=== PATIENT | male | born 1955 | race African-American/Black ===

== ENCOUNTER 2019-04-12 23:01 | Emergency (ER) | payer MEDICARE, SELFPAY ==
--- NOTE | 2019-04-12 23:05 | ECG_ITS ---
Measurements Intervals [place] Rate: 123 P: 64 [place]: 132 QRS: -44 QRSD: 88 T: 94 QT: 287 QTc: 412 SINUS TACHYCARDIA MARKED LEFT AXIS DEVIATION [QRS AXIS < -30] LEFT VENTRICULAR HYPERTROPHY AND ST-T CHANGE [VOLTAGE CRITERIA PLUS ST/T ABNORMALITY] Compared to ECG 10/03/2018 05:11:42 Sinus rhythm no longer present Myocardial infarct finding no longer present ST (T wave) deviation still present Electronically Signed On 04-13-2019 14:39:07 MEDICAL DEVICE by Wander Alvarado M.D. [id number]
--- NOTE | 2019-04-12 23:05 | XR_ITS ---
WS: [id number] CHEST XRAY TECHNIQUE: Portable chest. CLINICAL INFORMATION: cp COMPARISON: September 27, 2018 FINDINGS: Heart: Normal cardiac silhouette. Tortuous thoracic aorta. Lungs: Chronic emphysematous changes. Subsegmental atelectasis right midlung. No acute pulmonary infi ltrates. Bones: Normal visualized bony structures. XR/XR chest 1V portable [id number] IMPRESSION: No acute chest findings
[2019-04-12 23:12] VITALS: BP 105/86; PULSE 100; RESP 20; TEMP 36.7; O2SAT 100; BMI 25.8
[2019-04-13 00:06] LABS: Basophils % 0.5 %; Eosinophils # 0.2 10^3/uL (0.0-0.8); Hematocrit 41.3 % (42.0-52.0); Hemoglobin 13.1 g/dL (11.7-16.6); Lymphocytes # 1.8 10^3/uL (0.8-4.8); Lymphocytes % 22.2 %; Mean Corpuscular HGB Conc 31.7 g/dL (30.0-36.0); Mean Corpuscular Hemoglobin 30.9 pg (28.0-34.0); Mean Corpuscular Volume 97.4 fL (80-94); Mean Platelet Volume 10.1 fL (7.4-10.4); Monocytes # 0.6 10^3/uL (0.2-0.9); Monocytes % 7.2 %; Neutrophils # 5.3 10^3/uL (1.8-7.7); Neutrophils % 67.8 %; Nucleated Red Blood Cells % 0 %; Platelet Count 271 10^3/cmm (130-400); Red Blood Count 4.24 10^6/uL (4.1-5.3); White Blood Count 7.9 10^3/uL (4.0-10.0)
[2019-04-13 00:20] LABS: Alanine Aminotransferase 16 U/L (0-41); Albumin Level 3.8 g/dL (3.5-5.2); Alkaline Phosphatase 106 IU/L (40-130); Anion Gap 17.3 (5-19); Aspartate Amino Transferase 25 U/L (0-40); Blood Urea Nitrogen 17 mg/dL (8-23); Calcium 9.4 mg/Dl (8.8-10.2); Carbon Dioxide 21 mmol/L (22-29); Chloride 104 mmol/L (98-107); Globulin 4.2 g/dL (1.3-4.6); Glomerular Filtration Rate 43.5 mL/min (90-130); Glucose 125 mg/dL (74-106); Potassium 4.3 mmol/L (3.5-5.1); Sodium 138 mmol/L (136-145); Total Bilirubin 0.2 mg/dL (0.15-1.2)
[2019-04-13 00:23] LABS: Troponin(5th) Baseline 26 ng/mL (0-15)
[2019-04-13 00:49] VITALS: BP 172/131; PULSE 120; RESP 24; O2SAT 98
--- NOTE | 2019-04-13 00:52 | ED_ITS ---
Entered by Verónica Tavares, acting as scribe for Emily Francisco MD Apr 12, 2019 23:01 HPI - Chest Pain General: Chief Complaint: Chest Pain Stated Complaint: CP Time Seen by Provider: 04/13/19 00:49 Source: patient Limitations: no limitations History of Present Illness: HPI narrative: 63 y/o male presents to the ED with complaint of chest discomfort and SOB. Pt states he has CHF and is followed by Dr. Berrios. Pt has also had a gout flare-up. Pt states he has had intermittent episodes for the past month. MD complaint: chest pain Onset (ago): hour(s) Timing of current episode: episodic Prior episodes: Yes Associated symptoms: Reports dyspnea; Deny abdominal pain, fever(s), nausea or vomiting Review of Systems Const: Denies: fever Eyes: Denies: change in vision ENMT: Denies: throat pain Card: Reports: chest pain Resp: Reports: shortness of breath GI: Denies: abdominal pain, nausea or vomiting Musc: Denies: back pain or joint pain Skin/Breast: Denies: rash Neuro: Denies: headache or behavioral changes Psych: Denies: depression Endo: Denies: excessive urination Kameron/Lymph: Denies: easy bruising All/Imm: Denies: hives PFSH ED PFSH: Statuses (acute, chronic, etc) shown below reflect problem list status as previously entered and may not be historically accurate Social History Smoking and tobacco status: current some day smoker Physical Exam Const: COMMON NORMALS: no apparent distress, oriented x3 and healthy appearing HENMT: COMMON NORMALS: normocephalic and external nose normal HEAD & SCALP: normocephalic NOSE: external nose normal Eye: COMMON NORMALS: PERRL PUPIL: Yes PERRL Neck/C-Spine: COMMON NORMALS: full ROM and no lymphadenopathy Chest: COMMONS NORMALS: inspection of chest normal Resp: COMMON NORMALS: normal respiratory effort, no use of accessory muscles and clear to auscultation bilaterally AUSCULTATION: clear to auscultation bilaterally Cardio: COMMON NORMALS: regular rate and regular rhythm RATE: regular rate RHYTHM: regular rhythm GI: COMMON NORMALS: normal to inspection, nondistended, normoactive bowel sounds, soft to palpation, non-tender and no masses PALPATION: Yes soft Back/Pelvis: THORACIC SPINE/UPPER BACK: Yes normal to inspection Extremity: COMMON NORMALS: normal to inspection, full ROM and normal capillary refill GENERAL: Yes weight-bearing difficulty LEFT LOWER EXTREMITY: Yes lower leg Neuro: COMMON NORMALS: oriented x3 Psych: COMMON NORMALS: mental status grossly normal and cooperative Skin: COMMON NORMALS: no rashes or lesions noted GENERAL SKIN EXAM: no rashes or lesions noted Course Vital Signs: Vital signs: Vital Signs Temperature 98.0 F 04/12/19 23:12 Pulse Rate 84 04/13/19 02:51 Respiratory Rate 23 H 04/13/19 02:51 Blood Pressure 172/110 04/13/19 02:51 Pulse Oximetry 99 04/13/19 02:51 MDM - Chest Pain MDM Narrative: Medical decision making narrative: Patient presents here with chest pain that is atypical in nature. He states is been going on for months. Patient's repeat troponin shows no delta change. EKGs here show no change from previous. He has no signs of acute coronary event. Patient CT scan here is normal. Patient is stable for discharge and is to follow-up with primary care doctor in 3 to 5 days and return if worsening. Lab Data: Labs: Lab Results 04/12/19 04/12/19 04/12/19 Range/Units 23:45 23:45 23:45 WBC 7.9 (4.0-10.0) 10^3/ uL RBC 4.24 (4.1-5.3) 10^6/u L Hgb 13.1 (11.7-16.6) g/dL Hct 41.3 L (42.0-52.0) % MCV 97.4 H (80-94) fL MCH 30.9 (28.0-34.0) pg MCHC 31.7 (30.0-36.0) g/dL RDW 14.0 (12.1-15.1) % Plt Count 271 (130-400) 10^3/c mm MPV 10.1 (7.4-10.4) fL Neut % (Auto) 67.8 % Lymph % (Auto) 22.2 % Crawford % (Auto) 7.2 % Eos % (Auto) 2.0 % Baso % (Auto) 0.5 % Neut # (Auto) 5.3 (1.8-7.7) 10^3/u L Lymph # (Auto) 1.8 (0.8-4.8) 10^3/u L Crawford # (Auto) 0.6 (0.2-0.9) 10^3/u L Eos # (Auto) 0.2 (0.0-0.8) 10^3/u L Baso # (Auto) 0.0 (0.0-0.1) 10^3/u L Nucleated RBC % (a uto) 0 % Nucleated RBCs # 0.0 /100WBC Sodium 138 (136-145) mmol/L Potassium 4.3 (3.5-5.1) mmol/L Chloride 104 (98-107) mmol/L Carbon Dioxide 21 L (22-29) mmol/L Anion Gap 17.3 (5-19) BUN 17 (8-23) mg/dL Creatinine 1.9 H (0.7-1.2) mg/dL GFR Calculation 43.5 L (90-130) mL/min Glucose 125 H (74-106) mg/dL Calcium 9.4 (8.8-10.2) mg/Dl Total Bilirubin 0.2 (0.15-1.2) mg/dL AST 25 (0-40) U/L ALT 16 (0-41) U/L Alkaline Phosphata se 106 (40-130) IU/L Troponin T Baselin e 26 H (0-15) ng/mL Troponin T 120 Min [place] (0-15) ng/mL Delta Troponin T (0-10) ABS# NT-Pro-B Natriuret Pep (0-125) pg/mL Total Protein 8.0 (6.6-8.7) g/dL Albumin 3.8 (3.5-5.2) g/dL Globulin 4.2 (1.3-4.6) g/dL 04/12/19 04/13/19 Range/Units 23:45 00:58 WBC (4.0-10.0) 10^3/ uL RBC (4.1-5.3) 10^6/u L Hgb (11.7-16.6) g/dL Hct (42.0-52.0) % MCV (80-94) fL MCH (28.0-34.0) pg MCHC (30.0-36.0) g/dL RDW (12.1-15.1) % Plt Count (130-400) 10^3/c mm MPV (7.4-10.4) fL Neut % (Auto) % Lymph % (Auto) % Crawford % (Auto) % Eos % (Auto) % Baso % (Auto) % Neut # (Auto) (1.8-7.7) 10^3/u L Lymph # (Auto) (0.8-4.8) 10^3/u L Crawford # (Auto) (0.2-0.9) 10^3/u L Eos # (Auto) (0.0-0.8) 10^3/u L Baso # (Auto) (0.0-0.1) 10^3/u L Nucleated RBC % (a uto) % Nucleated RBCs # /100WBC Sodium (136-145) mmol/L Potassium (3.5-5.1) mmol/L Chloride (98-107) mmol/L Carbon Dioxide (22-29) mmol/L Anion Gap (5-19) BUN (8-23) mg/dL Creatinine (0.7-1.2) mg/dL GFR Calculation (90-130) mL/min Glucose (74-106) mg/dL Calcium (8.8-10.2) mg/Dl Total Bilirubin (0.15-1.2) mg/dL AST (0-40) U/L ALT (0-41) U/L Alkaline Phosphata se (40-130) IU/L Troponin T Baselin e (0-15) ng/mL Troponin T 120 [address] [place] 24.17 H (0-15) ng/mL Delta Troponin T -1.83 L (0-10) ABS# NT-Pro-B Natriuret Pep 2438 H (0-125) pg/mL Total Protein (6.6-8.7) g/dL Albumin (3.5-5.2) g/dL Globulin (1.3-4.6) g/dL Imaging Data^: CT Chest: Radiologist's impression: Ordering Physician: Emily Francisco MD Date of Service: 04/13/19 Procedure(s): CT angio chest PE protcl [id number] Accession Number(s): [id number] cc: Emily Francisco MD PROCEDURE INFORMATION: Exam: CT Angiography Chest With Contrast Exam date and time: 04/13/2019 1:34 AM Age: 63 years old Clinical indication: Chest pain; Type not specified; Prior surgery; Surgery date: 6+ months; Surgery type: Stents; Additional info: Cp TECHNIQUE: Imaging protocol: Computed tomographic angiography of the chest with intravenous contrast. 3D rendering: MIP and/or 3D reconstructed images were created by the technologist. Total DLP: 1113.3 mGy-cm Radiation optimization: All CT scans at this facility use at least one of these dose optimization techniques: automated exposure control; mA and/or kV adjustment per patient size (includes targeted exams where dose is matched to clinical indication); or iterative reconstruction. Contrast material: VISI; Contrast volume: 95 ml; Contrast route: 20G; COMPARISON: CTA Chest-Pulmonary Emb [id number] 09/27/2018 8:19 AM FINDINGS: Pulmonary arteries: Normal. No pulmonary emboli. Aorta: Unremarkable. No aortic aneurysm. No aortic dissection. Inferior vena cava: There is some reflux of contrast material into the inferior vena cava and hepatic veins, findings that can be associated with heart failure. Lungs: There is a background of centrilobular emphysema. Pleural space: Unremarkable. No pneumothorax. No pleural effusion. Heart: Unremarkable. No cardiomegaly. No pericardial effusion. Kidneys and ureters: There are bilateral hypoattenuation cystic masses seen within both kidneys, largest is seen on the right measuring 2.2 cm. Lymph nodes: Unremarkable. No enlarged lymph nodes. Bones/joints: Unremarkable. No acute fracture. Soft tissues: Unremarkable. CT/CT angio chest PE protcl [id number] IMPRESSION: 1. There is no evidence for pulmonary emboli. 2. Reflux of contrast material in the inferior vena cava and hepatic veins could represent heart failure. 3. Multiple bilateral renal cysts, largest on the right measuring 2.2 cm. No further workup needed. EKG Data^: EKG 1: Attestation: I personally reviewed and interpreted this EKG as follows: EKG interpretation date: 04/13/19 EKG interpretation time: 23:07 Prior EKG tracings: available for review (no change ) Interpretation: Sinus tachycardia heart rate [address] or T wave abnormalities EKG 2: EKG interpretation date: 04/13/19 EKG interpretation time: 02:13 Prior EKG tracings: available for review Interpretation: Normal sinus rhythm heart rate 82 ST depression in V5 and V6 seen on previous EKGs no ST elevation QRS 91 QTC 411 Discharge Plan Discharge Patient Disposition: Home, Self-Care Clinical Impression: Chest pain Qualifiers: Chest pain type: unspecified Qualified Code(s): R07.9 - Chest pain, unspecified Hypertension Qualifiers: Hypertension type: essential hypertension Qualified Code(s): I10 - Essential (primary) hypertension Condition: Stable Prescriptions: New albuterol sulfate 90 mcg/actuation HFA aerosol inhaler 2 puff INHALATION Q6H PRN (Reason: shortness of breath or wheezing) Qty: 6.7 RF: 1 Discharge Orders: Discharge Order (Routine); Ordered 04/13/19 Ordered By: Emily Francisco Referrals: Desire Powers FNP [Primary Care Provider] - 4-7 days Discharge Diet: Advance as tolerated Discharge Activity: Resume usual activity Patient Instructions: Chest Pain (ED), Hypertension (ED) Discharge Date/Time: 04/13/19 02:52 Coding Level of Care Code ED Low Altitude Air Defense Gunner for Chg Fwd Exam Problem Focused The documentation recorded by the Chaitanya gregory Ashley, accurately reflects the service I personally performed and the decisions made by Nolan robert Korby, MD Apr 12, 2019 23:01
--- NOTE | 2019-04-13 00:56 | CTR_ITS ---
PROCEDURE INFORMATION: Exam: CT Angiography Chest With Contrast Exam date and time: 04/13/2019 1:34 AM Age: 63 years old Clinical indication: Chest pain; Type not specified; Prior surgery; Surgery date: 6+ months; Surgery type: Stents; Additional info: Cp TECHNIQUE: Imaging protocol: Computed tomographic angiography of the chest with intravenous contrast. 3D rendering: MIP and/or 3D reconstructed images were created by the technologist. Total DLP: 1113.3 mGy-cm Radiation optimization: All CT scans at this facility use at least one of these dose optimization techniques: automated exposure control; mA and/or kV adjustment per patient size (includes targeted exams where dose is matched to clinical indication); or iterative reconstruction. Contrast material: VISI; Contrast volume: 95 ml; Contrast route: 20G; COMPARISON: CTA Chest-Pulmonary Emb [id number] 09/27/2018 8:19 AM FINDINGS: Pulmonary arteries: Normal. No pulmonary emboli. Aorta: Unremarkable. No aortic aneurysm. No aortic dissection. Inferior vena cava: There is some reflux of contrast material into the inferior vena cava and hepatic veins, findings that can be associated with heart failure. Lungs: There is a background of centrilobular emphysema. Pleural space: Unremarkable. No pneumothorax. No pleural effusion. Heart: Unremarkable. No cardiomegaly. No pericardial effusion. Kidneys and ureters: There are bilateral hypoattenuation cystic masses seen within both kidneys, largest is seen on the right measuring 2.2 cm. Lymph nodes: Unremarkable. No enlarged lymph nodes. Bones/joints: Unremarkable. No acute fracture. Soft tissues: Unremarkable. CT/CT angio chest PE protcl [id number] IMPRESSION: 1. There is no evidence for pulmonary emboli. 2. Reflux of contrast material in the inferior vena cava and hepatic veins could represent heart failure. 3. Multiple bilateral renal cysts, largest on the right measuring 2.2 cm. No further workup needed. Radiation Dose CTDIVOL = (mGy): DLP = 1113.3 (mGy-cm)
--- NOTE | 2019-04-13 01:05 | ECG_ITS ---
Measurements Intervals [place] Rate: 82 P: 66 SD: 150 QRS: -47 QRSD: 91 T: 143 QT: 372 QTc: 436 SINUS RHYTHM LEFT AXIS DEVIATION [QRS AXIS < -30] LEFT VENTRICULAR HYPERTROPHY AND ST-T CHANGE [VOLTAGE CRITERIA PLUS ST/T ABNORMALITY] POSSIBLE ANTERIOR MYOCARDIAL INFARCTION , OF INDETERMINATE AGE [30 ms Q WAVE IN V3/V4, OR R < 0.2 mV IN V4] Compared to ECG 10/03/2018 05:11:42 No significant changes Electronically Signed On 04-13-2019 14:44:23 MARKETING AND DEVELOPMENT COORDINATOR by Wander Alvarado M.D. [id number]
[2019-04-13 01:08] VITALS: RESP 23
[2019-04-13] MEDS: morphine 4 mg/mL SDV 1 mL IVP (01:08)
[2019-04-13] MEDS: aspirin 325 mg Tablet PO (01:08)
[2019-04-13 01:21] LABS: NT Pro B Type Natriuretic Pept 2438 pg/mL (0-125)
[2019-04-13 01:29] VITALS: BP 166/120; PULSE 91; RESP 21; O2SAT 99
[2019-04-13 01:56] LABS: Troponin 5 2HR 24.17 ng/mL (0-15)
[2019-04-13] MEDS: iodixanol 320 mg/mL 100mL Btl IV (01:57)
[2019-04-13 01:59] LABS: Troponin 5 2HR Delta -1.83 ABS# (0-10)
[2019-04-13] MEDS: FUROsemide 10 mg/mL SDV 10mL 60 MG IVP (01:59)
[2019-04-13 02:51] VITALS: BP 172/110; PULSE 84; RESP 23; O2SAT 99
== END 2019-04-13 02:52 | disposition home or self-care (01) ==
PROVIDERS: Emergency Provider Emergency Medicine; Family Provider Nurse Practitioner; PCP Nurse Practitioner
DX: R07.9 Chest pain, unspecified (principal); I10 Essential (primary) hypertension; F17.210 Nicotine dependence, cigarettes, uncomplicated
CPT/HCPCS: 71045; 71275; 80053; 83880; 84484; 85025; 93005; 96374; 96375; 99282; J1940; J2270; Q9967

== ENCOUNTER 2019-07-20 04:10 | Emergency (ER) | payer MEDICARE, SELFPAY ==
--- NOTE | 2019-07-20 04:14 | ECG_ITS ---
Measurements Intervals [place] Rate: 96 P: 84 [place]: 144 QRS: 108 QRSD: 88 T: 125 QT: 338 QTc: 428 SINUS RHYTHM INDETERMINATE AXIS LEFT VENTRICULAR HYPERTROPHY AND ST-T CHANGE [VOLTAGE CRITERIA PLUS ST/T ABN ABNORMALITY] LATERAL MYOCARDIAL INFARCTION , OF INDETERMINATE AGE [40+ ms Q WAVE AND/OR ST/T AB ABNORMALITY IN I/aVL/V5/V6] Compared to ECG 04/13/2019 02:13:18 Indeterminate axis now present Left-axis deviation no longer present ST (T wave) deviation still present Myocardial infarct finding still present Electronically Signed On 07-20-2019 18:24:54 CDT by Sourav Berrios M.D. [id number]
--- NOTE | 2019-07-20 04:14 | XR_ITS ---
WS: [id number] PORTABLE CHEST HISTORY: Chest pain COMPARISON: 04/13/2019 Hyperinflated lungs. Linear areas of scar atelectasis in the central RIGHT lung. Normal vasculature. No pleural effusion or pneumothorax. Cardiac size: Mildly enlarged cardiac silhouette. Mediastinum/Aorta: Mildly ectatic aorta. Pulmonary arteries are dilated with rapid tapering. No osseous abnormality seen. XR/XR chest 1V portable [id number] IMPRESSION: 1. Mild emphysema and focal scarring or atelectasis in the RIGHT lung. 2. Ectatic thoracic aorta. 3. Pulmonary hypertension.
--- NOTE | 2019-07-20 04:17 | ED_ITS ---
HPI - Chest Pain General: Chief Complaint: Chest Pain Stated Complaint: chest pain Time Seen by Provider: 07/20/19 04:14 Source: patient and EMS Mode of arrival: EMS Limitations: no limitations History of Present Illness: HPI narrative: 64-year-old male has a history of coronary artery disease along with hypertension states he has been having pain in his ankles from his gout that started to radiate to his chest. He states his been having chest pain for the last 1 to 2 days. Patient given aspirin in route. He states his pain is improved slightly and currently has pain at 3 out of 10. He states the pain is been constant. He denies any shortness of breath or diaphoresis. MD complaint: chest pain Pertinent past history: coronary artery disease Onset (ago): day(s) Onset: during rest Pain location: substernal Pain radiation: none Severity: mild Quality: tightness Relieving factors: nothing Exacerbating factors: nothing Associated symptoms: Deny abdominal pain, dyspnea, fever(s), nausea or vomiting Review of Systems Const: Denies: fever, chills, body aches or change in appetite Eyes: Denies: blurry vision or eye discomfort ENMT: Denies: throat pain or dental pain Card: Reports: chest pain Resp: Denies: shortness of breath GI: Denies: abdominal pain, nausea, vomiting or diarrhea : Denies: painful urination Musc: Reports: joint pain; Denies: neck pain or back pain Skin/Breast: Denies: rash Neuro: Denies: headache Psych: Denies: depression Kameron/Lymph: Denies: easy bruising All/Imm: Denies: hives PFS ED PFSH: Social History Smoking and tobacco status: current every day smoker Physical Exam Const: COMMON NORMALS: no apparent distress, oriented x3 and healthy appearing HENMT: COMMON NORMALS: normocephalic and head/scalp atraumatic HEAD & SCALP: normocephalic and atraumatic Eye: COMMON NORMALS: PERRL and EOMs intact bilaterally PUPIL: Yes PERRL Neck/C-Spine: COMMON NORMALS: full ROM and supple Chest: COMMONS NORMALS: inspection of chest normal and palpation of chest normal Resp: COMMON NORMALS: normal respiratory effort, no retractions, no use of accessory muscles and clear to auscultation bilaterally AUSCULTATION: clear to auscultation bilaterally Cardio: COMMON NORMALS: regular rate, regular rhythm and no murmurs RATE: regular rate RHYTHM: regular rhythm GI: COMMON NORMALS: normal to inspection, nondistended, normoactive bowel sounds, soft to palpation, non-tender and no masses PALPATION: Yes soft Extremity: COMMON NORMALS: normal to inspection and full ROM Neuro: COMMON NORMALS: oriented x3, moves all extremities and no focal motor deficits Psych: COMMON NORMALS: mental status grossly normal, thought process normal and cooperative THOUGHT PROCESS: normal thought process Skin: COMMON NORMALS: no rashes or lesions noted and no wounds GENERAL SKIN EXAM: no rashes or lesions noted Course Vital Signs: Vital signs: Vital Signs Temperature 98.4 F 07/20/19 04:21 Pulse Rate 98 07/20/19 04:21 Respiratory Rate 16 07/20/19 04:33 Blood Pressure 161/111 07/20/19 04:21 Pulse Oximetry 98 07/20/19 04:33 MDM - Chest Pain MDM Narrative: Medical decision making narrative: Patient presents for chest pain that is atypical in nature. Patient also ankle pain from his gout. Patient's initial troponin is 46. Will check 2-hour troponin patient likely will be stable for discharge if no change. He has no signs of pulmonary embolism. Patient's care turned over to Dr. Michelle to follow-up on 2-hour troponin. Lab Data: Labs: Lab Results 07/20/19 07/20/19 07/20/19 Range/Units 04:02 04:02 04:02 WBC 6.9 (4.0-10.0) 10^3/ uL RBC 4.20 (4.1-5.3) 10^6/u L Hgb 12.8 (11.7-16.6) g/dL Hct 40.4 L (42.0-52.0) % MCV 96.2 H (80-94) fL MCH 30.5 (28.0-34.0) pg MCHC 31.7 (30.0-36.0) g/dL RDW 14.4 (12.1-15.1) % Plt Count 241 (130-400) 10^3/c mm MPV 11.5 H (7.4-10.4) fL Neut % (Auto) 65.1 % Lymph % (Auto) 22.7 % Terrell % (Auto) 10.2 % Eos % (Auto) 1.2 % Baso % (Auto) 0.7 % Neut # (Auto) 4.5 (1.8-7.7) 10^3/u L Lymph # (Auto) 1.6 (0.8-4.8) 10^3/u L [place]rell # (Auto) 0.7 (0.2-0.9) 10^3/u L Eos # (Auto) 0.1 (0.0-0.8) 10^3/u L Baso # (Auto) 0.1 (0.0-0.1) 10^3/u L Nucleated RBC % (a uto) 0 % Nucleated RBCs # 0.0 /100WBC Sodium 138 (136-145) mmol/L Potassium 4.6 (3.5-5.1) mmol/L Chloride 103 (98-107) mmol/L Carbon Dioxide 22 (22-29) mmol/L Anion Gap 17.6 (5-19) BUN 27 H (8-23) mg/dL Creatinine 2.4 H (0.7-1.2) mg/dL GFR Calculation 33.1 L (90-130) mL/min Glucose 110 (65-115) mg/dL Calculated Osmolal ity 284 L (285-295) mOsm/k g Calcium 8.6 (8.5-10.5) mg/dL Total Bilirubin 0.4 (0.15-1.2) mg/dL AST 34 (0-40) U/L ALT 16 (0-41) U/L Alkaline Phosphata se 97 (40-130) IU/L Troponin T Baselin e 46 H (0-15) ng/mL Total Protein 6.3 L (6.6-8.7) g/dL Albumin 2.9 L (3.5-5.2) g/dL Globulin 3.4 (1.3-4.6) g/dL Imaging Data^: CXR: Attestation: I personally reviewed and interpreted this imaging study as follows: My impression: no acute abnormality Discharge Plan Discharge Clinical Impression: Chest pain Condition: Stable Prescriptions: No Action albuterol sulfate 90 mcg/actuation HFA aerosol inhaler 2 puff INHALATION Q6H PRN (Reason: shortness of breath or wheezing) Qty: 6.7 RF: 1 Referrals: Desire Powers FNP [Primary Care Provider] - Coding Level of Care Code ED Clinical Data Management Director for Chg Fwd Exam Comprehensive
[2019-07-20 04:21] VITALS: BP 161/111; PULSE 98; RESP 20; TEMP 36.9; O2SAT 98; BMI 25.8
[2019-07-20 04:33] VITALS: RESP 16; O2SAT 98
[2019-07-20] MEDS: morphine 4 mg/mL SDV 1 mL IVP (04:33)
[2019-07-20 04:34] LABS: Basophils # 0.1 10^3/uL (0.0-0.1); Basophils % 0.7 %; Eosinophils # 0.1 10^3/uL (0.0-0.8); Eosinophils % 1.2 %; Hematocrit 40.4 % (42.0-52.0); Hemoglobin 12.8 g/dL (11.7-16.6); Lymphocytes # 1.6 10^3/uL (0.8-4.8); Lymphocytes % 22.7 %; Mean Corpuscular HGB Conc 31.7 g/dL (30.0-36.0); Mean Corpuscular Hemoglobin 30.5 pg (28.0-34.0); Mean Corpuscular Volume 96.2 fL (80-94); Mean Platelet Volume 11.5 fL (7.4-10.4); Monocytes # 0.7 10^3/uL (0.2-0.9); Monocytes % 10.2 %; Neutrophils # 4.5 10^3/uL (1.8-7.7); Neutrophils % 65.1 %; Nucleated Red Blood Cells % 0 %; Platelet Count 241 10^3/cmm (130-400); Red Cell Distribution Width 14.4 % (12.1-15.1); White Blood Count 6.9 10^3/uL (4.0-10.0)
[2019-07-20] MEDS: ondansetron 2 mg/ML SDV 2 mL 4 MG IVP (04:34)
[2019-07-20 04:59] LABS: Alanine Aminotransferase 16 U/L (0-41); Albumin Level 2.9 g/dL (3.5-5.2); Alkaline Phosphatase 97 IU/L (40-130); Anion Gap 17.6 (5-19); Aspartate Amino Transferase 34 U/L (0-40); Blood Urea Nitrogen 27 mg/dL (8-23); Calcium 8.6 mg/dL (8.5-10.5); Carbon Dioxide 22 mmol/L (22-29); Chloride 103 mmol/L (98-107); Globulin 3.4 g/dL (1.3-4.6); Glomerular Filtration Rate 33.1 mL/min (90-130); Glucose 110 mg/dL (65-115); Osmolality Calculated 284 mOsm/kg (285-295); Potassium 4.6 mmol/L (3.5-5.1); Sodium 138 mmol/L (136-145); Total Bilirubin 0.4 mg/dL (0.15-1.2); Total Protein 6.3 g/dL (6.6-8.7)
[2019-07-20 05:01] LABS: Troponin(5th) Baseline 46 ng/mL (0-15)
--- NOTE | 2019-07-20 05:10 | PC.NURSE ---
during pt rounds, pt requesting water to drink. Per Dr Nichols, renato for pt to drink water
--- NOTE | 2019-07-20 06:08 | PC.NURSE ---
during pt rounding, pt states he is having increased work of breathing. Pt states he has not taken his Rx advair last noc, only rescue inhaler
--- NOTE | 2019-07-20 06:14 | ECG_ITS ---
Measurements Intervals [place] Rate: 86 P: 51 [place]: 145 QRS: -40 QRSD: 89 T: 223 QT: 365 QTc: 437 SINUS RHYTHM LEFT AXIS DEVIATION [QRS AXIS < -30] LEFT VENTRICULAR HYPERTROPHY AND ST-T CHANGE [VOLTAGE CRITERIA PLUS ST/T AB ABNORMALITY] Compared to ECG 04/13/2019 02:13:18 Myocardial infarct finding no longer present ST (T wave) deviation still present Electronically Signed On 07-20-2019 18:26:49 CDT by Sourav Berrios M.D. [id number]
[2019-07-20] MEDS: ipratropium-albuterol 3 mL Neb INHALATION (06:17)
[2019-07-20] MEDS: hyDRALAzine 20 mg/mL INJ 1 mL 10 MG IVP (06:23)
[2019-07-20 06:27] VITALS: PULSE 88; RESP 15; O2SAT 99
[2019-07-20 06:29] VITALS: PULSE 91; RESP 15; O2SAT 100
[2019-07-20 06:37] LABS: Troponin 5 2HR 41.11 ng/mL (0-15)
[2019-07-20 07:16] VITALS: BP 156/121; PULSE 119; RESP 22; O2SAT 97
== END 2019-07-20 07:16 | disposition home or self-care (01) ==
PROVIDERS: Emergency Medicine; Emergency Provider Family Medicine; Family Provider Nurse Practitioner; PCP Nurse Practitioner
DX: R07.9 Chest pain, unspecified (principal); I25.10 Atherosclerotic heart disease of native coronary artery without angina pectoris; I10 Essential (primary) hypertension; F17.210 Nicotine dependence, cigarettes, uncomplicated
CPT/HCPCS: 12345; 36415; 71045; 80053; 84484; 85025; 93005; 94640; 96374; 96375; 99283; 99284; J0360; J2270; J2405; J7611

== ENCOUNTER → 2019-08-13 11:29 | Outpatient (BNVA) | payer MEDICARE, SELFPAY | PROVIDERS: Family Provider Nurse Practitioner; PCP Family Medicine; Referring Provider Family Medicine; Visit Provider Family Medicine | DX: I12.9 Hypertensive chronic kidney disease with stage 1 through stage 4 chronic kidney disease, or unspecified chronic kidney disease (principal); N18.3 Chronic kidney disease, stage 3 (moderate); N40.0 Benign prostatic hyperplasia without lower urinary tract symptoms; I25.5 Ischemic cardiomyopathy | CPT/HCPCS: 80053; G0103 ==

== ENCOUNTER 2019-08-16 10:24 | Inpatient (IN) | payer MEDICARE, SELFPAY ==
[2019-08-16 10:35] VITALS: BP 144/91; PULSE 82; RESP 20; O2SAT 98; BMI 26.6
--- NOTE | 2019-08-16 10:42 | ECG_ITS ---
Measurements Intervals [place] Rate: 78 P: 46 [place]: 142 QRS: -40 QRSD: 89 T: 209 QT: 407 QTc: 466 SINUS RHYTHM LEFT AXIS DEVIATION [QRS AXIS < -30] LEFT VENTRICULAR HYPERTROPHY AND ST-T CHANGE [VOLTAGE CRITERIA PLUS ST/T ABN ABNORMALITY] POSSIBLE SEPTAL MYOCARDIAL INFARCTION , OF INDETERMINATE AGE [30 ms Q WAVE IN V1 V1/V2] Compared to ECG 08/16/2019 11:00:41 Myocardial infarct finding now present Sinus arrhythmia no longer present ST (T wave) deviation still present Electronically Signed On 08-17-2019 13:00:19 CDT by Wander Alvarado M.D. [id number]
--- NOTE | 2019-08-16 10:42 | XR_ITS ---
WS: [id number] PORTABLE CHEST HISTORY: SOB COMPARISON: None available. Mild hyperexpansion of the lungs. Focal scar or atelectasis in the central RIGHT lung. No pneumonia. No pleural effusion or pneumothorax. Cardiac size: Normal. Mediastinum/Aorta: Mild atherosclerosis aorta. No osseous abnormality seen. XR/XR chest 1V portable [id number] IMPRESSION: Stable chest. Chronic emphysema.
--- NOTE | 2019-08-16 10:45 | ED_ITS ---
Documented by User: RICHIE Castellanos 08/16/19 15:13 HPI - SOB/Dyspnea General: Chief Complaint: Shortness of Breath/Dyspnea Stated Complaint: DIRECT ADMIT Time Seen by Provider: 08/16/19 10:40 History of Present Illness: HPI Narrative: Patient is a 64-year-old male who comes to the ED with shortness of breath. Patient has a past medical history of pulmonary hypertension, hypertension, hyperlipidemia, CKD, systolic and diastolic heart failure and ischemic cardiomyopathy. Patient was sent to the ED for direct admit by Dr. Berrios. Patient has been having increased shortness of breath upon ambulation and also when laying flat. Patient says that increasing shortness of breath has been occurring over the past several weeks. Denies having any chest pain. He states he does have some mild tingling in his upper left extremity. Dr. Berrios would like patient to be admitted so he can perform an echo. Associated symptoms: Reports orthopnea; Deny abdominal pain, chest pain, fever(s), nausea, palpitations or vomiting Review of Systems Const: Denies: fever(s), chills or fatigue Eyes: Denies: change in vision or eye discomfort ENMT: Denies: throat pain, odynophagia, nasal discharge or nasal congestion Card: Reports: dyspnea on exertion and orthopnea; Denies: chest pain, palpitations, edema or swelling of feet/ankles Resp: Reports: dyspnea; Denies: productive cough or non-productive cough GI: Denies: abdominal pain, nausea, vomiting, diarrhea, constipation or hematochezia : Denies: flank pain, difficulty urinating, dysuria or hematuria Musc: Denies: neck pain, back pain or extremity swelling Skin/Breast: Denies: rash or new lesions Neuro: Denies: headache(s), numbness in extremities or weakness in extremities PFSH ED PFSH: Medical History Chronic kidney disease Combined systolic and diastolic cardiac dysfunction 12/06/2018: LVEF 56%, mild aortic stenosis, mild aortic regurgitation, severe pulmonary hypertension 70 mmHg History of pulmonary embolism Hyperlipidemia Hypertension Ischemic cardiomyopathy Mild aortic regurgitation Mild aortic stenosis 12/07/2018: Mean gradient 4.6 mmHg, aortic valve area 2.2 cm? Moderate to severe pulmonary hypertension 12/07/2018: 70 mmHg Presence of stent in LAD coronary artery Smoking Family History Family/Other Cancer Mother Dementia Diabetes Sister Diabetes Denies family history of CAD (coronary artery disease) Clotting disorder Hyperlipidemia Psychiatric illness Chronic kidney disease (CKD) Suicide Anesthesia complication Bleeding disorder Family history of premature coronary artery disease Lung disease Hypertension Stroke Social History Smoking and tobacco status: current every day smoker cigarettes Years cigaret kristen smoked: 20 Physical Exam Const: COMMON NORMALS: patient oriented x3 HENMT: COMMON NORMALS: normocephalic HEAD & SCALP: normocephalic MOUTH: Normal oral and palatal mucosa present THROAT: posterior oropharynx normal and uvula midline Neck/C-Spine: COMMON NORMALS: supple GENERAL: Yes normal visual inspection Resp: COMMON NORMALS: normal respiratory effort, No retractions, No use of accessory muscles and clear to auscultation bilaterally EFFORT & INSPECTION: Yes tachypneic and Yes labored (patient appeared to labor and his breathing. He was not able to speak in complete sentences and took breaks to breathe.) AUSCULTATION: clear to auscultation bilaterally Cardio: COMMON NORMALS: regular rate, regular rhythm, S1 normal heart sound present, S2 normal heart sound present, No gallops present (Cardio), No clicks present (Cardio), No murmurs present (Cardio) and Peripheral pulses 2+ throughout RATE: regular rate RHYTHM: regular rhythm HEART SOUNDS: S1 normal heart sound present and S2 normal heart sound present PERIPHERAL PULSES: Peripheral pulses 2+ throughout GI: COMMON NORMALS: Normal to inspection, nondistended, normoactive bowel sounds present, Soft to palpation, non-tender and no masses PALPATION: Yes Soft to palpation : COMMON NORMALS: Yes no CVA tenderness BLADDER/KIDNEY EXAM: Yes no CVA tenderness Back/Pelvis: COMMON NORMALS: no CVA tenderness Extremity: COMMON NORMALS: normal to inspection and no pedal edema Neuro: COMMON NORMALS: patient oriented x3 and moves all extremities Skin: COMMON NORMALS: no rashes or lesions noted GENERAL SKIN EXAM: no rashes or lesions noted and dry skin Course ED course: I spoke with Dr. Fraser about patient and told her that he was sent in by Dr. German to be a direct admit. I have done all initial cardiac work-up on patient. Dr. Fraser will be handling admitting orders for patient. Consultations: Consultation #1: Vital Signs: Vital signs: Vital Signs Pulse Rate 73 08/16/19 17:05 Respiratory Rate 20 H 08/16/19 17:05 Blood Pressure 136/89 08/16/19 17:05 Pulse Oximetry 100 08/16/19 17:05 MDM - SOB/Dyspnea MDM Narrative: Medical decision making narrative: I spoke with Dr. Fraser about patient and told her that he was sent in by Dr. German to be a direct admit. I have done all initial cardiac work-up on patient. Dr. Fraser will be handling admitting orders for patient. Lab Data: Attestation: I reviewed the patient's lab results. Labs: Lab Results 08/16/19 08/16/19 08/16/19 Range/Units 10:43 10:44 11:14 WBC 6.6 (4.0-10.0) 10^3/ uL RBC 4.01 L (4.1-5.3) 10^6/u L Hgb 12.3 (11.7-16.6) g/dL Hct 39.0 L (42.0-52.0) % MCV 97.3 H (80-94) fL MCH 30.7 (28.0-34.0) pg MCHC 31.5 (30.0-36.0) g/dL RDW 16.2 H (12.1-15.1) % Plt Count 216 (130-400) 10^3/c mm MPV 11.4 H (7.4-10.4) fL Neut % (Auto) 66.1 % Lymph % (Auto) 21.1 % [place] % (Auto) 9.3 % Eos % (Auto) 3.0 % Baso % (Auto) 0.3 % Neut # (Auto) 4.4 (1.8-7.7) 10^3/u L Lymph # (Auto) 1.4 (0.8-4.8) 10^3/u L [place] # (Auto) 0.6 (0.2-0.9) 10^3/u L Eos # (Auto) 0.2 (0.0-0.8) 10^3/u L Baso # (Auto) 0.0 (0.0-0.1) 10^3/u L Nucleated RBC % (a uto) 0 % Nucleated RBCs # 0.0 /100WBC Sodium 138 (136-145) mmol/L Potassium 5.0 (3.5-5.1) mmol/L Chloride 105 (98-107) mmol/L Carbon Dioxide 20 L (22-29) mmol/L Anion Gap 18.0 (5-19) BUN 27 H (8-23) mg/dL Creatinine 2.5 H (0.7-1.2) mg/dL GFR Calculation 31.6 L (90-130) mL/min Glucose 103 (65-115) mg/dL Calculated Osmolal ity 283 L (285-295) mOsm/k g Calcium 8.9 (8.5-10.5) mg/dL Magnesium 1.9 (1.7-2.3) mg/dL Total Bilirubin 0.2 (0.15-1.2) mg/dL AST 26 (0-40) U/L ALT 15 (0-41) U/L Alkaline Phosphata se 105 (40-130) IU/L Troponin T Baselin e (0-15) ng/mL Troponin T 120 Min anisha (0-15) ng/mL Delta Troponin T (0-10) ABS# NT-Pro-B Natriuret Pep [id number] H (0-125) pg/mL Total Protein 6.6 (6.6-8.7) g/dL Albumin 3.1 L (3.5-5.2) g/dL Globulin 3.5 (1.3-4.6) g/dL Urine Color Yellow (Yellow) Urine Appearance Clear (CLEAR) Urine pH 6.5 (5-7) Ur Specific Gravit y 1.005 (1.005-1.030) Urine Protein 1+ H (Negative) Urine Glucose (UA) Norm (Normal) Urine Ketones Negative (Negative) Urine Blood Neg (Negative) Urine Nitrate Negative (Negative) Urine Bilirubin Neg (NEGATIVE) Urine Urobilinogen Norm (Negative) mg/dL Ur Leukocyte Missy ase Negative (Negative) Urine RBC None (0-2) /hpf Urine WBC None (0-5) /hpf Ur Squamous Epith Cells Rare (0-5) Urine Bacteria Trace (NONE) 08/16/19 08/16/19 Range/Units 11:14 13:25 WBC (4.0-10.0) 10^3/ uL RBC (4.1-5.3) 10^6/u L Hgb (11.7-16.6) g/dL Hct (42.0-52.0) % MCV (80-94) fL MCH (28.0-34.0) pg MCHC (30.0-36.0) g/dL RDW (12.1-15.1) % Plt Count (130-400) 10^3/c mm MPV (7.4-10.4) fL Neut % (Auto) % Lymph % (Auto) % [place] % (Auto) % Eos % (Auto) % Baso % (Auto) % Neut # (Auto) (1.8-7.7) 10^3/u L Lymph # (Auto) (0.8-4.8) 10^3/u L [place] # (Auto) (0.2-0.9) 10^3/u L Eos # (Auto) (0.0-0.8) 10^3/u L Baso # (Auto) (0.0-0.1) 10^3/u L Nucleated RBC % (a uto) % Nucleated RBCs # /100WBC Sodium (136-145) mmol/L Potassium (3.5-5.1) mmol/L Chloride (98-107) mmol/L Carbon Dioxide (22-29) mmol/L Anion Gap (5-19) BUN (8-23) mg/dL Creatinine (0.7-1.2) mg/dL GFR Calculation (90-130) mL/min Glucose (65-115) mg/dL Calculated Osmolal ity (285-295) mOsm/k g Calcium (8.5-10.5) mg/dL Magnesium (1.7-2.3) mg/dL Total Bilirubin (0.15-1.2) mg/dL AST (0-40) U/L ALT (0-41) U/L Alkaline Phosphata se (40-130) IU/L Troponin T Baselin e 34 H (0-15) ng/mL Troponin T 120 Min anisha 30.34 H (0-15) ng/mL Delta Troponin T -3.66 L (0-10) ABS# NT-Pro-B Natriuret Pep (0-125) pg/mL Total Protein (6.6-8.7) g/dL Albumin (3.5-5.2) g/dL Globulin (1.3-4.6) g/dL Urine Color (Yellow) Urine Appearance (CLEAR) Urine pH (5-7) Ur Specific Gravit y (1.005-1.030) Urine Protein (Negative) Urine Glucose (UA) (Normal) Urine Ketones (Negative) Urine Blood (Negative) Urine Nitrate (Negative) Urine Bilirubin (NEGATIVE) Urine Urobilinogen (Negative) mg/dL Ur Leukocyte Missy ase (Negative) Urine RBC (0-2) /hpf Urine WBC (0-5) /hpf Ur Squamous Epith Cells (0-5) Urine Bacteria (NONE) Imaging Data^: CXR: Attestation: I personally reviewed and interpreted this imaging study as follows: Radiologist's impression: [address] [address] XRay Report Signed Patient: Fredy Hammonds Unit #: [id number] : 1955 Age/Sex: 64 / M ADM Date: 08/16/19 Loc: ER Room/Bed: Attending Dr: Ordering Provider/Ordering MD: Daniel Maurer Date of Service: 08/16/19 Procedure(s): XR chest 1V portable [id number] Accession Number(s): [id number] Report Number: [id number] WS: [id number] PORTABLE CHEST HISTORY: SOB COMPARISON: None available. Mild hyperexpansion of the lungs. Focal scar or atelectasis in the central RIGHT lung. No pneumonia. No pleural effusion or pneumothorax. Cardiac size: Normal. Mediastinum/Aorta: Mild atherosclerosis aorta. No osseous abnormality seen. XR/XR chest 1V portable [id number] IMPRESSION: Stable chest. Chronic emphysema. Dictated By: Reyna Victoria DO Signed By: Reyna Victoria DO Signed Date/Time: 08/16/19 1103 DD/ 1102 EKG Data^: EKG 1: Attestation: I personally reviewed and interpreted this EKG as follows: EKG Interpretation Date: 08/16/19 Interpretation: Sinus rhythm, 85 bpm, P waves present, ST segment depression seen in leads V5 V6 in 2, flipped T waves in lead II. Discharge Plan Discharge Prescriptions: No Action Brilinta 90 mg tablet 90 mg PO BID RF: 0 hydralazine 25 mg tablet 25 mg PO TID RF: 0 isosorbide mononitrate 30 mg tablet extended release 24 hr 30 mg PO DAILY Qty: 90 RF: 2 albuterol sulfate 90 mcg/actuation HFA aerosol inhaler 2 inh INHALATION Q4H PRN (Reason: shortness of breath or wheezing) RF: 0 aspirin [Adult Aspirin Regimen] 81 mg tablet,delayed release (DR/EC) 81 mg PO DAILY RF: 0 carvedilol 12.5 mg tablet 12.5 mg PO BID RF: 0 diclofenac sodium 75 mg tablet,delayed release (DR/EC) 75 mg PO Q12H PRN (Reason: pain) Qty: 20 RF: 0 Wixela Inhub 250-50 mcg/dose Blister With Device 2 inh INHALATION BID PRN (Reason: UNKNOWN) RF: 0 Nitrostat 0.4 mg Tablet, Sublingual 0.4 mg SUBLINGUAL Q5M PRN (Reason: Chest Pain) RF: 0 furosemide 40 mg tablet 60 - 80 mg PO BID RF: 0 potassium chloride 20 mEq tablet extended release 20 - 40 meq PO DAILY RF: 0 Referrals: Jane Vega MD [Primary Care Provider] - Coding Level of Care Code ED Post [facility] Digger for Chg Fwd Exam Comprehensive Documented by User: Meena Fraser MD 08/16/19 17:38 HPI - SOB/Dyspnea General: Chief Complaint: Shortness of Breath/Dyspnea Stated Complaint: DIRECT ADMIT Time Seen by Provider: 08/16/19 10:40 PFSH ED PFSH: Medical History Chronic kidney disease Combined systolic and diastolic cardiac dysfunction 12/06/2018: LVEF 56%, mild aortic stenosis, mild aortic regurgitation, severe pulmonary hypertension 70 mmHg History of pulmonary embolism Hyperlipidemia Hypertension Ischemic cardiomyopathy Mild aortic regurgitation Mild aortic stenosis 12/07/2018: Mean gradient 4.6 mmHg, aortic valve area 2.2 cm? Moderate to severe pulmonary hypertension 12/07/2018: 70 mmHg Presence of stent in LAD coronary artery Smoking Family History Family/Other Cancer Mother Dementia Diabetes Sister Diabetes Denies family history of CAD (coronary artery disease) Clotting disorder Hyperlipidemia Psychiatric illness Chronic kidney disease (CKD) Suicide Anesthesia complication Bleeding disorder Family history of premature coronary artery disease Lung disease Hypertension Stroke Social History Smoking and tobacco status: current every day smoker cigarettes Years cigarettes smoked: 20 Course ED course: I assumed care of this patient from Daniel - I spoke with the patient and did an exam. I also spoke with Dr. Berrios regarding the plan of care and results. He will admit the patient to the hospital for management of his acute CHF decompensation. Patient still with some SOB, but sats are good and he was complaining of being hungry. Vital Signs: Vital signs: Vital Signs Pulse Rate 73 08/16/19 17:05 Respiratory Rate 20 H 08/16/19 17:05 Blood Pressure 136/89 08/16/19 17:05 Pulse Oximetry 100 08/16/19 17:05 MDM - SOB/Dyspnea Lab Data: Labs: Lab Results 08/16/19 08/16/19 08/16/19 Range/Units 10:43 10:44 11:14 WBC 6.6 (4.0-10.0) 10^3/ uL RBC 4.01 L (4.1-5.3) 10^6/u L Hgb 12.3 (11.7-16.6) g/dL Hct 39.0 L (42.0-52.0) % MCV 97.3 H (80-94) fL MCH 30.7 (28.0-34.0) pg MCHC 31.5 (30.0-36.0) g/dL RDW 16.2 H (12.1-15.1) % Plt Count 216 (130-400) 10^3/c mm MPV 11.4 H (7.4-10.4) fL Neut % (Auto) 66.1 % Lymph % (Auto) 21.1 % [place] % (Auto) 9.3 % Eos % (Auto) 3.0 % Baso % (Auto) 0.3 % Neut # (Auto) 4.4 (1.8-7.7) 10^3/u L Lymph # (Auto) 1.4 (0.8-4.8) 10^3/u L [place] # (Auto) 0.6 (0.2-0.9) 10^3/u L Eos # (Auto) 0.2 (0.0-0.8) 10^3/u L Baso # (Auto) 0.0 (0.0-0.1) 10^3/u L Nucleated RBC % (a uto) 0 % Nucleated RBCs # 0.0 /100WBC Sodium 138 (136-145) mmol/L Potassium 5.0 (3.5-5.1) mmol/L Chloride 105 (98-107) mmol/L Carbon Dioxide 20 L (22-29) mmol/L Anion Gap 18.0 (5-19) BUN 27 H (8-23) mg/dL Creatinine 2.5 H (0.7-1.2) mg/dL GFR Calculation 31.6 L (90-130) mL/min Glucose 103 (65-115) mg/dL Calculated Osmolal ity 283 L (285-295) mOsm/k g Calcium 8.9 (8.5-10.5) mg/dL Magnesium 1.9 (1.7-2.3) mg/dL Total Bilirubin 0.2 (0.15-1.2) mg/dL AST 26 (0-40) U/L ALT 15 (0-41) U/L Alkaline Phosphata se 105 (40-130) IU/L Troponin T Baselin e (0-15) ng/mL Troponin T 120 Min anisha (0-15) ng/mL Delta Troponin T (0-10) ABS# NT-Pro-B Natriuret Pep [id number] H (0-125) pg/mL Total Protein 6.6 (6.6-8.7) g/dL Albumin 3.1 L (3.5-5.2) g/dL Globulin 3.5 (1.3-4.6) g/dL Urine Color Yellow (Yellow) Urine Appearance Clear (CLEAR) Urine pH 6.5 (5-7) Ur Specific Gravit y 1.005 (1.005-1.030) Urine Protein 1+ H (Negative) Urine Glucose (UA) Norm (Normal) Urine Ketones Negative (Negative) Urine Blood Neg (Negative) Urine Nitrate Negative (Negative) Urine Bilirubin Neg (NEGATIVE) Urine Urobilinogen Norm (Negative) mg/dL Ur Leukocyte Missy ase Negative (Negative) Urine RBC None (0-2) /hpf Urine WBC None (0-5) /hpf Ur Squamous Epith Cells Rare (0-5) Urine Bacteria Trace (NONE) 08/16/19 08/16/19 Range/Units 11:14 13:25 WBC (4.0-10.0) 10^3/ uL RBC (4.1-5.3) 10^6/u L Hgb (11.7-16.6) g/dL Hct (42.0-52.0) % MCV (80-94) fL MCH (28.0-34.0) pg MCHC (30.0-36.0) g/dL RDW (12.1-15.1) % Plt Count (130-400) 10^3/c mm MPV (7.4-10.4) fL Neut % (Auto) % Lymph % (Auto) % [place] % (Auto) % Eos % (Auto) % Baso % (Auto) % Neut # (Auto) (1.8-7.7) 10^3/u L Lymph # (Auto) (0.8-4.8) 10^3/u L [place] # (Auto) (0.2-0.9) 10^3/u L Eos # (Auto) (0.0-0.8) 10^3/u L Baso # (Auto) (0.0-0.1) 10^3/u L Nucleated RBC % (a uto) % Nucleated RBCs # /100WBC Sodium (136-145) mmol/L Potassium (3.5-5.1) mmol/L Chloride (98-107) mmol/L Carbon Dioxide (22-29) mmol/L Anion Gap (5-19) BUN (8-23) mg/dL Creatinine (0.7-1.2) mg/dL GFR Calculation (90-130) mL/min Glucose (65-115) mg/dL Calculated Osmolal ity (285-295) mOsm/k g Calcium (8.5-10.5) mg/dL Magnesium (1.7-2.3) mg/dL Total Bilirubin (0.15-1.2) mg/dL AST (0-40) U/L ALT (0-41) U/L Alkaline Phosphata se (40-130) IU/L Troponin T Baselin e 34 H (0-15) ng/mL Troponin T 120 Min anisha 30.34 H (0-15) ng/mL Delta Troponin T -3.66 L (0-10) ABS# NT-Pro-B Natriuret Pep (0-125) pg/mL Total Protein (6.6-8.7) g/dL Albumin (3.5-5.2) g/dL Globulin (1.3-4.6) g/dL Urine Color (Yellow) Urine Appearance (CLEAR) Urine pH (5-7) Ur Specific Gravit y (1.005-1.030) Urine Protein (Negative) Urine Glucose (UA) (Normal) Urine Ketones (Negative) Urine Blood (Negative) Urine Nitrate (Negative) Urine Bilirubin (NEGATIVE) Urine Urobilinogen (Negative) mg/dL Ur Leukocyte Missy ase (Negative) Urine RBC (0-2) /hpf Urine WBC (0-5) /hpf Ur Squamous Epith Cells (0-5) Urine Bacteria (NONE) EKG Data^: EKG 2: EKG Interpretation Date: 08/16/19 EKG interpretation time: 17:14 Prior EKG tracings: available for review Interpretation: sinus rate of 74, LAD, LVH with ST changes. unchanged from priors Discharge Plan Discharge Prescriptions: No Action Brilinta 90 mg tablet 90 mg PO BID RF: 0 hydralazine 25 mg tablet 25 mg PO TID RF: 0 isosorbide mononitrate 30 mg tablet extended release 24 hr 30 mg PO DAILY Qty: 90 RF: 2 albuterol sulfate 90 mcg/actuation HFA aerosol inhaler 2 inh INHALATION Q4H PRN (Reason: shortness of breath or wheezing) RF: 0 aspirin [Adult Aspirin Regimen] 81 mg tablet,delayed release (DR/EC) 81 mg PO DAILY RF: 0 carvedilol 12.5 mg tablet 12.5 mg PO BID RF: 0 diclofenac sodium 75 mg tablet,delayed release (DR/EC) 75 mg PO Q12H PRN (Reason: pain) Qty: 20 RF: 0 Wixela Inhub 250-50 mcg/dose Blister With Device 2 inh INHALATION BID PRN (Reason: UNKNOWN) RF: 0 Nitrostat 0.4 mg Tablet, Sublingual 0.4 mg SUBLINGUAL Q5M PRN (Reason: Chest Pain) RF: 0 furosemide 40 mg tablet 60 - 80 mg PO BID RF: 0 potassium chloride 20 mEq tablet extended release 20 - 40 meq PO DAILY RF: 0 Referrals: Jane Vega MD [Primary Care Provider] - Coding Level of Care Code ED Post [facility] Digger for Chg Fwd Exam Comprehensive
[2019-08-16 10:52] LABS: Basophils % 0.3 %; Eosinophils # 0.2 10^3/uL (0.0-0.8); Hemoglobin 12.3 g/dL (11.7-16.6); Lymphocytes # 1.4 10^3/uL (0.8-4.8); Lymphocytes % 21.1 %; Mean Corpuscular HGB Conc 31.5 g/dL (30.0-36.0); Mean Corpuscular Hemoglobin 30.7 pg (28.0-34.0); Mean Corpuscular Volume 97.3 fL (80-94); Mean Platelet Volume 11.4 fL (7.4-10.4); Monocytes # 0.6 10^3/uL (0.2-0.9); Monocytes % 9.3 %; Neutrophils # 4.4 10^3/uL (1.8-7.7); Neutrophils % 66.1 %; Nucleated Red Blood Cells % 0 %; Platelet Count 216 10^3/cmm (130-400); Red Blood Count 4.01 10^6/uL (4.1-5.3); Red Cell Distribution Width 16.2 % (12.1-15.1); White Blood Count 6.6 10^3/uL (4.0-10.0)
[2019-08-16 11:37] LABS: Add Urine Culture? No; Bacteria Urine TRACE; Bilirubin Urine Neg (NEGATIVE); Blood Urine Neg (Negative); Glucose Urine UA Norm (Normal); Ketones Urine Negative (Negative); Leukocyte Esterase Urine Negative (Negative); Nitrate Urine Negative (Negative); Protein Urine 1+ (Negative); Specific Gravity, Urine 1.005 (1.005-1.030); Squamous Epithelial Cell Urine RARE (0-5); Urine Appearance Clear (CLEAR); Urine Color Yellow (Yellow); Urobilinogen Urine Norm (Negative); pH Urine 6.5 (5-7)
[2019-08-16 11:44] LABS: Troponin(5th) Baseline 34 ng/mL (0-15)
[2019-08-16 11:51] LABS: Alanine Aminotransferase 15 U/L (0-41); Albumin Level 3.1 g/dL (3.5-5.2); Alkaline Phosphatase 105 IU/L (40-130); Aspartate Amino Transferase 26 U/L (0-40); Blood Urea Nitrogen 27 mg/dL (8-23); Calcium 8.9 mg/dL (8.5-10.5); Carbon Dioxide 20 mmol/L (22-29); Chloride 105 mmol/L (98-107); Globulin 3.5 g/dL (1.3-4.6); Glomerular Filtration Rate 31.6 mL/min (90-130); Glucose 103 mg/dL (65-115); Magnesium 1.9 mg/dL (1.7-2.3); NT Pro B Type Natriuretic Pept 11350 pg/mL (0-125); Osmolality Calculated 283 mOsm/kg (285-295); Sodium 138 mmol/L (136-145); Total Bilirubin 0.2 mg/dL (0.15-1.2); Total Protein 6.6 g/dL (6.6-8.7)
--- NOTE | 2019-08-16 12:42 | ECG_ITS ---
Measurements Intervals [place] Rate: 74 P: 45 [place]: 158 QRS: -42 QRSD: 93 T: 219 QT: 422 QTc: 470 SINUS RHYTHM POSSIBLE LEFT ATRIAL ENLARGEMENT [-0.1mV P WAVE IN V1/V2] LEFT AXIS DEVIATION [QRS AXIS < -30] LEFT VENTRICULAR HYPERTROPHY AND ST-T CHANGE [VOLTAGE CRITERIA PLUS ST/T ABNORMALITY] POSSIBLE SEPTAL MYOCARDIAL INFARCTION , OF INDETERMINATE AGE [30 ms Q WAVE IN V1/V2] Compared to ECG 08/16/2019 11:00:41 Myocardial infarct finding now present Sinus arrhythmia no longer present ST (T wave) deviation still present Electronically Signed On 08-17-2019 13:06:36 CDT by Wander Alvarado M.D. [email or web address]
[2019-08-16 14:04] LABS: Troponin 5 2HR 30.34 ng/mL (0-15)
[2019-08-16 14:27] LABS: Troponin 5 2HR Delta -3.66 ABS# (0-10)
[2019-08-16] MEDS: acetaminophen 500 mg Tablet 1000 MG PO (15:16)
--- NOTE | 2019-08-16 16:42 | ECG_ITS ---
Measurements Intervals [place] Rate: 85 P: 45 IN: 149 QRS: -42 QRSD: 92 T: 195 QT: 400 QTc: 476 SINUS RHYTHM WITH SINUS ARRHYTHMIA POSSIBLE LEFT ATRIAL ENLARGEMENT [-0.1mV P WAVE IN V1/V2] LEFT AXIS DEVIATION [QRS AXIS < -30] LEFT VENTRICULAR HYPERTROPHY AND ST-T CHANGE [VOLTAGE CRITERIA PLUS ST/T ABNORMALITY] Compared to ECG 07/20/2019 06:21:12 No significant changes Electronically Signed On 08-16-2019 11:49:51 CDT by Wander Alvarado M.D. [email or web address]
[2019-08-16 17:05] VITALS: BP 136/89; PULSE 73; RESP 20; O2SAT 100
--- NOTE | 2019-08-16 17:10 | PC.NURSE ---
EKG done at 1710 and shown to ER doctor
[2019-08-16 17:40] LABS: Troponin 5 6HR 32.29 ng/mL (0-15)
[2019-08-16 17:52] LABS: Troponin 5 6HR Delta -1.71 ng/L (0-12)
--- NOTE | 2019-08-16 17:57 | PM.HP ---
Providers/Chief Complaint Admitting Physician: Sourav Berrios MD Primary Care Provider: Jane Vega MD Chief Complaint: DIRECT ADMIT History of Present Illness Fredy Hammonds is a 64 year old male past medical history significant for noncompliance, combined ischemic and nonischemic cardiomyopathy, LV dysfunction which was improved from severely reduced to normal as per the last echo, CKD with baseline creatinine in between 2 and 3 for worsening of shortness of breath has been struggling with shortness of breath for the past few weeks. Despite of optimization of medicine and increasing dose of Lasix patient remains very short of breath. It is the reason he was asked to get admitted. Yesterday he saw me in my clinic he was not able to talk in sentences. He can barely walk 50-100 feet before he has to sit down. He does not have lower extremity edema he has mild abdominal girth. Today he has been admitted through emergency room. His BNP is around 11,000. Troponin is mildly elevated but most likely due to reduced clearance. Review of Systems Const: Denies: fever(s), chills or fatigue Eyes: Denies: change in vision or eye discomfort ENMT: Denies: throat pain, odynophagia, nasal discharge or nasal congestion Card: Reports: dyspnea on exertion and orthopnea; Denies: chest pain, palpitations, edema or swelling of feet/ankles Resp: Reports: dyspnea; Denies: productive cough or non-productive cough GI: Denies: abdominal pain, nausea, vomiting, diarrhea, constipation or hematochezia : Denies: flank pain, difficulty urinating, dysuria or hematuria Musc: Denies: neck pain, back pain or extremity swelling Skin/Breast: Denies: rash or new lesions Neuro: Denies: headache(s), numbness in extremities or weakness in extremities Medications/Allergies Home Medications Medication Instructions Recorded Confirmed Last Taken Type diclofenac sodium 75 mg PO Q12H PRN #20 tab 07/20/19 08/16/19 Unknown Rx hydralazine 25 mg tablet 25 mg PO TID 07/25/19 08/16/19 08/16/19 06:00 History isosorbide mononitrate 30 mg 30 mg PO DAILY #90 tab 07/25/19 08/16/19 08/16/19 Rx tablet,extended release 24 hr ticagrelor 90 mg tablet 90 mg PO BID 07/25/19 08/16/19 08/16/19 History albuterol sulfate 90 mcg/actuation 2 inh INHALATION Q4H PRN gm 08/13/19 08/16/19 Unknown History aerosol inhaler aspirin 81 mg tablet,delayed 81 mg PO DAILY 08/13/19 08/16/19 08/16/19 History release carvedilol 12.5 mg tablet 12.5 mg PO BID tab 08/13/19 08/16/19 08/16/19 History 2 TABS fluticasone propion-salmeterol 2 inh INHALATION BID PRN 08/16/19 08/16/19 Unknown History [Wixela Inhub] furosemide 60 - 80 mg PO BID 08/16/19 08/16/19 08/16/19 History 80 MG nitroglycerin [Nitrostat] 0.4 mg SUBLINGUAL Q5M PRN 08/16/19 08/16/19 Unknown History potassium chloride 20 - 40 meq PO DAILY 08/16/19 08/16/19 08/16/19 History 40 MEQ Allergies Allergy/AdvReac Type Severity Reaction Status Date / Time No Known Allergies Allergy Verified 08/13/19 10:14 PFSH Acute PFSH: Medical History Chronic kidney disease Combined systolic and diastolic cardiac dysfunction 12/06/2018: LVEF 56%, mild aortic stenosis, mild aortic regurgitation, severe pulmonary hypertension 70 mmHg History of pulmonary embolism Hyperlipidemia Hypertension Ischemic cardiomyopathy Mild aortic regurgitation Mild aortic stenosis 12/07/2018: Mean gradient 4.6 mmHg, aortic valve area 2.2 cm? Moderate to severe pulmonary hypertension 12/07/2018: 70 mmHg Presence of stent in LAD coronary artery Smoking Family History Family/Other Cancer Mother Dementia Diabetes Sister Diabetes Denies family history of CAD (coronary artery disease) Clotting disorder Hyperlipidemia Psychiatric illness Chronic kidney disease (CKD) Suicide Anesthesia complication Bleeding disorder Family history of premature coronary artery disease Lung disease Hypertension Stroke Social History Smoking and tobacco status: current every day smoker cigarettes Years cigarettes smoked: 20 Vitals/I&O/Wt Last Vital Signs Pulse 73 08/16/19 17:05 Resp 20 H 08/16/19 17:05 BP 136/89 08/16/19 17:05 Pulse Ox 100 08/16/19 17:05 Weight last 48 hrs Weight 180 lb Physical Exam Narrative: EXAM NARRATIVE: GENERAL: Patient is alert, awake and oriented x3 not in distress but use deep breaths from time to time and cannot talk in sentences NECK: No jugular vein distension. HEENT: No cyanosis. No icterus. No pallor. HEART: Regular S1 and S2. No murmur, rub or gallop. LUNGS: Clear to auscultate bilaterally. ABDOMEN: Soft, nontender and nondistended. Positive bowel sounds. No guarding, rebound or tenderness. CENTRAL NERVOUS SYSTEM: Grossly nonfocal. EXTREMITIES: Lower extremities without edema bilaterally. Data : 08/16/19 10:44 08/16/19 11:14 A&P Assessment and plan (1) Respiratory failure: Could be multifactorial including COPD CHF pulmonary hypertension and pulmonary embolism. By physical examination patient lung sounds dry, abdominal girth has slightly increased which could be due to ascites. I believe he has worsening of pulmonary hypertension. Pulmonary embolism also need to be considered. Unfortunately due to worsening of renal function we cannot ask for CTA. I will get venous study for DVT. I will anticoagulate him anyways. Further plan will be advised as per progress of the patient Status: Acute Qualifiers: Respiratory failure complication: hypoxia Qualified Code(s): J96.01 - Acute respiratory failure with hypoxia (2) Moderate to severe pulmonary hypertension: We will start patient on oxygen. Will rule out pulmonary embolism. We will anticoagulate him. Echocardiogram will be obtained to assess LV and RV along with pulmonary pressures. Further plan will be advised Status: Chronic (3) Combined systolic and diastolic cardiac dysfunction: Patient does not appear to be wet I will hold Lasix for now Status: Chronic (4) Chronic kidney disease: Patient chronic kidney disease with baseline creatinine in between 2 and 2.7. Continue to monitor. Status: Acute Qualifiers: Chronic kidney disease stage: stage 3 (moderate) Qualified Code(s): N18.3 - Chronic kidney disease, stage 3 (moderate) (5) Ischemic cardiomyopathy: Appears to be stable from a coronary disease perspective. Continue medicine Status: Acute (6) Hypertension: Well-controlled continue medicine Status: Acute Qualifiers: Hypertension type: essential hypertension Qualified Code(s): I10 - Essential (primary) hypertension Attestations Medical Necessity Statement*: Patient require continuation hospitalization for above defined care. Coding Level of Care Code New Pt Acute Prosthetic Technician for Chg Fwd Patient Type New History Comprehensive Exam Comprehensive Medical Decision Making High Complexity Diagnoses Respiratory failure J96.01 Respiratory failure complication: hypoxia Moderate to severe pulmonary hypertension I27.20 Combined systolic and diastolic cardiac dysfunction I51.89 Chronic kidney disease N18.3 Chronic kidney disease stage: stage 3 (moderate) Ischemic cardiomyopathy I25.5 Hypertension I10 Hypertension type: essential hypertension
[2019-08-16 20:40] VITALS: BP 139/107; PULSE 73; RESP 22; TEMP 36.6; O2SAT 98
[2019-08-16] MEDS: enoxaparin 100 mg/mL Syringe 90 MG SUBCUT (20:42)
[2019-08-16] MEDS: hyDRALAzine 25 mg Tablet PO (20:43)
[2019-08-16 21:00] VITALS: RESP 22
[2019-08-16] MEDS: temazepam 15 mg Capsule PO (21:13)
[2019-08-17] VITALS (15 sets, daily range): BP systolic 118–160; BP diastolic 81–107; PULSE 69–94; RESP 11–30; TEMP 36.4–36.8; O2SAT 96–100
[2019-08-17] MEDS: albuterol 8 gm MDI 1 PUFF INHALATION (08:36)
[2019-08-17] MEDS: aspirin 81 mg EC Tablet PO (09:08)
[2019-08-17] MEDS: carvedilol 12.5 mg Tablet PO ×2 (09:08→18:17)
[2019-08-17] MEDS: isosorbide mononitrate ER 30 mg Tablet PO (09:08)
[2019-08-17] MEDS: hyDRALAzine 25 mg Tablet PO ×3 (09:08→20:21)
--- NOTE | 2019-08-17 10:44 | PC.CHAP ---
Pastoral Care Encounter/Spiritual Assessment Type of Contact [] Declined senior biostatistician/group leader visit [] Patient/Family/Request visit [] Outpatient visit [] Follow-up visit [] Physician referral [] Code/Alert [x] Routine visit [] Staff referral [] Actively dying [] Patient sleeping [] Family support [] [] Out of room [] Palliative care [] [] Receiving care in room [] Pre-surgical visit [] Trauma [] Long length of stay [] ICU visit [] Other: Relational/Emotional Strength [x] Patient feels connected with others/family/visitors/staff [] Distress [] Loneliness/isolation [] Abandonment Spirituality of Patient [x] Person of Shamika [x] Attends Restoration of their Shamika [x] Believes in Prayer [] Reads Bible or Yarsani materials [] There are Spiritual issues to be addressed Supervisor Wrapping Room Interventions [x] Prayer [x] Active listening [x] Non-anxious presence [] Spiritual/emotional support [] Crisis/trauma care [] Spiritual counseling [] Bereavement support [] Provided bereavement packet [] Provided Bible/devotional materials [] Provided toy/stuffed animal, coloring book to patient or family member [] Provided Communion [] Anointing/Antelope [] Salvation [x] Completed spiritual assessment [] Other: Impact on Illness or Injury [] Angry [] Fearful [] Anxious [] Often cries [] Exhaustion [] Unable to work [] Unable to attend buddhism [] Unable to walk/stand [] Unable to read [] Unable to drive [] Unable to eat/drink [] Unable to sleep [] Unable to be with family [] Patient intubated [] Other: Summary 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 Pt ready to go home. Supervisor Wrapping Room Urmila Hartley Time spent with patient 7 minutes
--- NOTE | 2019-08-17 14:35 | PM.CONSULT ---
Providers/Reason For Consult Consulting Physican/Specialty*: Mike Calvillo MD, hospitalist Reason for Consult*: Abnormal renal ultrasound, shortness of breath Attending Physician: Sourav Berrios MD Primary Care Provider: Jane Vega MD History of Present Illness History of Present Illness Fredy Hammonds is a 64 year old male admitted by cardiology for congestive heart failure, increasing shortness of breath. Patient reports significant gradual decline with weakness and increasing shortness of breath. He reports he gets short of breath when he lays down, when he does anything exertionally. He reports even gets short of breath talking. He has had no significant fever or cough. He reports his legs have felt slightly more swollen lately, and his abdomen swollen as well. He has been improving somewhat with the treatment here. He has had some anxiety. Review of Systems General: Reports: 10 or more systems reviewed and unremarkable except in HPI and below Const: Reports: fatigue and malaise; Denies: fever(s) or chills Eyes: Denies: change in vision ENMT: Denies: throat pain Card: Reports: orthopnea; Denies: chest pain Resp: Reports: dyspnea; Denies: non-productive cough GI: Reports: other (Bloating); Denies: abdominal pain : Denies: flank pain Musc: Denies: neck pain Skin/Breast: Denies: rash Neuro: Denies: headache(s) Psych: Reports: anxiety; Denies: depression Endo: Denies: polyuria Kameron/Lymph: Denies: easy bruising All/Imm: Denies: urticaria Meds/Allergies Home Medications and Allergies Home Medications Medication Instructions Recorded Confirmed Last Taken Type diclofenac sodium 75 mg PO Q12H PRN #20 tab 07/20/19 08/16/19 Unknown Rx hydralazine 25 mg tablet 25 mg PO TID 07/25/19 08/16/19 08/16/19 06:00 History isosorbide mononitrate 30 mg 30 mg PO DAILY #90 tab 07/25/19 08/16/19 08/16/19 Rx tablet,extended release 24 hr ticagrelor 90 mg tablet 90 mg PO BID 07/25/19 08/16/19 08/16/19 History albuterol sulfate 90 mcg/actuation 2 inh INHALATION Q4H PRN gm 08/13/19 08/16/19 Unknown History aerosol inhaler aspirin 81 mg tablet,delayed 81 mg PO DAILY 08/13/19 08/16/19 08/16/19 History release carvedilol 12.5 mg tablet 12.5 mg PO BID tab 08/13/19 08/16/19 08/16/19 History 2 TABS fluticasone propion-salmeterol 2 inh INHALATION BID PRN 08/16/19 08/16/19 Unknown History [Wixela Inhub] furosemide 60 - 80 mg PO BID 08/16/19 08/16/19 08/16/19 History 80 MG nitroglycerin [Nitrostat] 0.4 mg SUBLINGUAL Q5M PRN 08/16/19 08/16/19 Unknown History potassium chloride 20 - 40 meq PO DAILY 08/16/19 08/16/19 08/16/19 History 40 MEQ Allergies Allergy/AdvReac Type Severity Reaction Status Date / Time No Known Allergies Allergy Verified 08/13/19 10:14 Current Medications Current Medications Generic Name Dose Route Start Last Admin Trade Name Freq PRN Reason Stop Dose Admin Albuterol Sulfate 1 puff 08/16/19 18:11 08/17/19 08:36 Ventolin INHALATION 1 puff Q4H PRN Administration shortness of breath or wheezing Aspirin 81 mg 08/17/19 09:00 08/17/19 09:08 Aspirin Ec PO 81 mg DAILY VENUS Administration Carvedilol 12.5 mg 08/17/19 09:00 08/17/19 09:08 Coreg PO 12.5 mg BID VENUS Administration Enoxaparin Sodium 90 mg 08/16/19 18:45 08/16/19 20:42 Lovenox SUBCUT 90 mg Q24H VENUS Administration Hydralazine HCl 25 mg 08/16/19 21:00 08/17/19 09:08 Apresoline PO 25 mg TID VENUS Administration Isosorbide Mononitrate 30 mg 08/17/19 09:00 08/17/19 09:08 Imdur PO 30 mg DAILY VENUS Administration Fluticasone/Salmeterol 1 puff 08/16/19 18:11 08/17/19 08:36 Advair Diskus 250-50 INHALATION 1 puff BID.RESPIRATORY PRN Administration UNKNOWN Temazepam 15 mg 08/16/19 20:48 05/14/20 21:13 Restoril PO 15 mg BEDTIME PRN Administration INSOMNIA PFSH Acute PFSH: Medical History Chronic kidney disease Combined systolic and diastolic cardiac dysfunction 12/06/2018: LVEF 56%, mild aortic stenosis, mild aortic regurgitation, severe pulmonary hypertension 70 mmHg History of pulmonary embolism Hyperlipidemia Hypertension Ischemic cardiomyopathy Mild aortic regurgitation Mild aortic stenosis 12/07/2018: Mean gradient 4.6 mmHg, aortic valve area 2.2 cm? Moderate to severe pulmonary hypertension 12/07/2018: 70 mmHg Presence of stent in LAD coronary artery Smoking Family History Family/Other Cancer Mother Dementia Diabetes Sister Diabetes Denies family history of CAD (coronary artery disease) Clotting disorder Hyperlipidemia Psychiatric illness Chronic kidney disease (CKD) Suicide Anesthesia complication Bleeding disorder Family history of premature coronary artery disease Lung disease Hypertension Stroke Social History (Updated 08/17/19 @ 14:45 by Mike Calvillo MD) Smoking and tobacco status: current every day smoker cigarettes Years cigarettes smoked: 20 Alcohol intake: current Alcohol intake frequency: few times a month Substance/Drug Use: never Vitals/I&O/Wt Last Vital Signs Temp 97.6 F 08/17/19 12:00 Pulse 71 08/17/19 12:00 Resp 16 08/17/19 12:00 BP 134/84 08/17/19 12:00 Pulse Ox 97 08/17/19 12:00 08/16/19 08/17/19 08/17/19 22:59 06:59 14:59 Intake Total 480 / 480 100 / 580 360 / 360 Output Total 250 / 250 300 / 300 Balance 480 / 480 -150 / 330 60 / 60 Weight last 48 hrs Weight 81.919 kg Weight 81.647 kg Physical Exam Narrative: EXAM NARRATIVE: General exam demonstrates an -Turkmen male, speaking full sentences to me, in no apparent distress HEENT: Pupils equally round. Oropharynx clear. Neck is supple no lymphadenopathy or thyromegaly Cardiovascular regular rate and rhythm, heart sounds distant Lungs clear no wheezing or crackles Abdomen is soft, positive bowel sounds. No obvious organomegaly was deferred Extremities no cyanosis clubbing or edema Data Labs: Other Labs: Reviewed previous echocardiogram from December. This falls out of normal from his previous and may not be accurate. I understand he has had an echocardiogram now that has an EF around 35 to 40% and has moderate pulmonary hypertension. Venous duplex was negative Chest x-ray suggestive of mild emphysema Renal ultrasound with abnormal left kidney, differential broad LFTs normal BNP elevated markedly Troponin slightly elevated. A&P Assessment and plan (1) Dyspnea: Etiology is multifactorial. Certainly he will have some complaints of dyspnea with his combined heart failure. Repeat echocardiogram this visit is pending but from my understanding his EF is around 35 to 40% with moderate pulmonary hypertension. I do not think he has any element of COPD exacerbation currently, and he does not endorse a history of COPD although he has suggestion of emphysema on chest x-ray. Anxiety may also be playing a role and I discussed with him to visit with his primary care provider on follow-up regarding this. Secondary to the concomitant complaint of fatigue a TSH will be checked. Status: Acute (2) Moderate pulmonary arterial systolic hypertension: Repeat echocardiogram official reading pending. If he has severe pulmonary hypertension pulmonary referral could be considered. His bedside exam does not suggest severe COPD. Status: Acute (3) Combined systolic and diastolic cardiac dysfunction: Defer to cardiology. Repeat echocardiogram pending Status: Chronic (4) Anxiety: Consider outpatient follow-up with primary care provider Status: Acute (5) Abnormal ultrasound of kidney: Abnormal kidney imaging has appeared before in this patient on previous CT scans. Secondary to a concern of change on this ultrasound, I would refer him to urology upon follow-up. I do not think this needs to be done acutely. Status: Acute Additional A&P Information Chronic kidney disease stage III Hypertension Multiple other medical problems as outlined in his past medical history Lovenox for DVT prophylaxis Consult Attestations Medical Necessity Statement: As per primary Coding Level of Care Code Acute Fruit Thinner Machine Operator for Ramana Pillai Diagnoses Dyspnea R06.00 Moderate pulmonary arterial systolic hypertension I27.21 Combined systolic and diastolic cardiac dysfunction I51.89 Anxiety F41.9 Abnormal ultrasound of kidney R93.429
[2019-08-17 15:43] LABS: Thyroid Stimulating Hormone 1.07 uIU/mL (0.27-4.20)
--- NOTE | 2019-08-17 18:15 | US_ITS ---
WS: [id number] Complete ABDOMINAL ULTRASOUND HISTORY: Ascites COMPARISON: 10/02/2018 Liver: 18.0 cm in length. Slightly enlarged liver. No mass or hepatic dilatation. Gallbladder: Gallbladder is contracted with diffuse wall thickening. No pericholecystic fluid. No sto jazmine identified. Gallbladder wall thickness: 0.2 cm. Pancreas: Normal size and echogenicity. CBD: 0.3 cm. Right kidney: 10.9 cm x 5.5 cm x 4.5 cm. Increased echogenicity throughout the kidney. Cortical cyst lower pole with a maximum diameter of 2.3 cm. No hydronephrosis or solid mass. Left kidney: 11.0 cm x 5.9 cm x 4.5 cm. LEFT kidney is very poorly visualized. Significant loss of t he cortical medullary differentiation. Kidney was similar to the prior study from 10/02/2018. Small cor tical cysts are also evident. Spleen: Normal size and echogenicity. Abdominal aorta and IVC are within normal limits. No ascites. US/US abdomen complete* [id number] IMPRESSION: 1. Markedly abnormal LEFT kidney. Probably on the basis of chronic medical matt al disease. Infiltrating neoplasm not excluded as there is significant loss of the cortical medullary differentiation. If renal function will permit three-pha se renal CT protocol is recommended. If not MRI would provide additional inform ation. 2. Contracted gallbladder may be due to a nonfasting state. 3. Small bilateral renal cysts.
[2019-08-17] MEDS: enoxaparin 100 mg/mL Syringe 90 MG SUBCUT (18:17)
--- NOTE | 2019-08-17 18:30 | P.PN_ITS ---
Subjective Subjective: Interval history: Feeling slightly better Medications: Reviewed: Yes Vitals/I&O/Wt Last Vital Signs Temp 97.5 F L 08/17/19 16:00 Pulse 72 08/17/19 16:00 Resp 17 08/17/19 16:00 BP 137/81 08/17/19 16:00 Pulse Ox 98 08/17/19 16:00 08/17/19 08/17/19 08/17/19 06:59 14:59 22:59 Intake Total 100 / 580 360 / 360 Output Total 250 / 250 300 / 300 Balance -150 / 330 60 / 60 Weight last 48 hrs Weight 180 lb 9.6 oz Weight 180 lb Physical Exam Narrative: EXAM NARRATIVE: GENERAL: Patient is alert, awake and oriented x3 not in distress but occasionally uses deep breaths from time to time and still cannot talk in sentences NECK: No jugular vein distension. HEENT: No cyanosis. No icterus. No pallor. HEART: Regular S1 and S2. No murmur, rub or gallop. LUNGS: Clear to auscultate bilaterally. ABDOMEN: Soft, nontender and nondistended. Positive bowel sounds. No guarding, rebound or tenderness. CENTRAL NERVOUS SYSTEM: Grossly nonfocal. EXTREMITIES: Lower extremities without edema bilaterally. Data : 08/16/19 10:44 08/16/19 11:14 A&P Assessment and plan (1) Respiratory failure: Patient does not appear to be in decompensated heart failure. Pulmonary hypertension is moderate without dilatation of RV. DVT was negative by ultrasound abdominal ultrasound did not show ascites but left renal mass/neoplasm for which medicine was consulted he will be following up with Dr. Avlia as an outpatient. I have discontinue Brilinta it is possible that patient may be short of breath because A. fib we will see him next 24 hours Status: Acute Qualifiers: Respiratory failure complication: hypoxia Qualified Code(s): J96.01 - Acute respiratory failure with hypoxia (2) Moderate to severe pulmonary hypertension: Patient appears to have moderate pulmonary hypertension which is stable by echocardiogram. If patient continues to have unexplained shortness of breath we may will proceed with right heart catheterization Status: Chronic (3) Combined systolic and diastolic cardiac dysfunction: Continue to hold Lasix appeared to be dry Status: Chronic (4) Chronic kidney disease: Continue to monitor renal function patient has chronic kidney disease Status: Acute Qualifiers: Chronic kidney disease stage: stage 3 (moderate) Qualified Code(s): N18.3 - Chronic kidney disease, stage 3 (moderate) (5) Ischemic cardiomyopathy: Appears to be stable from a coronary disease perspective. Continue medicine Status: Acute (6) Hypertension: Well-controlled continue medicine Status: Acute Qualifiers: Hypertension type: essential hypertension Qualified Code(s): I10 - Essential (primary) hypertension Attestations Medical Necessity Statement*: Patient require continuation hospitalization for above defined care Coding Level of Care Code Established Pt Acute [place] Aide for Chg Fwd Patient Type Established History Expanded Problem Focused Exam Expanded Problem Focused Medical Decision Making Moderate Complexity Diagnoses Respiratory failure J96.01 Respiratory failure complication: hypoxia Moderate to severe pulmonary hypertension I27.20 Combined systolic and diastolic cardiac dysfunction I51.89 Chronic kidney disease N18.3 Chronic kidney disease stage: stage 3 (moderate) Ischemic cardiomyopathy I25.5 Hypertension I10 Hypertension type: essential hypertension
--- NOTE | 2019-08-17 18:38 | USCV_ITS ---
Fredy Hammonds Age: 64 Gender: M : 1955 Exam Date: 08/17/2019 07:00 Ordering Phys: Sourav Berrios MD ([email or web address]) Technologist: Cleopatra Colon [place] [facility] [place]: CHF BP: / HR: Rhythm: Sinus Technical Quality: Good MEASUREMENTS (Male / Female) Normal Values 2D ECHO LV Diastolic Diameter PLAX 5.0 cm 4.2 - 5.9 / 3.9 - 5.3 cm LV Systolic Diameter PLAX 4.1 cm LV Chamber Size 4.6 cm IVS Diastolic Thickness 1.6 cm 0.6 - 1.0 / 0.6 - 0.9 cm IVS Systolic Thickness 1.2 cm LVPW Diastolic Thickness 2.3 cm 0.6 - 1.0 / 0.6 - 0.9 cm LVPW Systolic Thickness 2.5 cm RV Chamber Size 3.2 cm LVOT Diameter 2.1 cm LV Ejection Fraction 2D Teich 36.1 % LV Ejection Fraction MOD 2C 37.9 % LV Ejection Fraction 2C AL 38.4 % LA Diameter 4.9 cm LA Width 3.6 cm LA Height 4.7 cm RA Width 3.5 cm RA Height 3.9 cm Aorta at Sinotubular Diameter 2.7 cm M-MODE LV Diastolic Diameter MM 6.7 cm 4.2 - 5.9 / 3.9 - 5.3 cm LV Systolic Diameter MM 5.4 cm LV Ejection Fraction MM Teich 38.6 % IVS Diastolic Thickness MM 1.0 cm 0.6 - 1.0 / 0.6 - 0.9 cm IVS Systolic Thickness MM 1.2 cm LVPW Diastolic Thickness MM 1.1 cm 0.6 - 1.0 / 0.6 - 0.9 cm LVPW Systolic Thickness MM 1.1 cm Aortic Annulus Diameter 3.2 cm LA Ao Ratio MM 1.5 MV E Point Septal Separation 2.1 cm DOPPLER AV Peak Velocity 119.0 cm/s LVOT Peak Velocity 116.0 cm/s AV Area Cont Eq vti 4.0 cm squared AV Area Cont Eq pk 3.2 cm squared MV Area PHT 4.3 cm squared Mitral E to A Ratio 2.0 MV E' Velocity 7.0 cm/s Mitral E to MV E' Ratio 11.6 Mitral E to LV E' Lateral Ratio 10.4 Mitral E to LV E' Septal Ratio 13.4 TR Peak Velocity 321.0 cm/s TR Peak Gradient 41.3 mmHg TV Peak E Velocity 44.0 cm/s Right Atrial Pressure 3.0 mmHg Pulmonary Artery Systolic Pressu 44.2 mmHg PV Peak Velocity 55.0 cm/s RV Acceleration Time 0.1 s RV Ejection Time 0.3 s RV AcT/ET 0.5 FINDINGS Left Ventricle Moderately increased left ventricular cavity size. Severely decreased left ventricular systolic function. Global left ventricular hypokinesis. Left ventricular ejection fraction is estimated at 38 %. Moderately decreased left ventricular systolic function. Grade II/IV diastolic dysfunction, moderately elevated filling pressures. Right Ventricle The right ventricle is normal in size and function. RVSP could not be calculated due to incomplete tricuspid regurgitation velocity profile. Right Atrium The right atrium is normal in size. Left Atrium The left atrium is normal in size. Mitral Valve Moderately thickened mitral valve. Mitral annular calcification. No mitral valve stenosis. Trace mitral valve regurgitation. Aortic Valve Moderate aortic valve calcification. No aortic valve stenosis. Mild aortic valve regurgitation. Tricuspid Valve Structurally normal tricuspid valve without significant stenosis or regurgitation. Pulmonary artery systolic pressure is normal. Pulmonic Valve Structurally normal pulmonic valve without significant stenosis. There is no pulmonic regurgitation. Pericardium Normal pericardium without effusion. Aorta Normal ascending aorta dimension. CONCLUSIONS 1-Moderately increased left ventricular cavity size. Severely decreased left ventricular systolic function. Global left ventricular hypokinesis. Left ventricular ejection fraction is estimated at 38 %. Moderately decreased left ventricular systolic function. Grade II/IV diastolic dysfunction, moderately elevated filling pressures. 2-The right ventricle is normal in size and function. RVSP could not be calculated due to incomplete tricuspid regurgitation velocity profile. 3-Moderately thickened mitral valve. Mitral annular calcification. No mitral valve stenosis. Trace mitral valve regurgitation. 4-Moderate aortic valve calcification. No aortic valve stenosis. Mild aortic valve regurgitation. 5-There is no pericardial effusion. 6-When compared to the prior echocardiogram dated 12/06/2018 there appeared to be moderate reduction in the LV function of 38% from mildly reduced 50% now Sourav Berrios MD (Electronically Signed) Final Date: 17 Aug 2019 19:45 S
--- NOTE | 2019-08-17 18:43 | USCV_ITS ---
Fredy Hammonds Age: 64 Gender: M : 1955 Exam Date: 08/17/2019 07:14 Ordering Phys: Sourav Berrios MD ([email or web address]) Technologist: Cleopatra Colon Exam Location: [facility] [place] Indication: DVT HISTORY: DVT. PROCEDURES: Venous duplex imaging was performed in only the left lower extremity. The following venous structures were evaluated: common femoral vein, profunda vein, proximal portion of the greater saphenous vein, superficial femoral vein, and the popliteal vein. In addition, the posterior tibial and peroneal trunk were evaluated. Serial compression, augmentation maneuvers, and spectral Doppler flow evaluation were performed. FINDINGS: Normal 2-D Doppler and augmentation and compressibility throughout the lower extremity venous structures. Additional imaging through the proximal calf veins also reveals no thrombus. Limited evaluation of the greater saphenous vein is patent with no thrombus. CONCLUSIONS No DVT left lower extremity. Dr. Reyna Victoria DO (Electronically Signed) Final Date: 17 Aug 2019 10:47 S
[2019-08-17] MEDS: temazepam 15 mg Capsule PO (20:21)
[2019-08-18 04:00] VITALS: BP 129/79; PULSE 76; RESP 18; TEMP 36.7; O2SAT 100
[2019-08-18 08:00] VITALS: BP 146/95; PULSE 77; RESP 21; TEMP 36.8; O2SAT 99
[2019-08-18] MEDS: hyDRALAzine 25 mg Tablet PO (08:15)
[2019-08-18] MEDS: carvedilol 12.5 mg Tablet PO (08:15)
[2019-08-18] MEDS: aspirin 81 mg EC Tablet PO (08:15)
[2019-08-18] MEDS: isosorbide mononitrate ER 30 mg Tablet PO (08:15)
[2019-08-18 08:31] VITALS: PULSE 76; RESP 16; O2SAT 98
[2019-08-18] MEDS: albuterol 8 gm MDI 1 PUFF INHALATION (08:31)
[2019-08-18 11:13] VITALS: BP 146/95; PULSE 76; RESP 16; TEMP 36.8; O2SAT 98
[2019-08-18] MEDS: clopidogrel 300 mg Tablet 600 MG PO (11:20)
--- NOTE | 2019-08-18 12:03 | P.PN_ITS ---
Subjective Subjective: Interval history: Fredy reported his breathing was better. He was able to lie flat. He is able to talk. Medications: Reviewed: Yes Vitals/I&O/Wt Last Vital Signs Temp 98.2 F 08/18/19 11:13 Pulse 76 08/18/19 11:13 Resp 16 08/18/19 11:13 BP 146/95 08/18/19 11:13 Pulse Ox 98 08/18/19 11:13 08/17/19 08/18/19 08/18/19 22:59 06:59 14:59 Intake Total 360 / 360 Balance 360 / 360 Weight last 48 hrs Weight 80.513 kg Weight 81.919 kg Physical Exam Narrative: EXAM NARRATIVE: General exam no apparent distress Cardiovascular regular rate and rhythm without murmur Lungs clear Abdomen is soft with positive bowel sounds Extremities no cyanosis clubbing. No significant edema. Data : 08/16/19 10:44 08/16/19 11:14 A&P Assessment and plan (1) Dyspnea: Etiology is multifactorial. Certainly he will have some complaints of dyspnea with his combined heart failure. Repeat echocardiogram this visit is pending but from my understanding his EF is around 35 to 40% with moderate pulmonary hypertension. I do not think he has any element of COPD exacerbation currently, and he does not endorse a history of COPD although he has suggestion of emphysema on chest x-ray. Anxiety may also be playing a role and I discussed with him to visit with his primary care provider on follow-up regarding this. Secondary to the concomitant complaint of fatigue TSH was checked and normal. He was encouraged to follow-up with his primary care provider regarding anxiety. Status: Acute (2) Moderate pulmonary arterial systolic hypertension: Repeat echocardiogram suggested only moderate pulmonary hypertension. His bedside exam does not suggest severe COPD. Status: Acute (3) Combined systolic and diastolic cardiac dysfunction: Defer to cardiology. Repeat echocardiogram pending Status: Chronic (4) Anxiety: Consider outpatient follow-up with primary care provider Status: Acute (5) Abnormal ultrasound of kidney: Abnormal kidney imaging has appeared before in this patient on previous CT scans. Secondary to a concern of change on this ultrasound, I would refer him to urology upon follow-up. I do not think this needs to be done acutely. I have entered this in his discharge orders. Status: Acute Additional A&P Information Chronic kidney disease stage III Hypertension Multiple other medical problems as outlined in his past medical history Britanyx for DVT prophylaxis Attestations Medical Necessity Statement*: Per primary Coding Level of Care Code Acute Pediatric Clinical Nurse Specialist for Ramana Fwd Diagnoses Dyspnea R06.00 Moderate pulmonary arterial systolic hypertension I27.21 Combined systolic and diastolic cardiac dysfunction I51.89 Anxiety F41.9 Abnormal ultrasound of kidney R93.429
[2019-08-18 12:23] LABS: Alanine Aminotransferase 20 U/L (0-41); Albumin Level 3.1 g/dL (3.5-5.2); Alkaline Phosphatase 106 IU/L (40-130); Anion Gap 14.7 (5-19); Aspartate Amino Transferase 45 U/L (0-40); Blood Urea Nitrogen 39 mg/dL (8-23); Carbon Dioxide 24 mmol/L (22-29); Chloride 105 mmol/L (98-107); Glomerular Filtration Rate 38.7 mL/min (90-130); Glucose 89 mg/dL (65-115); NT Pro B Type Natriuretic Pept 3136 pg/mL (0-125); Osmolality Calculated 285 mOsm/kg (285-295); Potassium 4.7 mmol/L (3.5-5.1); Sodium 139 mmol/L (136-145); Total Bilirubin 0.2 mg/dL (0.15-1.2); Total Protein 7.1 g/dL (6.6-8.7)
--- NOTE | 2019-08-18 14:45 | PC.RESP ---
Smoking Cessation and Pulmonary Rehab information sent to patient with a schedule of classes.
--- NOTE | 2019-08-18 17:04 | PM.DCS ---
Discharge Providers Date of Admission: 08/16/19 15:10 Date of Discharge: August 18, 2019 Attending Provider at Admission: Sourav Berrios MD Attending Provider at Discharge: Sourav Berrios MD Primary Care Provider: Jane Vega MD Diagnoses at Discharge Discharge Diagnosis (1) Dyspnea: Status: Acute (2) Moderate pulmonary arterial systolic hypertension: Status: Acute (3) Combined systolic and diastolic cardiac dysfunction: Status: Chronic Problem details: 12/06/2018: LVEF 56%, mild aortic stenosis, mild aortic regurgitation, severe pulmonary hypertension 70 mmHg (4) Anxiety: Status: Acute (5) Abnormal ultrasound of kidney: Status: Acute Reason for Visit Reason for Visit: Reason For Visit: DIRECT ADMIT Hospital Course Discharge Summary: 64-year-old male past medical history significant for both ischemic and nonischemic cardiomyopathy, noncompliant, history of coronary disease status post stent, systolic heart failure for worsening of shortness of breath despite optimization of medicine was directly admitted. He was ruled out for pulmonary embolism by physical examination he was in compensated state of heart failure. DVT was also ruled out. During investigation he was noted to have a renal mass for which he is referred to Dr. Avila as an outpatient. Upon admission Brilinta was stopped as it is known to cause shortness of breath. Over next 2 days patient improved a lot and almost back to his normal. It is therefore thought that Brilinta was causing his shortness of breath. Patient has been switched to Plavix. He is being discharged home. He has been advised regarding compliance. He has been advised to follow-up in cardiology clinic with Grazyna Florian in 7 to 10 days. Physical Exam Narrative: EXAM NARRATIVE: GENERAL: Patient is alert, awake and oriented x3. NECK: No jugular vein distension. HEENT: No cyanosis. No icterus. No pallor. HEART: Regular S1 and S2. No murmur, rub or gallop. LUNGS: Clear to auscultate bilaterally. ABDOMEN: Soft, nontender and nondistended. Positive bowel sounds. No guarding, rebound or tenderness. CENTRAL NERVOUS SYSTEM: Grossly nonfocal. EXTREMITIES: Lower extremities without edema bilaterally. Discharge Data Data Completed and Pending: Completed Studies During Hospitalization Category Date Time Status XR chest 1V sandra ble [id number] Stat Exams 08/16/19 10:42 Completed CV echo complete* [id number] Routine Ultrasound 08/17/19 18:38 [place] [id number] Routin e Ultrasound 08/17/19 18:43 Completed US abdomen comple te* [id number] Routine Ultrasound 08/17/19 18:15 Completed Labs from last 24 hours 08/18/19 11:40 Sodium 139 Potassium 4.7 Chloride 105 Carbon Dioxide 24 Anion Gap 14.7 BUN 39 H Creatinine 2.1 H GFR Calculation 38.7 L Glucose 89 Calculated Osmolal ity 285 Calcium 9.0 Total Bilirubin 0.2 AST 45 H ALT 20 Alkaline Phosphata se 106 NT-Pro-B Natriuret Pep 3136 H Total Protein 7.1 Albumin 3.1 L Globulin 4.0 Vitals: Last Vital Signs Temp 98.2 F 08/18/19 11:13 Pulse 76 08/18/19 11:13 Resp 16 08/18/19 11:13 BP 146/95 08/18/19 11:13 Pulse Ox 98 08/18/19 11:13 Discharge Plan Discharge Patient Disposition: Home, Self-Care Condition: Stable Prescriptions: New clopidogrel 75 mg tablet 75 mg PO DAILY Qty: 90 RF: 4 atorvastatin 40 mg tablet 40 mg PO DAILY Qty: 30 RF: 4 Continued hydralazine 25 mg tablet 25 mg PO TID RF: 0 isosorbide mononitrate 30 mg tablet extended release 24 hr 30 mg PO DAILY Qty: 90 RF: 2 albuterol sulfate 90 mcg/actuation HFA aerosol inhaler 2 inh INHALATION Q4H PRN (Reason: shortness of breath or wheezing) RF: 0 aspirin [Adult Aspirin Regimen] 81 mg tablet,delayed release (DR/EC) 81 mg PO DAILY RF: 0 carvedilol 12.5 mg tablet 12.5 mg PO BID RF: 0 Wixela Inhub 250-50 mcg/dose Blister With Device 2 inh INHALATION BID PRN (Reason: UNKNOWN) RF: 0 Nitrostat 0.4 mg Tablet, Sublingual 0.4 mg SUBLINGUAL Q5M PRN (Reason: Chest Pain) RF: 0 furosemide 40 mg tablet 60 - 80 mg PO BID RF: 0 potassium chloride 20 mEq tablet extended release 20 - 40 meq PO DAILY RF: 0 Discontinued Brilinta 90 mg tablet 90 mg PO BID RF: 0 diclofenac sodium 75 mg tablet,delayed release (DR/EC) 75 mg PO Q12H PRN (Reason: pain) Qty: 20 RF: 0 Discharge Orders: Discharge Order (Routine); Ordered 08/18/19 Ordered By: Sourav Berrios Referrals: Jane Vega MD [Primary Care Provider] - 4-7 days (On Tuesday, Please call Dr. Lara's office to schedule a hospital followup to be seen in the next 4 to 7 days. Thank you) Mariano Avila MD [Physician] - 2 weeks (Due to an Abnormal renal US, On Tuesday, Please call Dr. Avila at [facility] [place] [facility] to schedule a hospital followup to be seen in 2 weeks. Thank you) Grazyna Florian FNP [Nurse Practitioner] - 1 week (On Tuesday, Please call [facility] [place] [facility] to set a post proceedure followup with PETERSON Lowry to be seen in 1 week. Thank you) Discharge Diet: Low Salt, Low Cholesterol and Low Fat Patient Instructions: Atorvastatin (By mouth), Clopidogrel (By mouth) Activity Restrictions/Additional Instructions: As tolerated, follow-up with cardiology nurse practitioner Grazyna Florian in 7 days. Take clopidogrel regularly. Discharge Date/Time: 08/18/19 12:44 Discharge Attestations Time Spent in Discharge Care*: less than 30 min Specific Discharge Activities: Specific discharge activities: educating patient Quality Metrics Clinical Quality Measures During this hospital stay, did patient experience: None Coding Level of Care Code New Pt Acute Account Solutions Analyst for Chg Fwd Patient Type New History Detailed 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 Medical Decision Making Moderate Complexity Diagnoses Dyspnea R06.00 Moderate pulmonary arterial systolic hypertension I27.21 Combined systolic and diastolic cardiac dysfunction I51.89 Anxiety F41.9 Abnormal ultrasound of kidney R93.429
== END 2019-08-18 12:44 | disposition home or self-care (01) | DRG 189 ==
LOC: ER 14:49 → CSU 17:48
PROVIDERS: Physician Assistant; Admitting Provider Internal Medicine Cardiovascular Disease; PCP Family Medicine; Visit Provider Internal Medicine Cardiovascular Disease
DX: J96.01 Acute respiratory failure with hypoxia (principal); I13.0 Hypertensive heart and chronic kidney disease with heart failure and stage 1 through stage 4 chronic kidney disease, or unspecified chronic kidney disease; I50.42 Chronic combined systolic (congestive) and diastolic (congestive) heart failure; Z91.19 Patient's noncompliance with other medical treatment and regimen; I25.5 Ischemic cardiomyopathy; N18.3 Chronic kidney disease, stage 3 (moderate); I35.1 Nonrheumatic aortic (valve) insufficiency; I27.20 Pulmonary hypertension, unspecified; Z86.711 Personal history of pulmonary embolism; E78.5 Hyperlipidemia, unspecified; I25.10 Atherosclerotic heart disease of native coronary artery without angina pectoris; Z95.5 Presence of coronary angioplasty implant and graft; F17.210 Nicotine dependence, cigarettes, uncomplicated; F41.9 Anxiety disorder, unspecified; J43.9 Emphysema, unspecified; Z79.82 Long term (current) use of aspirin; Z79.51 Long term (current) use of inhaled steroids; R93.429 Abnormal radiologic findings on diagnostic imaging of unspecified kidney
CPT/HCPCS: 12345; 36415; 71045; 76700; 80053; 81001; 83735; 83880; 84443; 84484; 85025; 85378; 93005; 93306; 93971; 94640; 96372; 99283; G0103; J1650

== ENCOUNTER → 2019-10-08 09:06 | Outpatient (BNVA) | payer MEDICARE, SELFPAY | PROVIDERS: PCP Family Medicine; Visit Provider Urology | DX: R93.429 Abnormal radiologic findings on diagnostic imaging of unspecified kidney (principal); N40.1 Benign prostatic hyperplasia with lower urinary tract symptoms; N18.3 Chronic kidney disease, stage 3 (moderate); M54.9 Dorsalgia, unspecified; Z12.5 Encounter for screening for malignant neoplasm of prostate | CPT/HCPCS: 81001 ==

== ENCOUNTER → 2019-10-17 10:39 | Outpatient (BNVA) | payer MEDICARE, SELFPAY | PROVIDERS: PCP Family Medicine; Visit Provider Family Medicine | DX: S93.412A Sprain of calcaneofibular ligament of left ankle, initial encounter (principal); X58.XXXA Exposure to other specified factors, initial encounter; N18.3 Chronic kidney disease, stage 3 (moderate); G47.00 Insomnia, unspecified; Z68.26 Body mass index [BMI] 26.0-26.9, adult; F17.210 Nicotine dependence, cigarettes, uncomplicated | CPT/HCPCS: 73610; 80048 ==

== ENCOUNTER 2019-10-23 09:05 | Outpatient (CLI) | payer MEDICARE, SELFPAY ==
--- NOTE | 2019-10-23 08:30 | CT_ITS ---
WS: [id number] CT ABDOMEN AND PELVIS NONCONTRAST HISTORY: ABNORMAL ULTRASOUND OF KIDNEY TECHNIQUE: Imaging performed through the abdomen and pelvis. Coronal and sagittal reformats are submi tted. All CT scans at [facility] use at least one of these dose optimization techniques: automated exposure control; mA and/or kV adjustment per patient size (includes targeted exams where d ose is matched to clinical indication); or iterative reconstruction. DLP: 898.82 mGy.cm COMPARISON: CT 10/21/2016, ultrasound 08/17/2019 Lower thorax: Chronic pleural thickening in the periphery of the RIGHT middle and RIGHT lower lobes. Changes of emphysema. No mass or nodules. Cardiac chamber size is moderately enlarged. There is a sma ll pericardial effusion. This is new since the prior study from 2017. Liver: Mild hepatomegaly and hepatic steatosis. No bile duct dilatation. Gallbladder: Unremarkable. Pancreas: Normal. Spleen: Normal. Adrenal glands: Normal. Right kidney: Normal size RIGHT kidney. Cyst in the mid kidney measures 2.5 cm diameter. There are se veral additional hyperattenuating and hypoattenuating nodules which cannot be further characterized. No obstruction. There is a nonobstructing 5 mm calcification in the central renal pelvis. RIGHT urete r is normal size. Left kidney: Mild atrophy. Thinning of the renal cortex. The calcifications centrally which could be a vascular calcification. Exophytic area of decreased attenuation from the lower pole may be a cyst a nd was present on the prior study. Mild atherosclerosis. No free fluid, intraperitoneal air or significant lymphadenopathy. GI tract: Constipation. Normal appendix. A few scattered sigmoid and descending colon diverticula wit hout diverticulitis. There is an area of soft tissue thickening and luminal narrowing involving the d istal sigmoid colon. Best seen on image 38 of series 601 and image 141 of series 2. Abdominal wall: Intact. Pelvis: Well-distended urinary bladder. Prostate gland is enlarged encroaching into the posterior uri nary bladder. No free fluid or adenopathy. Osseous structures: Prior posterior lumbar fusion at L4-5 interbody spacer. Large posterior laminecto my defect at the L4-5 level. Mixed sclerotic and lytic changes in the RIGHT ilium are stable. CT/CT kidney stone [id number] IMPRESSION: 1. Mild atrophy LEFT kidney with no obstruction. Central calcification may be vascular in etiology. 2. Hyper and hypoattenuating lesions in the RIGHT kidney cannot be further jennifer racterized without IV contrast but for the most part stable since 2017. 3. Focal soft tissue narrowing involving the distal sigmoid. Neoplasm is not e xcluded. Recommend colonoscopy. 4. Constipation.
== END 2019-10-23 09:06 | disposition home or self-care (01) ==
PROVIDERS: PCP Family Medicine; Visit Provider Urology
DX: R93.429 Abnormal radiologic findings on diagnostic imaging of unspecified kidney (principal); N26.1 Atrophy of kidney (terminal); N28.9 Disorder of kidney and ureter, unspecified; K59.00 Constipation, unspecified; N40.1 Benign prostatic hyperplasia with lower urinary tract symptoms; R97.20 Elevated prostate specific antigen [PSA]
CPT/HCPCS: 74176; 84153

== ENCOUNTER 2020-06-17 14:47 | Inpatient (IN) | payer MEDICARE, SELFPAY ==
[2020-06-17] VITALS (63 sets, daily range): BP systolic 145–191; BP diastolic 90–129; PULSE 70–112; RESP 10–28; TEMP 36.1–36.7; O2SAT 92–100; BMI 27.2
--- NOTE | 2020-06-17 14:53 | XR_ITS ---
WS: [id number] XR chest 1V portable [id number] REASON FOR EXAM: chest pain FINDINGS: Moderate tortuosity of the thoracic aorta without aneurysmal dilatation. The heart is at the upper li mits of normal in size. Cardiac silhouette is somewhat more prominent than on the previous examinatio n of 08/16/2019. Calcified granulomatous disease in both hemithoraces. There is prominence of the interstitium in the periphery of the right mid lung field. These changes are identified on a previous examination of 08/15 and are unchanged, chronic abnormality. No active pulmonary parenchymal or pleural abnormality is identified. No significant abnormality of the bony thorax. XR/XR chest 1V portable [id number] IMPRESSION: Cardiomegaly and chronic interstitial changes in the right lower lung. Previous chest x-rays of this patient demonstrate that these interstitial changes becom e much more prominent when the patient is in congestive heart failure.
--- NOTE | 2020-06-17 14:53 | ECG_ITS ---
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 Measurements Intervals [place] Rate: 89 P: 52 RI: 153 QRS: -22 QRSD: 93 T: 232 QT: 364 QTc: 445 Interpretive Statements SINUS RHYTHM POSSIBLE LEFT ATRIAL ENLARGEMENT [-0.1mV P WAVE IN V1/V2] POSSIBLE RIGHT VENTRICULAR CONDUCTION DELAY [RSR (QR) IN V1/V2] LEFT VENTRICULAR HYPERTROPHY AND ST-T CHANGE [VOLTAGE CRITERIA PLUS ST/T ABNORMALITY] POSSIBLE ANTEROSEPTAL MYOCARDIAL INFARCTION , OF INDETERMINATE AGE [30 ms Q WAVE IN V1-V4] Compared to ECG 08/16/2019 17:14:18 Left-axis deviation no longer present ST (T wave) deviation still present Myocardial infarct finding still present Electronically Signed On 06-18-2020 7:35:33 CDT by Marlyn Solomon M.D. [id number]
[2020-06-17] MEDS: nitroglycerin 1 gm/inch oint Pkt 1 INCH TOPICAL (15:06)
[2020-06-17 15:16] LABS: Basophils % 0.6 %; Eosinophils # 0.1 10^3/uL (0.0-0.8); Eosinophils % 1.7 %; Hematocrit 40.8 % (42.0-52.0); Hemoglobin 13.4 g/dL (11.7-16.6); Lymphocytes # 1.6 10^3/uL (0.8-4.8); Lymphocytes % 25.1 %; Mean Corpuscular HGB Conc 32.8 g/dL (30.0-36.0); Mean Corpuscular Hemoglobin 32.5 pg (28.0-34.0); Mean Platelet Volume 10.4 fL (7.4-10.4); Monocytes # 0.6 10^3/uL (0.2-0.9); Monocytes % 8.4 %; Neutrophils # 4.17 10^3/uL (1.8-7.7); Neutrophils % 63.9 %; Nucleated Red Blood Cells % 0 %; Platelet Count 262 10^3/cmm (130-400); Red Blood Count 4.12 10^6/uL (4.1-5.3); Red Cell Distribution Width 14.2 % (12.1-15.1); White Blood Count 6.5 10^3/uL (4.0-10.0)
--- NOTE | 2020-06-17 15:18 | W.ED.CHESTPA ---
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 He was here for routine visit admits over the last several weeks he has had chest pain with exertion usually resolved after about 30 minutes of breath. At times will radiate into his neck and jaw sometimes the left shoulder he does get short of breath with that he is not have any nausea or vomiting. He is a known history of coronary disease and tells me that he had a angiogram with stenting done last year some time he does still think he has been taking his platelet inhibitors. His medicine list he is listed is being is on clopidogrel he does not believe he is run out or stop taking it. Uncertain because the number of medicines he is actually on. Patient is not diabetic but is a history of hypertension hyperlipidemia. Patient is a smoker. He is actively having chest pain at the time he was seen rates his pain at a 4-5 out of 10. He has T wave inversion in 2 3 and aVF as well as in the lateral leads V4 5 and 6. There is no ST elevation. Patient had EKG done when he arrived here had a similar appearing EKG that had been done at Dr. Berrios's office. He brought that one with him. MD complaint: chest pain Pertinent past history: coronary artery disease, prior [place] and [employer] Onset (ago): week(s) (2) Timing of current episode: episodic Prior episodes: Yes Onset: during exertion Pain location: left chest Pain radiation: neck, jaw/teeth and left shoulder Severity: moderate Pain scale (0-10): 5 Relieving factors: rest Exacerbating factors: exertion Associated symptoms: Reports no associated symptoms, diaphoresis, dyspnea and fever(s); Deny abdominal pain, leg edema, nausea, palpitations, sense of impending doom, syncope or vomiting Treatment prior to arrival: none Review of Systems Const: Reports: fever(s) and diaphoresis ENMT: Denies: throat pain, ear or mastoid pain, nasal discharge or nasal congestion Card: Denies: palpitations or syncope Resp: Reports: dyspnea GI: Denies: abdominal pain, nausea or vomiting : Denies: flank pain, dysuria, urinary frequency or urinary urgency Skin/Breast: Denies: rash or pruritus PFSH ED PFSH: Medical History BPH NOS w ur obs/LUTS Chronic kidney disease Combined systolic and diastolic cardiac dysfunction Elevated PSA History of pulmonary embolism Hyperlipidemia Hypertension Ischemic cardiomyopathy Mild aortic regurgitation Mild aortic stenosis 12/07/2018: Mean gradient 4.6 mmHg, aortic valve area 2.2 cm? Moderate to severe pulmonary hypertension 12/07/2018: 70 mmHg Presence of stent in LAD coronary artery Smoking Surgical History History of ankle surgery History of back surgery Family History Family/Other Cancer Mother Dementia Diabetes Sister Diabetes Father , AT AGE 78 Brain aneurysm Denies family history of CAD (coronary artery disease) Clotting disorder Hyperlipidemia Psychiatric illness Chronic kidney disease (CKD) Suicide Anesthesia complication Bleeding disorder Family history of premature coronary artery disease Lung disease Hypertension Stroke Social History Smoking and tobacco status: current every day smoker cigarettes Years cigarettes smoked: 20 Quit status (tobacco): considering quitting Alcohol intake: current Alcohol intake frequency: few times a month Marital status: Current occupational status: disabled History of recent travel: No Physical Exam Const: COMMON NORMALS: no acute distress GENERAL APPEARANCE: cooperative and comfortable ORIENTATION/CONSCIOUSNESS: Yes awake, Yes oriented to person, Yes oriented to place and Yes oriented to time HENMT: COMMON NORMALS: normocephalic, atraumatic and hearing grossly normal bilaterally HEAD & SCALP: normocephalic and atraumatic Neck/C-Spine: COMMON NORMALS: no JVD Resp: COMMON NORMALS: normal respiratory effort, No retractions, No use of accessory muscles and clear to auscultation bilaterally AUSCULTATION: clear to auscultation bilaterally Cardio: COMMON NORMALS: no JVD, regular rate, regular rhythm and No murmurs present (Cardio) RATE: regular rate RHYTHM: regular rhythm GI: COMMON NORMALS: Soft to palpation and No hepatosplenomegaly present AUSCULTATION: Yes normoactive bowel sounds PALPATION: Yes Soft to palpation, No Tenderness to palpation present (GI), No Guarding due to palpation present (GI) and Yes No hepatosplenomegaly present Extremity: COMMON NORMALS: normal to inspection, capillary refill normal, no clubbing, cyanosis or edema, no calf tenderness and no pedal edema Neuro: SENSORIUM/ORIENTATION: Yes oriented to person, Yes oriented to place and Yes oriented to time Skin: COMMON NORMALS: no rashes or lesions noted GENERAL SKIN EXAM: no rashes or lesions noted Course Vital Signs: Vital signs: Vital Signs Temperature 98.0 F 06/17/20 14:59 Pulse Rate 79 06/17/20 16:45 Respiratory Rate 15 06/17/20 16:45 Blood Pressure 171/110 06/17/20 16:45 Pulse Oximetry 97 06/17/20 16:45 MDM - Chest Pain MDM Narrative: Medical decision making narrative: Chest pain and blood pressure improved on nitro. We will go ahead and admit the patient he will need fluid resuscitation for his acute on chronic kidney injury also need echo for evaluation of his cardiac function his cardiac silhouette on chest x-ray is enlarged compared to previous. Also need serial troponins have discussed with hospitalist and Dr. Mckeon will consult. Lab Data: Labs: Lab Results 06/17/20 06/17/20 06/17/20 Range/Units 15:02 15:02 15:02 WBC 6.5 (4.0-10.0) 10^3/ uL RBC 4.12 (4.1-5.3) 10^6/u L Hgb 13.4 (11.7-16.6) g/dL Hct 40.8 L (42.0-52.0) % MCV 99.0 H (80-94) fL MCH 32.5 (28.0-34.0) pg MCHC 32.8 (30.0-36.0) g/dL RDW 14.2 (12.1-15.1) % Plt Count 262 (130-400) 10^3/c mm MPV 10.4 (7.4-10.4) fL Neut % (Auto) 63.9 % Lymph % (Auto) 25.1 % Lawrence % (Auto) 8.4 % Eos % (Auto) 1.7 % Baso % (Auto) 0.6 % Neut # (Auto) 4.17 (1.8-7.7) 10^3/u L Lymph # (Auto) 1.6 (0.8-4.8) 10^3/u L Lawrence # (Auto) 0.6 (0.2-0.9) 10^3/u L Eos # (Auto) 0.1 (0.0-0.8) 10^3/u L Baso # (Auto) 0.0 (0.0-0.1) 10^3/u L Nucleated RBC % (a uto) 0 % Nucleated RBCs # 0.0 /100WBC Sodium 139 (136-145) mmol/L Potassium 4.6 (3.5-5.1) mmol/L Chloride 107 (98-107) mmol/L Carbon Dioxide 22 (22-29) mmol/L Anion Gap 14.6 (5-19) BUN 33 H (8-23) mg/dL Creatinine 3.0 H (0.7-1.2) mg/dL GFR Calculation 25.5 L (90-130) mL/min Glucose 91 (65-115) mg/dL Calculated Osmolal ity 295 (285-295) mOsm/k g Calcium 8.1 L (8.5-10.5) mg/dL Total Bilirubin 0.2 (0.15-1.2) mg/dL AST 32 (0-40) U/L ALT 17 (0-41) U/L Alkaline Phosphata se 120 (40-130) IU/L Troponin T Baselin e 39 H (0-15) ng/L NT-Pro-B Natriuret Pep 42351 H (0-125) pg/mL Total Protein 6.3 L (6.6-8.7) g/dL Albumin 3.1 L (3.5-5.2) g/dL Globulin 3.2 (1.3-4.6) g/dL Discharge Plan Discharge Patient Disposition: Admitted As Inpatient Clinical Impression: Angina pectoris, Combined systolic and diastolic cardiac dysfunction, Ischemic cardiomyopathy, Hyperlipidemia, Smoking, Hypertension, Acute kidney injury superimposed on chronic kidney disease Condition: Stable Coding Level of Care Code ED Government Affairs Director for Ramana Fwd Exam Comprehensive
[2020-06-17] MEDS: enoxaparin 80 mg/0.8 mL Syringe SUBCUT (15:21)
[2020-06-17] MEDS: aspirin 81 mg Chew Tablet 324 MG PO (15:22)
[2020-06-17 15:39] LABS: Troponin(5th) Baseline 39 ng/L (0-15)
[2020-06-17 15:43] LABS: Alanine Aminotransferase 17 U/L (0-41); Albumin Level 3.1 g/dL (3.5-5.2); Alkaline Phosphatase 120 IU/L (40-130); Anion Gap 14.6 (5-19); Aspartate Amino Transferase 32 U/L (0-40); Blood Urea Nitrogen 33 mg/dL (8-23); Calcium 8.1 mg/dL (8.5-10.5); Carbon Dioxide 22 mmol/L (22-29); Chloride 107 mmol/L (98-107); Globulin 3.2 g/dL (1.3-4.6); Glomerular Filtration Rate 25.5 mL/min (90-130); Glucose 91 mg/dL (65-115); NT Pro B Type Natriuretic Pept 13469 pg/mL (0-125); Osmolality Calculated 295 mOsm/kg (285-295); Potassium 4.6 mmol/L (3.5-5.1); Sodium 139 mmol/L (136-145); Total Bilirubin 0.2 mg/dL (0.15-1.2); Total Protein 6.3 g/dL (6.6-8.7)
[2020-06-17] MEDS: morphine 4 mg/mL SDV 1 mL IVP ×2 (16:04→16:05)
[2020-06-17] MEDS: nitroglycerin drip 50 MG/250 ML PREMIX IV (16:04)
--- NOTE | 2020-06-17 16:53 | ECG_ITS ---
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 Measurements Intervals [place] Rate: 69 P: 57 MN: 156 QRS: -41 QRSD: 92 T: 231 QT: 414 QTc: 445 Interpretive Statements SINUS RHYTHM POSSIBLE LEFT ATRIAL ENLARGEMENT [-0.1mV P WAVE IN V1/V2] MARKED LEFT AXIS DEVIATION [QRS AXIS < -30] INCOMPLETE RIGHT BUNDLE BRANCH BLOCK [90+ ms QRS DURATION, TERMINAL R IN V1/V2, 40+ ms S IN I/aVL/V4/V5/V6] LEFT VENTRICULAR HYPERTROPHY AND ST-T CHANGE [VOLTAGE CRITERIA PLUS ST/T ABNORMALITY] ANTEROSEPTAL MYOCARDIAL INFARCTION [40+ ms Q WAVE IN V1-V4], PROBABLY RECENT Compared to ECG 06/17/2020 15:00:25 Left-axis deviation now present Incomplete right bundle-branch block now present ST (T wave) deviation still present Myocardial infarct finding still present Electronically Signed On 06-18-2020 7:44:58 CDT by Marlyn Solomon M.D. [id number]
[2020-06-17 18:06] LABS: Troponin 5 2HR 37.47 ng/L (0-15)
[2020-06-17 18:07] LABS: Troponin 5 2HR Delta -1.53 ABS# (0-10)
--- NOTE | 2020-06-17 19:42 | PM.HP ---
Providers/Chief Complaint Admitting Physician: Andrews Amaya Primary Care Provider: Jane Vega MD Chief Complaint: ACTIVE CHEST PAIN History of Present Illness This is a nice 65-year-old gentleman with history of CAD, HTN, chronic kidney disease, congestive heart failure, PE, AVS, AVR, moderate to severe pulmonary hypertension, current smoker who is being admitted for additional assessment management due to very elevated blood pressures noted in the cardiology office, with systolic blood pressures in 200s, as well as with recently recurrent and now persistent chest pain, left-sided, radiating to left arm. He states that he had lost his nitroglycerin at home, had only 1 tablet left, and so could not try those. When asked if he is taking his Plavix, states that he has been trying to take them, as well as the rest of his medicines. He also states that he is still currently smokes, but understands that he needs to quit, and has been trying. He reports that recently he has been more short of breath with exertion, states he cannot really sleep on his back due to back pain which is a chronic problem. He does report that recently also has been hanging sheet rock, and so has developed some pain in his left shoulder. He states he also has been having the feeling that his blood pressure has been elevated, although does not own a blood pressure cuff, and says has not been measuring his blood pressure. He states he has been having a headache, however, which he says usually to him indicates that his blood pressure is elevated. He says he has been taking a pain reliever at home, does not exactly recall the name of it, but says it is like aspirin . In addition also says has been taking tramadol. Names his daughter Jeannette is a surrogate decision maker in case at any point becomes unable to make decisions for himself. Review of Systems Const: Denies: fever(s), chills, body aches or malaise Eyes: Denies: change in vision or eye redness ENMT: Denies: throat pain, oral sores or ear or mastoid pain Card: Reports: chest pain and dyspnea on exertion; Denies: edema or pre-syncope Resp: Denies: dyspnea, productive cough, change in phlegm color or hemoptysis GI: Denies: abdominal pain, nausea, vomiting, diarrhea, constipation, hematochezia or melena : Denies: flank pain, difficulty urinating, urinary frequency or hematuria Musc: Reports: other (Pain in the left shoulder.); Denies: back pain, joint swelling or joint redness Skin/Breast: Reports: other (Chronic dry skin on lower extremities.); Denies: rash, sores or new lesions Neuro: Denies: headache(s), numbness in extremities, weakness in extremities, dizziness, confusion or seizure-like activity Endo: Denies: polyuria or polydipsia [place]/Lymph: Denies: easy bleeding or purpura All/Imm: Denies: urticaria, throat swelling or tongue swelling Medications/Allergies Home Medications Medication Instructions Recorded Confirmed Last Taken Type hydralazine 25 mg tablet 25 mg PO TID 07/25/19 06/17/20 06/16/20 History isosorbide mononitrate 30 mg 30 mg PO DAILY #90 tab 07/25/19 06/17/20 06/16/20 Rx tablet,extended release 24 hr albuterol sulfate 90 mcg/actuation 2 inh INHALATION Q4H PRN gm 08/13/19 06/17/20 Unknown History aerosol inhaler aspirin 81 mg tablet,delayed 81 mg PO DAILY 08/13/19 06/17/20 08/16/19 History release carvedilol 12.5 mg tablet 12.5 mg PO BID tab 08/13/19 06/17/20 08/16/19 History 2 TABS fluticasone propion-salmeterol 2 inh INHALATION BID PRN 08/16/19 06/17/20 06/17/20 History [Wixela Inhub] furosemide 60 - 80 mg PO BID 08/16/19 06/17/20 06/16/20 History clopidogrel 75 mg PO DAILY #90 tab 08/18/19 06/17/20 06/16/20 Rx potassium chloride 20 mEq 20 meq PO DAILY tab 10/08/19 06/17/20 06/16/20 History tablet,extended release amlodipine 10 mg tablet 10 mg PO DAILY #90 tab 10/15/19 06/17/20 Unknown Rx tramadol 50 mg tablet 50 mg PO Q12H PRN 30 Days #45 tab 11/05/19 06/17/20 Unknown Rx qtefldu-njwnxidslzjzc-uxfxobsl 1 tab PO Q6H PRN 06/17/20 06/17/20 06/17/20 History [Pain Relief ([id number])] nitroglycerin 0.4 mg sublingual 0.4 mg SUBLINGUAL Q5M PRN #25 tab 06/17/20 06/17/20 Unknown Rx tablet tamsulosin 0.4 mg PO DAILY 06/17/20 06/17/20 Unknown History Allergies Allergy/AdvReac Type Severity Reaction Status Date / Time No Known Allergies Allergy Verified 06/17/20 14:59 PFSH Acute PFSH: Medical History BPH NOS w ur obs/LUTS Chronic kidney disease Combined systolic and diastolic cardiac dysfunction Elevated PSA History of pulmonary embolism Hyperlipidemia Hypertension Ischemic cardiomyopathy Mild aortic regurgitation Mild aortic stenosis 12/07/2018: Mean gradient 4.6 mmHg, aortic valve area 2.2 cm? Moderate to severe pulmonary hypertension 12/07/2018: 70 mmHg Presence of stent in LAD coronary artery Smoking Surgical History History of ankle surgery History of back surgery Family History (Updated 06/17/20 @ 19:46 by Andrews Amaya MD) Family/Other Cancer Mother Dementia Diabetes Sister Diabetes CAD (coronary artery disease) Father , AT AGE 78 Brain aneurysm Denies family history of Clotting disorder Hyperlipidemia Psychiatric illness Chronic kidney disease (CKD) Suicide Anesthesia complication Bleeding disorder Family history of premature coronary artery disease Lung disease Hypertension Stroke Social History Smoking and tobacco status: current every day smoker cigarettes Years cigarettes smoked: 20 Quit status (tobacco): considering quitting Alcohol intake: current Alcohol intake frequency: few times a month Marital status: Current occupational status: disabled History of recent travel: No Vitals/I&O/Wt Last Vital Signs Temp 98.0 F 06/17/20 14:59 Pulse 81 06/17/20 18:40 Resp 18 06/17/20 18:40 BP 155/101 06/17/20 18:40 Pulse Ox 98 06/17/20 18:40 06/17/20 06/17/20 06/17/20 06:59 14:59 22:59 Intake Total 29.725 / 29.725 Balance 29.725 / 29.725 Weight last 48 hrs Weight 86.183 kg Physical Exam Const: COMMON NORMALS: no acute distress and patient oriented x3 HENMT: COMMON NORMALS: oropharynx normal Neck/C-Spine: COMMON NORMALS: no JVD Resp: COMMON NORMALS: normal respiratory effort and clear to auscultation bilaterally AUSCULTATION: clear to auscultation bilaterally Cardio: COMMON NORMALS: no JVD, regular rhythm, S1 normal heart sound present, S2 normal heart sound present and No murmurs present (Cardio) RHYTHM: regular rhythm HEART SOUNDS: S1 normal heart sound present and S2 normal heart sound present GI: COMMON NORMALS: Normal to inspection, nondistended, normoactive bowel sounds present, Soft to palpation and non-tender PALPATION: Yes Soft to palpation Extremity: COMMON NORMALS: no joint enlargement and no pedal edema OTHER: Left shoulder pain on palpation of bicipital tendon, on passive, but full range of motion. Does not appear to be swollen compared to the right. No erythema or warmth. Neuro: COMMON NORMALS: patient oriented x3 and moves all extremities Skin: COMMON NORMALS: no rashes or lesions noted NARRATIVE SKIN EXAM: Tattoos GENERAL SKIN EXAM: no rashes or lesions noted Data : 06/17/20 15:02 06/17/20 15:02 A&P Assessment and plan (1) Angina pectoris: Concern for possible unstable angina with recently progressive in frequency and duration chest pain, persistent pain today. Known CAD. Very poorly controlled hypertension, with recently very elevated pressures. Unclear adherence with medications as he states he is trying to take his Plavix, concern is that he may not be taking medications as prescribed. Discussed with him in detail to make sure to take his Plavix especially, as well as aspirin to prevent clotting off of stents, avoid massive heart attack and . He verbalized understanding. Continue treatment for possible unstable angina at this time. Pending cardiology assessment. Continue aspirin, Plavix, statin, beta-lauri, Lovenox. Monitor on telemetry. Continue nitroglycerin drip. Complete troponin EKG series. Assess TTE. Reassess renal function. Discussed with him possible terms of causes. Certainly there is high risk of possible cardiac ischemia. In addition appears to also have some issues with left shoulder due to recently hanging sheet rock. Status: Acute (2) Hypertensive urgency: Nitro drip. Monitor blood pressures. Resume home antihypertensives. Status: Acute (3) Ischemic cardiomyopathy: Status: Acute (4) Combined systolic and diastolic cardiac dysfunction: Recently more shortness of breath, with exertion, possible orthopnea, although says overall does not sleep well. Never sleeps on his back due to chronic back pain. Received fluid challenge in ER. Will hold off additional fluid given history of CHF, now CHF with possible exacerbation. Outwardly does not appear fluid overloaded. Does appear to have some prominence of interstitial lung disease on imaging. Discussed with him x-ray results. We will obtain limited TTE given history of severe cardiomyopathy. Monitor volume status. Status: Chronic (5) Acute kidney injury superimposed on chronic kidney disease: Discussed with him regarding chronic kidney disease and no superimposed acute kidney injury. Unclear cause. Possibility from severe hypertension. Also appears to have been taking some sort of pain medication recently, cannot exclude NSAIDs, he does not remember the name states only that it is like aspirin which he has been taking in addition to tramadol. Discussed with him to avoid NSAIDs which may contribute to kidney injury. Will assess kidney ultrasound to exclude obstruction. Assess urine studies. Status: Acute (6) Moderate pulmonary arterial systolic hypertension: Monitor oxygenation, supplemental oxygen as needed. Status: Acute (7) Smoking: Discussed with him smoking cessation for 4 minutes. He understands he needs to quit. Discussed with him risks of cardiovascular disease, progression of lung disease. He states he is trying to quit. In case of cravings we will provide nicotine supplementation. Status: Acute (8) Left shoulder pain: Reports after recently hanging sheet rock. There is some pain on passive range of motion. Some tenderness on palpation of bicipital tendon. Does not appear to be swollen compared to the right. There is no erythema. No warmth. For now we will treat symptomatically. Consider additional imaging and follow-up with primary provider after discharge. Status: Acute (9) Interstitial lung disease: With history of pulmonary hypertension. Also noted possibility of interstitial lung disease in right lower lung, becoming more prominent with congestive changes. Discussed with him. Consider PFT after discharge. Consider follow-up with pulmonology. Status: Acute Attestations Medical Necessity Statement*: Admission of over 2 midnights ago needed for assessment of management of possible unstable angina, in a gentleman with known coronary disease, with acute kidney injury on chronic kidney disease, severe cardiomyopathy with possible progression, with worsening CHF, with underlying pulmonary hypertension, active smoking, lack of consistent adherence with medications, with high risk of complications. Coding Level of Care Code Acute Field Mechanical Meter Tester for Chg Fwd Diagnoses Angina pectoris I20.9 Hypertensive urgency I16.0 Ischemic cardiomyopathy I25.5 Combined systolic and diastolic cardiac dysfunction I51.89 Acute kidney injury superimposed on chronic kidney disease N17.9; N18.9 Moderate pulmonary arterial systolic hypertension I27.21 Smoking F17.200 Left shoulder pain M25.512 Interstitial lung disease J84.9
[2020-06-17] MEDS: morphine 4 mg/mL SDV 1 mL 2 MG IVP (20:26)
[2020-06-17] MEDS: hyDRALAzine 25 mg Tablet PO (20:27)
--- NOTE | 2020-06-17 21:13 | P.CONIM_ITS ---
Providers/Reason For Consult Consulting Physican/Specialty*: Cardiology Reason for Consult*: Cardiomyopathy, hypertensive urgency, chest pain Attending Physician: Andrews Amaya Primary Care Provider: Jane Vega MD History of Present Illness History of Present Illness Fredy Hammonds is a 65 year old male past medical history significant for noncompliance both for taking medicine, food habits, history of coronary artery disease status post drug-eluting stents, history of ischemic cardiomyopathy, chronic kidney disease stage III-IV baseline creatinine between 2 and 3, history of malignant hypertension presented to my office with systolic blood pressure more than 200 while diastolic 110. He was complaining of chest pain EKG was performed in my office which showed left ventricle hypertrophy with repolarization abnormality no concern for ST elevation [place]. He was transferred to ER where I discussed plan with Dr. Orona. It was learned that patient was not taking his meds. He is concerned about his kidneys. Patient was started on nitroglycerin drip and restarted on his medicines. He was given Lovenox as anticoagulation. His chest pain resolved. According to him he was moving some stuff and may have been pulled his muscle. Our plan is to rule him out for ac anisha coronary syndrome and control his blood pressure. If required we may will opt for stress test versus coronary angiogram which at this point I will try to avoid due to underlying kidney disease unless it is absolutely necessary. He also appeared to be compensated therefore will hold diuretics. Review of Systems Const: Reports: diaphoresis; Denies: fever(s), chills, body aches or malaise Eyes: Denies: change in vision or eye redness ENMT: Denies: throat pain, oral sores, ear or mastoid pain, nasal discharge or nasal congestion Card: Reports: chest pain and dyspnea on exertion; Denies: palpitations, edema, syncope or pre-syncope Resp: Denies: dyspnea, productive cough, change in phlegm color or hemoptysis GI: Denies: abdominal pain, nausea, vomiting, diarrhea, constipation, hematochezia or melena : Denies: flank pain, difficulty urinating, dysuria, urinary frequency, urinary urgency or hematuria Musc: Reports: other (Pain in the left shoulder.); Denies: back pain, joint swelling or joint redness Skin/Breast: Reports: other (Chronic dry skin on lower extremities.); Denies: rash, pruritus, sores or new lesions Neuro: Denies: headache(s), numbness in extremities, weakness in extremities, dizziness, confusion or seizure-like activity Endo: Denies: polyuria or polydipsia Kameron/Lymph: Denies: easy bleeding or purpura All/Imm: Denies: urticaria, throat swelling or tongue swelling Meds/Allergies Home Medications and Allergies Home Medications Medication Instructions Recorded Confirmed Last Taken Type hydralazine 25 mg tablet 25 mg PO TID 07/25/19 06/17/20 06/16/20 History isosorbide mononitrate 30 mg 30 mg PO DAILY #90 tab 07/25/19 06/17/20 06/16/20 Rx tablet,extended release 24 hr albuterol sulfate 90 mcg/actuation 2 inh INHALATION Q4H PRN gm 08/13/19 06/17/20 Unknown History aerosol inhaler aspirin 81 mg tablet,delayed 81 mg PO DAILY 08/13/19 06/17/20 08/16/19 History release carvedilol 12.5 mg tablet 12.5 mg PO BID tab 08/13/19 06/17/20 08/16/19 History 2 TABS fluticasone propion-salmeterol 2 inh INHALATION BID PRN 08/16/19 06/17/20 06/17/20 History [Wixela Inhub] furosemide 60 - 80 mg PO BID 08/16/19 06/17/20 06/16/20 History clopidogrel 75 mg PO DAILY #90 tab 08/18/19 06/17/20 06/16/20 Rx potassium chloride 20 mEq 20 meq PO DAILY tab 10/08/19 06/17/20 06/16/20 History tablet,extended release amlodipine 10 mg tablet 10 mg PO DAILY #90 tab 10/15/19 06/17/20 Unknown Rx tramadol 50 mg tablet 50 mg PO Q12H PRN 30 Days #45 tab 11/05/19 06/17/20 Unknown Rx xdmmael-yrbewgdsyjylv-xybizmlx 1 tab PO Q6H PRN 06/17/20 06/17/20 06/17/20 History [Pain Relief (lvskggtm-bhy-fwz)] nitroglycerin 0.4 mg sublingual 0.4 mg SUBLINGUAL Q5M PRN #25 tab 06/17/20 06/17/20 Unknown Rx tablet tamsulosin 0.4 mg PO DAILY 06/17/20 06/17/20 Unknown History Allergies Allergy/AdvReac Type Severity Reaction Status Date / Time No Known Allergies Allergy Verified 06/17/20 14:59 Current Medications Current Medications Generic Name Dose Route Start Last Admin Trade Name Freq PRN Reason Stop Dose Admin Hydralazine HCl 25 mg 06/17/20 21:00 06/17/20 20:27 Hydralazine 25 Mg Tablet PO 25 mg TID VENUS Administration Nitroglycerin/Dextrose 50 mg in 250 mls @ 0 mls/hr 06/17/20 16:00 06/17/20 19:45 Nitroglycerin Drip IV 100 mcg/min .Q0M VENUS 30 mls/hr Titration Protocol Per Protocol Morphine Sulfate 2 mg 06/17/20 19:53 06/17/20 20:26 Morphine 4 Mg/Ml Sdv 1 Ml IVP 2 mg Q4H PRN Administration SEVERE PAIN Fluticasone/Salmeterol 1 puff 06/17/20 19:53 06/17/20 20:38 Fluticasone-Salmeterol 250-50 Diskus INHALATION 1 puff BID PRN Administration UNKNOWN PFSH Acute PFSH: Medical History BPH NOS w ur obs/LUTS Chronic kidney disease Combined systolic and diastolic cardiac dysfunction Elevated PSA History of pulmonary embolism Hyperlipidemia Hypertension Ischemic cardiomyopathy Mild aortic regurgitation Mild aortic stenosis 12/07/2018: Mean gradient 4.6 mmHg, aortic valve area 2.2 cm? Moderate to severe pulmonary hypertension 12/07/2018: 70 mmHg Presence of stent in LAD coronary artery Smoking Surgical History History of ankle surgery History of back surgery Family History (Updated 06/17/20 @ 19:46 by Andrews Amaya MD) Family/Other Cancer Mother Dementia Diabetes Sister Diabetes CAD (coronary artery disease) Father , AT AGE 78 Brain aneurysm Denies family history of Clotting disorder Hyperlipidemia Psychiatric illness Chronic kidney disease (CKD) Suicide Anesthesia complication Bleeding disorder Family history of premature coronary artery disease Lung disease Hypertension Stroke Social History Smoking and tobacco status: current every day smoker cigarettes Years cigarettes smoked: 20 Quit status (tobacco): considering quitting Alcohol intake: current Alcohol intake frequency: few times a month Marital status: Current occupational status: disabled History of recent travel: No Dietary Habits: Current diet type/program: regular Caffeine: Yes Exercise: What type of physical activity do you participate in?: none Vitals/I&O/Wt Last Vital Signs Temp 96.9 F L 06/17/20 20:00 Pulse 86 06/17/20 20:43 Resp 18 06/17/20 20:38 BP 145/108 06/17/20 20:00 Pulse Ox 99 06/17/20 20:38 06/17/20 06/17/20 06/17/20 06:59 14:59 22:59 Intake Total 56.125 / 56.125 Balance 56.125 / 56.125 Weight last 48 hrs Weight 190 lb Physical Exam Narrative: EXAM NARRATIVE: GENERAL: Patient is alert, awake and oriented x3. Mild distress NECK: No jugular vein distension. HEENT: No cyanosis. No icterus. No pallor. HEART: Regular S1 and S2. No murmur, rub or gallop. LUNGS: Clear to auscultate bilaterally. ABDOMEN: Soft, nontender and nondistended. Positive bowel sounds. No guarding, rebound or tenderness. CENTRAL NERVOUS SYSTEM: Grossly nonfocal. EXTREMITIES: Lower extremities without edema bilaterally. A&P Assessment and plan (1) Hypertensive urgency: We will continue nitro drip which will be titrated. Agree with restarting his carvedilol hydralazine if required may add amlodipine. Further plan will be advised as per progress the patient Status: Acute (2) Acute kidney injury superimposed on chronic kidney disease: Most likely due to malignant hypertension noncompliance. I will also hold diuretics as appear to be on the dry side. Status: Acute (3) Ischemic cardiomyopathy: Patient has ischemic cardiomyopathy with moderately depressed LV function. Will assess LV function with echocardiogram. Requires compliance with the medicine Status: Acute (4) Combined systolic and diastolic cardiac dysfunction: Currently well compensated. Status: Chronic (5) Chest pain: A complaint of chest pain in the precordial area radiating to left axilla but also says it is worse on movement will rule him out for acute coronary syndrome may will benefit with stress test if ruled out. We will decide tomorrow Status: Acute Consult Attestations Medical Necessity Statement: I am expecting his stay to cross more than 2 midnights Coding Level of Care Code Established Pt Acute Handicraft Or Hobby Shop Manager for Ramana Pillai Patient Type Established History Detailed 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 Medical Decision Making Moderate Complexity Diagnoses Hypertensive urgency I16.0 Acute kidney injury superimposed on chronic kidney disease N17.9; N18.9 Ischemic cardiomyopathy I25.5 Combined systolic and diastolic cardiac dysfunction I51.89 Chest pain R07.9
[2020-06-17 21:19] LABS: Troponin 5 6HR 40.51 ng/L (0-15); Troponin 5 6HR Delta 1.51 ng/L (0-12)
[2020-06-17] MEDS: carvedilol 12.5 mg Tablet PO (22:19)
[2020-06-17] MEDS: TRAMadol 50 mg Tablet PO (22:26)
[2020-06-18] VITALS (79 sets, daily range): BP systolic 106–157; BP diastolic 66–108; PULSE 60–97; RESP 13–35; TEMP 36.6–36.8; O2SAT 94–100
[2020-06-18] MEDS: acetaminophen 325 mg Tablet 650 MG PO (01:53)
[2020-06-18] MEDS: nitroglycerin drip 50 MG/250 ML PREMIX 36 MG IV (01:56)
[2020-06-18 04:49] LABS: Basophils % 0.7 %; Eosinophils # 0.2 10^3/uL (0.0-0.8); Eosinophils % 2.8 %; Hematocrit 34.8 % (42.0-52.0); Hemoglobin 11.4 g/dL (11.7-16.6); Lymphocytes # 1.5 10^3/uL (0.8-4.8); Lymphocytes % 27.2 %; Mean Corpuscular HGB Conc 32.8 g/dL (30.0-36.0); Mean Corpuscular Hemoglobin 32.5 pg (28.0-34.0); Mean Corpuscular Volume 99.1 fL (80-94); Mean Platelet Volume 10.9 fL (7.4-10.4); Monocytes # 0.6 10^3/uL (0.2-0.9); Monocytes % 10.4 %; Neutrophils # 3.15 10^3/uL (1.8-7.7); Neutrophils % 58.7 %; Nucleated Red Blood Cells % 0 %; Platelet Count 215 10^3/cmm (130-400); Red Blood Count 3.51 10^6/uL (4.1-5.3); Red Cell Distribution Width 14.1 % (12.1-15.1); White Blood Count 5.4 10^3/uL (4.0-10.0)
--- NOTE | 2020-06-18 05:00 | PC.NURSE ---
NURSE NOTE: ADMISSION NOTE: PT ARRIVED TO UNIT AT APPROXIMATELY 2009 TODAY. BP UPON ARRIVAL = 166/115; NITRO GTT RUNNING AT 100 MCG/MIN. HR 79 BPM. PT C/O NO CHEST PAIN BUT HEADACHE AT 8/10 ON PAIN SCALE. PT ALERT AND ORIENTED X4; MOVES ALL EXTREMITIES AND FOLLOWS ALL COMMANDS. PLACED CALL TO DR. JONES TO CLARIFY ORDERS. RECEIVED ORDERS TO GIVE 12.5 MG COREG NOW AND INCREASE HYDRALYZINE TO 50 MG TID. NITRO GTT TITRATED PER ORDERS AND IS CURRENTLY RUNNING AT 125 MCG/MIN. DENIES CP AT THIS TIME. CURRENT BP = 133/97. CURRENTLY RESTING WITH EYES CLOSED; RESP EVEN AND NON LABORED. ALL VS AND ASSESSMENTS CHARTED.
[2020-06-18 05:16] LABS: Anion Gap 14.2 (5-19); Blood Urea Nitrogen 36 mg/dL (8-23); Calcium 7.7 mg/dL (8.5-10.5); Carbon Dioxide 20 mmol/L (22-29); Chloride 107 mmol/L (98-107); Glomerular Filtration Rate 26.6 mL/min (90-130); Glucose 104 mg/dL (65-115); Osmolality Calculated 293 mOsm/kg (285-295); Potassium 4.2 mmol/L (3.5-5.1); Sodium 137 mmol/L (136-145)
[2020-06-18] MEDS: isosorbide mononitrate ER 30 mg Tablet PO (08:12)
[2020-06-18] MEDS: hyDRALAzine 50 mg Tablet PO ×3 (08:12→20:28)
[2020-06-18] MEDS: aspirin 325 mg Tablet PO (08:12)
[2020-06-18] MEDS: FUROsemide 40 mg Tablet PO (08:12)
[2020-06-18] MEDS: amlodipine 10 mg Tablet PO (08:12)
[2020-06-18] MEDS: tamsulosin 0.4 mg Capsule PO (08:13)
[2020-06-18] MEDS: albumin 12.5 GM/50 ML VIAL IV (08:13)
[2020-06-18] MEDS: carvedilol 12.5 mg Tablet PO ×2 (08:13→18:53)
[2020-06-18] MEDS: clopidogrel 75 mg Tablet PO (08:13)
[2020-06-18] MEDS: nitroglycerin drip 50 MG/250 ML PREMIX 37.5 MG IV (08:27)
--- NOTE | 2020-06-18 08:33 | P.PN_ITS ---
Subjective Subjective: Interval history: Feeling better denies any chest pain morning. Blood pressure has improved. Medications: Reviewed: Yes Vitals/I&O/Wt Last Vital Signs Temp 98.2 F 06/18/20 07:16 Pulse 72 06/18/20 07:16 Resp 23 H 06/18/20 07:16 BP 146/98 06/18/20 07:16 Pulse Ox 97 06/18/20 07:16 06/17/20 06/18/20 06/18/20 22:59 06:59 14:59 Intake Total 134.125 / 134.125 493.475 / 627.600 215.625 / 215.625 Output Total 275 / 275 Balance 134.125 / 134.125 218.475 / 352.600 215.625 / 215.625 Weight last 48 hrs Weight 190 lb Physical Exam Narrative: EXAM NARRATIVE: GENERAL: Patient is alert, awake and oriented x3. NECK: No jugular vein distension. HEENT: No cyanosis. No icterus. No pallor. HEART: Regular S1 and S2. No murmur, rub or gallop. LUNGS: Clear to auscultate bilaterally. ABDOMEN: Soft, nontender and nondistended. Positive bowel sounds. No guarding, rebound or tenderness. CENTRAL NERVOUS SYSTEM: Grossly nonfocal. EXTREMITIES: Lower extremities without edema bilaterally. Data : 06/18/20 04:21 06/18/20 04:21 A&P Assessment and plan (1) Hypertensive urgency: Will titrate off nitro drip will optimize medicine. Continue carvedilol, increase hydralazine to 50 3 times daily continue amlodipine. Status: Acute (2) Acute kidney injury superimposed on chronic kidney disease: Continue holding diuretics Status: Acute (3) Ischemic cardiomyopathy: Echo pending to assess LV function Status: Acute (4) Combined systolic and diastolic cardiac dysfunction: Patient is in compensated state of heart failure, continue holding diuretics Status: Chronic (5) Chest pain: Ruled out for acute coronary syndrome. Mildly elevated cardiac markers could be secondary to hypertensive crisis, since patient has underlying coronary artery disease with prior stent and he has been noncompliant will ask for stress test. Status: Acute Attestations Medical Necessity Statement*: Patient require continuation hospitalization for above defined care. Coding Level of Care Code Established Pt Acute Solar Energy Sales Specialist for Ramana Pillai Patient Type Established History Detailed 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 Medical Decision Making Moderate Complexity Diagnoses Hypertensive urgency I16.0 Acute kidney injury superimposed on chronic kidney disease N17.9; N18.9 Ischemic cardiomyopathy I25.5 Combined systolic and diastolic cardiac dysfunction I51.89 Chest pain R07.9
--- NOTE | 2020-06-18 11:40 | PC.NURSE ---
Notified by geriatric nursing assistant that patient has pulled out his IV nd its dripping on the floor. Went to patient's room and IV velvet was disconnected and patient's IV site was leaking clear fluid. Dressing applied to left antecubital site. New IV started.
[2020-06-18] MEDS: enoxaparin 100 mg/mL Syringe 85 MG SUBCUT (15:58)
[2020-06-18] MEDS: nitroglycerin drip 50 MG/250 ML PREMIX 12 MG IV (17:42)
--- NOTE | 2020-06-18 19:08 | PC.NURSE ---
Received bedside report from SANDRA Betts. Patient resting in bed watching tv. Denies pain or needs at this time. VS set every 15min. Patient on Nitroglycerin drip at 10.5ml/hr. NPO after midnight tonight for possible cardiac stress 06/19/20. IV patient. No s/s of infiltration noted. No other distress observed.
--- NOTE | 2020-06-18 19:53 | USCV_ITS ---
Fredy Hammonds Age: 65 Gender: M : 1955 Exam Date: 06/18/2020 06:20 Ordering Phys: Jessee Michelle DO Technologist: Josey Ramos Exam Location: [facility] [place] Indication: CARDIOMEGALY, CAD BP: 111 / 75 HR: 68 Rhythm: Sinus Technical Quality: Adequate MEASUREMENTS (Male / Female) Normal Values 2D ECHO LV Diastolic Diameter PLAX 4.6 cm 4.2 - 5.9 / 3.9 - 5.3 cm LV Systolic Diameter PLAX 3.8 cm IVS Diastolic Thickness 1.5 cm 0.6 - 1.0 / 0.6 - 0.9 cm IVS Systolic Thickness 1.9 cm LVPW Diastolic Thickness 1.6 cm 0.6 - 1.0 / 0.6 - 0.9 cm LVPW Systolic Thickness 2.2 cm RV Chamber Size 3.1 cm LVOT Diameter 2.0 cm LV Ejection Fraction 2D Teich 36.7 % LV Ejection Fraction MOD 2C 51.4 % LV Ejection Fraction 2C AL 54.1 % LA Diameter 2.8 cm LA Width 4.2 cm LA Height 4.6 cm RA Width 3.8 cm RA Height 4.5 cm Aorta at Sinotubular Diameter 2.9 cm M-MODE LV Diastolic Diameter MM 5.2 cm 4.2 - 5.9 / 3.9 - 5.3 cm LV Systolic Diameter MM 3.9 cm LV Ejection Fraction MM Teich 50.4 % IVS Diastolic Thickness MM 2.2 cm 0.6 - 1.0 / 0.6 - 0.9 cm IVS Systolic Thickness MM 2.6 cm LVPW Diastolic Thickness MM 1.4 cm 0.6 - 1.0 / 0.6 - 0.9 cm LVPW Systolic Thickness MM 1.7 cm Aortic Annulus Diameter 3.0 cm LA Ao Ratio MM 0.9 MV E Point Septal Separation 1.9 cm DOPPLER AV Peak Velocity 127.7 cm/s LVOT Peak Velocity 93.0 cm/s AV Area Cont Eq vti 2.8 cm squared AV Area Cont Eq pk 2.4 cm squared MV Area PHT 2.8 cm squared Mitral E to A Ratio 0.6 MV E' Velocity 23.0 cm/s Mitral E to MV E' Ratio 9.5 Mitral E to LV E' Lateral Ratio 10.4 Mitral E to LV E' Septal Ratio 8.9 TR Peak Velocity 246.3 cm/s TR Peak Gradient 24.3 mmHg Right Atrial Pressure 3.0 mmHg Pulmonary Artery Systolic Pressu 27.3 mmHg PV Peak Velocity 96.0 cm/s RV Acceleration Time 0.1 s RV Ejection Time 0.3 s RV AcT/ET 0.5 FINDINGS Left Ventricle Normal left ventricular cavity size. Mildly reduced left ventricular systolic function. No regional wall motion abnormalities. Left ventricular ejection fraction is estimated at 50 %. Grade I/IV diastolic dysfunction (abnormal relaxation filling pattern), normal to mildly elevated filling pressures. Right Ventricle The right ventricle is normal in size and function. Right Atrium The right atrium is normal in size. Left Atrium The left atrium is normal in size. Mitral Valve Moderately thickened mitral valve. No mitral valve stenosis. Mild mitral valve regurgitation. Aortic Valve Moderate aortic valve calcification. No aortic valve stenosis. Moderate aortic valve regurgitation. There appeared to be thickening of aortic valve cannot rule out vegetation, clinical correlation advised. Tricuspid Valve Structurally normal tricuspid valve without significant stenosis or regurgitation. Pulmonary artery systolic pressure is normal. Pulmonic Valve Structurally normal pulmonic valve without significant stenosis. There is no pulmonic regurgitation. Pericardium Normal pericardium without effusion. Aorta Normal ascending aorta dimension. CONCLUSIONS 1-Normal left ventricular cavity size. Mildly reduced left ventricular systolic function. No regional wall motion abnormalities. Left ventricular ejection fraction is estimated at 50 %. Grade I/IV diastolic dysfunction (abnormal relaxation filling pattern), normal to mildly elevated filling pressures. 2-Moderate aortic valve calcification. No aortic valve stenosis. Moderate aortic valve regurgitation. There appeared to be thickening of aortic valve cannot rule out vegetation, clinical correlation advised. 3-Moderately thickened mitral valve. No mitral valve stenosis. Mild mitral valve regurgitation. 4-There is no pericardial effusion. 5-Pulmonary artery systolic pressure is within normal limits. 6-Right atrial pressure is around 5 mm of mercury. 7-When compared to the prior echocardiogram dated 17 Aug 2019 left ventricle ejection fraction is improved from severely reduced 38% to mildly reduced 50% now. There appeared to be thickening of aortic valve cannot rule out vegetation clinical correlation advised. Sourav Berrios MD (Electronically Signed) Final Date: 18 June 2020 20:20 S
--- NOTE | 2020-06-18 19:55 | US_ITS ---
WS: [id number] RENAL ULTRASOUND REASON FOR EXAM: omid TECHNIQUE: Grayscale and Doppler ultrasound examination of the kidneys. FINDINGS: Right kidney: Right kidney measures 11.5 cm x 5.5 cm x 6.0 cm. No hydronephrosis or calculus identifi ed. Multiple renal cysts, the largest is 2.5 cm in diameter. Left kidney: Left kidney measures 9.1 cm x 3.7 cm x 3.9 cm. Very difficult to image the left kidney. It appears to have several small cysts. No hydronephrosis or calculus was identified. Both kidneys have a heterogeneous echotexture with lack of definition of cortex and medulla. US/US renal BI* [id number] IMPRESSION: No obstructive uropathy. Kidney size is normal. Echotexture suggests diffuse re nal parenchymal disease.
--- NOTE | 2020-06-18 20:23 | PM.PN ---
Subjective Subjective: Interval history: Today he feels little bit better. Denies chest pain. No headache. Concerned about his kidneys. Ready for stress test tomorrow. Medications: Reviewed: Yes Vitals/I&O/Wt Last Vital Signs Temp 98.2 F 06/18/20 15:10 Pulse 93 06/18/20 18:45 Resp 25 H 06/18/20 18:45 BP 125/72 06/18/20 18:45 Pulse Ox 96 06/18/20 15:10 06/18/20 06/18/20 06/18/20 06:59 14:59 22:59 Intake Total 493.475 / 627.600 631.125 / 797.440 0948.675 / 3171.800 Output Total 275 / 275 1000 / 1000 Balance 218.475 / 352.600 -368.875 / -788.903 7698.675 / 2171.800 Weight last 48 hrs Weight 86.183 kg Physical Exam Const: COMMON NORMALS: no acute distress, patient oriented x3 and alert GENERAL APPEARANCE: cooperative and comfortable ORIENTATION/CONSCIOUSNESS: Yes awake HENMT: COMMON NORMALS: oropharynx normal Neck/C-Spine: COMMON NORMALS: no JVD Resp: COMMON NORMALS: normal respiratory effort and clear to auscultation bilaterally AUSCULTATION: clear to auscultation bilaterally Cardio: COMMON NORMALS: no JVD, regular rhythm, S1 normal heart sound present, S2 normal heart sound present and No murmurs present (Cardio) RHYTHM: regular rhythm HEART SOUNDS: S1 normal heart sound present and S2 normal heart sound present GI: COMMON NORMALS: Normal to inspection, nondistended, normoactive bowel sounds present, Soft to palpation and non-tender PALPATION: Yes Soft to palpation Extremity: COMMON NORMALS: no joint enlargement and no pedal edema OTHER: Left shoulder pain on palpation of bicipital tendon, on passive, but full range of motion. Does not appear to be swollen compared to the right. No erythema or warmth. Neuro: COMMON NORMALS: patient oriented x3 and moves all extremities SENSORIUM/ORIENTATION: Yes alert Skin: COMMON NORMALS: no rashes or lesions noted GENERAL SKIN EXAM: no rashes or lesions noted Data : 06/18/20 04:21 06/18/20 04:21 A&P Assessment and plan (1) Angina pectoris: Better today. Blood pressure improving. Weaning off nitroglycerin drip. Appreciate cardiology recommendations. Plan for stress testing tomorrow. N.p.o. after midnight. Continue medications. Noted improvement in EF on echo. EF now up to 50%. Grade 1 diastolic dysfunction. Moderate AVR. Thickening of aortic valve, cannot rule out vegetation, although clinically does not appear to have suggestion of endocarditis. Reassess renal function. In addition appears to also have some issues with left shoulder due to recently hanging sheet rock. Status: Acute (2) Hypertensive urgency: Blood pressure improving. Weaning off nitro drip. Monitor blood pressures. Resume home antihypertensives. Status: Acute (3) Ischemic cardiomyopathy: Status: Acute (4) Combined systolic and diastolic cardiac dysfunction: Recently more shortness of breath, with exertion, possible orthopnea, although says overall does not sleep well. Never sleeps on his back due to chronic back pain. Received fluid challenge in ER. Will hold off additional fluid given history of CHF, now CHF with possible exacerbation. Outwardly does not appear fluid overloaded. Does appear to have some prominence of interstitial lung disease on imaging. Discussed with him x-ray results. Improvement in EF on TTE. Moderate AVR. Thickened valve with inability to exclude vegetation. Will obtain blood culture, although clinically does not appear to have signs of endocarditis or sepsis otherwise. Status: Chronic (5) Acute kidney injury superimposed on chronic kidney disease: Discussed with him regarding chronic kidney disease and no superimposed acute kidney injury. Unclear cause. Possibility from severe hypertension. Also appears to have been taking some sort of pain medication recently, cannot exclude NSAIDs, he does not remember the name states only that it is like aspirin which he has been taking in addition to tramadol. Discussed with him to avoid NSAIDs which may contribute to kidney injury. Will assess kidney ultrasound to exclude obstruction. Assess urine studies. Status: Acute (6) Moderate pulmonary arterial systolic hypertension: Monitor oxygenation, supplemental oxygen as needed. Status: Acute (7) Smoking: Continue to encourage cessation. Status: Acute (8) Left shoulder pain: Reports shoulder pain is little better, but still bothering him with movement. Discussed with him additional imaging by MRI. He request to have MRI done here as due to difficulty with access to health care says may not be able to come back for additional imaging on outpatient side. Will request for inpatient MRI. Reports after recently hanging sheet rock. There is some pain on passive range of motion. Some tenderness on palpation of bicipital tendon. Does not appear to be swollen compared to the right. There is no erythema. No warmth. Status: Acute (9) Interstitial lung disease: With history of pulmonary hypertension. Also noted possibility of interstitial lung disease in right lower lung, becoming more prominent with congestive changes. Discussed with him. Consider PFT after discharge. Consider follow-up with pulmonology. Status: Acute Attestations Medical Necessity Statement*: Continue admission for assessment management of chest pain in gentleman with coronary disease, inconsistent adherence with medications, acute kidney injury, weaning off nitro drip for treatment of severely elevated blood pressure, assessment of left shoulder pain with poor access to healthcare and concern that he will get lost to follow-up. Coding Level of Care Code Acute Director Banking for Ramana Pillai Diagnoses Angina pectoris I20.9 Hypertensive urgency I16.0 Ischemic cardiomyopathy I25.5 Combined systolic and diastolic cardiac dysfunction I51.89 Acute kidney injury superimposed on chronic kidney disease N17.9; N18.9 Moderate pulmonary arterial systolic hypertension I27.21 Smoking F17.200 Left shoulder pain M25.512 Interstitial lung disease J84.9
[2020-06-19] VITALS (36 sets, daily range): BP systolic 92–175; BP diastolic 65–105; PULSE 67–119; RESP 15–28; TEMP 36.8–37.2; O2SAT 94–99
--- NOTE | 2020-06-19 00:21 | PC.NURSE ---
Patient BP decreasing as documented. Decreased nitroglycerin drip to 7.5ml/hr. Patient is resting on right lateral side. Denies discomforts. No distress observed.
--- NOTE | 2020-06-19 00:53 | PC.NURSE ---
Patient bp continues to decrease as documented. Decreased nitroglycerin drip to 6ml/hr at this time. No distress observed.
[2020-06-19] MEDS: acetaminophen 325 mg Tablet 650 MG PO (04:37)
[2020-06-19 05:03] LABS: Basophils % 0.5 %; Eosinophils # 0.1 10^3/uL (0.0-0.8); Eosinophils % 2.4 %; Hematocrit 36.4 % (42.0-52.0); Hemoglobin 12.1 g/dL (11.7-16.6); Lymphocytes # 1.2 10^3/uL (0.8-4.8); Lymphocytes % 22.5 %; Mean Corpuscular HGB Conc 33.2 g/dL (30.0-36.0); Mean Corpuscular Hemoglobin 33.3 pg (28.0-34.0); Mean Corpuscular Volume 100.3 fL (80-94); Mean Platelet Volume 10.8 fL (7.4-10.4); Monocytes # 0.7 10^3/uL (0.2-0.9); Monocytes % 11.8 %; Neutrophils # 3.44 10^3/uL (1.8-7.7); Neutrophils % 62.6 %; Nucleated Red Blood Cells % 0 %; Platelet Count 233 10^3/cmm (130-400); Red Blood Count 3.63 10^6/uL (4.1-5.3); Red Cell Distribution Width 14.1 % (12.1-15.1); White Blood Count 5.5 10^3/uL (4.0-10.0)
[2020-06-19 05:24] LABS: Alanine Aminotransferase 16 U/L (0-41); Albumin Level 2.9 g/dL (3.5-5.2); Alkaline Phosphatase 98 IU/L (40-130); Anion Gap 13.3 (5-19); Aspartate Amino Transferase 24 U/L (0-40); Blood Urea Nitrogen 41 mg/dL (8-23); Calcium 8.1 mg/dL (8.5-10.5); Carbon Dioxide 21 mmol/L (22-29); Chloride 108 mmol/L (98-107); Globulin 3.2 g/dL (1.3-4.6); Glomerular Filtration Rate 23.7 mL/min (90-130); Glucose 102 mg/dL (65-115); Osmolality Calculated 296 mOsm/kg (285-295); Potassium 4.3 mmol/L (3.5-5.1); Sodium 138 mmol/L (136-145); Total Bilirubin 0.2 mg/dL (0.15-1.2); Total Protein 6.1 g/dL (6.6-8.7)
--- NOTE | 2020-06-19 06:00 | ECG_ITS ---
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 The perfusion scan will be documented separately. DATA: Baseline heart rate was 83 beats per minute. Baseline blood pressure was 150/100 millimeters of mercury. Target heart rate was 155. Maximum heart rate achieved was 100. which was 64 % of the predicted target heart rate. Maximum blood pressure was 156/110 millimeters of mercury. The reason for ending the test was completion of the protocol. The patient did not experience any symptoms. ELECTROCARDIOGRAM: BASELINE: Sinus rhythm. Normal axis. Left ventricular hypertrophy, inferolateral inverted T wave could be repolarization abnormality cannot rule out ischemia EXERCISE: After Lexiscan injection, no ST-T changes suggestive of ischemic noted. No arrhythmia noted. CONCLUSION: Please note due to baseline abnormality of the EKG specificity and sensitivity of the EKG portion of LexiScan MIBI stress test will be low 1. EKG not suggestive of ischemia 2. Lexiscan injection unremarkable. 3. Perfusion scan will be documented separately. Electronically Signed On 06-22-2020 20:32:29 CDT by MIKEY JONES [id number]
[2020-06-19] MEDS: regadenoson 0.4 Mg/5 ml Syringe IVP (08:40)
[2020-06-19] MEDS: clopidogrel 75 mg Tablet PO (08:41)
[2020-06-19] MEDS: carvedilol 12.5 mg Tablet PO ×2 (08:42→17:39)
[2020-06-19] MEDS: hyDRALAzine 50 mg Tablet PO ×3 (08:42→20:26)
[2020-06-19] MEDS: amlodipine 10 mg Tablet PO (08:42)
[2020-06-19] MEDS: aspirin 325 mg Tablet PO (08:42)
[2020-06-19] MEDS: isosorbide mononitrate ER 30 mg Tablet PO (08:42)
[2020-06-19] MEDS: tamsulosin 0.4 mg Capsule PO (08:42)
--- NOTE | 2020-06-19 08:57 | PC.NURSE ---
off unit to [employer] for cardiac stress test. ushered by [employer] via wheelchair.
--- NOTE | 2020-06-19 09:28 | PC.NURSE ---
off unit back to [facility] for stress test
--- NOTE | 2020-06-19 14:30 | MR_ITS ---
WS: [id number] MRI LEFT SHOULDER NONCONTRAST TECHNIQUE: Sagittal T2, coronal T1, T2 and proton density imaging. Axial gradient PDE imaging. CLINICAL INFORMATION: L side shoulder, chest pain, possible injury COMPARISON: None. FINDINGS: Moderate to advanced arthritis AC joint with mild edema. Mild downsloping of the acromion with narrow ing of the subacromial space. High-grade full-thickness tear of the supraspinatus with tendon retract ion. Tendon retraction measures approximately 3 to 4 cm. Tendinopathy involving the infraspinatus whi ch appears intact. Tiny intrasubstance tear involving the infraspinatus with an additional small inse rtional tear. Normal teres minor. Small subcoracoid effusion. Subscapularis tendon appears intact. Normal biceps te ndon in the bicipital groove. Normal biceps labral anchor. Degenerative fraying of the glenoid labrum . Moderate degenerative arthritis of the glenohumeral joint with subchondral cystic change involving the greater tuberosity. MR/MR shoulder LT wo con* [id number] IMPRESSION: 1. High-grade full-thickness tear involving the supraspinatus with tendon retr action measuring 3 to 4 mm. 2. Tendinopathy with small intrasubstance tear involving the distal infraspina tus with a tiny insertional tear. 3. Rotator cuff is otherwise intact. 4. Normal biceps tendon in the bicipital groove. 5. Moderate degenerative arthritis at the AC joint with subacromial and subdel toid fluid.
[2020-06-19] MEDS: enoxaparin 100 mg/mL Syringe 85 MG SUBCUT (14:37)
--- NOTE | 2020-06-19 14:39 | PC.NURSE ---
Patient IV catheter was removed. Pt cath tip intact. no bleeding noted. Doctor notified.
--- NOTE | 2020-06-19 16:32 | NMCV_ITS ---
NM natty perf SPECT r/s* [id number] Fredy Hammonds Age: 65 Gender: M : 1955 Exam Date: 06/19/2020 07:37 Ordering Phys: Andrews Amaya MD Technologist: TOMMY Sanches Exam Location: [facility] Indications: CHEST PAIN STRESS TEST Please see separate stress test report in [facility] for full findings IMAGE PROTOCOL Rest/Stress 1 Lexiscan Day Radiopharmaceutical Dose (mCi) Administration Site Administered by Rest: Tc-99m 11.0 IV TOMMY Sanches Sestamibi Stress:Tc-99m 32.8 IV TOMMY Soler Sestamibi Rest: 19-Jun-2020 60 Discovery 630 Stress: 19-Jun-2020 30 Discovery 630 0.4mg Lexiscan. Images obtained in supine and prone position. SPECT RESULTS Technical Quality: Excellent Raw Data Analysis: Normal Image Corrections: No attenuation or motion correction applied Summed Stress Score: 5 Summed Rest Score: 11 Summed Difference Score: 0 PERFUSION FINDINGS Large area of fixed perfusion defect noted in basal to distal inferior and inferolateral wall on both rest and stress images suggestive of old myocardial infarction. FUNCTIONAL RESULTS (calculated via Gated SPECT) Stress Image LV EF (%): 47 Stress EDV (mL):203 TID: 1.04 Stress ESV (mL):108 Rest Image LV EF (%): 47 FUNCTIONAL FINDINGS: Basal to distal inferior and inferolateral wall severe hypokinesis IMPRESSIONS Large area of old myocardial infarction versus scarring noted in the basal to distal inferior and inferolateral wall. No ischemia detected on the study. EKG segment will be documented separately Sourav Berrios MD (Electronically Signed) Final Date: 19 June 2020 19:18 S
--- NOTE | 2020-06-19 19:57 | PC.NURSE ---
Received bedside report from SANDRA Walters. Patient resting in bed Nitroglycerin is turned off. Patient has removed his IV. Dr Beckett is aware and received ok to leave out for now probably be discharged tomorrow. Patient up to shower at this time.
--- NOTE | 2020-06-19 20:11 | PM.PN ---
Subjective Subjective: Interval history: Denies chest pain during stress test. Currently doing well. Breathing comfortably. Blood pressure has been improving. Has been weaning down on nitroglycerin drip. Vitals/I&O/Wt Last Vital Signs Temp 98.3 F 06/19/20 19:43 Pulse 69 06/19/20 19:43 Resp 18 06/19/20 19:43 BP 141/82 06/19/20 19:43 Pulse Ox 96 06/19/20 15:11 06/19/20 06/19/20 06/19/20 06:59 14:59 22:59 Intake Total 69.275 / 3481.075 308.950 / 308.950 0 / 308.950 Output Total 450 / 2150 600 / 600 Balance -380.725 / 1331.075 -291.050 / -291.050 0 / -291.050 Physical Exam Const: COMMON NORMALS: no acute distress, patient oriented x3 and alert GENERAL APPEARANCE: cooperative and comfortable ORIENTATION/CONSCIOUSNESS: Yes awake HENMT: COMMON NORMALS: oropharynx normal Neck/C-Spine: COMMON NORMALS: no JVD Resp: COMMON NORMALS: normal respiratory effort and clear to auscultation bilaterally AUSCULTATION: clear to auscultation bilaterally Cardio: COMMON NORMALS: no JVD, regular rhythm, S1 normal heart sound present, S2 normal heart sound present and No murmurs present (Cardio) RHYTHM: regular rhythm HEART SOUNDS: S1 normal heart sound present and S2 normal heart sound present GI: COMMON NORMALS: Normal to inspection, nondistended, normoactive bowel sounds present, Soft to palpation and non-tender PALPATION: Yes Soft to palpation Extremity: COMMON NORMALS: no joint enlargement and no pedal edema OTHER: Left shoulder pain on palpation of bicipital tendon, on passive, but full range of motion. Does not appear to be swollen compared to the right. No erythema or warmth. Neuro: COMMON NORMALS: patient oriented x3 and moves all extremities SENSORIUM/ORIENTATION: Yes alert Skin: COMMON NORMALS: no rashes or lesions noted NARRATIVE SKIN EXAM: Tattoos GENERAL SKIN EXAM: no rashes or lesions noted Data : 06/19/20 04:28 06/19/20 04:28 Micro: Microbiology 06/18/20 21:13 Blood Culture - Preliminary Blood SPECIMEN COLLECTED 06/18/20 21:09 Blood Culture - Preliminary Blood SPECIMEN COLLECTED A&P Assessment and plan (1) Angina pectoris: Underwent stress test today. Was not having any chest pain. Stress test just read coming back with large area of old infarction, no acute ischemia. Needs to continue to optimize risk factors of CAD. Noted improvement in EF on echo. EF now up to 50%. Grade 1 diastolic dysfunction. Moderate AVR. Thickening of aortic valve, cannot rule out vegetation, although clinically does not appear to have suggestion of endocarditis. Blood cultures pending, negative so far. Torn supraspinatus muscle noted on MRI shoulder. Moderate arthritis of the joint. Appears he sustained some injury contributing to his symptoms. Status: Acute (2) Hypertensive urgency: Weaning down on nitroglycerin drip today. Continue oral blood pressure medications. Monitor. If remains stable, potential discharge with outpatient follow-up tomorrow. Would benefit from home health checkups on his blood pressure, teaching on monitoring, medications, assessments and adherence. Status: Acute (3) Ischemic cardiomyopathy: Status: Acute (4) Combined systolic and diastolic cardiac dysfunction: Recently more shortness of breath, with exertion, possible orthopnea, although says overall does not sleep well. Never sleeps on his back due to chronic back pain. Received fluid challenge in ER. Will hold off additional fluid given history of CHF, now CHF with possible exacerbation. Outwardly does not appear fluid overloaded. Does appear to have some prominence of interstitial lung disease on imaging. Discussed with him x-ray results. Improvement in EF on TTE. Moderate AVR. Thickened valve with inability to exclude vegetation. Pending blood culture, although clinically does not appear to have signs of endocarditis or sepsis otherwise. Status: Chronic (5) Acute kidney injury superimposed on chronic kidney disease: Creatinine appears stabilized around 3, today a little bit worse at 3.2. I am concerned this may be progression of his chronic kidney disease. Discussed with him again importance of optimization of blood pressure control, avoidance of other risks to progression of kidney disease. Avoidance of NSAIDs. Chronic kidney disease noted on ultrasound. Status: Acute (6) Moderate pulmonary arterial systolic hypertension: Monitor oxygenation, supplemental oxygen as needed. Status: Acute (7) Smoking: Continue to encourage cessation. Status: Acute (8) Left shoulder pain: Continues to have pain. MRI showing torn supraspinatus, moderate arthritis. Will give referral for follow-up with orthopedics. Reports after recently hanging sheet rock. There is some pain on passive range of motion. Some tenderness on palpation of bicipital tendon. Does not appear to be swollen compared to the right. There is no erythema. No warmth. Status: Acute (9) Interstitial lung disease: With history of pulmonary hypertension. Also noted possibility of interstitial lung disease in right lower lung, becoming more prominent with congestive changes. Discussed with him. Consider PFT after discharge. Consider follow-up with pulmonology. Status: Acute Attestations Medical Necessity Statement*: Continue admission for optimization of severe uncontrolled hypertension, weaning off nitroglycerin drip, monitoring with optimization of oral therapy, preparations for discharge. Coding Level of Care Code Acute Cook 3 Pastry for [facility] Fwd Diagnoses Angina pectoris I20.9 Hypertensive urgency I16.0 Ischemic cardiomyopathy I25.5 Combined systolic and diastolic cardiac dysfunction I51.89 Acute kidney injury superimposed on chronic kidney disease N17.9; N18.9 Moderate pulmonary arterial systolic hypertension I27.21 Smoking F17.200 Left shoulder pain M25.512 Interstitial lung disease J84.9
--- NOTE | 2020-06-19 20:38 | PM.PN ---
Subjective Subjective: Interval history: Denies any chest pain blood pressure is under control stress test is negative for ischemia. Patient had MRI done which showed injury to the left shoulder. Medications: Reviewed: Yes Vitals/I&O/Wt Last Vital Signs Temp 98.3 F 06/19/20 19:43 Pulse 69 06/19/20 19:43 Resp 18 06/19/20 19:43 BP 141/82 06/19/20 19:43 Pulse Ox 96 06/19/20 15:11 06/19/20 06/19/20 06/19/20 06:59 14:59 22:59 Intake Total 69.275 / 3481.075 308.950 / 308.950 0 / 308.950 Output Total 450 / 2150 600 / 600 Balance -380.725 / 1331.075 -291.050 / -291.050 0 / -291.050 Physical Exam Narrative: EXAM NARRATIVE: GENERAL: Patient is alert, awake and oriented x3. NECK: No jugular vein distension. HEENT: No cyanosis. No icterus. No pallor. HEART: Regular S1 and S2. No murmur, rub or gallop. LUNGS: Clear to auscultate bilaterally. ABDOMEN: Soft, nontender and nondistended. Positive bowel sounds. No guarding, rebound or tenderness. CENTRAL NERVOUS SYSTEM: Grossly nonfocal. EXTREMITIES: Lower extremities without edema bilaterally. Data : 06/19/20 04:28 06/19/20 04:28 Micro: Microbiology 06/18/20 21:13 Blood Culture - Preliminary Blood SPECIMEN COLLECTED 06/18/20 21:09 Blood Culture - Preliminary Blood SPECIMEN COLLECTED A&P Assessment and plan (1) Hypertensive urgency: Well-controlled now continue to optimize medicine Status: Acute (2) Acute kidney injury superimposed on chronic kidney disease: Continue holding diuretics Status: Acute (3) Ischemic cardiomyopathy: Left ventricle ejection fraction actually has improved from severely depressed 38% to mildly depressed 50% now. There is moderate AI and mild mitral regurgitation. Overall there is improvement in the left ventricle function. Continue to optimize the medicine advised patient to be compliant with the medicine he was not taking the medicine Status: Acute (4) Combined systolic and diastolic cardiac dysfunction: Well compensated. Continue meds Status: Chronic (5) Chest pain: Noncardiac most likely due to tear of the left shoulder and injury to the muscle while patient was lifting heavy sheets. Stress test was negative. Status: Acute Attestations Medical Necessity Statement*: As per medicine Coding Level of Care Code Established Pt Acute Used [employer] for [employer] F[employer] Patient Type Established History Expanded Problem Focused Exam Expanded Problem Focused Medical Decision Making Moderate Complexity Diagnoses Hypertensive urgency I16.0 Acute kidney injury superimposed on chronic kidney disease N17.9; N18.9 Ischemic cardiomyopathy I25.5 Combined systolic and diastolic cardiac dysfunction I51.89 Chest pain R07.9
[2020-06-20] VITALS: BP 137/78; PULSE 74; RESP 21
--- NOTE | 2020-06-20 01:14 | PC.NURSE ---
Patient awake and restless. Patient stated, I have many nights that I don't sleep at home. Patient is in good spirits but aggravated he can't sleep.
[2020-06-20 03:02] VITALS: BP 133/83; PULSE 75; RESP 20; TEMP 37.7; O2SAT 98
[2020-06-20 04:52] LABS: Basophils % 0.6 %; Eosinophils # 0.2 10^3/uL (0.0-0.8); Hematocrit 37.9 % (42.0-52.0); Hemoglobin 12.4 g/dL (11.7-16.6); Lymphocytes # 1.5 10^3/uL (0.8-4.8); Lymphocytes % 29.9 %; Mean Corpuscular HGB Conc 32.7 g/dL (30.0-36.0); Mean Corpuscular Hemoglobin 32.5 pg (28.0-34.0); Mean Corpuscular Volume 99.5 fL (80-94); Mean Platelet Volume 10.7 fL (7.4-10.4); Monocytes # 0.6 10^3/uL (0.2-0.9); Monocytes % 12.2 %; Neutrophils # 2.65 10^3/uL (1.8-7.7); Neutrophils % 53.9 %; Nucleated Red Blood Cells % 0 %; Platelet Count 238 10^3/cmm (130-400); Red Blood Count 3.81 10^6/uL (4.1-5.3); Red Cell Distribution Width 14.3 % (12.1-15.1); White Blood Count 4.9 10^3/uL (4.0-10.0)
[2020-06-20 05:11] LABS: Alanine Aminotransferase 23 U/L (0-41); Albumin Level 2.7 g/dL (3.5-5.2); Alkaline Phosphatase 100 IU/L (40-130); Anion Gap 15.6 (5-19); Aspartate Amino Transferase 42 U/L (0-40); Blood Urea Nitrogen 47 mg/dL (8-23); Calcium 8.3 mg/dL (8.5-10.5); Carbon Dioxide 21 mmol/L (22-29); Chloride 108 mmol/L (98-107); Globulin 3.5 g/dL (1.3-4.6); Glomerular Filtration Rate 22.9 mL/min (90-130); Glucose 98 mg/dL (65-115); Osmolality Calculated 302 mOsm/kg (285-295); Potassium 4.6 mmol/L (3.5-5.1); Sodium 140 mmol/L (136-145); Total Bilirubin 0.2 mg/dL (0.15-1.2); Total Protein 6.2 g/dL (6.6-8.7)
[2020-06-20 05:54] VITALS: PULSE 68
[2020-06-20 07:21] VITALS: BP 136/95; PULSE 69; RESP 17; TEMP 36.4; O2SAT 98
[2020-06-20 08:25] VITALS: PULSE 77; RESP 17; O2SAT 98
[2020-06-20] MEDS: aspirin 325 mg Tablet PO (09:24)
[2020-06-20] MEDS: clopidogrel 75 mg Tablet PO (09:24)
[2020-06-20] MEDS: isosorbide mononitrate ER 30 mg Tablet PO (09:24)
[2020-06-20] MEDS: tamsulosin 0.4 mg Capsule PO (09:24)
[2020-06-20] MEDS: amlodipine 10 mg Tablet PO (09:24)
[2020-06-20] MEDS: carvedilol 12.5 mg Tablet PO (09:24)
[2020-06-20] MEDS: hyDRALAzine 50 mg Tablet PO (09:25)
--- NOTE | 2020-06-20 09:27 | DCPLANNER ---
IMM completed on 06/20/20 @ 0902. Copy of rights given to pt.
[2020-06-20] MEDS: acetaminophen 325 mg Tablet 650 MG PO (10:43)
--- NOTE | 2020-06-20 10:59 | P.DS_ITS ---
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 Required treatment with both oral medications, and also nitroglycerin drip to bring her blood pressure down. Was assessed by cardiology, with additional assessment by troponin EKG series, with troponin moderately elevated, without peak, with echocardiogram showing improvement in ejection fraction up to 50%, grade 1 diastolic dysfunction, moderate aortic valve regurgitation, thickening of the aortic valve, based on imaging vegetation cannot be ruled out, moderately thickened mitral valve, mild MVR, with improvement in ejection fraction from 38% prior. He did not have noted symptoms of endocarditis, blood cultures were collected, final results will need to be followed up so far preliminary negative. And he is asked to follow-up with cardiology in office. With chest pain, troponin elevation, history of CAD he was additionally assessed by stress testing which showed area of large prior infarction, but no acute ischemia. His blood pressure regimen was optimized with increasing hydralazine dose to 50 mg 3 times daily, with improvement in blood pressures to 130s over 7 0s-90s. He was counseled extensively to continue monitoring blood pressure at home, as well as on adherence with his medications, and we discussed risks of very high blood pressures, persistent hypertension, cardiovascular risks, as well as risks to progression of kidney disease, additional complications, disability and . He was also counseled on avoidance of NSAIDs. He will be referred for follow-up with nephrology. On presentation he was also noting pain in his left shoulder after recently hanging some sheet rock. Due to persistent pain and concern that he would not come back for follow-up imaging he was additionally assessed by MRI of the shoulder with finding of supraspinatus tear and at least moderate arthritis. Due to this he is referred for additional follow-up with orthopedics in office as discussed with him. With noted possible signs of interstitial lung disease in right lower lung, although this appears to be becoming more prominent when he is in heart failure, he is additionally referred for assessment by pulmonary function testing. Consider referral to pulmonology depending on results. He was counseled on several occasions regarding smoking cessation. Please continue to encourage and assist him with this difficult task. Please see full study results and documentation for details. Do not hesitate to reach out with questions. Physical Exam Narrative: EXAM NARRATIVE: He is in good spirits today. Asking to be discharged. Denies any discomfort. Const: COMMON NORMALS: no acute distress, patient oriented x3 and alert GENERAL APPEARANCE: cooperative and comfortable ORIENTATION/CONSCIOUSNESS: Yes awake HENMT: COMMON NORMALS: oropharynx normal Neck/C-Spine: COMMON NORMALS: no JVD Resp: COMMON NORMALS: normal respiratory effort and clear to auscultation bilaterally AUSCULTATION: clear to auscultation bilaterally Cardio: COMMON NORMALS: no JVD, regular rhythm, S1 normal heart sound present, S2 normal heart sound present and No murmurs present (Cardio) RHYTHM: regular rhythm HEART SOUNDS: S1 normal heart sound present and S2 normal heart sound present GI: COMMON NORMALS: Normal to inspection, nondistended, normoactive bowel sounds present, Soft to palpation and non-tender PALPATION: Yes Soft to palpation Extremity: COMMON NORMALS: no joint enlargement and no pedal edema OTHER: Left shoulder pain on palpation of bicipital tendon, on passive, but full range of motion. Does not appear to be swollen compared to the right. No erythema or warmth. Neuro: COMMON NORMALS: patient oriented x3 and moves all extremities SENSORIUM/ORIENTATION: Yes alert Skin: COMMON NORMALS: no rashes or lesions noted NARRATIVE SKIN EXAM: Tattoos GENERAL SKIN EXAM: no rashes or lesions noted Discharge Data Data Completed and Pending: Completed Studies During Hospitalization Category Date Time Status Sestamibi Stress Test Request Stacey ne Exams 06/19/20 06:00 Draft XR chest 1V sandra ble [id number] Urgent Exams 06/17/20 14:53 Completed MR shoulder LT wo con* [id number] Routin e MRI 06/19/20 14:30 Completed NM natty perf SPECT r/s* [id number] Routin e Nuc Med 06/19/20 16:32 Completed CV echo complete* [id number] Routine Ultrasound 06/18/20 19:53 Completed US renal BI* [id number] Routine Ultrasound 06/18/20 19:55 Completed Pending at discharge Category Date Time Status Sestamibi Stress Test Request Routi ne Exams 06/18/20 16:32 Stop Req Blood Culture Sta t Lab 06/18/20 21:13 Results Complete Blood Co unt w/Auto AM LABS Lab 06/21/20 04:00 Ordered Comprehensive Met abolic Panel AM LA BS Lab 06/21/20 04:00 Ordered Urea Nitrogen,Uri ne Random Routine Lab 06/17/20 19:57 Ordered Urine Random Sodi um Routine Lab 06/17/20 19:57 Ordered Labs from last 24 hours 06/20/20 06/20/20 04:29 04:29 WBC 4.9 RBC 3.81 L Hgb 12.4 Hct 37.9 L MCV 99.5 H MCH 32.5 MCHC 32.7 RDW 14.3 Plt Count 238 MPV 10.7 H Neut % (Auto) 53.9 Lymph % (Auto) 29.9 [place] % (Auto) 12.2 Eos % (Auto) 3.0 Baso % (Auto) 0.6 Neut # (Auto) 2.65 Lymph # (Auto) 1.5 [place] # (Auto) 0.6 Eos # (Auto) 0.2 Baso # (Auto) 0.0 Nucleated RBC % (a uto) 0 Nucleated RBCs # 0.0 Sodium 140 Potassium 4.6 Chloride 108 H Carbon Dioxide 21 L Anion Gap 15.6 BUN 47 H Creatinine 3.3 H GFR Calculation 22.9 L Glucose 98 Calculated Osmolal ity 302 H Calcium 8.3 L Total Bilirubin 0.2 AST 42 H ALT 23 Alkaline Phosphata se 100 Total Protein 6.2 L Albumin 2.7 L Globulin 3.5 Vitals: Last Vital Signs Temp 97.6 F 06/20/20 07:21 Pulse 77 06/20/20 08:25 Resp 17 06/20/20 08:25 BP 136/95 06/20/20 07:21 Pulse Ox 98 06/20/20 08:25 Discharge Plan Discharge Patient Disposition: Home Health Service Condition: Stable Prescriptions: Continued isosorbide mononitrate 30 mg tablet extended release 24 hr 30 mg PO DAILY Qty: 90 RF: 2 albuterol sulfate 90 mcg/actuation HFA aerosol inhaler 2 inh INHALATION Q4H PRN (Reason: shortness of breath or wheezing) RF: 0 aspirin [Adult Aspirin Regimen] 81 mg tablet,delayed release (DR/EC) 81 mg PO DAILY RF: 0 carvedilol 12.5 mg tablet 12.5 mg PO BID RF: 0 amlodipine 10 mg tablet 10 mg PO DAILY Qty: 90 RF: 3 tramadol 50 mg tablet 50 mg PO Q12H PRN (Reason: pain) 30 Days Qty: 45 RF: 0 Nitrostat 0.4 mg tablet, sublingual 0.4 mg SUBLINGUAL Q5M PRN (Reason: Chest Pain) Qty: 25 RF: 0 fluticasone propion-salmeterol [Wixela Inhub] 250-50 mcg/dose Blister With Device 2 inh INHALATION BID PRN (Reason: UNKNOWN) RF: 0 clopidogrel 75 mg tablet 75 mg PO DAILY Qty: 90 RF: 4 tamsulosin 0.4 mg capsule 0.4 mg PO DAILY RF: 0 keahzkc-sayhsqxagracw-mtieeirv 250-250-65 mg Tablet 1 tab PO Q6H PRN (Reason: PAIN/CHEST PAIN) RF: 0 Changed hydralazine 25 mg tablet 50 mg PO TID Qty: 180 RF: 0 furosemide 40 mg tablet 40 mg PO DAILY PRN (Reason: Edema) Qty: 0 RF: 0 potassium chloride 20 mEq tablet extended release 10 meq PO DAILY Qty: 0 RF: 0 Discharge Orders: Discharge Order (Routine); Ordered 06/20/20 Ordered By: Andrews Amaya Other Ambulatory Orders: Pulmonary Function Screen with Bronchodilator (Routine) Timeframe: 2 Weeks Facility: [facility] - Location: Respiratory Therapy Ordered By: Andrews Amaya Referrals: Nephrology [Provider Group] - 2 weeks (CKD progression) [facility] [Provider Group] - 2 weeks (L shoulder injury, pain, supraspinatus tear, arthritis) Jane Vega MD [Primary Care Provider] - 4-7 days Sourav Berrios MD [Physician] - 1 month Grazyna Florian FNP [Nurse Practitioner] - 1 week (YOU HAVE A FOLLOW UP APPOIMENT WITH FANTASMA ALEXSANDRA ON June AT 200 PM IF YOU HAVE ANY QUESTIONS PLEASE CALL [phone].) Discharge Diet: Cardiac Discharge Activity: Increase activity as tolerated and Limit activity as instructed Activity Restrictions/Additional Instructions: Please stop smoking. Please avoid any medications like ibuprofen, Aleve, or similar NSAIDs. These may cause further injury to your kidneys. Please follow-up with the kidney specialist due to chronic kidney disease which appears to be progressing. Please continue to work to improve control of your elevated blood pressures. Uncontrolled hypertension may contribute to progression of kidney disease, heart failure. Please monitor your blood pressure at home at least twice daily, write down values to bring to your appointment. If your blood pressure is elevated significantly, with top number above 190 or bottom number above 100, please seek medical attention in the emergency room without delay. You are referred for pulmonary function test to further assess lung function, and with concern of possibly some scarring or interstitial lung disease in the right lower lung. Please discuss results with your primary care doctor. 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 You are also referred for follow-up with orthopedics due to torn muscle in your left shoulder. Please avoid additional injury. Discussed with your primary care doctor. Discharge Attestations Time Spent in Discharge Care*: greater than 30 min Quality Metrics Clinical Quality Measures During this hospital stay, did patient experience: None Coding Level of Care Code Acute Chg FW DC note Diagnoses Hypertensive urgency I16.0 Acute kidney injury superimposed on chronic kidney disease N17.9; N18.9 Ischemic cardiomyopathy I25.5 Combined systolic and diastolic cardiac dysfunction I51.89 Chest pain R07.9
--- NOTE | 2020-06-20 12:34 | PC.CHAP ---
Pastoral Care Encounter/Spiritual Assessment Type of Contact [] Declined clinical exercise physiologist visit [] Patient/Family/Request visit [] Outpatient visit [] Follow-up visit [] Physician referral [] Code/Alert [xx] Routine visit [] Staff referral [] Actively dying [] Patient sleeping [] Family support [] [] Out of room [] Palliative care [] [] Receiving care in room [] Pre-surgical visit [] Trauma [] Long length of stay [] ICU visit [] Other: Relational/Emotional Strength [xx] Patient feels connected with others/family/visitors/staff [] Distress [] Loneliness/isolation [] Abandonment Spirituality of Patient [xx] Person of Shamika [] Attends Jewish of their Shamika [xx] Believes in Prayer [xx] Reads Bible or Rastafarian materials [] There are Spiritual issues to be addressed Veterinary Practice Manager Interventions [xx] Prayer [xx] Active listening [xx] Non-anxious presence [] Spiritual/emotional support [] Crisis/trauma care [] Spiritual counseling [] Bereavement support [] Provided bereavement packet [] Provided Bible/devotional materials [] Provided toy/stuffed animal, coloring book to patient or family member [] Provided Communion [] Anointing/[place] [] Salvation [xx] Completed spiritual assessment [] Other: Impact on Illness or Injury [] Angry [] Fearful [] Anxious [] Often cries [] Exhaustion [] Unable to work [] Unable to attend judaism [] Unable to walk/stand [] Unable to read [] Unable to drive [] Unable to eat/drink [] Unable to sleep [] Unable to be with family [] Patient intubated [] Other: Summary Patient stated he is feeling better. He wanted prayer but not lengthy visit. He accepted [employer] Daily [employer] devotional. Time spent with patient 3 minutes
[2020-06-20 13:06] VITALS: PULSE 77; RESP 17; O2SAT 98
--- NOTE | 2020-06-20 13:50 | PM.PN ---
Subjective Subjective: Interval history: Feeling better. Denies any complaint. Medications: Reviewed: Yes Vitals/I&O/Wt Last Vital Signs Temp 97.6 F 06/20/20 07:21 Pulse 77 06/20/20 13:06 Resp 17 06/20/20 13:06 BP 136/95 06/20/20 07:21 Pulse Ox 98 06/20/20 13:06 06/19/20 06/20/20 06/20/20 22:59 06:59 14:59 Intake Total 0 / 308.950 480 / 480 Output Total 550 / 1150 Balance 0 / -291.050 -550 / -841.050 480 / 480 Physical Exam Narrative: EXAM NARRATIVE: GENERAL: Patient is alert, awake and oriented x3. NECK: No jugular vein distension. HEENT: No cyanosis. No icterus. No pallor. HEART: Regular S1 and S2. No murmur, rub or gallop. LUNGS: Clear to auscultate bilaterally. ABDOMEN: Soft, nontender and nondistended. Positive bowel sounds. No guarding, rebound or tenderness. CENTRAL NERVOUS SYSTEM: Grossly nonfocal. EXTREMITIES: Lower extremities without edema bilaterally. Data : 06/20/20 04:29 06/20/20 04:29 Micro: Microbiology 06/18/20 21:13 Blood Culture - Preliminary Blood NEGATIVE TO DATE 06/18/20 21:09 Blood Culture - Preliminary Blood NEGATIVE TO DATE A&P Assessment and plan (1) Hypertensive urgency: Switch to p.o. medicine it is well controlled now Status: Acute (2) Acute kidney injury superimposed on chronic kidney disease: Reduced air Lasix dose to 40 mg once a day with 10 meq of potassium Status: Acute (3) Ischemic cardiomyopathy: Stress test negative continue current regimen patient advised to go back on his meds. We will optimize medicine before discharge Status: Acute (4) Combined systolic and diastolic cardiac dysfunction: Well compensated. Will start him back on his medicine. Status: Chronic (5) Chest pain: Nonischemic chest pain most likely due to left shoulder injury patient will follow up with orthopedics. Status: Acute Attestations Medical Necessity Statement*: Patient require continuation hospitalization for above defined care. Coding Level of Care Code Established Pt Acute Surgical Physician Assistant for Jacquesg Fwd Patient Type Established History Expanded Problem Focused Exam Expanded Problem Focused Medical Decision Making Moderate Complexity Diagnoses Hypertensive urgency I16.0 Acute kidney injury superimposed on chronic kidney disease N17.9; N18.9 Ischemic cardiomyopathy I25.5 Combined systolic and diastolic cardiac dysfunction I51.89 Chest pain R07.9
--- NOTE | 2020-06-20 14:56 | PC.NURSE ---
discharge instructions given and explained.pt verb understanding of instructions.reiterated impt of smoking cessation and taking medications regularly.also impt of attending all scedualed md visits.discharged at 12:00 .pt friend to drive him home
--- NOTE | 2020-06-25 12:34 | PC.SOCIAL ---
[facility] called to report out 1 of 4 blood cultures positive with Micrococcus species. Notified Dr Amaya and he indicates this is not a pathogen and no further orders needed other than to update patient and his primary care provider. Email sent to Dr Vega who is PCP and called patient to update him. He understands that this is a probable contaminant but can discuss further with PCP. He verbalized understanding and had no further questions.
== END 2020-06-20 12:00 | disposition home health service (06) | DRG 305 ==
LOC: ER 16:59 → CSU 17:23
PROVIDERS: Physician Assistant; Admitting Provider Internal Medicine; Emergency Provider Family Medicine; PCP Family Medicine; Visit Provider Internal Medicine
DX: I16.0 Hypertensive urgency (principal); N18.4 Chronic kidney disease, stage 4 (severe); N17.9 Acute kidney failure, unspecified; J84.9 Interstitial pulmonary disease, unspecified; I50.42 Chronic combined systolic (congestive) and diastolic (congestive) heart failure; I25.10 Atherosclerotic heart disease of native coronary artery without angina pectoris; Z95.5 Presence of coronary angioplasty implant and graft; I13.0 Hypertensive heart and chronic kidney disease with heart failure and stage 1 through stage 4 chronic kidney disease, or unspecified chronic kidney disease; Z86.711 Personal history of pulmonary embolism; I27.20 Pulmonary hypertension, unspecified; F17.210 Nicotine dependence, cigarettes, uncomplicated; N40.0 Benign prostatic hyperplasia without lower urinary tract symptoms; R97.20 Elevated prostate specific antigen [PSA]; E78.5 Hyperlipidemia, unspecified; I25.5 Ischemic cardiomyopathy; I35.1 Nonrheumatic aortic (valve) insufficiency; G89.29 Other chronic pain; M54.9 Dorsalgia, unspecified; M25.512 Pain in left shoulder; Z79.82 Long term (current) use of aspirin; M19.012 Primary osteoarthritis, left shoulder; M75.102 Unspecified rotator cuff tear or rupture of left shoulder, not specified as traumatic; I25.2 Old myocardial infarction; Z91.14 Patient's other noncompliance with medication regimen
CPT/HCPCS: 36415; 71045; 73221; 76770; 76857; 78452; 80048; 80053; 83880; 84484; 85025; 87040; 87205; 93005; 93017; 93306; 94640; 96365; 96366; 96372; 96375; 99291; A9500; J1650; J2270; J2785; J3490; P9047

== ENCOUNTER → 2020-07-04 16:38 | Outpatient (BNVA) | payer MEDICARE, SELFPAY | PROVIDERS: PCP Family Medicine; Visit Provider Internal Medicine | DX: Z20.822 Contact with and (suspected) exposure to COVID-19 (principal) | CPT/HCPCS: 87635 ==

== ENCOUNTER 2020-07-08 08:56 | Outpatient (CLI) | payer MEDICARE, SELFPAY ==
--- NOTE | 2020-07-08 10:11 | XRR_ITS ---
PROCEDURE INFORMATION: Exam: XR Left Shoulder Exam date and time: 07/08/2020 10:12 AM Age: 65 years old Clinical indication: Pain; Shoulder; Left; Additional info: M25.512 - pain in left shoulder TECHNIQUE: Imaging protocol: XR Left shoulder. Views: 2 or more views. COMPARISON: MR shoulder LT wo con* [id number] 06/19/2020 12:03 PM FINDINGS: Bones/joints: No fracture or other acute abnormalities are seen. Minimal degenerative disease is present with tiny osteophyte formation on the glenoid. The joint spaces are not significantly narrowed. Soft tissues: Normal. XR/XR shoulder LT min 2V* [id number] IMPRESSION: Minimal degenerative disease. No acute abnormality.
--- NOTE | 2020-07-08 13:19 | PFTS_ITS ---
Date of Study:07/08/20 Date of Dictation: MECHANICS: Forced vital capacity (FVC) is normal. Forced expiratory volume in one second (FEV1) is normal. FEV1/FVC is normal. FLOW VOLUME LOOP: Mild scooping. LUNG VOLUMES: Not measured DIFFUSING CAPACITY FOR CARBON MONOXIDE: Not measured INTERPRETATION: The prebronchodilator spirometry is normal. MTDD
== END 2020-07-08 08:57 | disposition home or self-care (01) ==
PROVIDERS: PCP Family Medicine; Visit Provider Internal Medicine
DX: M25.512 Pain in left shoulder (principal); J84.9 Interstitial pulmonary disease, unspecified
CPT/HCPCS: 73030; 94010

== ENCOUNTER → 2020-07-11 09:11 | Outpatient (BNVA) | payer MEDICARE, SELFPAY | PROVIDERS: PCP Family Medicine; Referring Provider Orthopaedic Surgery; Visit Provider Orthopaedic Surgery | DX: M54.5 Low back pain (principal); M47.816 Spondylosis without myelopathy or radiculopathy, lumbar region | CPT/HCPCS: 72110 ==

== ENCOUNTER 2020-07-21 20:00 | Outpatient (CLI) | payer MEDICARE, SELFPAY | END 2020-07-21 20:01 | disposition home or self-care (01) | LOC: SLEEP 07-22 09:15 | PROVIDERS: PCP Family Medicine; Visit Provider Nurse Practitioner Family | DX: G47.33 Obstructive sleep apnea (adult) (pediatric) (principal) | CPT/HCPCS: 95810 ==

== ENCOUNTER 2020-07-31 09:40 | Outpatient (CLI) | payer MEDICARE, SELFPAY ==
--- NOTE | 2020-07-31 09:30 | MR_ITS ---
WS: [id number] MRI LUMBAR SPINE NONCONTRAST TECHNIQUE: Sagittal T1, T2 and STIR imaging. Axial T1 and T2 imaging. CLINICAL INFORMATION: M54.5 - Low back pain COMPARISON: CT 4 015 FINDINGS: Mild lumbar curve. No acute compression. Pedicle screw fixation L4-5 with interbody fusion and marva ctomy defects. Slight anterolisthesis L4 on L5. L1-L2: Small right foraminal protrusion with mild right foraminal narrowing. Spinal canal and foramen are patent. Mild facet arthropathy. L2-L3: Slight anterolisthesis. Narrowing of the subarticular recess bilaterally. Slight impingement t raversing L3 nerve roots. Small bilateral foraminal protrusions with moderate bilateral foraminal yamilex rowing. Mild to moderate facet arthropathy. L3-L4: Mild disc bulging with slight narrowing of the subarticular recess bilaterally. Small bilatera l foraminal protrusions with moderate left greater than right foraminal narrowing. Moderate facet art hropathy. L4-L5: Pedicle screw fixation with interbody fusion. Spinal canal and foramen are patent. L5-S1: Mild disc bulge with endplate ridging. Spinal canal is patent. Mild right and no left foramina l narrowing. Moderate facet arthropathy. Bilateral renal cysts. MR/MR lumbar spine wo con* [id number] IMPRESSION: 1. Mild lumbar curve. No acute compression. Pedicle screw fixation L4-5 with i nterbody fusion and laminectomy defects. 2. Mild central canal stenosis L2-L3 L3-L4 with narrowing of the subarticular recess bilaterally. 3. Small foraminal protrusions with moderate foraminal narrowing bilateral L2- 3 and L3-4. 4. Spinal canal and foramen are patent at the fusion level L4-5. 5. Bilateral renal cysts.
== END 2020-07-31 09:41 | disposition home or self-care (01) ==
PROVIDERS: PCP Family Medicine; Visit Provider Orthopaedic Surgery
DX: M96.1 Postlaminectomy syndrome, not elsewhere classified (principal); M48.061 Spinal stenosis, lumbar region without neurogenic claudication; M51.26 Other intervertebral disc displacement, lumbar region; N28.1 Cyst of kidney, acquired; M43.26 Fusion of spine, lumbar region
CPT/HCPCS: 72148

== ENCOUNTER → 2020-09-05 09:13 | Outpatient (BNVA) | payer MEDICARE, SELFPAY | PROVIDERS: PCP Family Medicine; Visit Provider Orthopaedic Surgery | DX: M48.062 Spinal stenosis, lumbar region with neurogenic claudication (principal); Z01.818 Encounter for other preprocedural examination; Z01.812 Encounter for preprocedural laboratory examination; Z20.822 Contact with and (suspected) exposure to COVID-19 | CPT/HCPCS: 87635 ==

== ENCOUNTER → 2020-09-12 16:03 | Outpatient (BNVA) | payer MEDICARE, SELFPAY | PROVIDERS: PCP Family Medicine; Referring Provider Orthopaedic Surgery; Visit Provider Orthopaedic Surgery | DX: Z01.818 Encounter for other preprocedural examination (principal); Z20.822 Contact with and (suspected) exposure to COVID-19 | CPT/HCPCS: 87635 ==

== ENCOUNTER 2020-09-15 10:23 | Observation (INO) | payer MEDICARE, SELFPAY ==
[2020-09-08 10:12] VITALS: BMI 25.8
--- NOTE | 2020-09-08 10:21 | ECG_ITS ---
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 Measurements Intervals [place] Rate: 103 P: 29 MN: 124 QRS: -50 QRSD: 97 T: 106 QT: 345 QTc: 453 Interpretive Statements SINUS TACHYCARDIA MARKED LEFT AXIS DEVIATION [QRS AXIS < -30] LEFT VENTRICULAR HYPERTROPHY AND ST-T CHANGE [VOLTAGE CRITERIA PLUS ST/T ABNORMALITY] POSSIBLE ANTERIOR MYOCARDIAL INFARCTION [30 ms Q WAVE IN V3/V4, OR R < 0.2 mV IN V4], OF INDETERMINATE AGE Compared to ECG 06/17/2020 17:45:33 Sinus rhythm no longer present Incomplete right bundle-branch block no longer present ST (T wave) deviation still present Myocardial infarct finding still present Electronically Signed On 09-08-2020 12:36:24 CDT by Ben Rincon M.D. [id number]
--- NOTE | 2020-09-08 10:42 | ANES.PREANE2 ---
Pre-Anesthetic Assessment Pre-Anesthetic Assessment: Height/Weight: Height 1.78 m Weight 81.647 kg Proposed Procedure: Operation Date: 09/10/20 07:00 Proposed Procedures p Posterior Lumbar Interbody Fusion L3/4 with revision [id number] 13000(Not Applicable) - James Jj DO Familial anesthetic complications: None Social: Social History: Alcohol and Tobacco Exam: Pre-Anes Outpt Exam: alert, oriented x 3, clear to auscultation bilaterally and regular rate & rhythm Airway: Cervical ROM: WNL MP: 3 Dentition: Other (missing) CV/HEM: CV/HEM: CAD (NASIR stents), CHF (ischemic cardiomyopathy) and HTN Comments: PErfusion Stress test 06/21 IMPRESSIONS Large area of old myocardial infarction versus scarring noted in the basal to distal inferior and inferolateral wall. No ischemia detected on the study. EKG segment will be documented separately ECho CONCLUSIONS 1-Normal left ventricular cavity size. Mildly reduced left ventricular systolic function. No regional wall motion abnormalities. Left ventricular ejection fraction is estimated at 50 %. Grade I/IV diastolic dysfunction (abnormal relaxation filling pattern), normal to mildly elevated filling pressures. 2-Moderate aortic valve calcification. No aortic valve stenosis. Moderate aortic valve regurgitation. There appeared to be thickening of aortic valve cannot rule out vegetation, clinical correlation advised. 3-Moderately thickened mitral valve. No mitral valve stenosis. Mild mitral valve regurgitation. 4-There is no pericardial effusion. 5-Pulmonary artery systolic pressure is within normal limits. 6-Right atrial pressure is around 5 mm of mercury. 7-When compared to the prior echocardiogram dated 17 Aug 2019 left ventricle ejection fraction is improved from severely reduced 38% to mildly reduced 50% now. There appeared to be thickening of aortic valve cannot rule out vegetation clinical correlation advised. Sestamibi stress testCONCLUSION: Please note due to baseline abnormality of the EKG specificity and sensitivity of the EKG portion of LexiScan MIBI stress test will be low 1. EKG not suggestive of ischemia 2. Lexiscan injection unremarkable. 3. Perfusion scan will be documented separately. : : Chronic renal Insufficiency Anesthetic Plan: ASA status: 4 Anesthesia: General Other: Patient has history of poor medication compliance. Today his states he is is still on his plavix and his surgery is in 2 days. Risk of > 500 ml blood loss (7ml/kg in children): No PFSH Anesthesia PFSH: Medical History Acute kidney injury superimposed on chronic kidney disease BPH NOS w ur obs/LUTS Cardiomyopathy Chronic kidney disease Combined systolic and diastolic cardiac dysfunction Elevated PSA History of pulmonary embolism Hyperlipidemia Hypertension Hypertensive urgency Ischemic cardiomyopathy Mild aortic regurgitation Mild aortic stenosis 12/07/2018: Mean gradient 4.6 mmHg, aortic valve area 2.2 cm? Moderate pulmonary arterial systolic hypertension Moderate to severe pulmonary hypertension 12/07/2018: 70 mmHg Presence of stent in LAD coronary artery Smoking Surgical History History of ankle surgery History of back surgery Family History Family/Other Cancer Mother Dementia Diabetes Sister Diabetes CAD (coronary artery disease) Father , AT AGE 78 Brain aneurysm Denies family history of Clotting disorder Hyperlipidemia Psychiatric illness Chronic kidney disease (CKD) Suicide Anesthesia complication Bleeding disorder Family history of premature coronary artery disease Lung disease Hypertension Stroke Social History Smoking and tobacco status: current every day smoker cigarettes Years cigarettes smoked: 20 Quit status (tobacco): considering quitting Alcohol intake: current Alcohol intake frequency: few times a month Marital status: Current occupational status: disabled History of recent travel: No Data Anesthesia Cardiac Studies: No Data to Display
[2020-09-08 10:47] LABS: Basophils # 0.1 10^3/uL (0.0-0.1); Basophils % 0.8 %; Eosinophils # 0.1 10^3/uL (0.0-0.8); Eosinophils % 1.9 %; Hematocrit 40.3 % (42.0-52.0); Hemoglobin 13.6 g/dL (11.7-16.6); Lymphocytes # 1.4 10^3/uL (0.8-4.8); Lymphocytes % 22.4 %; Mean Corpuscular HGB Conc 33.7 g/dL (30.0-36.0); Mean Corpuscular Hemoglobin 32.4 pg (28.0-34.0); Mean Platelet Volume 10.1 fL (7.4-10.4); Monocytes # 0.6 10^3/uL (0.2-0.9); Monocytes % 9.6 %; Neutrophils # 4.02 10^3/uL (1.8-7.7); Neutrophils % 65.1 %; Nucleated Red Blood Cells % 0 %; Platelet Count 275 10^3/cmm (130-400); Red Cell Distribution Width 14.3 % (12.1-15.1); White Blood Count 6.2 10^3/uL (4.0-10.0)
[2020-09-08 11:12] LABS: Alanine Aminotransferase 21 U/L (0-41); Albumin Level 3.7 g/dL (3.5-5.2); Alkaline Phosphatase 126 IU/L (40-130); Aspartate Amino Transferase 31 U/L (0-40); Blood Urea Nitrogen 33 mg/dL (8-23); Carbon Dioxide 21 mmol/L (22-29); Chloride 106 mmol/L (98-107); Globulin 3.6 g/dL (1.3-4.6); Glomerular Filtration Rate 28.8 mL/min (90-130); Glucose 103 mg/dL (65-115); Osmolality Calculated 296 mOsm/kg (285-295); Sodium 139 mmol/L (136-145); Total Bilirubin 0.3 mg/dL (0.15-1.2); Total Protein 7.3 g/dL (6.6-8.7)
[2020-09-15] VITALS (22 sets, daily range): BP systolic 91–150; BP diastolic 62–102; PULSE 69–86; RESP 12–20; TEMP 36.1–36.9; O2SAT 94–99
--- NOTE | 2020-09-15 | SCC_ITS ---
Procedure Done: 1. L3/4 Interbody fusion with posterolateral fusion 2. Instrumentation L3-5 3. Cage at L3/4 4. Laminectomy L3 5. removal of hardware from lumbar spine 6. use of autograft from same incision 7. allograft 8. Bone marrow aspirate from right iliac crest through separate incision in fascia 9. Use of computer assisted /stereotactic navigation 17 seconds of fluoroscopic guidance, for a cumulative dose of 24.3mGy, was provided to Dr. Jj by the radiology department. C-arm images of the lumbar spine were saved for the patient's permanent record. JOSE
--- NOTE | 2020-09-15 | XR_ITS ---
WS: [id number] Exam: XR lumbar spine 2-3V* [id number] Date/Time of Exam: 09/15/2020 12:00 AM Reason For Exam: PLIF Intraoperative C-arm images of the lumbar spine in the AP and lateral projections are submitted for e valuation. Pedicle screws are noted at the L3, L4 and L5 levels. A disc spacer is been placed at the L3-4 disc l evel. An additional spacer is seen at the L4-5 disc level. Surgical retractors are in place. XR/XR lumbar spine 2-3V* [id number] IMPRESSION: 1. Hardware placement in the lower lumbar spine as detailed above.
[2020-09-15] MEDS: sodium chloride 0.9% 1,000 ML 30 ML IV (06:22)
--- NOTE | 2020-09-15 06:53 | W.PM.OPSUD ---
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
--- NOTE | 2020-09-15 06:54 | P.HP_ITS ---
Providers/Chief Complaint Primary Care Provider: Jane Vega MD Chief Complaint: plif History of Present Illness Fredy Hammonds is a 65 year old male Details: This is an established 65 year old male patient here today to review MRI. Onset: years Duration: years Characteristics: aching, burning, sharp Severity: 01/11 Location: lower back Radiating symptoms: all of it lower extremities Aggravating factors: walking, sitting, standing for prolonged periods of time. Alleviating factors: Laying on stomach Neuro deficits: Patient reports numbness, tingling, weakness, incontinence of bowel/bladder, saddle anesthesia. Prior tx: Pervious fusion with Dr. Benitez in [place] he is unsure when this was done. He does not want injections. Review of Systems Narrative: General ROS: negative for weight changes, fever ENT ROS: negative for nasal congestion, drainage or bleeding, sore throat, dysphagia or ear pain Eyes: PERRL Hematological and Lymphatic ROS: negative for swollen glands or abnormal bleeding Endocrine ROS: negative for polyuria/polydpsia or new changes in weight Respiratory ROS: negative for cough, shortness of breath, or wheezing Cardiovascular ROS: negative for chest pain or dyspnea on exertion Gastrointestinal ROS: negative for reflux, abdominal pain, change in bowel habits, or black or bloody stools Musculoskeletal ROS: negative for back pain, neck pain, or joint pain or swelling except for current problem Neurological ROS: negative for TIA or stoke symptoms Skin: no rashes Medications/Allergies Home Medications Medication Instructions Recorded Confirmed Last Taken Type fluticasone propion-salmeterol 2 inh INHALATION BID PRN 08/16/19 09/08/20 06/17/20 History [Cristyela Inhub] tramadol 50 mg tablet 50 mg PO Q12H PRN 30 Days #45 tab 11/05/19 09/08/20 Unknown Rx nitroglycerin 0.4 mg sublingual 0.4 mg SUBLINGUAL Q5M PRN #25 tab 06/17/20 09/08/20 Unknown Rx tablet tamsulosin 0.4 mg PO DAILY 06/17/20 09/08/20 Unknown History hydralazine 50 mg PO TID #180 tab 06/19/20 09/08/20 Unknown Rx clopidogrel 75 mg tablet 75 mg PO DAILY #90 tab 06/24/20 09/08/20 Unknown Rx amlodipine 10 mg tablet 10 mg PO DAILY #90 tab 06/26/20 09/15/20 09/15/20 04:30 Rx furosemide 40 mg tablet 40 mg PO DAILY PRN #90 tab 06/27/20 09/08/20 Unknown Rx isosorbide mononitrate 30 mg 30 mg PO DAILY #90 tab 06/27/20 09/15/20 09/15/20 04:30 Rx tablet,extended release 24 hr potassium chloride 20 mEq 20 meq PO DIRECTED #90 tab 06/27/20 09/08/20 Unknown Rx tablet,extended release albuterol sulfate 90 mcg/actuation 2 inh INHALATION Q4H PRN #8.5 g 07/03/20 09/08/20 Unknown Rx aerosol inhaler carvedilol 12.5 mg tablet 12.5 mg PO BID #60 tab 07/03/20 09/08/20 Unknown Rx Allergies Allergy/AdvReac Type Severity Reaction Status Date / Time No Known Allergies Allergy Verified 09/15/20 05:53 PFSH Acute PFSH: Medical History Acute kidney injury superimposed on chronic kidney disease BPH NOS w ur obs/LUTS Cardiomyopathy Chronic kidney disease Combined systolic and diastolic cardiac dysfunction Elevated PSA History of pulmonary embolism Hyperlipidemia Hypertension Hypertensive urgency Ischemic cardiomyopathy Mild aortic regurgitation Mild aortic stenosis 12/07/2018: Mean gradient 4.6 mmHg, aortic valve area 2.2 cm? Moderate pulmonary arterial systolic hypertension Moderate to severe pulmonary hypertension 12/07/2018: 70 mmHg Presence of stent in LAD coronary artery Smoking Surgical History History of ankle surgery History of back surgery Family History Family/Other Cancer Mother Dementia Diabetes Sister Diabetes CAD (coronary artery disease) Father , AT AGE 78 Brain aneurysm Denies family history of Clotting disorder Hyperlipidemia Psychiatric illness Chronic kidney disease (CKD) Suicide Anesthesia complication Bleeding disorder Family history of premature coronary artery disease Lung disease Hypertension Stroke Social History Smoking and tobacco status: current every day smoker cigarettes Years cigarettes smoked: 20 Quit status (tobacco): considering quitting Alcohol intake: current Alcohol intake frequency: few times a month Marital status: Current occupational status: disabled History of recent travel: No Vitals/I&O/Wt Last Vital Signs Temp 98.5 F 09/15/20 05:56 Pulse 86 09/15/20 05:56 Resp 18 09/15/20 05:56 BP 150/102 09/15/20 05:56 Pulse Ox 99 09/15/20 05:56 Physical Exam Narrative: EXAM NARRATIVE: CONSTITUTIONAL: The patient is a normal appearing [] in no apparent distress. GENERAL: Patient in no acute distress. CARDIAC: Regular rate and rhythm. CHEST: Normal inspiratory effort, normal respiratory rate. ABDOMEN: Soft and nontender. SKIN: Clear, warm and intact. NEURO?PSYCH: The patient is alert and oriented to person, place and time. Sensorv /SILT Motor StrengthShoulder abduction C5 5/5Wrist extension C6 5/5Elbow extension C7 5/5Hand Clinical Product Specialist C8 5/5Finger abduction T15/5 Radial/ Ulnar/ Median n intact LowerSensory (SILT)Motor StrengthHin flexion L2/3Ant/inner thigh 5/5Hip adduction L2/3 5/5Knee extension L4 Lat thigh, 5/5Toe dorsiflexion L5 5/5Ankle dorsiflexion L5/ S68Pfrvwof flexion S1 5/5 DTRBleeps 2+Triceps 2+Brachioradialis 2+Patellar 2+Achilles 2+ MUSCULOSKELETAL: [] UPPEREXTREMITIES: The patient had full active ROM in fingers, wrist, elbow, and shoulder. The patient demonstrated ability to fully flex/extend/abduct/adduct fingers, make ok sign, cross 2nd/3rd digits, extend 1st digit fully.. Radial pulse 2+, CR<2 seconds. LOWER EXTREMITIES: Pt has full, active ROM of toes, ankle, knee, and hip. Dorsalis pedis/posterior tibialis pulses 2+, CR<2 seconds. SPINE: Skin warm, dry, intact. Data : 09/08/20 10:30 09/08/20 10:30 A&P Assessment and plan (1) Lumbar stenosis with neurogenic claudication: L3/4 PLIF with revision 07/07 Status: Acute Attestations Medical Necessity Statement*: failed conservative tx Coding Level of Care Code Acute [place] Guide for [facility] Fwd Diagnoses Lumbar stenosis with neurogenic claudication M48.062
--- NOTE | 2020-09-15 06:54 | P.ANESUD_ITS ---
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 Proposed Procedure: Operation Date: 09/15/20 07:00 Proposed Procedures p Posterior Lumbar Interbody Fusion L3/4 with revision [id number](Not Applicable) - James Jj, DO Any changes to Pre-Anesthetic Assessment?: No Last Intake: Intake Last Liquid Date 09/15/20 Last Liquid Time 04:30 Last Solid Date 09/14/20 Last Solid Time 09:00 Vitals: Temperature 98.5 F 09/15/20 05:56 Temperature Source Temporal Artery S can 09/15/20 05:56 Pulse Rate 86 09/15/20 05:56 Respiratory Rate 18 09/15/20 05:56 Blood Pressure 150/102 09/15/20 05:56 Blood Pressure Love n 118 09/15/20 05:56 Pulse Oximetry 99 09/15/20 05:56 Oxygen Delivery Me thod 09/15/20 05:56 Exam: Pre-Anes Outpt Exam: alert, oriented x 3, clear to auscultation bilatera lly and regular rate & rhythm Cardiac Studies: No Data to Display
[2020-09-15] MEDS: heparin, porcine 1,000 unit/mL INJ 10 mL 10000 UNIT IRRIGATION (08:09)
[2020-09-15] MEDS: vancomycin 1,000 MG SDV 1000 MG XX (09:44)
--- NOTE | 2020-09-15 09:47 | SUR.OPER ---
FAMILY UNAVAILABLE FOR UPDATE.
--- NOTE | 2020-09-15 10:30 | PM.OP ---
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 L3/4 Interbody fusion with posterolateral fusion 2. Instrumentation L3-5 3. Cage at L3/4 4. Laminectomy L3 5. removal of hardware from lumbar spine 6. use of autograft from same incision 7. allograft 8. Bone marrow aspirate from right iliac crest through separate incision in fascia 9. Use of computer assisted /stereotactic navigation Surgeon: James Jj Anesthesia: General Estimated blood loss (mL): 300 Condition: stable Disposition: PACU Procedure: 1. L3/4 Interbody fusion with posterolateral fusion 2. Instrumentation L3-5 3. Cage at L3/4 4. Laminectomy L3 5. removal of hardware from lumbar spine 6. use of autograft from same incision 7. allograft 8. Bone marrow aspirate from right iliac crest through separate incision in fascia 9. Use of computer assisted /stereotactic navigation Patient is brought to the operative suite. After undergoing anesthesia, the patient had neuro monitoring attached. Patient was then placed in the prone position on the Last table. All areas of impingement were well-padded. Patient was then prepped and draped in the normal sterile fashion. Skin incision was then made over the L3 to L5 level. Subperiosteal dissection was made out to the transverse processes of L3 and L4 and L5 the L4 and L5 screws were identified. Screws were identified bilaterally. Once the screws identified attention was then brought to removing them. The end caps were removed at L4 and L5 bilaterally. The rods were removed and then the screws were backed out and removed. Next attention was brought to the the [employer] bone marrow aspirate kit was used to aspirate bone marrow aspirate from the right iliac crest. This was done through separate incision in the fascia on the right iliac crest.. This was done by using the sharp probe to open up the bone. Aspiration was performed and then the blunt probe was then used to dissect down to through the bone tunnel. An aspirating well drawn back a millimeter approximately 20 cc of bone marrow aspirate was used. Admixed with the allograft and autograft bone that will be used. Attention was then brought to placing the fiducial into the right iliac crest. 2 sharp pins were placed into the iliac crest and then the fiducial for the computer stereotactic navigation was attached to this. The Ziem C arm was then brought in and spun around the patient and then the information from the C arm was then transferred to the computer in order to facilitate using the navigation. The technique for placing the pedicle screws was to use a drill followed by the gearshift probe with navigation attached. Followed by the ball probe to feel the superior inferior medial lateral moore of the pedicles. Then placement of the screws with navigation attached. Was done at each pedicle. Screws were placed at L4 bilaterally and L5 these holes were already predrilled from the previous screws I went up a size they had 7 the previous screws I increased to 7.5. Attention was then brought to the L3 pedicles. Drill was used followed by the gearshift with navigation on it. Followed by placement of the screw. These were 6.5 40mm screws. Next attention was brought to performing the laminectomy ofL3. This was done using the high-speed bur Kerrisons and curettes. Once the lamina was removed and then attention was brought to performing a partial facetectomy on the contralateral side. This was done again using the high-speed bur curettes and Kerrisons. The ligamentum flavum was taken down bilaterally from L3 to L4. Attention was then brought to the facet on the ipsilateral side. The facet was taken down. The L4 nerve was decompressed as it passed around the L4 pedicle. The laminectomy was done for purposes of decompressing the nerve as well as placement of the cage. The L3 nerve was identified as it traversed through the L3/4 foramen. The thecal sac was identified and retracted. The L3/4 disc base was identified. Using a knife the disc base was opened. And then sequential french were placed. The first shaver was a 6 and the last shaver was a 12. Using a pituitary and down going curette the endplates were scraped and disc material was removed from the space. Once adequate decompression of the disc base was felt to be had. Osteoamp sponge was packed into the anterior aspect of the disc base. Then a size 12 cage from [email or web address] was placed after packing osteoamp into the cage. While placing the cage the thecal sac and L4 nerve was protected. C arm was used to ensure that the cages placed in the appropriate position. Attention was then brought to attaching the rods to the screws placed in the L3 and L4 and L5 bilaterally. Caps were torqued into position. Locking the construct in place. Wound was copiously irrigated and then attention was brought to decorticating the facets and transverse processes laterally. Bone that was taken down from the lamina was used along with osteoamp fibers and sponges were packed into the lateral gutters along the facet joints. This was done bilaterally. The fiducial and pins were removed from the leg crest. Wound was then closed in a layered fashion starting with the thoracolumbar fascia. 0-strata fix was used the sub cutaneous tissue was closed with 2-0 strata fix and skin with 4-0 monocryl. Glue was then used to seal the skin and a steril dressing was applied. Patient was then placed in the supine position. The endotracheal tube was removed and patient was transferred to the PACU in stable condition.
--- NOTE | 2020-09-15 10:51 | SUR.PHASEI ---
1035 ART LINE REMOVED, CATHETER IN TACK, PRESSURE APPLIED
--- NOTE | 2020-09-15 10:52 | SUR.PHASEI ---
1050 ART LINE SITE, NO BLEEDING, PRESSURE DRESSING APPLIED
--- NOTE | 2020-09-15 13:15 | P.CONIM_ITS ---
Providers/Reason For Consult Consulting Physician/Specialty*: Mike Calvillo MD, hospitalist Reason for Consult*: Medical management, chronic kidney disease and hypertension Attending Physician: James Jj DO Primary Care Provider: Jane Vega MD History of Present Illness History of Present Illness Fredy Hammonds is a 65 year old male who underwent an L4/5 fusion earlier today. I been asked to consult secondary to his multiple medical problems. Patient is somewhat sedate, and cannot really answer any questions right now. He gradually asked me if the surgery went okay. He denies any particular pain currently. Review of Systems General: Reports: ROS unobtainable due to mental status (Currently too sedate for complete review of systems.) Meds/Allergies Home Medications and Allergies Home Medications Medication Instructions Recorded Confirmed Last Taken Type fluticasone propion-salmeterol 2 inh INHALATION BID PRN 08/16/19 09/08/20 06/17/20 History [Wixela Inhub] tramadol 50 mg tablet 50 mg PO Q12H PRN 30 Days #45 tab 11/05/19 09/08/20 Unknown Rx nitroglycerin 0.4 mg sublingual 0.4 mg SUBLINGUAL Q5M PRN #25 tab 06/17/20 09/08/20 Unknown Rx tablet tamsulosin 0.4 mg PO DAILY 06/17/20 09/08/20 Unknown History hydralazine 50 mg PO TID #180 tab 06/19/20 09/08/20 Unknown Rx clopidogrel 75 mg tablet 75 mg PO DAILY #90 tab 06/24/20 09/08/20 Unknown Rx amlodipine 10 mg tablet 10 mg PO DAILY #90 tab 06/26/20 09/15/20 09/15/20 04:30 Rx furosemide 40 mg tablet 40 mg PO DAILY PRN #90 tab 06/27/20 09/08/20 Unknown Rx isosorbide mononitrate 30 mg 30 mg PO DAILY #90 tab 06/27/20 09/15/20 09/15/20 04:30 Rx tablet,extended release 24 hr potassium chloride 20 mEq 20 meq PO DIRECTED #90 tab 06/27/20 09/08/20 Unknown Rx tablet,extended release albuterol sulfate 90 mcg/actuation 2 inh INHALATION Q4H PRN #8.5 g 07/03/2010/22 Unknown Rx aerosol inhaler carvedilol 12.5 mg tablet 12.5 mg PO BID #60 tab 07/03/20 09/08/20 Unknown Rx Allergies Allergy/AdvReac Type Severity Reaction Status Date / Time No Known Allergies Allergy Verified 09/15/20 05:53 PFSH Acute PFSH: Medical History Acute kidney injury superimposed on chronic kidney disease BPH NOS w ur obs/LUTS Cardiomyopathy Chronic kidney disease Combined systolic and diastolic cardiac dysfunction Elevated PSA History of pulmonary embolism Hyperlipidemia Hypertension Hypertensive urgency Ischemic cardiomyopathy Mild aortic regurgitation Mild aortic stenosis 12/07/2018: Mean gradient 4.6 mmHg, aortic valve area 2.2 cm? Moderate pulmonary arterial systolic hypertension Moderate to severe pulmonary hypertension 12/07/2018: 70 mmHg Presence of stent in LAD coronary artery Smoking Surgical History History of ankle surgery History of back surgery Family History Family/Other Cancer Mother Dementia Diabetes Sister Diabetes CAD (coronary artery disease) Father , AT AGE 78 Brain aneurysm Denies family history of Clotting disorder Hyperlipidemia Psychiatric illness Chronic kidney disease (CKD) Suicide Anesthesia complication Bleeding disorder Family history of premature coronary artery disease Lung disease Hypertension Stroke Social History Smoking and tobacco status: current every day smoker cigarettes Years cigarettes smoked: 20 Quit status (tobacco): considering quitting Alcohol intake: current Alcohol intake frequency: few times a month Marital status: Current occupational status: disabled History of recent travel: No Vitals/I&O/Wt Last Vital Signs Temp 97.7 F 09/15/20 11:15 Pulse 76 09/15/20 11:15 Resp 15 09/15/20 11:15 BP 116/83 09/15/20 11:15 Pulse Ox 94 09/15/20 11:15 09/14/20 09/15/20 09/15/20 22:59 06:59 14:59 Intake Total 1050 / 1050 Output Total 600 / 600 Balance 450 / 450 Physical Exam Narrative: EXAM NARRATIVE: General exam is a sleepy black male in no apparent distress HEENT: Atraumatic normocephalic. Oropharynx is clear. Neck is supple no lymphadenopathy or thyromegaly Cardiovascular regular rate and rhythm without murmur, no S3 or S4 Lungs diminished breath sounds bilaterally but no wheezing or crackles Back demonstrates a surgical dressing, and a drain. Abdomen demonstrates a binder but no obvious organosplenomegaly. Bowel sounds are noted was deferred Extremities no cyanosis clubbing or edema. It is difficult to get him to cooperate with any dorsiflexion currently. Neuro: No obvious focal deficits. Does move all 4 extremities spontaneously. Urinary Catheter Management^: F: Cath Placed During This Visit: yes, but has since been removed by the nurse Urinary Catheter Date of Insertion: 09/15/20 Urinary Catheter Time of Insertion: 07:15 Date Urinary Catheter Removed: 09/15/20 Time Urinary Catheter Discontinued: 10:31 A&P Assessment and plan (1) Lumbar stenosis with neurogenic claudication: Directly postoperative L3/4 fusion. Surgery managing Status: Acute (2) Moderate to severe pulmonary hypertension: Stable currently Status: Acute (3) Mild aortic stenosis: Stable currently Status: Acute (4) Cardiomyopathy: history of ischemic cardiomyopathy with last EF around 40%. Currently compensated. Reduce fluids to 50 cc an hour It appears that his Lasix and potassium are as needed. Will reevaluate tomorrow, need for medication. Status: Acute Qualifiers: Cardiomyopathy type: dilated Qualified Code(s): I42.0 - Dilated cardiomyopathy (5) Chronic kidney disease: Last creatinine 2.7. Avoid renal toxic medication Close follow-up with laboratory tomorrow. Avoid NSAIDS Status: Acute Qualifiers: Chronic kidney disease stage: stage 3 (moderate) Qualified Code(s): N18.3 - Chronic kidney disease, stage 3 (moderate) Additional A&P Information Full code Lovenox for DVT prophylaxis Thank you for this consultation. Consult Attestations Medical Necessity Statement: As per primary Time Spent in Patient Care: Greater than 35 minutes Coding Level of Care Code Acute Nurse Wound for [employer] Fwd Diagnoses Lumbar stenosis with neurogenic claudication M48.062 Moderate to severe pulmonary hypertension I27.20 Mild aortic stenosis I35.0 Cardiomyopathy I42.0 Cardiomyopathy type: dilated Chronic kidney disease N18.3 Chronic kidney disease stage: stage 3 (moderate)
--- NOTE | 2020-09-15 13:45 | ANE.PACU2 ---
Inpatient post-anesthesia follow up: Airway intact: Yes Vital signs: Temperature 97.7 F Pulse Rate 76 Respiratory Rate 15 Blood Pressure 116/83 Pulse Oximetry 94 Oxygen Delivery Me thod Nasal Cannula Oxygen Flow Rate 2 Fraction of Inspir ed Oxygen Hydration adequate: Yes Nausea and vomiting: No Pain level: 2 Mental status: Baseline
[2020-09-15] MEDS: HYDROcodone-acetaminophen 5-325 mg Tablet PO (15:15)
[2020-09-15] MEDS: morphine 4 mg/mL SDV 1 mL 2 MG IVP ×2 (16:18→20:14)
[2020-09-15] MEDS: lactated ringers 1,000 ML 50 ML IV (16:51)
[2020-09-15] MEDS: docusate sodium 100 mg Capsule PO (16:51)
--- NOTE | 2020-09-15 17:50 | PC.RESP ---
SMOKING CESSATION AND PULMONARY REHAB INFORMATION SENT TO PATIENT.
--- NOTE | 2020-09-15 18:10 | PC.NURSE ---
SHIFT SUMMARY PATIENT SLEPT FROM ARRIVAL TO THE FLOOR UNTIL AROUND 1600 TODAY. PATIENT THEN WOKE UP IN A LOT OF PAIN. THIS NURSE ADMINISTERED ORAL AND IV PAIN MEDICATIONS. PATIENT HAS HAD 175ML OF OUTPUT FROM HEMOVAC. PATIENT WALKED WITH PHYSICAL THERAPY AND A WALKER AND DID WELL. PAIN NOW WELL CONTROLLED. VITALS STABLE. CONTINUE TO MONITOR.
[2020-09-15] MEDS: hyDRALAzine 50 mg Tablet PO (20:09)
[2020-09-15] MEDS: carvedilol 12.5 mg Tablet PO (20:09)
[2020-09-16] VITALS (12 sets, daily range): BP systolic 124–157; BP diastolic 74–95; PULSE 65–99; RESP 16–22; TEMP 36.3–36.9; O2SAT 95–100
[2020-09-16] MEDS: morphine 4 mg/mL SDV 1 mL 2 MG IVP (02:21)
[2020-09-16] MEDS: HYDROcodone-acetaminophen 5-325 mg Tablet PO ×4 (02:26→20:47)
[2020-09-16 02:45] LABS: Hematocrit 32.7 % (42.0-52.0); Hemoglobin 10.9 g/dL (11.7-16.6); Lymphocytes # 0.6 10^3/uL (0.8-4.8); Lymphocytes % 7.6 %; Mean Corpuscular HGB Conc 33.3 g/dL (30.0-36.0); Mean Corpuscular Hemoglobin 32.7 pg (28.0-34.0); Mean Corpuscular Volume 98.2 fL (80-94); Mean Platelet Volume 10.4 fL (7.4-10.4); Monocytes # 0.5 10^3/uL (0.2-0.9); Monocytes % 6.4 %; Neutrophils # 6.44 10^3/uL (1.8-7.7); Neutrophils % 85.7 %; Nucleated Red Blood Cells % 0 %; Platelet Count 216 10^3/cmm (130-400); Red Blood Count 3.33 10^6/uL (4.1-5.3); Red Cell Distribution Width 14.5 % (12.1-15.1); White Blood Count 7.5 10^3/uL (4.0-10.0)
[2020-09-16 03:13] LABS: Anion Gap 18.2 (5-19); Blood Urea Nitrogen 45 mg/dL (8-23); Carbon Dioxide 16 mmol/L (22-29); Chloride 106 mmol/L (98-107); Glomerular Filtration Rate 18.3 mL/min (90-130); Glucose 149 mg/dL (65-115); Osmolality Calculated 294 mOsm/kg (285-295); Potassium 5.2 mmol/L (3.5-5.1); Sodium 135 mmol/L (136-145)
[2020-09-16] MEDS: enoxaparin 40 mg/0.4 mL Syringe SUBCUT (05:53)
--- NOTE | 2020-09-16 07:18 | PC.NURSE ---
SHIFT SUMMARY Had a good night. Received IV Morphine and po Hydrocodone for pain. Dressing to medial back D&IL. Abd binder in place. IV infusing without difficulty and receiving IV antibiotics. Voiding well per urinal. Is hoping to go home today. 90ml total sanguinous drainage from hemovac this shift
[2020-09-16] MEDS: clopidogrel 75 mg Tablet PO (08:03)
[2020-09-16] MEDS: amlodipine 10 mg Tablet PO (08:03)
[2020-09-16] MEDS: hyDRALAzine 50 mg Tablet PO ×3 (08:03→20:43)
[2020-09-16] MEDS: docusate sodium 100 mg Capsule PO ×2 (08:03→17:22)
[2020-09-16] MEDS: carvedilol 12.5 mg Tablet PO ×2 (08:03→20:43)
[2020-09-16] MEDS: tamsulosin 0.4 mg Capsule PO (08:03)
[2020-09-16] MEDS: isosorbide mononitrate ER 30 mg Tablet PO (08:03)
--- NOTE | 2020-09-16 08:11 | PC.NURSE ---
HEMOVAC DISCONTINUED BY THIS NURSE.
--- NOTE | 2020-09-16 08:11 | PM.DCS ---
Discharge Providers Date of Admission: 09/15/20 10:23 Date of Discharge: September 16, 2020 Attending Provider at Admission: James Jj DO Attending Provider at Discharge: James Jj DO Primary Care Provider: Jane Vega MD Diagnoses at Discharge Discharge Diagnosis (1) Lumbar stenosis with neurogenic claudication: Status: Acute (2) Moderate to severe pulmonary hypertension: Status: Acute Permanent problem details: 12/07/2018: 70 mmHg (3) Mild aortic stenosis: Status: Acute Permanent problem details: 12/07/2018: Mean gradient 4.6 mmHg, aortic valve area 2.2 cm? (4) Cardiomyopathy: Status: Acute Qualifiers: Cardiomyopathy type: dilated Qualified Code(s): I42.0 - Dilated cardiomyopathy (5) Chronic kidney disease: Status: Acute Qualifiers: Chronic kidney disease stage: stage 3 (moderate) Qualified Code(s): N18.3 - Chronic kidney disease, stage 3 (moderate) Reason for Visit Reason for Visit: plif Hospital Course Hospital Course Patient was admitted on 09/15/2020. Patient had a revision posterior lumbar interbody fusion at L3-4. Patient tolerated procedure well his stay was uneventful. He was discharged on 09/16/2020. Physical Exam Narrative: EXAM NARRATIVE: Patient is doing well sitting up in a chair no complaints. Urinary Catheter Management^: F: Cath Placed During This Visit: yes, but has since been removed by the nurse Urinary Catheter Date of Insertion: 09/15/20 Urinary Catheter Time of Insertion: 07:15 Date Urinary Catheter Removed: 09/15/20 Time Urinary Catheter Discontinued: 10:31 Discharge Data Data Completed and Pending: Completed Studies During Hospitalization Category Date Time Status XR lumbar spine 2 -3V* 19802 Routine Exams 09/15/20 Completed Labs from last 24 hours 09/16/20 09/16/20 02:28 02:28 WBC 7.5 RBC 3.33 L Hgb 10.9 L Hct 32.7 L MCV 98.2 H MCH 32.7 MCHC 33.3 RDW 14.5 Plt Count 216 MPV 10.4 Neut % (Auto) 85.7 Lymph % (Auto) 7.6 [place] % (Auto) 6.4 Eos % (Auto) 0.0 Baso % (Auto) 0.0 Neut # (Auto) 6.44 Lymph # (Auto) 0.6 L [place] # (Auto) 0.5 Eos # (Auto) 0.0 Baso # (Auto) 0.0 Nucleated RBC % (a uto) 0 Nucleated RBCs # 0.0 Sodium 135 L Potassium 5.2 H Chloride 106 Carbon Dioxide 16 L Anion Gap 18.2 BUN 45 H Creatinine 4.0 H GFR Calculation 18.3 L Glucose 149 H Calculated Osmolal ity 294 Calcium 8.0 L Vitals: Last Vital Signs Temp 98.0 F 09/16/20 04:00 Pulse 77 09/16/20 04:00 Resp 18 09/16/20 04:00 BP 130/95 09/16/20 04:00 Pulse Ox 99 09/16/20 04:00 Discharge Plan Discharge Patient Disposition: Home Condition: Stable Prescriptions: New hydrocodone-acetaminophen 5-325 mg tablet 1 - 2 tab PO .Q4-6H Qty: 40 RF: 0 Continued albuterol sulfate 90 mcg/actuation HFA aerosol inhaler 2 inh INHALATION Q4H PRN (Reason: shortness of breath or wheezing) Qty: 8.5 RF: 0 carvedilol 12.5 mg tablet 12.5 mg PO BID Qty: 60 RF: 3 tramadol 50 mg tablet 50 mg PO Q12H PRN (Reason: pain) 30 Days Qty: 45 RF: 0 Nitrostat 0.4 mg tablet, sublingual 0.4 mg SUBLINGUAL Q5M PRN (Reason: Chest Pain) Qty: 25 RF: 0 clopidogrel 75 mg tablet 75 mg PO DAILY Qty: 90 RF: 4 amlodipine 10 mg tablet 10 mg PO DAILY Qty: 90 RF: 3 isosorbide mononitrate 30 mg tablet extended release 24 hr 30 mg PO DAILY Qty: 90 RF: 2 potassium chloride 20 mEq tablet extended release 20 meq PO DIRECTED Qty: 90 RF: 2 furosemide 40 mg tablet 40 mg PO DAILY PRN (Reason: Edema) Qty: 90 RF: 1 fluticasone propion-salmeterol [Wixela Inhub] 250-50 mcg/dose Blister With Device 2 inh INHALATION BID PRN (Reason: UNKNOWN) RF: 0 tamsulosin 0.4 mg capsule 0.4 mg PO DAILY RF: 0 hydralazine 25 mg tablet 50 mg PO TID Qty: 180 RF: 0 Discharge Orders: Discharge Order (Routine); Ordered 09/16/20 Ordered By: James Jj Discharge Diet: Advance as tolerated Discharge Activity: Limit activity as instructed Patient Instructions: Opioid Safety Activity Restrictions/Additional Instructions: Thank you for [facility] for your care! The following is a list of instructions, from your provider, to follow upon your discharge to ensure you have the optimal recovery from your recent injury orsurgery. Follow-up care is a rios part of your treatment and safety. Be sure to make and go to all appointments, and call your doctor if you are having problems. If you do not already have a follow-up appointment made, call Dr. Jj office in the next 1-3 days to make follow up appointment for 1 weeks at [phone]. It is also a good idea to know your test results and keep a list of the medicines you take. Medications will be prescribed for you at your provider's discretion. These medications are to be used as instructed; if they are taken more often that prescribed they will not be refilled early and in most cases will not be refilled at all. > When a refill is needed,you should contact meseret friedman 2-3 business days before your prescription runs out. Medications will NOT be refilled by transfusion nurse providers after hours! > Many pain medications contain Tylenol (Acetaminophen). Do not consume more than 4,000 mg of Tylenol per day in total with any combination ofmedications. > Pain medications can cause constipation. Please use an over the counter stool softener as directed, while taking pain medications. Consulty our local pharmacist with questions or recommendations on stool softeners. If constipation persists, contact our office or your primary care provider. > While under our care,you are not to receive pain medications or other controlled substances from any other provider unless our office is notified and approves. Any attempts to do so will result in refusal to prescribe any further pain medications and possible dismissal from our practice. ? Your wound and/or dressing should remain clean and dry until we see you in the office. > It is normal for there to be a small amount of discharge (bloody or blood tinged) present from a surgical wound for the first 1-3days. > ? Showering is permitted, however we ask that you do not take a bath, sit in a whirlpool / Jacuzzi, or go swimming for 1 month. For only the first 2 days after surgery, lt wilt be necessary for you to cover your wound/dressing with plastic and tape to keep it dry. ? Walking is essential for the healing process after surgery. We would like you to slowly advance your walking. This should be done on relatively flat clear ground (inside or out) or can be done on a treadmill. Remember this goal does not have to happen all at once, slowly increase your distance and duration. This can be broken into more more than one walk per day as tolerated. Patients who walk as directed after surgery rarely require Physical Therapy. In the unlikely event this issue arises your provider will direct hospital staff to make the appropriate arrangements. ? No lifting over 5 pounds {a gallon of milk) or bending/twisting until further notice. Each of these activities places an unnecessary amount of stress onto the body and can impede the delicate healing process. > Instead of bending at the waist, keep your back straight and bend at the knees. > Instead of twisting your torso, keep your back straight and turn your entire body with your feet. ? You may sleep in any position which makes you comfortable. Many patients find comfort sleeping in a reclining chair. It is not abnormal to have difficulty sleeping for the first several weeks following your surgery. We recommend trying Benadry! or Tylenol PM as directed to help with your sleeping difficulties. Both medications are over the counter and available withoutprescription. ? NO SMOKING!!! Smoking dramatically increases the probability of developing postoperative wound infections. ? Common complaints after lumbar and/or thoracic spine surgery include, but are not limited to: numbness and/or tingling in the legs, pain around the incision and surrounding tissues, muscle spasms, or stiffness of the middle to low back. Contact our office if these symptoms persist or if an acute change occurs. ? No driving for the first 3-5days, and not while taking narcotics until seen at your follow-up appointment and cleared. There are no restrictions for riding on short trips, however if you take a longer trip, arrangements should be made to make regular stops to get out of the vehicle and stretch . ? Swelling is an unfortunate event that will take place with any surgery and is the primary source of your postoperative discomfort. While walking and regular approved activities helps control inflammation, there are additional steps you can take to minimizeswelling. > Place ice over the surgical site and surrounding tissue for twenty minutes, followed by applying a low/medium heat (heating pad) for an additional twenty minutes every 1-2 hours as needed for painrelief. > You may use of over the counter anti-inflammatory medications (Ibuprofen, Motrin, Aleve, Advil, etc) as directed on the package label. These types of medicines wm significantly reduce the amount of discomfort you experience after surgery from swelling. It should be noted that if you have and allergy to any of these medications, or a history of ulcers or kidney disease you should consult you primary care provider prior to starting these medications. Discharge Attestations Time Spent in Discharge Care*: less than 30 min Quality Metrics Clinical Quality Measures During this hospital stay, did patient experience: None Coding Level of Care Code Acute [facility] note Diagnoses Lumbar stenosis with neurogenic claudication M48.062 Moderate to severe pulmonary hypertension I27.20 Mild aortic stenosis I35.0 Cardiomyopathy I42.0 Cardiomyopathy type: dilated Chronic kidney disease N18.3 Chronic kidney disease stage: stage 3 (moderate)
[2020-09-16] MEDS: sodium chloride 0.9% 500 ML 999 ML IV (10:41)
--- NOTE | 2020-09-16 11:47 | PM.PN ---
Subjective Subjective: Interval history: Fredy feels better today. He denies any difficulty urinating. He is not dizzy. Medications: Reviewed: Yes Vitals/I&O/Wt Last Vital Signs Temp 97.6 F 09/16/20 11:45 Pulse 74 09/16/20 11:45 Resp 18 09/16/20 11:45 BP 134/82 09/16/20 11:45 Pulse Ox 95 09/16/20 11:45 09/15/20 09/16/20 09/16/20 22:59 06:59 14:59 Intake Total 50 / 1100 350 / 1450 290 / 290 Output Total 1285 / 1885 830 / 2715 Balance -1235 / -785 -480 / -1265 290 / 290 Physical Exam Narrative: EXAM NARRATIVE: General exam is a sleepy black male in no apparent distress Neck is supple no lymphadenopathy or thyromegaly Cardiovascular regular rate and rhythm without murmur, no S3 or S4 Lungs diminished breath sounds bilaterally but no wheezing or crackles Abdomen demonstrates a binder but no obvious organosplenomegaly. Bowel sounds are noted Extremities no cyanosis clubbing or edema. No difficulties with dorsiflexion Urinary Catheter Management^: F: Cath Placed During This Visit: yes, but has since been removed by the nurse Urinary Catheter Date of Insertion: 09/15/20 Urinary Catheter Time of Insertion: 07:15 Date Urinary Catheter Removed: 09/15/20 Time Urinary Catheter Discontinued: 10:31 Data : 09/16/20 02:28 09/16/20 02:28 A&P Assessment and plan (1) Lumbar stenosis with neurogenic claudication: Postoperative day #1 L3/4 fusion. Surgery managing Status: Acute (2) Moderate to severe pulmonary hypertension: Stable currently Status: Acute (3) Mild aortic stenosis: Stable currently Status: Acute (4) Cardiomyopathy: history of ischemic cardiomyopathy with last EF around 40%. Currently compensated. Holding Lasix, potassium secondary to renal dysfunction Status: Acute Qualifiers: Cardiomyopathy type: dilated Qualified Code(s): I42.0 - Dilated cardiomyopathy (5) Chronic kidney disease: Baseline creatinine around 2.7. Currently it is 4.0. This is consistent with acute kidney injury. He has had a rather recent ultrasound demonstrating no obstruction, medical renal disease. Avoid renal toxic medication 500 cc bolus, increase fluids slightly Check BMP this afternoon Low potassium diet Hold discharge, reevaluate renal function tomorrow. Patient indicates he has nephrology follow-up as an outpatient, to become established. Status: Acute Qualifiers: Chronic kidney disease stage: stage 3 (moderate) Qualified Code(s): N18.3 - Chronic kidney disease, stage 3 (moderate) Additional A&P Information Full code Changed to heparin for DVT prophylaxis secondary to patient's renal function. Thank you for this consultation. Attestations Medical Necessity Statement*: Needs continued hospital stay secondary to acute kidney injury, superimposed on chronic kidney disease. 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
[2020-09-16] MEDS: lactated ringers 1,000 ML 50 ML IV (15:14)
[2020-09-16 17:09] LABS: Anion Gap 17.4 (5-19); Blood Urea Nitrogen 54 mg/dL (8-23); Carbon Dioxide 19 mmol/L (22-29); Chloride 108 mmol/L (98-107); Glomerular Filtration Rate 21.4 mL/min (90-130); Glucose 129 mg/dL (65-115); Osmolality Calculated 304 mOsm/kg (285-295); Potassium 5.4 mmol/L (3.5-5.1); Sodium 139 mmol/L (136-145)
[2020-09-16] MEDS: sodium polystyrene sulfonate 15 gm/60 mL Btl 30 GM PO (17:55)
--- NOTE | 2020-09-16 18:28 | PC.NURSE ---
SHIFT SUMMARY PATIENT HAS AMBULATED WELL TODAY. HE HAS SET UP A LOT TODAY. THIS NURSE REMOVED HEMOVAC THIS MORNING. SURGICAL DRESSING CLEAN AND DRY. PAIN WELL CONTROLLED. GOOD URINE OUTPUT. NO COMPLAINTS AT THIS TIME.
[2020-09-16] MEDS: alum-mag-hydroxide-sime 30 mL UDC PO (20:43)
[2020-09-17] VITALS (8 sets, daily range): BP systolic 120–145; BP diastolic 79–85; PULSE 75–92; RESP 17–24; TEMP 36.7–37.1; O2SAT 95–98
[2020-09-17 03:11] LABS: Anion Gap 14.6 (5-19); Blood Urea Nitrogen 48 mg/dL (8-23); Calcium 7.6 mg/dL (8.5-10.5); Carbon Dioxide 20 mmol/L (22-29); Chloride 110 mmol/L (98-107); Glomerular Filtration Rate 22.1 mL/min (90-130); Glucose 137 mg/dL (65-115); Osmolality Calculated 305 mOsm/kg (285-295); Potassium 4.6 mmol/L (3.5-5.1); Sodium 140 mmol/L (136-145)
[2020-09-17] MEDS: lactated ringers 1,000 ML 50 ML IV (04:08)
[2020-09-17] MEDS: morphine 4 mg/mL SDV 1 mL 2 MG IVP ×2 (04:15→11:55)
[2020-09-17] MEDS: heparin 5,000 unit/mL INJ 1 mL 5000 UNIT SUBCUT (06:25)
--- NOTE | 2020-09-17 07:13 | P.PN_ITS ---
Subjective Subjective: Interval history: Pain controlled Vitals/I&O/Wt Last Vital Signs Temp 98.0 F 09/17/20 04:00 Pulse 81 09/17/20 04:00 Resp 24 H 09/17/20 04:15 BP 145/79 09/17/20 04:00 Pulse Ox 95 09/17/20 04:00 09/16/20 09/17/20 09/17/20 22:59 06:59 14:59 Intake Total 120 / 1650 965 / 2615 Output Total 300 / 600 650 / 1250 Balance -180 / 1050 315 / 1365 Physical Exam Narrative: EXAM NARRATIVE: Incision clean dry and intact Urinary Catheter Management^: F: Cath Placed During This Visit: yes, but has since been removed by the nurse Urinary Catheter Date of Insertion: 09/15/20 Urinary Catheter Time of Insertion: 07:15 Date Urinary Catheter Removed: 09/15/20 Time Urinary Catheter Discontinued: 10:31 Data : 09/16/20 02:28 09/17/20 02:11 A&P Assessment and plan (1) Lumbar stenosis with neurogenic claudication: POD #[address] Calvillo recommendations for D/C planning Status: Acute Attestations Medical Necessity Statement*: Renal disease Coding Level of Care Code 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
[2020-09-17] MEDS: docusate sodium 100 mg Capsule PO (08:40)
[2020-09-17] MEDS: tamsulosin 0.4 mg Capsule PO (08:40)
[2020-09-17] MEDS: carvedilol 12.5 mg Tablet PO (08:40)
[2020-09-17] MEDS: clopidogrel 75 mg Tablet PO (08:40)
[2020-09-17] MEDS: amlodipine 10 mg Tablet PO (08:40)
[2020-09-17] MEDS: HYDROcodone-acetaminophen 5-325 mg Tablet PO (08:40)
[2020-09-17] MEDS: isosorbide mononitrate ER 30 mg Tablet PO (08:40)
[2020-09-17] MEDS: hyDRALAzine 50 mg Tablet PO ×2 (08:40→14:56)
--- NOTE | 2020-09-17 08:49 | PM.PN ---
Subjective Subjective: Interval history: Complains of some back pain. Otherwise urinating well and no other complaints. Denies being short of breath. Medications: Reviewed: Yes Vitals/I&O/Wt Last Vital Signs Temp 98.0 F 09/17/20 04:00 Pulse 92 09/17/20 07:37 Resp 17 09/17/20 07:34 BP 145/79 09/17/20 04:00 Pulse Ox 97 09/17/20 07:34 09/16/20 09/17/20 09/17/20 22:59 06:59 14:59 Intake Total 120 / 1650 965 / 2615 120 / 120 Output Total 300 / 600 1750 / 2350 630 / 630 Balance -180 / 1050 -785 / 265 -510 / -510 Physical Exam Narrative: EXAM NARRATIVE: General exam no apparent distress, conversive Cardiovascular regular rate and rhythm without murmur, no S3 or S4 Lungs diminished breath sounds bilaterally but no wheezing or crackles Abdomen demonstrates a binder but no obvious organosplenomegaly. Bowel sounds are noted Extremities no cyanosis clubbing or edema. No difficulties with dorsiflexion Urinary Catheter Management^: F: Cath Placed During This Visit: yes, but has since been removed by the nurse Urinary Catheter Date of Insertion: 09/15/20 Urinary Catheter Time of Insertion: 07:15 Date Urinary Catheter Removed: 09/15/20 Time Urinary Catheter Discontinued: 10:31 Data : 09/16/20 02:28 09/17/20 02:11 A&P Assessment and plan (1) Lumbar stenosis with neurogenic claudication: Postoperative day #2 L3/4 fusion. Surgery managing Status: Acute (2) Moderate to severe pulmonary hypertension: Stable currently Status: Acute (3) Mild aortic stenosis: Stable currently Status: Acute (4) Cardiomyopathy: history of ischemic cardiomyopathy with last EF around 40%. Currently compensated. Holding Lasix, potassium secondary to renal dysfunction Status: Acute Qualifiers: Cardiomyopathy type: dilated Qualified Code(s): I42.0 - Dilated cardiomyopathy (5) Chronic kidney disease: Baseline creatinine around 2.7. 4.0 yesterday. Currently recovering at 3.4. Recent ultrasound demonstrating no obstruction, medical renal disease. Avoid renal toxic medication, including NSAIDs Renal function has recovered enough that he may be discharged home No Lasix today, can resume tomorrow Discontinue potassium BMP in 2 days with primary care provider Patient indicates he has nephrology follow-up as an outpatient, to become established. Status: Acute Qualifiers: Chronic kidney disease stage: stage 3 (moderate) Qualified Code(s): N18.3 - Chronic kidney disease, stage 3 (moderate) Additional A&P Information Full code Changed to heparin for DVT prophylaxis secondary to patient's renal function. Thank you for this consultation. Attestations Medical Necessity Statement*: As per primary, potential discharge today. 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
--- NOTE | 2020-09-17 11:03 | PC.NURSE ---
Dr Calvillo called to let me know that patient was ready to go on his end. Dr. Jj is ok with discharge at this point as well.
--- NOTE | 2020-09-17 15:51 | PC.SOCIAL ---
Nurse Donna called and stated that patient needs a walker. Nurse put order in but patient had already left at this time. Attempted to call patient and the phone number wasn't a working number. Attempted to call daughter and left a voicemail. Per patient's record from a say in June his DME choice was home, so walker order was faxed to [email or web address]
--- NOTE | 2020-09-17 16:10 | PC.SOCIAL ---
Called son at [phone] and updated him that the walker order was sent to home and that he could pick that up for his dad.
--- NOTE | 2020-09-18 16:40 | P.DS_ITS ---
Discharge Providers Date of Admission: 09/15/20 10:23 Date of Discharge: September 18, 2020 Attending Provider at Admission: James Jj DO Attending Provider at Discharge: James Jj DO Primary Care Provider: Jane Vega MD Diagnoses at Discharge Discharge Diagnosis (1) Lumbar stenosis with neurogenic claudication: Status: Acute (2) Moderate to severe pulmonary hypertension: Status: Acute Permanent problem details: 12/07/2018: 70 mmHg (3) Mild aortic stenosis: Status: Acute Permanent problem details: 12/07/2018: Mean gradient 4.6 mmHg, aortic valve area 2.2 cm? (4) Cardiomyopathy: Status: Acute Qualifiers: Cardiomyopathy type: dilated Qualified Code(s): I42.0 - Dilated cardiomyopathy (5) Chronic kidney disease: Status: Acute Qualifiers: Chronic kidney disease stage: stage 3 (moderate) Qualified Code(s): N18.3 - Chronic kidney disease, stage 3 (moderate) Reason for Visit Reason for Visit: plif Hospital Course Hospital Course Patient was admitted on 09/15/2020. Patient had a revision posterior lumbar interbody fusion at L3-4. Patient tolerated procedure well his stay was uneventful. He was discharged on 09/16/2020. Physical Exam Urinary Catheter Management^: F: Cath Placed During This Visit: yes, but has since been removed by the nurse Urinary Catheter Date of Insertion: 09/15/20 Urinary Catheter Time of Insertion: 07:15 Date Urinary Catheter Removed: 09/15/20 Time Urinary Catheter Discontinued: 10:31 Discharge Data Data Completed and Pending: Completed Studies During Hospitalization Category Date Time Status XR lumbar spine 2 -3V* [id number] Routine Exams 09/15/20 Completed Vitals: Last Vital Signs Temp 98.8 F 09/17/20 11:22 Pulse 82 09/17/20 11:22 Resp 17 09/17/20 16:59 BP 138/79 09/17/20 11:22 Pulse Ox 98 09/17/20 11:22 Discharge Plan Discharge Patient Disposition: Home Condition: Stable Prescriptions: New hydrocodone-acetaminophen 5-325 mg tablet 1 - 2 tab PO .Q4-6H Qty: 40 RF: 0 Continued albuterol sulfate 90 mcg/actuation HFA aerosol inhaler 2 inh INHALATION Q4H PRN (Reason: shortness of breath or wheezing) Qty: 8.5 RF: 0 carvedilol 12.5 mg tablet 12.5 mg PO BID Qty: 60 RF: 3 tramadol 50 mg tablet 50 mg PO Q12H PRN (Reason: pain) 30 Days Qty: 45 RF: 0 Nitrostat 0.4 mg tablet, sublingual 0.4 mg SUBLINGUAL Q5M PRN (Reason: Chest Pain) Qty: 25 RF: 0 clopidogrel 75 mg tablet 75 mg PO DAILY Qty: 90 RF: 4 amlodipine 10 mg tablet 10 mg PO DAILY Qty: 90 RF: 3 isosorbide mononitrate 30 mg tablet extended release 24 hr 30 mg PO DAILY Qty: 90 RF: 2 furosemide 40 mg tablet 40 mg PO DAILY PRN (Reason: Edema) Qty: 90 RF: 1 fluticasone propion-salmeterol [Wixela Inhub] 250-50 mcg/dose Blister With Device 2 inh INHALATION BID PRN (Reason: UNKNOWN) RF: 0 tamsulosin 0.4 mg capsule 0.4 mg PO DAILY RF: 0 hydralazine 25 mg tablet 50 mg PO TID Qty: 180 RF: 0 Discontinued potassium chloride 20 mEq tablet extended release 20 meq PO DIRECTED Qty: 90 RF: 2 Discharge Orders: Discharge Order (Routine); Ordered 09/17/20 Ordered By: James Jj Other Ambulatory Orders: DME: Kevin (Order) Location: None Selected Ordered By: Mike Calvillo Referrals: James Jj DO [Physician] - 09/25/20 10:30 am Jane Vega MD [Primary Care Provider] - 09/22/20 2:00 pm (BMP on follow-up) Discharge Diet: Advance as tolerated Discharge Activity: Limit activity as instructed Patient Instructions: Hydrocodone/Acetaminophen (By mouth), Lumbar Spinal Fusion (GEN), Opioid Safety Activity Restrictions/Additional Instructions: Thank you for [facility] for your care! The following is a list of instructions, from your provider, to follow upon your discharge to ensure you have the optimal recovery from your recent injury orsurgery. Follow-up care is a rios part of your treatment and safety. Be sure to make and go to all appointments, and call your doctor if you are having problems. If you do not already have a follow-up appointment made, call Dr. Jj office in the next 1-3 days to make follow up appointment for 1 weeks at [phone]. It is also a good idea to know your test results and keep a list of the medicines you take. Medications will be prescribed for you at your provider's discretion. These medications are to be used as instructed; if they are taken more often that prescribed they will not be refilled early and in most cases will not be refilled at all. > When a refill is needed,you should contact meseret friedman 2-3 business days before your prescription runs out. Medications will NOT be refilled by oracle database consultant providers after hours! > Many pain medications contain Tylenol (Acetaminophen). Do not consume more than 4,000 mg of Tylenol per day in total with any combination ofmedications. > Pain medications can cause constipation. Please use an over the counter stool softener as directed, while taking pain medications. Consulty our local pharmacist with questions or recommendations on stool softeners. If constipation persists, contact our office or your primary care provider. > While under our care,you are not to receive pain medications or other controlled substances from any other provider unless our office is notified and approves. Any attempts to do so will result in refusal to prescribe any further pain medications and possible dismissal from our practice. ? Your wound and/or dressing should remain clean and dry until we see you in the office. > It is normal for there to be a small amount of discharge (bloody or blood tinged) present from a surgical wound for the first 1-3days. > ? Showering is permitted, however we ask that you do not take a bath, sit in a whirlpool / Jacuzzi, or go swimming for 1 month. For only the first 2 days after surgery, lt wilt be necessary for you to cover your wound/dressing with plastic and tape to keep it dry. ? Walking is essential for the healing process after surgery. We would like you to slowly advance your walking. This should be done on relatively flat clear ground (inside or out) or can be done on a treadmill. Remember this goal does not have to happen all at once, slowly increase your distance and duration. This can be broken into more more than one walk per day as tolerated. Patients who walk as directed after surgery rarely require Physical Therapy. In the unlikely event this issue arises your provider will direct hospital staff to make the appropriate arrangements. ? No lifting over 5 pounds {a gallon of milk) or bending/twisting until further notice. Each of these activities places an unnecessary amount of stress onto the body and can impede the delicate healing process. > Instead of bending at the waist, keep your back straight and bend at the knees. > Instead of twisting your torso, keep your back straight and turn your entire body with your feet. ? You may sleep in any position which makes you comfortable. Many patients find comfort sleeping in a reclining chair. It is not abnormal to have difficulty sleeping for the first several weeks following your surgery. We recommend trying Benadry! or Tylenol PM as directed to help with your sleeping difficulties. Both medications are over the counter and available withoutprescription. ? NO SMOKING!!! Smoking dramatically increases the probability of developing postoperative wound infections. ? Common complaints after lumbar and/or thoracic spine surgery include, but are not limited to: numbness and/or tingling in the legs, pain around the incision and surrounding tissues, muscle spasms, or stiffness of the middle to low back. Contact our office if these symptoms persist or if an acute change occurs. ? No driving for the first 3-5days, and not while taking narcotics until seen at your follow-up appointment and cleared. There are no restrictions for riding on short trips, however if you take a longer trip, arrangements should be made to make regular stops to get out of the vehicle and stretch . ? Swelling is an unfortunate event that will take place with any surgery and is the primary source of your postoperative discomfort. While walking and regular approved activities helps control inflammation, there are additional steps you can take to minimizeswelling. > Place ice over the surgical site and surrounding tissue for twenty minutes, followed by applying a low/medium heat (heating pad) for an additional twenty minutes every 1-2 hours as needed for painrelief. > Do not take your furosemide until tomorrow. Avoid all anti- inflammatories. Follow-up with Dr. Vega in 2 days with a BMP. Your potassium has been discontinued Discharge Attestations Time Spent in Discharge Care*: less than 30 min Quality Metrics Clinical Quality Measures During this hospital stay, did patient experience: None Coding Level of Care Code Acute Chg FW DC note Diagnoses Lumbar stenosis with neurogenic claudication M48.062 Moderate to severe pulmonary hypertension I27.20 Mild aortic stenosis I35.0 Cardiomyopathy I42.0 Cardiomyopathy type: dilated Chronic kidney disease N18.3 Chronic kidney disease stage: stage 3 (moderate)
== END 2020-09-17 16:00 | disposition home or self-care (01) ==
LOC: MEDSURG 10:24
PROVIDERS: Anesthesiology; Internal Medicine; Admitting Provider Orthopaedic Surgery; PCP Family Medicine; Visit Provider Orthopaedic Surgery
PROC: (CPT 22612; principal; 2020-09-15 07:00)
DX: M48.062 Spinal stenosis, lumbar region with neurogenic claudication (principal); I27.20 Pulmonary hypertension, unspecified; I35.0 Nonrheumatic aortic (valve) stenosis; I42.0 Dilated cardiomyopathy; N18.30 Chronic kidney disease, stage 3 unspecified; I12.9 Hypertensive chronic kidney disease with stage 1 through stage 4 chronic kidney disease, or unspecified chronic kidney disease; N40.1 Benign prostatic hyperplasia with lower urinary tract symptoms; N13.8 Other obstructive and reflux uropathy; E78.5 Hyperlipidemia, unspecified; F17.210 Nicotine dependence, cigarettes, uncomplicated
CPT/HCPCS: 20680; 20930; 20939; 22633; 22634 ×2; 22842; 22853; 61783; 63047; 36415; 51702; 72100; 76000; 80048; 80053; 85025; 93005; 94640; 96372; 97116; 97161; 97530; C1713; G0378; J0690; J1100; J1170; J1644; J1650; J2270; J2370; J2405; J2704; J3010; J3370; J3490; J7030; J7040

== ENCOUNTER → 2020-10-22 10:46 | Outpatient (BNVA) | payer MEDICARE, SELFPAY | PROVIDERS: PCP Family Medicine; Visit Provider Family Medicine Adult Medicine | DX: I12.9 Hypertensive chronic kidney disease with stage 1 through stage 4 chronic kidney disease, or unspecified chronic kidney disease (principal); N18.4 Chronic kidney disease, stage 4 (severe) | CPT/HCPCS: 80048 ==

== ENCOUNTER → 2020-10-23 14:11 | Outpatient (BNVA) | payer MEDICARE, SELFPAY | PROVIDERS: PCP Family Medicine; Visit Provider Orthopaedic Surgery | DX: Z48.89 Encounter for other specified surgical aftercare (principal); M48.062 Spinal stenosis, lumbar region with neurogenic claudication | CPT/HCPCS: 72100 ==

== ENCOUNTER 2020-11-03 01:07 | Emergency (ER) | payer MEDICARE, SELFPAY ==
[2020-11-03 01:15] VITALS: BP 155/103; PULSE 91; RESP 17; TEMP 36.7; O2SAT 100; BMI 25.4
--- NOTE | 2020-11-03 01:55 | CTR_ITS ---
PROCEDURE INFORMATION: Exam: CT Abdomen And Pelvis Without Contrast Exam date and time: 11/03/2020 1:55 AM Age: 65 years old Clinical indication: Abdominal pain; Flank; Left; Additional info: B flank pain TECHNIQUE: Imaging protocol: Computed tomography of the abdomen and pelvis without contrast. Radiation optimization: All CT scans at this facility use at least one of these dose optimization techniques: automated exposure control; mA and/or kV adjustment per patient size (includes targeted exams where dose is matched to clinical indication); or iterative reconstruction. COMPARISON: CT abdomen pelvis w con* [id number] 10/21/2016 12:51 PM RADIATION DOSE METRICS: Total DLP (mGy-cm): 1211.83 FINDINGS: Lungs: Continued slight stranding in the lung bases. Liver: No apparent interval liver disease. Gallbladder and bile ducts: Still no calcified gallstones or biliary ductal dilatation. Pancreas: No suggestion of interval pancreatic disease. Spleen: Still no splenomegaly. Adrenal glands: Still no adrenal mass. Kidneys and ureters: Interval enlargement of the 2.7 cm mass in the right lower renal cortex containing homogeneous water density. Interval appearance or enlargement of some of the smaller masses in both kidneys containing similar low density, also. Still no hydronephrosis. Interval appearance of some arterial calcifications in the kidneys. Stomach and bowel: Still no gastric distension. Interval elongation of the sigmoid colon into the middle to upper abdomen. Slight sigmoid diverticulosis more apparent than before. Questionable interval worsening of the mild to moderate descending diverticulosis. Still no obstruction. Appendix: No appendicitis. Intraperitoneal space: Still no free air. Vasculature: Continued atherosclerosis. Still no aortic aneurysm. Circumaortic left renal vein more apparent previously. Lymph nodes: Interval increase in size of multiple bilateral inguinal nodes as well as enlargement of 1 right external iliac node. Slight enlargement of a periportal node more apparent than before. No gross adenopathy elsewhere. Urinary bladder: Unremarkable as visualized. Reproductive: Continued prominent prostatic enlargement. Bones/joints: Tiny lowest ribs and 5 lumbar vertebral bodies still apparent. Continued bilateral pedicle screws in L4 and L5, but interval appearance of bilateral pedicle screws in L3 and connection of all of these pedicle screws by bilateral posterior rods. Interval resection of most of the L3 posterior elements and appearance of the spacing structure within the L3-L4 disc. L4 laminectomy and spacing structures in the narrowed L4-L5 disc again evident. A few old compression fractures still present. Interval minimal spondylolisthesis at L2-L3. Stable mild spondylolisthesis at L4-L5. Interval worsening of the annular bulging at L2-L3. Interval increase in size and number of the subchondral defects in the superior left femoral head. Mild right hip joint degeneration again evident. Continued heterogeneous sclerotic focus in the right superior ilium possibly due to an old infarct. Degeneration of both SI joints again evident. Partial inclusion of the continued skin mass in the lateral right hip region preventing good comparison. Soft tissues: Interval edema in the lumbar subcutaneous fat. CT/CT kidney stone [id number] IMPRESSION: 1. No apparent acute intra-abdominal disease on this noncontrast study. Interval enlargement or appearance of some of the renal masses consistent with cysts. 2. Interval increase in size of nodes in the inguinal regions as well as enlargement of 1 right external iliac node, significance unclear. 3. Continued prominent prostatic enlargement. 4. Interval appearance of some of the postsurgical changes in the lumbar spine as detailed above. Interval worsening of the annular bulging at L2-L3 and the degenerative subchondral defects in the left femoral head. Other findings detailed above. COMMENTS: Consistent with the [employer]'s Incidental Findings Committee white paper (J Am Zonia Radiol 2018): Any incidental renal lesion less than 1 cm or classified as too small to characterize, or any incidental cystic renal lesion characterized as simple-appearing, is likely benign. No follow-up imaging is recommended for these lesions per consensus recommendations based on imaging criteria. Radiation Dose CTDIVOL = (mGy): DLP = 1211.83 (mGy-cm)
--- NOTE | 2020-11-03 01:55 | CTR_ITS ---
NOTE: Report was unsigned for reason: Order was edited. Original Signature date and time was: 11/03/20 @ 0655 PROCEDURE INFORMATION: Exam: CT Lumbar Spine Without Contrast Exam date and time: 11/03/2020 1:55 AM Age: 65 years old Clinical indication: Low back pain; Prior surgery; Surgery date: 1-6 months; Additional info: B flank pain recent lumbar SX TECHNIQUE: Imaging protocol: Computed tomography images of the lumbar spine without contrast. Radiation optimization: All CT scans at this facility use at least one of these dose optimization techniques: automated exposure control; mA and/or kV adjustment per patient size (includes targeted exams where dose is matched to clinical indication); or iterative reconstruction. COMPARISON: MR lumbar spine wo con* [id number] 07/31/2020 10:16 AM RADIATION DOSE METRICS: Total DLP (mGy-cm): 2426.09 FINDINGS: Vertebrae: Tiny lowest ribs and 5 lumbar vertebral bodies mentioned in the recent abdomen/pelvis CT report. Multiple lumbar spine findings related to the prior and interval fixation surgery detailed in that report. Left L3-L4 and L4-L5 facetectomies also evident. Still no acute bony disease. Continued slight spondylolisthesis at L2-L3 and L4-L5 and old slight anterior wedging of T12 and L1. Discs/Spinal canal/Neural foramina: Continued mild foraminal annular bulging at L1-L2 without significant canal stenosis, but with [id number] bilateral foraminal stenosis. Very small calcification along the left side of the thecal sac at the lower L1 level, significance unclear. Continued prominent annular bulging at L2-L3 associated with mild canal stenosis and moderate to marked foraminal stenoses. Suboptimal detail of the L3-L4 disc due to artifacts, but annular bulging still present. No canal stenosis in light of the interval resection of posterior elements. Moderate to marked foraminal stenoses at this level still likely. Suboptimal detail of the L4-L5 disc due to artifacts. Annular bulging still possible. No canal stenosis secondary to the laminectomy. Significant foraminal stenoses still likely. Still no significant annular bulging or canal stenosis at L5-S1. Continued mild bilateral foraminal stenoses at this level. Soft tissues: Interval posterior subcutaneous edema[facility] lumbar spine w con [id number] IMPRESSION: Some of the lumbar spinal detail mentioned in the report of the recent abdomen/pelvis CT. Still no acute bony disease. Left L3-L4 and L4-L5 facetectomies now evident. Multilevel degenerative disease detailed above. Radiation Dose CTDIVOL = (mGy): DLP = 2426.09 (mGy-cm)
[2020-11-03] MEDS: ondansetron 2 mg/ML SDV 2 mL 4 MG IVP (02:30)
[2020-11-03 02:35] VITALS: RESP 20; O2SAT 97
[2020-11-03] MEDS: morphine 4 mg/mL SDV 1 mL IVP ×2 (02:35→04:08)
[2020-11-03 02:59] LABS: Basophils % 0.5 %; Eosinophils # 0.2 10^3/uL (0.0-0.8); Eosinophils % 2.4 %; Hematocrit 30.1 % (42.0-52.0); Hemoglobin 9.7 g/dL (11.7-16.6); Lymphocytes # 1.2 10^3/uL (0.8-4.8); Lymphocytes % 14.2 %; Mean Corpuscular HGB Conc 32.2 g/dL (30.0-36.0); Mean Corpuscular Volume 96.2 fL (80-94); Mean Platelet Volume 9.8 fL (7.4-10.4); Monocytes # 0.8 10^3/uL (0.2-0.9); Monocytes % 8.7 %; Neutrophils # 6.37 10^3/uL (1.8-7.7); Nucleated Red Blood Cells % 0 %; Platelet Count 358 10^3/cmm (130-400); Red Blood Count 3.13 10^6/uL (4.1-5.3); Red Cell Distribution Width 14.1 % (12.1-15.1); White Blood Count 8.6 10^3/uL (4.0-10.0)
[2020-11-03 03:19] LABS: Add Urine Microscopic? YES; Bilirubin Urine Neg (Negative); Blood Urine Neg (Negative); Glucose Urine UA Norm (Normal); Ketones Urine Negative (Negative); Leukocyte Esterase Urine 2+ (Negative); Nitrate Urine Negative (Negative); Protein Urine Neg (Negative); Urine Appearance Clear (CLEAR); Urine Color Yellow (Yellow); Urobilinogen Urine Norm (Negative); pH Urine 6.5 (5-7)
[2020-11-03 03:26] LABS: Add Urine Culture? No; Bacteria Urine TRACE /hpf; RBC Urine 0-4 /hpf (0-2)
[2020-11-03 03:28] LABS: Alanine Aminotransferase 16 U/L (0-41); Albumin Level 3.2 g/dL (3.5-5.2); Alkaline Phosphatase 116 IU/L (40-130); Anion Gap 15.5 (5-19); Aspartate Amino Transferase 26 U/L (0-40); Blood Urea Nitrogen 47 mg/dL (8-23); C Reactive Protein 0.5 mg/L (0.0-4.9); Calcium 8.1 mg/dL (8.5-10.5); Carbon Dioxide 17 mmol/L (22-29); Chloride 106 mmol/L (98-107); Creatine Phosphokinase 92 U/L (39-308); Globulin 3.7 g/dL (1.3-4.6); Glomerular Filtration Rate 24.6 mL/min (90-130); Glucose 107 mg/dL (65-115); Lipase 83 U/L (13-60); Magnesium 2.1 mg/dL (1.7-2.3); Osmolality Calculated 291 mOsm/kg (285-295); Phosphorus 3.5 mg/dL (2.5-4.5); Potassium 4.5 mmol/L (3.5-5.1); Sodium 134 mmol/L (136-145); Total Bilirubin 0.2 mg/dL (0.15-1.2); Total Protein 6.9 g/dL (6.6-8.7)
[2020-11-03 04:08] VITALS: RESP 18; O2SAT 97
[2020-11-03 04:21] VITALS: BP 151/100; O2SAT 98
[2020-11-03] MEDS: cefTRIAXone 1,000 MG in sodium chloride 0.9% (plus) 100 ML 200 MG IV (05:45)
--- NOTE | 2020-11-03 06:47 | W.ED.BACK ---
HPI - Back Pain/Injury General: Chief Complaint: Back Pain/Injury Stated Complaint: Kidney Pain Time Seen by Provider: 11/03/20 01:30 History of Present Illness: HPI Narrative: 65-year-old gentleman, evidently with a history of chronic kidney disease and polycystic kidneys. He presents with his bilateral flank pain as well as some low back pain. He also had a recent lumbar fusion surgery done by orthospine. He denies any fever. He states the pain is over his left and right flank. No change in his urine. No dysuria MD elicited complaint: back pain Pertinent past history: prior back pain, back surgery and other Onset (ago): hour(s) Timing: constant Severity: moderate Similar Symptoms Previously: Yes Quality: stabbing Radiation: none Associated symptoms: Deny abdominal pain, chills, difficulty walking, fever(s) or nausea Review of Systems Const: Denies: fever(s) or chills Card: Denies: chest pain or palpitations Resp: Denies: dyspnea GI: Denies: abdominal pain or nausea Neuro: Denies: difficulty walking PFSH ED PFSH: Medical History Abnormal ultrasound of kidney Acute kidney injury superimposed on chronic kidney disease BPH NOS w ur obs/LUTS Cardiomyopathy Chronic kidney disease CKD (chronic kidney disease) stage 4, GFR 15-29 ml/min Combined systolic and diastolic cardiac dysfunction Elevated PSA History of pulmonary embolism Hyperlipidemia Hypersomnolence Hypertension Hypertensive urgency Insomnia Ischemic cardiomyopathy Left shoulder pain Mild aortic regurgitation Mild aortic stenosis 12/07/2018: Mean gradient 4.6 mmHg, aortic valve area 2.2 cm? Moderate pulmonary arterial systolic hypertension Moderate to severe pulmonary hypertension 12/07/2018: 70 mmHg Presence of stent in LAD coronary artery Sebaceous cyst Shortness of Breath Smoking Tinea pedis of right foot Surgical History H/O abdominal surgery hernia History of ankle surgery History of back surgery Family History Family/Other Cancer Mother Dementia Diabetes Sister Diabetes CAD (coronary artery disease) Father , AT AGE 78 Brain aneurysm Denies family history of Clotting disorder Hyperlipidemia Psychiatric illness Chronic kidney disease (CKD) Suicide Anesthesia complication Bleeding disorder Family history of premature coronary artery disease Lung disease Hypertension Stroke Social History Smoking and tobacco status: light tobacco smoker cigarettes Years cigarettes smoked: 20 Quit status (tobacco): considering quitting Alcohol intake: current Alcohol intake frequency: few times a month Marital status: Current occupational status: disabled History of recent travel: No Physical Exam Const: GENERAL APPEARANCE: well developed ORIENTATION/CONSCIOUSNESS: Yes oriented to person, Yes oriented to place and Yes oriented to time HENMT: COMMON NORMALS: normocephalic, external ears normal and Normal external nose present HEAD & SCALP: normocephalic FACE & SINUS: normal facial exam NOSE: Normal external nose present and No nasal discharge present EXTERNAL EAR: Yes external ears normal Eye: COMMON NORMALS: Equal, round and reactive pupils present, EOMs intact bilaterally and conjunctivae normal EYELID: eyelids normal CONJUNCTIVA: Yes conjunctivae normal PUPIL: Yes Equal, round and reactive pupils present Neck/C-Spine: GENERAL: No tracheal deviation Chest: COMMONS NORMALS: normal inspection of the chest CHEST: No tenderness Resp: COMMON NORMALS: clear to auscultation bilaterally EFFORT & INSPECTION: No tachypneic, No respiratory distress, No retractions, No uses accessory muscles and No tracheal deviation AUSCULTATION: clear to auscultation bilaterally, no rhonchi, no wheezes and lung sounds not diminished Cardio: COMMON NORMALS: regular rate and regular rhythm RATE: regular rate RHYTHM: regular rhythm HEART SOUNDS: no murmurs PERIPHERAL PULSES: radial pulses present GI: INSPECTION: No abdominal distension AUSCULTATION: No Hyperactive bowel sounds present and No Hypoactive bowel sounds present PALPATION: No Guarding due to palpation present (GI) and No Rigid due to palpation PERCUSSION: no dullness to percussion and no tympanic to percussion : BLADDER/KIDNEY EXAM: Yes CVA tenderness bilateral Back/Pelvis: GENERAL BACK: Yes CVA tenderness Neuro: SENSORIUM/ORIENTATION: Yes oriented to person, Yes oriented to place and Yes oriented to time Psych: COMMON NORMALS: mental status grossly normal Skin: COMMON NORMALS: no rashes or lesions noted GENERAL SKIN EXAM: no rashes or lesions noted Course Vital Signs: Vital signs: Vital Signs Temperature 98.1 F 11/03/20 01:15 Pulse Rate 91 08/02/21 01:15 Respiratory Rate 18 11/03/20 04:08 Blood Pressure 151/100 11/03/20 04:21 Pulse Oximetry 98 11/03/20 04:21 MDM - Back Pain/Injury MDM Narrative: Medical decision making narrative: 65-year-old gentleman with polycystic kidneys and chronic renal failure. His creatinine is at baseline. He has a mild urinary tract infection with CT shows essentially no acute findings. He was counseled on this diagnosis. He has nephrology follow-up. Symptomatic treatment and antibiotics. Lab Data: Labs: Lab Results 11/03/20 11/03/20 11/03/20 Range/Units 02:30 02:30 02:38 WBC 8.6 (4.0-10.0) 10^3/ uL RBC 3.13 L (4.1-5.3) 10^6/u L Hgb 9.7 L (11.7-16.6) g/dL Hct 30.1 L (42.0-52.0) % MCV 96.2 H (80-94) fL MCH 31.0 (28.0-34.0) pg MCHC 32.2 (30.0-36.0) g/dL RDW 14.1 (12.1-15.1) % Plt Count 358 (130-400) 10^3/c mm MPV 9.8 (7.4-10.4) fL Neut % (Auto) 74.0 % Lymph % (Auto) 14.2 % [place] % (Auto) 8.7 % Eos % (Auto) 2.4 % Baso % (Auto) 0.5 % Neut # (Auto) 6.37 (1.8-7.7) 10^3/u L Lymph # (Auto) 1.2 (0.8-4.8) 10^3/u L [place] # (Auto) 0.8 (0.2-0.9) 10^3/u L Eos # (Auto) 0.2 (0.0-0.8) 10^3/u L Baso # (Auto) 0.0 (0.0-0.1) 10^3/u L Nucleated RBC % (a uto) 0 % Nucleated RBCs # 0.0 /100WBC Sodium 134 L (136-145) mmol/L Potassium 4.5 (3.5-5.1) mmol/L Chloride 106 (98-107) mmol/L Carbon Dioxide 17 L (22-29) mmol/L Anion Gap 15.5 (5-19) BUN 47 H (8-23) mg/dL Creatinine 3.1 H (0.7-1.2) mg/dL GFR Calculation 24.6 L (90-130) mL/min Glucose 107 (65-115) mg/dL Calculated Osmolal ity 291 (285-295) mOsm/k g Calcium 8.1 L (8.5-10.5) mg/dL Phosphorus 3.5 (2.5-4.5) mg/dL Magnesium 2.1 (1.7-2.3) mg/dL Total Bilirubin 0.2 (0.15-1.2) mg/dL AST 26 (0-40) U/L ALT 16 (0-41) U/L Alkaline Phosphata se 116 (40-130) IU/L Creatine Kinase 92 (39-308) U/L C-Reactive Protein 0.5 (0.0-4.9) mg/L Total Protein 6.9 (6.6-8.7) g/dL Albumin 3.2 L (3.5-5.2) g/dL Globulin 3.7 (1.3-4.6) g/dL Lipase 83 H (13-60) U/L Urine Color Yellow (Yellow) Urine Appearance Clear (CLEAR) Urine pH 6.5 (5-7) Ur Specific Gravit y 1.010 (1.005-1.030) Urine Protein Neg (Negative) Urine Glucose (UA) Norm (Normal) Urine Ketones Negative (Negative) Urine Blood Neg (Negative) Urine Nitrate Negative (Negative) Urine Bilirubin Neg (Negative) Urine Urobilinogen Norm (Negative) mg/dL Ur Leukocyte Missy ase 2+ H (Negative) Urine RBC 0-4 H (0-2) /hpf Urine WBC 5-10 H (0-5) /hpf Ur Squamous Epith Cells 5-10 H (0-5) /hpf Amorphous Sediment Not Reportable Urine Bacteria Trace (NONE) /hpf Discharge Plan Discharge Patient Disposition: Home Clinical Impression: Bilateral renal colic, Adult polycystic kidney disease Urinary tract infection Qualifiers: Urinary tract infection type: acute cystitis Hematuria presence: without hematuria Qualified Code(s): N30.00 - Acute cystitis without hematuria Condition: Stable Prescriptions: New Percocet 7.5-325 mg tablet 1 tab PO Q6H PRN (Reason: pain) Qty: 7 RF: 0 cefdinir 300 mg capsule 300 mg PO DAILY 10 Days Qty: 10 RF: 0 No Action clotrimazole-betamethasone 1-0.05 % cream 1 applic topical BID Qty: 45 RF: 1 amitriptyline 25 mg tablet 25 mg PO DAILY Qty: 30 RF: 0 albuterol sulfate 90 mcg/actuation HFA aerosol inhaler 2 inh INHALATION Q4H PRN (Reason: shortness of breath or wheezing) Qty: 8.5 RF: 0 hydrocodone-acetaminophen 5-325 mg tablet 1 - 2 tab PO .Q4-6H 7 Days Qty: 40 RF: 0 carvedilol 25 mg tablet 25 mg PO BID Qty: 60 RF: 3 tramadol 50 mg tablet 50 mg PO Q12H PRN (Reason: pain) 30 Days Qty: 45 RF: 0 Nitrostat 0.4 mg tablet, sublingual 0.4 mg SUBLINGUAL Q5M PRN (Reason: Chest Pain) Qty: 25 RF: 0 clopidogrel 75 mg tablet 75 mg PO DAILY Qty: 90 RF: 4 amlodipine 10 mg tablet 10 mg PO DAILY Qty: 90 RF: 3 isosorbide mononitrate 30 mg tablet extended release 24 hr 30 mg PO DAILY Qty: 90 RF: 2 furosemide 40 mg tablet 40 mg PO DAILY PRN (Reason: Edema) Qty: 90 RF: 1 (DME) Cane See Rx Instructions .Route .MEDSUPPLY Qty: 1 RF: 0 fluticasone propion-salmeterol [Wixela Inhub] 250-50 mcg/dose Blister With Device 2 inh INHALATION BID PRN (Reason: UNKNOWN) RF: 0 tamsulosin 0.4 mg capsule 0.4 mg PO DAILY RF: 0 hydralazine 25 mg tablet 50 mg PO TID Qty: 180 RF: 0 Discharge Orders: Discharge ED (Routine); Ordered 11/03/20 Ordered By: Roc Montes Referrals: Jane Vega MD [Primary Care Provider] - 1-3 days Discharge Diet: Advance as tolerated Discharge Activity: Increase activity as tolerated Patient Instructions: Urinary Tract Infection in Men (ED), Autosomal Dominant Polycystic Kidney Disease (ED), Flank Pain (ED), Opioid Safety Activity Restrictions/Additional Instructions: Return for fever greater than 100, worsening pain despite treatment, change in color of urine, mental status changes, any other concerning symptoms. 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
[2020-11-03 07:14] VITALS: BP 138/98; PULSE 84; RESP 20
== END 2020-11-03 06:55 | disposition home or self-care (01) ==
PROVIDERS: Emergency Provider Emergency Medicine; PCP Family Medicine
DX: N30.00 Acute cystitis without hematuria (principal); Q61.2 Polycystic kidney, adult type; N23 Unspecified renal colic; Z79.02 Long term (current) use of antithrombotics/antiplatelets; I12.9 Hypertensive chronic kidney disease with stage 1 through stage 4 chronic kidney disease, or unspecified chronic kidney disease; N18.4 Chronic kidney disease, stage 4 (severe); Z86.711 Personal history of pulmonary embolism; E78.5 Hyperlipidemia, unspecified; F17.210 Nicotine dependence, cigarettes, uncomplicated
CPT/HCPCS: 72131; 72132; 74176; 80053; 81001; 82550; 83690; 83735; 84100; 85025; 86140; 96365; 96375; 96376; 99284; J0696; J2270; J2405

== ENCOUNTER 2020-11-28 15:40 | Emergency (ER) | payer MEDICARE, SELFPAY ==
--- NOTE | 2020-11-28 | USR_ITS ---
[address] [address] Ultrasound Report Signed Patient: Fredy Hammonds Unit #: [id number] : 1955 Age/Sex: 65 / M ADM Date: 11/28/20 Loc: ER Room/Bed: Attending Dr: Ordering Provider/Ordering MD: Monse Mohamud Date of Service: 11/28/20 Procedure(s): [place] [address] Accession Number(s): [id number] Report Number: [id number] PROCEDURE INFORMATION: Exam: US Duplex Right Upper Extremity Arteries Exam date and time: 11/28/2020 6:10 PM Age: 65 years old Clinical indication: Pain; Arm, upper and arm, lower; Right; Patient HX: PT denies any trauma or needle sticks or ivs; Additional info: Pain/swelling TECHNIQUE: Imaging protocol: Right Real-time ultrasound scan of the arteries of the right upper extremity with 2-D pedraza scale, color Doppler flow and spectral waveform analysis. COMPARISON: CR (UP EX, ) 11/28/2020 6:29 PM FINDINGS: The right carotid artery appears normal. The right subclavian artery the appears normal. The axillary artery appears normal. The brachial artery appears normal. The radial and ulnar arteries appear normal. Normal triphasic waveforms are identified. IMPRESSION: Normal right upper extremity arteries. PROCEDURE INFORMATION: Exam: US Duplex Right Upper Extremity Veins, Limited Exam date and time: 11/28/2020 6:10 PM Age: 65 years old Clinical indication: Pain; Arm, upper and arm, lower; Right; Patient HX: PT denies any trauma or needle sticks or ivs; Additional info: Pain/swelling TECHNIQUE: Imaging protocol: Real-time Duplex ultrasound of the Right Upper Extremity with 2-D pedraza scale, color Doppler flow and spectral waveform analysis with image documentation. Limited exam focused on the right upper extremity veins. COMPARISON: CR (UP EXM, ) 11/28/2020 6:29 PM FINDINGS: The there is normal blood flow within the internal jugular vein. There is normal flow and compressibility of the subclavian vein. There is normal flow and compressibility of the axillary vein. There is normal flow and compressibility of the brachial vein. There is normal flow within the cephalic and basilic veins. There is normal flow within the radial and ulnar [place]. US/[place] [address] IMPRESSION: No evidence for deep venous thrombosis within the right upper extremity. Dictated By: Artem Holder MD Signed By: Artem Holder MD Signed Date/Time: 11/28/201952 DD/ [facility]
[2020-11-28 16:23] VITALS: BP 147/102; PULSE 99; RESP 18; TEMP 37; O2SAT 99; BMI 27.3
[2020-11-28 18:05] VITALS: PULSE 88
--- NOTE | 2020-11-28 18:10 | USR_ITS ---
PROCEDURE INFORMATION: Exam: US Duplex Right Upper Extremity Arteries Exam date and time: 11/28/2020 6:10 PM Age: 65 years old Clinical indication: Pain; Arm, upper and arm, lower; Right; Patient HX: PT denies any trauma or needle sticks or ivs; Additional info: Pain/swelling TECHNIQUE: Imaging protocol: Right Real-time ultrasound scan of the arteries of the right upper extremity with 2-D pedraza scale, color Doppler flow and spectral waveform analysis. COMPARISON: CR ( EX, ) 11/28/2020 6:29 PM FINDINGS: The right carotid artery appears normal. The right subclavian artery the appears normal. The axillary artery appears normal. The brachial artery appears normal. The radial and ulnar arteries appear normal. Normal triphasic waveforms are identified. IMPRESSION: Normal right upper extremity arteries. PROCEDURE INFORMATION: Exam: US Duplex Right Upper Extremity Veins, Limited Exam date and time: 11/28/2020 6:10 PM Age: 65 years old Clinical indication: Pain; Arm, upper and arm, lower; Right; Patient HX: PT denies any trauma or needle sticks or ivs; Additional info: Pain/swelling TECHNIQUE: Imaging protocol: Real-time Duplex ultrasound of the Right Upper Extremity with 2-D pedraza scale, color Doppler flow and spectral waveform analysis with image documentation. Limited exam focused on the right upper extremity veins. COMPARISON: CR ([facility], ) 11/28/2020 6:29 PM FINDINGS: The there is normal blood flow within the internal jugular vein. There is normal flow and compressibility of the subclavian vein. There is normal flow and compressibility of the axillary vein. There is normal flow and compressibility of the brachial vein. There is normal flow within the cephalic and basilic veins. There is normal flow within the radial and ulnar [place]. US/[place] [address] IMPRESSION: No evidence for deep venous thrombosis within the right upper extremity.
--- NOTE | 2020-11-28 18:10 | XRR_ITS ---
PROCEDURE INFORMATION: Exam: XR Right Hand Exam date and time: 11/28/2020 6:10 PM Age: 65 years old Clinical indication: Pain; Hand; Right; Additional info: Swelling/pain TECHNIQUE: Imaging protocol: XR Right hand. Views: 3 or more views. COMPARISON: No relevant prior studies available. FINDINGS: No fractures are identified. The fingers are flexed making it difficult to evaluate the interphalangeal joints. There do appear to be degenerative changes involving the 4th DIP joint. There is spurring and sclerosis at the 1st MCP joint. There is some narrowing of the MCP joints. There is normal alignment of the carpal bones. There is no evidence for acute fracture. There is no foreign body. Vascular calcifications are noted. XR/XR hand RT min 3V* 25050 IMPRESSION: 1. Degenerative changes as described. 2. No evidence for fracture or acute bony destruction.
--- NOTE | 2020-11-28 18:12 | W.ED.EXTPRO ---
Documented by User: RICHIE Dumont 11/28/20 21:21 HPI - Extremity Problem General: Chief complaint: Extremity Problem,Nontraumatic Stated complaint: R ARM/HAND SWELLING AND PAIN Time Seen by Provider: 11/28/20 18:09 Source: patient Mode of arrival: ambulatory Limitations: no limitations History of Present Illness: HPI Narrative: Patient is a 65-year-old male who presents to ED today for evaluation of right upper extremity pain and swelling that he initially began noticing last night. He states since onset pain and swelling has progressively worsened. He has noticed most of the swelling throughout his hand but is having severe pain all the way up to my elbow . He tells me it feels like something is fractured in there but denies any history of trauma/falls. Patient has a history of gout but has never had a gouty flare to his upper extremities. He has not noticed any color changes to the extremity. He does not complain of numbness or tingling or loss of sensation. MD Complaint: extremity pain and extremity swelling Onset (ago): day(s) (yesterday evening ) Pain Consistency: constant Location: right and upper extremity Radiation: proximal Relieving factors: nothing Exacerbating factors: range of motion and palpation Associated symptoms: Reports no associated symptoms; Deny chest pain, fever(s) or rash Review of Systems Const: Denies: fever(s), chills, body aches, fatigue or malaise Eyes: Denies: change in vision Card: Denies: chest pain, palpitations or lightheadedness Resp: Denies: dyspnea Musc: Reports: extremity pain and extremity swelling; Denies: neck pain, back pain or joint redness Skin/Breast: Denies: rash or new lesions Neuro: Denies: numbness in extremities or sensory changes [facility] PFSH: Medical History Abnormal ultrasound of kidney Acute kidney injury superimposed on chronic kidney disease BPH NOS w ur obs/LUTS Cardiomyopathy Chronic kidney disease CKD (chronic kidney disease) stage 4, GFR 15-29 ml/min Combined systolic and diastolic cardiac dysfunction Elevated PSA History of pulmonary embolism Hyperlipidemia Hypersomnolence Hypertension Hypertensive urgency Insomnia Ischemic cardiomyopathy Left shoulder pain Mild aortic regurgitation Mild aortic stenosis 12/07/2018: Mean gradient 4.6 mmHg, aortic valve area 2.2 cm? Moderate pulmonary arterial systolic hypertension Moderate to severe pulmonary hypertension 12/07/2018: 70 mmHg Presence of stent in LAD coronary artery Sebaceous cyst Shortness of Breath Smoking Tinea pedis of right foot Surgical History H/O abdominal surgery hernia History of ankle surgery History of back surgery Family History Family/Other Cancer Mother Dementia Diabetes Sister Diabetes CAD (coronary artery disease) Father , AT AGE 78 Brain aneurysm Denies family history of Clotting disorder Hyperlipidemia Psychiatric illness Chronic kidney disease (CKD) Suicide Anesthesia complication Bleeding disorder Family history of premature coronary artery disease Lung disease Hypertension Stroke Social History Smoking and tobacco status: light tobacco smoker cigarettes Years cigarettes smoked: 20 Quit status (tobacco): considering quitting Alcohol intake: current Alcohol intake frequency: few times a month Marital status: Current occupational status: disabled History of recent travel: No Physical Exam Const: COMMON NORMALS: average body habitus, patient oriented x3, no limitations, healthy appearing, alert and well nourished GENERAL APPEARANCE: cooperative and in distress (appears uncomfortable) ORIENTATION/CONSCIOUSNESS: Yes awake, Yes oriented to person, Yes oriented to place and Yes oriented to time HENMT: COMMON NORMALS: normocephalic and atraumatic HEAD & SCALP: normal to inspection, normocephalic and atraumatic Resp: COMMON NORMALS: normal respiratory effort and clear to auscultation bilaterally AUSCULTATION: clear to auscultation bilaterally Cardio: COMMON NORMALS: regular rate and regular rhythm RATE: regular rate RHYTHM: regular rhythm Extremity: GENERAL: Yes normal exam except as noted OTHER: pt has significant swelling throughout R hand; there are no skin lesions/abrasions present; pt is with very dark colored skin but I do not appreciate any changes that would suggest cellulitis or anything that appears as lymphangitic streaking; he complains of severe pain all the way up to his elbow and is hesitant about any form of ROM of elbow, wrist, or digits-I do not appreciate any swelling to elbow or forearm/forearm is soft without any concerns for a compartment syndrome; radial pulse is felt; cap refill appears normal but distal fingertips feel slightly cooler than L Neuro: COMMON NORMALS: patient oriented x3 and no sensory deficits noted SENSORIUM/ORIENTATION: Yes alert, Yes oriented to person, Yes oriented to place and Yes oriented to time Course Vital Signs: Vital signs: Vital Signs Temperature 98.6 F 11/28/20 21:19 Pulse Rate 96 11/28/20 21:19 Respiratory Rate 16 11/28/20 21:19 Blood Pressure 148/93 11/28/20 21:19 Pulse Oximetry 97 11/28/20 20:35 MDM - Extremity (Nontraumatic) MDM Narrative: Medical decision making narrative: Patient here with significant pain and swelling to his right hand/wrist without injury or trauma. There is no evidence for infectious process clinically. He has a normal white count. Inflammatory marker/CRP mildly elevated at 15.2. XR is negative. Ultrasound venous and arterial are negative for occlusion/DVT. Dr. Montes also evaluated patient and feels his symptoms are most likely secondary to an inflammatory tenosynovitis of the wrist. He was given IV dexamethasone will be sent home with steroids as well as instructions for ice/elevation. We will have him follow-up with primary care and have case management work on getting him an orthopedic follow-up appointment. Strict return to ED precautions given. Lab Data: Labs: Lab Results 11/28/20 11/28/20 Range/Units 18:18 18:18 WBC 9.6 (4.0-10.0) 10^3/ uL RBC 3.97 L (4.1-5.3) 10^6/u L Hgb 11.7 (11.7-16.6) g/dL Hct 36.5 L (42.0-52.0) % MCV 91.9 (80-94) fl MCH 29.5 (28.0-34.0) pg MCHC 32.1 (30.0-36.0) g/dL RDW 15.8 H (12.1-15.1) % Plt Count 276 (130-400) 10^3/c mm MPV 10.6 H (7.4-10.4) fL Neut % (Auto) 72.4 % Lymph % (Auto) 13.6 % [place] % (Auto) 12.3 % Eos % (Auto) 0.2 % Baso % (Auto) 0.1 % Neut # (Auto) 6.96 (1.8-7.7) 10^3/u L Lymph # (Auto) 1.3 (0.8-4.8) 10^3/u L [place] # (Auto) 1.2 H (0.2-0.9) 10^3/u L Eos # (Auto) 0.0 (0.0-0.8) 10^3/u L Baso # (Auto) 0.0 (0.0-0.1) 10^3/u L Nucleated RBC % (a uto) 0 % Nucleated RBCs # 0.0 /100WBC Sodium 133 L (136-145) mmol/L Potassium 5.1 (3.5-5.1) mmol/L Chloride 100 (98-107) mmol/L Carbon Dioxide 20 L (22-29) mmol/L Anion Gap 18.1 (5-19) BUN 38 H (8-23) mg/dL Creatinine 3.1 H (0.7-1.2) mg/dL GFR Calculation 24.6 L (90-130) mL/min Glucose 105 (65-115) mg/dL Calculated Osmolal ity 285 (285-295) mOsm/k g Calcium 7.8 L (8.5-10.5) mg/dL C-Reactive Protein 15.2 H (0.0-4.9) mg/L Imaging Data^: US venous/arterial: Radiologist's impression: [address] [id number] ReportSigned Patient: Fredy Hammonds #: [id number]: 1955cct#:[id number]/Sex: 65 / MADM Date: 11/28/20Loc: ERRoom/Bed:Attending Dr: Ordering Provider/Ordering MD: Monse Mohamud Date of Service: 11/28/20 Procedure(s): [place] [address] Accession Number(s): [id number] Report Number: [id number] PROCEDURE INFORMATION: Exam: US Duplex Right Upper Extremity Arteries Exam date and time: 11/28/2020 6:10 PM Age: 65 years old Clinical indication: Pain; Arm, upper and arm, lower; Right; Patient HX: PT denies any trauma or needle sticks or ivs; Additional info: Pain/swelling TECHNIQUE: Imaging protocol: Right Real-time ultrasound scan of the arteries of the right upper extremity with 2-D pedraza scale, color Doppler flow and spectral waveform analysis. COMPARISON: CR ([facility], ) 11/28/2020 6:29 PM FINDINGS: The right carotid artery appears normal. The right subclavian artery the appears normal. The axillary artery appears normal. The brachial artery appears normal. The radial and ulnar arteries appear normal. Normal triphasic waveforms are identified. IMPRESSION: Normal right upper extremity arteries. PROCEDURE INFORMATION: Exam: US Duplex Right Upper Extremity Veins, Limited Exam date and time: 11/28/2020 6:10 PM Age: 65 years old Clinical indication: Pain; Arm, upper and arm, lower; Right; Patient HX: PT denies any trauma or needle sticks or ivs; Additional info: Pain/swelling TECHNIQUE: Imaging protocol: Real-time Duplex ultrasound of the Right Upper Extremity with 2-D pedraza scale, color Doppler flow and spectral waveform analysis with image documentation. Limited exam focused on the right upper extremity veins. COMPARISON: CR ([facility], ) 11/28/2020 6:29 PM FINDINGS: The there is normal blood flow within the internal jugular vein. There is normal flow and compressibility of the subclavian vein. There is normal flow and compressibility of the axillary vein. There is normal flow and compressibility of the brachial vein. There is normal flow within the cephalic and basilic veins. There is normal flow within the radial and ulnar [place]. US/[place] [id number] IMPRESSION: No evidence for deep venous thrombosis within the right upper extremity. Dictated By:Artem Holder MDSigned By:Artem Holder MDSigned Date/Time:11/28/203DD/ 50 XR R hand: Radiologist's impression: [address] [address] XRay Report Signed Patient: Fredy Hammonds Unit #: [id number] : 1955 Age/Sex: 65 / M ADM Date: 11/28/20 Loc: ER Room/Bed: Attending Dr: Ordering Provider/Ordering MD: Monse Mohamud Date of Service: 11/28/20 Procedure(s): XR hand RT min 3V* [id number] Accession Number(s): [id number] Report Number: [id number] PROCEDURE INFORMATION: Exam: XR Right Hand Exam date and time: 11/28/2020 6:10 PM Age: 65 years old Clinical indication: Pain; Hand; Right; Additional info: Swelling/pain TECHNIQUE: Imaging protocol: XR Right hand. Views: 3 or more views. COMPARISON: No relevant prior studies available. FINDINGS: No fractures are identified. The fingers are flexed making it difficult to evaluate the interphalangeal joints. There do appear to be degenerative changes involving the 4th DIP joint. There is spurring and sclerosis at the 1st MCP joint. There is some narrowing of the MCP joints. There is normal alignment of the carpal bones. There is no evidence for acute fracture. There is no foreign body. Vascular calcifications are noted. XR/XR hand RT min 3V* [id number] IMPRESSION: 1. Degenerative changes as described. 2. No evidence for fracture or acute bony destruction. Dictated By: Artem Holder MD Signed By: Artem Holder MD Signed Date/Time: 11/28/201911 DD/ 09 Discharge Plan Discharge Patient Disposition: Home Clinical Impression: Tenosynovitis of right wrist Condition: Stable Prescriptions: New prednisone 10 mg tablet 60 mg PO DAILY 5 Days Qty: 30 RF: 0 hydrocodone-acetaminophen 5-325 mg tablet 1 tab PO Q4H PRN (Reason: pain) Qty: 14 RF: 0 Discontinued hydrocodone-acetaminophen 5-325 mg tablet 1 - 2 tab PO .Q4-6H 7 Days Qty: 40 RF: 0 tramadol 50 mg tablet 50 mg PO Q12H PRN (Reason: pain) 30 Days Qty: 45 RF: 0 oxycodone-acetaminophen [Percocet] 7.5-325 mg tablet 1 tab PO Q6H PRN (Reason: pain) Qty: 7 RF: 0 No Action clotrimazole-betamethasone 1-0.05 % cream 1 applic topical BID Qty: 45 RF: 1 amitriptyline 25 mg tablet 25 mg PO DAILY Qty: 30 RF: 0 albuterol sulfate 90 mcg/actuation HFA aerosol inhaler 2 inh INHALATION Q4H PRN (Reason: shortness of breath or wheezing) Qty: 8.5 RF: 0 carvedilol 25 mg tablet 25 mg PO BID Qty: 60 RF: 3 Nitrostat 0.4 mg tablet, sublingual 0.4 mg SUBLINGUAL Q5M PRN (Reason: Chest Pain) Qty: 25 RF: 0 clopidogrel 75 mg tablet 75 mg PO DAILY Qty: 90 RF: 4 amlodipine 10 mg tablet 10 mg PO DAILY Qty: 90 RF: 3 isosorbide mononitrate 30 mg tablet extended release 24 hr 30 mg PO DAILY Qty: 90 RF: 2 furosemide 40 mg tablet 40 mg PO DAILY PRN (Reason: Edema) Qty: 90 RF: 1 (DME) Cane See Rx Instructions .Route .MEDSUPPLY Qty: 1 RF: 0 (DME) Lumbar corset See Rx Instructions .Route .MEDSUPPLY Qty: 1 RF: 0 fluticasone propion-salmeterol [Wixela Inhub] 250-50 mcg/dose Blister With Device 2 inh INHALATION BID PRN (Reason: UNKNOWN) RF: 0 tamsulosin 0.4 mg capsule 0.4 mg PO DAILY RF: 0 hydralazine 25 mg tablet 50 mg PO TID Qty: 180 RF: 0 Discharge Orders: Discharge ED (Routine); Ordered 11/28/20 Ordered By: Monse Mohamud Referrals: Jane Vega MD [Primary Care Provider] - Patient Instructions: Tenosynovitis (ED), Opioid Safety Activity Restrictions/Additional Instructions: [facility] is committed to fighting the nationwide opiate epidemic. We are providing ALL patients with information regarding opiate safety. If you received opiate pain medication during your stay or if you received a prescription for opiate pain medication-please review this handout. If not, you may disregard. Thank you. As we discussed you need to elevate the extremity as much as possible and apply ice for 15-20 minutes every other hour. Take your steroids as prescribed. Pain medication you may use for severe pain only. You need to follow-up with primary care as soon as possible in case management is working on getting you an appointment with orthopedics. You need to return to the emergency department for severe or uncontrollable pain, severe pain/tightness to your forearm, fevers, or any other concerns you may have. Coding Level of Care Code ED Battery As[employer]er [employer] for Chg 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 Documented by User: Roc Montes DO 11/29/20 02:44 HPI - Extremity Problem General: Chief complaint: Extremity Problem,Nontraumatic Stated complaint: R ARM/HAND SWELLING AND PAIN Time Seen by Provider: 11/28/20 18:09 [facility] PFSH: Medical History Abnormal ultrasound of kidney Acute kidney injury superimposed on chronic kidney disease BPH NOS w ur obs/LUTS Cardiomyopathy Chronic kidney disease CKD (chronic kidney disease) stage 4, GFR 15-29 ml/min Combined systolic and diastolic cardiac dysfunction Elevated PSA History of pulmonary embolism Hyperlipidemia Hypersomnolence Hypertension Hypertensive urgency Insomnia Ischemic cardiomyopathy Left shoulder pain Mild aortic regurgitation Mild aortic stenosis 12/07/2018: Mean gradient 4.6 mmHg, aortic valve area 2.2 cm? Moderate pulmonary arterial systolic hypertension Moderate to severe pulmonary hypertension 12/07/2018: 70 mmHg Presence of stent in LAD coronary artery Sebaceous cyst Shortness of Breath Smoking Tinea pedis of right foot Surgical History H/O abdominal surgery hernia History of ankle surgery History of back surgery Family History Family/Other Cancer Mother Dementia Diabetes Sister Diabetes CAD (coronary artery disease) Father , AT AGE 78 Brain aneurysm Denies family history of Clotting disorder Hyperlipidemia Psychiatric illness Chronic kidney disease (CKD) Suicide Anesthesia complication Bleeding disorder Family history of premature coronary artery disease Lung disease Hypertension Stroke Social History (Reviewed 07/22/21 @ 14:00 by ASIA Gore Smoking and tobacco status: light tobacco smoker cigarettes Years cigarettes smoked: 20 Quit status (tobacco): considering quitting Alcohol intake: current Alcohol intake frequency: few times a month Marital status: Current occupational status: disabled History of recent travel: No Course Vital Signs: Vital signs: Vital Signs Temperature 98.6 F 11/28/20 21:19 Pulse Rate 96 11/28/20 21:19 Respiratory Rate 16 11/28/20 21:19 Blood Pressure 148/93 11/28/20 21:19 Pulse Oximetry 97 11/28/20 20:35 MDM - Extremity (Nontraumatic) MDM Narrative: Medical decision making narrative: 65-year-old male originally seen by Mrs. MohamudENIO Obregon. I agree with her history, evaluation, work-up, and treatment. I have evaluated this patient as well. This patient's forearm is not tight, and he does not exhibit signs of compartment syndrome of the forearm. His wrist is quite tender as is his hand. He, however, does not appear infected, and has no source. Remaining explanation would be a inflammatory tenosynovitis. He will be treated as such. Lab Data: Labs: Lab Results 11/28/20 11/28/20 Range/Units 18:18 18:18 WBC 9.6 (4.0-10.0) 10^3/ uL RBC 3.97 L (4.1-5.3) 10^6/u L Hgb 11.7 (11.7-16.6) g/dL Hct 36.5 L (42.0-52.0) % MCV 91.9 (80-94) fl MCH 29.5 (28.0-34.0) pg MCHC 32.1 (30.0-36.0) g/dL RDW 15.8 H (12.1-15.1) % Plt Count 276 (130-400) 10^3/c mm MPV 10.6 H (7.4-10.4) fL Neut % (Auto) 72.4 % Lymph % (Auto) 13.6 % [place] % (Auto) 12.3 % Eos % (Auto) 0.2 % Baso % (Auto) 0.1 % Neut # (Auto) 6.96 (1.8-7.7) 10^3/u L Lymph # (Auto) 1.3 (0.8-4.8) 10^3/u L [place] # (Auto) 1.2 H (0.2-0.9) 10^3/u L Eos # (Auto) 0.0 (0.0-0.8) 10^3/u L Baso # (Auto) 0.0 (0.0-0.1) 10^3/u L Nucleated RBC % (a uto) 0 % Nucleated RBCs # 0.0 /100WBC Sodium 133 L (136-145) mmol/L Potassium 5.1 (3.5-5.1) mmol/L Chloride 100 (98-107) mmol/L Carbon Dioxide 20 L (22-29) mmol/L Anion Gap 18.1 (5-19) BUN 38 H (8-23) mg/dL Creatinine 3.1 H (0.7-1.2) mg/dL GFR Calculation 24.6 L (90-130) mL/min Glucose 105 (65-115) mg/dL Calculated Osmolal ity 285 (285-295) mOsm/k g Calcium 7.8 L (8.5-10.5) mg/dL C-Reactive Protein 15.2 H (0.0-4.9) mg/L Discharge Plan Discharge Patient Disposition: Home Clinical Impression: Tenosynovitis of right wrist Condition: Stable Prescriptions: New prednisone 10 mg tablet 60 mg PO DAILY 5 Days Qty: 30 RF: 0 hydrocodone-acetaminophen 5-325 mg tablet 1 tab PO Q4H PRN (Reason: pain) Qty: 14 RF: 0 Discontinued hydrocodone-acetaminophen 5-325 mg tablet 1 - 2 tab PO .Q4-6H 7 Days Qty: 40 RF: 0 tramadol 50 mg tablet 50 mg PO Q12H PRN (Reason: pain) 30 Days Qty: 45 RF: 0 oxycodone-acetaminophen [Percocet] 7.5-325 mg tablet 1 tab PO Q6H PRN (Reason: pain) Qty: 7 RF: 0 No Action clotrimazole-betamethasone 1-0.05 % cream 1 applic topical BID Qty: 45 RF: 1 amitriptyline 25 mg tablet 25 mg PO DAILY Qty: 30 RF: 0 albuterol sulfate 90 mcg/actuation HFA aerosol inhaler 2 inh INHALATION Q4H PRN (Reason: shortness of breath or wheezing) Qty: 8.5 RF: 0 carvedilol 25 mg tablet 25 mg PO BID Qty: 60 RF: 3 Nitrostat 0.4 mg tablet, sublingual 0.4 mg SUBLINGUAL Q5M PRN (Reason: Chest Pain) Qty: 25 RF: 0 clopidogrel 75 mg tablet 75 mg PO DAILY Qty: 90 RF: 4 amlodipine 10 mg tablet 10 mg PO DAILY Qty: 90 RF: 3 isosorbide mononitrate 30 mg tablet extended release 24 hr 30 mg PO DAILY Qty: 90 RF: 2 furosemide 40 mg tablet 40 mg PO DAILY PRN (Reason: Edema) Qty: 90 RF: 1 (DME) Cane See Rx Instructions .Route .MEDSUPPLY Qty: 1 RF: 0 (DME) Lumbar corset See Rx Instructions .Route .MEDSUPPLY Qty: 1 RF: 0 fluticasone propion-salmeterol [Wixela Inhub] 250-50 mcg/dose Blister With Device 2 inh INHALATION BID PRN (Reason: UNKNOWN) RF: 0 tamsulosin 0.4 mg capsule 0.4 mg PO DAILY RF: 0 hydralazine 25 mg tablet 50 mg PO TID Qty: 180 RF: 0 Discharge Orders: Discharge ED (Routine); Ordered 11/28/20 Ordered By: Monse Mohamud Referrals: Jane Vega MD [Primary Care Provider] - Patient Instructions: Tenosynovitis (ED), Opioid Safety Activity Restrictions/Additional Instructions: [facility] is committed to fighting the nationwide opiate epidemic. We are providing ALL patients with information regarding opiate safety. If you received opiate pain medication during your stay or if you received a prescription for opiate pain medication-please review this handout. If not, you may disregard. Thank you. As we discussed you need to elevate the extremity as much as possible and apply ice for 15-20 minutes every other hour. Take your steroids as prescribed. Pain medication you may use for severe pain only. You need to follow-up with primary care as soon as possible in case management is working on getting you an appointment with orthopedics. You need to return to the emergency department for severe or uncontrollable pain, severe pain/tightness to your forearm, fevers, or any other concerns you may have. Coding Level of Care Code ED Battery As[employer]er [employer] for Chg 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
[2020-11-28 18:25] LABS: Basophils % 0.1 %; Eosinophils % 0.2 %; Hematocrit 36.5 % (42.0-52.0); Hemoglobin 11.7 g/dL (11.7-16.6); Lymphocytes # 1.3 10^3/uL (0.8-4.8); Lymphocytes % 13.6 %; Mean Corpuscular HGB Conc 32.1 g/dL (30.0-36.0); Mean Corpuscular Hemoglobin 29.5 pg (28.0-34.0); Mean Corpuscular Volume 91.9 fl (80-94); Mean Platelet Volume 10.6 fL (7.4-10.4); Monocytes # 1.2 10^3/uL (0.2-0.9); Monocytes % 12.3 %; Neutrophils # 6.96 10^3/uL (1.8-7.7); Neutrophils % 72.4 %; Nucleated Red Blood Cells % 0 %; Platelet Count 276 10^3/cmm (130-400); Red Blood Count 3.97 10^6/uL (4.1-5.3); Red Cell Distribution Width 15.8 % (12.1-15.1); White Blood Count 9.6 10^3/uL (4.0-10.0)
[2020-11-28 18:27] VITALS: BP 136/94; PULSE 103; RESP 18; TEMP 36.6; O2SAT 100
[2020-11-28 18:44] LABS: Blood Urea Nitrogen 38 mg/dL (8-23); C Reactive Protein 15.2 mg/L (0.0-4.9); Calcium 7.8 mg/dL (8.5-10.5); Carbon Dioxide 20 mmol/L (22-29); Chloride 100 mmol/L (98-107); Creatinine Clr Calc Pharmacy 24.7644; Glomerular Filtration Rate 24.6 mL/min (90-130); Glucose 105 mg/dL (65-115); Osmolality Calculated 285 mOsm/kg (285-295); Sodium 133 mmol/L (136-145)
[2020-11-28 19:09] LABS: Anion Gap 18.1 (5-19); Potassium 5.1 mmol/L (3.5-5.1)
[2020-11-28 20:35] VITALS: RESP 18; O2SAT 97
[2020-11-28] MEDS: morphine 4 mg/mL SDV 1 mL IVP (20:35)
[2020-11-28] MEDS: dexamethasone 10 mg/mL INJ IVP (20:36)
[2020-11-28 21:19] VITALS: BP 148/93; PULSE 96; RESP 16; TEMP 37
== END 2020-11-28 21:23 | disposition home or self-care (01) ==
PROVIDERS: Emergency Medicine; Emergency Provider Physician Assistant; PCP Family Medicine
DX: M65.841 Other synovitis and tenosynovitis, right hand (principal); I13.0 Hypertensive heart and chronic kidney disease with heart failure and stage 1 through stage 4 chronic kidney disease, or unspecified chronic kidney disease; N18.4 Chronic kidney disease, stage 4 (severe); I50.40 Unspecified combined systolic (congestive) and diastolic (congestive) heart failure; E78.5 Hyperlipidemia, unspecified; I25.5 Ischemic cardiomyopathy; F17.210 Nicotine dependence, cigarettes, uncomplicated
CPT/HCPCS: 73130; 80048; 85025; 86140; 93931; 93971; 96374; 96375; 99284; J1100; J2270

== ENCOUNTER → 2020-12-04 14:52 | Outpatient (BNVA) | payer MEDICARE, SELFPAY | PROVIDERS: PCP Family Medicine; Visit Provider Orthopaedic Surgery | DX: Z48.89 Encounter for other specified surgical aftercare (principal); M48.062 Spinal stenosis, lumbar region with neurogenic claudication | CPT/HCPCS: 72100 ==

== ENCOUNTER → 2021-01-23 09:15 | Outpatient (BNVA) | payer MEDICARE, SELFPAY | PROVIDERS: PCP Family Medicine Adult Medicine; Visit Provider Orthopaedic Surgery | DX: Z48.89 Encounter for other specified surgical aftercare (principal); M48.062 Spinal stenosis, lumbar region with neurogenic claudication; Z01.812 Encounter for preprocedural laboratory examination; Z20.822 Contact with and (suspected) exposure to COVID-19 | CPT/HCPCS: 87635 ==

== ENCOUNTER → 2021-01-26 15:02 | Outpatient (BNVA) | payer MEDICARE, SELFPAY | PROVIDERS: PCP Family Medicine Adult Medicine; Visit Provider Family Medicine Adult Medicine | DX: D63.1 Anemia in chronic kidney disease (principal); N18.4 Chronic kidney disease, stage 4 (severe); N18.9 Chronic kidney disease, unspecified; I10 Essential (primary) hypertension; G47.00 Insomnia, unspecified | CPT/HCPCS: 80053; 85025 ==

== ENCOUNTER 2021-01-29 06:37 | Day surgery (SDC) | payer MEDICARE, SELFPAY ==
[2021-01-29] VITALS (11 sets, daily range): BP systolic 110–130; BP diastolic 73–94; PULSE 54–96; RESP 10–19; TEMP 35.9–36.6; O2SAT 95–100; BMI 26.1
[2021-01-29] MEDS: acetaminophen 500 mg Tablet 1000 MG PO (07:30)
[2021-01-29] MEDS: sodium chloride 0.9% 1,000 ML 30 ML IV (07:30)
--- NOTE | 2021-01-29 08:35 | ANES.PREANE2 ---
Pre-Anesthetic Assessment Pre-Anesthetic Assessment: Height/Weight: Height 1.73 m Weight 78.018 kg Temp Pulse Resp BP Pulse Ox 97.9 F 96 18 130/94 99 01/29/21 06:47 01/29/21 06:47 01/29/21 06:47 01/29/21 06:47 01/29/21 06:47 Preop Diagnosis: Rotator cuff tear Left shoulder Proposed Procedure: Operation Date: 01/29/21 08:40 Proposed Procedures p Shoulder Arthroscopy 51657 M75.102(Left) - Giovani Zavala MD s Rotator Cuff Repair(Left) - Giovani Zavala MD Was Beta Aggie taken within 24 hours: Yes Was Clonidine taken within 24 hours: N/A Last intake: Intake Last Liquid Date 01/28/21 Last Liquid Time 22:00 Last Solid Date 01/28/21 Last Solid Time 22:00 Social: Social History: Tobacco and No alcohol Exam: Pre-Anes Outpt Exam: alert, oriented x 3 and regular rate & rhythm Airway: Submandibular: WNL Cervical ROM: WNL MP: 2 Dentition: False (Upper edentulous) Additional comments: Poor dentition Pulmonary: Pulmonary: COPD CV/HEM: CV/HEM: Anemia, Angina (Stable), CAD, CHF (EF 50%), HTN and Murmur (Mod AR/MR, mild ) : : Chronic renal Insufficiency Metabolic: Metabolic: Hyperlipidemia Neuropsych: Neuropsych: Anxiety Anesthetic Plan: ASA status: 3 Anesthesia: General and Regional (specify below) (Left interscalene nerve blk) Risk of > 500 ml blood loss (7ml/kg in children): No PFSH Anesthesia PFSH: Medical History (Updated 01/26/21 @ 15:44 by Kian Colon MD) Abnormal ultrasound of kidney Acute kidney injury superimposed on chronic kidney disease Anemia in chronic kidney disease (CKD) BPH NOS w ur obs/LUTS Cardiomyopathy Chronic kidney disease CKD (chronic kidney disease) stage 4, GFR 15-29 ml/min Combined systolic and diastolic cardiac dysfunction Elevated PSA History of pulmonary embolism Hyperlipidemia Hypersomnolence Hypertension Hypertensive urgency Insomnia Ischemic cardiomyopathy Left shoulder pain Mild aortic regurgitation Mild aortic stenosis 12/07/2018: Mean gradient 4.6 mmHg, aortic valve area 2.2 cm? Moderate pulmonary arterial systolic hypertension Moderate to severe pulmonary hypertension 12/07/2018: 70 mmHg Presence of stent in LAD coronary artery Shortness of Breath Smoking Tinea pedis of right foot Surgical History H/O abdominal surgery hernia History of ankle surgery History of back surgery Family History Family/Other Cancer Mother Dementia Diabetes Sister Diabetes CAD (coronary artery disease) Father , AT AGE 78 Brain aneurysm Denies family history of Clotting disorder Hyperlipidemia Psychiatric illness Chronic kidney disease (CKD) Suicide Anesthesia complication Bleeding disorder Family history of premature coronary artery disease Lung disease Hypertension Stroke Social History Quit status (tobacco): considering quitting Alcohol intake: current Alcohol intake frequency: few times a month Marital status: Current occupational status: disabled History of recent travel: No Data Anesthesia Cardiac Studies: No Data to Display
--- NOTE | 2021-01-29 08:37 | ANES.PROC ---
Anesthesia Procedures Procedure/Date: 01/29/21 Nerve Block ^: Nerve Block 1: Main Anesthesia: general anesthesia Time Out Performed: Yes Consent: requested by attending/covering physician, from patient, risks and benefits reviewed and patient agrees to proceed Nerve block location: interscalene (left) Anesthesia monitors applied: pulse oximetry Nerve block position: semi sitting Anesthetic Used: ropivicaine 0.5% Amount of anesthesia used (mL): 30 Ultrasound used to: recognize landmarks and visualize and ID brachial plexus Nerve Stimulator Used?: No Interscalene/Femoral BLK: 2 stimuplex 22 g needle used for position and inplane approach and visualize local anesthetic spread Injection: neg aspiration of heme Patient Tolerated Procedure: well Complications: none
--- NOTE | 2021-01-29 09:00 | P.HP_ITS ---
Same Day Surgery H&P Indication for Procedure/HPI DATE OF PROCEDURE: January 29, 2021 CHIEF COMPLAINT/INDICATIONFOR SURGICAL PROCEDURE: Chronic left shoulder pain. MRI with tear left rotator cuff PREOP DIAGNOSIS: Rotator cuff tear Left shoulder PLANNED PROCEDRUE: Operation Date: 01/29/21 08:40 Proposed Procedures p Shoulder Arthroscopy 27523 M75.102(Left) - Giovani Zavala MD s Rotator Cuff Repair(Left) - Giovani Zavala MD 65-year-old male with chronic left shoulder he is a patient of [facility] and is undergone treatment of his cervical spine. He is now electing to proceed with left rotator cuff repair Medications/Allergies* Home Medications Medication Instructions Recorded Confirmed Type cefdinir 300 mg capsule 300 mg PO DAILY cap 01/20/21 01/29/21 History tramadol 50 mg tablet 50 mg PO DAILY 01/20/21 01/26/21 History clopidogrel [Plavix] 75 mg PO DAILY 01/29/21 01/29/21 History Allergies/Adverse Reactions Allergy/AdvReac Type Severity Reaction Status Date / Time No Known Allergies Allergy Verified 01/26/21 14:02 Pertinent History/Comorbid Conditions* Medical History (Updated 01/26/21 @ 15:44 by Kian Colon MD) Abnormal ultrasound of kidney Acute kidney injury superimposed on chronic kidney disease Anemia in chronic kidney disease (CKD) BPH NOS w ur obs/LUTS Cardiomyopathy Chronic kidney disease CKD (chronic kidney disease) stage 4, GFR 15-29 ml/min Combined systolic and diastolic cardiac dysfunction Elevated PSA History of pulmonary embolism Hyperlipidemia Hypersomnolence Hypertension Hypertensive urgency Insomnia Ischemic cardiomyopathy Left shoulder pain Mild aortic regurgitation Mild aortic stenosis 12/07/2018: Mean gradient 4.6 mmHg, aortic valve area 2.2 cm? Moderate pulmonary arterial systolic hypertension Moderate to severe pulmonary hypertension 12/07/2018: 70 mmHg Presence of stent in LAD coronary artery Shortness of Breath Smoking Tinea pedis of right foot Surgical History (Updated 09/24/20 @ 10:50 by Kian Colon MD) H/O abdominal surgery hernia History of ankle surgery History of back surgery Family History (Updated 06/17/20 @ 19:46 by Andrews Amaya MD) Father, AT AGE 78 Diabetes Mother Sister CAD (coronary artery disease) Sister Brain aneurysm Father Dementia Mother Cancer Family/Other Denies family history of Clotting disorder Hyperlipidemia Psychiatric illness Chronic kidney disease (CKD) Suicide Anesthesia complication Bleeding disorder Family history of premature coronary artery disease Lung disease Hypertension Stroke Social History Quit status (tobacco): considering quitting Alcohol intake: current Alcohol intake frequency: few times a month Marital status: Current occupational status: disabled History of recent travel: No Pertinent Exam Findings alert, oriented x 3, clear to auscultation bilaterally, regular rate & rhythm and operative site marked Recommendations Surgery/Procedure today Other Plans: Proceed with diagnostic arthroscopy proceed with diagnostic arthroscopy left rotator cuff repair other indicated procedures today. Coding Level of Care Code Acute Can Carrier for Ramana Pillai
[2021-01-29] MEDS: EPINEPHrine 1 mg/mL INJ 2 MG XX (09:57)
--- NOTE | 2021-01-29 11:31 | PM.OP ---
Operative Report Date of procedure: January 29, 2021 Pre-op Diagnosis: Rotator cuff tear Left shoulder Post-op diagnosis: same Post-op Diagnosis: Left rotator cuff tear, left shoulder impingement, partial tear left biceps tendon Post-op Findings: As above Procedure Done: Arthroscopic left rotator cuff repair open left biceps tenodesis Implants: E[employer] Nephew Helicoil 4.5 mm anchor x2, E[employer]hew Helicoil knotless x1, Q fix 1.8 mm x 1 Pathology: none sent Surgeon: Giovani Zavala Anesthesia: General and Nerve Block (Interscalene block) Estimated blood loss (mL): 10 Complications: None Findings: The patient had a U-shaped tear of the rotator cuff approximately a centimeter half from anterior to posterior with a centimeter half of retraction. The anterior and posterior portions of the tear could be converge then brought to the greater tuberosity. Tendon when bone quality was reasonable. He had spurring of his anterior acromion. He had marked degenerative changes with fraying and longitudinal splitting in his biceps tendon inserting on the superior labrum Condition: stable Disposition: PACU Procedure: The patient was taken to the operating room after he was the patient was taken to the operating room after interscalene block was provided. He is given 2 g of Ancef. He was positioned in the supine position and prepped and draped in the usual fashion a posterior portal was made 2 cm inferior medial to the posterior corner of the acromion. A scope cannula trocar was driven into the glenohumeral joint. 8 mm inflow cannula was placed anteriorly. The diagnostic portion of the glenohumeral arthroscopy was performed the humeral head and glenoid were free of chondromalacia but clear degenerative complex tearing was identified of the biceps tendon. A spinal needle was introduced laterally and a 1 Prolene suture shuttled around the biceps. Both ends retracted out through an anterior cannula and secured gaining control of that biceps tendon. The biceps was then released from its insertion on the superior labrum with the E[employer] Nephew Werewolf. Arthroscopy equipment was then moved to the subacromial space and the lateral portal opened up. Through that lateral portal bursal tissue was removed. The leading edge of the acromion was outlined. 5 5 acromionizer was introduced and approximately 5 mm of anterior and inferior acromion were removed. Attention was then focused on the rotator cuff. The edges were debrided back to stable tissue. With a grasper the tear configuration seem to be a U-shaped tear with very good mobility of the anterior and posterior flaps centrally. The greater tuberosity was debrided with incisor shaver. Through a lateral stab wound a 4.5 mm Erazo [employer] Nephew Helicoil anchor was placed. The Erazo [employer] Nephew FirstPass suture passer used to shuttle each limb of tape through the anterior and medial cuff approximately 5 mm apart from each other. A second anchor was placed posteriorly in the debrided tuberosity and the 2 sutures there passed in identical fashion. Through the lateral portal each sutures was secured bringing the medial cuff to the medial tuberosity. All 4 sutures were then retrieved out through the lateral cannula. A helical knotless anchor was placed laterally in all 4 sutures tension creating a bridge over the lateral cuff. Next a 3 cm long incision was made in the anterior axillary fold dissection was carried down bluntly through the deltopectoral interval to the bicipital groove. The biceps tendon was identified and retracted into the wound. This revealed an extensively degenerative proximal 4 cm of tendon. The bicipital groove was debrided. A Q fix anchor placed and this passed around the tendon in a luggage tag fashion tightened securing the biceps to the bicipital groove. A second 1 Ethibond was passed through the tendon and the soft tissues about the bicipital groove further reinforcing the repair. The shoulder was irrigated with saline. Deep tissues were closed with 2-0 Vicryl. The skin was closed with interrupted 3-0 Prolene sutures. Portals were closed with 3-0 Prolene sutures. The axillary fold was covered with Xeroflo gauze and the 4 x 4 and ABDs placed over the shoulder. The patient was placed in a sling, extubated, and taken to recovery in stable condition.
[2021-01-29] MEDS: oxyCODONE 5 mg IR Tab/Cap PO ×2 (12:37→13:36)
--- NOTE | 2021-01-29 13:00 | PC.NURSE ---
Dressing changed at bedside by Dr. Zavala.
--- NOTE | 2021-01-29 13:37 | PC.NURSE ---
Dr. Dupree called and notified that patient was still hurting and complaining of severe pain. Orders received for another dose of 5mg oxycodone PO.
--- NOTE | 2021-01-29 13:51 | ANE.PACU2 ---
Inpatient post-anesthesia follow up: Airway intact: Yes Vital signs: Temperature 96.8 F Pulse Rate 67 Respiratory Rate 16 Blood Pressure 124/73 Pulse Oximetry 97 Oxygen Delivery Me thod Room Air Oxygen Flow Rate 8 Fraction of Inspir ed Oxygen Hydration adequate: Yes Nausea and vomiting: No Pain level: 1 Mental status: Baseline
== END 2021-01-29 14:00 | disposition home or self-care (01) ==
PROVIDERS: PCP Family Medicine Adult Medicine; Visit Provider Orthopaedic Surgery
PROC: (CPT 29805; principal; 2021-01-29 08:40)
PROC: (CPT 23430; 2021-01-29 08:40)
DX: M75.102 Unspecified rotator cuff tear or rupture of left shoulder, not specified as traumatic (principal); S46.222A Laceration of muscle, fascia and tendon of other parts of biceps, left arm, initial encounter; M25.812 Other specified joint disorders, left shoulder; M25.512 Pain in left shoulder; I10 Essential (primary) hypertension; F17.200 Nicotine dependence, unspecified, uncomplicated; E78.5 Hyperlipidemia, unspecified; X58.XXXA Exposure to other specified factors, initial encounter
CPT/HCPCS: 23430; 29827; 64415; 76942; C1713; J0171; J0690; J1100; J2250; J2370; J2405; J2704; J2710; J2795; J3010; J3490; J7030; P9041

== ENCOUNTER 2021-01-30 10:15 | Emergency (ER) | payer MEDICARE, SELFPAY ==
[2021-01-30 10:20] VITALS: BP 143/98; PULSE 90; RESP 16; TEMP 36.1; O2SAT 100; BMI 26.1
--- NOTE | 2021-01-30 10:52 | ED_ITS ---
HPI - Wound/Laceration General: Chief Complaint: Wound/Laceration Stated Complaint: BLEEDING P/O SURGERY W/DR ROSS Time Seen by Provider: 01/30/21 10:28 Source: patient Mode of arrival: ambulatory Limitations: no limitations History of Present Illness: HPI narrative: Patient is a 65-year-old male who presents to ED today with a complaint of bleeding from a left shoulder surgical incision. Patient states he had a left rotator cuff repaired yesterday by Dr. Ross. Patient states laceration continued to ooze throughout the night and states this morning his dressing was completely soaked thus prompting his visit to the ED. Patient is taking oxycodone for pain. Onset (ago): hour(s) Extremity Location: Left: shoulder Patient tetanus UTD: Yes Context: other (recent surgery/surgical incision) Associated symptoms: Reports no associated symptoms; Denies chills, fever(s), nausea or vomiting Review of Systems 2 Const: Denies: fever(s), chills, body aches, fatigue or malaise Card: Denies: chest pain Resp: Denies: dyspnea GI: Denies: nausea or vomiting Musc: Reports: joint pain (L shoulder pain from recent surgery) Neuro: Denies: dizziness PFSH ED PFSH: Medical History (Updated 01/30/21 @ 12:51 by RICHIE Dumont) Abnormal ultrasound of kidney Acute kidney injury superimposed on chronic kidney disease Anemia in chronic kidney disease (CKD) BPH NOS w ur obs/LUTS Cardiomyopathy Chronic kidney disease CKD (chronic kidney disease) stage 4, GFR 15-29 ml/min Combined systolic and diastolic cardiac dysfunction Elevated PSA History of pulmonary embolism Hyperlipidemia Hypersomnolence Hypertension Hypertensive urgency Insomnia Ischemic cardiomyopathy Left shoulder pain Mild aortic regurgitation Mild aortic stenosis 12/07/2018: Mean gradient 4.6 mmHg, aortic valve area 2.2 cm? Moderate pulmonary arterial systolic hypertension Moderate to severe pulmonary hypertension 12/07/2018: 70 mmHg Presence of stent in LAD coronary artery Shortness of Breath Smoking Tinea pedis of right foot Surgical History H/O abdominal surgery hernia History of ankle surgery History of back surgery Family History Family/Other Cancer Mother Dementia Diabetes Sister Diabetes CAD (coronary artery disease) Father , AT AGE 78 Brain aneurysm Denies family history of Clotting disorder Hyperlipidemia Psychiatric illness Chronic kidney disease (CKD) Suicide Anesthesia complication Bleeding disorder Family history of premature coronary artery disease Lung disease Hypertension Stroke Social History Quit status (tobacco): considering quitting Alcohol intake: current Alcohol intake frequency: few times a month Marital status: Current occupational status: disabled History of recent travel: No Physical Exam Const: COMMON NORMALS: no acute distress, average body habitus, patient oriented x3, no limitations, healthy appearing, alert and well nourished GENERAL APPEARANCE: cooperative ORIENTATION/CONSCIOUSNESS: Yes awake, Yes oriented to person, Yes oriented to place and Yes oriented to time Resp: COMMON NORMALS: normal respiratory effort Cardio: COMMON NORMALS: regular rate and regular rhythm RATE: regular rate RHYTHM: regular rhythm Extremity: OTHER: L shoulder with vertical incision to anterior axillary fold and four smaller trocar incisions to posterior aspect; incisions are intact w/o wound dehiscence; there is a small area to inferior aspect of anterior incision that is bleeding and I visualized a very tiny pulsatile source; patient does have quite a bit of soaked bandages in trash can from his bleeding yesterday evening and into today; extremity NV intact Neuro: COMMON NORMALS: patient oriented x3 SENSORIUM/ORIENTATION: Yes alert, Yes oriented to person, Yes oriented to place and Yes oriented to time Skin: NARRATIVE SKIN EXAM: see extremity assessment for pertinent skin findings Course Vital Signs: Vital signs: Vital Signs Temperature 96.9 F L 01/30/21 10:20 Pulse Rate 90 01/30/21 10:20 Respiratory Rate 16 01/30/21 10:20 Blood Pressure 143/98 01/30/21 10:20 Pulse Oximetry 100 01/30/21 10:20 MDM - Wound/Laceration MDM Narrative: Medical decision making narrative: Inferior aspect of wound infiltrated with lidocaine and one vicryl stitch was used to tie off small capillary bleed. Surgicel placed and patient was monitored for almost an hour w ith no return in bleeding. Wound will be redressed. Instructions to call ortho office for appointment early next week. Patient was given strict instructions to return to ED for any further bleeding that could not be subsided by pressure x 20 mins. Lab Data: Labs: Lab Results 01/30/21 12:00 WBC 13.4 10^3/uL H 10 ^3/uL (4.0-10.0) RBC 3.37 10^6/uL L 10 ^6/uL (4.1-5.3) Hgb 10.0 g/dL L g/dL (11.7-16.6) Hct 31.4 % L % (42.0-52.0) MCV 93.2 fl fl (80-94) MCH 29.7 pg pg (28.0-34.0) MCHC 31.8 g/dL g/dL (30.0-36.0) RDW 17.6 % H % (12.1-15.1) Plt Count 255 10^3/cmm 10^3 /cmm (130-400) MPV 10.9 fL H fL (7.4-10.4) Neut % (Auto) 80.4 % % Lymph % (Auto) 11.8 % % Boyle % (Auto) 7.1 % % Eos % (Auto) 0.1 % % Baso % (Auto) 0.2 % % Neut # (Auto) 10.79 10^3/uL H 1 0^3/uL (1.8-7.7) Lymph # (Auto) 1.6 10^3/uL 10^3/ uL (0.8-4.8) Boyle # (Auto) 1.0 10^3/uL H 10^ 3/uL (0.2-0.9) Eos # (Auto) 0.0 10^3/uL 10^3/ uL (0.0-0.8) Baso # (Auto) 0.0 10^3/uL 10^3/ uL (0.0-0.1) Nucleated RBC % (a uto) 0 % % Nucleated RBCs # 0.0 /100WBC /100W BC Discharge Plan Discharge Patient Disposition: Home Clinical Impression: Postoperative bleeding from incision Condition: Stable Prescriptions: No Action cefdinir 300 mg capsule 300 mg PO DAILY RF: 0 tramadol 50 mg tablet 50 mg PO DAILY RF: 0 furosemide 40 mg tablet 40 mg PO DAILY PRN (Reason: Edema) Qty: 90 RF: 1 hydralazine 25 mg tablet 25 mg PO TID Qty: 180 RF: 0 fluticasone propion-salmeterol [Wixela Inhub] 250-50 mcg/dose blister with device 1 inh INHALATION BID Qty: 60 RF: 3 clotrimazole-betamethasone 1-0.05 % cream 1 applic topical BID Qty: 45 RF: 1 trazodone 50 mg tablet 25 mg PO DAILY Qty: 30 RF: 3 albuterol sulfate 90 mcg/actuation HFA aerosol inhaler 2 inh INHALATION Q4H PRN (Reason: shortness of breath or wheezing) Qty: 8.5 RF: 0 carvedilol 25 mg tablet 25 mg PO BID Qty: 60 RF: 3 Nitrostat 0.4 mg tablet, sublingual 0.4 mg SUBLINGUAL Q5M PRN (Reason: Chest Pain) Qty: 25 RF: 0 amlodipine 10 mg tablet 10 mg PO DAILY Qty: 90 RF: 3 isosorbide mononitrate 30 mg tablet extended release 24 hr 30 mg PO DAILY Qty: 90 RF: 2 (DME) Cane See Rx Instructions .Route .MEDSUPPLY Qty: 1 RF: 0 (DME) Lumbar corset See Rx Instructions .Route .MEDSUPPLY Qty: 1 RF: 0 Plavix 75 mg tablet 75 mg PO DAILY RF: 0 oxycodone 5 mg capsule 5 mg PO Q4H Qty: 40 RF: 0 Discharge Orders: Discharge ED (Routine); Ordered 01/30/21 Ordered By: Monse Mohamud Referrals: Kian Colon MD [Primary Care Provider] - Activity Restrictions/Additional Instructions: As we discussed leave bandages in place unless you begin soaking through them again at which point hold firm pressure to wound for 15 to 20 minutes. If bleeding does not subside you need to return to the ED for further evaluation. As we discussed please contact the orthopedic clinic to see if they can see you next week for reevaluation. Coding Level of Care Code ED Before And After School Daycare Worker for Ramana Fwzo Exam Expanded Problem Focused
[2021-01-30] MEDS: ondansetron 2 mg/ML SDV 2 mL 4 MG IVP (12:06)
[2021-01-30] MEDS: morphine 4 mg/mL SDV 1 mL IVP (12:06)
[2021-01-30 12:08] LABS: Basophils % 0.2 %; Eosinophils % 0.1 %; Hematocrit 31.4 % (42.0-52.0); Lymphocytes # 1.6 10^3/uL (0.8-4.8); Lymphocytes % 11.8 %; Mean Corpuscular HGB Conc 31.8 g/dL (30.0-36.0); Mean Corpuscular Hemoglobin 29.7 pg (28.0-34.0); Mean Corpuscular Volume 93.2 fl (80-94); Mean Platelet Volume 10.9 fL (7.4-10.4); Monocytes % 7.1 %; Neutrophils # 10.79 10^3/uL (1.8-7.7); Neutrophils % 80.4 %; Nucleated Red Blood Cells % 0 %; Platelet Count 255 10^3/cmm (130-400); Red Blood Count 3.37 10^6/uL (4.1-5.3); Red Cell Distribution Width 17.6 % (12.1-15.1); White Blood Count 13.4 10^3/uL (4.0-10.0)
[2021-01-30 12:45] VITALS: BP 141/92; PULSE 87; RESP 16; O2SAT 97
== END 2021-01-30 13:05 | disposition home or self-care (01) ==
PROVIDERS: Emergency Provider Physician Assistant; PCP Family Medicine Adult Medicine
DX: L76.22 Postprocedural hemorrhage of skin and subcutaneous tissue following other procedure (principal); I12.9 Hypertensive chronic kidney disease with stage 1 through stage 4 chronic kidney disease, or unspecified chronic kidney disease; N18.4 Chronic kidney disease, stage 4 (severe); E78.5 Hyperlipidemia, unspecified; Z79.02 Long term (current) use of antithrombotics/antiplatelets
CPT/HCPCS: 85025; 96374; 96375; 99283; J2270; J2405

== ENCOUNTER → 2021-04-15 14:30 | Outpatient (BNVA) | payer MEDICARE, SELFPAY | PROVIDERS: PCP Family Medicine Adult Medicine; Visit Provider Family Medicine Adult Medicine | DX: N18.4 Chronic kidney disease, stage 4 (severe) (principal) | CPT/HCPCS: 80069; 82043 ==

== ENCOUNTER 2021-04-29 06:00 | Outpatient (RCR) | payer MEDICARE, SELFPAY | END 2021-05-04 23:59 | disposition home or self-care (01) | LOC: SPT 06:00 | PROVIDERS: PCP Family Medicine Adult Medicine; Referring Provider Orthopaedic Surgery; Visit Provider Orthopaedic Surgery | DX: Z47.89 Encounter for other orthopedic aftercare (principal) | CPT/HCPCS: 97161 ==

== ENCOUNTER 2021-05-05 06:00 | Outpatient (RCR) | payer MEDICARE, SELFPAY | END 2021-06-01 23:59 | disposition home or self-care (01) | LOC: SPT 06:00 | PROVIDERS: PCP Family Medicine Adult Medicine; Referring Provider Orthopaedic Surgery; Visit Provider Orthopaedic Surgery | DX: Z47.89 Encounter for other orthopedic aftercare (principal) | CPT/HCPCS: 97110 ==

== ENCOUNTER → 2021-05-14 10:17 | Outpatient (BNVA) | payer MEDICARE, SELFPAY | PROVIDERS: PCP Family Medicine Adult Medicine; Visit Provider Orthopaedic Surgery | DX: M48.062 Spinal stenosis, lumbar region with neurogenic claudication (principal) | CPT/HCPCS: 72100; 80048; 82043 ==

== ENCOUNTER 2021-06-19 15:33 | Observation (INO) | payer MEDICARE, SELFPAY ==
[2021-06-19] VITALS (12 sets, daily range): BP systolic 106–134; BP diastolic 74–90; PULSE 55–83; RESP 16–23; TEMP 36.3–37.1; O2SAT 40–100; BMI 22.9; BMI 24.0
--- NOTE | 2021-06-19 15:39 | XRR_ITS ---
PROCEDURE INFORMATION: Exam: XR Chest Exam date and time: 06/19/2021 3:13 PM Age: 66 years old Clinical indication: Shortness of breath; Additional info: Dyspnea TECHNIQUE: Imaging protocol: XR of the chest. Views: 1 view. COMPARISON: CR XR chest 1V portable [id number] 06/17/2020 3:10 PM FINDINGS: Lungs: Emphysematous changes. Pleural spaces: Right minor fissure demonstrates some apparent pleural thickening, somewhat more prominent compared to prior exam, chest CT could further evaluate this for underlying possible nodularity. Heart/Mediastinum: Cardiomegaly. Bones/joints: Unremarkable. XR/XR chest 1V portable [id number] IMPRESSION: 1. Emphysematous changes. 2. Cardiomegaly. 3. Right minor fissure demonstrates some apparent pleural thickening, somewhat more prominent compared to prior exam, chest CT could further evaluate this for underlying possible nodularity.
--- NOTE | 2021-06-19 15:45 | ED_ITS ---
HPI - General Adult General: Chief complaint: Shortness of Breath/Dyspnea Stated complaint: RESPIRATORY DISTRESS Time Seen by Provider: 06/19/21 15:39 History of Present Illness: Patient is a 66-year-old male with history of CAD with stent x3, CKD, systolic and diastolic heart failure presenting to the emergency room for evaluation of acute onset of dyspnea worsening over the last 2 weeks. Patient was seen earlier today at urgent care was noted to be in significant respiratory distress. Patient received DuoNeb and then EMS was called patient was brought to the emergency room. Patient received additional treatment by EMS. Per patient, he has had a cough and chills for last 2 weeks now and the shortness of breath has worsened over the last week. Patient takes 40 mg of Lasix daily and has not had any problems taking his medicine. Patient denies any recent weight gain, or lower extremity swelling. Patient no has no prior history of VTE. Denies any chest pain, abdominal complaints of nausea/vomiting, diarrhea, diaphoresis, melena hematochezia. Patient reports greenish sputum over the last 2 weeks and as well as generalized body aches and weakness. Onset: 2 weeks ago Duration:2 weeks Location:home Severity:moderate Associated symptoms: Reports dyspnea; Deny chest pain, nausea, rash, palpitations or vomiting Review of Systems Const: Reports: chills, body aches and other (+generalized weakness); Denies: fever(s) Eyes: Denies: change in vision ENMT: Denies: mouth pain Card: Denies: chest pain or palpitations Resp: Reports: dyspnea, productive cough and other (+wheezing); Denies: non-productive cough GI: Denies: abdominal pain, nausea, vomiting or diarrhea : Denies: dysuria Musc: Denies: extremity pain Skin/Breast: Denies: rash or new lesions Neuro: Denies: weakness in extremities Psych: Reports: other (Normal mood) [place]/Lymph: Denies: easy bruising PFSH ED PFSH: Medical History Abnormal ultrasound of kidney Acute kidney injury superimposed on chronic kidney disease Anemia in chronic kidney disease (CKD) BPH NOS w ur obs/LUTS Cardiomyopathy Chronic kidney disease CKD (chronic kidney disease) stage 4, GFR 15-29 ml/min He will follow up with me on 03/18/2021 for his CKD and diabetic counseling. He has a routine follow-up in April. He will need to get his sutures removed on 03/18/2021. Combined systolic and diastolic cardiac dysfunction Elevated PSA Erectile dysfunction History of pulmonary embolism Hyperlipidemia Hypersomnolence Hypertensive urgency Insomnia Ischemic cardiomyopathy Left shoulder pain Mild aortic regurgitation Mild aortic stenosis 12/07/2018: Mean gradient 4.6 mmHg, aortic valve area 2.2 cm? Moderate pulmonary arterial systolic hypertension Moderate to severe pulmonary hypertension 12/07/2018: 70 mmHg Presence of stent in LAD coronary artery Respiratory distress Sebaceous cyst Shortness of Breath Smoking Tear of left rotator cuff Tinea pedis of right foot Surgical History H/O abdominal surgery hernia History of ankle surgery History of back surgery Family History Family/Other Cancer Mother Dementia Diabetes Sister Diabetes CAD (coronary artery disease) Father , AT AGE 78 Brain aneurysm Denies family history of Clotting disorder Hyperlipidemia Psychiatric illness Chronic kidney disease (CKD) Suicide Anesthesia complication Bleeding disorder Family history of premature coronary artery disease Lung disease Hypertension Stroke Social History Smoking and tobacco status: current every day smoker cigarettes Years cigarettes smoked: 20 Quit status (tobacco): considering quitting Alcohol intake: current Alcohol intake frequency: few times a month Marital status: Current occupational status: disabled History of recent travel: No Physical Exam Const: COMMON NORMALS: alert HENMT: COMMON NORMALS: atraumatic HEAD & SCALP: atraumatic MOUTH: moist mucous membranes not abnormal Eye: COMMON NORMALS: EOMs intact bilaterally and conjunctivae normal CONJUNCTIVA: Yes conjunctivae normal Neck/C-Spine: COMMON NORMALS: full ROM and supple Resp: COMMON NORMALS: normal respiratory effort and clear to auscultation bilaterally AUSCULTATION: clear to auscultation bilaterally OTHER: mild expiratory wheezes, +intercoastal retraction b/l Cardio: COMMON NORMALS: regular rate RATE: regular rate GI: COMMON NORMALS: Soft to palpation and non-tender PALPATION: Yes Soft to palpation Extremity: COMMON NORMALS: full ROM OTHER: no LE edema Neuro: SENSORIUM/ORIENTATION: Yes alert MOTOR EXAM: No Abnormal motor strength present and Other motor observations present (no focal motor deficits) Psych: COMMON NORMALS: speech normal SPEECH: Yes normal speech MOOD & AFFECT: Yes euthymic mood Course Vital Signs: Vital signs: Vital Signs Temperature 97.4 F L 06/19/21 15:34 Pulse Rate 64 06/19/21 17:05 Respiratory Rate 23 H 06/19/21 17:05 Blood Pressure 106/74 06/19/21 17:05 Pulse Oximetry 100 06/19/21 17:05 MDM - General Adult Medical Decision Making Patient is a 66-year-old male with history of CKD, CAD status post stent x3, CHF presenting to the emergency room with worsening dyspnea and wheezing in the setting of 2 weeks of cough and shortness of breath. On exam, patient is noted to have moderate retraction with expiratory wheezes. Patient satting well on room air. Patient is able to complete full sentences. Signs of volume overload and or extremity. Work-up: CBC, BMP, troponin x2, EKG x2, BMP, x-ray chest, COVID, influenza Intervention: BiPAP: DuoNeb, Solu-Medrol On reassessment, continues to be wheezing. BiPAP appears to be improving patient's symptoms. X-rays consistent with emphysematous changes and cardiomegaly. BNP of 2K. patient received Solu-Medrol multiple breathing treatment, still continues to have increased work of breathing patient will admit to the hospital for COPD exacerbation. Disposition: admission Lab Data : 06/19/21 15:41 06/19/21 15:41 Radiology Impressions Chest X-Ray 06/19/21 15:39 IMPRESSION: 1. Emphysematous changes. 2. Cardiomegaly. 3. Right minor fissure demonstrates some apparent pleural thickening, somewhat more prominent compared to prior exam, chest CT could further evaluate this for underlying possible nodularity. Laboratory Results WBC 9.2 10^3/uL (4.0-10.0) 06/19/21 15:41 RBC 3.61 10^6/uL (4.1-5.3) L 06/19/21 15:41 Hgb 10.6 g/dL (11.7-16.6) L 06/19/21 15:41 Hct 33.5 % (42.0-52.0) L 06/19/21 15:41 MCV 92.8 fl (80-94) 06/19/21 15:41 MCH 29.4 pg (28.0-34.0) 06/19/21 15:41 MCHC 31.6 g/dL (30.0-36.0) 06/19/21 15:41 RDW 16.2 % (12.1-15.1) H 06/19/21 15:41 Plt Count 325 10^3/cmm (130-400) 06/19/21 15:41 MPV 10.6 fL (7.4-10.4) H 06/19/21 15:41 Neut % (Auto) 72.6 % 06/19/21 15:41 Lymph % (Auto) 15.0 % 06/19/21 15:41 [place] % (Auto) 7.8 % 06/19/21 15:41 Eos % (Auto) 4.0 % 06/19/21 15:41 Baso % (Auto) 0.4 % 06/19/21 15:41 Neut # (Auto) 6.67 10^3/uL (1.8-7.7) 06/19/21 15:41 Lymph # (Auto) 1.4 10^3/uL (0.8-4.8) 06/19/21 15:41 [place] # (Auto) 0.7 10^3/uL (0.2-0.9) 06/19/21 15:41 Eos # (Auto) 0.4 10^3/uL (0.0-0.8) 06/19/21 15:41 Baso # (Auto) 0.0 10^3/uL (0.0-0.1) 06/19/21 15:41 Nucleated RBC % (auto) 0 % 06/19/21 15:41 Nucleated RBCs # 0.0 /100WBC 06/19/21 15:41 Specimen Type Arterial 06/19/21 15:48 Sample Site Radial, right 06/19/21 15:48 ABG pH 7.33 (7.35-7.45) L 06/19/21 15:48 ABG pCO2 36.2 mmHg (35-45) 06/19/21 15:48 ABG pO2 486.0 mmHg (80.0-100.0) H 06/19/21 15:48 ABG HCO3 18.9 mmol/L (22-26) L 06/19/21 15:48 ABG O2 Saturation > 100.0 06/19/21 15:48 ABG Base Excess -6.5 mmol/L (-2.0-2.0) L 06/19/21 15:48 Antonio Test Pos 06/19/21 15:48 A-a O2 Gradient 20.8 mmHg (5-10) H 06/19/21 15:48 Hematocrit 33.8 % (42-52) L 06/19/21 15:48 Hgb O2 Saturation 99.6 % (95-100) 06/19/21 15:48 Carboxyhemoglobin 0.6 %THgb (0.4-20.1) 06/19/21 15:48 Methemoglobin 0.4 % (0.4-1.5) 06/19/21 15:48 Total Hemoglobin 11.0 g/dL (14-18) L 06/19/21 15:48 Sodium 139.0 mmol/L (131-143) 06/19/21 15:48 Potassium 4.5 mmol/L (3.5-5.0) 06/19/21 15:48 Glucose 138.0 mg/dL (70-115) H 06/19/21 15:48 Ionized Calcium 1.1 mmol/L (1.1-1.4) 06/19/21 15:48 O2 Delivery Device Bipap 06/19/21 15:48 FiO2 100.0 % 06/19/21 15:48 Translational Specialist ID [place] 06/19/21 15:48 Sodium 135 mmol/L (136-145) L 06/19/21 15:41 Potassium 4.5 mmol/L (3.5-5.1) 06/19/21 15:41 Chloride 104 mmol/L (98-107) 06/19/21 15:41 Carbon Dioxide 18 mmol/L (22-29) L 06/19/21 15:41 Anion Gap 17.5 (5-19) 06/19/21 15:41 BUN 47 mg/dL (8-23) H 06/19/21 15:41 Creatinine 4.9 mg/dL (0.7-1.2) H 06/19/21 15:41 GFR Calculation 14.5 mL/min (90-130) L 06/19/21 15:41 Glucose 138 mg/dL (65-115) H 06/19/21 15:41 Calculated Osmolality 294 mOsm/kg (285-295) 06/19/21 15:41 Calcium 8.2 mg/dL (8.5-10.5) L 06/19/21 15:41 Troponin T Baseline 37 ng/L (0-15) H 06/19/21 15:41 NT-Pro-B Natriuret Pep 2800 pg/mL (0-125) H 06/19/21 15:41 Nasal Influ A H1 2009 PCR Not detected (NOT DETECT) 06/19/21 15:39 Coronavirus 229E (PCR) Not detected (NOT DETECT) 06/19/21 15:39 Influenza A (H1) PCR Not detected (NOT DETECT) 06/19/21 15:39 Influenza A (H3) PCR Not detected (NOT DETECT) 06/19/21 15:39 Influenza Type A Ag Cancelled 06/19/21 15:39 Influenza Type A (PCR) Not detected (NOT DETECT) 06/19/21 15:39 Influenza Type B Ag Cancelled 06/19/21 15:39 Influenza Type B (PCR) Not detected (NOT DETECT) 06/19/21 15:39 SARS-CoV-2 (PCR) Not detected (NOT DETECT) 06/19/21 15:39 Imaging Data Other Imaging: Radiologist's impression: [address] [address] XRay Report Signed Patient: Fredy Hammonds Unit #: [id number] : 1955 Age/Sex: 66 / M ADM Date: 06/19/21 Loc: ER Room/Bed: Attending Dr: Ordering Provider/Ordering MD: Audi Flores MD Date of Service: 06/19/21 Procedure(s): XR chest 1V portable [id number] Accession Number(s): [id number] Report Number: [id number] PROCEDURE INFORMATION: Exam: XR Chest Exam date and time: 06/19/2021 3:13 PM Age: 66 years old Clinical indication: Shortness of breath; Additional info: Dyspnea TECHNIQUE: Imaging protocol: XR of the chest. Views: 1 view. COMPARISON: CR XR chest 1V portable [id number] 06/17/2020 3:10 PM FINDINGS: Lungs: Emphysematous changes. Pleural spaces: Right minor fissure demonstrates some apparent pleural thickening, somewhat more prominent compared to prior exam, chest CT could further evaluate this for underlying possible nodularity. Heart/Mediastinum: Cardiomegaly. Bones/joints: Unremarkable. XR/XR chest 1V portable [id number] IMPRESSION: 1. Emphysematous changes. 2. Cardiomegaly. 3. Right minor fissure demonstrates some apparent pleural thickening, somewhat more prominent compared to prior exam, chest CT could further evaluate this for underlying possible nodularity. ? Dictated By: Latrell Gongora MD Signed By: Latrell Gongora MD Signed Date/Time: 06/19/21 1729 DD/ 1513 Discharge Plan Discharge Patient Disposition: Admitted As Inpatient Clinical Impression: COPD exacerbation, Acute kidney injury superimposed on CKD, CHF exacerbation Condition: Stable Coding Level of Care Code ED Pharmacist [facility] Fwd Exam Comprehensive
[2021-06-19] MEDS: ipratropium-albuterol 3 mL Neb INHALATION ×2 (15:48→21:19)
[2021-06-19 15:52] LABS: Basophils % 0.4 %; Eosinophils # 0.4 10^3/uL (0.0-0.8); Hematocrit 33.5 % (42.0-52.0); Hemoglobin 10.6 g/dL (11.7-16.6); Lymphocytes # 1.4 10^3/uL (0.8-4.8); Mean Corpuscular HGB Conc 31.6 g/dL (30.0-36.0); Mean Corpuscular Hemoglobin 29.4 pg (28.0-34.0); Mean Corpuscular Volume 92.8 fl (80-94); Mean Platelet Volume 10.6 fL (7.4-10.4); Monocytes # 0.7 10^3/uL (0.2-0.9); Monocytes % 7.8 %; Neutrophils # 6.67 10^3/uL (1.8-7.7); Neutrophils % 72.6 %; Nucleated Red Blood Cells % 0 %; Platelet Count 325 10^3/cmm (130-400); Red Blood Count 3.61 10^6/uL (4.1-5.3); Red Cell Distribution Width 16.2 % (12.1-15.1); White Blood Count 9.2 10^3/uL (4.0-10.0)
[2021-06-19 16:01] LABS: ABG PCO2 36.2 mmHg (35-45); ABG PH Result 7.33 (7.35-7.45); Alveolar-Arterial Oxygen Gradi 20.8 mmHg (5-10); Arterial Blood Gas Hematocrit 33.8 % (42-52); Base Excess ABG -6.5 mmol/L (-2.0-2.0); Blood Gas Allen Test Pos; Blood Gas Operator Identificat WALCI; Blood Gas Sample Site Radial, right; Blood Gas Sample Type Arterial; Carboxyhemoglobin 0.6 %THgb (0.4-20.1); HCO3 ABG 18.9 mmol/L (22-26); HGB O2 Sat 99.6 % (95-100); Ionized Calcium Level - ABG 1.1 mmol/L (1.1-1.4); Methemoglobin 0.4 % (0.4-1.5); Oxygen Device BIPAP; Oxygen Saturation ABG > 100.0; Potassium Level - ABG 4.5 mmol/L (3.5-5.0)
[2021-06-19 16:12] LABS: Troponin(5th) Baseline 37 ng/L (0-15)
[2021-06-19 16:21] LABS: Anion Gap 17.5 (5-19); Blood Urea Nitrogen 47 mg/dL (8-23); Calcium 8.2 mg/dL (8.5-10.5); Carbon Dioxide 18 mmol/L (22-29); Chloride 104 mmol/L (98-107); Glomerular Filtration Rate 14.5 mL/min (90-130); Glucose 138 mg/dL (65-115); NT Pro B Type Natriuretic Pept 2800 pg/mL (0-125); Osmolality Calculated 294 mOsm/kg (285-295); Potassium 4.5 mmol/L (3.5-5.1); Sodium 135 mmol/L (136-145)
--- NOTE | 2021-06-19 16:55 | PC.NURSE ---
Pt c/o increased shortness of breath. Ot on 3LNC and SaO2 reads 100%. Pt educated on breathing techniques. PT following directions well.
--- NOTE | 2021-06-19 17:05 | PC.NURSE ---
PT reassessed and states he is feeling better. Breathing equal and unlabored. SaO2 100%. States he does feel as anxious.
--- NOTE | 2021-06-19 17:40 | ECG_ITS ---
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 Measurements Intervals [place] Rate: 78 P: 64 MT: 137 QRS: -39 QRSD: 96 T: 216 QT: 388 QTc: 444 Interpretive Statements SINUS RHYTHM LEFT AXIS DEVIATION [QRS AXIS < -30] MODERATE T-WAVE ABNORMALITY, CONSIDER LATERAL ISCHEMIA [-0.1+ mV T-WAVE IN I/aVL/V5/V6] MODERATE T-WAVE ABNORMALITY, CONSIDER INFERIOR ISCHEMIA [-0.1+ mV T-WAVE IN II/aVF] Compared to ECG 06/19/2021 14:57:21 Ventricular premature complex(es) no longer present Myocardial infarct finding no longer present T-wave abnormality still present Possible ischemia still present Electronically Signed On 06-19-2021 20:09:53 CDT by Ben Rincon M.D. [id number]
[2021-06-19 17:45] LABS: Adenovirus Not Detected (NOT DETECT); Chlamydia Pneumoniae Not Detected (NOT DETECT); Coronavirus 229E,HKU1,NL63,OC4 Not Detected (NOT DETECT); Human Metapneumovirus Not Detected (NOT DETECT); Human Rhinovirus/Enterovirus Not Detected (NOT DETECT); Influenza A Not Detected (NOT DETECT); Influenza A H1 Not Detected (NOT DETECT); Influenza A H1-2009 Not Detected (NOT DETECT); Influenza A H3 Not Detected (NOT DETECT); Influenza B Not Detected (NOT DETECT); Mycoplasma Pneumoniae Not Detected (NOT DETECT); Parainfluenza Virus Type 1 Not Detected (NOT DETECT); Parainfluenza Virus Type 2 Not Detected (NOT DETECT); Parainfluenza Virus Type 3 Not Detected (NOT DETECT); Parainfluenza Virus Type 4 Not Detected (NOT DETECT); Respiratory Syncytial Virus A Not Detected (NOT DETECT); Respiratory Syncytial Virus B Not Detected (NOT DETECT); SARS-COV-2 Not Detected (NOT DETECT)
[2021-06-19 17:49] LABS: Results from GEN
[2021-06-19 18:00] LABS: Troponin 5 2HR 36.43 ng/L (0-15)
[2021-06-19 18:03] LABS: Troponin 5 2HR Delta -0.57 ABS# (0-10)
--- NOTE | 2021-06-19 18:31 | P.HP_ITS ---
Providers/Chief Complaint Primary Care Provider: Kian Colon MD Chief Complaint: RESPIRATORY DISTRESS History of Present Illness Fredy Hammonds is a 66 year old male with medical history of hypertension coronary artery disease status post sten combined systolic and diastolic heart failure, CKD stage IV, moderate pulmonary hypertension Was brought in with chief complaint of worsening shortness of breath , cough with productive whitish sputum going on for the last 2 weeks, Patient currently denies any fever, chills , PND , orthopnea , chest pain. Patient was today at his primary care physician, and was sent to the ER as he was having significant shortness of breath. Upon arrival in the ER he was worked up for vomiting complaint: Pertinent imaging studies: X-ray chest: Chronic emphysematous changes, no infiltrates, no pleural effusion. EKG: SINUS RHYTHM WITH OCCASIONAL VENTRICULAR PREMATURE COMPLEXES , LEFT AXIS DEVIATION? [QRS AXIS < -30] Pertinent labs: WBC 9.2, H&H : 10.6/ 33.5 , PLT : 325 , serum sodium 135 serum potassium 4.5 , BUN / serum creatinine: 47/4.9 Baseline troponin 37, 2-hour troponin 36.43 , 2-hour delta: -0.57 , proBNP:2800 Covid PCR negative, influenza negative. Review of Systems General: Reports: 10 or more systems reviewed and unremarkable except in HPI and below Const: Denies: fever(s), chills, body aches, change in appetite or diaphoresis Card: Denies: palpitations, edema, swelling of feet/ankles or leg pain with exertion Resp: Denies: pain on inspiration GI: Denies: abdominal pain, nausea, vomiting, diarrhea or constipation : Denies: flank pain or difficulty urinating Musc: Denies: back pain, extremity pain or extremity swelling Neuro: Denies: difficulty walking or confusion Medications/Allergies Home Medications Medication Instructions Recorded Confirmed Last Taken Type nitroglycerin 0.4 mg sublingual 0.4 mg SUBLINGUAL Q5M PRN #25 tab 06/17/20 06/19/21 Unknown Rx tablet (Nitrostat) amlodipine 10 mg tablet 10 mg PO DAILY #90 tab 06/26/20 06/19/21 01/29/21 Rx Cane #1 ea 10/03/20 06/19/21 Unknown Rx clotrimazole-betamethasone 1 1 applic TOPICAL BID #45 g 10/22/20 06/19/2121 Rx %-0.05 % topical cream Lumbar corset #1 ea 11/03/20 06/19/21 Unknown Rx cefdinir 300 mg capsule 300 mg PO DAILY cap 01/20/21 06/19/21 01/29/21 History fluticasone 250 mcg-salmeterol 50 1 inh INHALATION BID #60 ea 01/20/21 06/19/21 Unknown Rx mcg/dose blistr powdr for inhalation (Wixela Inhub) tramadol 50 mg tablet 50 mg PO DAILY 01/20/21 06/19/21 01/28/21 History trazodone 50 mg tablet 25 mg PO DAILY #30 tab 01/26/21 06/19/21 01/28/21 Rx oxycodone 5 mg capsule 5 mg PO Q4H #40 cap 01/29/21 06/19/21 Unknown Rx sildenafil 100 mg tablet 50 mg PO DAILY PRN #30 tab 04/01/21 06/19/21 Unknown Rx hydralazine 25 mg tablet 25 mg PO TID #180 tab 05/11/21 06/19/21 Unknown Rx clopidogrel 75 mg tablet See Rx Instructions .ROUTE 05/13/21 06/19/21 Unknown Rx .COMPLEX #90 tablet furosemide 40 mg tablet 40 mg PO DAILY PRN #90 tab 05/13/21 06/19/21 Unknown Rx carvedilol 25 mg tablet 25 mg PO BID 90 Days #180 tab 05/14/21 06/19/21 Unknown Rx hydrocodone 5 mg-acetaminophen 325 1 tab PO Q4H PRN 7 Days #30 tab 05/14/21 06/19/21 Unknown Rx mg tablet albuterol sulfate 90 mcg/actuation See Rx Instructions .ROUTE 05/26/21 06/19/21 Unknown Rx aerosol inhaler .COMPLEX #17 g Allergies Allergy/AdvReac Type Severity Reaction Status Date / Time No Known Allergies Allergy Verified 06/19/21 14:41 PFSH Acute PFSH: Medical History Abnormal ultrasound of kidney Acute kidney injury superimposed on chronic kidney disease Anemia in chronic kidney disease (CKD) BPH NOS w ur obs/LUTS Cardiomyopathy Chronic kidney disease CKD (chronic kidney disease) stage 4, GFR 15-29 ml/min He will follow up with me on 03/18/2021 for his CKD and diabetic counseling. He has a routine follow-up in April. He will need to get his sutures removed on 03/18/2021. Combined systolic and diastolic cardiac dysfunction Elevated PSA Erectile dysfunction History of pulmonary embolism Hyperlipidemia Hypersomnolence Hypertensive urgency Insomnia Ischemic cardiomyopathy Left shoulder pain Mild aortic regurgitation Mild aortic stenosis 12/07/2018: Mean gradient 4.6 mmHg, aortic valve area 2.2 cm? Moderate pulmonary arterial systolic hypertension Moderate to severe pulmonary hypertension 12/07/2018: 70 mmHg Presence of stent in LAD coronary artery Respiratory distress Sebaceous cyst Shortness of Breath Smoking Tear of left rotator cuff Tinea pedis of right foot Surgical History H/O abdominal surgery hernia History of ankle surgery History of back surgery Family History Family/Other Cancer Mother Dementia Diabetes Sister Diabetes CAD (coronary artery disease) Father , AT AGE 78 Brain aneurysm Denies family history of Clotting disorder Hyperlipidemia Psychiatric illness Chronic kidney disease (CKD) Suicide Anesthesia complication Bleeding disorder Family history of premature coronary artery disease Lung disease Hypertension Stroke Social History Smoking and tobacco status: current every day smoker cigarettes Years cigarettes smoked: 20 Quit status (tobacco): considering quitting Alcohol intake: current Alcohol intake frequency: few times a month Marital status: Current occupational status: disabled History of recent travel: No Vitals/I&O/Wt Last Vital Signs Temp 97.4 F L 06/19/21 15:34 Pulse 55 L 06/19/21 18:20 Resp 23 H 06/19/21 17:05 BP 106/74 06/19/21 17:05 Pulse Ox 100 06/19/21 18:20 Weight last 48 hrs Weight 72.575 kg Physical Exam Const: COMMON NORMALS: patient oriented x3 HENMT: COMMON NORMALS: normocephalic and atraumatic HEAD & SCALP: normocephalic and atraumatic Chest: COMMONS NORMALS: normal inspection of the chest and normal palpation of entire chest wall CHEST: Yes Symmetrical chest wall rise Resp: EFFORT & INSPECTION: Yes symmetric chest movement OTHER: Minimal expiratory wheezing present in both lung Cardio: COMMON NORMALS: regular rate, regular rhythm, S1 normal heart sound present, S2 normal heart sound present, No gallops present (Cardio), No murmurs present (Cardio), No rub (Cardio) and Peripheral pulses 2+ throughout RATE: regular rate RHYTHM: regular rhythm HEART SOUNDS: S1 normal heart sound present and S2 normal heart sound present PERIPHERAL PULSES: Peripheral pulses 2+ throughout GI: COMMON NORMALS: Normal to inspection, nondistended, normoactive bowel sounds present, Soft to palpation, non-tender, No hepatosplenomegaly present and no masses AUSCULTATION: Yes normoactive bowel sounds PALPATION: Yes Soft to palpation and Yes No hepatosplenomegaly present RECTAL EXAM: Yes deferred Extremity: COMMON NORMALS: no clubbing, cyanosis or edema and no pedal edema Neuro: COMMON NORMALS: patient oriented x3 Data : 06/19/21 15:41 06/19/21 15:41 A&P Assessment and plan (1) COPD exacerbation: Status: Acute (2) Acute kidney injury superimposed on CKD: Status: Acute (3) Anemia in chronic kidney disease (CKD): Status: Acute (4) CKD (chronic kidney disease) stage 4, GFR 15-29 ml/min: Status: Acute (5) Moderate to severe pulmonary hypertension: Status: Acute (6) Mild aortic stenosis: Status: Acute Plan 66 year old male with medical history of hypertension coronary artery disease status post sten combined systolic and diastolic heart failure, CKD stage IV, moderate pulmonary hypertension, mild aortic stenosis Was brought in with chief complaint of worsening shortness of breath , cough with productive whitish sputum going on for the last 2 weeks. #COPD exacerbation: Patient is presenting with worsening shortness of breath, productive cough with whitish sputum,has bilateral minimal expiratory wheezing. Former smoker. Duo nebs Solu-Medrol 60 IV every 8 Azithromycin 500 IV daily Supplemental oxygen as needed #ALBERTO on worsening CKD stage 4 : Baseline serum creatinine around 3.3-3.5 Current serum creatinine is 4.9. We will continue to monitor BMP Encourage oral intake Lee output charting Avoid usual nephrotoxic's #History of coronary artery disease status post stent: Continue Plavix, carvedilol #Combined systolic and diastolic heart failure: Currently compensated Monitor and output charting Daily weight Monitor for electrolytes #Moderate pulmonary hypertension: We will schedule pulmonary follow-up as an outpatient Possible right heart cath for further work-up #Mild aortic stenosis Continue with cardiology follow-up as an outpatient #DVT prophylaxis: On heparin #CODE STATUS: Full code Attestations Medical Necessity Statement*: Patient needs to be in hospital for management of COPD exacerbation. Time Spent in Patient Care: Greater than 35 minutes (>than 50% of time spent in counselling and/or direct pt care on unit) . Coding Level of Care Code Acute [employer]on Folder for Ramana Pillai Diagnoses COPD exacerbation J44.1 Acute kidney injury superimposed on CKD N17.9; N18.9 Anemia in chronic kidney disease (CKD) N18.9; D63.1 CKD (chronic kidney disease) stage 4, GFR 15-29 ml/min N18.4 Moderate to severe pulmonary hypertension I27.20 Mild aortic stenosis I35.0
[2021-06-19] MEDS: acetaminophen 325 mg Tablet 650 MG PO (18:41)
[2021-06-19] MEDS: guaiFENesin-dextromethorphan UDC 10 mL PO ×2 (18:42→23:43)
[2021-06-19] MEDS: heparin 5,000 unit/mL INJ 1 mL 5000 UNIT SUBCUT (18:43)
[2021-06-19] MEDS: azithromycin 500 MG in sodium chloride 0.9% 250 ML 250 MG IV (20:19)
--- NOTE | 2021-06-19 21:40 | ECG_ITS ---
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 Measurements Intervals [place] Rate: 67 P: 74 FL: 157 QRS: -36 QRSD: 95 T: 251 QT: 409 QTc: 434 Interpretive Statements SINUS RHYTHM WITH OCCASIONAL VENTRICULAR PREMATURE COMPLEXES LEFT AXIS DEVIATION [QRS AXIS < -30] POSSIBLE ANTERIOR MYOCARDIAL INFARCTION , OF INDETERMINATE AGE [30 ms Q WAVE IN V3/V4, OR R < 0.2 mV IN V4] MODERATE T-WAVE ABNORMALITY, CONSIDER INFERIOR ISCHEMIA [-0.1+ mV T-WAVE IN II/aVF] Compared to ECG 09/08/2020 10:31:59 Ventricular premature complex(es) now present T-wave abnormality now present Possible ischemia now present Sinus tachycardia no longer present Left ventricular hypertrophy no longer present ST (T wave) deviation no longer present Myocardial infarct finding still present Electronically Signed On 06-19-2021 20:10:13 CDT by Ben Rincon M.D. [id number]
--- NOTE | 2021-06-19 22:40 | PC.NURSE ---
Patient urinated a moderate amount in toilet instead of urinal. Educated patient on the need to have accurate intake and output. Patient verbalized understanding. Urinal within reach of patient
[2021-06-19 23:15] LABS: Troponin 5 6HR 34.97 ng/L (0-15)
[2021-06-19 23:34] LABS: Troponin 5 6HR Delta -2.03 ng/L (0-12)
[2021-06-20] VITALS (13 sets, daily range): BP systolic 125–147; BP diastolic 78–85; PULSE 64–89; RESP 15–24; TEMP 36.5–36.8; O2SAT 94–99
[2021-06-20] MEDS: ipratropium-albuterol 3 mL Neb INHALATION ×3 (00:46→07:45)
[2021-06-20] MEDS: acetaminophen 325 mg Tablet 650 MG PO (00:50)
[2021-06-20 04:20] LABS: Basophils % 0.2 %; Eosinophils % 0.2 %; Hematocrit 31.8 % (42.0-52.0); Hemoglobin 10.4 g/dL (11.7-16.6); Lymphocytes # 0.6 10^3/uL (0.8-4.8); Lymphocytes % 10.2 %; Mean Corpuscular HGB Conc 32.7 g/dL (30.0-36.0); Mean Corpuscular Hemoglobin 29.9 pg (28.0-34.0); Mean Corpuscular Volume 91.4 fl (80-94); Mean Platelet Volume 10.4 fL (7.4-10.4); Monocytes # 0.1 10^3/uL (0.2-0.9); Monocytes % 1.1 %; Neutrophils # 4.85 10^3/uL (1.8-7.7); Neutrophils % 87.9 %; Nucleated Red Blood Cells % 0 %; Platelet Count 343 10^3/cmm (130-400); Red Blood Count 3.48 10^6/uL (4.1-5.3); Red Cell Distribution Width 16.6 % (12.1-15.1); White Blood Count 5.5 10^3/uL (4.0-10.0)
[2021-06-20 04:41] LABS: Anion Gap 18.7 (5-19); Blood Urea Nitrogen 55 mg/dL (8-23); Calcium 8.5 mg/dL (8.5-10.5); Carbon Dioxide 19 mmol/L (22-29); Chloride 106 mmol/L (98-107); Glomerular Filtration Rate 12.9 mL/min (90-130); Glucose 152 mg/dL (65-115); Osmolality Calculated 306 mOsm/kg (285-295); Potassium 4.7 mmol/L (3.5-5.1); Sodium 139 mmol/L (136-145)
[2021-06-20] MEDS: heparin 5,000 unit/mL INJ 1 mL 5000 UNIT SUBCUT (05:31)
[2021-06-20] MEDS: guaiFENesin-dextromethorphan UDC 10 mL PO (05:31)
[2021-06-20] MEDS: trazodone 50 mg Tablet 25 MG PO (08:03)
[2021-06-20] MEDS: clopidogrel 75 mg Tablet PO (08:03)
[2021-06-20] MEDS: amlodipine 10 mg Tablet PO (08:03)
[2021-06-20] MEDS: carvedilol 25 mg Tablet PO (08:03)
--- NOTE | 2021-06-20 08:05 | PC.NURSE ---
BP was 147/82 at time of BP meds this am
--- NOTE | 2021-06-20 10:37 | PM.DCS ---
Discharge Providers Date of Admission: 06/19/21 17:53 Date of Discharge: June 20, 2021 Attending Provider at Admission: Jhonatan Stafford MD Attending Provider at Discharge: Jhonatan Stafford MD Primary Care Provider: Kian Colon MD Diagnoses at Discharge Discharge Diagnosis (1) COPD exacerbation: Status: Acute (2) Acute kidney injury superimposed on CKD: Status: Acute (3) Anemia in chronic kidney disease (CKD): Status: Acute (4) CKD (chronic kidney disease) stage 4, GFR 15-29 ml/min: Status: Acute Permanent problem details: He will follow up with me on 03/18/2021 for his CKD and diabetic counseling. He has a routine follow-up in April. He will need to get his sutures removed on 03/18/2021. (5) Moderate to severe pulmonary hypertension: Status: Acute Permanent problem details: 12/07/2018: 70 mmHg (6) Mild aortic stenosis: Status: Acute Permanent problem details: 12/07/2018: Mean gradient 4.6 mmHg, aortic valve area 2.2 cm? 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 Patient was today at his primary care physician, and was sent to the ER as he was having significant shortness of breath. Upon arrival in the ER he was worked up for vomiting complaint: Pertinent imaging studies: X-ray chest: Chronic emphysematous changes, no infiltrates, no pleural effusion. EKG:?SINUS RHYTHM WITH OCCASIONAL VENTRICULAR PREMATURE COMPLEXES , LEFT AXIS DEVIATION? [QRS AXIS < -30] Pertinent labs: WBC 9.2, H&H : 10.6/ 33.5 , PLT : 325 , serum sodium 135 serum potassium 4.5 , BUN / serum creatinine: 47/4.9 Baseline troponin 37, 2-hour troponin 36.43 , 2-hour delta: -0.57 , proBNP:2800 Covid PCR negative, influenza negative. Hospital course: Patient was admitted for the management of COPD exacerbation: He was kept on steroids, duo nebs, IV azithromycin, antitussives, supplemental oxygen as needed.To which he responded well shortness of breath and wheezing has significantly improved at the time of discharge. He was discharged on p.o. prednisone, azithromycin, he will continue with his home inhalers, will continue with CPAP at night for his sleep apnea. For his Moderate pulmonary hypertension: Has been scheduled to see pulmonary as an outpatient.For his ALBERTO and worsening CKD stage IV: Patient is scheduled to see Dr. Hightower as an outpatient, patient has been discharged on p.o. sodium bicarb tablets for metabolic acidosis secondary to kidney disease, no urgent need for dialysis.Combined systolic and diastolic heart failure: He was compensated, for his history of coronary artery disease, and mild aortic stenosis, he will continue to follow cardiology as an outpatient. Patient's overall responded well to above medical management and is being discharged in stable condition to home. Physical Exam Const: COMMON NORMALS: patient oriented x3 HENMT: COMMON NORMALS: normocephalic and atraumatic HEAD & SCALP: normocephalic and atraumatic Chest: COMMONS NORMALS: normal inspection of the chest and normal palpation of entire chest wall CHEST: Yes Symmetrical chest wall rise Resp: EFFORT & INSPECTION: Yes symmetric chest movement OTHER: Minimal expiratory wheezing present in both lung Cardio: COMMON NORMALS: regular rate, regular rhythm, S1 normal heart sound present, S2 normal heart sound present, No gallops present (Cardio), No murmurs present (Cardio), No rub (Cardio) and Peripheral pulses 2+ throughout RATE: regular rate RHYTHM: regular rhythm HEART SOUNDS: S1 normal heart sound present and S2 normal heart sound present PERIPHERAL PULSES: Peripheral pulses 2+ throughout GI: COMMON NORMALS: Normal to inspection, nondistended, normoactive bowel sounds present, Soft to palpation, non-tender, No hepatosplenomegaly present and no masses AUSCULTATION: Yes normoactive bowel sounds PALPATION: Yes Soft to palpation and Yes No hepatosplenomegaly present RECTAL EXAM: Yes deferred Extremity: COMMON NORMALS: no clubbing, cyanosis or edema and no pedal edema Neuro: COMMON NORMALS: patient oriented x3 Discharge Data Studies Completed and Pending Completed Studies During Hospitalization Category Date Time Status XR chest 1V portable [id number] Urgent Exams 06/19/21 15:39 Completed Pending at discharge Category Date Time Status Basic Metabolic Panel AM LABS Lab 06/21/21 04:00 Ordered Basic Metabolic Panel AM LABS Lab 06/22/21 04:00 Ordered Complete Blood Count w/Auto AM LABS Lab 06/21/21 04:00 Ordered Complete Blood Count w/Auto AM LABS Lab 06/22/21 04:00 Ordered Radiology Impressions Chest X-Ray 06/19/21 15:39 IMPRESSION: 1. Emphysematous changes. 2. Cardiomegaly. 3. Right minor fissure demonstrates some apparent pleural thickening, somewhat more prominent compared to prior exam, chest CT could further evaluate this for underlying possible nodularity. Laboratory Results WBC 5.5 10^3/uL (4.0-10.0) 06/20/21 03:25 RBC 3.48 10^6/uL (4.1-5.3) L 06/20/21 03:25 Hgb 10.4 g/dL (11.7-16.6) L 06/20/21 03:25 Hct 31.8 % (42.0-52.0) L 06/20/21 03:25 MCV 91.4 fl (80-94) 06/20/21 03:25 MCH 29.9 pg (28.0-34.0) 06/20/21 03:25 MCHC 32.7 g/dL (30.0-36.0) 06/20/21 03:25 RDW 16.6 % (12.1-15.1) H 06/20/21 03:25 Plt Count 343 10^3/cmm (130-400) 06/20/21 03:25 MPV 10.4 fL (7.4-10.4) 06/20/21 03:25 Neut % (Auto) 87.9 % 06/20/21 03:25 Lymph % (Auto) 10.2 % 06/20/21 03:25 [place] % (Auto) 1.1 % 06/20/21 03:25 Eos % (Auto) 0.2 % 06/20/21 03:25 Baso % (Auto) 0.2 % 06/20/21 03:25 Neut # (Auto) 4.85 10^3/uL (1.8-7.7) 06/20/21 03:25 Lymph # (Auto) 0.6 10^3/uL (0.8-4.8) L 06/20/21 03:25 [place] # (Auto) 0.1 10^3/uL (0.2-0.9) L 06/20/21 03:25 Eos # (Auto) 0.0 10^3/uL (0.0-0.8) 06/20/21 03:25 Baso # (Auto) 0.0 10^3/uL (0.0-0.1) 06/20/21 03:25 Nucleated RBC % (auto) 0 % 06/20/21 03:25 Nucleated RBCs # 0.0 /100WBC 06/20/21 03:25 Specimen Type Arterial 06/19/21 15:48 Sample Site Radial, right 06/19/21 15:48 ABG pH 7.33 (7.35-7.45) L 06/19/21 15:48 ABG pCO2 36.2 mmHg (35-45) 06/19/21 15:48 ABG pO2 486.0 mmHg (80.0-100.0) H 06/19/21 15:48 ABG HCO3 18.9 mmol/L (22-26) L 06/19/21 15:48 ABG O2 Saturation > 100.0 06/19/21 15:48 ABG Base Excess -6.5 mmol/L (-2.0-2.0) L 06/19/21 15:48 Antonio Test Pos 06/19/21 15:48 A-a O2 Gradient 20.8 mmHg (5-10) H 06/19/21 15:48 Hematocrit 33.8 % (42-52) L 06/19/21 15:48 Hgb O2 Saturation 99.6 % (95-100) 06/19/21 15:48 Carboxyhemoglobin 0.6 %THgb (0.4-20.1) 06/19/21 15:48 Methemoglobin 0.4 % (0.4-1.5) 06/19/21 15:48 Total Hemoglobin 11.0 g/dL (14-18) L 06/19/21 15:48 Sodium 139.0 mmol/L (131-143) 06/19/21 15:48 Potassium 4.5 mmol/L (3.5-5.0) 06/19/21 15:48 Glucose 138.0 mg/dL (70-115) H 06/19/21 15:48 Ionized Calcium 1.1 mmol/L (1.1-1.4) 06/19/21 15:48 O2 Delivery Device Bipap 06/19/21 15:48 FiO2 100.0 % 06/19/21 15:48 [employer] [place] 06/19/21 15:48 Sodium 139 mmol/L (136-145) 06/20/21 03:25 Potassium 4.7 mmol/L (3.5-5.1) 06/20/21 03:25 Chloride 106 mmol/L (98-107) 06/20/21 03:25 Carbon Dioxide 19 mmol/L (22-29) L 06/20/21 03:25 Anion Gap 18.7 (5-19) 06/20/21 03:25 BUN 55 mg/dL (8-23) H 06/20/21 03:25 Creatinine 5.4 mg/dL (0.7-1.2) H 06/20/21 03:25 GFR Calculation 12.9 mL/min (90-130) L 06/20/21 03:25 Glucose 152 mg/dL (65-115) H 06/20/21 03:25 Calculated Osmolality 306 mOsm/kg (285-295) H 06/20/21 03:25 Calcium 8.5 mg/dL (8.5-10.5) 06/20/21 03:25 Troponin T Baseline 37 ng/L (0-15) H 06/19/21 15:41 Troponin T 120 Minute 36.43 ng/L (0-15) H 06/19/21 17:28 Delta Troponin T -0.57 ABS# (0-10) L 06/19/21 17:28 Troponin T Hi Sens 6Hr 34.97 ng/L (0-15) H 06/19/21 22:20 Troponin T Hi Sens 6Hr Delta -2.03 ng/L (0-12) L 06/19/21 22:20 NT-Pro-B Natriuret Pep 2800 pg/mL (0-125) H 06/19/21 15:41 Nasal Influ A H1 2009 PCR Not detected (NOT DETECT) 06/19/21 15:39 Coronavirus 229E (PCR) Not detected (NOT DETECT) 06/19/21 15:39 Influenza A (H1) PCR Not detected (NOT DETECT) 06/19/21 15:39 Influenza A (H3) PCR Not detected (NOT DETECT) 06/19/21 15:39 Influenza Type A Ag Cancelled 06/19/21 15:39 Influenza Type A (PCR) Not detected (NOT DETECT) 06/19/21 15:39 Influenza Type B Ag Cancelled 06/19/21 15:39 Influenza Type B (PCR) Not detected (NOT DETECT) 06/19/21 15:39 SARS-CoV-2 (PCR) Not detected (NOT DETECT) 06/19/21 15:39 Vitals Last Vital Signs Temp 97.8 F 06/20/21 08:15 Pulse 83 06/20/21 08:15 Resp 15 06/20/21 08:15 BP 125/78 06/20/21 08:15 Pulse Ox 96 06/20/21 08:15 Discharge Plan Discharge Patient Disposition: Home Condition: Stable Prescriptions: New prednisone 20 mg tablet 40 mg PO DAILY Qty: 7 0RF dextromethorphan-guaifenesin 10-100 mg/5 mL Syrup 10 ml PO Q6H 7 Days Qty: 280 0RF azithromycin 500 mg tablet 500 mg PO DAILY 5 Days Qty: 5 0RF sodium bicarbonate 650 mg tablet 650 mg PO TID Qty: 90 3RF Continued fluticasone propion-salmeterol [Wixela Inhub] 250-50 mcg/dose blister with device 1 inh INHALATION BID Qty: 60 3RF clotrimazole-betamethasone 1-0.05 % cream 1 applic topical BID Qty: 45 1RF trazodone 50 mg tablet 25 mg PO DAILY Qty: 30 3RF sildenafil 100 mg tablet 50 mg PO DAILY PRN (Reason: sexual activity) Qty: 30 0RF Rx Instructions: take 30 min to 4 hrs before activity,do not take Isosorbide on same day of use. hydrocodone-acetaminophen 5-325 mg tablet 1 tab PO Q4H PRN (Reason: pain) 7 Days Qty: 30 0RF Nitrostat 0.4 mg tablet, sublingual 0.4 mg SUBLINGUAL Q5M PRN (Reason: Chest Pain) Qty: 25 0RF amlodipine 10 mg tablet 10 mg PO DAILY Qty: 90 3RF (DME) Cane See Rx Instructions .Route .MEDSUPPLY Qty: 1 0RF Rx Instructions: As directed (DME) Lumbar corset See Rx Instructions .Route .MEDSUPPLY Qty: 1 0RF Rx Instructions: As directed hydralazine 25 mg tablet 25 mg PO TID Qty: 180 0RF clopidogrel 75 mg tablet See Rx Instructions .ROUTE .COMPLEX Qty: 90 3RF Dose Instruction: TAKE 1 TABLET BY MOUTH DAILY Rx Instructions: TAKE 1 TABLET BY MOUTH DAILY furosemide 40 mg tablet 40 mg PO DAILY PRN (Reason: Edema) Qty: 90 1RF carvedilol 25 mg tablet 25 mg PO BID 90 Days Qty: 180 0RF Rx Instructions: must administer with a meal/food albuterol sulfate 90 mcg/actuation HFA aerosol inhaler See Rx Instructions .ROUTE .COMPLEX Qty: 17 0RF Dose Instruction: INHALE 2 PUFFS BY MOUTH EVERY FOUR HOURS NEEDED SHORTNESS OF BREATH OR WHEEZING Rx Instructions: INHALE 2 PUFFS BY MOUTH EVERY FOUR HOURS NEEDED SHORTNESS OF BREATH OR WHEEZING Discharge Orders: Discharge Order (Routine); Ordered 06/20/21 Ordered By: Jhonatan Stafford Referrals: Kian Colon MD [Primary Care Provider] - 1 month (shuld contact tuesday06/22/21 with appointment ) Jeevan Hightower MD [Referring] - 1 month (should contact tuesday06/22/21 with appointment ) Oscar Hanks MD [Physician] - 1 week (should contact tuesday06/22/21 with appointment) Discharge Activity: Resume usual activity Patient Instructions: Prednisone (By mouth), Azithromycin (By mouth), Dextromethorphan/Guaifenesin/Phenylephrine (By mouth), Sodium Bicarbonate (By mouth), Opioid Safety Discharge Attestations Time Spent in Discharge Care*: less than 30 min Quality Metrics Clinical Quality Measures [ No reported AMI, CVA or VTE this stay] Coding Level of Care Code Acute Chg FW DC note Diagnoses COPD exacerbation J44.1 Acute kidney injury superimposed on CKD N17.9; N18.9 Anemia in chronic kidney disease (CKD) N18.9; D63.1 CKD (chronic kidney disease) stage 4, GFR 15-29 ml/min N18.4 Moderate to severe pulmonary hypertension I27.20 Mild aortic stenosis I35.0
--- NOTE | 2021-06-20 11:28 | PC.NURSE ---
Discharge paperwork discussed with patient, follow up appointments and new medications. Patient verbalized understanding.
--- NOTE | 2021-06-22 09:10 | PC.SOCIAL ---
Patient called indicating shortness of breath has worsened although did not notice laboring breathing etc during conversation. Offered to try and get him in with the clinic for follow up but indicate his PCP is not there on Mondays and was not interested in seeing anyone else. Also mentioned Urgent Care as an option however patient feels he needs to be evaluated in the ED. Explained to patient that is his choice and if he feels that he is have urgent/ severe concerns then he should be evaluated most appropriate location. He will present to ED per patient.
--- NOTE | 2021-06-23 17:29 | PC.NURSE ---
PATIENT'S MEDICATIONS CALLED INTO [facility] ON 06-23 BY THIS NURSE.
== END 2021-06-20 11:58 | disposition home or self-care (01) ==
LOC: ER 17:47 → MEDSURG 19:08
PROVIDERS: Admitting Provider Internal Medicine; Emergency Provider Emergency Medicine; PCP Family Medicine Adult Medicine; Visit Provider Internal Medicine
DX: J44.1 Chronic obstructive pulmonary disease with (acute) exacerbation (principal); N17.9 Acute kidney failure, unspecified; D63.1 Anemia in chronic kidney disease; I13.0 Hypertensive heart and chronic kidney disease with heart failure and stage 1 through stage 4 chronic kidney disease, or unspecified chronic kidney disease; N18.4 Chronic kidney disease, stage 4 (severe); I50.40 Unspecified combined systolic (congestive) and diastolic (congestive) heart failure; I27.20 Pulmonary hypertension, unspecified; I35.0 Nonrheumatic aortic (valve) stenosis; I25.10 Atherosclerotic heart disease of native coronary artery without angina pectoris; Z95.5 Presence of coronary angioplasty implant and graft; F17.210 Nicotine dependence, cigarettes, uncomplicated
CPT/HCPCS: 36415; 36600; 71045; 80048; 80051; 82330; 82805; 83880; 84484; 85025; 87631; 87635; 93005; 94640; 94660; 96365; 96372; 96375; 99291; G0378; J0456; J1644; J2930; J7050

== ENCOUNTER 2021-06-26 06:47 | Outpatient (CLI) | payer MEDICARE, SELFPAY ==
--- NOTE | 2021-06-26 07:15 | MR_ITS ---
WS: [id number] MRI LUMBAR SPINE NONCONTRAST HISTORY: M48.062 - Spinal stenosis, lumbar region with neurogenic, pain down both legs. COMPARISON: 07/31/2020 TECHNIQUE: Sagittal and axial multisequence imaging is submitted. Pedicle screw fixation from L3 to L5 with interbody fusions and laminectomy defects. L2 anterolisthesis by 5 mm. L3 anterolisthesis by 3 mm. L4 anterolisthesis by 6 mm. This spaces are n arrowed and desiccated no marrow edema or fracture. Conus terminates normally at L1. L1-L2: Normal. L2-L3: Mild annular disc bulging. Moderate sized LEFT paracentral and subarticular recess protrusion effacing the CSF and extending into the subarticular recess. Disc also extends into the foramen. Ther e is a smaller RIGHT foraminal disc protrusion. Moderate bilateral subarticular recess and foraminal stenosis, LEFT greater than RIGHT. Traversing L3 nerve roots are being encroached upon. Very similar changes were seen on the prior examination with only mild progression. L3-L4: Fusion at the L3-4 disc is new since the prior study. Posterior laminectomy defect. Sac is wid carol patent. Ligamentum flavum and has been debrided. There is slight clumping of the nerve roots in t he periphery of the thecal sac. Only mild narrowing of the subarticular recesses and foramen. L4-L5: Proximal RIGHT foraminal disc protrusion. No significant change since the prior study. There i s very slight encroachment upon the inferior surface of the exiting RIGHT L4 nerve root. L5-S1: Mild disc bulging. No focal protrusions or high-grade stenosis. MR/MR lumbar spine wo con* [id number] IMPRESSION: 1. Status post lumbar fusion from L3 to L5 with interbody spacers and large po sterior laminectomy defects. 2. Most significant stenosis at the L2-3 level. Moderate-sized LEFT paracentra l and subarticular recess disc protrusion and smaller similar protrusion in the RIGHT foramen. Resulting at least moderate stenosis of the subarticular recess es and foramina, greatest on the LEFT. Disc encroachment upon the traversing L3 nerve roots. 3. Proximal RIGHT foraminal disc protrusion at L4-5 with mild encroachment upo n the exiting L4 nerve root. 4. Mild narrowing of the subarticular recesses and foramen at L3-4.
== END 2021-06-26 06:48 | disposition home or self-care (01) ==
PROVIDERS: PCP Family Medicine Adult Medicine; Visit Provider Orthopaedic Surgery
DX: M48.062 Spinal stenosis, lumbar region with neurogenic claudication (principal); M43.26 Fusion of spine, lumbar region; M51.26 Other intervertebral disc displacement, lumbar region; R06.00 Dyspnea, unspecified; Z11.52 Encounter for screening for COVID-19
CPT/HCPCS: 71046; 72148; 83880

== ENCOUNTER → 2021-07-23 12:36 | Outpatient (BNVA) | payer MEDICARE, SELFPAY | PROVIDERS: PCP Family Medicine Adult Medicine; Visit Provider Orthopaedic Surgery | DX: M48.062 Spinal stenosis, lumbar region with neurogenic claudication (principal) | CPT/HCPCS: 72100; 99214 ==

== ENCOUNTER → 2021-07-31 10:43 | Outpatient (BNVA) | payer MEDICARE, SELFPAY | PROVIDERS: PCP Family Medicine Adult Medicine; Visit Provider Internal Medicine Cardiovascular Disease | DX: I13.0 Hypertensive heart and chronic kidney disease with heart failure and stage 1 through stage 4 chronic kidney disease, or unspecified chronic kidney disease (principal); N18.4 Chronic kidney disease, stage 4 (severe); I50.23 Acute on chronic systolic (congestive) heart failure; Z87.891 Personal history of nicotine dependence; J44.1 Chronic obstructive pulmonary disease with (acute) exacerbation; I27.21 Secondary pulmonary arterial hypertension; D63.1 Anemia in chronic kidney disease; R06.03 Acute respiratory distress; I42.0 Dilated cardiomyopathy | CPT/HCPCS: 99214 ==

== ENCOUNTER → 2021-08-05 10:48 | Outpatient (BNVA) | payer MEDICARE, SELFPAY | PROVIDERS: PCP Family Medicine Adult Medicine; Visit Provider Internal Medicine Critical Care Medicine | DX: J42 Unspecified chronic bronchitis (principal); J31.0 Chronic rhinitis; J32.9 Chronic sinusitis, unspecified; G47.33 Obstructive sleep apnea (adult) (pediatric); I42.9 Cardiomyopathy, unspecified; Z87.891 Personal history of nicotine dependence; E78.5 Hyperlipidemia, unspecified; N18.4 Chronic kidney disease, stage 4 (severe); I10 Essential (primary) hypertension; J43.9 Emphysema, unspecified | CPT/HCPCS: 99205 ==

== ENCOUNTER → 2021-08-20 09:54 | Outpatient (BNVA) | payer MEDICARE, SELFPAY | PROVIDERS: PCP Family Medicine Adult Medicine; Visit Provider Nurse Practitioner Family | DX: I96 Gangrene, not elsewhere classified (principal); L97.311 Non-pressure chronic ulcer of right ankle limited to breakdown of skin; L97.511 Non-pressure chronic ulcer of other part of right foot limited to breakdown of skin | CPT/HCPCS: 99203; 99213; A6252 ==

== ENCOUNTER → 2021-08-24 14:27 | Outpatient (BNVA) | payer MEDICARE, SELFPAY | PROVIDERS: PCP Family Medicine Adult Medicine; Visit Provider Thoracic Surgery (Cardiothoracic Vascular Surgery) | DX: L97.811 Non-pressure chronic ulcer of other part of right lower leg limited to breakdown of skin (principal); I87.2 Venous insufficiency (chronic) (peripheral) | CPT/HCPCS: 29581; A6252 ==

== ENCOUNTER → 2021-08-27 13:10 | Outpatient (BNVA) | payer MEDICARE, SELFPAY | PROVIDERS: PCP Family Medicine Adult Medicine; Visit Provider Nurse Practitioner Family | DX: Z09 Encounter for follow-up examination after completed treatment for conditions other than malignant neoplasm (principal) | CPT/HCPCS: 99212 ==

== ENCOUNTER 2021-10-02 12:34 | Inpatient (IN) | payer MEDICARE, SELFPAY ==
[2021-10-02] VITALS (18 sets, daily range): BP systolic 138–185; BP diastolic 96–126; PULSE 84–98; RESP 16–27; TEMP 36.4–36.7; O2SAT 88–100; BMI 29.9; BMI 29.8
--- NOTE | 2021-10-02 12:41 | XR_ITS ---
WS: [id number] PORTABLE CHEST HISTORY: dyspnea COMPARISON: 06/26/2021 Hyperinflated lungs. Mild elevation of the RIGHT minor fissure with pleural thickening. There is mini mal pleural thickening at the RIGHT lung base with blunting of the costophrenic angle. No focal conso lidations. No pneumothorax. Development of mild CHF since the prior study. Cardiac size: Moderately enlarged cardiac silhouette. Mediastinum/Aorta: Moderate atherosclerosis aorta. Aorta is ectatic. No osseous abnormality seen. XR/XR chest 1V portable [id number] IMPRESSION: 1. Moderate cardiomegaly has slightly progressed since the prior study. 2. Focal scarring and pleural thickening is stable in the mid RIGHT thorax adj acent to the prior rib fractures. 3. Minimal blunting RIGHT costophrenic angle and pleural thickening. 4. Development of mild CHF.
--- NOTE | 2021-10-02 12:42 | ECG_ITS ---
[facility] Test Date: 2021-10-02 Pat Name: Fredy Hammonds Department: Room: Gender: Male [employer] Architect: : [id number] Requested By: Audi Flores Order Number: [id number] Arianne MD: Wander Alvarado M.D. Measurements Intervals [place] Rate: 94 P: 55 [place]: 149 QRS: -50 QRSD: 105 T: 154 QT: 363 QTc: 455 Interpretive Statements SINUS RHYTHM LEFT AXIS DEVIATION [QRS AXIS < -30] POSSIBLE ANTERIOR MYOCARDIAL INFARCTION , OF INDETERMINATE AGE [30 ms Q WAVE IN V3/V4, OR R < 0.2 mV IN V4] MODERATE T-WAVE ABNORMALITY, CONSIDER LATERAL ISCHEMIA [-0.1+ mV T-WAVE IN I/aVL/V5/V6] Compared to ECG 06/19/2021 17:31:38 Myocardial infarct finding now present T-wave abnormality still present Possible ischemia still present Electronically Signed On 10-03-2021 12:21:11 CDT by Wander Alvarado M.D. [email or web address]
--- NOTE | 2021-10-02 12:42 | W.ED.GENADLT ---
HPI - General Adult General: Chief complaint: Shortness of Breath/Dyspnea Stated complaint: EDEMA LOWER EXT. SOB Time Seen by Provider: 10/02/21 12:36 History of Present Illness: CC: Dyspnea and lower extremity swelling HPI: This is a [66]yo patient w/ hx of CAD with stent x3, CHF, CKD previously on Lasix 40 mg presentingtoot the ED with dyspnea and increased work of breathing x 1 month in the setting of increased weight gain and lower extremity swelling. Patient tells me that he has been off of Lasix for the last month has not been regular prescription. Earlier today, patient went to Dr. Colon office and was told to come to the emergency room for worsening shortness of breath. Patient has had over 30 lbs of weight gain in the last month. Endorses of orthopnea and increased pillow usage at night. At baseline, patient takes 40mg of lasix and is followed by Dr. Alvarado from Cardiology. Denies chest pain, N/V, diaphoresis, shoulder pain pain or back pain. Patient has no fever/chill, or sputum production. No GI or other complaints. Denies any pleuritic chest pain, recent surgery/immobilization/travel, or hematemesis or hx of VTE in the past. Onset: 1 month ago Duration: ongoing for the last month Location: home Severity: mild/moderate Associated symptoms: Reports dyspnea; Deny chest pain, nausea, rash, palpitations or vomiting Review of Systems Const: Denies: fever(s) or chills Eyes: Denies: change in vision ENMT: Denies: mouth pain Card: Reports: dyspnea on exertion; Denies: chest pain or palpitations Resp: Reports: dyspnea; Denies: non-productive cough GI: Denies: abdominal pain, nausea, vomiting or diarrhea : Denies: dysuria Musc: Denies: extremity pain Skin/Breast: Denies: rash or new lesions Neuro: Denies: weakness in extremities Psych: Reports: other (Normal mood) [place]/Lymph: Denies: easy bruising PFS ED PFSH: Medical History Allergic reaction Anemia in chronic kidney disease (CKD) BPH NOS w ur obs/LUTS Cardiomyopathy CAD with stent in LAD Cellulitis CHF exacerbation Combined D/S CHF CKD (chronic kidney disease) stage 4, GFR 15-29 ml/min He will follow up with me on 03/18/2021 for his CKD and diabetic counseling. He has a routine follow-up in April. He will need to get his sutures removed on 03/18/2021. COPD exacerbation Elevated PSA Erectile dysfunction Gout attack History of pulmonary embolism Hyperlipidemia Hypersomnolence Hypertension, essential Insomnia Ischemic cardiomyopathy Left shoulder pain Mild aortic regurgitation Mild aortic stenosis 12/07/2018: Mean gradient 4.6 mmHg, aortic valve area 2.2 cm? Moderate pulmonary arterial systolic hypertension Respiratory distress Smoking Quit 2020 Stasis dermatitis of lower extremity due to chronic peripheral vascular hypertension Tear of left rotator cuff Surgical History H/O abdominal surgery hernia History of ankle surgery History of back surgery Postoperative state Family History Family/Other Cancer Mother Dementia Diabetes Sister Diabetes CAD (coronary artery disease) Father , AT AGE 78 Brain aneurysm Denies family history of Clotting disorder Hyperlipidemia Psychiatric illness Chronic kidney disease (CKD) Suicide Anesthesia complication Bleeding disorder Family history of premature coronary artery disease Lung disease Hypertension Stroke Social History Smoking and tobacco status: former smoker Quit status (tobacco): has quit using tobacco Year quit tobacco: 2020 Former quit date comment: 0.5 ppd X 15 years Alcohol intake: current Alcohol intake frequency: few times a month Marital status: Current occupational status: disabled History of recent travel: No Physical Exam Const: COMMON NORMALS: alert HENMT: COMMON NORMALS: atraumatic HEAD & SCALP: atraumatic MOUTH: moist mucous membranes not abnormal Eye: COMMON NORMALS: EOMs intact bilaterally and conjunctivae normal CONJUNCTIVA: Yes conjunctivae normal Neck/C-Spine: COMMON NORMALS: full ROM and supple Resp: COMMON NORMALS: normal respiratory effort OTHER: + Mild fine crackles diffusely in the lung guido Cardio: COMMON NORMALS: regular rate RATE: regular rate GI: COMMON NORMALS: Soft to palpation and non-tender PALPATION: Yes Soft to palpation Extremity: COMMON NORMALS: full ROM NARRATIVE EXTREMITY EXAM: 3+ lower extremity edema b/l Neuro: SENSORIUM/ORIENTATION: Yes alert MOTOR EXAM: No Abnormal motor strength present and Other motor observations present (no focal motor deficits) Psych: COMMON NORMALS: speech normal SPEECH: Yes normal speech MOOD & AFFECT: Yes euthymic mood Course Vital Signs: Vital signs: Vital Signs Pulse Rate 96 10/02/21 12:40 Respiratory Rate 18 10/02/21 12:40 Blood Pressure 172/126 10/02/21 12:40 Pulse Oximetry 97 10/02/21 12:40 MDM - General Adult Medical Decision Making [66]yo pt w/ hx of CHF, CAD w/ stents x 3, CKD presenting to the ED with dyspnea and increased work of breathing concerning acute on chronic CHF exacerbation. Physical exam consistent signs of fluid overload including crackles bilaterally and LE swelling. Workup today: ECG x 2, CBC, BMP, Troponin x2, BNP, CXR. Intervention: IV lasix after potassium check Based on history, exam and findings, presentation most consistent with acute on chronic heart failure. Low suspicion for PNA, ACS, tamponade, aortic dissection. EKG: No STEMI and no evidence of Brugada?s sign, delta wave, epsilon wave, significantly prolonged QTc, or malignant arrhythmia. Troponin mildly elevated at at 81 and BNP elevated >7K CXR: Consistent with mild CHF [1:45pm] On reassessment, patient is stable and patient is mentating without issues. On RA. Given lasix 80mg IV x 1 in the ER with significant symptom improvement in dyspnea Given the current presentation, I believe the patient would benefit from inpatient admission for continued diuresis and fluid removal. She has a new creatinine of 8.4 compared to baseline to 4-5. Case was discussed with Dr. Daniel Morrow who will follow patient. Patient is still making urine after lasix challenge. I have discussed a plan with a patient who agrees with inpatient admission. Disposition: Admission Lab Data : 10/02/21 12:49 10/02/21 12:49 Radiology Impressions Chest X-Ray 10/02/21 12:41 IMPRESSION: 1. Moderate cardiomegaly has slightly progressed since the prior study. 2. Focal scarring and pleural thickening is stable in the mid RIGHT thorax adjacent to the prior rib fractures. 3. Minimal blunting RIGHT costophrenic angle and pleural thickening. 4. Development of mild CHF. Laboratory Results WBC 9.1 10^3/uL (4.0-10.0) 10/02/21 12:49 RBC 3.57 10^6/uL (4.1-5.3) L 10/02/21 12:49 Hgb 10.2 g/dL (11.7-16.6) L 10/02/21 12:49 Hct 32.4 % (42.0-52.0) L 10/02/21 12:49 MCV 90.8 fl (80-94) 10/02/21 12:49 MCH 28.6 pg (28.0-34.0) 10/02/21 12:49 MCHC 31.5 g/dL (30.0-36.0) 10/02/21 12:49 RDW 18.6 % (12.1-15.1) H 10/02/21 12:49 Plt Count 250 10^3/cmm (130-400) 10/02/21 12:49 MPV 12.2 fL (7.4-10.4) H 10/02/21 12:49 Neut % (Auto) 79.2 % 10/02/21 12:49 Lymph % (Auto) 11.8 % 10/02/21 12:49 [place] % (Auto) 8.0 % 10/02/21 12:49 Eos % (Auto) 0.2 % 10/02/21 12:49 Baso % (Auto) 0.2 % 10/02/21 12:49 Neut # (Auto) 7.18 10^3/uL (1.8-7.7) 10/02/21 12:49 Lymph # (Auto) 1.1 10^3/uL (0.8-4.8) 10/02/21 12:49 [place] # (Auto) 0.7 10^3/uL (0.2-0.9) 10/02/21 12:49 Eos # (Auto) 0.0 10^3/uL (0.0-0.8) 10/02/21 12:49 Baso # (Auto) 0.0 10^3/uL (0.0-0.1) 10/02/21 12:49 Nucleated RBC % (auto) 0.7 % 10/02/21 12:49 Nucleated RBCs # 0.1 /100WBC 10/02/21 12:49 Sodium 134 mmol/L (136-145) L 10/02/21 12:49 Potassium 5.5 mmol/L (3.5-5.1) H 10/02/21 12:49 Chloride 105 mmol/L (98-107) 10/02/21 12:49 Carbon Dioxide 13 mmol/L (22-29) L 10/02/21 12:49 Anion Gap 21.5 (5-19) H 10/02/21 12:49 BUN 75 mg/dL (8-23) H 10/02/21 12:49 Creatinine 8.4 mg/dL (0.7-1.2) H* 10/02/21 12:49 GFR Calculation 7.8 mL/min (90-130) L 10/02/21 12:49 Glucose 111 mg/dL (65-115) 10/02/21 12:49 Calculated Osmolality 301 mOsm/kg (285-295) H 10/02/21 12:49 Calcium 6.7 mg/dL (8.5-10.5) L 10/02/21 12:49 Troponin T Baseline 82 ng/L (0-15) H 10/02/21 12:49 NT-Pro-B Natriuret Pep > 7000 pg/mL (0-125) H 10/02/21 12:49 Imaging Data Other Imaging: Radiologist's impression: [id number] [id number] XRay Report Signed Patient: Fredy Hammonds Unit #: [id number] : 1955 Age/Sex: 66 / M ADM Date: 10/02/21 Loc: ER Room/Bed: Attending Dr: Ordering Provider/Ordering MD: Audi Flores MD Date of Service: 10/02/21 Procedure(s): XR chest 1V portable [id number] Accession Number(s): [id number] Report Number: [id number] WS: [id number] PORTABLE CHEST HISTORY: dyspnea COMPARISON: 06/26/2021 Hyperinflated lungs. Mild elevation of the RIGHT minor fissure with pleural thickening. There is minimal pleural thickening at the RIGHT lung base with blunting of the costophrenic angle. No focal consolidations. No pneumothorax. Development of mild CHF since the prior study. Cardiac size: Moderately enlarged cardiac silhouette. Mediastinum/Aorta: Moderate atherosclerosis aorta. Aorta is ectatic. No osseous abnormality seen. XR/XR chest 1V portable [id number] IMPRESSION: ? 1.? Moderate cardiomegaly has slightly progressed since the prior study. 2.? Focal scarring and pleural thickening is stable in the mid RIGHT thorax adjacent to the prior rib fractures. 3.? Minimal blunting RIGHT costophrenic angle and pleural thickening. 4.? Development of mild CHF. ? ? ? Dictated By: Reyna Victoria DO Signed By: Reyna Victoria DO Signed Date/Time: 10/02/21 1257 DD/ 1254 Discharge Plan Discharge Patient Disposition: Admitted As Inpatient Clinical Impression: Volume overload, CHF exacerbation, Acute kidney injury superimposed on CKD Condition: Stable Coding Level of Care Code ED Alteration Tailor for Ramana Fwd Exam Comprehensive
[2021-10-02 12:52] LABS: Basophils % 0.2 %; Eosinophils % 0.2 %; Hematocrit 32.4 % (42.0-52.0); Hemoglobin 10.2 g/dL (11.7-16.6); Lymphocytes # 1.1 10^3/uL (0.8-4.8); Lymphocytes % 11.8 %; Mean Corpuscular HGB Conc 31.5 g/dL (30.0-36.0); Mean Corpuscular Hemoglobin 28.6 pg (28.0-34.0); Mean Corpuscular Volume 90.8 fl (80-94); Mean Platelet Volume 12.2 fL (7.4-10.4); Monocytes # 0.7 10^3/uL (0.2-0.9); Neutrophils # 7.18 10^3/uL (1.8-7.7); Neutrophils % 79.2 %; Nucleated Red Blood Cells # 0.1 /100WBC; Nucleated Red Blood Cells % 0.7 %; Platelet Count 250 10^3/cmm (130-400); Red Blood Count 3.57 10^6/uL (4.1-5.3); Red Cell Distribution Width 18.6 % (12.1-15.1); White Blood Count 9.1 10^3/uL (4.0-10.0)
[2021-10-02 13:18] LABS: Troponin(5th) Baseline 82 ng/L (0-15)
[2021-10-02 13:19] LABS: Anion Gap 21.5 (5-19); Blood Urea Nitrogen 75 mg/dL (8-23); Calcium 6.7 mg/dL (8.5-10.5); Carbon Dioxide 13 mmol/L (22-29); Chloride 105 mmol/L (98-107); Glomerular Filtration Rate 7.8 mL/min (90-130); Glucose 111 mg/dL (65-115); Osmolality Calculated 301 mOsm/kg (285-295); Potassium 5.5 mmol/L (3.5-5.1); Sodium 134 mmol/L (136-145)
[2021-10-02] MEDS: FUROsemide 10 mg/mL SDV 10mL 80 MG IVP ×2 (13:29→17:35)
--- NOTE | 2021-10-02 14:05 | USCV_ITS ---
Fredy Hammonds Age: 66 Gender: M : 1955 Exam Date: 10/02/2021 14:44 Ordering Phys: Anatoly Saunders MD Technologist: Yazmin Caputo [place] [facility] [place]: SOB BP: / HR: 97 Rhythm: Sinus Technical Quality: Adequate MEASUREMENTS (Male / Female) Normal Values 2D ECHO LV Diastolic Diameter PLAX 5.5 cm 4.2 - 5.9 / 3.9 - 5.3 cm LV Systolic Diameter PLAX 4.5 cm LV Chamber Size 5.5 cm IVS Diastolic Thickness 1.3 cm 0.6 - 1.0 / 0.6 - 0.9 cm IVS Systolic Thickness 1.5 cm LVPW Diastolic Thickness 1.3 cm 0.6 - 1.0 / 0.6 - 0.9 cm LVPW Systolic Thickness 2.1 cm RV Chamber Size 4.0 cm LVOT Diameter 2.1 cm LV Ejection Fraction 2D Teich 37.6 % LV Ejection Fraction MOD 2C 7.6 % LV Ejection Fraction 2C AL 8.4 % LA Diameter 4.6 cm LA Width 3.3 cm LA Height 5.2 cm RA Width 4.0 cm RA Height 4.9 cm Aorta at Sinotubular Diameter 3.7 cm IVC Diameter 2.4 cm M-MODE Aortic Annulus Diameter 3.0 cm LA Ao Ratio MM 1.6 MV E Point Septal Separation 2.1 cm DOPPLER AV Peak Velocity 125.0 cm/s LVOT Peak Velocity 78.0 cm/s AV Area Cont Eq vti 3.0 cm squared AV Area Cont Eq pk 2.1 cm squared MV Area PHT 3.5 cm squared Mitral E to A Ratio 1.3 MV E' Velocity 53.5 cm/s Mitral E to MV E' Ratio 17.2 Mitral E to LV E' Lateral Ratio 13.7 Mitral E to LV E' Septal Ratio 23.3 TR Peak Velocity 331.8 cm/s TR Peak Gradient 44.0 mmHg TR Mean Velocity 222.2 cm/s TR Mean Gradient 24.1 mmHg TR Velocity Time Integral 98.3 cm TV Peak E Velocity 71.0 cm/s Right Atrial Pressure 15.0 mmHg Pulmonary Artery Systolic Pressu 59.0 mmHg PV Peak Velocity 58.0 cm/s RV Acceleration Time 0.1 s RV Ejection Time 0.3 s RV AcT/ET 0.3 FINDINGS Left Ventricle Severely increased left ventricular cavity size. Normal left ventricular wall thickness. Severely decreased left ventricular systolic function. Left ventricular ejection fraction is estimated at 20 %. Grade III/IV diastolic dysfunction (restrictive filling pattern), severely elevated filling pressures. Global left ventricular hypokinesis. Right Ventricle Normal right ventricular size. Moderately decreased right ventricular systolic function. Moderate pulmonary hypertension, RVSP 59 mmHg. Right Atrium Mildly increased right atrial size. Left Atrium Mildly increased left atrial size. Mitral Valve Structurally normal mitral valve. Mild mitral valve regurgitation. Aortic Valve Structurally normal trileaflet aortic valve. No aortic valve stenosis. [id number] aortic valve regurgitation. Tricuspid Valve Structurally normal tricuspid valve. Moderate tricuspid valve regurgitation. Pulmonic Valve Pulmonic valve not well visualized. Mild pulmonary valve regurgitation. Pericardium Normal pericardium without effusion. Aorta Normal ascending aorta dimension. IVC Inferior vena cava not visualized. CONCLUSIONS Severely increased left ventricular cavity size. Normal left ventricular wall thickness. Severely decreased left ventricular systolic function. Left ventricular ejection fraction is estimated at 20 %. Grade III/IV diastolic dysfunction (restrictive filling pattern), severely elevated filling pressures. Global left ventricular hypokinesis. Normal right ventricular size. Moderately decreased right ventricular systolic function. Moderate pulmonary hypertension, RVSP 59 mmHg. Mildly increased right atrial size. Mildly increased left atrial size. Structurally normal mitral valve. Mild mitral valve regurgitation. Structurally normal trileaflet aortic valve. No aortic valve stenosis. [id number] aortic valve regurgitation. Dr. Wander Alvarado MD (Electronically Signed) Final Date: 02 October 2021 15:37 S
--- NOTE | 2021-10-02 14:05 | ECG_ITS ---
[facility] Test Date: 2021-10-02 Pat Name: Fredy Hammonds Department: Room: Gender: Male Associate Programmer: : 1955 Requested By: Anatoly Saunders Order Number: [id number] Arianne MD: Wander Alvarado M.D. Measurements Intervals [place] Rate: 99 P: 65 [place]: 166 QRS: -51 QRSD: 104 T: 152 QT: 357 QTc: 459 Interpretive Statements SINUS RHYTHM LEFT AXIS DEVIATION [QRS AXIS < -30] POSSIBLE ANTERIOR MYOCARDIAL INFARCTION , OF INDETERMINATE AGE [30 ms Q WAVE IN V3/V4, OR R < 0.2 mV IN V4] MODERATE T-WAVE ABNORMALITY, CONSIDER LATERAL ISCHEMIA [-0.1+ mV T-WAVE IN I/aVL/V5/V6] Compared to ECG 10/02/2021 12:50:15 No significant changes Electronically Signed On 10-03-2021 12:22:02 CDT by Wander Alvarado M.D. [id number]
--- NOTE | 2021-10-02 14:05 | USR_ITS ---
PROCEDURE INFORMATION: Exam: US Duplex Lower Extremity Veins, Bilateral Exam date and time: 10/02/2021 2:22 PM Age: 66 years old Clinical indication: Swelling (edema) of limb; Lower extremity, bilateral; Additional info: Dvt TECHNIQUE: Imaging protocol: Real-time Duplex ultrasound of the bilateral extremities with 2-D pedraza scale, color Doppler flow and spectral waveform analysis with image documentation. Complete exam focused on the bilateral lower extremity veins. COMPARISON: US renal BI* [id number] 06/18/2020 6:49 AM FINDINGS: Right deep veins: The common femoral, femoral, popliteal, and calf veins are patent without thrombus. Right superficial veins: Saphenofemoral junction is patent without thrombus. Left deep veins: The common femoral, femoral, popliteal, and calf veins are patent without thrombus. Left superficial veins: Saphenofemoral junction is patent without thrombus. Soft tissues: Unremarkable. US/[place] [id number] IMPRESSION: No evidence of deep vein thrombosis.
--- NOTE | 2021-10-02 14:06 | CTR_ITS ---
PROCEDURE INFORMATION: Exam: CT Chest Without Contrast; Diagnostic Exam date and time: 10/02/2021 4:01 PM Age: 66 years old Clinical indication: Pain; Shortness of breath and wheezing; On breathing; Prior surgery; Surgery date: 6+ months; Surgery type: Cardiac stents; Additional info: SOB TECHNIQUE: Imaging protocol: Diagnostic computed tomography of the chest without contrast. Radiation optimization: All CT scans at this facility use at least one of these dose optimization techniques: automated exposure control; mA and/or kV adjustment per patient size (includes targeted exams where dose is matched to clinical indication); or iterative reconstruction. COMPARISON: CT angio chest PE protcl [id number] 04/13/2019 2:05 AM RADIATION DOSE METRICS: Total DLP (mGy-cm): 835.74 FINDINGS: Lungs: Minimal pulmonary emphysema. Minimal central peribronchial thickening with no significant bronchiectasis. Scattered tiny linear atelectasis-scarring in the mid and lower lung zones. No dense consolidation or ground-glass opacity. Slight flattening of diaphragms suggesting hyperinflation. Pleural spaces: New small right and trace left pleural effusions. Heart: Mild cardiomegaly with coronary calcifications and coronary stents. Somewhat increased myocardial conspicuity may be related to anemia. Clinical correlation is needed. Again seen is slightly dilated intrahepatic IVC and central hepatic veins suggesting right cardiac/tricuspid dysfunction/passive congestion. Lymph nodes: A few borderline sized mediastinal hilar lymph nodes are again noted, without significant change, measuring up to 12 mm in the AP window region, nonspecific. Hilar soft tissue and duc assessment is otherwise limited due to lack of contrast. Vasculature: Minimal prominence of ascending aorta at 4.1 cm, unchanged. Mild dilatation of main pulmonary artery at 3.4 cm, slightly increased versus prior exam at 3 cm. Clinical correlation for pulmonary hypertension should be considered. Gallbladder and bile ducts: Cholelithiasis. Kidneys and ureters: Partially visualized hypodense right renal lesion, likely simple cyst measuring about 2.2 cm. Right upper pole renal calcifications measuring 3 mm may represent arterial calcification or nonobstructing calculus. Intraperitoneal space: Small amount of perihepatic ascites in the partially visualized upper abdomen. Bones/joints: No acute findings. Old healed right rib fractures. Soft tissues: See Lymph nodes finding. CT/CT chest wo [facility] [id number] IMPRESSION: 1. Comparison contrast-enhanced CT 04/13/2019. 2. Minimal pulmonary emphysema. Slight interval progression of minimal central peribronchial thickening without bronchiectasis. Otherwise no acute lung consolidation or ground-glass opacity. Scattered areas of linear scarring-atelectasis bilaterally. Mild pulmonary hyperinflation/COPD-mild chronic bronchitis probably present. 3. New small bilateral pleural effusions. 4. Coronary calcifications and other cardiovascular findings as above. 5. Slightly prominent ascending aorta and main pulmonary artery. See discussion above. 6. Small amount of perihepatic ascites and incidental right renal findings as above. COMMENTS: Consistent with the [employer]'s Incidental Findings Committee white paper (J Am Zonia Radiol 2018): Any incidental renal lesion less than 1 cm or classified as too small to characterize, or any incidental cystic renal lesion characterized as simple-appearing, is likely benign. No follow-up imaging is recommended for these lesions per consensus recommendations based on imaging criteria.
--- NOTE | 2021-10-02 14:37 | PC.PHAR ---
pt states he is out of all of his medications
--- NOTE | 2021-10-02 15:01 | P.HP_ITS ---
Providers/Chief Complaint Primary Care Provider: Kian Colon MD Chief Complaint: EDEMA LOWER EXT. SOB History of Present Illness Fredy Hammonds is a 66 year old male with a past medical history of CKD stage IV, history of CAD, history of combined systolic diastolic CHF, moderate pulmonary pretension, history of obstructive sleep apnea, not on CPAP, COPD, mild aortic stenosis who presents [facility] due to shortness of breath and bilateral extreme edema. Patient tells me that he lives in [place], he lives by himself, he ambulates with a cane, recently has been increasing increased shortness of breath at rest with exertion, no fevers, no cough, he quit smoking a long time ago, he is also developed bilateral extremity edema. He tells me that his transitional care manager is Dr. Solomon and its been sometime since she saw her, he also sees Dr. Hightower. In the emergency room patient was found to have bilateral lower extremity edema, 4+, with acute hypoxic respiratory failure, requiring 3 to 4 L nasal cannula, BNP over 7000, creatinine over 8. He has been given Lasix, patient has been declining dialysis. I asked patient what his reservations were about dialysis, he asked me that the dialysis catheter worrisome, he tells me if it is an extensive procedure to place in the dialysis catheter, he has any significant complications, he asked me if there is any significant weight loss, with dialysis, if if it is lifelong, he tells me he does not want to be hooked up to machines for the rest of his life. I advised him that currently he is in stage V kidney failure, we can see if his kidneys will respond to Lasix, he does urinate, we can certainly try Bumex, however if he does not produce urine, he does not diurese well, then certainly we would have to try dialysis to help with his fluid overload. I was able to answer his questions, I advised him that dialysis for him would likely be permanent, because his chronic kidney disease stage IV, but he does have evidence of fluid overload, it could be temporally use to help with his fluid overload. In terms of his weight loss, fatigue, certainly when he will undergo dialysis, his body is not used to dialysis, there is fluid shifts, so he might lose weight but that might be fluid, certainly could have constitutional symptoms. I advised that in the short-term here in the hospital his dialysis might be short-term, but he likely will need long-term dialysis at some point, that would be dialysis Tuesday. He is a bit more understandable, and would consider dialysis, but would like us to try all other means before considering it. He says for now he does not want dialysis, but after all other medical interventions he would think about it and possibly consider it. Review of Systems Const: Denies: fever(s), chills, fatigue or malaise Eyes: Denies: change in vision ENMT: Denies: nasal congestion Card: Reports: edema, dyspnea on exertion and orthopnea; Denies: chest pain or palpitations Resp: Reports: dyspnea; Denies: productive cough, non-productive cough or wheezing GI: Denies: abdominal pain, nausea, vomiting, hematemesis or diarrhea : Denies: dysuria Musc: Reports: extremity swelling; Denies: back pain Skin/Breast: Denies: rash Neuro: Denies: headache(s) Endo: Denies: polyuria or polydipsia Medications/Allergies Home Medications Medication Instructions Recorded Confirmed Last Taken Type nitroglycerin 0.4 mg sublingual 0.4 mg SUBLINGUAL Q5M PRN #25 tab 06/17/20 10/02/21 Unknown Rx tablet (Nitrostat) amlodipine 10 mg tablet 10 mg PO DAILY #90 tab 06/26/20 10/02/21 01/29/21 Rx Cane #1 ea 10/03/20 10/02/21 Unknown Rx trazodone 50 mg tablet 25 mg PO DAILY #30 tab 01/26/21 10/02/21 01/28/21 Rx sildenafil 100 mg tablet 50 mg PO DAILY PRN #30 tab 04/01/21 10/02/21 Unknown Rx furosemide 40 mg tablet 40 mg PO DAILY PRN #90 tab 05/13/21 10/02/21 Unknown Rx sodium bicarbonate 650 mg tablet 650 mg PO TID #90 tab 06/20/21 10/02/21 Unknown Rx hydralazine 25 mg tablet 25 mg PO TID #90 tab 07/02/21 10/02/21 Unknown Rx carvedilol 25 mg tablet 25 mg PO BID tab 07/31/21 10/02/21 Unknown History fluticasone propionate 50 1 spray INTRANASAL BID 30 Days #16 08/05/21 10/02/21 Unknown Rx mcg/actuation nasal g spray,suspension (Flonase Allergy Relief) ipratropium 20 mcg-albuterol 100 1 puff INHALATION Q4H PRN 30 Days 08/05/21 10/02/21 Unknown Rx mcg/actuation mist for inhalation #4 g (Combivent Respimat) umeclidinium 62.5 mcg-vilanterol 1 inh INHALATION DAILY 60 Days #60 08/07/21 10/02/21 Unknown Rx 25 mcg/actuation powdr for ea inhalation (Anoro Ellipta) colchicine 0.6 mg tablet 0.6 mg PO DAILY #14 tab 09/09/21 10/02/21 Unknown Rx triamcinolone acetonide 0.5 % 1 applic TOPICAL DAILY #15 g 09/09/21 10/02/21 Unknown Rx topical cream albuterol sulfate 2.5 mg INHALATION QID PRN 10/02/21 10/02/21 Unknown History clopidogrel 75 mg tablet 75 mg PO DAILY 10/02/21 10/02/21 Unknown History Allergies Allergy/AdvReac Type Severity Reaction Status Date / Time No Known Allergies Allergy Verified 10/02/21 11:44 PFSH Acute PFSH: Medical History Allergic reaction Anemia in chronic kidney disease (CKD) BPH NOS w ur obs/LUTS Cardiomyopathy CAD with stent in LAD Cellulitis CHF exacerbation Combined D/S CHF CKD (chronic kidney disease) stage 4, GFR 15-29 ml/min He will follow up with me on 03/18/2021 for his CKD and diabetic counseling. He has a routine follow-up in April. He will need to get his sutures removed on 03/18/2021. COPD exacerbation Elevated PSA Erectile dysfunction Gout attack History of pulmonary embolism Hyperlipidemia Hypersomnolence Hypertension, essential Insomnia Ischemic cardiomyopathy Left shoulder pain Mild aortic regurgitation Mild aortic stenosis 12/07/2018: Mean gradient 4.6 mmHg, aortic valve area 2.2 cm? Moderate pulmonary arterial systolic hypertension Respiratory distress Smoking Quit 2020 Stasis dermatitis of lower extremity due to chronic peripheral vascular hype rtension Tear of left rotator cuff Surgical History H/O abdominal surgery hernia History of ankle surgery History of back surgery Postoperative state Family History Family/Other Cancer Mother Dementia Diabetes Sister Diabetes CAD (coronary artery disease) Father , AT AGE 78 Brain aneurysm Denies family history of Clotting disorder Hyperlipidemia Psychiatric illness Chronic kidney disease (CKD) Suicide Anesthesia complication Bleeding disorder Family history of premature coronary artery disease Lung disease Hypertension Stroke Social History Smoking and tobacco status: former smoker Quit status (tobacco): has quit using tobacco Year quit tobacco: 2020 Former quit date comment: 0.5 ppd X 15 years Alcohol intake: current Alcohol intake frequency: few times a month Marital status: Current occupational status: disabled History of recent travel: No Vitals/I&O/Wt Last Vital Signs Pulse 96 10/02/21 12:40 Resp 18 10/02/21 12:40 BP 172/126 10/02/21 12:40 Pulse Ox 97 10/02/21 12:40 Weight last 48 hrs Weight 89.358 kg Physical Exam Const: COMMON NORMALS: no acute distress and patient oriented x3 HENMT: COMMON NORMALS: normocephalic HEAD & SCALP: normocephalic Eye: COMMON NORMALS: Equal, round and reactive pupils present and EOMs intact bilaterally Neck/C-Spine: COMMON NORMALS: no JVD Resp: COMMON NORMALS: normal respiratory effort, No retractions, No use of accessory muscles and clear to auscultation bilaterally AUSCULTATION: crackles Cardio: COMMON NORMALS: no JVD, regular rate, regular rhythm, S1 normal heart sound present and S2 normal heart sound present RATE: regular rate RHYTHM: regular rhythm HEART SOUNDS: S1 normal heart sound present and S2 normal heart sound present GI: COMMON NORMALS: Normal to inspection, nondistended, normoactive bowel sounds present, Soft to palpation, non-tender, No hepatosplenomegaly present, no masses and no bruits PALPATION: Yes Soft to palpation and Yes No hepatosplenomegaly present Extremity: NARRATIVE EXTREMITY EXAM: 4+ pitting edema bilateral lower extremity Neuro: COMMON NORMALS: patient oriented x3, CN's II-XII intact bilaterally, moves all extremities and no focal motor deficits Psych: COMMON NORMALS: mental status grossly normal Data : 10/02/21 12:49 10/02/21 12:49 A&P Assessment and plan (1) Volume overload: Status: Acute (2) CHF exacerbation: Status: Acute (3) Acute kidney injury superimposed on CKD: Status: Acute (4) CKD (chronic kidney disease) stage 4, GFR 15-29 ml/min: Status: Acute (5) Hypertension, essential: Status: Acute (6) Acute respiratory failure with hypoxia: Status: Acute Plan Acute hypoxic respiratory failure, bilateral extremity edema, fluid overload -Secondary to systolic and diastolic CHF -Also has evidence of acute on chronic renal failure Plan -Admit to ICU -Has received Lasix -Give Bumex, with metolazone, will consider Lasix drip -Order cardiac echocardiogram, monitor EF might require dobutamine drip -Venous ultrasound for DVT -Pro-Vikas, CRP, CT of the chest -Monitor urine output, monitor creatinine, Place Baig catheter -Blood pressure control, remains hypertensive -In discussion with patient, -Full code -Heparin for DVT prophylaxis -For now I will hold his Plavix, due to possibility of dialysis catheter placement NSTEMI -Statin -Aspirin 81 mg -Coreg -Cardiac echo Hypertensive urgency, blood pressure 172/126 -Continue Coreg, hydralazine, clonidine BPH Obstructive sleep apnea, CPAP Attestations Medical Necessity Statement*: Patient requires hospitalization for acute hypoxic respiratory failure, bilateral from edema, fluid overload, hypertensive urgency, inpatient COVID and 2 minutes Coding Level of Care Code 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
--- NOTE | 2021-10-02 15:41 | PM.CONSULT ---
Providers/Reason For Consult Consulting Physician/Specialty*: Nephro Reason for Consult*: ALBERTO on CKD Primary Care Provider: Kian Colon MD History of Present Illness History of Present Illness Thank for consultation, today the pleasure reviewing his very pleasant 66-year-old -[place] male for evaluation of acute on chronic kidney disease. Roughly 1 month ago he ran out of medication and did not have his refills and hence has been out of his diuretics. He now presents with significant increase in exertional dyspnea and also dyspnea at rest. He is gained roughly 30-40 pounds of body weight. Has significant lower extremity edema. On arrival, found to have creatinine at 8 mg/dL, equating to eGFR 8 mL/min, baseline appears to be 5.4 mg/dL equating to eGFR 13 mL/min is seen back in June of this year. Known to have systolic heart failure with ejection fraction of 15%. He saw Dr. Hightower sometime ago, not recent. No preparation for renal replacement therapy at this time. No desire for dialysis, however, when I approached him that if it was a question between life and he would choose dialysis. No other new nephrotoxic exposures. He denies bladder outflow obstructive symptoms. Urine is clear, nonbloody or cloudy. Blood pressure on arrival 172/126. Medications/Allergies Home Medications Medication Instructions Recorded Confirmed Last Taken Type nitroglycerin 0.4 mg sublingual 0.4 mg SUBLINGUAL Q5M PRN #25 tab 06/17/20 10/02/21 Unknown Rx tablet (Nitrostat) amlodipine 10 mg tablet 10 mg PO DAILY #90 tab 06/26/20 10/02/21 01/29/21 Rx Cane #1 ea 10/03/20 10/02/21 Unknown Rx trazodone 50 mg tablet 25 mg PO DAILY #30 tab 01/26/21 10/02/21 01/28/21 Rx sildenafil 100 mg tablet 50 mg PO DAILY PRN #30 tab 04/01/21 10/02/21 Unknown Rx furosemide 40 mg tablet 40 mg PO DAILY PRN #90 tab 05/13/21 10/02/21 Unknown Rx sodium bicarbonate 650 mg tablet 650 mg PO TID #90 tab 06/20/21 10/02/21 Unknown Rx hydralazine 25 mg tablet 25 mg PO TID #90 tab 07/02/21 10/02/21 Unknown Rx carvedilol 25 mg tablet 25 mg PO BID tab 07/31/21 10/02/21 Unknown History fluticasone propionate 50 1 spray INTRANASAL BID 30 Days #16 08/05/21 10/02/21 Unknown Rx mcg/actuation nasal g spray,suspension (Flonase Allergy Relief) ipratropium 20 mcg-albuterol 100 1 puff INHALATION Q4H PRN 30 Days 08/05/21 10/02/21 Unknown Rx mcg/actuation mist for inhalation #4 g (Combivent Respimat) umeclidinium 62.5 mcg-vilanterol 1 inh INHALATION DAILY 60 Days #60 08/07/21 10/02/21 Unknown Rx 25 mcg/actuation powdr for ea inhalation (Anoro Ellipta) colchicine 0.6 mg tablet 0.6 mg PO DAILY #14 tab 09/09/21 10/02/21 Unknown Rx triamcinolone acetonide 0.5 % 1 applic TOPICAL DAILY #15 g 09/09/21 10/02/21 Unknown Rx topical cream albuterol sulfate 2.5 mg INHALATION QID PRN 10/02/21 10/02/21 Unknown History clopidogrel 75 mg tablet 75 mg PO DAILY 10/02/21 10/02/21 Unknown History Allergies Allergy/AdvReac Type Severity Reaction Status Date / Time No Known Allergies Allergy Verified 10/02/21 11:44 PFSH Acute PFSH: Medical History Allergic reaction Anemia in chronic kidney disease (CKD) BPH NOS w ur obs/LUTS Cardiomyopathy CAD with stent in LAD Cellulitis CHF exacerbation Combined D/S CHF CKD (chronic kidney disease) stage 4, GFR 15-29 ml/min He will follow up with me on 03/18/2021 for his CKD and diabetic counseling. He has a routine follow-up in April. He will need to get his sutures removed on 03/18/2021. COPD exacerbation Elevated PSA Erectile dysfunction Gout attack History of pulmonary embolism Hyperlipidemia Hypersomnolence Hypertension, essential Insomnia Ischemic cardiomyopathy Left shoulder pain Mild aortic regurgitation Mild aortic stenosis 12/07/2018: Mean gradient 4.6 mmHg, aortic valve area 2.2 cm? Moderate pulmonary arterial systolic hypertension Respiratory distress Smoking Quit 2020 Stasis dermatitis of lower extremity due to chronic peripheral vascular hypertension Tear of left rotator cuff Surgical History H/O abdominal surgery hernia History of ankle surgery History of back surgery Postoperative state Family History Family/Other Cancer Mother Dementia Diabetes Sister Diabetes CAD (coronary artery disease) Father , AT AGE 78 Brain aneurysm Denies family history of Clotting disorder Hyperlipidemia Psychiatric illness Chronic kidney disease (CKD) Suicide Anesthesia complication Bleeding disorder Family history of premature coronary artery disease Lung disease Hypertension Stroke Social History Smoking and tobacco status: former smoker Quit status (tobacco): has quit using tobacco Year quit tobacco: 2020 Former quit date comment: 0.5 ppd X 15 years Alcohol intake: current Alcohol intake frequency: few times a month Marital status: Current occupational status: disabled History of recent travel: No Vitals/I&O/Wt Last Vital Signs Pulse 96 10/02/21 12:40 Resp 18 10/02/21 12:40 BP 172/126 10/02/21 12:40 Pulse Ox 97 10/02/21 12:40 Weight last 48 hrs Weight 89.358 kg Physical Exam Narrative: Constitutional: Awake, comfortable HEENT: Wet mucosa, no jvp, non icteric Lungs: Bilaterally basal rales CVS: S1 S2, no murmurs Abdo: Soft, BS ok Ext 4: 2-3+ edema, peripheral perfusion with no cyanosis Neurological: Grossly non-focal Data : 10/02/21 12:49 10/02/21 12:49 A&P Assessment and plan (1) CKD (chronic kidney disease) stage 4, GFR 15-29 ml/min: Status: Acute Plan 1. Acute on chronic renal failure. It appears that he has significant chronic kidney disease with baseline creatinine of 5.4 mg/dL as seen in June equating to eGFR 13 mL/min. Hopefully there is an acute component i.e. cardiorenal syndrome that is potentially reversible back to this prior point. Will proceed with high-dose diuretics Lasix 80 mg IV 3 times daily as well as metolazone 5 mg twice daily. I discussed with him the potential need for hemodialysis if he fails to respond to this type of therapy, in which case he would be willing to have dialysis as he is not quite ready for hospice. Limited work-up to include renal sonogram, urine protein level, urine sodium, urine creatinine, uric acid, CPK, TSH. Strict I's and O's Dose medication for GFR less than 15 Avoid usual's 2. Hypertension Secondary to hypervolemia Hopefully this combination of diuretics will be effective and will bring down his blood pressure. Would avoid FARSHAD inhibitor/ARB for the time being. Cardiology to input as well. 3. Chemistry Relatively minor noncritical aberration includes hyperkalemia, acidosis. Defer alkalinization as we wish to defer sodium loading, which should improve if diuretics are effective secondary to progressive metabolic alkalosis from contraction alkalosis. Phone call placed per his request to Jeannette his daughter at [phone]. Message left Thank you for consultation, it is a pleasure to follow these cases with you Exam and interview performed with aid of bedside RN using telemedicine Time spent 20 min inc > 50% of time in face to face counseling Daniel Wadsworth MD [facility] [phone] Coding Level of Care Code Acute Aerospace Medicine Physician for Chg Fwd Diagnoses CKD (chronic kidney disease) stage 4, GFR 15-29 ml/min N18.4
--- NOTE | 2021-10-02 15:47 | US_ITS ---
WS: [id number] RENAL ULTRASOUND HISTORY: renal failure COMPARISON: 06/18/2020 TECHNIQUE: 2-D and color Doppler imaging of the kidney submitted. Right kidney: 9.8 cm x 5.4 cm x 4.7 cm. Mild atrophy of the kidney. Severe increased echogenicity with complete loss of corticomedullary junc tion. Small bilateral acquired cysts. The largest cyst in the mid kidney measures 2.0 x 2.3 x 2.0 cm. Left kidney: 7.1 cm x 3.1 cm x 3.5 cm. Moderate atrophy with severe increased echogenicity. No hydronephrosis. Aorta: Normal. Urinary Bladder: Normal distention. Small amount of ascites. US/US renal BI* [id number] IMPRESSION: 1. Severe bilateral medical renal disease. No hydronephrosis identified. 2. RIGHT renal cortical cysts. 3. Urinary bladder is distended.
[2021-10-02 15:57] LABS: ABG PCO2 25.5 mmHg (35-45); ABG PH Result 7.32 (7.35-7.45); Base Excess ABG -11.7 mmol/L (-2.0-2.0); Blood Gas Allen Test Pos; Blood Gas Sample Site Radial, right; Blood Gas Sample Type Arterial; Oxygen Device NC
[2021-10-02] MEDS: FUROsemide 40 mg Tablet 80 MG PO (16:12)
[2021-10-02] MEDS: metOLazone 5 MG Tablet PO ×2 (16:12→17:35)
--- NOTE | 2021-10-02 16:21 | PM.CONSULT ---
Providers/Reason For Consult Consulting Physician/Specialty*: Cardio vascular medicine Reason for Consult*: Volume overload, congestive heart failure, left ventricular dysfunction Requesting Physician: Alyse Attending Physician: Anatoly Saunders MD Primary Care Provider: Kian Colon MD History of Present Illness History of Present Illness Fredy Hammonds is a 66 year old male whom I know from multiple previous visits to this institution. He is chronically unwell. I actually saw him in the office a few weeks ago when he was put in as an urgent visit. He is noncompliant with his medications and has a number of longstanding medical problems which have now come together to cause him some great difficulty. He has chronic kidney disease with a creatinine of around 5. He has a cardiomyopathy and is allegedly known to have coronary artery disease. His last sestamibi exam was in June of last year which showed no ischemia. His last echo showed an ejection fraction of 55%. He has a tremendous number of other medical problems that are listed. Those include an ischemic and hypertensive cardiomyopathy, COPD, longstanding smoking, uncontrolled hypertension, mild valvular heart disease, mild to moderate pulmonary hypertension and sleep apnea. He has not been taking his medications for about 6 weeks. He states he simply cannot get them. He has put on 40 pounds of water weight. His lower extremities have begun to swell. He has become so short of breath he cannot lie flat or even at an angle without being short of breath. He arrived to the emergency room with a blood pressure 190/120 and oxygen saturations below 90% on room air. His creatinine is 8 as is his glomerular filtration rate. His BUN is 75. His hemoglobin is 10 and his BNP is greater than 7000. A repeat echo reveals an ejection fraction of now 20% with global hypokinesis, mild to moderate aortic insufficiency and mild mitral regurgitation. The ejection fraction today is a significant reduction from his previous ejection fraction. He is been seen by the hospitalist as well as nephrology. A discussion regarding dialysis with nephrology led to him wanting to hold off on dialysis if at all possible. He does also understand however that should he need dialysis and chooses not to except that method of treatment, it would result in his . I have been asked to see him to try to help manage his cardiomyopathy and heart failure. Nephrology has suggested Lasix 80 mg 3 times daily with supplemental metolazone. Review of Systems Narrative: He complains of weight gain. He is short of breath and cannot lie flat. Medications/Allergies Home Medications Medication Instructions Recorded Confirmed Last Taken Type nitroglycerin 0.4 mg sublingual 0.4 mg SUBLINGUAL Q5M PRN #25 tab 06/17/20 10/02/21 Unknown Rx tablet (Nitrostat) amlodipine 10 mg tablet 10 mg PO DAILY #90 tab 06/26/20 10/02/21 01/29/21 Rx Cane #1 ea 10/03/20 10/02/21 Unknown Rx trazodone 50 mg tablet 25 mg PO DAILY #30 tab 01/26/21 10/02/21 01/28/21 Rx sildenafil 100 mg tablet 50 mg PO DAILY PRN #30 tab 04/01/21 10/02/21 Unknown Rx furosemide 40 mg tablet 40 mg PO DAILY PRN #90 tab 05/13/21 10/02/21 Unknown Rx sodium bicarbonate 650 mg tablet 650 mg PO TID #90 tab 06/20/21 10/02/21 Unknown Rx hydralazine 25 mg tablet 25 mg PO TID #90 tab 07/02/21 10/02/21 Unknown Rx carvedilol 25 mg tablet 25 mg PO BID tab 07/31/21 10/02/21 Unknown History fluticasone propionate 50 1 spray INTRANASAL BID 30 Days #16 08/05/21 10/02/21 Unknown Rx mcg/actuation nasal g spray,suspension (Flonase Allergy Relief) ipratropium 20 mcg-albuterol 100 1 puff INHALATION Q4H PRN 30 Days 08/05/21 10/02/21 Unknown Rx mcg/actuation mist for inhalation #4 g (Combivent Respimat) umeclidinium 62.5 mcg-vilanterol 1 inh INHALATION DAILY 60 Days #60 08/07/21 10/02/21 Unknown Rx 25 mcg/actuation powdr for ea inhalation (Anoro Ellipta) colchicine 0.6 mg tablet 0.6 mg PO DAILY #14 tab 09/09/21 10/02/21 Unknown Rx triamcinolone acetonide 0.5 % 1 applic TOPICAL DAILY #15 g 09/09/21 10/02/21 Unknown Rx topical cream albuterol sulfate 2.5 mg INHALATION QID PRN 10/02/21 10/02/21 Unknown History clopidogrel 75 mg tablet 75 mg PO DAILY 10/02/21 10/02/21 Unknown History Allergies Allergy/AdvReac Type Severity Reaction Status Date / Time No Known Allergies Allergy Verified 10/02/21 11:44 Current Medications Generic Name Dose Route Start Last Admin Trade Name Codey PRN Reason Stop Dose Admin Furosemide 80 mg 10/02/21 15:50 10/02/21 16:12 Furosemide 40 Mg Tablet PO 80 mg TID VENUS Administration Metolazone 5 mg 10/02/21 15:50 10/02/21 16:12 Metolazone 5 Mg Tablet PO 5 mg BID VENUS Administration PFSH Acute PFSH: Medical History (Updated 10/02/21 @ 16:32 by Wander Alvarado MD) Allergic reaction Anemia in chronic kidney disease (CKD) BPH NOS w ur obs/LUTS Cardiomyopathy CAD with stent in LAD Cellulitis CHF exacerbation Combined D/S CHF CKD (chronic kidney disease) stage 4, GFR 15-29 ml/min COPD exacerbation Elevated PSA Erectile dysfunction Gout attack History of pulmonary embolism Hyperkalemia Hyperlipidemia Hypersomnolence Hypertension, essential Insomnia Ischemic cardiomyopathy Left shoulder pain Mild aortic regurgitation Mild aortic stenosis 12/07/2018: Mean gradient 4.6 mmHg, aortic valve area 2.2 cm? Moderate pulmonary arterial systolic hypertension Respiratory distress Smoking Quit 2020 Stasis dermatitis of lower extremity due to chronic peripheral vascular hypertension Tear of left rotator cuff Surgical History H/O abdominal surgery hernia History of ankle surgery History of back surgery Postoperative state Family History Family/Other Cancer Mother Dementia Diabetes Sister Diabetes CAD (coronary artery disease) Father , AT AGE 78 Brain aneurysm Denies family history of Clotting disorder Hyperlipidemia Psychiatric illness Chronic kidney disease (CKD) Suicide Anesthesia complication Bleeding disorder Family history of premature coronary artery disease Lung disease Hypertension Stroke Social History Smoking and tobacco status: former smoker Quit status (tobacco): has quit using tobacco Year quit tobacco: 2020 Former quit date comment: 0.5 ppd X 15 years Alcohol intake: current Alcohol intake frequency: few times a month Marital status: Current occupational status: disabled History of recent travel: No Vitals/I&O/Wt Last Vital Signs Pulse 97 10/02/21 14:58 Resp 18 10/02/21 14:58 BP 172/123 10/02/21 14:58 Pulse Ox 98 10/02/21 14:58 Weight last 48 hrs Weight 197 lb Physical Exam Narrative: GENERAL: In general he is awake alert but short of breath at rest even sitting up HEENT: Exam within normal limits. NECK: Supple without jugular vein distention. The carotid upstroke is normal without bruits. BACK: Exam normal. LUNGS: Some decreased breath sounds bilaterally HEART: Regular rate and rhythm. ABDOMEN: Benign without organomegaly or tenderness. EXTREMITIES: 3+ edema bilaterally to the knees NEUROLOGIC: Exam normal. SKIN: Unremarkable. Data : 10/02/21 12:49 10/02/21 12:49 Micro: Microbiology 10/02/21 15:34 Blood Culture - Preliminary Blood SPECIMEN COLLECTED A&P Assessment and plan (1) Acute respiratory failure with hypoxia: Status: Acute (2) Volume overload: Status: Acute (3) CHF exacerbation: Status: Acute (4) Acute kidney injury superimposed on CKD: Status: Acute (5) CKD (chronic kidney disease) stage 4, GFR 15-29 ml/min: Status: Acute (6) Hypertension, essential: Status: Acute (7) Personal history of nicotine dependence: Status: Acute (8) Cardiomyopathy: Status: Acute (9) Obstructive sleep apnea: Status: Acute (10) Emphysema lung: Status: Acute (11) Moderate pulmonary arterial systolic hypertension: Status: Acute (12) Anemia in chronic kidney disease (CKD): Status: Acute (13) Cardiomyopathy: Status: Acute Qualifiers: Cardiomyopathy type: dilated Qualified Code(s): I42.0 - Dilated cardiomyopathy (14) Hyperkalemia: Status: Acute (15) Mild aortic regurgitation: Status: Acute (16) Hyperlipidemia: Status: Acute Plan He will need an attempt at diuresis. Nephrology has suggested high-dose Lasix with metolazone. We could also choose intravenous Bumex and a drip form. I think he might benefit from dobutamine as well. I would start out with 2 mcg/kg/min. The only drawback to this would be tachycardia. His blood pressure can certainly handle the decreasing systemic vascular resistance associated with higher doses of dobutamine. We will see how he does over the next 24 to 48 hours and then decide on dialysis. I think he will probably consent to dialysis if if he realizes he is going to without it. Consult Attestations Medical Necessity Statement: Hospitalization required for the above medical problem management. Coding Level of Care Code New Pt Acute Maintenance Fitter for Jacquesg Rosas Patient Type New History Comprehensive Exam Comprehensive Medical Decision Making High Complexity Diagnoses Acute respiratory failure with hypoxia J96.01 Volume overload E87.70 CHF exacerbation I50.9 Acute kidney injury superimposed on CKD N17.9; N18.9 CKD (chronic kidney disease) stage 4, GFR 15-29 ml/min N18.4 Hypertension, essential I10 Personal history of nicotine dependence Z87.891 Cardiomyopathy I42.9 Obstructive sleep apnea G47.33 Emphysema lung J43.9 Moderate pulmonary arterial systolic hypertension I27.21 Anemia in chronic kidney disease (CKD) N18.9; D63.1 Cardiomyopathy I42.0 Cardiomyopathy type: dilated Hyperkalemia E87.5 Mild aortic regurgitation I35.1 Hyperlipidemia E78.5
--- NOTE | 2021-10-02 16:32 | PC.NURSE ---
REPORT CALLED TO ALBAN FLORES IN ICU.
[2021-10-02 17:16] LABS: Troponin 5 2HR 74.85 ng/L (0-15)
[2021-10-02] MEDS: ipratropium-albuterol 3 mL Neb INHALATION ×2 (17:25→19:32)
[2021-10-02 17:35] LABS: Thyroid Stimulating Hormone 2.17 uIU/mL (0.27-4.20)
[2021-10-02] MEDS: aspirin 81 mg EC Tablet PO (17:35)
[2021-10-02] MEDS: hyDRALAzine 25 mg Tablet PO ×2 (17:35→20:41)
[2021-10-02] MEDS: carvedilol 25 mg Tablet PO (17:35)
[2021-10-02] MEDS: sodium bicarbonate 650 mg Tablet PO ×2 (17:35→20:41)
[2021-10-02] MEDS: pantoprazole 40 mg SDV IVP (17:35)
[2021-10-02 17:46] LABS: Creatine Phosphokinase 264 U/L (39-308); Uric Acid 10.8 mg/dL (3.4-7.0)
[2021-10-02] MEDS: acetaminophen 325 mg Tablet 650 MG PO (17:46)
[2021-10-02] MEDS: heparin 5,000 unit/mL INJ 1 mL 5000 UNIT SUBCUT (17:48)
[2021-10-02] MEDS: DOBUTamine drip 500 MG/250 ML PREMIX 5.36 MG IV (17:53)
[2021-10-02 18:17] LABS: Bilirubin Urine Neg (Negative); Blood Urine Trace (Negative); Glucose Urine UA Norm (Normal); Ketones Urine Negative (Negative); Nitrate Urine Positive (Negative); Protein Urine 3+ (Negative); Urine Appearance Clear (CLEAR); Urine Color Yellow (Yellow); Urobilinogen Urine Norm (Negative); pH Urine 5 (5-7)
[2021-10-02 18:18] LABS: Add Urine Culture? Yes; Add Urine Microscopic? YES; Bacteria Urine 3+ /hpf; Leukocyte Esterase Urine 1+ (Negative); Squamous Epithelial Cell Urine 0-4 /hpf (0-5)
[2021-10-02 18:27] LABS: Urine Creatinine 53 mg/dL (39-259); Urine Random Sodium 86 mmol/L
[2021-10-02 18:42] LABS: UPRO/UCREAT Ratio 8.32 mg/mg CR; Urine Protein Random 441 mg/dL
--- NOTE | 2021-10-02 18:42 | ECG_ITS ---
[facility] Test Date: 2021-10-02 Pat Name: Fredy Hammonds Department: Room: ICU08 Gender: Male Lieutenant General: : 1955 Requested By: Audi Flores Order Number: [id number] Arianne MD: Wander Alvarado M.D. Measurements Intervals [place] Rate: 93 P: 56 RI: 154 QRS: -45 QRSD: 98 T: 172 QT: 370 QTc: 461 Interpretive Statements SINUS RHYTHM WITH OCCASIONAL SUPRAVENTRICULAR PREMATURE COMPLEXES LEFT ANTERIOR FASCICULAR BLOCK [QRS AXIS <= -45, QR IN I, RS IN II] POSSIBLE ANTERIOR MYOCARDIAL INFARCTION , OF INDETERMINATE AGE [30 ms Q WAVE IN V3/V4, OR R < 0.2 mV IN V4] MODERATE T-WAVE ABNORMALITY, CONSIDER LATERAL ISCHEMIA [-0.1+ mV T-WAVE IN I/aVL/V5/V6] Compared to ECG 10/02/2021 14:19:34 Left anterior fascicular block now present Left-axis deviation no longer present Myocardial infarct finding still present T-wave abnormality still present Possible ischemia still present Electronically Signed On 10-03-2021 12:34:21 CDT by Wander Alvarado M.D. [id number]
[2021-10-02 18:45] LABS: Chol HDL Ratio 2.47 mg/dL (1.0-5.00); Cholesterol 106 mg/dL (0-200); HDL Cholesterol 43 mg/dL (60-100); LDL Cholesterol Calculated 45 mg/dL (50-129); LDL HDL Ratio 1.05 RATIO (0.00-3.22); Thyroid Stimulating Hormone 2.15 uIU/mL (0.27-4.20); Triglycerides 88 mg/dL (0-150)
[2021-10-02 19:43] LABS: Troponin 5 6HR 72.51 ng/L (0-15); Troponin 5 6HR Delta -9.49 ng/L (0-12)
[2021-10-02 20:43] LABS: Estmated Average Glucose 117; Hemoglobin A1C 5.7 % (4.0-6.0)
[2021-10-03] VITALS (26 sets, daily range): BP systolic 131–163; BP diastolic 90–116; PULSE 80–100; RESP 13–27; TEMP 36.2–36.8; O2SAT 83–100
[2021-10-03] MEDS: FUROsemide 10 mg/mL SDV 10mL 80 MG IVP ×3 (01:57→17:41)
[2021-10-03] MEDS: heparin 5,000 unit/mL INJ 1 mL 5000 UNIT SUBCUT ×2 (05:45→17:48)
[2021-10-03 05:56] LABS: Basophils % 0.4 %; Eosinophils # 0.1 10^3/uL (0.0-0.8); Eosinophils % 0.7 %; Hematocrit 28.4 % (42.0-52.0); Hemoglobin 9.1 g/dL (11.7-16.6); Lymphocytes # 1.1 10^3/uL (0.8-4.8); Mean Corpuscular Hemoglobin 28.6 pg (28.0-34.0); Mean Corpuscular Volume 89.3 fl (80-94); Mean Platelet Volume 11.7 fL (7.4-10.4); Monocytes # 0.6 10^3/uL (0.2-0.9); Monocytes % 8.4 %; Neutrophils # 5.28 10^3/uL (1.8-7.7); Neutrophils % 74.1 %; Nucleated Red Blood Cells # 0.1 /100WBC; Nucleated Red Blood Cells % 1.1 %; Platelet Count 206 10^3/cmm (130-400); Red Blood Count 3.18 10^6/uL (4.1-5.3); Red Cell Distribution Width 18.1 % (12.1-15.1); White Blood Count 7.1 10^3/uL (4.0-10.0)
[2021-10-03 06:07] LABS: INR 1.13 (0.8-1.2)
[2021-10-03 06:20] LABS: Lactate (Lactic Acid level) 0.7 mmol/L (0.5-2.2)
[2021-10-03 06:26] LABS: Alanine Aminotransferase 26 U/L (0-41); Albumin Level 2.5 g/dL (3.5-5.2); Alkaline Phosphatase 112 IU/L (40-130); Anion Gap 18.6 (5-19); Aspartate Amino Transferase 53 U/L (0-40); Blood Urea Nitrogen 79 mg/dL (8-23); Calcium 6.6 mg/dL (8.5-10.5); Carbon Dioxide 15 mmol/L (22-29); Chloride 110 mmol/L (98-107); Creatine Phosphokinase 204 U/L (39-308); Globulin 3.2 g/dL (1.3-4.6); Glomerular Filtration Rate 7.7 mL/min (90-130); Glucose 131 mg/dL (65-115); Magnesium 1.9 mg/dL (1.7-2.3); Osmolality Calculated 311 mOsm/kg (285-295); Potassium 5.6 mmol/L (3.5-5.1); Sodium 138 mmol/L (136-145); Total Bilirubin 0.3 mg/dL (0.15-1.2); Total Protein 5.7 g/dL (6.6-8.7)
[2021-10-03 07:21] LABS: NT Pro B Type Natriuretic Pept > 70000 pg/mL (0-125)
[2021-10-03] MEDS: ipratropium-albuterol 3 mL Neb INHALATION ×3 (07:47→21:00)
--- NOTE | 2021-10-03 08:01 | PM.PN ---
Subjective Subjective: Mr. Hammonds feels okay with no acute complaints. Good urine output in response to the diuretic combination as well as Dobutrex infusion. He still has significant lower extremity edema, however, he is breathing more comfortably today. No other specific uremic symptoms at this time including myoclonus, altered mental status etc. Vitals/I&O/Wt Last Vital Signs Temp 98.2 F 10/03/21 04:00 Pulse 88 10/03/21 07:00 Resp 16 10/03/21 07:00 BP 141/93 10/03/21 06:00 Pulse Ox 96 10/03/21 07:00 10/02/21 10/03/21 10/03/21 22:59 06:59 14:59 Intake Total 525 / 525 100 / 625 Output Total 995 / 995 925 / 1920 Balance -470 / -470 -825 / -1295 Weight last 48 hrs Weight 89.947 kg Weight 89.074 kg Weight 89.358 kg Physical Exam Narrative: Constitutional: Awake, comfortable HEENT: Wet mucosa, no jvp, non icteric Lungs: Bilaterally basal rales CVS: S1 S2, no murmurs Abdo: Soft, BS ok Ext 4: 2-3+ edema, peripheral perfusion with no cyanosis Neurological: Grossly non-focal Data : 10/03/21 05:45 10/03/21 05:45 Micro: Microbiology 10/02/21 16:44 Blood Culture - Preliminary Blood SPECIMEN COLLECTED 10/02/21 15:34 Blood Culture - Preliminary Blood SPECIMEN COLLECTED A&P Assessment and plan (1) CKD (chronic kidney disease) stage 4, GFR 15-29 ml/min: Status: Acute Plan 1. Acute on chronic renal failure. Despite high-dose diuretics, effective diuresis and Dobutrex, there is no improvement in renal function at this time. If we can control potassium, will hold off dialysis until Tuesday morning when we can place a tunneled dialysis catheter with a view to committing him to long-term hemodialysis. Cont with high-dose diuretics Lasix 80 mg IV 3 times daily as well as metolazone 5 mg twice daily. I discussed with him the potential need for hemodialysis if he fails to respond to this type of therapy, in which case he would be willing to have dialysis as he is not quite ready for hospice. Strict I's and O's Dose medication for GFR less than 15 Avoid usual's 2. Hypertension Better No changes to meds On Dubtrex Cardiology input appreciated from Dr Alvarado 3. Chemistry Relatively minor noncritical aberration includes hyperkalemia, acidosis. Hold Sodium Bicarb given need to avoid sodium loading Kayexalate prescribed Phone call placed per his request to Jeannette his daughter at [phone]. Message left Thank you for consultation, it is a pleasure to follow these cases with you Exam and interview performed with aid of bedside RN using telemedicine Time spent 20 min inc > 50% of time in face to face counseling Daniel Wadsworth MD [facility] [phone] Attestations Medical Necessity Statement*: eval for renal failure Coding Level of Care Code Acute Bindery Operator for Chg Fwd Diagnoses CKD (chronic kidney disease) stage 4, GFR 15-29 ml/min N18.4
[2021-10-03] MEDS: metOLazone 5 MG Tablet PO ×2 (08:21→17:48)
[2021-10-03] MEDS: aspirin 81 mg EC Tablet PO (08:21)
[2021-10-03] MEDS: sodium polystyrene sulfonate 15 gm/60 mL Btl PO (08:21)
[2021-10-03] MEDS: hyDRALAzine 25 mg Tablet PO ×3 (08:21→20:01)
[2021-10-03] MEDS: carvedilol 25 mg Tablet PO ×2 (08:21→17:41)
[2021-10-03] MEDS: cefTRIAXone 1,000 MG in sodium chloride 0.9% (plus) 50 ML 100 MG IV (08:21)
--- NOTE | 2021-10-03 08:32 | P.PN_ITS ---
Subjective Subjective: Fredy is slightly improved overnight. He is a little less short of breath however still cannot lie flat. He made 1920 mL of urine overnight. He is on dobutamine 2 mcg/kg/min and Lasix 80 mg 3 times a day with metolazone. His hemoglobin is 9.1 this morning. His creatinine is actually gone up to 8.5. His potassium is still 5.6. He does not appear to be having any uremic symptoms. Vitals/I&O/Wt Last Vital Signs Temp 97.6 F 10/03/21 08:00 Pulse 86 10/03/21 08:00 Resp 19 H 10/03/21 08:00 BP 148/94 10/03/21 08:00 Pulse Ox 92 10/03/21 07:00 10/02/21 10/03/21 10/03/21 22:59 06:59 14:59 Intake Total 525 / 525 100 / 625 Output Total 995 / 995 925 / 1920 Balance -470 / -470 -825 / -1295 Weight last 48 hrs Weight 198 lb 4.8 oz Weight 196 lb 6 oz Weight 197 lb Physical Exam Narrative: GENERAL: Sitting upright mildly short of breath HEENT: Exam within normal limits. NECK: Supple without jugular vein distention. The carotid upstroke is normal without bruits. BACK: Exam normal. LUNGS: Clear. Occasional scattered moist rales HEART: Regular rate and rhythm. ABDOMEN: Benign without organomegaly or tenderness. EXTREMITIES: 3+ edema NEUROLOGIC: Exam normal. SKIN: Unremarkable. Data : 10/03/21 05:45 10/03/21 05:45 Micro: Microbiology 10/02/21 16:44 Blood Culture - Preliminary Blood SPECIMEN COLLECTED 10/02/21 15:34 Blood Culture - Preliminary Blood SPECIMEN COLLECTED A&P Assessment and plan (1) Hyperlipidemia: Status: Acute (2) Mild aortic regurgitation: Status: Acute (3) Hyperkalemia: Status: Acute (4) Acute respiratory failure with hypoxia: Status: Acute (5) Volume overload: Status: Acute (6) CHF exacerbation: Status: Acute (7) Acute kidney injury superimposed on CKD: Status: Acute (8) Hypertension, essential: Status: Acute (9) Cardiomyopathy: Status: Acute (10) Obstructive sleep apnea: Status: Acute (11) Moderate pulmonary arterial systolic hypertension: Status: Acute (12) Anemia in chronic kidney disease (CKD): Status: Acute Plan Continue the dobutamine and diuretics. Still is not in acute need of dialysis however it would not be surprising if it was required. Today he states he will proceed with it if it is necessary. Attestations Medical Necessity Statement*: Hospital stay required for management of cardiomyopathy, heart failure, renal failure. Coding Level of Care Code Established Pt Acute Return To Factory Clerk for g Fwd Patient Type Established History Comprehensive Exam Comprehensive Medical Decision Making High Complexity Diagnoses Hyperlipidemia E78.5 Mild aortic regurgitation I35.1 Hyperkalemia E87.5 Acute respiratory failure with hypoxia J96.01 Volume overload E87.70 CHF exacerbation I50.9 Acute kidney injury superimposed on CKD N17.9; N18.9 Hypertension, essential I10 Cardiomyopathy I42.9 Obstructive sleep apnea G47.33 Moderate pulmonary arterial systolic hypertension I27.21 Anemia in chronic kidney disease (CKD) N18.9; D63.1
[2021-10-03 09:50] LABS: NT Pro B Type Natriuretic Pept > 70000 pg/mL (0-125)
--- NOTE | 2021-10-03 12:52 | PC.NURSE ---
Report given to Eamon FLORES.
--- NOTE | 2021-10-03 14:40 | P.PN_ITS ---
Subjective Subjective: Patient was seen this morning, he is having breakfast, he is concerned that he might need dialysis, but is agreeable if required, no chest pain, his edema is improving, he is off oxygen on room air, no abdominal pain, no chest pain, no shortness of breath Vitals/I&O/Wt Last Vital Signs Temp 97.7 F 10/03/21 14:00 Pulse 100 10/03/21 14:00 Resp 19 H 10/03/21 14:00 BP 139/105 10/03/21 14:00 Pulse Ox 97 10/03/21 14:00 10/02/21 10/03/21 10/03/21 22:59 06:59 14:59 Intake Total 525 / 525 100 / 625 888 / 888 Output Total 995 / 995 925 / 1920 1150 / 1150 Balance -470 / -470 -825 / -1295 -262 / -262 Weight last 48 hrs Weight 89.947 kg Weight 89.074 kg Weight 89.358 kg Physical Exam Const: COMMON NORMALS: no acute distress and patient oriented x3 Resp: COMMON NORMALS: normal respiratory effort, No retractions, No use of accessory muscles and clear to auscultation bilaterally AUSCULTATION: clear to auscultation bilaterally Cardio: COMMON NORMALS: regular rate, regular rhythm, S1 normal heart sound present and S2 normal heart sound present RATE: regular rate RHYTHM: regular rhythm HEART SOUNDS: S1 normal heart sound present and S2 normal heart sound present GI: COMMON NORMALS: Normal to inspection, nondistended, normoactive bowel sounds present, Soft to palpation and non-tender PALPATION: Yes Soft to palpation Extremity: NARRATIVE EXTREMITY EXAM: 2+ pitting edema Neuro: COMMON NORMALS: patient oriented x3 Psych: COMMON NORMALS: mental status grossly normal Data : 10/03/21 05:45 10/03/21 05:45 Micro: Microbiology 10/02/21 16:44 Blood Culture - Preliminary Blood Gram positive cocci 10/02/21 15:34 Blood Culture - Preliminary Blood SPECIMEN COLLECTED A&P Assessment and plan (1) Volume overload: Status: Acute (2) CHF exacerbation: Status: Acute (3) Acute kidney injury superimposed on CKD: Status: Acute (4) CKD (chronic kidney disease) stage 4, GFR 15-29 ml/min: Status: Acute (5) Hypertension, essential: Status: Acute (6) Acute respiratory failure with hypoxia: Status: Acute (7) Mild aortic regurgitation: Status: Acute (8) Hyperlipidemia: Status: Acute (9) Cardiomyopathy: Status: Acute (10) Systolic CHF: Status: Acute (11) Moderate pulmonary arterial systolic hypertension: Status: Acute (12) Urinary tract infection: Status: Acute Plan Acute hypoxic respiratory failure, bilateral extremity edema, fluid overload -Secondary to systolic and diastolic CHF -Also has evidence of acute on chronic renal failure CT chest 1. Comparison contrast-enhanced CT 04/13/2019. 2. Minimal pulmonary emphysema. Slight interval progression of minimal central peribronchial thickening without bronchiectasis. Otherwise no acute lung consolidation or ground-glass opacity. Scattered areas of linear scarring-atelectasis bilaterally. Mild pulmonary hyperinflation/COPD-mild chronic bronchitis probably present. 3. New small bilateral pleural effusions. 4. Coronary calcifications and other cardiovascular findings as above. 5. Slightly prominent ascending aorta and main pulmonary artery. See discussion above. 6. Small amount of perihepatic ascites and incidental right renal findings as above. Cardiac echocardiogram Severely increased left ventricular cavity size. Normal left ?ventricular wall thickness. Severely decreased left ventricular ?systolic function. Left ventricular ejection fraction is ?estimated at 20 %. Grade III/IV diastolic dysfunction ?(restrictive filling pattern), severely elevated filling ?pressures. Global left ventricular hypokinesis. ?Normal right ventricular size. Moderately decreased right ?ventricular systolic function. Moderate pulmonary hypertension, ?RVSP 59 mmHg. ?Mildly increased right atrial size. ?Mildly increased left atrial size. ?Structurally normal mitral valve. Mild mitral valve ?regurgitation. ?Structurally normal trileaflet aortic valve. No aortic valve ?stenosis. [id number] aortic valve regurgitation. Plan -Admit to ICU -Receiving Lasix 80 3 times daily with metolazone -EF 20%, on dobutamine drip -Order cardiac echocardiogram, monitor EF might require dobutamine drip -Monitor urine output, monitor creatinine, Place Baig catheter -Blood pressure control -In discussion with patient, he is agreeable for dialysis if required -Full code -Heparin for DVT prophylaxis -For now I will hold his Plavix, due to possibility of dialysis catheter placement, on aspirin Acute renal failure, creatinine 8, nephrology on consult, likely will require dialysis catheter placement with dialysis NSTEMI -Statin -Aspirin 81 mg -Coreg -Cardiac echo as above Hypertensive urgency, blood pressure 172/126 -Continue Coreg, hydralazine, clonidine BPH Obstructive sleep apnea, CPAP Attestations Medical Necessity Statement*: Patient requires hospitalization for fluid overload, systolic CHF, EF 20%, acute renal failure, critical care time spent 25 minutes Coding Level of Care Code Acute Sculpture Instructor for Chg Fwd Diagnoses Volume overload E87.70 CHF exacerbation I50.9 Acute kidney injury superimposed on CKD N17.9; N18.9 CKD (chronic kidney disease) stage 4, GFR 15-29 ml/min N18.4 Hypertension, essential I10 Acute respiratory failure with hypoxia J96.01 Mild aortic regurgitation I35.1 Hyperlipidemia E78.5 Cardiomyopathy I42.9 Systolic CHF I50.20 Moderate pulmonary arterial systolic hypertension I27.21 Urinary tract infection N39.0
[2021-10-03] MEDS: pantoprazole 40 mg SDV IVP (17:41)
--- NOTE | 2021-10-03 18:52 | PC.NURSE ---
SHIft SUmmary: patient has rested in bed throughout most of the day, but up to a chair for dinner. form 7am to 7pm, patient has had 1000mL in, using up his whole fluid restriction allotment, and has had 1625 mL of urine output. Patient's legs, all the way up to his hips have 3+ pitting edema. Lasix seems not to elicit much of a diuretic response.
[2021-10-03] MEDS: trazodone 50 mg Tablet 25 MG PO (20:00)
[2021-10-04] VITALS (37 sets, daily range): BP systolic 147–173; BP diastolic 88–121; PULSE 85–103; RESP 14–41; TEMP 35.7–36.8; O2SAT 79–100
[2021-10-04] MEDS: FUROsemide 10 mg/mL SDV 10mL 80 MG IVP ×3 (02:06→17:13)
[2021-10-04 03:23] LABS: Basophils % 0.3 %; Eosinophils # 0.1 10^3/uL (0.0-0.8); Eosinophils % 0.8 %; Hematocrit 28.2 % (42.0-52.0); Lymphocytes # 0.9 10^3/uL (0.8-4.8); Lymphocytes % 11.8 %; Mean Corpuscular HGB Conc 31.9 g/dL (30.0-36.0); Mean Corpuscular Hemoglobin 28.5 pg (28.0-34.0); Mean Corpuscular Volume 89.2 fl (80-94); Mean Platelet Volume 11.7 fL (7.4-10.4); Monocytes # 0.6 10^3/uL (0.2-0.9); Monocytes % 7.8 %; Neutrophils # 5.86 10^3/uL (1.8-7.7); Neutrophils % 78.8 %; Nucleated Red Blood Cells % 0.4 %; Platelet Count 207 10^3/cmm (130-400); Red Blood Count 3.16 10^6/uL (4.1-5.3); Red Cell Distribution Width 17.9 % (12.1-15.1); White Blood Count 7.4 10^3/uL (4.0-10.0)
[2021-10-04 03:32] LABS: INR 1.08 (0.8-1.2)
[2021-10-04 03:44] LABS: Lactate (Lactic Acid level) 0.6 mmol/L (0.5-2.2)
[2021-10-04 03:58] LABS: Alanine Aminotransferase 26 U/L (0-41); Albumin Level 2.5 g/dL (3.5-5.2); Alkaline Phosphatase 110 IU/L (40-130); Anion Gap 20.8 (5-19); Aspartate Amino Transferase 42 U/L (0-40); Calcium 6.7 mg/dL (8.5-10.5); Carbon Dioxide 16 mmol/L (22-29); Chloride 106 mmol/L (98-107); Creatine Phosphokinase 188 U/L (39-308); Globulin 3.1 g/dL (1.3-4.6); Glomerular Filtration Rate 7.7 mL/min (90-130); Glucose 120 mg/dL (65-115); Magnesium 1.9 mg/dL (1.7-2.3); Osmolality Calculated 312 mOsm/kg (285-295); Phosphorus 6.9 mg/dL (2.5-4.5); Potassium 4.8 mmol/L (3.5-5.1); Sodium 138 mmol/L (136-145); Total Bilirubin 0.2 mg/dL (0.15-1.2); Total Protein 5.6 g/dL (6.6-8.7)
[2021-10-04 04:04] LABS: Blood Urea Nitrogen 83 mg/dL (8-23)
[2021-10-04 04:26] LABS: NT Pro B Type Natriuretic Pept > 70000 pg/mL (0-125)
[2021-10-04] MEDS: heparin 5,000 unit/mL INJ 1 mL 5000 UNIT SUBCUT ×2 (05:35→17:15)
--- NOTE | 2021-10-04 07:03 | P.PN_ITS ---
Subjective Subjective: Fredy is improved. He has had good urine output last night. Total output 3700 mL. Balance -2550 mL. Shortness of breath is improved. Edema is better. No pain. Creatinine remains high at 8.5 with a BUN of 83. Vitals/I&O/Wt Last Vital Signs Temp 98.0 F 10/04/21 04:00 Pulse 90 10/04/21 06:00 Resp 17 10/04/21 06:00 BP 155/99 10/04/21 06:00 Pulse Ox 100 10/04/21 06:00 10/03/21 10/04/21 10/04/21 22:59 06:59 14:59 Intake Total 262 / 1150 Output Total 1050 / 2200 1500 / 3700 Balance -788 / -1050 -1500 / -2550 Weight last 48 hrs Weight 193 lb 12.8 oz Weight 198 lb 4.8 oz Weight 196 lb 6 oz Weight 197 lb Physical Exam Narrative: GENERAL: He is comfortable at rest. Breathing much more easily. Almost able to lie flat. HEENT: Exam within normal limits. NECK: Supple without jugular vein distention. The carotid upstroke is normal without bruits. BACK: Exam normal. LUNGS: Occasional moist rales HEART: Regular rate and rhythm. ABDOMEN: Benign without organomegaly or tenderness. EXTREMITIES: 1-2+ edema NEUROLOGIC: Exam normal. SKIN: Unremarkable. Data : 10/04/21 02:50 10/04/21 02:50 Micro: Microbiology 10/02/21 15:34 Blood Culture - Preliminary Blood NEGATIVE TO DATE 10/02/21 16:44 Blood Culture - Preliminary Blood Gram positive cocci A&P Assessment and plan (1) Systolic CHF: Status: Acute (2) Hyperlipidemia: Status: Acute (3) Mild aortic regurgitation: Status: Acute (4) Volume overload: Status: Acute (5) CHF exacerbation: Status: Acute (6) Acute kidney injury superimposed on CKD: Status: Acute (7) CKD (chronic kidney disease) stage 4, GFR 15-29 ml/min: Status: Acute (8) Hypertension, essential: Status: Acute (9) Personal history of nicotine dependence: Status: Acute (10) Cardiomyopathy: Status: Acute (11) Obstructive sleep apnea: Status: Acute (12) Moderate pulmonary arterial systolic hypertension: Status: Acute (13) Anemia in chronic kidney disease (CKD): Status: Acute (14) Cardiomyopathy: Status: Acute Qualifiers: Cardiomyopathy type: dilated Qualified Code(s): I42.0 - Dilated cardiomyopathy Plan Continue dobutamine low-dose. Continue Lasix and metolazone. Creatinine should come down over time. His potassium is 4.8 so is now within normal range. Still no indication for dialysis. Attestations Medical Necessity Statement*: Hospitalization required for management of cardiomyopathy, acute renal failure, heart failure. Coding Level of Care Code Established Pt Acute Military Technician for Chg Fwd Patient Type Established History Comprehensive Exam Comprehensive Medical Decision Making High Complexity Diagnoses Systolic CHF I50.20 Hyperlipidemia E78.5 Mild aortic regurgitation I35.1 Volume overload E87.70 CHF exacerbation I50.9 Acute kidney injury superimposed on CKD N17.9; N18.9 CKD (chronic kidney disease) stage 4, GFR 15-29 ml/min N18.4 Hypertension, essential I10 Personal history of nicotine dependence Z87.891 Cardiomyopathy I42.9 Obstructive sleep apnea G47.33 Moderate pulmonary arterial systolic hypertension I27.21 Anemia in chronic kidney disease (CKD) N18.9; D63.1 Cardiomyopathy I42.0 Cardiomyopathy type: dilated
[2021-10-04] MEDS: metOLazone 5 MG Tablet PO ×2 (08:16→17:13)
[2021-10-04] MEDS: hyDRALAzine 25 mg Tablet PO ×3 (08:16→20:34)
[2021-10-04] MEDS: cefTRIAXone 1,000 MG in sodium chloride 0.9% (plus) 50 ML 100 MG IV (08:17)
[2021-10-04] MEDS: aspirin 81 mg EC Tablet PO (08:17)
[2021-10-04] MEDS: carvedilol 25 mg Tablet PO ×2 (08:17→17:12)
[2021-10-04] MEDS: ipratropium-albuterol 3 mL Neb INHALATION ×2 (08:42→15:16)
--- NOTE | 2021-10-04 09:07 | P.PN_ITS ---
Subjective Subjective: Mr. Hammonds feels okay with no specific complaints. Good urine output on the combination of diuretics and dobutamine. No shortness of breath, no other hypervolemic symptoms. No uremic symptoms. Creatinine remains overtly elevated with no improvement. Vitals/I&O/Wt Last Vital Signs Temp 98.0 F 10/04/21 04:00 Pulse 89 10/04/21 08:46 Resp 17 10/04/21 08:40 BP 155/99 10/04/21 06:00 Pulse Ox 98 10/04/21 08:40 10/03/21 10/04/21 10/04/21 22:59 06:59 14:59 Intake Total 262 / 1150 Output Total 1050 / 2200 1500 / 3700 Balance -788 / -1050 -1500 / -2550 Weight last 48 hrs Weight 87.906 kg Weight 89.947 kg Weight 89.074 kg Weight 89.358 kg Physical Exam Narrative: Constitutional: Awake, comfortable HEENT: Wet mucosa, no jvp, non icteric Lungs: Bilaterally basal rales CVS: S1 S2, no murmurs Abdo: Soft, BS ok Ext 4: 2-3+ edema, peripheral perfusion with no cyanosis Neurological: Grossly non-focal Data : 10/04/21 02:50 10/04/21 02:50 Micro: Microbiology 10/02/21 15:34 Blood Culture - Preliminary Blood NEGATIVE TO DATE 10/02/21 16:44 Blood Culture - Preliminary Blood Gram positive cocci A&P Assessment and plan (1) CKD (chronic kidney disease) stage 4, GFR 15-29 ml/min: Status: Acute Plan 1. Acute on chronic renal failure, now progressed to ESRD It is now likely that he is progressed to end-stage renal disease. No improvement with venous decompression and Dobutrex gtt We are now seeing the end result of a long history of advancing renal failure. Would recommend tunneled dialysis catheter placement and initiation of gentle hemodialysis tomorrow morning, depending on surgeon availability. Strict I's and O's Dose medication for GFR less than 15 Avoid usual's 2. Hypertension Better No changes to meds On Dubtrex Cardiology input appreciated from Dr Alvarado 3. Chemistry Relatively minor noncritical aberration includes acidosis. Hold Sodium Bicarb given need to avoid sodium loading D/w Jeannette his daughter at [phone]. Thank you for consultation, it is a pleasure to follow these cases with you Exam and interview performed with aid of bedside RN using telemedicine Time spent 20 min inc > 50% of time in face to face counseling Daniel Wadsworth MD [facility] [phone] Attestations Medical Necessity Statement*: eval for renal failure Coding Level of Care Code Acute Director Rehabilitation Program for Chg Fwd Diagnoses CKD (chronic kidney disease) stage 4, GFR 15-29 ml/min N18.4
--- NOTE | 2021-10-04 14:23 | PM.PN ---
Subjective Subjective: Patient was seen this morning he tells me that the correctional officer chief is telling him he needs dialysis, he is agreeable for dialysis, dialysis catheter placement, but is worried about being on dialysis long-term I discussed with him that given his chronic kidney disease he is going to need to have dialysis for a long period of time, possibly the rest of his life, but we can monitor his kidney function, as his blood pressures is better controlled and his his cardiac function starts to improve, his kidney function might recover we will need to continue to monitor him, he will need to be compliant Vitals/I&O/Wt Last Vital Signs Temp 96.3 F L 10/04/21 09:00 Pulse 96 10/04/21 13:00 Resp 20 H 10/04/21 13:00 BP 160/115 10/04/21 13:00 Pulse Ox 99 10/04/21 13:00 10/03/21 10/04/21 10/04/21 22:59 06:59 14:59 Intake Total 262 / 1150 831.82 / 831.82 Output Total 1050 / 2200 1500 / 3700 1100 / 1100 Balance -788 / -1050 -1500 / -2550 -268.18 / -268.18 Weight last 48 hrs Weight 87.906 kg Weight 89.947 kg Weight 89.074 kg Physical Exam Const: COMMON NORMALS: no acute distress and patient oriented x3 Resp: COMMON NORMALS: normal respiratory effort, No retractions, No use of accessory muscles and clear to auscultation bilaterally AUSCULTATION: clear to auscultation bilaterally Cardio: COMMON NORMALS: regular rate, regular rhythm, S1 normal heart sound present and S2 normal heart sound present RATE: regular rate RHYTHM: regular rhythm HEART SOUNDS: S1 normal heart sound present and S2 normal heart sound present GI: COMMON NORMALS: Normal to inspection, nondistended, normoactive bowel sounds present, Soft to palpation, non-tender and No hepatosplenomegaly present PALPATION: Yes Soft to palpation and Yes No hepatosplenomegaly present Extremity: NARRATIVE EXTREMITY EXAM: 1+ pitting edema bilateral lower extremity Neuro: COMMON NORMALS: patient oriented x3 Psych: COMMON NORMALS: mental status grossly normal Data : 10/04/21 02:50 10/04/21 02:50 Micro: Microbiology 10/02/21 16:44 Blood Culture - Preliminary Blood Staphylococcus sp coag neg 10/02/21 15:34 Blood Culture - Preliminary Blood NEGATIVE TO DATE A&P Assessment and plan (1) Volume overload: Status: Acute (2) CHF exacerbation: Status: Acute (3) Acute kidney injury superimposed on CKD: Status: Acute (4) CKD (chronic kidney disease) stage 4, GFR 15-29 ml/min: Status: Acute (5) Hypertension, essential: Status: Acute (6) Acute respiratory failure with hypoxia: Status: Acute (7) Mild aortic regurgitation: Status: Acute (8) Hyperlipidemia: Status: Acute (9) Cardiomyopathy: Status: Acute (10) Systolic CHF: Status: Acute (11) Moderate pulmonary arterial systolic hypertension: Status: Acute (12) Urinary tract infection: Status: Acute Plan Acute hypoxic respiratory failure, bilateral extremity edema, fluid overload -Secondary to systolic and diastolic CHF -Also has evidence of acute on chronic renal failure CT chest 1. Comparison contrast-enhanced CT 04/13/2019. 2. Minimal pulmonary emphysema. Slight interval progression of minimal central peribronchial thickening without bronchiectasis. Otherwise no acute lung consolidation or ground-glass opacity. Scattered areas of linear scarring-atelectasis bilaterally. Mild pulmonary hyperinflation/COPD-mild chronic bronchitis probably present. 3. New small bilateral pleural effusions. 4. Coronary calcifications and other cardiovascular findings as above. 5. Slightly prominent ascending aorta and main pulmonary artery. See discussion above. 6. Small amount of perihepatic ascites and incidental right renal findings as above. Cardiac echocardiogram Severely increased left ventricular cavity size. Normal left ?ventricular wall thickness. Severely decreased left ventricular ?systolic function. Left ventricular ejection fraction is ?estimated at 20 %. Grade III/IV diastolic dysfunction ?(restrictive filling pattern), severely elevated filling ?pressures. Global left ventricular hypokinesis. ?Normal right ventricular size. Moderately decreased right ?ventricular systolic function. Moderate pulmonary hypertension, ?RVSP 59 mmHg. ?Mildly increased right atrial size. ?Mildly increased left atrial size. ?Structurally normal mitral valve. Mild mitral valve ?regurgitation. ?Structurally normal trileaflet aortic valve. No aortic valve ?stenosis. [id number] aortic valve regurgitation. Plan -Admit to ICU -Receiving Lasix 80 3 times daily with metolazone -EF 20%, on dobutamine drip -Diuresed over 4 L, creatinine 8.5 -Monitor urine output, monitor creatinine, Place Baig catheter -Blood pressure control -In discussion with patient, he is agreeable for dialysis, discussed with Dr. Alvarado, plan on dialysis catheter placement on Tuesday due to or availability over the holiday weekend, n.p.o. midnight tomorrow -Full code -Heparin for DVT prophylaxis -For now I will hold his Plavix, due to dialysis catheter placement, on aspirin Acute renal failure, creatinine 8.5, nephrology on consult, proceeding with dialysis catheter placement on Tuesday NSTEMI -Statin -Aspirin 81 mg -Coreg -Cardiac echo as above Hypertensive urgency, blood pressure 172/126 -Continue Coreg, hydralazine, clonidine BPH Obstructive sleep apnea, CPAP Attestations Medical Necessity Statement*: Patient requires hospitalization for bilateral extremity edema, fluid overload, cardiomyopathy, acute renal failure Coding Level of Care Code Acute Health Information Tech for Chg Fwd Diagnoses Volume overload E87.70 CHF exacerbation I50.9 Acute kidney injury superimposed on CKD N17.9; N18.9 CKD (chronic kidney disease) stage 4, GFR 15-29 ml/min N18.4 Hypertension, essential I10 Acute respiratory failure with hypoxia J96.01 Mild aortic regurgitation I35.1 Hyperlipidemia E78.5 Cardiomyopathy I42.9 Systolic CHF I50.20 Moderate pulmonary arterial systolic hypertension I27.21 Urinary tract infection N39.0
[2021-10-04] MEDS: HYDROcodone-acetaminophen 5-325 mg Tablet 1 TAB PO (15:37)
[2021-10-04] MEDS: pantoprazole 40 mg SDV IVP (17:10)
[2021-10-04 18:16] LABS: Hepatitis B Core AB, Total Non-Reactive (Nonreactive); Hepatitis B Surface Antigen Non-Reactive (Nonreactive)
[2021-10-04 18:17] LABS: Hepatitis B Surface AB < 3.5 (11.5-1000)
--- NOTE | 2021-10-04 18:33 | PC.NURSE ---
Addendum entered by Eamon Rdz RN 10/04/21 18:41: SHift SUmmary: Uneventful shift Patient has rested in bed for most of the shift, but was frequently up to a chair. Compliant with fluid restriction. total oral intake has been 920 during day shift, and urine output has been 1823 mL. Patient is very nervous about getting a dialysis catheter and the manager long term care implications of dialysis, but he has also become more extroverted and more interested in his care going forward. Swelling to lower extremeties is notably decreased. Original Note: SHift SUmmary: Uneventful shift Patient has rested in bed for most of the shift, but was frequently up to a chair. Compliant with fluid restriction. total oral intake has been 920 during day shift, and urine output has been 1823 mL. Patient is very nervous about getting a dialysis catheter and the manager long term care implications of dialysis, but he has also become more extroverted and more interested in his care going forward.
[2021-10-04] MEDS: trazodone 50 mg Tablet 25 MG PO (20:34)
[2021-10-04] MEDS: DOBUTamine drip 500 MG/250 ML PREMIX 5.36 MG IV (20:53)
[2021-10-05] VITALS (32 sets, daily range): BP systolic 130–170; BP diastolic 87–124; PULSE 78–97; RESP 14–36; TEMP 36.1–37.1; O2SAT 94–100
[2021-10-05] MEDS: FUROsemide 10 mg/mL SDV 10mL 80 MG IVP (01:36)
[2021-10-05 05:18] LABS: Basophils % 0.4 %; Eosinophils # 0.1 10^3/uL (0.0-0.8); Eosinophils % 1.4 %; Hematocrit 27.9 % (42.0-52.0); Hemoglobin 9.1 g/dL (11.7-16.6); Lymphocytes # 0.9 10^3/uL (0.8-4.8); Lymphocytes % 11.9 %; Mean Corpuscular HGB Conc 32.6 g/dL (30.0-36.0); Mean Corpuscular Volume 88.9 fl (80-94); Mean Platelet Volume 11.8 fL (7.4-10.4); Monocytes # 0.7 10^3/uL (0.2-0.9); Monocytes % 8.9 %; Neutrophils # 6.07 10^3/uL (1.8-7.7); Nucleated Red Blood Cells % 0.3 %; Platelet Count 211 10^3/cmm (130-400); Red Blood Count 3.14 10^6/uL (4.1-5.3); Red Cell Distribution Width 18.1 % (12.1-15.1); White Blood Count 7.9 10^3/uL (4.0-10.0)
[2021-10-05 05:30] LABS: INR 1.05 (0.8-1.2)
[2021-10-05] MEDS: heparin 5,000 unit/mL INJ 1 mL 5000 UNIT SUBCUT ×2 (05:32→17:16)
[2021-10-05 05:40] LABS: Lactate (Lactic Acid level) 1.1 mmol/L (0.5-2.2)
[2021-10-05 05:42] LABS: Alanine Aminotransferase 22 U/L (0-41); Albumin Level 2.4 g/dL (3.5-5.2); Alkaline Phosphatase 103 IU/L (40-130); Anion Gap 19.5 (5-19); Aspartate Amino Transferase 40 U/L (0-40); Calcium 6.4 mg/dL (8.5-10.5); Carbon Dioxide 17 mmol/L (22-29); Chloride 107 mmol/L (98-107); Globulin 3.1 g/dL (1.3-4.6); Glomerular Filtration Rate 7.3 mL/min (90-130); Glucose 137 mg/dL (65-115); Osmolality Calculated 316 mOsm/kg (285-295); Phosphorus 6.7 mg/dL (2.5-4.5); Potassium 4.5 mmol/L (3.5-5.1); Sodium 139 mmol/L (136-145); Total Bilirubin 0.2 mg/dL (0.15-1.2); Total Protein 5.5 g/dL (6.6-8.7)
[2021-10-05 05:50] LABS: Creatine Phosphokinase 158 U/L (39-308)
[2021-10-05 05:51] LABS: Blood Urea Nitrogen 86 mg/dL (8-23)
[2021-10-05 06:24] LABS: NT Pro B Type Natriuretic Pept > 70000 pg/mL (0-125)
--- NOTE | 2021-10-05 07:21 | P.PN_ITS ---
Subjective Subjective: Fredy is basically unchanged. Total urine output yesterday 3450 mL. Balance is -2006 mL. Unfortunately, his creatinine continues to rise. It is now 8.9. Edema is improved. Shortness of breath improved. Remains on low- dose dobutamine. Vitals/I&O/Wt Last Vital Signs Temp 97.8 F 10/05/21 04:00 Pulse 93 10/05/21 06:00 Resp 23 H 10/05/21 06:00 BP 136/97 10/05/21 06:00 Pulse Ox 99 10/05/21 06:00 10/04/21 10/05/21 10/05/21 22:59 06:59 14:59 Intake Total 511.435 / 1343.255 100 / 1443.255 Output Total 1200 / 2300 1150 / 3450 Balance -688.565 / -956.745 -1050 / -2006.745 Weight last 48 hrs Weight 186 lb 8 oz Weight 193 lb 12.8 oz Physical Exam Narrative: GENERAL: In general he seems comfortable this morning HEENT: Exam within normal limits. NECK: Supple without jugular vein distention. The carotid upstroke is normal without bruits. BACK: Exam normal. LUNGS: Clear. HEART: Regular rate and rhythm. ABDOMEN: Benign without organomegaly or tenderness. EXTREMITIES: 1+ edema NEUROLOGIC: Exam normal. SKIN: Unremarkable. Data : 10/05/21 05:00 10/05/21 05:00 Micro: Microbiology 10/02/21 16:44 Blood Culture - Preliminary Blood Staphylococcus sp coag neg A&P Assessment and plan (1) Systolic CHF: Status: Acute (2) Hyperlipidemia: Status: Acute (3) Mild aortic regurgitation: Status: Acute (4) Volume overload: Status: Acute (5) Acute respiratory failure with hypoxia: Status: Acute (6) CHF exacerbation: Status: Acute (7) Hypertension, essential: Status: Acute (8) Personal history of nicotine dependence: Status: Acute (9) Obstructive sleep apnea: Status: Acute (10) Moderate pulmonary arterial systolic hypertension: Status: Acute (11) Anemia in chronic kidney disease (CKD): Status: Acute (12) Cardiomyopathy: Status: Acute Qualifiers: Cardiomyopathy type: dilated Qualified Code(s): I42.0 - Dilated cardiomyopathy (13) End stage renal disease: Status: Acute Plan Unfortunately for Fredy it appears his creatinine will continue to go up rather than trend downward. He will need dialysis. His heart failure is slightly improved. I would continue the dobutamine for the next 2 or 3 days. Attestations Medical Necessity Statement*: Hospitalization required for management of heart failure and end-stage renal disease. Coding Level of Care Code Established Pt Acute Naturopathic Oncology Provider for Jacquesg Fwd Patient Type Established History Detailed 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 Medical Decision Making Moderate Complexity Diagnoses Systolic CHF I50.20 Hyperlipidemia E78.5 Mild aortic regurgitation I35.1 Volume overload E87.70 Acute respiratory failure with hypoxia J96.01 CHF exacerbation I50.9 Hypertension, essential I10 Personal history of nicotine dependence Z87.891 Obstructive sleep apnea G47.33 Moderate pulmonary arterial systolic hypertension I27.21 Anemia in chronic kidney disease (CKD) N18.9; D63.1 Cardiomyopathy I42.0 Cardiomyopathy type: dilated End stage renal disease N18.6
[2021-10-05] MEDS: ipratropium-albuterol 3 mL Neb INHALATION ×3 (07:49→20:17)
[2021-10-05] MEDS: cefTRIAXone 1,000 MG in sodium chloride 0.9% (plus) 50 ML 100 MG IV (08:01)
[2021-10-05] MEDS: metOLazone 5 MG Tablet PO ×2 (08:02→17:15)
[2021-10-05] MEDS: carvedilol 25 mg Tablet PO ×2 (08:03→17:16)
[2021-10-05] MEDS: hyDRALAzine 25 mg Tablet PO ×3 (08:03→20:26)
[2021-10-05] MEDS: aspirin 81 mg EC Tablet PO (08:03)
--- NOTE | 2021-10-05 08:41 | PM.PN ---
Subjective Subjective: Mr. Hammonds feels a little better today. Improved shortness of breath, improved lower extremity edema, close to his baseline now. Robust amount of urine output of 3 L yesterday. Creatinine is still increasing little bit. No other overt uremic symptoms. Vitals/I&O/Wt Last Vital Signs Temp 97.5 F L 10/05/21 08:00 Pulse 88 10/05/21 08:03 Resp 15 10/05/21 08:00 BP 149/97 10/05/21 08:00 Pulse Ox 98 10/05/21 08:00 10/04/21 10/05/21 10/05/21 22:59 06:59 14:59 Intake Total 511.435 / 1343.255 100 / 1443.255 400 / 400 Output Total 1200 / 2300 1150 / 3450 600 / 600 Balance -688.565 / -956.745 -1050 / -2006.745 -200 / -200 Weight last 48 hrs Weight 84.595 kg Weight 87.906 kg Physical Exam Narrative: Constitutional: Awake, comfortable HEENT: Wet mucosa, no jvp, non icteric Lungs: Bilaterally basal rales CVS: S1 S2, no murmurs Abdo: Soft, BS ok Ext 4: 2-3+ edema, peripheral perfusion with no cyanosis Neurological: Grossly non-focal Data : 10/05/21 05:00 10/05/21 05:00 Micro: Microbiology 10/02/21 16:44 Blood Culture - Preliminary Blood Staphylococcus sp coag neg A&P Assessment and plan (1) CKD (chronic kidney disease) stage 4, GFR 15-29 ml/min: Status: Acute Plan 1. Acute on chronic renal failure, now progressed to ESRD It is now likely that he is progressed to end-stage renal disease. No improvement with venous decompression and Dobutrex gtt Tunneled line in the am Dialysis tomorrow; initiation prescription Strict I's and O's Dose medication for GFR less than 15 Avoid usual's 2. Hypertension Better No changes to meds On Dubtrex Cardiology input appreciated from Dr Alvarado 3. Chemistry Relatively minor noncritical aberration includes acidosis. Hold Sodium Bicarb given need to avoid sodium loading 4. Dispo licensing manager to set up outpatient dialysis, ok for DC when this is organized D/w Jeannette his daughter at [phone]. Thank you for consultation, it is a pleasure to follow these cases with you Exam and interview performed with aid of bedside RN using telemedicine Time spent 20 min inc > 50% of time in face to face counseling Daniel Wadsworth MD [facility] [phone] Attestations Medical Necessity Statement*: eval for ESRD Coding Level of Care Code Acute Button Maker And Installer for Chg Fwd Diagnoses CKD (chronic kidney disease) stage 4, GFR 15-29 ml/min N18.4
--- NOTE | 2021-10-05 09:54 | PC.CHAP ---
Pastoral Care Encounter/Spiritual Assessment Type of Contact [] Declined business english instructor visit [] Patient/Family/Request visit [] Outpatient visit [] Follow-up visit [] Physician referral [] Code/Alert [x] Routine visit [] Staff referral [] Actively dying [] Patient sleeping [] Family support [] [] Out of room [] Palliative care [] [] Receiving care in room [] Pre-surgical visit [] Trauma [] Long length of stay [x] ICU visit [] Other: Relational/Emotional Strength [] Patient feels connected with others/family/visitors/staff [] Distress [] Loneliness/isolation [] Abandonment Spirituality of Patient [] Person of [place] [] Attends Amish of their [place] [] Believes in Prayer [] Reads Bible or Nondenominational materials [] There are Spiritual issues to be addressed Coning Machine Operator Interventions [x] Prayer [x] Active listening [x] Non-anxious presence [x] Spiritual/emotional support [] Crisis/trauma care [] Spiritual counseling [] Bereavement support [] Provided bereavement packet [] Provided Bible/devotional materials [] Provided toy/stuffed animal, coloring book to patient or family member [] Provided Communion [] Anointing/[place] [] Salvation [x] Completed spiritual assessment [] Other: Impact on Illness or Injury [] Angry [] Fearful [] Anxious [] Often cries [] Exhaustion [] Unable to work [] Unable to attend alevism [] Unable to walk/stand [] Unable to read [] Unable to drive [] Unable to eat/drink [] Unable to sleep [] Unable to be with family [] Patient intubated [] Other: Summary patient resting.. Time spent with patient 5 min
--- NOTE | 2021-10-05 10:23 | PC.SOCIAL ---
IMM update pg 2 of IMM updated and reviewed w/ patient. Copy provided and Copy placed in chart.
--- NOTE | 2021-10-05 11:27 | PM.PN ---
Subjective Subjective: Patient was seen this morning, had a uneventful night, he feels better, he is on room air, agreeable for dialysis tomorrow morning and dialysis catheter placement Vitals/I&O/Wt Last Vital Signs Temp 98 F 10/05/21 10:00 Pulse 90 10/05/21 10:00 Resp 21 H 10/05/21 10:00 BP 156/106 10/05/21 10:00 Pulse Ox 100 10/05/21 10:00 10/04/21 10/05/21 10/05/21 22:59 06:59 14:59 Intake Total 511.435 / 1343.255 100 / 1443.255 500 / 500 Output Total 1200 / 2300 1150 / 3450 800 / 800 Balance -688.565 / -956.745 -1050 / -2006.745 -300 / -300 Weight last 48 hrs Weight 84.595 kg Weight 87.906 kg Physical Exam Const: COMMON NORMALS: no acute distress and patient oriented x3 Resp: COMMON NORMALS: normal respiratory effort, No retractions, No use of accessory muscles and clear to auscultation bilaterally AUSCULTATION: clear to auscultation bilaterally Cardio: COMMON NORMALS: regular rate, regular rhythm, S1 normal heart sound present and S2 normal heart sound present RATE: regular rate RHYTHM: regular rhythm HEART SOUNDS: S1 normal heart sound present and S2 normal heart sound present GI: COMMON NORMALS: Normal to inspection, nondistended, normoactive bowel sounds present, Soft to palpation and non-tender PALPATION: Yes Soft to palpation Extremity: NARRATIVE EXTREMITY EXAM: Nonpitting edema Neuro: COMMON NORMALS: patient oriented x3 Psych: COMMON NORMALS: mental status grossly normal Data : 10/05/21 05:00 10/05/21 05:00 Micro: Microbiology 10/05/21 09:30 Blood Culture - Preliminary Blood SPECIMEN COLLECTED 10/05/21 09:31 Blood Culture - Preliminary Blood SPECIMEN COLLECTED 10/02/21 16:44 Blood Culture - Preliminary Blood Staphylococcus sp coag neg A&P Assessment and plan (1) Volume overload: Status: Acute (2) CHF exacerbation: Status: Acute (3) Acute kidney injury superimposed on CKD: Status: Acute (4) CKD (chronic kidney disease) stage 4, GFR 15-29 ml/min: Status: Acute (5) Hypertension, essential: Status: Acute (6) Acute respiratory failure with hypoxia: Status: Acute (7) Mild aortic regurgitation: Status: Acute (8) Hyperlipidemia: Status: Acute (9) Cardiomyopathy: Status: Acute (10) Systolic CHF: Status: Acute (11) Moderate pulmonary arterial systolic hypertension: Status: Acute (12) Urinary tract infection: Status: Acute Plan Acute hypoxic respiratory failure, bilateral extremity edema, fluid overload -Secondary to systolic and diastolic CHF -Also has evidence of acute on chronic renal failure CT chest 1. Comparison contrast-enhanced CT 04/13/2019. 2. Minimal pulmonary emphysema. Slight interval progression of minimal central peribronchial thickening without bronchiectasis. Otherwise no acute lung consolidation or ground-glass opacity. Scattered areas of linear scarring-atelectasis bilaterally. Mild pulmonary hyperinflation/COPD-mild chronic bronchitis probably present. 3. New small bilateral pleural effusions. 4. Coronary calcifications and other cardiovascular findings as above. 5. Slightly prominent ascending aorta and main pulmonary artery. See discussion above. 6. Small amount of perihepatic ascites and incidental right renal findings as above. Cardiac echocardiogram Severely increased left ventricular cavity size. Normal left ?ventricular wall thickness. Severely decreased left ventricular ?systolic function. Left ventricular ejection fraction is ?estimated at 20 %. Grade III/IV diastolic dysfunction ?(restrictive filling pattern), severely elevated filling ?pressures. Global left ventricular hypokinesis. ?Normal right ventricular size. Moderately decreased right ?ventricular systolic function. Moderate pulmonary hypertension, ?RVSP 59 mmHg. ?Mildly increased right atrial size. ?Mildly increased left atrial size. ?Structurally normal mitral valve. Mild mitral valve ?regurgitation. ?Structurally normal trileaflet aortic valve. No aortic valve ?stenosis. [id number] aortic valve regurgitation. Plan -Admit to ICU -Receiving Lasix 80 p.o. twice daily with metolazone -EF 20%, on dobutamine drip -Diuresed over 6 L, creatinine 8.9 -Monitor urine output, monitor creatinine, Place Baig catheter -Blood pressure control -In discussion with patient, he is agreeable for dialysis, discussed with Dr. Alvarado, plan on dialysis catheter placement on Tuesday due to or availability over the holiday weekend, n.p.o. midnight today -Full code -Heparin for DVT prophylaxis -For now I will hold his Plavix, due to dialysis catheter placement, on aspirin Acute renal failure, creatinine 8.9 , nephrology on consult, proceeding with dialysis catheter placement tomorrow NSTEMI -Statin -Aspirin 81 mg -Coreg -Cardiac echo as above Hypertensive urgency, blood pressure 172/126 -Continue Coreg, hydralazine, clonidine BPH Obstructive sleep apnea, CPAP Attestations Medical Necessity Statement*: Patient requires hospitalization for acute hypoxic respiratory failure, fluid overload, acute renal failure Coding Level of Care Code Acute Stripping Cutter And Winder for Chg Fwd Diagnoses Volume overload E87.70 CHF exacerbation I50.9 Acute kidney injury superimposed on CKD N17.9; N18.9 CKD (chronic kidney disease) stage 4, GFR 15-29 ml/min N18.4 Hypertension, essential I10 Acute respiratory failure with hypoxia J96.01 Mild aortic regurgitation I35.1 Hyperlipidemia E78.5 Cardiomyopathy I42.9 Systolic CHF I50.20 Moderate pulmonary arterial systolic hypertension I27.21 Urinary tract infection N39.0
--- NOTE | 2021-10-05 11:31 | PM.CONSULT ---
Providers/Reason For Consult Consulting Physician/Specialty*: Dr. Dhruv Alvarado, DO Reason for Consult*: Hemodialysis catheter placement Attending Physician: Anatoyl Saunders MD Primary Care Provider: Kian Colon MD History of Present Illness History of Present Illness Fredy Hammonds is a 66 year old male who is currently in the hospital renal disease. Nephrology has requested a tunneled dialysis catheter. Patient denies any pain, nausea or emesis. He has never had a dialysis catheter before. Review of Systems General: Reports: 10 or more systems reviewed and unremarkable except in HPI and below Medications/Allergies Home Medications Medication Instructions Recorded Confirmed Last Taken Type nitroglycerin 0.4 mg sublingual 0.4 mg SUBLINGUAL Q5M PRN #25 tab 06/17/20 10/02/21 Unknown Rx tablet (Nitrostat) amlodipine 10 mg tablet 10 mg PO DAILY #90 tab 06/26/20 10/02/21 01/29/21 Rx Cane #1 ea 10/03/20 10/02/21 Unknown Rx trazodone 50 mg tablet 25 mg PO DAILY #30 tab 01/26/21 10/02/21 01/28/21 Rx sildenafil 100 mg tablet 50 mg PO DAILY PRN #30 tab 04/01/21 10/02/21 Unknown Rx furosemide 40 mg tablet 40 mg PO DAILY PRN #90 tab 05/13/21 10/02/21 Unknown Rx sodium bicarbonate 650 mg tablet 650 mg PO TID #90 tab 06/20/21 10/02/21 Unknown Rx hydralazine 25 mg tablet 25 mg PO TID #90 tab 07/02/21 10/02/21 Unknown Rx carvedilol 25 mg tablet 25 mg PO BID tab 07/31/21 10/02/21 Unknown History fluticasone propionate 50 1 spray INTRANASAL BID 30 Days #16 08/05/21 10/02/21 Unknown Rx mcg/actuation nasal g spray,suspension (Flonase Allergy Relief) ipratropium 20 mcg-albuterol 100 1 puff INHALATION Q4H PRN 30 Days 08/05/21 10/02/21 Unknown Rx mcg/actuation mist for inhalation #4 g (Combivent Respimat) umeclidinium 62.5 mcg-vilanterol 1 inh INHALATION DAILY 60 Days #60 08/07/21 10/02/21 Unknown Rx 25 mcg/actuation powdr for ea inhalation (Anoro Ellipta) colchicine 0.6 mg tablet 0.6 mg PO DAILY #14 tab 09/09/21 10/02/21 Unknown Rx triamcinolone acetonide 0.5 % 1 applic TOPICAL DAILY #15 g 09/09/21 10/02/21 Unknown Rx topical cream albuterol sulfate 2.5 mg INHALATION QID PRN 10/02/21 10/02/21 Unknown History clopidogrel 75 mg tablet 75 mg PO DAILY 10/02/21 10/02/21 Unknown History Allergies Allergy/AdvReac Type Severity Reaction Status Date / Time No Known Allergies Allergy Verified 10/02/21 11:44 Current Medications Generic Name Dose Route Start Last Admin Trade Name Freq PRN Reason Stop Dose Admin Acetaminophen 650 mg 10/02/21 17:00 10/02/21 17:46 Acetaminophen 325 Mg Tablet PO 650 mg Q6H PRN Administration Mild/Mod Pain Or Temp >/= 101 Hydrocodone Bitart/Acetaminophen 1 tab 10/04/21 15:28 10/04/21 15:37 Hydrocodone-Acetaminophen 5-325 Mg Tablet PO 1 tab Q8H PRN Administration MODERATE PAIN Albuterol/Ipratropium 3 ml 10/02/21 17:00 10/05/21 07:49 Ipratropium-Albuterol 3 Ml Neb INHALATION 3 ml QID.RESPIRATORY VENUS Administration Aspirin 81 mg 10/02/21 17:00 10/05/21 08:03 Aspirin 81 Mg Ec Tablet PO 81 mg DAILY VENUS Administration Carvedilol 25 mg 10/02/21 18:00 10/05/21 08:03 Carvedilol 25 Mg Tablet PO 25 mg BID VENUS Administration Heparin Sodium (Porcine) 5,000 unit 10/02/21 18:00 10/05/21 05:32 Heparin 5,000 Unit/Ml Inj 1 Ml SUBCUT 5,000 unit Q12H VENUS Administration Hydralazine HCl 25 mg 10/02/21 17:00 10/05/21 08:03 Hydralazine 25 Mg Tablet PO 25 mg TID VENUS Administration Dobutamine HCl/Dextrose 500 mg in 250 mls @ 0 mls/hr 10/02/21 17:00 10/04/21 20:53 Dobutamine Drip IV 2 mcg/kg/min .Q0M VENUS 5.36 mls/hr Administration Protocol Per Protocol Ceftriaxone Sodium 1,000 mg/ 50 mls @ 100 mls/hr 10/03/21 07:45 10/05/21 08:01 Sodium Chloride IV 100 mls/hr Q24H VENUS Administration Protocol Metolazone 5 mg 10/02/21 15:50 10/05/21 08:02 Metolazone 5 Mg Tablet PO 5 mg BID VENUS Administration Pantoprazole Sodium 40 mg 10/02/21 17:00 10/04/21 17:10 Pantoprazole 40 Mg Sdv IVP 40 mg Q24H VENUS Administration Trazodone HCl 25 mg 10/03/21 21:00 10/04/21 20:34 Trazodone 50 Mg Tablet PO 25 mg BEDTIME VENUS Administration PFSH Acute PFSH: Medical History Allergic reaction Anemia in chronic kidney disease (CKD) BPH NOS w ur obs/LUTS Cardiomyopathy CAD with stent in LAD Cellulitis CHF exacerbation Combined D/S CHF CKD (chronic kidney disease) stage 4, GFR 15-29 ml/min COPD exacerbation Elevated PSA End stage renal disease Erectile dysfunction Gout attack History of pulmonary embolism Hyperkalemia Hyperlipidemia Hypersomnolence Hypertension, essential Insomnia Ischemic cardiomyopathy Left shoulder pain Mild aortic regurgitation Mild aortic stenosis 12/07/2018: Mean gradient 4.6 mmHg, aortic valve area 2.2 cm? Moderate pulmonary arterial systolic hypertension Respiratory distress Smoking Quit 2020 Stasis dermatitis of lower extremity due to chronic peripheral vascular hypertension Tear of left rotator cuff Surgical History H/O abdominal surgery hernia History of ankle surgery History of back surgery Postoperative state Family History Family/Other Cancer Mother Dementia Diabetes Sister Diabetes CAD (coronary artery disease) Father , AT AGE 78 Brain aneurysm Denies family history of Clotting disorder Hyperlipidemia Psychiatric illness Chronic kidney disease (CKD) Suicide Anesthesia complication Bleeding disorder Family history of premature coronary artery disease Lung disease Hypertension Stroke Social History Smoking and tobacco status: former smoker Quit status (tobacco): has quit using tobacco Year quit tobacco: 2020 Former quit date comment: 0.5 ppd X 15 years Alcohol intake: current Alcohol intake frequency: few times a month Marital status: Current occupational status: disabled History of recent travel: No Vitals/I&O/Wt Last Vital Signs Temp 98 F 10/05/21 10:00 Pulse 90 10/05/21 10:00 Resp 21 H 10/05/21 10:00 BP 156/106 10/05/21 10:00 Pulse Ox 100 10/05/21 10:00 10/04/21 10/05/21 10/05/21 22:59 06:59 14:59 Intake Total 511.435 / 1343.255 100 / 1443.255 500 / 500 Output Total 1200 / 2300 1150 / 3450 800 / 800 Balance -688.565 / -956.745 -1050 / -2006.745 -300 / -300 Weight last 48 hrs Weight 186 lb 8 oz Weight 193 lb 12.8 oz Physical Exam Narrative: General : Patient is well developed , no acute distress, oriented x3 Head : Normal cephalic, a-traumatic. Ears : Pinnae and external canal are normal. Hearing is normal. Eyes : PERRLA, Sclera and injection are normal. No conjunctival discharge. Nose : Mucous membranes are without erythema. Throat : buccal mucosa is normal, gums are without significant recession or hypertrophy. Lungs : Equal chest rise bilaterally, no use of accessory muscles, trachea is midline. Cor : Rate and rhythm are normal. Abdomen : Soft, ND, NT, no g/r/m Extremities : No edema, no cyanosis or clubbing, dorsalis pedis pulses are present bilaterally, non-tender to palpation of calves. Upper extremities are normal bilaterally. Back : non-tender to palpation, no CVA tenderness. Neuro : CN II - XII intact, Upper and lower extremities have equal and full strength Data : 10/05/21 05:00 10/05/21 05:00 Micro: Microbiology 10/05/21 09:30 Blood Culture - Preliminary Blood SPECIMEN COLLECTED 10/05/21 09:31 Blood Culture - Preliminary Blood SPECIMEN COLLECTED 10/02/21 16:44 Blood Culture - Preliminary Blood Staphylococcus sp coag neg A&P Assessment and plan (1) Acute kidney injury superimposed on CKD: Status: Acute Plan Permacath placement tomorrow N.p.o. after midnight The risks and benefits of the procedure, including but not limited to, bleeding, infection, pneumothorax requiring thoracostomy tube, damage to surrounding structures, scar, numbness, pain, were explained to the patient. He is understanding of the risks and wishes to proceed Coding Level of Care Code Acute Shrimp Boat Captain for Chg Fwd Diagnoses Acute kidney injury superimposed on CKD N17.9; N18.9
[2021-10-05] MEDS: FUROsemide 40 mg Tablet 80 MG PO (15:28)
[2021-10-05] MEDS: pantoprazole 40 mg SDV IVP (17:13)
[2021-10-05] MEDS: HYDROcodone-acetaminophen 5-325 mg Tablet 1 TAB PO (17:15)
--- NOTE | 2021-10-05 19:07 | PC.NURSE ---
SHift Summary: uneventful shift, patient rested in bed for most of the day, but were were able to get him to a chair for dinner. Patient has adhered to fluid restriction and has had 1000 mL in during day shift. Output has been 1875. Swelling in the legs continues to improve but is still present. Patient continues to be nervous about catheter placement and future lifestyle changes due to dialysis.
[2021-10-05] MEDS: trazodone 50 mg Tablet 25 MG PO (20:26)
[2021-10-06] VITALS (49 sets, daily range): BP systolic 115–172; BP diastolic 78–119; PULSE 82–102; RESP 5–24; TEMP 36.5–36.8; O2SAT 94–100
--- NOTE | 2021-10-06 | SCC_ITS ---
Procedure done: Permacath placement 8.8 seconds of fluoroscopic guidance, for a cumulative dose of 1.53 mGy, was provided to Dr. Alvarado by the radiology department. C-arm images of the chest were saved for the patient's permanent record. [facility]
[2021-10-06 06:22] LABS: Basophils % 0.4 %; Eosinophils # 0.1 10^3/uL (0.0-0.8); Eosinophils % 0.9 %; Hematocrit 29.3 % (42.0-52.0); Hemoglobin 9.5 g/dL (11.7-16.6); Lymphocytes # 0.8 10^3/uL (0.8-4.8); Lymphocytes % 9.7 %; Mean Corpuscular HGB Conc 32.4 g/dL (30.0-36.0); Mean Corpuscular Hemoglobin 28.4 pg (28.0-34.0); Mean Corpuscular Volume 87.7 fl (80-94); Mean Platelet Volume 12.2 fL (7.4-10.4); Monocytes # 0.9 10^3/uL (0.2-0.9); Monocytes % 10.6 %; Neutrophils # 6.65 10^3/uL (1.8-7.7); Neutrophils % 77.9 %; Nucleated Red Blood Cells % 0 %; Platelet Count 216 10^3/cmm (130-400); Red Blood Count 3.34 10^6/uL (4.1-5.3); Red Cell Distribution Width 18.1 % (12.1-15.1); White Blood Count 8.5 10^3/uL (4.0-10.0)
--- NOTE | 2021-10-06 07:51 | PM.PN ---
Subjective Subjective: Fredy is covered up in bed this morning. The blanket is over his head. He seems relatively uninterested in talking. His dialysis catheter placement is scheduled for later this morning. Dialysis thereafter. No real changes. His edema continues to improve slightly. Shortness of breath is improved. He is able to nearly lie flat. He has good urine output. He had over 4300 mL of urine output yesterday. Balance is -3035 mL. His creatinine, however, continues to increase. Today it is 8.9. Vitals/I&O/Wt Last Vital Signs Temp 97.8 F 10/06/21 05:00 Pulse 94 10/06/21 06:00 Resp 18 10/06/21 06:00 BP 134/99 10/06/21 05:00 Pulse Ox 99 10/06/21 06:00 10/05/21 10/06/21 10/06/21 22:59 06:59 14:59 Intake Total 480 / 1270 Output Total 955 / 2555 1400 / 3955 350 / 350 Balance -475 / -1285 -1400 / -2685 -350 / -350 Weight last 48 hrs Weight 184 lb Weight 186 lb 8 oz Physical Exam Narrative: GENERAL: In general he is quiet then seems somewhat depressed HEENT: Exam within normal limits. NECK: Supple without jugular vein distention. The carotid upstroke is normal without bruits. BACK: Exam normal. LUNGS: Clear. HEART: Regular rate and rhythm. ABDOMEN: Benign without organomegaly or tenderness. EXTREMITIES: 1+ edema NEUROLOGIC: Exam normal. SKIN: Unremarkable. Data : 10/06/21 05:45 10/05/21 05:00 Micro: Microbiology 10/05/21 09:30 Blood Culture - Preliminary Blood SPECIMEN COLLECTED 10/05/21 09:31 Blood Culture - Preliminary Blood SPECIMEN COLLECTED A&P Assessment and plan (1) End stage renal disease: Status: Acute (2) Systolic CHF: Status: Acute (3) Hyperlipidemia: Status: Acute (4) Mild aortic regurgitation: Status: Acute (5) Volume overload: Status: Acute (6) CHF exacerbation: Status: Acute (7) Hypertension, essential: Status: Acute (8) Cardiomyopathy: Status: Acute (9) Obstructive sleep apnea: Status: Acute (10) Emphysema lung: Status: Acute (11) Moderate pulmonary arterial systolic hypertension: Status: Acute (12) Cardiomyopathy: Status: Acute Qualifiers: Cardiomyopathy type: dilated Qualified Code(s): I42.0 - Dilated cardiomyopathy Plan I would continue the dobutamine until tomorrow morning. We can then adjust his medications. No changes today. Attestations Medical Necessity Statement*: Continued hospitalization for management of cardiomyopathy, congestive heart failure, end-stage renal disease in need of dialysis. Coding Level of Care Code Acute Assistant Vice President for [facility] Fwd Diagnoses End stage renal disease N18.6 Systolic CHF I50.20 Hyperlipidemia E78.5 Mild aortic regurgitation I35.1 Volume overload E87.70 CHF exacerbation I50.9 Hypertension, essential I10 Cardiomyopathy I42.9 Obstructive sleep apnea G47.33 Emphysema lung J43.9 Moderate pulmonary arterial systolic hypertension I27.21 Cardiomyopathy I42.0 Cardiomyopathy type: dilated
[2021-10-06] MEDS: ipratropium-albuterol 3 mL Neb INHALATION ×3 (08:00→20:00)
[2021-10-06] MEDS: HYDROcodone-acetaminophen 5-325 mg Tablet 1 TAB PO ×2 (08:01→18:30)
[2021-10-06] MEDS: carvedilol 25 mg Tablet PO ×2 (08:02→17:47)
[2021-10-06] MEDS: aspirin 81 mg EC Tablet PO (08:02)
[2021-10-06] MEDS: hyDRALAzine 25 mg Tablet PO ×2 (08:02→20:54)
[2021-10-06] MEDS: FUROsemide 40 mg Tablet 80 MG PO ×2 (08:02→16:12)
[2021-10-06] MEDS: metOLazone 5 MG Tablet PO ×2 (08:03→17:47)
[2021-10-06 08:31] LABS: Alanine Aminotransferase 21 U/L (0-41); Albumin Level 2.4 g/dL (3.5-5.2); Alkaline Phosphatase 106 IU/L (40-130); Anion Gap 24.4 (5-19); Aspartate Amino Transferase 38 U/L (0-40); Calcium 6.4 mg/dL (8.5-10.5); Carbon Dioxide 15 mmol/L (22-29); Chloride 104 mmol/L (98-107); Globulin 3.5 g/dL (1.3-4.6); Glucose 109 mg/dL (65-115); Magnesium 1.8 mg/dL (1.7-2.3); Osmolality Calculated 314 mOsm/kg (285-295); Phosphorus 6.3 mg/dL (2.5-4.5); Potassium 4.4 mmol/L (3.5-5.1); Sodium 139 mmol/L (136-145); Total Bilirubin 0.2 mg/dL (0.15-1.2); Total Protein 5.9 g/dL (6.6-8.7)
[2021-10-06 08:33] LABS: INR 1.04 (0.8-1.2)
[2021-10-06 08:35] LABS: Blood Urea Nitrogen 84 mg/dL (8-23)
[2021-10-06] MEDS: cefTRIAXone 1,000 MG in sodium chloride 0.9% (plus) 50 ML 100 MG IV (08:55)
--- NOTE | 2021-10-06 09:29 | PM.PN ---
Subjective Subjective: No new issues with Mr. Hammonds today. Continues to have robust urine output. No overt uremic symptoms. His swelling and edema is getting back to baseline. Pending dialysis catheter placement today. Remains on Dobutrex infusion, blood pressure now nicely controlled. Vitals/I&O/Wt Last Vital Signs Temp 97.8 F 10/06/21 05:00 Pulse 94 10/06/21 08:17 Resp 20 H 10/06/21 08:17 BP 133/102 10/06/21 08:17 Pulse Ox 95 10/06/21 08:17 10/05/21 10/06/21 10/06/21 22:59 06:59 14:59 Intake Total 480 / 1270 192.245 / 192.245 Output Total 955 / 2555 1400 / 3955 475 / 475 Balance -475 / -1285 -1400 / -2685 -282.755 / -282.755 Weight last 48 hrs Weight 83.461 kg Weight 84.595 kg Physical Exam Narrative: Constitutional: Awake, comfortable HEENT: Wet mucosa, no jvp, non icteric Lungs: Bilaterally basal rales CVS: S1 S2, no murmurs Abdo: Soft, BS ok Ext 4: 2-3+ edema, peripheral perfusion with no cyanosis Neurological: Grossly non-focal Data : 10/06/21 05:45 10/06/21 05:25 Micro: Microbiology 10/05/21 09:30 Blood Culture - Preliminary Blood SPECIMEN COLLECTED 10/05/21 09:31 Blood Culture - Preliminary Blood SPECIMEN COLLECTED A&P Assessment and plan (1) CKD (chronic kidney disease) stage 4, GFR 15-29 ml/min: Status: Acute Plan 1. Acute on chronic renal failure, now progressed to ESRD It is now likely that he is progressed to end-stage renal disease. No improvement with venous decompression and Dobutrex gtt Tunneled line pending Dialysis today, 2hrs, 2.5hrs tomorrow training project manager to set up outpatient Strict I's and O's Dose medication for GFR less than 15 Avoid usual's 2. Hypertension Better No changes to meds On Dubtrex Cardiology input appreciated from Dr Alvarado 3. Chemistry Dialysis will correct 4. CKD-MB Will add calcitriol check PTH add Phoslo with meals 5. Dispo training project manager to set up outpatient dialysis, ok for DC when this is organized D/w Jeannette his daughter at bedside today Thank you for consultation, it is a pleasure to follow these cases with you Exam and interview performed with aid of bedside RN using telemedicine Time spent 20 min inc > 50% of time in face to face counseling Daniel Wadsworth MD [facility]al [facility] [phone] Attestations Medical Necessity Statement*: new renal failure Coding Level of Care Code Acute Lawn Sprinkler Installer for Chg Fwd Diagnoses CKD (chronic kidney disease) stage 4, GFR 15-29 ml/min N18.4
--- NOTE | 2021-10-06 11:03 | P.ANESASSM_ITS ---
Pre-Anesthetic Assessment Height/Weight: Height 1.73 m Weight 83.461 kg Temp Pulse Resp BP Pulse Ox 97.8 F 91 17 128/94 100 10/06/21 05:00 10/06/21 11:02 10/06/21 11:02 10/06/21 11:02 10/06/21 11:02 Preop Diagnosis: Rotator cuff tear Left shoulder Operation Date: 10/06/21 11:00 Proposed Procedures p Dialysis Catheter Insertion(Right) - DO Renan Mejia anesthetic complications: None Was Beta Aggie taken within 24 hours: Yes Was Clonidine taken within 24 hours: N/A Last intake: > 8 hrs Social No alcohol and No tobacco Airway Mallampati: Class III Dentition: other (mulitple missing, poor dentition) Pulmonary Chronic Obstructive Pulmonary Disease and Sleep Apnea mod pulm HTN,mild AVR, off dobutamine CV/HEM Congestive Heart Failure (EF 20%) and Hypertension Echo 2021 CONCLUSIONS ?Severely increased left ventricular cavity size. Normal left ?ventricular wall thickness. Severely decreased left ventricular ?systolic function. Left ventricular ejection fraction is ?estimated at 20 %. Grade III/IV diastolic dysfunction ?(restrictive filling pattern), severely elevated filling ?pressures. Global left ventricular hypokinesis. ?Normal right ventricular size. Moderately decreased right ?ventricular systolic function. Moderate pulmonary hypertension, ?RVSP 59 mmHg. ?Mildly increased right atrial size. ?Mildly increased left atrial size. ?Structurally normal mitral valve. Mild mitral valve ?regurgitation. ?Structurally normal trileaflet aortic valve. No aortic valve ?stenosis. [id number] aortic valve regurgitation. Chronic Renal Failure ALBERTO Anesthetic Plan ASA status: 4 Anesthesia: MAC Risk of > 500 ml blood loss (7ml/kg in children): No Medications/Allergies Home Medications Medication Instructions Recorded Confirmed Last Taken Type nitroglycerin 0.4 mg sublingual 0.4 mg SUBLINGUAL Q5M PRN #25 tab 06/17/20 10/02/21 Unknown Rx tablet (Nitrostat) amlodipine 10 mg tablet 10 mg PO DAILY #90 tab 06/26/20 10/02/21 01/29/21 Rx Cane #1 ea 10/03/20 10/02/21 Unknown Rx trazodone 50 mg tablet 25 mg PO DAILY #30 tab 01/26/21 10/02/21 01/28/21 Rx sildenafil 100 mg tablet 50 mg PO DAILY PRN #30 tab 04/01/21 10/02/21 Unknown Rx furosemide 40 mg tablet 40 mg PO DAILY PRN #90 tab 05/13/21 10/02/21 Unknown Rx sodium bicarbonate 650 mg tablet 650 mg PO TID #90 tab 06/20/21 10/02/21 Unknown Rx hydralazine 25 mg tablet 25 mg PO TID #90 tab 07/02/21 10/02/21 Unknown Rx carvedilol 25 mg tablet 25 mg PO BID tab 07/31/21 10/02/21 Unknown History fluticasone propionate 50 1 spray INTRANASAL BID 30 Days #16 08/05/21 10/02/21 Unknown Rx mcg/actuation nasal g spray,suspension (Flonase Allergy Relief) ipratropium 20 mcg-albuterol 100 1 puff INHALATION Q4H PRN 30 Days 08/05/21 10/02/21 Unknown Rx mcg/actuation mist for inhalation #4 g (Combivent Respimat) umeclidinium 62.5 mcg-vilanterol 1 inh INHALATION DAILY 60 Days #60 08/07/21 10/02/21 Unknown Rx 25 mcg/actuation powdr for ea inhalation (Anoro Ellipta) colchicine 0.6 mg tablet 0.6 mg PO DAILY #14 tab 09/09/21 10/02/21 Unknown Rx triamcinolone acetonide 0.5 % 1 applic TOPICAL DAILY #15 g 09/09/21 10/02/21 Unknown Rx topical cream albuterol sulfate 2.5 mg INHALATION QID PRN 10/02/21 10/02/21 Unknown History clopidogrel 75 mg tablet 75 mg PO DAILY 10/02/21 10/02/21 Unknown History Allergies Allergy/AdvReac Type Severity Reaction Status Date / Time No Known Allergies Allergy Verified 10/02/21 11:44 Current Medications Generic Name Dose Route Start Last Admin Trade Name Freq PRN Reason Stop Dose Admin Acetaminophen 650 mg 10/02/21 17:00 10/02/21 17:46 Acetaminophen 325 Mg Tablet PO 650 mg Q6H PRN Administration Mild/Mod Pain Or Temp >/= 101 Hydrocodone Bitart/Acetaminophen 1 tab 10/04/21 15:28 10/06/21 08:01 Hydrocodone-Acetaminophen 5-325 Mg Tablet PO 1 tab Q8H PRN Administration MODERATE PAIN Albuterol/Ipratropium 3 ml 10/02/21 17:00 10/06/21 08:00 Ipratropium-Albuterol 3 Ml Neb INHALATION 3 ml QID.RESPIRATORY VENUS Administration Aspirin 81 mg 10/02/21 17:00 10/06/21 08:02 Aspirin 81 Mg Ec Tablet PO 81 mg DAILY VENUS Administration Carvedilol 25 mg 10/02/21 18:00 10/06/21 08:02 Carvedilol 25 Mg Tablet PO 25 mg BID VENUS Administration Furosemide 80 mg 10/05/21 16:00 10/06/21 08:02 Furosemide 40 Mg Tablet PO 80 mg BID@08,16 VNEUS Administration Heparin Sodium (Porcine) 5,000 unit 10/02/21 18:00 10/06/21 06:06 Heparin 5,000 Unit/Ml Inj 1 Ml SUBCUT Not Given Q12H VENUS Hydralazine HCl 25 mg 10/02/21 17:00 10/06/21 08:02 Hydralazine 25 Mg Tablet PO 25 mg TID VENUS Administration Ceftriaxone Sodium 1,000 mg/ 50 mls @ 100 mls/hr 10/03/21 07:45 10/06/21 09:49 Sodium Chloride IV Infused Q24H VENUS Infusion Protocol Metolazone 5 mg 10/02/21 15:50 10/06/21 08:03 Metolazone 5 Mg Tablet PO 5 mg BID VENUS Administration Pantoprazole Sodium 40 mg 10/02/21 17:00 10/05/21 17:13 Pantoprazole 40 Mg Sdv IVP 40 mg Q24H VENUS Administration Trazodone HCl 25 mg 10/03/21 21:00 10/05/21 20:26 Trazodone 50 Mg Tablet PO 25 mg BEDTIME VENUS Administration PFSH Anesthesia Medical History Allergic reaction Anemia in chronic kidney disease (CKD) BPH NOS w ur obs/LUTS Cardiomyopathy CAD with stent in LAD Cellulitis CHF exacerbation Combined D/S CHF CKD (chronic kidney disease) stage 4, GFR 15-29 ml/min COPD exacerbation Elevated PSA End stage renal disease Erectile dysfunction Gout attack History of pulmonary embolism Hyperkalemia Hyperlipidemia Hypersomnolence Hypertension, essential Insomnia Ischemic cardiomyopathy Left shoulder pain Mild aortic regurgitation Mild aortic stenosis 12/07/2018: Mean gradient 4.6 mmHg, aortic valve area 2.2 cm? Moderate pulmonary arterial systolic hypertension Respiratory distress Smoking Quit 2020 Stasis dermatitis of lower extremity due to chronic peripheral vascular hy pertension Tear of left rotator cuff Surgical History H/O abdominal surgery hernia History of ankle surgery History of back surgery Postoperative state Family History Family/Other Cancer Mother Dementia Diabetes Sister Diabetes CAD (coronary artery disease) Father , AT AGE 78 Brain aneurysm Denies family history of Clotting disorder Hyperlipidemia Psychiatric illness Chronic kidney disease (CKD) Suicide Anesthesia complication Bleeding disorder Family history of premature coronary artery disease Lung disease Hypertension Stroke Social History Smoking and tobacco status: former smoker Quit status (tobacco): has quit using tobacco Year quit tobacco: 2020 Former quit date comment: 0.5 ppd X 15 years Alcohol intake: current Alcohol intake frequency: few times a month Marital status: Current occupational status: disabled History of recent travel: No Data Anesthesia : 10/06/21 05:45 10/06/21 05:25 Short CBC 10/05/21 10/06/21 Range/Units 05:00 05:45 WBC 7.9 8.5 (4.0-10.0) 10^3/uL Hgb 9.1 L 9.5 L (11.7-16.6) g/dL Hct 27.9 L 29.3 L (42.0-52.0) % MCV 88.9 87.7 (80-94) fl Plt Count 211 216 (130-400) 10^3/cmm Neut % (Auto) 77.0 77.9 % Neut # (Auto) 6.07 6.65 (1.8-7.7) 10^3/uL BMP 10/05/21 10/06/21 05:00 05:25 Sodium 139 139 Potassium 4.5 4.4 Chloride 107 104 Carbon Dioxide 17 L 15 L BUN 86 H* 84 H* Creatinine 8.9 H* 9.2 H* Glucose 137 H 109 Calcium 6.4 L 6.4 L Cardiac Enzymes 10/05/21 Range/Units 05:00 Creatine Kinase 158 (39-308) U/L NT-Pro-B Natriuret Pep > 61876 H (0-125) pg/mL Liver Function 10/05/21 10/06/21 Range/Units 05:00 05:25 Total Bilirubin 0.2 0.2 (0.15-1.2) mg/dL AST 40 38 (0-40) U/L ALT 22 21 (0-41) U/L Alkaline Phosphatase 103 106 (40-130) IU/L Albumin 2.4 L 2.4 L (3.5-5.2) g/dL Coags 10/05/21 10/06/21 05:00 05:25 PT 14.00 13.90 INR 1.05 1.04 Microbiology 10/05/21 09:31 Blood Culture - Preliminary Blood NEGATIVE TO DATE 10/05/21 09:30 Blood Culture - Preliminary Blood NEGATIVE TO DATE Cardiac Studies: Echocardiogram 10/02/21 Echocardiogram Ultrasound 06/18/20 Sestamibi Stress Test (Cardiology) 06/19/20
--- NOTE | 2021-10-06 11:03 | W.PM.OPSUD ---
Surgery/Procedure H&P Update DATE OF PROCEDURE: October 06, 2021 DATE H&P PERFORMED: 10/05/21 CHANGES TO PREVIOUS DOCUMENTATION: NONE PREOP DIAGNOSIS: End stage renal disease PLANNED PROCEDURE: Operation Date: 10/06/21 11:00 Proposed Procedures p Dialysis Catheter Insertion(Right) - Dhruv Alvarado DO
--- NOTE | 2021-10-06 11:07 | SC_ITS ---
WS: [id number] C-arm fluoroscopy, dialysis catheter insertion, 10/06/2021 Clinical Data: DIALYSIS CATHETER Comparison: None. Findings: A dialysis catheter has been inserted via the right internal jugular vein and it ends at the cava atr ial junction. SC/C-arm FL for CVA [id number] Impression: Insertion right dialysis catheter.
--- NOTE | 2021-10-06 11:26 | PC.NURSE ---
Transport to Surgery Pt left for surgery @1130 via hospital bed.
--- NOTE | 2021-10-06 12:11 | PC.CHAP ---
Pastoral Care Encounter/Spiritual Assessment Type of Contact [] Declined sand system operator visit [] Patient/Family/Request visit [] Outpatient visit [] Follow-up visit [] Physician referral [] Code/Alert [x] Routine visit [] Staff referral [] Actively dying [] Patient sleeping [x] Family support [] [] Out of room [] Palliative care [] [] Receiving care in room [] Pre-surgical visit [] Trauma [] Long length of stay [x] ICU visit [] Other: Relational/Emotional Strength [] Patient feels connected with others/family/visitors/staff [] Distress [] Loneliness/isolation [] Abandonment Spirituality of Patient [] Person of Shamika [] Attends Restorationist of their Shamika [] Believes in Prayer [] Reads Bible or Restoration materials [] There are Spiritual issues to be addressed Pet Trainer Interventions [x] Prayer [x] Active listening [x] Non-anxious presence [x] Spiritual/emotional support [] Crisis/trauma care [] Spiritual counseling [] Bereavement support [] Provided bereavement packet [] Provided Bible/devotional materials [] Provided toy/stuffed animal, coloring book to patient or family member [] Provided Communion [] Anointing/[place] [] Salvation [] Completed spiritual assessment [] Other: Impact on Illness or Injury [] Angry [] Fearful [] Anxious [] Often cries [] Exhaustion [] Unable to work [] Unable to attend yazidism [] Unable to walk/stand [] Unable to read [] Unable to drive [] Unable to eat/drink [] Unable to sleep [] Unable to be with family [] Patient intubated [] Other: Summary family resent..patient responds friendlier ... daughter and x- encouraging to follow treatment Time spent with patient 10 min x
[2021-10-06] MEDS: heparin, porcine 1,000 unit/mL INJ 10 mL 10000 UNIT INJECTION (12:28)
--- NOTE | 2021-10-06 12:37 | XRR_ITS ---
PROCEDURE INFORMATION: Exam: XR Chest Exam date and time: 10/06/2021 1:44 PM Age: 66 years old Clinical indication: Device placement; Prior surgery; Surgery date: Post-operative (0-2 days); Surgery type: Post permacath placement on RT side; Additional info: S/P permacath placement TECHNIQUE: Imaging protocol: Radiologic exam of the chest. Views: 1 view. COMPARISON: CT chest [facility] [id number] 10/02/2021 4:01 PM FINDINGS: Tubes, catheters and devices: A large bore right central line is present extending into the right atrium Lungs: Pleural thickening is seen in the minor fissure. Atelectasis is seen in the left upper lobe. No consolidation. Pleural spaces: Unremarkable. No pleural effusion. No pneumothorax. Heart/Mediastinum: Unremarkable. No cardiomegaly. Bones/joints: Unremarkable. XR/XR chest 1V portable [id number] IMPRESSION: 1. No acute findings. 2. Right central line in the right atrium 3. Pleural thickening minor fissure
--- NOTE | 2021-10-06 12:37 | PM.OP ---
Operative Report Date of procedure: October 06, 2021 Pre-op diagnosis: Preop Diagnosis end-stage renal disease Post-op diagnosis: Same Procedure done: Permacath placement Implants: Permacath Surgeon: Dr. Dhruv Alvarado DO Estimated blood loss: 20 Brief History: Patient with end-stage. Permacath placement is indicated. Risks and benefits were explained and documented Procedure: Patient was taken to the operating room and placed supine on the operating room table. All bony prominences were padded. He was given IV sedation and monitored throughout the case by the anesthesia personnel. SCDs were placed and turned on. The arms were tucked to the side. Patient received Vancomycin preoperatively IV. The bilateral chest wall was prepped and draped in usual sterile fashion using chlorhexidine base prep. Sterile drapes were applied. We did procedure pause prior to beginning. An 18 gauge needle was placed in the right internal jugular vein under ultrasound guidance. Dark, nonpulsatile blood was aspirated. A guidewire was placed through the needle centrally toward the atrial/vena caval junction. Fluoroscopy visualized good placement. The needle was removed and the guidewire was clipped to the drape with a hemostat. Further local anesthetic was infiltrated in the soft tissues of the right chest wall and a #15 blade was used to make a vertical skin incision. A #15 blade was used to make a small skin rosario around the guidewire insertion area. The permacath tubing was tunneled through the subcutaneous tissues up to the needle insertion location. Serial dilators were used to serially dilate over the guidewire . A dilator with a peel-away sheath was placed over the guidewire and placed centrally. The guidewire was removed as well as the dilator and the permacath was fed into the split sheath. The split sheath was removed. Both ports were aspirated to reveal dark blood and were flushed with saline only as the patient has a heparin allergy. final fluoroscopy visualization showed no kink in the catheter and the tip of the permacath tubing near the atrial/vena caval junction. Both skin incisions were thoroughly irrigated and suctioned dry. Meticulous hemostasis noted. The internal jugular access site was closed with 4-0 Vicryl in a subcuticular fashion. The skin overlying the permacath was closed in a similar manner. The permacath was then sutured into place using 2-0 nylon in a simple interrupted fashion. skin glue was applied as a topical dressing. This was allowed to dry. Patient was awakened from anesthesia and transferred via her cart to the recovery room in stable condition. All needle, sponge, and instrument counts were correct per the operating personnel x2 counts.
--- NOTE | 2021-10-06 14:23 | ANE.PACU2 ---
Inpatient post-anesthesia follow up: Airway intact: Yes Vital signs: Temperature 97.8 F Pulse Rate 87 Respiratory Rate 15 Blood Pressure 141/119 Pulse Oximetry 99 Oxygen Delivery Me thod Room Air Oxygen Flow Rate 2 Fraction of Inspir ed Oxygen Hydration adequate: Yes Nausea and vomiting: No Pain level: 1 Mental status: Baseline
--- NOTE | 2021-10-06 14:39 | ANE.PACU2 ---
Inpatient post-anesthesia follow up: Airway intact: Yes Vital signs: Temperature 97.8 F Pulse Rate 87 Respiratory Rate 15 Blood Pressure 141/119 Pulse Oximetry 99 Oxygen Delivery Me thod Room Air Oxygen Flow Rate 2 Fraction of Inspir ed Oxygen Hydration adequate: Yes Nausea and vomiting: No Pain level: 2 Mental status: Baseline
--- NOTE | 2021-10-06 15:10 | P.PN_ITS ---
Subjective Subjective: Patient was seen this morning, he is upset about being n.p.o. for dialysis catheter placement Vitals/I&O/Wt Last Vital Signs Temp 97.8 F 10/06/21 05:00 Pulse 87 10/06/21 14:15 Resp 15 10/06/21 14:15 BP 141/119 10/06/21 14:15 Pulse Ox 99 10/06/21 14:15 10/06/21 10/06/21 10/06/21 06:59 14:59 22:59 Intake Total 242.245 / 242.245 Output Total 1400 / 3955 1450 / 1450 Balance -1400 / -2685 -1207.755 / -1207.755 Weight last 48 hrs Weight 83.461 kg Weight 84.595 kg Physical Exam Const: COMMON NORMALS: no acute distress and patient oriented x3 Resp: COMMON NORMALS: normal respiratory effort, No retractions, No use of ac cessory muscles and clear to auscultation bilaterally AUSCULTATION: clear to auscultation bilaterally Cardio: COMMON NORMALS: regular rate, regular rhythm, S1 normal heart sound present and S2 normal heart sound present RATE: regular rate RHYTHM: regular rhythm HEART SOUNDS: S1 normal heart sound present and S2 normal heart sound present GI: COMMON NORMALS: Normal to inspection, nondistended, normoactive bowel sounds present, Soft to palpation and non-tender PALPATION: Yes Soft to palpation Extremity: COMMON NORMALS: no pedal edema Neuro: COMMON NORMALS: patient oriented x3 Psych: COMMON NORMALS: mental status grossly normal Data : 10/06/21 05:45 10/06/21 05:25 Micro: Microbiology 10/05/21 09:31 Blood Culture - Preliminary Blood NEGATIVE TO DATE 10/05/21 09:30 Blood Culture - Preliminary Blood NEGATIVE TO DATE A&P Assessment and plan (1) Volume overload: Status: Acute (2) CHF exacerbation: Status: Acute (3) Acute kidney injury superimposed on CKD: Status: Acute (4) CKD (chronic kidney disease) stage 4, GFR 15-29 ml/min: Status: Acute (5) Hypertension, essential: Status: Acute (6) Acute respiratory failure with hypoxia: Status: Acute (7) Mild aortic regurgitation: Status: Acute (8) Hyperlipidemia: Status: Acute (9) Cardiomyopathy: Status: Acute (10) Systolic CHF: Status: Acute (11) Moderate pulmonary arterial systolic hypertension: Status: Acute (12) Urinary tract infection: Status: Acute Plan Acute hypoxic respiratory failure, bilateral extremity edema, fluid overload -Secondary to systolic and diastolic CHF -Also has evidence of acute on chronic renal failure CT chest 1. Comparison contrast-enhanced CT 04/13/2019. 2. Minimal pulmonary emphysema. Slight interval progression of minimal central peribronchial thickening without bronchiectasis. Otherwise no acute lung consolidation or ground-glass opacity. Scattered areas of linear scarring-atelectasis bilaterally. Mild pulmonary hyperinflation/COPD-mild chronic bronchitis probably present. 3. New small bilateral pleural effusions. 4. Coronary calcifications and other cardiovascular findings as above. 5. Slightly prominent ascending aorta and main pulmonary artery. See discussion above. 6. Small amount of perihepatic ascites and incidental right renal findings as above. Cardiac echocardiogram Severely increased left ventricular cavity size. Normal left ?ventricular wall thickness. Severely decreased left ventricular ?systolic function. Left ventricular ejection fraction is ?estimated at 20 %. Grade III/IV diastolic dysfunction ?(restrictive filling pattern), severely elevated filling ?pressures. Global left ventricular hypokinesis. ?Normal right ventricular size. Moderately decreased right ?ventricular systolic function. Moderate pulmonary hypertension, ?RVSP 59 mmHg. ?Mildly increased right atrial size. ?Mildly increased left atrial size. ?Structurally normal mitral valve. Mild mitral valve ?regurgitation. ?Structurally normal trileaflet aortic valve. No aortic valve ?stenosis. [id number] aortic valve regurgitation. Plan -Admit to ICU -Receiving Lasix 80 p.o. twice daily with metolazone -EF 20% -Diuresed over 8 L -Monitor urine output, monitor creatinine, Place Baig catheter -Blood pressure control -I dialysis catheter to be placed today -Full code -Heparin for DVT prophylaxis -For now I will hold his Plavix, due to dialysis catheter placement, on aspirin Acute renal failure, creatinine 9.5, nephrology on consult, proceeding with dialysis catheter placement today NSTEMI -Statin -Aspirin 81 mg -Coreg -Cardiac echo as above Hypertensive urgency, blood pressure 172/126 -Continue Coreg, hydralazine, clonidine BPH Obstructive sleep apnea, CPAP Attestations Medical Necessity Statement*: Patient requires hospitalization for dialysis, dialysis cath Coding Level of Care Code Acute Sign Installer for Ramana Pillai Diagnoses Volume overload E87.70 CHF exacerbation I50.9 Acute kidney injury superimposed on CKD N17.9; N18.9 CKD (chronic kidney disease) stage 4, GFR 15-29 ml/min N18.4 Hypertension, essential I10 Acute respiratory failure with hypoxia J96.01 Mild aortic regurgitation I35.1 Hyperlipidemia E78.5 Cardiomyopathy I42.9 Systolic CHF I50.20 Moderate pulmonary arterial systolic hypertension I27.21 Urinary tract infection N39.0
[2021-10-06] MEDS: calcium acetate 667 mg Capsule 1334 MG PO ×2 (15:31→17:47)
--- NOTE | 2021-10-06 17:42 | PC.NURSE ---
Pt has been resting in bed this shift. Dialysis cath in place on right chest. Dressing is dry and intact with no bleeding noted. Pt is requesting family members bring him food and drinks and has requested that staff members bring him extra water. Pt and family has been educated on the importance of compliance with fluid restriction.
[2021-10-06] MEDS: pantoprazole 40 mg SDV IVP (17:47)
[2021-10-06] MEDS: heparin 5,000 unit/mL INJ 1 mL 5000 UNIT SUBCUT (17:48)
--- NOTE | 2021-10-06 18:45 | PC.NURSE ---
Received report. Pt. is currently receving dialysis at bedside. No needs identified at this time.
[2021-10-06] MEDS: trazodone 50 mg Tablet 25 MG PO (20:54)
[2021-10-07] VITALS (13 sets, daily range): BP systolic 129–161; BP diastolic 77–97; PULSE 72–107; RESP 16–22; TEMP 36.6–37.2; O2SAT 95–100
[2021-10-07 03:47] LABS: Basophils % 0.5 %; Eosinophils # 0.1 10^3/uL (0.0-0.8); Eosinophils % 1.4 %; Hematocrit 28.5 % (42.0-52.0); Hemoglobin 9.6 g/dL (11.7-16.6); Lymphocytes # 0.7 10^3/uL (0.8-4.8); Lymphocytes % 8.9 %; Mean Corpuscular HGB Conc 33.7 g/dL (30.0-36.0); Mean Corpuscular Hemoglobin 28.6 pg (28.0-34.0); Mean Corpuscular Volume 84.8 fl (80-94); Mean Platelet Volume 11.2 fL (7.4-10.4); Monocytes # 1.4 10^3/uL (0.2-0.9); Monocytes % 16.3 %; Neutrophils # 6.02 10^3/uL (1.8-7.7); Neutrophils % 72.3 %; Nucleated Red Blood Cells % 0.2 %; Platelet Count 189 10^3/cmm (130-400); Red Blood Count 3.36 10^6/uL (4.1-5.3); Red Cell Distribution Width 17.2 % (12.1-15.1); White Blood Count 8.3 10^3/uL (4.0-10.0)
[2021-10-07 04:06] LABS: Alanine Aminotransferase 19 U/L (0-41); Albumin Level 2.3 g/dL (3.5-5.2); Alkaline Phosphatase 98 IU/L (40-130); Anion Gap 20.2 (5-19); Aspartate Amino Transferase 27 U/L (0-40); Blood Urea Nitrogen 62 mg/dL (8-23); Calcium 6.6 mg/dL (8.5-10.5); Carbon Dioxide 19 mmol/L (22-29); Chloride 103 mmol/L (98-107); Globulin 3.3 g/dL (1.3-4.6); Glomerular Filtration Rate 9.1 mL/min (90-130); Glucose 106 mg/dL (65-115); Magnesium 1.7 mg/dL (1.7-2.3); Osmolality Calculated 304 mOsm/kg (285-295); Potassium 4.2 mmol/L (3.5-5.1); Sodium 138 mmol/L (136-145); Total Bilirubin 0.2 mg/dL (0.15-1.2); Total Protein 5.6 g/dL (6.6-8.7)
[2021-10-07] MEDS: HYDROcodone-acetaminophen 5-325 mg Tablet 1 TAB PO ×3 (06:10→15:51)
[2021-10-07] MEDS: ipratropium-albuterol 3 mL Neb INHALATION (07:30)
--- NOTE | 2021-10-07 08:22 | P.PN_ITS ---
Subjective Subjective: Fredy has been transferred to the second floor. The dialysis catheter was replaced yesterday. Patient did undergo hemodialysis yesterday afternoon. He is fairly disgusted and somewhat depressed this morning. He is beginning to ask questions about going home and figuring [facility]. Shortness of breath is improved. He is able to lie flat. The edema has resolved. Total urine output yesterday 3075 mL. Negative balance of 1373 mL. Creatinine is down to 7.3 today. His albumin is low of course. Blood pressure has come down. It is better controlled today 161/97. Remains on Coreg, metolazone, hydralazine and p.o. Lasix. Dobutamine is off. Vitals/I&O/Wt Last Vital Signs Temp 98.4 F 10/07/21 07:27 Pulse 80 10/07/21 07:35 Resp 18 10/07/21 07:30 BP 161/97 10/07/21 07:27 Pulse Ox 97 10/07/21 07:30 10/06/21 10/07/21 10/07/21 22:59 06:59 14:59 Intake Total 530 / 1202.245 500 / 1702.245 Output Total 1075 / 2525 500 / 3025 400 / 400 Balance -545 / -1322.755 0 / -1322.755 -400 / -400 Weight last 48 hrs Weight 177 lb 6.4 oz Weight 184 lb Physical Exam Narrative: GENERAL: In general he is quiet today but in no distress able to lie flat HEENT: Exam within normal limits. NECK: Supple without jugular vein distention. The carotid upstroke is normal without bruits. BACK: Exam normal. LUNGS: Clear. HEART: Regular rate and rhythm. ABDOMEN: Benign without organomegaly or tenderness. EXTREMITIES: No edema. NEUROLOGIC: Exam normal. SKIN: Unremarkable. Data : 10/07/21 03:30 10/07/21 03:30 Micro: Microbiology 10/05/21 09:31 Blood Culture - Preliminary Blood NEGATIVE TO DATE 10/05/21 09:30 Blood Culture - Preliminary Blood NEGATIVE TO DATE A&P Assessment and plan (1) End stage renal disease: Status: Acute (2) Hyperlipidemia: Status: Acute (3) Mild aortic regurgitation: Status: Acute (4) Acute respiratory failure with hypoxia: Status: Acute (5) CHF exacerbation: Status: Acute (6) Hypertension, essential: Status: Acute (7) Cardiomyopathy: Status: Acute (8) Obstructive sleep apnea: Status: Acute (9) Hypoalbuminemia: Status: Acute Plan We will need to straighten out his antihypertensive regimen soon. Now that he is off the dobutamine we will need to decide on either an FARSHAD inhibitor or angiotensin receptor lauri versus hydralazine and nitroglycerin for his afterload reduction plan. Preference of course would be either the angiotensin receptor lauri or FARSHAD inhibitor. Also will need to figure out his diuretics. Attestations Medical Necessity Statement*: Hospital management of cardiomyopathy and end- stage renal disease with dialysis. Coding Level of Care Code Established Pt Acute Registered Mail Clerk for Ramana Pillai Patient Type Established History Detailed 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 Medical Decision Making High Complexity Diagnoses End stage renal disease N18.6 Hyperlipidemia E78.5 Mild aortic regurgitation I35.1 Acute respiratory failure with hypoxia J96.01 CHF exacerbation I50.9 Hypertension, essential I10 Cardiomyopathy I42.9 Obstructive sleep apnea G47.33 Hypoalbuminemia E88.09
--- NOTE | 2021-10-07 09:45 | PM.PN ---
Subjective Subjective: Doing well on dialysis today. No new issues. Good urine output Vitals/I&O/Wt Last Vital Signs Temp 99.0 F 10/07/21 08:45 Pulse 98 10/07/21 08:45 Resp 18 10/07/21 08:45 BP 144/96 10/07/21 08:45 Pulse Ox 97 10/07/21 07:30 10/06/21 10/07/21 10/07/21 22:59 06:59 14:59 Intake Total 530 / 1202.245 500 / 1702.245 300 / 300 Output Total 1075 / 2525 500 / 3025 2202 / 2202 Balance -545 / -1322.755 0 / -1322.755 -1902 / -1902 Weight last 48 hrs Weight 82.4 kg Weight 80.467 kg Weight 83.461 kg Physical Exam Narrative: Constitutional: Awake, comfortable HEENT: Wet mucosa, no jvp, non icteric Lungs: Bilaterally basal rales CVS: S1 S2, no murmurs Abdo: Soft, BS ok Ext 4: 2-3+ edema, peripheral perfusion with no cyanosis Neurological: Grossly non-focal Data : 10/07/21 03:30 10/07/21 03:30 Micro: Microbiology 10/05/21 09:31 Blood Culture - Preliminary Blood NEGATIVE TO DATE 10/05/21 09:30 Blood Culture - Preliminary Blood NEGATIVE TO DATE A&P Assessment and plan (1) ESRD (end stage renal disease): Status: Acute Plan 1. Acute on chronic renal failure, now progressed to ESRD It is now likely that he is progressed to end-stage renal disease. Dialysis initiated 10/06, session 2 today 3rd session tomorrow with full settings manager mechanical to set up outpatient Strict I's and O's Dose medication for GFR less than 15 Avoid usual's 2. Hypertension Better No changes to meds On Dubtrex Cardiology input appreciated from Dr Alvarado 3. Chemistry Dialysis will correct 4. CKD-MB Will add calcitriol check PTH cont Phoslo with meals 5. Dispo manager mechanical to set up outpatient dialysis, ok for DC when this is organized D/w Jeannette his daughter at bedside today Thank you for consultation, it is a pleasure to follow these cases with you Exam and interview performed with aid of bedside RN using telemedicine Time spent 20 min inc > 50% of time in face to face counseling Daniel Wadsworth MD [facility] [phone] Attestations Medical Necessity Statement*: eval for renal failure Coding Level of Care Code Acute Dental Technician Instructor for Chg Fwd Diagnoses ESRD (end stage renal disease) N18.6
[2021-10-07] MEDS: cefTRIAXone 1,000 MG in sodium chloride 0.9% (plus) 50 ML 100 MG IV (11:23)
[2021-10-07] MEDS: hyDRALAzine 25 mg Tablet PO ×2 (11:24→14:20)
[2021-10-07] MEDS: carvedilol 25 mg Tablet PO (11:24)
[2021-10-07] MEDS: aspirin 81 mg EC Tablet PO (11:24)
[2021-10-07] MEDS: FUROsemide 40 mg Tablet 80 MG PO (11:24)
[2021-10-07] MEDS: calcium acetate 667 mg Capsule 1334 MG PO (11:29)
[2021-10-07] MEDS: lisinopril 20 mg Tablet PO (11:29)
--- NOTE | 2021-10-07 11:34 | P.DS_ITS ---
Discharge Providers Date of Admission: 10/02/21 14:10 Date of Discharge: October 07, 2021 Attending Provider at Admission: Anatoly Saunders MD Attending Provider at Discharge: Anatoly Saunders MD Primary Care Provider: Kian Colon MD Diagnoses at Discharge Discharge Diagnosis (1) CKD (chronic kidney disease) stage 4, GFR 15-29 ml/min: Status: Acute Reason for Visit Reason for Visit: EDEMA LOWER EXT. SOB Hospital Course Hospital Course Fredy Hammonds is a 66 year old male with a past medical history of CKD stage IV, history of CAD, history of combined systolic diastolic CHF, moderate pulmonary pretension, history of obstructive sleep apnea, not on CPAP, COPD, mild aortic stenosis who presents [facility] due to shortness of breath and bilateral extreme edema.? Patient was admitted to [facility] for acute hypoxic respiratory failure, bilateral lower extremity edema, fluid overload secondary to systolic and diastolic CHF, echocardiogram showed an EF of 20%, nephrology was consulted, cardiology was consulted. Patient was admitted to the ICU, received IV diuresis, diuresed over 12 L, clinically improved, room air, minimal edema. Patient will be discharged with Lasix 80 twice daily with close follow-up with primary care provider as outpatient For patient's acute on chronic renal failure, patient's renal functio continue to deteriorate, creatinine 1.2. After discussing the risk and benefits of dialysis catheter placement and dialysis, patient voiced understanding, all questions answered, agreed to proceed with dialysis catheter placement dialysis. Patient dialysis catheter placement received 2 sessions of inpatient dialysis. Tolerated it well, discharged on dialysis schedule Tuesdays, , Tuesday. He is to follow-up with Dr. Hightower as outpatient. For his new onset systolic and diastolic CHF, likely nonischemic cardiomyopathy, no complaints of chest pain, likely secondary to noncompliance with his antihypertensive medications and fluid overload/pulm edema. Patient will be discharged on lisinopril 20 mg once daily, hydralazine, Coreg, Lasix, aspirin, with close follow-up with cardiology as outpatient. Patient is to follow-up with cardiology as outpatient for consideration of LifeVest. He was also found to have moderate pulm hypertension, global left ventricular hypokinesis, grade 3 out of 4 diastolic dysfunction on echocardiogram. Physical Exam Const: COMMON NORMALS: no acute distress and patient oriented x3 Resp: COMMON NORMALS: normal respiratory effort, No retractions, No use of accessory muscles and clear to auscultation bilaterally AUSCULTATION: clear to auscultation bilaterally Cardio: COMMON NORMALS: regular rate, regular rhythm, S1 normal heart sound present and S2 normal heart sound present RATE: regular rate RHYTHM: regular rhythm HEART SOUNDS: S1 normal heart sound present and S2 normal heart sound present GI: COMMON NORMALS: Normal to inspection, nondistended, normoactive bowel sounds present, Soft to palpation and non-tender PALPATION: Yes Soft to palpation Extremity: COMMON NORMALS: no pedal edema Neuro: COMMON NORMALS: patient oriented x3 Psych: COMMON NORMALS: mental status grossly normal Discharge Data Studies Completed and Pending Completed Studies During Hospitalization Category Date Time Status CT chest wo con [id number] Urgent Cat Scan 10/02/21 14:06 Completed CXRP [XR chest 1V portable [id number]] Routine Exams 10/06/21 12:37 Completed XR chest 1V portable [id number] Stat Exams 10/02/21 12:41 [place] [id number] Urgent Ultrasound 10/02/21 14:05 Completed CV. echo complete* [id number] Routine Ultrasound 10/02/21 14:05 Completed US renal BI* [id number] Urgent Ultrasound 10/02/21 15:47 Completed Pending at discharge Category Date Time Status Blood Culture Stat Lab 10/02/21 16:44 Results Blood Culture Stat Lab 10/05/21 09:30 Results Complete Blood Count w/Auto AM LABS Lab 10/08/21 04:00 Ordered Comprehensive Metabolic Panel AM LABS Lab 10/08/21 04:00 Ordered Magnesium AM LABS Lab 10/08/21 04:00 Ordered PTH Related Peptide (Protein) Routine Lab 10/06/21 11:05 Received Phosphorus AM LABS Lab 10/08/21 04:00 Ordered Radiology Impressions Venous Duplex 10/02/21 14:05 IMPRESSION: No evidence of deep vein thrombosis. Chest CT 10/02/21 14:06 IMPRESSION: 1. Comparison contrast-enhanced CT 04/13/2019. 2. Minimal pulmonary emphysema. Slight interval progression of minimal central peribronchial thickening without bronchiectasis. Otherwise no acute lung consolidation or ground-glass opacity. Scattered areas of linear scarring-atelectasis bilaterally. Mild pulmonary hyperinflation/COPD-mild chronic bronchitis probably present. 3. New small bilateral pleural effusions. 4. Coronary calcifications and other cardiovascular findings as above. 5. Slightly prominent ascending aorta and main pulmonary artery. See discussion above. 6. Small amount of perihepatic ascites and incidental right renal findings as above. COMMENTS: Consistent with the [employer]'s Incidental Findings Committee white paper (J Am Zonia Radiol 2018): Any incidental renal lesion less than 1 cm or classified as too small to characterize, or any incidental cystic renal lesion characterized as simple-appearing, is likely benign. No follow-up imaging is recommended for these lesions per consensus recommendations based on imaging criteria. Renal Ultrasound 10/02/21 15:47 IMPRESSION: 1. Severe bilateral medical renal disease. No hydronephrosis identified. 2. RIGHT renal cortical cysts. 3. Urinary bladder is distended. C-Arm Fluoroscopy 10/06/21 11:07 Impression: Insertion right dialysis catheter. Chest X-Ray 10/06/21 12:37 IMPRESSION: 1. No acute findings. 2. Right central line in the right atrium 3. Pleural thickening minor fissure Laboratory Results WBC 8.3 10^3/uL (4.0-10.0) 10/07/21 03:30 RBC 3.36 10^6/uL (4.1-5.3) L 10/07/21 03:30 Hgb 9.6 g/dL (11.7-16.6) L 10/07/21 03:30 Hct 28.5 % (42.0-52.0) L 10/07/21 03:30 MCV 84.8 fl (80-94) 10/07/21 03:30 MCH 28.6 pg (28.0-34.0) 10/07/21 03:30 MCHC 33.7 g/dL (30.0-36.0) 10/07/21 03:30 RDW 17.2 % (12.1-15.1) H 10/07/21 03:30 Plt Count 189 10^3/cmm (130-400) 10/07/21 03:30 MPV 11.2 fL (7.4-10.4) H 10/07/21 03:30 Neut % (Auto) 72.3 % 10/07/21 03:30 Lymph % (Auto) 8.9 % 10/07/21 03:30 Kings % (Auto) 16.3 % 10/07/21 03:30 Eos % (Auto) 1.4 % 10/07/21 03:30 Baso % (Auto) 0.5 % 10/07/21 03:30 Neut # (Auto) 6.02 10^3/uL (1.8-7.7) 10/07/21 03:30 Lymph # (Auto) 0.7 10^3/uL (0.8-4.8) L 10/07/21 03:30 Kings # (Auto) 1.4 10^3/uL (0.2-0.9) H 10/07/21 03:30 Eos # (Auto) 0.1 10^3/uL (0.0-0.8) 10/07/21 03:30 Baso # (Auto) 0.0 10^3/uL (0.0-0.1) 10/07/21 03:30 Nucleated RBC % (auto) 0.2 % 10/07/21 03:30 Nucleated RBCs # 0.0 /100WBC 10/07/21 03:30 PT 13.90 SECONDS (12.1-14.9) 10/06/21 05:25 INR 1.04 (0.8-1.2) 10/06/21 05:25 D-Dimer 1.30 ug/mIFEU (0-0.59) H 10/02/21 12:50 Specimen Type Arterial 10/02/21 15:50 Sample Site Radial, right 10/02/21 15:50 ABG pH 7.32 (7.35-7.45) L 10/02/21 15:50 ABG pCO2 25.5 mmHg (35-45) L 10/02/21 15:50 ABG pO2 107.0 mmHg (80.0-100.0) H 10/02/21 15:50 ABG HCO3 13.0 mmol/L (22-26) L 10/02/21 15:50 ABG Base Excess -11.7 mmol/L (-2.0-2.0) L 10/02/21 15:50 Antonio Test Pos 10/02/21 15:50 Hematocrit 31.0 % (42-52) L 10/02/21 15:50 O2 Delivery Device Nc 10/02/21 15:50 O2 Liters/Min 3.0 % 07/01/22 15:50 Intern Product Marketing Manager ID Monique 10/02/21 15:50 Sodium 138 mmol/L (136-145) 10/07/21 03:30 Potassium 4.2 mmol/L (3.5-5.1) 10/07/21 03:30 Chloride 103 mmol/L (98-107) 10/07/21 03:30 Carbon Dioxide 19 mmol/L (22-29) L 10/07/21 03:30 Anion Gap 20.2 (5-19) H 10/07/21 03:30 BUN 62 mg/dL (8-23) H 10/07/21 03:30 Creatinine 7.3 mg/dL (0.7-1.2) H* 10/07/21 03:30 GFR Calculation 9.1 mL/min (90-130) L 10/07/21 03:30 Glucose 106 mg/dL (65-115) 10/07/21 03:30 Estimat Average Glucose 117 10/02/21 12:49 Hemoglobin A1c 5.7 % (4.0-6.0) 10/02/21 12:49 Calculated Osmolality 304 mOsm/kg (285-295) H 10/07/21 03:30 Lactate 1.1 mmol/L (0.5-2.2) 10/05/21 05:00 Uric Acid 10.8 mg/dL (3.4-7.0) H 10/02/21 16:44 Calcium 6.6 mg/dL (8.5-10.5) L 10/07/21 03:30 Phosphorus 5.0 mg/dL (2.5-4.5) H 10/07/21 03:30 Magnesium 1.7 mg/dL (1.7-2.3) 10/07/21 03:30 Total Bilirubin 0.2 mg/dL (0.15-1.2) 10/07/21 03:30 AST 27 U/L (0-40) 10/07/21 03:30 ALT 19 U/L (0-41) 10/07/21 03:30 Alkaline Phosphatase 98 IU/L (40-130) 10/07/21 03:30 Creatine Kinase 158 U/L (39-308) 10/05/21 05:00 Troponin T Baseline 82 ng/L (0-15) H 10/02/21 12:49 Troponin T 120 Minute 74.85 ng/L (0-15) H 10/02/21 16:30 Delta Troponin T -7.15 ABS# (0-10) L 10/02/21 16:30 Troponin T Hi Sens 6Hr 72.51 ng/L (0-15) H 10/02/21 19:05 Troponin T Hi Sens 6Hr Delta -9.49 ng/L (0-12) L 10/02/21 19:05 C-Reactive Protein 3.0 mg/L (0.0-4.9) 10/02/21 16:44 NT-Pro-B Natriuret Pep > 77076 pg/mL (0-125) H 10/05/21 05:00 Total Protein 5.6 g/dL (6.6-8.7) L 10/07/21 03:30 Albumin 2.3 g/dL (3.5-5.2) L 10/07/21 03:30 Globulin 3.3 g/dL (1.3-4.6) 10/07/21 03:30 Triglycerides 88 mg/dL (0-150) 10/02/21 17:02 Cholesterol 106 mg/dL (0-200) 10/02/21 17:02 LDL Cholesterol, Calc 45 mg/dL (50-129) L 10/02/21 17:02 HDL Cholesterol 43 mg/dL (60-100) L 10/02/21 17:02 LDL/HDL Ratio 1.05 RATIO (0.00-3.22) 10/02/21 17:02 Cholesterol/HDL Ratio 2.47 mg/dL (1.0-5.00) 10/02/21 17:02 Procalcitonin 0.40 ng/mL (0-0.5) 10/02/21 16:44 TSH 2.15 uIU/mL (0.27-4.20) 10/02/21 17:02 Urine Color Yellow (Yellow) 10/02/21 17:25 Urine Appearance Clear (CLEAR) 10/02/21 17:25 Urine pH 5 (5-7) 10/02/21 17:25 Ur Specific [place] 1.010 (1.005-1.030) 10/02/21 17:25 Urine Protein 3+ (Negative) H 10/02/21 17:25 Urine Glucose (UA) Norm (Normal) 10/02/21 17:25 Urine Ketones Negative (Negative) 10/02/21 17:25 Urine Blood Trace (Negative) H 10/02/21 17:25 Urine Nitrate Positive (Negative) H 10/02/21 17:25 Urine Bilirubin Neg (Negative) 10/02/21 17:25 Urine Urobilinogen Norm mg/dL (Negative) 10/02/21 17:25 Ur Leukocyte Esterase 1+ (Negative) H 10/02/21 17:25 Urine RBC None /hpf (0-2) 10/02/21 17:25 Urine WBC 5-10 /hpf (0-5) H 10/02/21 17:25 Ur Squamous Epith Cells 0-4 /hpf (0-5) H 10/02/21 17:25 Amorphous Sediment Not Reportable 10/02/21 17:25 Urine Bacteria 3+ /hpf (NONE) H 10/02/21 17:25 U Random Total Protein 441 mg/dL 10/02/21 17:25 Ur Random Sodium 86 mmol/L 10/02/21 17:25 Urine Creatinine 53 mg/dL (39-259) 10/02/21 17:25 Protein/Creatinin Ratio 8.32 mg/mg CR 10/02/21 17:25 Hep Bs Antigen Non-reactive (Nonreactive) 10/04/21 17:09 Hep Bs Antibody < 3.5 (11.5-1000) L 10/04/21 17:09 Hep B Core Total Ab Non-reactive (Nonreactive) 10/04/21 17:09 Vitals Last Vital Signs Temp 98.8 F 10/07/21 11:29 Pulse 102 H 10/07/21 11:29 Resp 16 10/07/21 11:29 BP 155/90 10/07/21 11:29 Pulse Ox 100 10/07/21 11:29 Discharge Plan Discharge Patient Disposition: Home Condition: Stable Prescriptions: New lisinopril 20 mg Tablet 20 mg PO DAILY 30 Days Qty: 30 0RF aspirin 81 mg Tablet,Delayed Release (Dr/Ec) 81 mg PO DAILY 30 Days Qty: 30 0RF furosemide 40 mg Tablet 80 mg PO BID@08,16 30 Days Qty: 80 0RF calcium acetate [Calphron] 667 mg Tablet 1,334 mg PO TIDWM 30 Days Qty: 90 0RF Continued triamcinolone acetonide 0.5 % cream 1 applic topical DAILY Qty: 15 0RF Combivent Respimat 20-100 mcg/actuation mist 1 puff inhalation Q4H PRN (Reason: wheezing) 30 Days Qty: 4 4RF fluticasone propionate [Flonase Allergy Relief] 50 mcg/actuation spray,suspension 1 spray intranasal BID 30 Days Qty: 16 4RF Rx Instructions: administer into each nostril Anoro Ellipta 62.5-25 mcg/actuation blister with device 1 inh inhalation DAILY 60 Days Qty: 60 3RF albuterol sulfate 2.5 mg /3 mL (0.083 %) Solution For Nebulization 2.5 mg INHALATION QID PRN (Reason: Shortness Of Breath) 0RF Nitrostat 0.4 mg tablet, sublingual 0.4 mg SUBLINGUAL Q5M PRN (Reason: Chest Pain) 30 Days Qty: 30 0RF trazodone 50 mg tablet 25 mg PO DAILY 30 Days Qty: 30 0RF hydralazine 25 mg tablet 25 mg PO TID 30 Days Qty: 90 0RF carvedilol 25 mg tablet 25 mg PO BID 30 Days Qty: 0 0RF Rx Instructions: must administer with a meal/food Held sildenafil 100 mg tablet 50 mg PO DAILY PRN (Reason: sexual activity) Qty: 30 0RF Hold Instructions: Resume on 11/04/21. hold until blood pressure check Rx Instructions: take 30 min to 4 hrs before activity,do not take Isosorbide on same day of use. Discontinued colchicine 0.6 mg tablet 0.6 mg PO DAILY Qty: 14 0RF amlodipine 10 mg tablet 10 mg PO DAILY Qty: 90 3RF furosemide 40 mg tablet 40 mg PO DAILY PRN (Reason: Edema) Qty: 90 1RF clopidogrel 75 mg tablet 75 mg PO DAILY 0RF Rx Instructions: TAKE 1 TABLET BY MOUTH DAILY sodium bicarbonate 650 mg tablet 650 mg PO TID Qty: 90 3RF No Action (DME) Cane See Rx Instructions .Route .MEDSUPPLY Qty: 1 0RF Rx Instructions: As directed Discharge Orders: Discharge Order (Routine); Ordered 10/07/21 Ordered By: Anatoly Saunders Referrals: [facility] [Other] (Chair time 0600 on Tuesday, , & Tuesday.) Kian Colon MD [Primary Care Provider] - 1-3 days Jeevan Hightower MD [Referring] - 1 week Marlyn Solomon MD [Physician] - 2 weeks Discharge Diet: Cardiac Discharge Activity: Resume usual activity Patient Instructions: Opioid Safety Activity Restrictions/Additional Instructions: - Please monitor blood pressures closely -If you have lightheadedness or dizziness, please stop taking hydralazine -Please follow-up with Dr. Colon in a few days for blood pressure check -Please follow-up with cardiology in 2 to 4 weeks -If any chest pain, palpitations go to the emergency room -Follow with Dr. Hightower in 1 week -Dialysis days Tuesdays, , Saturdays - Discharge Attestations Time Spent in Discharge Care*: less than 30 min Quality Metrics Clinical Quality Measures [ No reported AMI, CVA or VTE this stay] Coding Level of Care Code Acute Chg FW DC note Diagnoses CKD (chronic kidney disease) stage 4, GFR 15-29 ml/min N18.4
--- NOTE | 2021-10-07 13:16 | PC.SOCIAL ---
IMM Updated Updated pt on IMM. No questions voiced. Provided pt a copy. Initialed, dated, & timed copy in chart.
[2021-10-07] MEDS: naproxen 500 mg Tablet PO (16:31)
[2021-10-09 14:22] LABS: PTH Related Peptide (Protein) 19 pg/mL (11-20)
== END 2021-10-07 17:30 | disposition home health service (06) | DRG 291 ==
LOC: ER 14:56 → ICU 16:17 → MEDSURG 10-06 18:12
PROVIDERS: Internal Medicine Nephrology; Surgery; Admitting Provider Family Medicine; Emergency Provider Emergency Medicine; PCP Family Medicine Adult Medicine; Visit Provider Family Medicine
PROC: 0JH63XZ Insertion of Tunneled Vascular Access Device into Chest Subcutaneous Tissue and Fascia, Percutaneous Approach (ICD-10-PCS; principal; 2021-10-06 10:40)
DX: I13.2 Hypertensive heart and chronic kidney disease with heart failure and with stage 5 chronic kidney disease, or end stage renal disease (principal); N18.6 End stage renal disease; I50.43 Acute on chronic combined systolic (congestive) and diastolic (congestive) heart failure; N13.8 Other obstructive and reflux uropathy; N39.0 Urinary tract infection, site not specified; N17.9 Acute kidney failure, unspecified; I42.0 Dilated cardiomyopathy; I25.10 Atherosclerotic heart disease of native coronary artery without angina pectoris; Z95.5 Presence of coronary angioplasty implant and graft; D63.1 Anemia in chronic kidney disease; N40.1 Benign prostatic hyperplasia with lower urinary tract symptoms; J43.9 Emphysema, unspecified; Z86.711 Personal history of pulmonary embolism; E78.5 Hyperlipidemia, unspecified; I35.1 Nonrheumatic aortic (valve) insufficiency; Z87.891 Personal history of nicotine dependence; I27.20 Pulmonary hypertension, unspecified; G47.33 Obstructive sleep apnea (adult) (pediatric); Z79.51 Long term (current) use of inhaled steroids; M10.9 Gout, unspecified; M25.561 Pain in right knee; T50.906A Underdosing of unspecified drugs, medicaments and biological substances, initial encounter; Z91.128 Patient's intentional underdosing of medication regimen for other reason; I16.0 Hypertensive urgency
CPT/HCPCS: 36415; 36600; 71045; 71250; 71275; 73560; 76000; 76770; 77001; 80048; 80053; 80061; 80306; 80307; 81001; 81003; 82009; 82542; 82550; 82570; 82803; 83036; 83605; 83735; 83880; 84100; 84145; 84156; 84300; 84443; 84484; 84550; 85025; 85378; 85610; 85651; 86140; 86705; 86706; 86803; 87040; 87340; 87522; 90935; 93005; 93306; 93308; 93458; 93970; 94640; 94664; 96372; 96374; 96375; 96376; 99285; 99291; C1769; C1887; C1894; C9113; J0696; J1250; J1644; J1940; J1956; J2250; J2270; J2370; J2405; J2704; J2930; J3010; J3370; J3475; J3490; J7030; J7050; Q3014; Q9967

== ENCOUNTER 2021-10-10 02:20 | Inpatient (IN) | payer MEDICARE, SELFPAY ==
[2021-10-10] VITALS (17 sets, daily range): BP systolic 110–154; BP diastolic 72–117; PULSE 74–125; RESP 15–19; TEMP 36.1–37.3; O2SAT 94–100; BMI 26.1
--- NOTE | 2021-10-10 02:56 | XRR_ITS ---
PROCEDURE INFORMATION: Exam: XR Chest Exam date and time: 10/10/2021 3:08 AM Age: 66 years old Clinical indication: Pain; Angina pectoris; Additional info: Cp TECHNIQUE: Imaging protocol: Radiologic exam of the chest. Views: 1 view. COMPARISON: CR XR chest 1V portable [id number] 10/06/2021 1:44 PM FINDINGS: Tubes, catheters and devices: A dialysis catheter is placed via the right internal jugular vein with its tip at the level the superior cavoatrial junction. EKG leads overlie chest. Lungs: There strandy opacity seen in the lower hemithoraces likely representing atelectasis. Pleural spaces: Unremarkable. No pleural effusion. No pneumothorax. Heart/Mediastinum: Unremarkable. No cardiomegaly. Bones/joints: Unremarkable. XR/XR chest 1V portable [id number] IMPRESSION: Probable mild bilateral basilar atelectasis.
--- NOTE | 2021-10-10 02:56 | ECG_ITS ---
[facility] Test Date: 2021-10-10 Pat Name: Fredy Hammonds Department: Room: Gender: Male Rope Cutter: : 1955 Requested By: Roc Sanchez Order Number: [id number] Arianne MD: Ben Rincon M.D. Measurements Intervals [place] Rate: 133 P: 42 IA: 120 QRS: -56 QRSD: 102 T: 124 QT: 308 QTc: 458 Interpretive Statements SINUS TACHYCARDIA WITH OCCASIONAL VENTRICULAR PREMATURE COMPLEXES WITH OCCASIONAL SUPRAVENTRICULAR PREMATURE COMPLEXES LEFT AXIS DEVIATION [QRS AXIS < -30] POSSIBLE ANTERIOR MYOCARDIAL INFARCTION , OF INDETERMINATE AGE [30 ms Q WAVE IN V3/V4, OR R < 0.2 mV IN V4] MODERATE T-WAVE ABNORMALITY, CONSIDER LATERAL ISCHEMIA [-0.1+ mV T-WAVE IN I/aVL/V5/V6] Compared to ECG 10/02/2021 17:31:42 Ventricular premature complex(es) now present Left-axis deviation now present Possible ischemia still present Electronically Signed On 10-11-2021 23:39:38 CDT by Ben Rincon M.D. [email or web address]/[id number]
[2021-10-10 03:05] LABS: Basophils % 0.1 %; Eosinophils % 0.1 %; Hematocrit 30.1 % (42.0-52.0); Hemoglobin 9.6 g/dL (11.7-16.6); Lymphocytes # 1.3 10^3/uL (0.8-4.8); Lymphocytes % 7.8 %; Mean Corpuscular HGB Conc 31.9 g/dL (30.0-36.0); Mean Corpuscular Hemoglobin 29.1 pg (28.0-34.0); Mean Corpuscular Volume 91.2 fl (80-94); Mean Platelet Volume 11.3 fL (7.4-10.4); Monocytes % 6.1 %; Nucleated Red Blood Cells % 0.2 %; Platelet Count 226 10^3/cmm (130-400); Red Cell Distribution Width 17.4 % (12.1-15.1); White Blood Count 17.2 10^3/uL (4.0-10.0)
[2021-10-10] MEDS: nitroglycerin 1 gm/inch oint Pkt 1 INCH TOPICAL (03:13)
[2021-10-10] MEDS: morphine 4 mg/mL SDV 1 mL IVP (03:14)
[2021-10-10] MEDS: ondansetron 2 mg/ML SDV 2 mL 4 MG IVP (03:14)
[2021-10-10] MEDS: metoprolol tartrate 1 mg/1 mL SDV 5 mL 5 MG IVP ×2 (03:15→08:11)
[2021-10-10 03:22] LABS: Troponin(5th) Baseline 89 ng/L (0-15)
[2021-10-10 03:32] LABS: Alanine Aminotransferase 25 U/L (0-41); Albumin Level 2.7 g/dL (3.5-5.2); Alkaline Phosphatase 150 IU/L (40-130); Aspartate Amino Transferase 78 U/L (0-40); Blood Urea Nitrogen 69 mg/dL (8-23); Calcium 6.8 mg/dL (8.5-10.5); Carbon Dioxide 20 mmol/L (22-29); Chloride 96 mmol/L (98-107); Creatine Phosphokinase 158 U/L (39-308); Globulin 3.5 g/dL (1.3-4.6); Glomerular Filtration Rate 12.6 mL/min (90-130); Glucose 211 mg/dL (65-115); Osmolality Calculated 308 mOsm/kg (285-295); Sodium 136 mmol/L (136-145); Total Bilirubin 0.2 mg/dL (0.15-1.2); Total Protein 6.2 g/dL (6.6-8.7)
[2021-10-10 03:39] LABS: Anion Gap 23.8 (5-19); Potassium 3.8 mmol/L (3.5-5.1)
[2021-10-10 03:52] LABS: NT Pro B Type Natriuretic Pept 67899 pg/mL (0-125)
--- NOTE | 2021-10-10 04:46 | CTR_ITS ---
PROCEDURE INFORMATION: Exam: CTA Chest With Contrast Exam date and time: 10/10/2021 6:09 AM Age: 66 years old Clinical indication: Pain; Chest pressure; Prior surgery; Additional info: Chest pain TECHNIQUE: Imaging protocol: Computed tomographic angiography of the chest with contrast. 3D rendering (Not supervised by radiologist): MIP and/or 3D reconstructed images were created by the technologist. Radiation optimization: All CT scans at this facility use at least one of these dose optimization techniques: automated exposure control; mA and/or kV adjustment per patient size (includes targeted exams where dose is matched to clinical indication); or iterative reconstruction. Contrast material: VISI 320; Contrast volume: 76 ml; Contrast route: INTRAVENOUS (IV); COMPARISON: CT angio chest PE protcl [id number] 04/13/2019 2:05 AM RADIATION DOSE METRICS: Total DLP (mGy-cm): 619.91 FINDINGS: Pulmonary arteries: Normal. No pulmonary emboli. Aorta: Unremarkable. No aortic aneurysm. No aortic dissection. Lungs: There is a background of mild centrilobular emphysema and pulmonary fibrosis. Pleural spaces: Unremarkable. No pneumothorax. No pleural effusion. Heart: Calcifications are seen in the coronary arteries. Lymph nodes: There are prominent mediastinal lymph nodes seen, the largest is seen in the precarinal region measuring 14.3 mm transverse dimension. This is slightly more prominent than that seen on 04/13/2019. Kidneys and ureters: A stable 1.3 cm cyst is seen on the anterior aspect of the right kidney. Bones/joints: Unremarkable. No acute fracture. Soft tissues: Unremarkable. CT/CT angio chest PE protcl [id number] IMPRESSION: 1. There is no evidence for pulmonary emboli. 2. Mildly prominent mediastinal lymph nodes are seen, the largest seen in the precarinal region measuring 14.3 mm transverse dimension. This lymph node is slightly larger today compared with 04/13/2019. 3. There are no acute chest findings.
--- NOTE | 2021-10-10 04:56 | ECG_ITS ---
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 Measurements Intervals [place] Rate: 117 P: 51 ME: 111 QRS: -70 QRSD: 105 T: 132 QT: 351 QTc: 490 Interpretive Statements SINUS TACHYCARDIA WITH SHORT ME INTERVAL LEFT AXIS DEVIATION [QRS AXIS < -30] LEFT VENTRICULAR HYPERTROPHY AND ST-T CHANGE [VOLTAGE CRITERIA PLUS ST/T ABNORMALITY] POSSIBLE ANTERIOR MYOCARDIAL INFARCTION , OF INDETERMINATE AGE [30 ms Q WAVE IN V3/V4, OR R < 0.2 mV IN V4] Compared to ECG 10/10/2021 02:27:44 Short ME interval now present Left ventricular hypertrophy now present ST (T wave) deviation now present Ventricular premature complex(es) no longer present T-wave abnormality no longer present Possible ischemia no longer present Myocardial infarct finding still present Electronically Signed On 10-11-2021 23:44:11 CDT by Ben Rincon M.D. [id number]
--- NOTE | 2021-10-10 04:56 | W.ED.CHESTPA ---
Documented by User: Roc Montes DO 10/10/21 19:22 HPI - Chest Pain General: Chief Complaint: Chest Pain Stated Complaint: cp Time Seen by Provider: 10/10/21 02:49 Source: patient and family History of Present Illness: 66-year-old gentleman who was discharged on 10/08 from this facility. He has a history of hypertensive and ischemic cardiomyopathy with an EF of 20%, and renal failure, now on dialysis. He presents after onset of chest pain at home. His chest is still hurting on arrival. He is not really having more trouble breathing than normal. He denies a significant cough he states his legs have swollen quite a bit since his last dialysis session which was . MD complaint: chest pain Pertinent past history: other Onset (ago): hour(s) Timing of current episode: constant Prior episodes: No Onset: during rest Pain location: substernal Pain radiation: left shoulder Quality: aching and heaviness Relieving factors: nitroglycerin (Helped mildly) Exacerbating factors: nothing Context: recent illness Associated symptoms: Reports dyspnea (Chronic), leg edema and nausea; Deny abdominal pain, diaphoresis, fever(s), palpitations or vomiting Treatment prior to arrival: nitroglycerin Review of Systems Const: Denies: fever(s) or diaphoresis Eyes: Denies: change in vision ENMT: Denies: throat pain Card: Reports: chest pain; Denies: palpitations Resp: Reports: dyspnea (Chronic); Denies: productive cough or non-productive cough GI: Reports: nausea; Denies: abdominal pain or vomiting Musc: Denies: neck pain Psych: Reports: anxiety PFSH ED PFSH: Medical History Allergic reaction Anemia in chronic kidney disease (CKD) BPH NOS w ur obs/LUTS Cardiomyopathy CAD with stent in LAD Cellulitis CHF exacerbation Combined D/S CHF CKD (chronic kidney disease) stage 4, GFR 15-29 ml/min COPD exacerbation Elevated PSA End stage renal disease Erectile dysfunction Gout attack History of pulmonary embolism Hyperkalemia Hyperlipidemia Hypersomnolence Hypertension, essential Hypoalbuminemia Insomnia Ischemic cardiomyopathy Left shoulder pain Mild aortic regurgitation Mild aortic stenosis 12/07/2018: Mean gradient 4.6 mmHg, aortic valve area 2.2 cm? Moderate pulmonary arterial systolic hypertension Respiratory distress Smoking Quit 2020 Stasis dermatitis of lower extremity due to chronic peripheral vascular hypertension Tear of left rotator cuff Surgical History H/O abdominal surgery hernia History of ankle surgery History of back surgery Postoperative state Family History Family/Other Cancer Mother Dementia Diabetes Sister Diabetes CAD (coronary artery disease) Father , AT AGE 78 Brain aneurysm Denies family history of Clotting disorder Hyperlipidemia Psychiatric illness Chronic kidney disease (CKD) Suicide Anesthesia complication Bleeding disorder Family history of premature coronary artery disease Lung disease Hypertension Stroke Social History Smoking and tobacco status: former smoker Quit status (tobacco): has quit using tobacco Year quit tobacco: 2020 Former quit date comment: 0.5 ppd X 15 years Alcohol intake: current Alcohol intake frequency: few times a month Marital status: Current occupational status: disabled History of recent travel: No Physical Exam Const: GENERAL APPEARANCE: cooperative and well kempt ORIENTATION/CONSCIOUSNESS: Yes awake HENMT: COMMON NORMALS: normocephalic, atraumatic and Normal external nose present HEAD & SCALP: normocephalic and atraumatic FACE & SINUS: normal facial exam and face symmetric NOSE: Normal external nose present Eye: COMMON NORMALS: Equal, round and reactive pupils present and EOMs intact bilaterally PUPIL: Yes Equal, round and reactive pupils present Neck/C-Spine: GENERAL: Yes trachea midline Chest: CHEST: Yes Symmetrical chest wall rise Resp: COMMON NORMALS: normal respiratory effort, No use of accessory muscles and clear to auscultation bilaterally AUSCULTATION: clear to auscultation bilaterally Cardio: COMMON NORMALS: regular rate and regular rhythm RATE: regular rate RHYTHM: regular rhythm GI: COMMON NORMALS: Normal to inspection, nondistended, normoactive bowel sounds present, Soft to palpation and non-tender PALPATION: Yes Soft to palpation Extremity: GENERAL: Yes edema (2-3+) Neuro: BRIANA COMA SCALE: document GCS findings Briana coma scale eye opening: Spontaneous Briana coma scale verbal response: Orientated Briana coma scale motor response: Obey commands [place] coma scale total score: 15 SPEECH: speech normal Psych: APPEARANCE: Yes well kempt Course Vital Signs: Vital signs: Vital Signs Temperature 98.4 F 10/10/21 19:17 Pulse Rate 74 10/10/21 19:17 Respiratory Rate 16 10/10/21 19:17 Blood Pressure 110/73 10/10/21 19:17 Pulse Oximetry 98 10/10/21 12:42 MDM - Chest Pain Medical Decision Making White blood cell count is up to 17. 85% neutrophils. Hemoglobin is stable at 9.6. Creatinine is stable at 5.5. Electrolytes are essentially normal. The patient remains tachycardic in the 120s despite metoprolol. His blood pressure is 141/100. He has Nitropaste in place. His saturations are normal. His temperature is mildly elevated, although he is not febrile. His chest x-ray shows bibasilar atelectasis only in a line in good position. Temperature, tachycardia, and leukocytosis are concerning. CTA will be completed of the chest. The patient is due for dialysis at 6 AM. He may have to stay here for dialysis following CTA, given the dye load. CTA still not completed. He will be checked out to Dr. Michelle at shift change. Lab Data : 10/10/21 02:38 10/10/21 02:38 Radiology Impressions Chest X-Ray 10/10/21 02:56 IMPRESSION: Probable mild bilateral basilar atelectasis. Chest CTA 10/10/21 04:46 IMPRESSION: 1. There is no evidence for pulmonary emboli. 2. Mildly prominent mediastinal lymph nodes are seen, the largest seen in the precarinal region measuring 14.3 mm transverse dimension. This lymph node is slightly larger today compared with 04/13/2019. 3. There are no acute chest findings. Knee X-Ray 10/10/21 07:59 IMPRESSION: No acute bone abnormality Laboratory Results WBC 17.2 10^3/uL (4.0-10.0) H 10/10/21 02:38 RBC 3.30 10^6/uL (4.1-5.3) L 10/10/21 02:38 Hgb 9.6 g/dL (11.7-16.6) L 10/10/21 02:38 Hct 30.1 % (42.0-52.0) L 10/10/21 02:38 MCV 91.2 fl (80-94) 10/10/21 02:38 MCH 29.1 pg (28.0-34.0) 10/10/21 02:38 MCHC 31.9 g/dL (30.0-36.0) 10/10/21 02:38 RDW 17.4 % (12.1-15.1) H 10/10/21 02:38 Plt Count 226 10^3/cmm (130-400) 10/10/21 02:38 MPV 11.3 fL (7.4-10.4) H 10/10/21 02:38 Neut % (Auto) 85.0 % 10/10/21 02:38 Lymph % (Auto) 7.8 % 10/10/21 02:38 Humphreys % (Auto) 6.1 % 10/10/21 02:38 Eos % (Auto) 0.1 % 10/10/21 02:38 Baso % (Auto) 0.1 % 10/10/21 02:38 Neut # (Auto) 14.60 10^3/uL (1.8-7.7) H 10/10/21 02:38 Lymph # (Auto) 1.3 10^3/uL (0.8-4.8) 10/10/21 02:38 Humphreys # (Auto) 1.0 10^3/uL (0.2-0.9) H 10/10/21 02:38 Eos # (Auto) 0.0 10^3/uL (0.0-0.8) 10/10/21 02:38 Baso # (Auto) 0.0 10^3/uL (0.0-0.1) 10/10/21 02:38 Nucleated RBC % (auto) 0.2 % 10/10/21 02:38 Nucleated RBCs # 0.0 /100WBC 10/10/21 02:38 ESR 49 mm/hr (0-10) H 10/10/21 02:38 Sodium 136 mmol/L (136-145) 10/10/21 02:38 Potassium 3.8 mmol/L (3.5-5.1) 10/10/21 02:38 Chloride 96 mmol/L (98-107) L 10/10/21 02:38 Carbon Dioxide 20 mmol/L (22-29) L 10/10/21 02:38 Anion Gap 23.8 (5-19) H 10/10/21 02:38 BUN 69 mg/dL (8-23) H 10/10/21 02:38 Creatinine 5.5 mg/dL (0.7-1.2) H 10/10/21 02:38 GFR Calculation 12.6 mL/min (90-130) L 10/10/21 02:38 Glucose 211 mg/dL (65-115) H 10/10/21 02:38 Estimat Average Glucose 126 10/10/21 02:38 Hemoglobin A1c 6.0 % (4.0-6.0) 10/10/21 02:38 Calculated Osmolality 308 mOsm/kg (285-295) H 10/10/21 02:38 Uric Acid 10.2 mg/dL (3.4-7.0) H 10/10/21 02:38 Calcium 6.8 mg/dL (8.5-10.5) L 10/10/21 02:38 Phosphorus 2.6 mg/dL (2.5-4.5) 10/10/21 02:38 Magnesium 1.7 mg/dL (1.7-2.3) 10/10/21 02:38 Total Bilirubin 0.2 mg/dL (0.15-1.2) 10/10/21 02:38 AST 78 U/L (0-40) H 10/10/21 02:38 ALT 25 U/L (0-41) 10/10/21 02:38 Alkaline Phosphatase 150 IU/L (40-130) H 10/10/21 02:38 Creatine Kinase 158 U/L (39-308) 10/10/21 02:38 Troponin T Baseline 89 ng/L (0-15) H 10/10/21 02:38 Troponin T 120 Minute 81.09 ng/L (0-15) H 10/10/21 04:40 Delta Troponin T -7.91 ABS# (0-10) L 10/10/21 04:40 C-Reactive Protein 6.2 mg/L (0.0-4.9) H 10/10/21 02:38 NT-Pro-B Natriuret Pep 28742 pg/mL (0-125) H 10/10/21 02:38 Total Protein 6.2 g/dL (6.6-8.7) L 10/10/21 02:38 Albumin 2.7 g/dL (3.5-5.2) L 10/10/21 02:38 Globulin 3.5 g/dL (1.3-4.6) 10/10/21 02:38 Procalcitonin 0.87 ng/mL (0-0.5) H 10/10/21 02:38 Ethyl Alcohol 15 mg/dL (0-10) H 10/10/21 02:38 Serum Ketones Negative (Negative) 10/10/21 02:38 Discharge Plan Discharge Patient Disposition: Admitted As Inpatient Admit Provider: Anatoly Saunders Clinical Impression: Chest pain, CHF exacerbation, End stage renal disease, Leukocytosis Condition: Stable Sign Out Sign Out Data: Patient Sign Out occurred on 10/10/21 at 06:53. Patient's care was discussed, and care was transferred from to Jessee Michelle DO. Coding Level of Care Code ED Campaign Marketing Manager for Chg Fwd Exam Comprehensive Documented by User: Jessee Michelle DO 10/10/21 08:09 HPI - Chest Pain General: Chief Complaint: Chest Pain Stated Complaint: cp Time Seen by Provider: 10/10/21 02:49 PFSH ED PFSH: Medical History Allergic reaction Anemia in chronic kidney disease (CKD) BPH NOS w ur obs/LUTS Cardiomyopathy CAD with stent in LAD Cellulitis CHF exacerbation Combined D/S CHF CKD (chronic kidney disease) stage 4, GFR 15-29 ml/min COPD exacerbation Elevated PSA End stage renal disease Erectile dysfunction Gout attack History of pulmonary embolism Hyperkalemia Hyperlipidemia Hypersomnolence Hypertension, essential Hypoalbuminemia Insomnia Ischemic cardiomyopathy Left shoulder pain Mild aortic regurgitation Mild aortic stenosis 12/07/2018: Mean gradient 4.6 mmHg, aortic valve area 2.2 cm? Moderate pulmonary arterial systolic hypertension Respiratory distress Smoking Quit 2020 Stasis dermatitis of lower extremity due to chronic peripheral vascular hypertension Tear of left rotator cuff Surgical History H/O abdominal surgery hernia History of ankle surgery History of back surgery Postoperative state Family History Family/Other Cancer Mother Dementia Diabetes Sister Diabetes CAD (coronary artery disease) Father , AT AGE 78 Brain aneurysm Denies family history of Clotting disorder Hyperlipidemia Psychiatric illness Chronic kidney disease (CKD) Suicide Anesthesia complication Bleeding disorder Family history of premature coronary artery disease Lung disease Hypertension Stroke Social History Smoking and tobacco status: former smoker Quit status (tobacco): has quit using tobacco Year quit tobacco: 2020 Former quit date comment: 0.5 ppd X 15 years Alcohol intake: current Alcohol intake frequency: few times a month Marital status: Current occupational status: disabled History of recent travel: No Physical Exam Neuro: BRIANA COMA SCALE: document GCS findings Briana coma scale total score: 15 Course Vital Signs: Vital signs: Vital Signs Temperature 98.4 F 10/10/21 19:17 Pulse Rate 74 10/10/21 19:17 Respiratory Rate 16 10/10/21 19:17 Blood Pressure 110/73 10/10/21 19:17 Pulse Oximetry 98 10/10/21 12:42 MDM - Chest Pain Medical Decision Making White blood cell count is up to 17. 85% neutrophils. Hemoglobin is stable at 9.6. Creatinine is stable at 5.5. Electrolytes are essentially normal. The patient remains tachycardic in the 120s despite metoprolol. His blood pressure is 141/100. He has Nitropaste in place. His saturations are normal. His temperature is mildly elevated, although he is not febrile. His chest x-ray shows bibasilar atelectasis only in a line in good position. Temperature, tachycardia, and leukocytosis are concerning. CTA will be completed of the chest. The patient is due for dialysis at 6 AM. He may have to stay here for dialysis following CTA, given the dye load. CTA still not completed. He will be checked out to Dr. Michelle at shift change. CTA negative. Patient does have leukocytosis she was given steroids at time of discharge but he tells me he did not take them. We will start him on empiric Levaquin cultures done discussed with Dr. Saunders and with Dr. Bates for renal. Also given him another dose of IV Lopressor and p.o. carvedilol. He is not having any chest pain at this time. His last stress test was in June of last year. Orders written Lab Data : 10/10/21 02:38 10/10/21 02:38 Radiology Impressions Chest X-Ray 10/10/21 02:56 IMPRESSION: Probable mild bilateral basilar atelectasis. Chest CTA 10/10/21 04:46 IMPRESSION: 1. There is no evidence for pulmonary emboli. 2. Mildly prominent mediastinal lymph nodes are seen, the largest seen in the precarinal region measuring 14.3 mm transverse dimension. This lymph node is slightly larger today compared with 04/13/2019. 3. There are no acute chest findings. Knee X-Ray 10/10/21 07:59 IMPRESSION: No acute bone abnormality Laboratory Results WBC 17.2 10^3/uL (4.0-10.0) H 10/10/21 02:38 RBC 3.30 10^6/uL (4.1-5.3) L 10/10/21 02:38 Hgb 9.6 g/dL (11.7-16.6) L 10/10/21 02:38 Hct 30.1 % (42.0-52.0) L 10/10/21 02:38 MCV 91.2 fl (80-94) 10/10/21 02:38 MCH 29.1 pg (28.0-34.0) 10/10/21 02:38 MCHC 31.9 g/dL (30.0-36.0) 10/10/21 02:38 RDW 17.4 % (12.1-15.1) H 10/10/21 02:38 Plt Count 226 10^3/cmm (130-400) 10/10/21 02:38 MPV 11.3 fL (7.4-10.4) H 10/10/21 02:38 Neut % (Auto) 85.0 % 10/10/21 02:38 Lymph % (Auto) 7.8 % 10/10/21 02:38 Humphreys % (Auto) 6.1 % 10/10/21 02:38 Eos % (Auto) 0.1 % 10/10/21 02:38 Baso % (Auto) 0.1 % 10/10/21 02:38 Neut # (Auto) 14.60 10^3/uL (1.8-7.7) H 10/10/21 02:38 Lymph # (Auto) 1.3 10^3/uL (0.8-4.8) 10/10/21 02:38 Humphreys # (Auto) 1.0 10^3/uL (0.2-0.9) H 10/10/21 02:38 Eos # (Auto) 0.0 10^3/uL (0.0-0.8) 10/10/21 02:38 Baso # (Auto) 0.0 10^3/uL (0.0-0.1) 10/10/21 02:38 Nucleated RBC % (auto) 0.2 % 10/10/21 02:38 Nucleated RBCs # 0.0 /100WBC 10/10/21 02:38 ESR 49 mm/hr (0-10) H 10/10/21 02:38 Sodium 136 mmol/L (136-145) 10/10/21 02:38 Potassium 3.8 mmol/L (3.5-5.1) 10/10/21 02:38 Chloride 96 mmol/L (98-107) L 10/10/21 02:38 Carbon Dioxide 20 mmol/L (22-29) L 10/10/21 02:38 Anion Gap 23.8 (5-19) H 10/10/21 02:38 BUN 69 mg/dL (8-23) H 10/10/21 02:38 Creatinine 5.5 mg/dL (0.7-1.2) H 10/10/21 02:38 GFR Calculation 12.6 mL/min (90-130) L 10/10/21 02:38 Glucose 211 mg/dL (65-115) H 10/10/21 02:38 Estimat Average Glucose 126 10/10/21 02:38 Hemoglobin A1c 6.0 % (4.0-6.0) 10/10/21 02:38 Calculated Osmolality 308 mOsm/kg (285-295) H 10/10/21 02:38 Uric Acid 10.2 mg/dL (3.4-7.0) H 10/10/21 02:38 Calcium 6.8 mg/dL (8.5-10.5) L 10/10/21 02:38 Phosphorus 2.6 mg/dL (2.5-4.5) 10/10/21 02:38 Magnesium 1.7 mg/dL (1.7-2.3) 10/10/21 02:38 Total Bilirubin 0.2 mg/dL (0.15-1.2) 10/10/21 02:38 AST 78 U/L (0-40) H 10/10/21 02:38 ALT 25 U/L (0-41) 10/10/21 02:38 Alkaline Phosphatase 150 IU/L (40-130) H 10/10/21 02:38 Creatine Kinase 158 U/L (39-308) 10/10/21 02:38 Troponin T Baseline 89 ng/L (0-15) H 10/10/21 02:38 Troponin T 120 Minute 81.09 ng/L (0-15) H 10/10/21 04:40 Delta Troponin T -7.91 ABS# (0-10) L 10/10/21 04:40 C-Reactive Protein 6.2 mg/L (0.0-4.9) H 10/10/21 02:38 NT-Pro-B Natriuret Pep 18849 pg/mL (0-125) H 10/10/21 02:38 Total Protein 6.2 g/dL (6.6-8.7) L 10/10/21 02:38 Albumin 2.7 g/dL (3.5-5.2) L 10/10/21 02:38 Globulin 3.5 g/dL (1.3-4.6) 10/10/21 02:38 Procalcitonin 0.87 ng/mL (0-0.5) H 10/10/21 02:38 Ethyl Alcohol 15 mg/dL (0-10) H 10/10/21 02:38 Serum Ketones Negative (Negative) 10/10/21 02:38 Discharge Plan Discharge Patient Disposition: Admitted As Inpatient Admit Provider: Anatoly Saunders Clinical Impression: Chest pain, CHF exacerbation, End stage renal disease, Leukocytosis Condition: Stable Sign Out Sign Out Data: Patient Sign Out occurred on 10/10/21 at 06:53. Patient's care was discussed, and care was transferred from to Jessee Michelle DO. Coding Level of Care Code ED Campaign Marketing Manager for Chg Fwd Exam Comprehensive
--- NOTE | 2021-10-10 05:28 | PC.NURSE ---
EKG done at 0500 and shown to ER doctor
[2021-10-10 05:33] LABS: Troponin 5 2HR 81.09 ng/L (0-15)
[2021-10-10] MEDS: iodixanol 320 mg/mL 100mL Btl IV (06:23)
--- NOTE | 2021-10-10 07:59 | XRR_ITS ---
PROCEDURE INFORMATION: Exam: XR Right Knee Exam date and time: 10/10/2021 8:08 AM Age: 66 years old Clinical indication: Pain; Knee; Left TECHNIQUE: Imaging protocol: Radiologic exam of the Right knee. Views: 1 or 2 views. COMPARISON: US CV venous duplex [facility] [id number] 10/02/2021 2:22 PM FINDINGS: Bones/joints: Negative for acute bony abnormality Soft tissues: Vascular calcifications posterior knee XR/XR knee RT 1-2V [id number] IMPRESSION: No acute bone abnormality
[2021-10-10] MEDS: carvedilol 25 mg Tablet PO ×2 (08:11→14:29)
--- NOTE | 2021-10-10 08:13 | PC.PHAR ---
pt states he takes care of his own medications-pt states he was discharged on 10/07/21 states he is taking the meds he was discharged him with except for 2 expensive inhalers pt unsure of names of inhalers-rx written 08/05/21 for combivent respimat and on 08/07/21 anoro-pt states he is unsure if he has been taking the prednisone 20mg bid for 7 days filled 10/07/21-ext med history shows on 06/10/21 90d/s that montelukast 10mg daily was filled pt states he is unsure if he was taking med rec done when he was admitted and discharged on 10/07/21 didnt have this medication listed-
[2021-10-10 08:15] LABS: Ketone (Acetest) Serum Negative (Negative)
[2021-10-10 08:34] LABS: Erythrocyte Sedimentation Rate 49 mm/hr (0-10)
[2021-10-10 08:40] LABS: C Reactive Protein 6.2 mg/L (0.0-4.9); Magnesium 1.7 mg/dL (1.7-2.3); Phosphorus 2.6 mg/dL (2.5-4.5); Uric Acid 10.2 mg/dL (3.4-7.0)
[2021-10-10 08:42] LABS: Specific Gravity, Urine 1.005 (1.005-1.030); Urine Appearance Clear (CLEAR); Urine Color Yellow (Yellow); pH Urine 6.5 (5-7)
[2021-10-10 08:42] LABS: Estmated Average Glucose 126
[2021-10-10 08:43] LABS: Add Urine Microscopic? YES; Bilirubin Urine Neg (Negative); Blood Urine Neg (Negative); Glucose Urine UA Trace (Normal); Ketones Urine Negative (Negative); Leukocyte Esterase Urine Negative (Negative); Nitrate Urine Negative (Negative); Protein Urine 3+ (Negative); Urobilinogen Urine Norm (Negative)
[2021-10-10 08:45] LABS: Procalcitonin 0.87 ng/mL (0-0.5)
[2021-10-10 08:50] LABS: Add Urine Culture? No; Bacteria Urine TRACE /hpf; Charge for UA Resulting for Rev; Mucus Urine TRACE /hpf; RBC Urine RARE /hpf (0-2); Squamous Epithelial Cell Urine 0-4 /hpf (0-5)
--- NOTE | 2021-10-10 08:56 | ECG_ITS ---
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 Measurements Intervals [place] Rate: 111 P: 40 IL: 124 QRS: -63 QRSD: 104 T: 172 QT: 355 QTc: 484 Interpretive Statements SINUS TACHYCARDIA WITH OCCASIONAL VENTRICULAR PREMATURE COMPLEXES WITH OCCASIONAL SUPRAVENTRICULAR PREMATURE COMPLEXES LEFT AXIS DEVIATION [QRS AXIS < -30] POSSIBLE ANTERIOR MYOCARDIAL INFARCTION , OF INDETERMINATE AGE [30 ms Q WAVE IN V3/V4, OR R < 0.2 mV IN V4] MODERATE T-WAVE ABNORMALITY, CONSIDER LATERAL ISCHEMIA [-0.1+ mV T-WAVE IN I/aVL/V5/V6] Compared to ECG 10/10/2021 05:07:26 Ventricular premature complex(es) now present T-wave abnormality now present Possible ischemia now present Short [place] interval no longer present Left ventricular hypertrophy no longer present ST (T wave) deviation no longer present Myocardial infarct finding still present Electronically Signed On 10-11-2021 23:44:05 CDT by Ben Rincon M.D. [email or web address]
[2021-10-10] MEDS: levofloxacin-dextrose 5 % 750 MG/150 ML PREMIX 100 MG IV (09:05)
--- NOTE | 2021-10-10 09:22 | PM.CONSULT ---
Providers/Reason For Consult Consulting Physician/Specialty*: Tonya Dinero DO, telenephrology Reason for Consult*: ESRD Requesting Physician: Anatoly Saunders MD Primary Care Provider: Kian Colon MD History of Present Illness History of Present Illness Fredy Hammonds is a 66 year old male presented to ER for evaluation of chest pain. + ischemic cardiomyopathy, EF 20%. New ESRD, HD T/Th/S Medications/Allergies Home Medications Medication Instructions Recorded Confirmed Last Taken Type Cane #1 ea 10/03/20 10/10/21 Unknown Rx sildenafil 100 mg tablet 50 mg PO DAILY PRN #30 tab 04/01/21 10/10/21 Unknown Rx fluticasone propionate 50 1 spray INTRANASAL BID 30 Days #16 08/05/21 10/10/21 Unknown Rx mcg/actuation nasal g spray,suspension (Flonase Allergy Relief) ipratropium 20 mcg-albuterol 100 1 puff INHALATION Q4H PRN 30 Days 08/05/21 10/10/21 Unknown Rx mcg/actuation mist for inhalation #4 g (Combivent Respimat) umeclidinium 62.5 mcg-vilanterol 1 inh INHALATION DAILY 60 Days #60 08/07/21 10/10/21 Unknown Rx 25 mcg/actuation powdr for ea inhalation (Anoro Ellipta) triamcinolone acetonide 0.5 % 1 applic TOPICAL DAILY #15 g 09/09/21 10/10/21 Unknown Rx topical cream albuterol sulfate 2.5 mg INHALATION QID PRN 10/02/21 10/10/21 Unknown History aspirin 81 mg tablet,delayed 81 mg PO DAILY 30 Days #30 tab 10/07/21 10/10/21 Unknown Rx release atorvastatin 20 mg tablet 20 mg PO DAILY 30 Days #30 tab 10/07/21 10/10/21 Unknown Rx calcium acetate 667 mg tablet 1,334 mg PO TIDWM 30 Days #90 tab 10/07/21 10/10/21 Unknown Rx (Calphron) carvedilol 25 mg tablet 25 mg PO BID 30 Days #0 tab 10/07/21 10/10/21 Unknown Rx furosemide 40 mg tablet 80 mg PO BID@08,16 30 Days #80 tab 10/07/21 10/10/21 Unknown Rx hydralazine 25 mg tablet 25 mg PO TID 30 Days #90 tab 10/07/21 10/10/21 Unknown Rx hydrocodone 5 mg-acetaminophen 325 1 tab PO BID PRN 5 Days #10 tab 10/07/21 10/10/21 Unknown Rx mg tablet lisinopril 20 mg tablet 20 mg PO DAILY 30 Days #30 tab 10/07/21 10/10/21 Unknown Rx nitroglycerin 0.4 mg sublingual 0.4 mg SUBLINGUAL Q5M PRN 30 Days 10/07/21 10/10/21 Unknown Rx tablet (Nitrostat) #30 tab prednisone 20 mg tablet 20 mg PO BID 7 Days #14 tab 10/07/21 10/10/21 Unknown Rx albuterol sulfate 90 mcg/actuation 2 puff INHALATION Q6H PRN 10/10/21 10/10/21 Unknown History aerosol inhaler (ProAir HFA) trazodone 50 mg tablet 25 mg PO BEDTIME 10/10/21 10/10/21 Unknown History Allergies Allergy/AdvReac Type Severity Reaction Status Date / Time No Known Allergies Allergy Verified 10/10/21 07:52 PFSH Acute PFSH: Medical History Allergic reaction Anemia in chronic kidney disease (CKD) BPH NOS w ur obs/LUTS Cardiomyopathy CAD with stent in LAD Cellulitis CHF exacerbation Combined D/S CHF CKD (chronic kidney disease) stage 4, GFR 15-29 ml/min COPD exacerbation Elevated PSA End stage renal disease Erectile dysfunction Gout attack History of pulmonary embolism Hyperkalemia Hyperlipidemia Hypersomnolence Hypertension, essential Hypoalbuminemia Insomnia Ischemic cardiomyopathy Left shoulder pain Mild aortic regurgitation Mild aortic stenosis 12/07/2018: Mean gradient 4.6 mmHg, aortic valve area 2.2 cm? Moderate pulmonary arterial systolic hypertension Respiratory distress Smoking Quit 2020 Stasis dermatitis of lower extremity due to chronic peripheral vascular hypertension Tear of left rotator cuff Surgical History H/O abdominal surgery hernia History of ankle surgery History of back surgery Postoperative state Family History Family/Other Cancer Mother Dementia Diabetes Sister Diabetes CAD (coronary artery disease) Father , AT AGE 78 Brain aneurysm Denies family history of Clotting disorder Hyperlipidemia Psychiatric illness Chronic kidney disease (CKD) Suicide Anesthesia complication Bleeding disorder Family history of premature coronary artery disease Lung disease Hypertension Stroke Social History Smoking and tobacco status: former smoker Quit status (tobacco): has quit using tobacco Year quit tobacco: 2020 Former quit date comment: 0.5 ppd X 15 years Alcohol intake: current Alcohol intake frequency: few times a month Marital status: Current occupational status: disabled History of recent travel: No Vitals/I&O/Wt Last Vital Signs Temp 99.2 F 10/10/21 02:49 Pulse 113 H 10/10/21 08:23 Resp 16 10/10/21 08:23 BP 147/117 10/10/21 08:23 Pulse Ox 99 10/10/21 08:23 Weight last 48 hrs Weight 80.286 kg Physical Exam Const: COMMON NORMALS: no acute distress and alert Neck/C-Spine: OTHER: tunneled IJ HD catheter exits below right clavicle Extremity: NARRATIVE EXTREMITY EXAM: + edema Neuro: SENSORIUM/ORIENTATION: Yes alert Data : 10/10/21 02:38 10/10/21 02:38 Other Labs: uric acid 10.2, flaquita Ca 8, albumin 2.7, phos 2.6 Micro: Microbiology 10/10/21 08:48 Blood Culture - Preliminary Blood SPECIMEN COLLECTED 10/10/21 08:50 Blood Culture - Preliminary Blood SPECIMEN COLLECTED CTA Chest: Radiologist's impression: Chest CTA? 10/10/21 04:46 IMPRESSION: 1. There is no evidence for pulmonary emboli. 2. Mildly prominent mediastinal lymph nodes are seen, the largest seen in the precarinal region measuring 14.3 mm transverse dimension. This lymph node is slightly larger today compared with 04/13/2019. 3. There are no acute chest findings. ? CXR: Radiologist's impression: Tubes, catheters and devices: A dialysis catheter is placed via the right internal jugular vein with its tip at the level the superior cavoatrial junction. EKG leads overlie chest. Lungs: There strandy opacity seen in the lower hemithoraces likely representing atelectasis. Pleural spaces: Unremarkable. No pleural effusion. No pneumothorax. Heart/Mediastinum: Unremarkable. No cardiomegaly. Bones/joints: Unremarkable. A&P Assessment and plan (1) End stage renal disease: Status: Acute Plan 1. ESRD: HD today 2. Chest pain: plan for cardiac cath Tuesday 3. Hypertension: can increase dose of lisinopril if BP persistently high after fluid removal at dialysis 4. Leukocytosis, rule-out line-related bacteremia: BC sent, IV vanco ordered 5. Low phosphorus: reduce dose calcium acetate to 667 mg with each meal Consult Attestations Medical Necessity Statement: see above Time Spent in Patient Care: 16 - 35 minutes Coding Level of Care Code Acute Emotional Disabilities Teacher for Ramana Pillai Diagnoses End stage renal disease N18.6
[2021-10-10 09:26] LABS: Lactic Sepsis W/Reflex 1.1 mmol/L (0.5-2.2)
--- NOTE | 2021-10-10 10:21 | USCV_ITS ---
Fredy Hammonds Age: 66 Gender: M : 1955 Exam Date: 10/10/2021 10:45 Ordering Phys: Anatoly Saunders MD Technologist: Nicolas Andersen Exam Location: [facility] [place] Indication: ? ejection fraction BP: 144 / 83 HR: 106 Rhythm: Sinus Technical Quality: , Good MEASUREMENTS (Male / Female) Normal Values 2D ECHO LV Diastolic Diameter PLAX 5.1 cm 4.2 - 5.9 / 3.9 - 5.3 cm LV Systolic Diameter PLAX 4.8 cm IVS Diastolic Thickness 1.6 cm 0.6 - 1.0 / 0.6 - 0.9 cm IVS Systolic Thickness 1.6 cm LVPW Diastolic Thickness 1.5 cm 0.6 - 1.0 / 0.6 - 0.9 cm LVPW Systolic Thickness 1.8 cm LVOT Diameter 2.0 cm LV Ejection Fraction 2D Teich 14.7 % LV Ejection Fraction MOD 2C 37.6 % LV Ejection Fraction 2C AL 39.0 % LA Diameter 3.8 cm Aorta at Sinotubular Diameter 2.8 cm IVC Diameter 1.4 cm M-MODE Aortic Annulus Diameter 3.1 cm LA Ao Ratio MM 1.3 MV E Point Septal Separation 2.9 cm FINDINGS Left Ventricle Right Ventricle Right Atrium Left Atrium Mitral Valve Aortic Valve Tricuspid Valve Pulmonic Valve Pericardium Aorta IVC CONCLUSIONS This is a limited echocardiogram performed to assess LV systolic function. LV systolic function is severely reduced with EF of 20-25%. Severe global hypokinesis is seen. Compared to prior echocardiogram from 10/02/2021, no significant changes are seen Ben Rincon MD (Electronically Signed) Final Date: 11 October 2021 10:44 S
--- NOTE | 2021-10-10 10:48 | P.HP_ITS ---
Providers/Chief Complaint Admitting Physician: Anatoly Saunders MD Primary Care Provider: Kian Colon MD Chief Complaint: cp History of Present Illness Fredy Hammonds is a 66 year old male end-stage renal disease on dialysis, history of CAD, history of combined systolic and diastolic CHF, moderate pulm hypertension, history of obstructive sleep apnea, COPD, mild aortic stenosis, recent hospitalization for acute respiratory failure secondary to fluid overload and systolic and diastolic CHF, end-stage renal disease requiring dialysis, gouty attack who presents to [facility] for complaints of chest pain. Patient tells me that he has had chest pain for the last day, substernal, nonradiating, with shortness of breath, he tells me also his edema in his leg has also returned, he does tell me he has taken some of his medication, is not exactly sure which medications. He currently denies any fevers, no knee pain, no abdominal pain, no diarrhea, no cough, no dysuria, no nausea, no vomiting, Review of Systems Const: Denies: fever(s), chills, fatigue or malaise Eyes: Denies: change in vision ENMT: Denies: nasal congestion Resp: Denies: productive cough, non-productive cough or wheezing GI: Denies: abdominal pain, nausea, vomiting or diarrhea : Denies: flank pain, difficulty urinating, dysuria or urinary frequency Musc: Denies: neck pain or back pain Skin/Breast: Denies: rash Neuro: Denies: headache(s) or dizziness Medications/Allergies Home Medications Medication Instructions Recorded Confirmed Last Taken Type Cane #1 ea 10/03/20 10/10/21 Unknown Rx sildenafil 100 mg tablet 50 mg PO DAILY PRN #30 tab 04/01/21 10/10/21 Unknown Rx fluticasone propionate 50 1 spray INTRANASAL BID 30 Days #16 08/05/21 10/10/21 Unknown Rx mcg/actuation nasal g spray,suspension (Flonase Allergy Relief) ipratropium 20 mcg-albuterol 100 1 puff INHALATION Q4H PRN 30 Days 08/05/21 10/10/21 Unknown Rx mcg/actuation mist for inhalation #4 g (Combivent Respimat) umeclidinium 62.5 mcg-vilanterol 1 inh INHALATION DAILY 60 Days #60 08/07/21 10/10/21 Unknown Rx 25 mcg/actuation powdr for ea inhalation (Anoro Ellipta) triamcinolone acetonide 0.5 % 1 applic TOPICAL DAILY #15 g 09/09/21 10/10/21 Unknown Rx topical cream albuterol sulfate 2.5 mg INHALATION QID PRN 10/02/21 10/10/21 Unknown History aspirin 81 mg tablet,delayed 81 mg PO DAILY 30 Days #30 tab 10/07/21 10/10/21 Unknown Rx release atorvastatin 20 mg tablet 20 mg PO DAILY 30 Days #30 tab 10/07/21 10/10/21 Unknown Rx calcium acetate 667 mg tablet 1,334 mg PO TIDWM 30 Days #90 tab 10/07/21 10/10/21 Unknown Rx (Calphron) carvedilol 25 mg tablet 25 mg PO BID 30 Days #0 tab 10/07/21 10/10/21 Unknown Rx furosemide 40 mg tablet 80 mg PO BID@08,16 30 Days #80 tab 10/07/21 10/10/21 Unknown Rx hydralazine 25 mg tablet 25 mg PO TID 30 Days #90 tab 10/07/21 10/10/21 Unknown Rx hydrocodone 5 mg-acetaminophen 325 1 tab PO BID PRN 5 Days #10 tab 10/07/21 10/10/21 Unknown Rx mg tablet lisinopril 20 mg tablet 20 mg PO DAILY 30 Days #30 tab 10/07/21 10/10/21 Unknown Rx nitroglycerin 0.4 mg sublingual 0.4 mg SUBLINGUAL Q5M PRN 30 Days 10/07/21 10/10/21 Unknown Rx tablet (Nitrostat) #30 tab prednisone 20 mg tablet 20 mg PO BID 7 Days #14 tab 10/07/21 10/10/21 Unknown Rx albuterol sulfate 90 mcg/actuation 2 puff INHALATION Q6H PRN 10/10/21 10/10/21 Unknown History aerosol inhaler (ProAir HFA) trazodone 50 mg tablet 25 mg PO BEDTIME 10/10/21 10/10/21 Unknown History Allergies Allergy/AdvReac Type Severity Reaction Status Date / Time No Known Allergies Allergy Verified 10/10/21 07:52 PFSH Acute PFSH: Medical History Allergic reaction Anemia in chronic kidney disease (CKD) BPH NOS w ur obs/LUTS Cardiomyopathy CAD with stent in LAD Cellulitis CHF exacerbation Combined D/S CHF CKD (chronic kidney disease) stage 4, GFR 15-29 ml/min COPD exacerbation Elevated PSA End stage renal disease Erectile dysfunction Gout attack History of pulmonary embolism Hyperkalemia Hyperlipidemia Hypersomnolence Hypertension, essential Hypoalbuminemia Insomnia Ischemic cardiomyopathy Left shoulder pain Mild aortic regurgitation Mild aortic stenosis 12/07/2018: Mean gradient 4.6 mmHg, aortic valve area 2.2 cm? Moderate pulmonary arterial systolic hypertension Respiratory distress Smoking Quit 2020 Stasis dermatitis of lower extremity due to chronic peripheral vascular hypertension Tear of left rotator cuff Surgical History H/O abdominal surgery hernia History of ankle surgery History of back surgery Postoperative state Family History Family/Other Cancer Mother Dementia Diabetes Sister Diabetes CAD (coronary artery disease) Father , AT AGE 78 Brain aneurysm Denies family history of Clotting disorder Hyperlipidemia Psychiatric illness Chronic kidney disease (CKD) Suicide Anesthesia complication Bleeding disorder Family history of premature coronary artery disease Lung disease Hypertension Stroke Social History Smoking and tobacco status: former smoker Quit status (tobacco): has quit using tobacco Year quit tobacco: 2020 Former quit date comment: 0.5 ppd X 15 years Alcohol intake: current Alcohol intake frequency: few times a month Marital status: Current occupational status: disabled History of recent travel: No Vitals/I&O/Wt Last Vital Signs Temp 99.2 F 10/10/21 02:49 Pulse 109 H 10/10/21 08:30 Resp 15 10/10/21 08:30 BP 130/93 10/10/21 08:30 Pulse Ox 99 10/10/21 08:30 Weight last 48 hrs Weight 80.286 kg Physical Exam Const: COMMON NORMALS: no acute distress and patient oriented x3 HENMT: COMMON NORMALS: normocephalic HEAD & SCALP: normocephalic Neck/C-Spine: COMMON NORMALS: no JVD Resp: COMMON NORMALS: normal respiratory effort, No retractions, No use of accessory muscles and clear to auscultation bilaterally AUSCULTATION: clear to auscultation bilaterally Cardio: COMMON NORMALS: no JVD, regular rate, regular rhythm, S1 normal heart sound present and S2 normal heart sound present RATE: regular rate RHYTHM: regular rhythm HEART SOUNDS: S1 normal heart sound present and S2 normal heart sound present GI: COMMON NORMALS: Normal to inspection, nondistended, normoactive bowel sounds present, Soft to palpation, non-tender, No hepatosplenomegaly present, no masses and no bruits PALPATION: Yes Soft to palpation and Yes No hepatosplenomegaly present Extremity: COMMON NORMALS: capillary refill normal, no clubbing, cyanosis or edema, no calf tenderness and no pedal edema Neuro: COMMON NORMALS: patient oriented x3, CN's II-XII intact bilaterally, moves all extremities and no focal motor deficits Psych: COMMON NORMALS: mental status grossly normal Skin: OTHER: Right dialysis catheter, in place , No overlying skin changes Bilateral knees, no significant swelling, no significant erythema Right knee, no significant erythema, no significant swelling Data : 10/10/21 02:38 10/10/21 02:38 Micro: Microbiology 10/10/21 08:48 Blood Culture - Preliminary Blood SPECIMEN COLLECTED 10/10/21 08:50 Blood Culture - Preliminary Blood SPECIMEN COLLECTED A&P Assessment and plan (1) Chest pain: Status: Acute (2) Leukocytosis: Status: Acute (3) End stage renal disease: Status: Acute (4) Systolic CHF: Status: Acute (5) Hyperlipidemia: Status: Acute (6) Mild aortic regurgitation: Status: Acute (7) CKD (chronic kidney disease) stage 4, GFR 15-29 ml/min: Status: Acute (8) Hypertension, essential: Status: Acute (9) Cellulitis: Status: Acute (10) Obstructive sleep apnea: Status: Acute (11) Moderate pulmonary arterial systolic hypertension: Status: Acute (12) Anemia in chronic kidney disease (CKD): Status: Acute (13) CHF exacerbation: Status: Acute (14) NSTEMI (non-ST elevated myocardial infarction): Status: Acute Plan Fluid overload, pulmonary edema, bilateral extremity edema -Likely secondary to systolic CHF exacerbation -End-stage renal disease, will receive dialysis, hopefully will get fluid removed -Continue Lasix 80 twice daily IV -Full code -Heparin for DVT prophylaxis Chest pain -NSTEMI -No acute ST-T wave changes -Had a cardiac stress test June 19, 2020 Large area of old myocardial infarction versus scarring noted in the basal to ?distal inferior and inferolateral wall.? No ischemia detected on the study.? ?EKG segment will be documented separately -His last echocardiogram showed an EF of 20%, with global left ventricular hypokinesia -The thought was during his last hospitalization that the EF decreased could be related to noncompliance, noncompliance with hypertensive medications, worsening renal failure, plans on medical optimization -However with complaints of chest pain, and drop in his EF will consult cardiology for cardiac cath Plan -Continue aspirin, statin, Coreg -Telemetry monitoring -Serial EKGs, serial troponins -Monitor chest pain -Consult cardiology, plans on cardiac catheterization on Tuesday Leukocytosis -No evidence of UTI -No significant evidence of respiratory tract infection -On examination of bilateral knees, no significant evidence of infection -On his last hospital admission, on discharge, he developed right knee swelling, I thought it was gouty attack, it significantly resolved with Solu-Medrol, I did discharge him on prednisone, we were unsure if he took prednisone at home -The right dialysis catheter was placed, does not look infected Plan -I think that his leukocytosis is likely secondary to prednisone and Solu-Medrol -However we will repeat blood cultures, as he had dialysis catheter placed -Also do an echocardiogram to evaluate cardiac valves -Pro-Vikas, CRP, ESR -Start vancomycin until blood cultures come back negative Moderate pulmonary hypertension End-stage renal disease, receiving dialysis here in the hospital, nephrology on consult Hyperlipidemia Gouty attack, right knee does not look swollen, morphine for pain, hold off on steroids until infection can be ruled out Attestations Medical Necessity Statement*: Patient requires hospitalization for chest pain, NSTEMI, fluid overload, systolic CHF exacerbation, leukocytosis, inpatient, greater than 2 midnights Coding Level of Care Code Acute Director Of Women'S Services for [facility] Fwd Diagnoses Chest pain R07.9 Leukocytosis D72.829 End stage renal disease N18.6 Systolic CHF I50.20 Hyperlipidemia E78.5 Mild aortic regurgitation I35.1 CKD (chronic kidney disease) stage 4, GFR 15-29 ml/min N18.4 Hypertension, essential I10 Cellulitis L03.90 Obstructive sleep apnea G47.33 Moderate pulmonary arterial systolic hypertension I27.21 Anemia in chronic kidney disease (CKD) N18.9; D63.1 CHF exacerbation I50.9 NSTEMI (non-ST elevated myocardial infarction) I21.4
--- NOTE | 2021-10-10 11:34 | ECG_ITS ---
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 Measurements Intervals [place] Rate: 108 P: 127 NC: 115 QRS: 234 QRSD: 103 T: 16 QT: 364 QTc: 489 Interpretive Statements ECTOPIC ATRIAL TACHYCARDIA WITH SHORT NC INTERVAL INCOMPLETE RIGHT BUNDLE BRANCH BLOCK [90+ ms QRS DURATION, TERMINAL R IN V1/V2, 40+ ms S IN I/aVL/V4/V5/V6] ANTEROLATERAL MYOCARDIAL INFARCTION , OF INDETERMINATE AGE [40+ ms Q WAVE IN I/aVL/V3-V6] Compared to ECG 10/10/2021 08:59:00 Short NC interval now present Incomplete right bundle-branch block now present Sinus tachycardia no longer present Ventricular premature complex(es) no longer present Left-axis deviation no longer present T-wave abnormality no longer present Possible ischemia no longer present Myocardial infarct finding still present Electronically Signed On 10-11-2021 23:38:59 CDT by Ben Rincon M.D. [email or web address]
[2021-10-10 11:43] LABS: Alcohol Level 15 mg/dL (0-10)
--- NOTE | 2021-10-10 11:45 | PM.CONSULT ---
Providers/Reason For Consult Attending Physician: Anatoly Saunders MD Primary Care Provider: Kian Colon MD History of Present Illness History of Present Illness Fredy Hammonds is a 66 year old male Medications/Allergies Home Medications Medication Instructions Recorded Confirmed Last Taken Type Cane #1 ea 10/03/20 10/10/21 Unknown Rx sildenafil 100 mg tablet 50 mg PO DAILY PRN #30 tab 04/01/21 10/10/21 Unknown Rx fluticasone propionate 50 1 spray INTRANASAL BID 30 Days #16 08/05/21 10/10/21 Unknown Rx mcg/actuation nasal g spray,suspension (Flonase Allergy Relief) ipratropium 20 mcg-albuterol 100 1 puff INHALATION Q4H PRN 30 Days 08/05/21 10/10/21 Unknown Rx mcg/actuation mist for inhalation #4 g (Combivent Respimat) umeclidinium 62.5 mcg-vilanterol 1 inh INHALATION DAILY 60 Days #60 08/07/21 10/10/21 Unknown Rx 25 mcg/actuation powdr for ea inhalation (Anoro Ellipta) triamcinolone acetonide 0.5 % 1 applic TOPICAL DAILY #15 g 09/09/21 10/10/21 Unknown Rx topical cream albuterol sulfate 2.5 mg INHALATION QID PRN 10/02/21 10/10/21 Unknown History aspirin 81 mg tablet,delayed 81 mg PO DAILY 30 Days #30 tab 10/07/21 10/10/21 Unknown Rx release atorvastatin 20 mg tablet 20 mg PO DAILY 30 Days #30 tab 10/07/21 10/10/21 Unknown Rx calcium acetate 667 mg tablet 1,334 mg PO TIDWM 30 Days #90 tab 10/07/21 10/10/21 Unknown Rx (Calphron) carvedilol 25 mg tablet 25 mg PO BID 30 Days #0 tab 10/07/21 10/10/21 Unknown Rx furosemide 40 mg tablet 80 mg PO BID@08,16 30 Days #80 tab 10/07/21 10/10/21 Unknown Rx hydralazine 25 mg tablet 25 mg PO TID 30 Days #90 tab 10/07/21 10/10/21 Unknown Rx hydrocodone 5 mg-acetaminophen 325 1 tab PO BID PRN 5 Days #10 tab 10/07/21 10/10/21 Unknown Rx mg tablet lisinopril 20 mg tablet 20 mg PO DAILY 30 Days #30 tab 10/07/21 10/10/21 Unknown Rx nitroglycerin 0.4 mg sublingual 0.4 mg SUBLINGUAL Q5M PRN 30 Days 10/07/21 10/10/21 Unknown Rx tablet (Nitrostat) #30 tab prednisone 20 mg tablet 20 mg PO BID 7 Days #14 tab 10/07/21 10/10/21 Unknown Rx albuterol sulfate 90 mcg/actuation 2 puff INHALATION Q6H PRN 10/10/21 10/10/21 Unknown History aerosol inhaler (ProAir HFA) trazodone 50 mg tablet 25 mg PO BEDTIME 10/10/21 10/10/21 Unknown History Allergies Allergy/AdvReac Type Severity Reaction Status Date / Time No Known Allergies Allergy Verified 10/10/21 07:52 PFSH Acute PFSH: Medical History Allergic reaction Anemia in chronic kidney disease (CKD) BPH NOS w ur obs/LUTS Cardiomyopathy CAD with stent in LAD Cellulitis CHF exacerbation Combined D/S CHF CKD (chronic kidney disease) stage 4, GFR 15-29 ml/min COPD exacerbation Elevated PSA End stage renal disease Erectile dysfunction Gout attack History of pulmonary embolism Hyperkalemia Hyperlipidemia Hypersomnolence Hypertension, essential Hypoalbuminemia Insomnia Ischemic cardiomyopathy Left shoulder pain Mild aortic regurgitation Mild aortic stenosis 12/07/2018: Mean gradient 4.6 mmHg, aortic valve area 2.2 cm? Moderate pulmonary arterial systolic hypertension Respiratory distress Smoking Quit 2020 Stasis dermatitis of lower extremity due to chronic peripheral vascular hypertension Tear of left rotator cuff Surgical History H/O abdominal surgery hernia History of ankle surgery History of back surgery Postoperative state Family History Family/Other Cancer Mother Dementia Diabetes Sister Diabetes CAD (coronary artery disease) Father , AT AGE 78 Brain aneurysm Denies family history of Clotting disorder Hyperlipidemia Psychiatric illness Chronic kidney disease (CKD) Suicide Anesthesia complication Bleeding disorder Family history of premature coronary artery disease Lung disease Hypertension Stroke Social History Smoking and tobacco status: former smoker Quit status (tobacco): has quit using tobacco Year quit tobacco: 2020 Former quit date comment: 0.5 ppd X 15 years Alcohol intake: current Alcohol intake frequency: few times a month Marital status: Current occupational status: disabled History of recent travel: No Vitals/I&O/Wt Last Vital Signs Temp 99.2 F 10/10/21 02:49 Pulse 109 H 10/10/21 08:30 Resp 15 10/10/21 08:30 BP 130/93 10/10/21 08:30 Pulse Ox 99 10/10/21 08:30 Weight last 48 hrs Weight 177 lb Data : 10/10/21 02:38 10/10/21 02:38 Micro: Microbiology 10/10/21 08:48 Blood Culture - Preliminary Blood SPECIMEN COLLECTED 10/10/21 08:50 Blood Culture - Preliminary Blood SPECIMEN COLLECTED Coding Level of Care Code Acute Supervisor Fertilizer for Ramana Pillai
[2021-10-10 12:47] LABS: Troponin(5th) Baseline 79 ng/L (0-15)
[2021-10-10 12:54] LABS: Hepatitis B Surface Antigen Non-Reactive (Nonreactive)
--- NOTE | 2021-10-10 13:34 | ECG_ITS ---
[facility] Test Date: 2021-10-10 Pat Name: Fredy Hammonds Department: Room: 256 Gender: Male Therapy Director: : 1955 Requested By: Anatoly Saunders Order Number: [id number] Arianne MD: Ben Rincon M.D. Measurements Intervals [place] Rate: 111 P: 53 AK: 112 QRS: -47 QRSD: 103 T: 163 QT: 356 QTc: 484 Interpretive Statements SINUS TACHYCARDIA WITH SHORT AK INTERVAL LEFT AXIS DEVIATION [QRS AXIS < -30] INCOMPLETE RIGHT BUNDLE BRANCH BLOCK [90+ ms QRS DURATION, TERMINAL R IN V1/V2, 40+ ms S IN I/aVL/V4/V5/V6] LEFT VENTRICULAR HYPERTROPHY AND ST-T CHANGE [VOLTAGE CRITERIA PLUS ST/T ABNORMALITY] POSSIBLE ANTERIOR MYOCARDIAL INFARCTION , OF INDETERMINATE AGE [30 ms Q WAVE IN V3/V4, OR R < 0.2 mV IN V4] Compared to ECG 10/10/2021 12:34:33 Left-axis deviation now present Left ventricular hypertrophy now present ST (T wave) deviation now present Myocardial infarct finding still present Electronically Signed On 10-11-2021 23:44:00 CDT by Ben Rincon M.D. [id number]
[2021-10-10 13:48] LABS: Hepatitis C Virus Antibody Reactive (Nonreactive)
[2021-10-10] MEDS: heparin 5,000 unit/mL INJ 1 mL 5000 UNIT SUBCUT (14:22)
[2021-10-10] MEDS: trazodone 50 mg Tablet 25 MG PO (14:24)
[2021-10-10] MEDS: lisinopril 20 mg Tablet PO (14:26)
[2021-10-10] MEDS: FUROsemide 10 mg/mL SDV 10mL 80 MG IVP (14:26)
[2021-10-10] MEDS: hyDRALAzine 25 mg Tablet PO ×2 (14:26→20:31)
[2021-10-10] MEDS: aspirin 81 mg EC Tablet PO (14:29)
[2021-10-10] MEDS: pantoprazole 40 mg SDV IVP (14:30)
[2021-10-10 14:40] LABS: Troponin 5 2HR 89.81 ng/L (0-15)
[2021-10-10 14:52] LABS: Troponin 5 2HR Delta 10.81 ABS# (0-10)
[2021-10-10] MEDS: heparin, porcine 1,000 unit/mL INJ 10 mL 1000 UNIT IV (14:53)
--- NOTE | 2021-10-10 14:58 | PC.NURSE ---
Dr. Saunders notified of Tropin Delta 2 hour of 10.81, Calcium missed and patient in Dialysis and Vanc needs to be retimed for after dialysis.
[2021-10-10 15:25] LABS: Amphetamines Screen Urine Positive (Negative); Barbiturates Screen Urine Negative (Negative); Benzodiazepines Screen Urine Negative (Negative); Cocaine Screen Urine Negative (Negative); Opiate Screen Urine Positive (Negative); PCP Screen Urine Negative (Negative); THC Screen Urine Negative (Negative)
--- NOTE | 2021-10-10 17:34 | ECG_ITS ---
[facility] Test Date: 2021-10-10 Pat Name: Fredy Hammonds Department: Room: 256 Gender: Male Dozer Operator: : 1955 Requested By: Anatoly Saunders Order Number: [id number] Arianne MD: Ben Rincon M.D. Measurements Intervals [place] Rate: 103 P: 41 MD: 113 QRS: -51 QRSD: 105 T: 166 QT: 366 QTc: 479 Interpretive Statements SINUS TACHYCARDIA WITH SHORT MD INTERVAL WITH OCCASIONAL SUPRAVENTRICULAR PREMATURE COMPLEXES LEFT AXIS DEVIATION [QRS AXIS < -30] INCOMPLETE RIGHT BUNDLE BRANCH BLOCK [90+ ms QRS DURATION, TERMINAL R IN V1/V2, 40+ ms S IN I/aVL/V4/V5/V6] LEFT VENTRICULAR HYPERTROPHY AND ST-T CHANGE [VOLTAGE CRITERIA PLUS ST/T ABNORMALITY] POSSIBLE ANTERIOR MYOCARDIAL INFARCTION , OF INDETERMINATE AGE [30 ms Q WAVE IN V3/V4, OR R < 0.2 mV IN V4] Compared to ECG 10/10/2021 13:45:43 No significant changes Electronically Signed On 10-11-2021 23:43:56 CDT by Ben Rincon M.D. [id number]
[2021-10-10 18:38] LABS: Troponin 5 6HR 87.82 ng/L (0-15)
[2021-10-10 18:44] LABS: Troponin 5 6HR Delta 8.82 ng/L (0-12)
[2021-10-10] MEDS: calcium acetate 667 mg Capsule PO (20:31)
[2021-10-10] MEDS: vancomycin 1,000 MG in sodium chloride 0.9% 250 ML 250 MG IV (20:35)
[2021-10-11] VITALS (9 sets, daily range): BP systolic 127–159; BP diastolic 72–91; PULSE 84–108; RESP 16–18; TEMP 36.5–37; O2SAT 92–99
[2021-10-11] MEDS: heparin 5,000 unit/mL INJ 1 mL 5000 UNIT SUBCUT ×2 (00:37→11:50)
[2021-10-11] MEDS: FUROsemide 10 mg/mL SDV 10mL 80 MG IVP ×2 (05:19→16:38)
[2021-10-11 05:22] LABS: Basophils % 0.1 %; Eosinophils # 0.2 10^3/uL (0.0-0.8); Eosinophils % 1.5 %; Hematocrit 29.2 % (42.0-52.0); Hemoglobin 9.2 g/dL (11.7-16.6); Lymphocytes # 1.2 10^3/uL (0.8-4.8); Lymphocytes % 11.1 %; Mean Corpuscular HGB Conc 31.5 g/dL (30.0-36.0); Mean Corpuscular Hemoglobin 28.3 pg (28.0-34.0); Mean Corpuscular Volume 89.8 fl (80-94); Mean Platelet Volume 11.4 fL (7.4-10.4); Monocytes % 9.3 %; Neutrophils # 8.35 10^3/uL (1.8-7.7); Neutrophils % 77.4 %; Nucleated Red Blood Cells % 0 %; Platelet Count 218 10^3/cmm (130-400); Red Blood Count 3.25 10^6/uL (4.1-5.3); Red Cell Distribution Width 17.2 % (12.1-15.1); White Blood Count 10.8 10^3/uL (4.0-10.0)
[2021-10-11 05:30] LABS: INR 0.95 (0.8-1.2)
[2021-10-11 05:59] LABS: Procalcitonin 0.66 ng/mL (0-0.5)
[2021-10-11 06:12] LABS: Anion Gap 16.1 (5-19); Blood Urea Nitrogen 37 mg/dL (8-23); Calcium 6.9 mg/dL (8.5-10.5); Carbon Dioxide 24 mmol/L (22-29); Chloride 103 mmol/L (98-107); Glomerular Filtration Rate 17.8 mL/min (90-130); Glucose 149 mg/dL (65-115); Magnesium 1.6 mg/dL (1.7-2.3); Osmolality Calculated 299 mOsm/kg (285-295); Phosphorus 2.4 mg/dL (2.5-4.5); Potassium 4.1 mmol/L (3.5-5.1); Sodium 139 mmol/L (136-145)
[2021-10-11] MEDS: lisinopril 20 mg Tablet PO (07:58)
[2021-10-11] MEDS: aspirin 81 mg EC Tablet PO (07:58)
[2021-10-11] MEDS: atorvastatin 40 mg Tablet 20 MG PO (07:59)
[2021-10-11] MEDS: hyDRALAzine 25 mg Tablet PO ×3 (07:59→21:10)
[2021-10-11] MEDS: carvedilol 25 mg Tablet PO ×2 (08:00→18:17)
[2021-10-11] MEDS: acetaminophen 325 mg Tablet 650 MG PO (08:00)
[2021-10-11] MEDS: calcium acetate 667 mg Capsule PO (08:04)
--- NOTE | 2021-10-11 08:05 | PC.NURSE ---
Patient refused. Wants this medication at night
--- NOTE | 2021-10-11 09:16 | PM.PN ---
Subjective Subjective: Seen via telemedicine with assistance of RN at bedside. Denies chest pain or dyspnea Vitals/I&O/Wt Last Vital Signs Temp 97.7 F 10/11/21 07:54 Pulse 108 H 10/11/21 07:54 Resp 17 10/11/21 07:54 BP 139/91 10/11/21 07:54 Pulse Ox 99 10/11/21 07:54 10/10/21 10/11/21 10/11/21 22:59 06:59 14:59 Intake Total 670 / 1030 300 / 1330 Output Total 3450 / 3450 400 / 400 Balance -2780 / -2420 300 / -2120 -400 / -400 Weight last 48 hrs Weight 83.3 kg Weight 80.286 kg Physical Exam Const: COMMON NORMALS: no acute distress Data : 10/11/21 05:05 10/11/21 05:05 Other Labs: urine + opiates and amphetamines ETOH 15 phos 2.6 Micro: Microbiology 10/10/21 08:48 Blood Culture - Preliminary Blood NEGATIVE TO DATE 10/10/21 08:50 Blood Culture - Preliminary Blood NEGATIVE TO DATE A&P Assessment and plan (1) Anemia: Status: Acute Plan 1. ESRD: HD yesterday, scheduled again tomorrow 2. Chest pain: possible cardiac cath tomorrow, HD after 3. Hypertension: Bp improved after HD. can increase dose of lisinopril if needed 4. Leukocytosis, improved, blood cultures thus far no growth. 5. Low phosphorus: discontinue calcium acetate 6. Anemia: epogen and dialysis Attestations Medical Necessity Statement*: per primary service Time Spent in Patient Care: 16 - 35 minutes Coding Level of Care Code Acute Nursing Program Chair for Ramana Pillai Diagnoses Anemia D64.9
[2021-10-11] MEDS: pantoprazole 40 mg SDV IVP (11:51)
--- NOTE | 2021-10-11 11:58 | PM.PN ---
Subjective Subjective: Patient was seen this morning, his sister is at bedside -Patient denies any chest pain overnight, he feels a lot better less edematous, he tells me his legs feel a lot better -No episodes of chest pain overnight -Patient denies any methamphetamine use, although his urine toxicology was positive, he does not know how a got there I had discussed patient's current status, with his cousin at bedside, daughter over the phone, plans on proceeding with coronary angiogram tomorrow, discussed risks and benefits, they voiced understanding, all questions answered, agreed to proceed Earlier this morning, dehydrogenation operator head had discussed with patient about coronary angiogram, risk of contrast nephropathy and worsening his renal failure, There was some concerns as there was confusion on if his dialysis is permanent, patient was under the impression that his dialysis was only temporary The following discussion was made with patient, patient's son at bedside, patient's daughter over the phone -I discussed patient's chronic kidney disease, I discussed that at baseline patient does not have normal kidneys, he has chronic kidney disease 4-5, his creatinine varies anywhere between 3-5 -When he was admitted during his last hospitalization, his creatinine on admission was 8.4 -The thought was that his chronic kidney disease has progressed to end-stage -I had a thorough discussion with patient during his last hospitalization, and again this morning that he has end-stage renal disease and he will be dependent on dialysis for the rest of his life -He had the impression that this dialysis catheter placed would be temporary -I did advise that certainly it is temporary as a bridge to put in a tunneled dialysis catheter or something more permanent -Certainly there was the hopes that with diuresis and dobutamine drip during his last hospitalization that his kidney function would improve he did put out a significant amount of urine during his last hospitalization with our interventions however his creatinine went up to 9.2, and after discussing the risks and benefits, of dialysis catheter placement with dialysis, and the nature of dialysis being permanent in his case he agreed to proceed -At this point I was honest with patient he is dialysis is likely going to be permanent, he likely has end-stage renal disease that has progressed to end-stage, he is going to be dependent on dialysis for the rest of his life -Patient voiced understanding, family voiced understanding, all questions answered -Now I was clear with patient that the purpose of doing the coronary angiogram is that his heart function has gone down to 20% the purpose of doing a coronary angiogram is that he has a history of stenting, possibly a reason of why his heart function has come up to 20% might be due to worsening coronary artery disease which stenting might improve and in turn if the heart function improves there might be a possibility that his kidney function might improve, but I was again explicit that I feel that hemodialysis will be permanent in his case -Then I was clear with patient that when we do a coronary angiogram there is 3 big risks risk of heart attack stroke and contrast-induced nephropathy -In his case giving him dye, 2 and already end-stage kidney, will have significant implications on any remaining kidney function and it might severely reduce any amount of kidney function that might be remaining if any -So if there is any hope that he might have any kidney function remaining the dye that was given to him will likely significant reduce that hope -However others interventions that we can do to limit that such as doing dialysis right after the coronary angiogram -I have an extensive meeting with patient and his family for over 45 minutes to going over these details -Again it was explicitly clear that dialysis is going to be permanent is likely permanent this case a coronary angiogram is going to injury his disease kidneys, but the purpose of the coronary angiogram is to find obstructive CAD -Patient voiced understanding, all questions answered, opportunity answer questions, he agrees to proceed with coronary angiogram, understands dialysis is going to permanent Vitals/I&O/Wt Last Vital Signs Temp 97.7 F 10/11/21 07:54 Pulse 108 H 10/11/21 07:54 Resp 17 10/11/21 07:54 BP 139/91 10/11/21 07:54 Pulse Ox 99 10/11/21 07:54 10/10/21 10/11/21 10/11/21 22:59 06:59 14:59 Intake Total 670 / 1030 300 / 1330 120 / 120 Output Total 3450 / 3450 400 / 400 Balance -2780 / -2420 300 / -2120 -280 / -280 Weight last 48 hrs Weight 83.3 kg Weight 80.286 kg Physical Exam Const: COMMON NORMALS: no acute distress and patient oriented x3 Resp: COMMON NORMALS: normal respiratory effort, No retractions, No use of accessory muscles and clear to auscultation bilaterally AUSCULTATION: clear to auscultation bilaterally Cardio: COMMON NORMALS: regular rate, regular rhythm, S1 normal heart sound present and S2 normal heart sound present RATE: regular rate RHYTHM: regular rhythm HEART SOUNDS: S1 normal heart sound present and S2 normal heart sound present GI: COMMON NORMALS: Normal to inspection, nondistended, normoactive bowel sounds present, Soft to palpation and non-tender PALPATION: Yes Soft to palpation Extremity: COMMON NORMALS: no pedal edema Neuro: COMMON NORMALS: patient oriented x3 Psych: COMMON NORMALS: mental status grossly normal Data : 10/11/21 05:05 10/11/21 05:05 Micro: Microbiology 10/10/21 08:48 Blood Culture - Preliminary Blood NEGATIVE TO DATE 10/10/21 08:50 Blood Culture - Preliminary Blood NEGATIVE TO DATE A&P Assessment and plan (1) Chest pain: Status: Acute (2) Leukocytosis: Status: Acute (3) End stage renal disease: Status: Acute (4) Systolic CHF: Status: Acute (5) Hyperlipidemia: Status: Acute (6) Mild aortic regurgitation: Status: Acute (7) CKD (chronic kidney disease) stage 4, GFR 15-29 ml/min: Status: Acute (8) Hypertension, essential: Status: Acute (9) Cellulitis: Status: Acute (10) Obstructive sleep apnea: Status: Acute (11) Moderate pulmonary arterial systolic hypertension: Status: Acute (12) Anemia in chronic kidney disease (CKD): Status: Acute (13) CHF exacerbation: Status: Acute (14) NSTEMI (non-ST elevated myocardial infarction): Status: Acute Plan Fluid overload, pulmonary edema, bilateral extremity edema -Diuresed over 4 L -Likely secondary to systolic CHF exacerbation -End-stage renal disease, receiving dialysis -Continue Lasix 80 twice daily IV -Full code -Heparin for DVT prophylaxis End-stage renal disease, dialysis dependent, right tunneled dialysis catheter in place Chest pain -NSTEMI -No acute ST-T wave changes -Had a cardiac stress test June 19, 2020 Large area of old myocardial infarction versus scarring noted in the basal to ?distal inferior and inferolateral wall.? No ischemia detected on the study.? ?EKG segment will be documented separately -His last echocardiogram showed an EF of 20%, with global left ventricular hypokinesia -The thought was during his last hospitalization that the EF decreased could be related to noncompliance, noncompliance with hypertensive medications, worsening renal failure, plans on medical optimization -As above, patient is agreeable to proceed with coronary angiogram Plan -Continue aspirin, statin, Coreg -Telemetry monitoring -Monitor chest pain -Consult cardiology, plans on cardiac catheterization tomorrow -Cardiac echocardiogram -?This is a limited echocardiogram performed to assess LV systolic ?function. ?LV systolic function is severely reduced with EF of 20-25%.? ?Severe global hypokinesis is seen.? ?Compared to prior echocardiogram from 10/02/2021, no significant ?changes are seen Leukocytosis -No evidence of UTI -No significant evidence of respiratory tract infection -On examination of bilateral knees, no significant evidence of infection -On his last hospital admission, on discharge, he developed right knee swelling, I thought it was gouty attack, it significantly resolved with Solu-Medrol, I did discharge him on prednisone, we were unsure if he took prednisone at home -The right dialysis catheter was placed, does not look infected Plan -I think that his leukocytosis is likely secondary to prednisone and Solu-Medrol -WBC 10.8 -Repeat blood cultures negative so far -Pro-Vikas 0.66 CRP 3, ESR 49 -Continue vancomycin, stop once 48 hours blood cultures negative Moderate pulmonary hypertension End-stage renal disease, receiving dialysis here in the hospital, nephrology on consult Hyperlipidemia Gouty attack, right knee does not look swollen, morphine for pain, hold off on steroids until infection can be ruled out Attestations Medical Necessity Statement*: Patient requires hospitalization and due to end-stage renal disease undergoing dialysis, chest pain, undergoing coronary angiography Coding Level of Care Code Acute Licensed Practical Nurse for [facility] Fwd Diagnoses Chest pain R07.9 Leukocytosis D72.829 End stage renal disease N18.6 Systolic CHF I50.20 Hyperlipidemia E78.5 Mild aortic regurgitation I35.1 CKD (chronic kidney disease) stage 4, GFR 15-29 ml/min N18.4 Hypertension, essential I10 Cellulitis L03.90 Obstructive sleep apnea G47.33 Moderate pulmonary arterial systolic hypertension I27.21 Anemia in chronic kidney disease (CKD) N18.9; D63.1 CHF exacerbation I50.9 NSTEMI (non-ST elevated myocardial infarction) I21.4
--- NOTE | 2021-10-11 14:00 | P.CONIM_ITS ---
Providers/Reason For Consult Consulting Physician/Specialty*: Ben Rincon MD/ Cardiology Reason for Consult*: New onset congestive heart failure/chest pain Requesting Physician: Dr Saunders Attending Physician: Anatoly Saunders MD Primary Care Provider: Kian Colon MD History of Present Illness History of Present Illness Fredy Hammonds is a 66 year old male with past medical history of CAD, recently diagnosed decreased cardiac function, moderate pulmonary hypertension, COPD, mild aortic stenosis now on dialysis has presented to the hospital with chest pain symptoms. This is that he had been having chest discomfort for 1 to 2 days associated with shortness of breath. No fever. NT proBNP significantly elevated. Troponins are elevated however no significant uptrend. EKG does not show acute ST changes. Review of Systems Const: Denies: fever(s), chills, fatigue or malaise Eyes: Denies: change in vision ENMT: Denies: nasal congestion Card: Reports: chest pain Resp: Denies: productive cough, non-productive cough or wheezing GI: Denies: abdominal pain, nausea, vomiting or diarrhea : Denies: flank pain, difficulty urinating, dysuria or urinary frequency Musc: Denies: neck pain or back pain Skin/Breast: Denies: rash Neuro: Denies: headache(s) or dizziness Medications/Allergies Home Medications Medication Instructions Recorded Confirmed Last Taken Type Cane #1 ea 10/03/20 10/10/21 Unknown Rx sildenafil 100 mg tablet 50 mg PO DAILY PRN #30 tab 04/01/21 10/10/21 Unknown Rx fluticasone propionate 50 1 spray INTRANASAL BID 30 Days #16 08/05/21 10/10/21 Unknown Rx mcg/actuation nasal g spray,suspension (Flonase Allergy Relief) ipratropium 20 mcg-albuterol 100 1 puff INHALATION Q4H PRN 30 Days 08/05/21 10/10/21 Unknown Rx mcg/actuation mist for inhalation #4 g (Combivent Respimat) umeclidinium 62.5 mcg-vilanterol 1 inh INHALATION DAILY 60 Days #60 08/07/21 10/10/21 Unknown Rx 25 mcg/actuation powdr for ea inhalation (Anoro Ellipta) triamcinolone acetonide 0.5 % 1 applic TOPICAL DAILY #15 g 09/09/21 10/10/21 Unknown Rx topical cream albuterol sulfate 2.5 mg INHALATION QID PRN 10/02/21 10/10/21 Unknown History aspirin 81 mg tablet,delayed 81 mg PO DAILY 30 Days #30 tab 10/07/21 10/10/21 Unknown Rx release atorvastatin 20 mg tablet 20 mg PO DAILY 30 Days #30 tab 10/07/21 10/10/21 Unknown Rx calcium acetate 667 mg tablet 1,334 mg PO TIDWM 30 Days #90 tab 10/07/21 10/10/21 Unknown Rx (Calphron) carvedilol 25 mg tablet 25 mg PO BID 30 Days #0 tab 10/07/21 10/10/21 Unknown Rx furosemide 40 mg tablet 80 mg PO BID@,16 30 Days #80 tab 10/07/21 10/10/21 Unknown Rx hydralazine 25 mg tablet 25 mg PO TID 30 Days #90 tab 10/07/21 10/10/21 Unknown Rx hydrocodone 5 mg-acetaminophen 325 1 tab PO BID PRN 5 Days #10 tab 10/07/21 10/10/21 Unknown Rx mg tablet lisinopril 20 mg tablet 20 mg PO DAILY 30 Days #30 tab 10/07/21 10/10/21 Unknown Rx nitroglycerin 0.4 mg sublingual 0.4 mg SUBLINGUAL Q5M PRN 30 Days 10/07/21 10/10/21 Unknown Rx tablet (Nitrostat) #30 tab prednisone 20 mg tablet 20 mg PO BID 7 Days #14 tab 10/07/21 10/10/21 Unknown Rx albuterol sulfate 90 mcg/actuation 2 puff INHALATION Q6H PRN 10/10/21 10/10/21 Unknown History aerosol inhaler (ProAir HFA) trazodone 50 mg tablet 25 mg PO BEDTIME 10/10/21 10/10/21 Unknown History Allergies Allergy/AdvReac Type Severity Reaction Status Date / Time No Known Allergies Allergy Verified 10/10/21 07:52 Current Medications Generic Name Dose Route Start Last Admin Trade Name Freq PRN Reason Stop Dose Admin Acetaminophen 650 mg 10/10/21 11:18 10/11/21 08:00 Acetaminophen 325 Mg Tablet PO 650 mg Q6H PRN Administration Mild/Mod Pain Or Temp >/= 101 Aspirin 81 mg 10/10/21 11:18 10/11/21 07:58 Aspirin 81 Mg Ec Tablet PO 81 mg DAILY VENUS Administration Atorvastatin Calcium 20 mg 10/11/21 09:00 10/11/21 07:59 Atorvastatin 40 Mg Tablet PO 20 mg DAILY VENUS Administration Carvedilol 25 mg 10/11/21 09:00 10/11/21 08:00 Carvedilol 25 Mg Tablet PO 25 mg BID VENUS Administration Furosemide 80 mg 10/10/21 11:18 10/11/21 05:19 Furosemide 10 Mg/Ml Sdv 10ml IVP 80 mg Q12H VENUS Administration Heparin Sodium (Porcine) 5,000 unit 10/10/21 11:18 10/11/21 11:50 Heparin 5,000 Unit/Ml Inj 1 Ml SUBCUT 5,000 unit Q12H VENUS Administration Hydralazine HCl 25 mg 10/10/21 21:00 10/11/21 07:59 Hydralazine 25 Mg Tablet PO 25 mg TID VEUNS Administration Vancomycin HCl 1,000 mg/ 250 mls @ 250 mls/hr 10/10/21 20:00 10/10/21 21:35 Sodium Chloride IV Infused DIALYSIS VENUS Infusion Lisinopril 20 mg 10/10/21 11:18 10/11/21 07:58 Lisinopril 20 Mg Tablet PO 20 mg DAILY VENUS Administration Pantoprazole Sodium 40 mg 10/10/21 11:18 10/11/21 11:51 Pantoprazole 40 Mg Sdv IVP 40 mg Q24H VENUS Administration Trazodone HCl 25 mg 10/10/21 11:18 10/11/21 08:05 Trazodone 50 Mg Tablet PO Not Given DAILY VENUS PFSH Acute PFSH: Medical History Allergic reaction Anemia in chronic kidney disease (CKD) BPH NOS w ur obs/LUTS Cardiomyopathy CAD with stent in LAD Cellulitis CHF exacerbation Combined D/S CHF CKD (chronic kidney disease) stage 4, GFR 15-29 ml/min COPD exacerbation Elevated PSA End stage renal disease Erectile dysfunction Gout attack History of pulmonary embolism Hyperkalemia Hyperlipidemia Hypersomnolence Hypertension, essential Hypoalbuminemia Insomnia Ischemic cardiomyopathy Left shoulder pain Mild aortic regurgitation Mild aortic stenosis 12/07/2018: Mean gradient 4.6 mmHg, aortic valve area 2.2 cm? Moderate pulmonary arterial systolic hypertension Respiratory distress Smoking Quit 2020 Stasis dermatitis of lower extremity due to chronic peripheral vascular hypertension Tear of left rotator cuff Surgical History H/O abdominal surgery hernia History of ankle surgery History of back surgery Postoperative state Family History Family/Other Cancer Mother Dementia Diabetes Sister Diabetes CAD (coronary artery disease) Father , AT AGE 78 Brain aneurysm Denies family history of Clotting disorder Hyperlipidemia Psychiatric illness Chronic kidney disease (CKD) Suicide Anesthesia complication Bleeding disorder Family history of premature coronary artery disease Lung disease Hypertension Stroke Social History Smoking and tobacco status: former smoker Quit status (tobacco): has quit using tobacco Year quit tobacco: 2020 Former quit date comment: 0.5 ppd X 15 years Alcohol intake: current Alcohol intake frequency: few times a month Marital status: Current occupational status: disabled History of recent travel: No Vitals/I&O/Wt Last Vital Signs Temp 97.7 F 10/11/21 12:00 Pulse 100 10/11/21 12:00 Resp 17 10/11/21 12:00 BP 144/90 10/11/21 12:00 Pulse Ox 96 10/11/21 12:00 10/10/21 10/11/21 10/11/21 22:59 06:59 14:59 Intake Total 670 / 1030 300 / 1330 120 / 120 Output Total 3450 / 3450 400 / 400 Balance -2780 / -2420 300 / -2120 -280 / -280 Weight last 48 hrs Weight 183 lb 10.321 oz Weight 177 lb Physical Exam Narrative: GENERAL: Patient is alert, awake and oriented x3. [] NECK: No jugular vein distension. [] HEENT: No cyanosis. No icterus. No pallor. [] HEART: Regular S1 and S2. No murmur, rub or gallop. [] LUNGS: Clear to auscultate bilaterally. [] ABDOMEN: Soft, nontender and nondistended. Positive bowel sounds. No guarding, rebound or tenderness. [] CENTRAL NERVOUS SYSTEM: Grossly nonfocal. [] EXTREMITIES: Lower extremities with 1+ edema bilaterally. Pulses palpable in the lower extremities, both dorsalis pedis and posterior tibial. [] Data : 10/11/21 05:05 10/11/21 05:05 Micro: Microbiology 10/10/21 08:48 Blood Culture - Preliminary Blood NEGATIVE TO DATE 10/10/21 08:50 Blood Culture - Preliminary Blood NEGATIVE TO DATE A&P Assessment and plan (1) Chest pain: Status: Acute (2) CHF exacerbation: Status: Acute (3) Hyperlipidemia: Status: Acute (4) Mild aortic regurgitation: Status: Acute (5) Hypertension, essential: Status: Acute (6) Cardiomyopathy: Status: Acute Qualifiers: Cardiomyopathy type: dilated Qualified Code(s): I42.0 - Dilated cardiomyopathy Plan Patient had a recent drop in LV systolic function. He has also been having chest pain symptoms. He is now on dialysis. Will need ischemic work-up as has prior stents in RCA and LAD. I had a detailed discussion with the patient that the residual renal function likely will worsen secondary to contrast use. Opt ion of medical therapy discussed. He understands the risks of coronary angiogram and wants to proceed with it. Continue dialysis per nephrology recommendations. N.p.o. past midnight. Thank you for involving us with care of this patient. We will continue to follow. Please call with questions. Consult Attestations Medical Necessity Statement: Care expected to cross 2 midnights Coding Level of Care Code Acute Advertising Traffic Manager for Ramana Pillai Diagnoses Chest pain R07.9 CHF exacerbation I50.9 Hyperlipidemia E78.5 Mild aortic regurgitation I35.1 Hypertension, essential I10 Cardiomyopathy I42.0 Cardiomyopathy type: dilated
[2021-10-11] MEDS: vancomycin 1,000 MG in sodium chloride 0.9% 250 ML 250 MG IV (21:11)
[2021-10-12] VITALS (82 sets, daily range): BP systolic 96–167; BP diastolic 74–112; PULSE 85–110; RESP 6–40; TEMP 36.1–36.8; O2SAT 95–100
[2021-10-12] MEDS: heparin 5,000 unit/mL INJ 1 mL 5000 UNIT SUBCUT ×2 (00:26→10:53)
[2021-10-12] MEDS: FUROsemide 10 mg/mL SDV 10mL 80 MG IVP ×2 (05:15→18:12)
[2021-10-12 05:53] LABS: INR 0.94 (0.8-1.2)
[2021-10-12 06:15] LABS: Procalcitonin 0.62 ng/mL (0-0.5)
--- NOTE | 2021-10-12 06:17 | XACV_ITS ---
Exam Room: [facility] Ht: 175 cm Wt: 83 kg BSA: 2.03 m2 Gender: Male : 1955 Any Known Allergies: Other Exam Priority: Routine Procedure(s): Procedure Description: Diagnostic procedure Procedure Description: Left Heart Catheterization Procedure Description: Coronary Angiography Diagnostic Cath Status: Urgent Diagnostic Findings * INDICATION: New onset systolic congestive heart failure/ Chest pain. * No significant disease noted in the Left Main, Left Anterior Descending, Right, or Circumflex coronary arteries. * Patent RCA and LAD stents. * Coronary angiography shows right dominance. Conclusions 1. No significant disease noted in the Left Main, Left Anterior Descending, Right, or Circumflex coronary arteries. 2. Patent prior RCA and LAD stents. Recommendations * Aggressive medical therapy. * Guideline directed CHF therapy. * Outpatient cardiology follow up in 4 weeks. Interventional RX Recommendation: medical therapy and/or counseling Diagnostic RX Recommendation: medical therapy and/or counseling Pressures Phase:Rest AO : 141 / 87 ( 110 ) @ 10:05:00 AM 143 / 80 ( 108 ) @ 10:05:00 AM LV : 138 / 0 / 27 @ 10:05:00 AM 139 / 2 / 28 @ 10:05:00 AM Valves Phase:DefaultPhase AV : 0.0 @ 9:29:07 AM 0.0 @ 9:29:07 AM AV Mean Gradient: 0.0 @ 9:29:07 AM Clinical Evaluation EBL: 5mL-10mL Procedural Details Procedure Consent Obtained. Admit Source: In Patient. Pre-Procedure Time Out. Identified patient by full name and date of as verbalized by the patient/guarantor. Does the consent match the physician's order: Yes. Accurate & Complete Informed Consent: Yes. Inpatient/Outpatient History & Physical on Chart: Yes. If H&P is completed, is and addenduem needed: N/A; If yes, is the addendum complete: N/A. Visualize and Verify Site with Patient/Guarantor: N/A. Relevant Radiology Images available: N/A. Pre-op teaching completed and patient verbalized understanding. The risks, benefits, and alternatives of sedation and/or procedure were discussed by physician. The patient agrees to continue. Procedure started. [facility] Clinical Fraility Score: 3: Managing Well. Trust And Estates Attorney Indications: Cardiomyopathy. Chest Pain Symptom Assessment: Asymptomatic. Correct patient, site and procedure confirmed by cath team. Current diagnosis: New Onset Heart Failure. PERRLA. Strong, equal hand workforce consultant bilaterally. Lungs clear x 5 lobes. IV Site on Arrival: 20 gauge in the left anticubital. IV Fluids: 0.9% NaCl at KVO. 0 mL infused prior to poultry farm laborer. Pre Procedural Pulses: bilateral dorsalis pedis was 2+. Oxygen started at 2liters/min via nasal canula. right groin was prepped with chloroprep then draped in the usual sterile fashion. Physician notified. Baseline sample Acquired. HR: 94 BPM. Physician arrived. Physician scrubbed in. Lidocaine 1% infiltrated to the right groin. Arterial access obtained with micropuncture set. A 5 frisian JL4 catheter in over wire. Multiple views taken of left coronary artery. Catheter out. A 5 frisian JR4 catheter in over wire. Multiple views taken of right coronary artery. EDP Sample taken: LV 138/0,27; HR: 96 BPM; SpO2: 100%. Pullback taken: LV 139/2,28; AO 141/87(110); Mean: 0mmHg, Peak to Peak: 0mmHg, SEP: 22sec/min; HR: 95 BPM; SpO2: 100%. Catheter out. Post-op diagnosis: Non obstructive CAD, non obstructive Cardiomyopathy. A Manual Compression was successful obtaining hemostatsis at the Right Femoral artery insertion site. Sheath(s) removed and manual pressure held until hemostasis was achieved. Sterile 4x4 and Op-site applied to the puncture site. No oozing or hematoma noted. Post sheath removal instructions were given and the patient verbalized understanding. Post Procedure: Pulses reassessed and unchanged. PERRLA. Strong, equal hand workforce consultant bilaterally. No VTE prophylaxis required. Medication's Wasted: Lidocaine 1% = 1 mL. Medication's Wasted: Heparin = 1000 u. Medication's Wasted: Other = Fentanyl 50mcg. Total IV fluids: 32 mL. Complications: none. Estimated blood loss: 5mL-10mL. Responsiveness - Normal response to verbal stimuli; alert and oriented, PERRLA. Airway - Unaffected, no intervention required; spontaneous ventilation. Circulation: W/N/L, pulses unchanged. Nausea/Vomiting: No. Procedure completed. Patient transferred by bed to ICU. Access Site Site: Right Femoral artery Sheath Size: 6 Fr Hemostasis Method: Manual Compression Hemostasis Success: Successful Procedure Medications Start: 8:53 AM Stop: 8:53 AM Medication: Versed Amount: 1 mg Route: I.V. Start: 8:53 AM Stop: 8:53 AM Medication: Fentanyl Amount: 50 mcg Route: I.V. Start: 8:56 AM Stop: 8:56 AM Medication: Versed Amount: 1 mg Route: I.V. I, the attending physician, have reviewed and verified all procedure medications. Yes, all medications given per verbal order History/Risk Factors Hypertension: Yes Dyslipidemia: Yes Peripheral Arterial Disease (PAD): No Myocardial Infarction (CO): No Obesity: No Renal Disease: Yes Prior Interventions PCI: Yes CABG: No Valve Surgery: No Date of PCI: 09/27/2018 Report Signatures Finalized by Ben Rincon MD on 10/25/2021 02:40 PM
[2021-10-12] MEDS: sodium chloride 0.9% 1,000 ML 50 ML IV (06:25)
[2021-10-12 06:28] LABS: Magnesium 1.5 mg/dL (1.7-2.3); Phosphorus 2.1 mg/dL (2.5-4.5)
[2021-10-12 06:43] LABS: NT Pro B Type Natriuretic Pept 42870 pg/mL (0-125)
--- NOTE | 2021-10-12 08:30 | P.PN_ITS ---
Subjective Subjective: seen via telemedicine during hemodialysis with assistance of RN had cardiac cath this AM Vitals/I&O/Wt Last Vital Signs Temp 97.8 F 10/12/21 04:00 Pulse 96 10/12/21 04:00 Resp 14 10/12/21 04:00 BP 115/77 10/12/21 04:00 Pulse Ox 99 10/12/21 07:00 10/11/21 10/12/21 10/12/21 22:59 06:59 14:59 Intake Total 610 / 1090 Output Total 500 / 900 400 / 1300 Balance 110 / 190 -400 / -210 Weight last 48 hrs Weight 83.3 kg Data : 10/11/21 05:05 10/11/21 05:05 Micro: Microbiology 10/10/21 08:48 Blood Culture - Preliminary Blood NEGATIVE TO DATE 10/10/21 08:50 Blood Culture - Preliminary Blood NEGATIVE TO DATE A&P Assessment and plan (1) End stage renal disease: Status: Acute Plan 1. ESRD: HD today. Continue MWF 2. Hypertension: Bp well-controlled 3. Anemia: epogen and dialysis Attestations Medical Necessity Statement*: per primary service Time Spent in Patient Care: 16 - 35 minutes Coding Level of Care Code Acute Mobile Electronics Installer for Ramana Pillai Diagnoses End stage renal disease N18.6
--- NOTE | 2021-10-12 08:36 | W.PM.OPSUD ---
Surgery/Procedure H&P Update DATE OF PROCEDURE: October 12, 2021 DATE H&P PERFORMED: 10/11/21 H&P UPDATE INFORMATION: I have reviewed H&P completed within last 30 days, I have examined patient prior to procedure and No changes to prior documentation PREOP DIAGNOSIS: New onset systolic congestive heart failure/ Chest pain PRIMARY INDICATION FOR PROCEDURE: New onset systolic congestive heart failure/ Chest pain PLANNED PROCEDURE: Operation Date: 10/12/21 08:30 Proposed Procedures p Cardiac Catheterization(Left) - Ben Rincon M.D Possible percutaneous coronary intervention PATIENT REASSESSED PRIOR TO SEDATION, WITH NO CHANGE NOTED: Yes PHYSICAL EXAM: alert, oriented x 3, clear to auscultation bilaterally and regular rate & rhythm AIRWAY EVAL/ANESTHESIA PLAN: ASA IV, Risks, benefits & alternatives of sedation and/or procedure discussed and Patient agrees to continue as planned ADDITIONAL INFORMATION: Possible percutaneous coronary intervention
--- NOTE | 2021-10-12 09:56 | PC.NURSE ---
Addendum entered by Eamon Rdz RN 10/12/21 10:05: REceived patient from culture media laboratory assistant staff at approximately 0945. Patient is alert and oriented to person, place time, situation. HR:96, SPO2:98%, BP:141/96, RR: 18, Temp: 97 axillary. Patient voided upon arrival in ICU. Cath site to the right groin. SIte is unremarkable. No brusing, no bleeding, no hematoma felt, dressed with a transparent dressing and gauze. Gauze appears dry. Original Note: REceived patient from Cath la staff at approximtaely 0945. Patient is alert and oriented to person, place time, situation. HR:96, SPO2:98%, BP:141/96, RR: 18, Temp: 97 axillary. Patient voided upon arrival in ICU. Cath site to the right ground. SIte is unremarkable. No brusing, no bleeding, no hematoma felt, dressed with a transparent dressing and gauze. Gauze appears dry.
--- NOTE | 2021-10-12 10:21 | PM.PN ---
Subjective Subjective: Patient is doing well. Underwent coronary angiogram that showed patent prior stents in the RCA and LAD. Vitals/I&O/Wt Last Vital Signs Temp 97.8 F 10/12/21 04:00 Pulse 96 10/12/21 04:00 Resp 14 10/12/21 04:00 BP 115/77 10/12/21 04:00 Pulse Ox 99 10/12/21 07:00 10/11/21 10/12/21 10/12/21 22:59 06:59 14:59 Intake Total 610 / 1090 0 / 0 Output Total 500 / 900 400 / 1300 0 / 0 Balance 110 / 190 -400 / -210 0 / 0 Weight last 48 hrs Weight 183 lb 10.321 oz Physical Exam Narrative: GENERAL: Patient is alert, awake and oriented x3. [] NECK: No jugular vein distension. [] HEENT: No cyanosis. No icterus. No pallor. [] HEART: Regular S1 and S2. No murmur, rub or gallop. [] LUNGS: Clear to auscultate bilaterally. [] ABDOMEN: Soft, nontender and nondistended. Positive bowel sounds. No guarding, rebound or tenderness. [] CENTRAL NERVOUS SYSTEM: Grossly nonfocal. [] EXTREMITIES: Lower extremities with 1+ edema bilaterally. Pulses palpable in the lower extremities, both dorsalis pedis and posterior tibial. [] Data : 10/11/21 05:05 10/13/21 05:20 Micro: Microbiology 10/10/21 08:48 Blood Culture - Preliminary Blood NEGATIVE TO DATE 10/10/21 08:50 Blood Culture - Preliminary Blood NEGATIVE TO DATE A&P Assessment and plan (1) Chest pain: Status: Acute (2) CHF exacerbation: Status: Acute (3) Hyperlipidemia: Status: Acute (4) Mild aortic regurgitation: Status: Acute (5) Hypertension, essential: Status: Acute (6) Cardiomyopathy: Status: Acute Qualifiers: Cardiomyopathy type: dilated Qualified Code(s): I42.0 - Dilated cardiomyopathy Plan Patient underwent coronary angiogram today with minimal contrast used that showed patent prior LAD and RCA stent. Drop in LV function not secondary to new CAD. We will recommend LifeVest Continue dialysis per nephrology recommendations. Continue Coreg 25 mg twice daily. Patient on lisinopril. Thank you for involving us with care of this patient. We will continue to follow. Please call with questions. Attestations Medical Necessity Statement*: Care expected to cross 2 midnights. 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
[2021-10-12] MEDS: aspirin 81 mg EC Tablet PO (10:53)
[2021-10-12] MEDS: lisinopril 20 mg Tablet PO (10:54)
[2021-10-12] MEDS: carvedilol 25 mg Tablet PO ×2 (10:54→18:17)
[2021-10-12] MEDS: atorvastatin 40 mg Tablet 20 MG PO (10:54)
[2021-10-12] MEDS: hyDRALAzine 25 mg Tablet PO ×2 (10:54→22:06)
[2021-10-12] MEDS: pantoprazole 40 mg SDV IVP (12:09)
--- NOTE | 2021-10-12 13:16 | PM.PN ---
Subjective Subjective: This morning patient was seen in the ICU Femoral sheath has been removed He is not experiencing any chest pain Patient is agreeable for LifeVest Vitals/I&O/Wt Last Vital Signs Temp 96.9 F L 10/12/21 12:15 Pulse 93 10/12/21 13:00 Resp 22 H 10/12/21 13:00 BP 134/90 10/12/21 13:00 Pulse Ox 100 10/12/21 13:00 10/11/21 10/12/21 10/12/21 22:59 06:59 14:59 Intake Total 610 / 1090 400 / 400 Output Total 500 / 900 400 / 1300 300 / 300 Balance 110 / 190 -400 / -210 100 / 100 Weight last 48 hrs Weight 83.3 kg Physical Exam Narrative: Patient is resting comfortably Asking for food Nonfocal neuro exam Clinically does not look fluid overloaded Looks euvolemic Currently satting well on room air Pleasant and cooperative Nonfocal neuro exam Dialysis catheter in place, Abdomen soft Data : 10/11/21 05:05 10/11/21 05:05 Micro: Microbiology 10/10/21 08:48 Blood Culture - Preliminary Blood NEGATIVE TO DATE 10/10/21 08:50 Blood Culture - Preliminary Blood NEGATIVE TO DATE A&P Assessment and plan (1) Anemia: Status: Acute (2) NSTEMI (non-ST elevated myocardial infarction): Status: Acute (3) CHF exacerbation: Status: Acute (4) Chest pain: Status: Acute (5) Leukocytosis: Status: Acute (6) End stage renal disease: Status: Acute (7) Systolic CHF: Status: Acute Plan Cardiomyopathy Acute systolic congestive heart failure exacerbation Stents were patent No new stent was placed by Dr. Rincon Cardiac cath was done today which was unremarkable Hypomagnesemia: Magnesium repleted Renal dialysis diet Patient was asked about his dialysis, nephrology consulted, he will get dialyzed today and tomorrow He has a dialysis catheter, right tunneled dialysis catheter Will follow up with nephro Patient carry history of primary hypertension and COPD Currently not on oxygen Renal dialysis diet Full code Agreeable for LifeVest DVT prophylaxis on board Discontinue antibiotics, he was given steroids for possible gout attack at the time of admission Afebrile Cultures negative to date Fluid overload with pulmonary edema secondary to renal disease Patient had high filling pressures during coronary angiogram Continue diuretics Attestations Medical Necessity Statement*: Status post angiogram today Continue monitoring ICU Time Spent in Patient Care: 30 Coding Level of Care Code Acute Guest Relation Officer for Chg Fwd Diagnoses Anemia D64.9 NSTEMI (non-ST elevated myocardial infarction) I21.4 CHF exacerbation I50.9 Chest pain R07.9 Leukocytosis D72.829 End stage renal disease N18.6 Systolic CHF I50.20
--- NOTE | 2021-10-12 13:24 | PC.NURSE ---
NUrse transferred patient to [facility] floor. Patient brought to room 274 for dialysis. Report given to Светлана, dialysis nurse, and to june, the primary nurse. All belongings sent with patient. We are still waiting on the life vest order which needs to be faxed to number on the physical chart. Vanc trough needed after dialysis
[2021-10-12 14:15] LABS: Uric Acid 8.4 mg/dL (3.4-7.0)
[2021-10-12 23:36] LABS: HEP C RNA Viral Load Quant 6.98 Log IU/mL (NOT DETECTED); HEP C RNA Viral Load Quant 9580000 IU/mL (NOT DETECTED)
[2021-10-13] VITALS: BP 132/76; PULSE 84; RESP 16; TEMP 36.9; O2SAT 98
[2021-10-13] MEDS: heparin 5,000 unit/mL INJ 1 mL 5000 UNIT SUBCUT ×2 (00:11→11:18)
[2021-10-13] MEDS: trazodone 50 mg Tablet 25 MG PO ×2 (00:22→09:02)
[2021-10-13] MEDS: ALPRAZolam 0.5 mg Tablet 0.25 MG PO (00:22)
[2021-10-13 04:00] VITALS: BP 137/65; PULSE 83; RESP 18; TEMP 36.6; O2SAT 99
[2021-10-13 05:02] VITALS: BP 137/82; PULSE 96; RESP 18; TEMP 36.8; O2SAT 99
[2021-10-13] MEDS: FUROsemide 10 mg/mL SDV 10mL 80 MG IVP (05:25)
[2021-10-13 05:58] LABS: Anion Gap 13.9 (5-19); Blood Urea Nitrogen 34 mg/dL (8-23); Calcium 6.8 mg/dL (8.5-10.5); Carbon Dioxide 26 mmol/L (22-29); Chloride 104 mmol/L (98-107); Glomerular Filtration Rate 16.4 mL/min (90-130); Glucose 131 mg/dL (65-115); Magnesium 1.7 mg/dL (1.7-2.3); Osmolality Calculated 299 mOsm/kg (285-295); Potassium 3.9 mmol/L (3.5-5.1); Sodium 140 mmol/L (136-145)
[2021-10-13 08:00] VITALS: BP 143/94; PULSE 90; TEMP 36.6; O2SAT 100
[2021-10-13] MEDS: atorvastatin 40 mg Tablet 20 MG PO (09:03)
[2021-10-13] MEDS: hyDRALAzine 25 mg Tablet PO (09:03)
[2021-10-13] MEDS: aspirin 81 mg EC Tablet PO (09:05)
[2021-10-13] MEDS: lisinopril 20 mg Tablet PO (09:05)
[2021-10-13] MEDS: carvedilol 25 mg Tablet PO (09:05)
--- NOTE | 2021-10-13 09:10 | P.PN_ITS ---
Subjective Subjective: Patient is stable. Denies chest pain. Vitals/I&O/Wt Last Vital Signs Temp 97.8 F 10/13/21 08:00 Pulse 90 10/13/21 08:00 Resp 18 10/13/21 05:02 BP 143/94 10/13/21 08:00 Pulse Ox 100 10/13/21 08:00 10/12/21 10/13/21 10/13/21 22:59 06:59 14:59 Intake Total 102 / 631.167 120 / 751.167 240 / 240 Output Total 2500 / 2800 550 / 3350 Balance -2398 / -2168.833 -430 / -2598.833 240 / 240 Weight last 48 hrs Weight 172 lb 2.896 oz Physical Exam Narrative: GENERAL: Patient is alert, awake and oriented x3. [] NECK: No jugular vein distension. [] HEENT: No cyanosis. No icterus. No pallor. [] HEART: Regular S1 and S2. No murmur, rub or gallop. [] LUNGS: Clear to auscultate bilaterally. [] ABDOMEN: Soft, nontender and nondistended. Positive bowel sounds. No guarding, rebound or tenderness. [] CENTRAL NERVOUS SYSTEM: Grossly nonfocal. [] EXTREMITIES: Lower extremities with 1+ edema bilaterally. Pulses palpable in the lower extremities, both dorsalis pedis and posterior tibial. [] Data : 10/11/21 05:05 10/13/21 05:20 A&P Assessment and plan (1) Chest pain: (2) CHF exacerbation: (3) Hyperlipidemia: (4) Mild aortic regurgitation: (5) Hypertension, essential: (6) Cardiomyopathy: Qualifiers: Cardiomyopathy type: dilated Qualified Code(s): I42.0 - Dilated cardiomyopathy Plan Coronary angiogram did not reveal significant stenosis and patent prior LAD and RCA stents were seen. LifeVest recommended Continue dialysis per nephrology recommendations. Continue Coreg and lisinopril Thank you for involving us with care of this patient. Patient is discharged stable to be discharged from cardiology standpoint. Please call with questions. 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
--- NOTE | 2021-10-13 09:29 | PC.NURSE ---
Information for life vest faxed to tal at [phone]
[2021-10-13 09:36] VITALS: PULSE 98; RESP 16; O2SAT 98
[2021-10-13] MEDS: pantoprazole 40 mg SDV IVP (11:21)
--- NOTE | 2021-10-13 11:32 | PM.DCS ---
Discharge Providers Date of Admission: 10/10/21 07:35 Date of Discharge: October 13, 2021 Attending Provider at Admission: Anatoly Saunders MD Attending Provider at Discharge: Sourav Stuart MD Primary Care Provider: Kian Colon MD Diagnoses at Discharge Discharge Diagnosis (1) Chest pain: Status: Acute (2) CHF exacerbation: Status: Acute (3) Hyperlipidemia: Status: Acute (4) Mild aortic regurgitation: Status: Acute (5) Hypertension, essential: Status: Acute (6) Cardiomyopathy: Status: Acute Qualifiers: Cardiomyopathy type: dilated Qualified Code(s): I42.0 - Dilated cardiomyopathy Permanent problem details: CAD with stent in LAD Reason for Visit Reason for Visit: cp Hospital Course Hospital Course 68-year-old male with history of end-stage renal disease, dialysis dependent, presented with worsening shortness of breath and fluid overload state he was diagnosed with reduced action fraction heart failure exacerbation EF 20% which is acute onset. He does carry history of coronary disease with stent in LAD and RCA. For CHF exacerbation he did require inpatient dialysis and Lasix therapy which improved his fluid status. With dropping EF and elevated troponin cardiology was consulted. Coronary angiogram was unremarkable, he has patent stent in LAD and RCA. No new intervention during this angiogram. Patient has a tunneled dialysis catheter and he has chair time Tuesday and Tuesday with [facility]. He is an ideal candidate for LifeVest. We will continue his aspirin, lisinopril, hydralazine, Coreg. He will follow-up with senior oracle database administrator. Previously he was following up with Dr. Berrios. Antibiotics was discontinued, his leukocytosis was secondary to use of Solu-Medrol which was given for concern of gout of right knee. We have faxed our documents for LifeVest arrangement today, patient is very anxious and eager to return home, senior oracle database administrator has asked me to discharge him home and arrange his LifeVest at home if possible today. Physical Exam Narrative: Patient is resting comfortably Nonfocal neuro exam Clinically does not look fluid overloaded Looks euvolemic Currently satting well on room air Pleasant and cooperative Nonfocal neuro exam Dialysis catheter in place, Abdomen soft Tunneled dialysis catheter rightIJ Discharge Data Studies Completed and Pending Completed Studies During Hospitalization Category Date Time Status CTA chest [CT angio chest PE protcl 40409] Urgent Cat Scan 10/10/21 04:46 Completed XR chest 1V portable 15029 Stat Exams 10/10/21 02:56 Completed XR knee RT 1-2V 20710 Stat Exams 10/10/21 07:59 Completed CV. echo limited 12686 Routine Ultrasound 10/10/21 10:21 Completed Pending at discharge Category Date Time Status AIR CONDITIONING SPECIALIST request for service Routine Exams 10/12/21 06:17 Taken Blood Culture Stat Lab 10/10/21 08:48 Results Radiology Impressions Chest X-Ray 10/10/21 02:56 IMPRESSION: Probable mild bilateral basilar atelectasis. Chest CTA 10/10/21 04:46 IMPRESSION: 1. There is no evidence for pulmonary emboli. 2. Mildly prominent mediastinal lymph nodes are seen, the largest seen in the precarinal region measuring 14.3 mm transverse dimension. This lymph node is slightly larger today compared with 04/13/2019. 3. There are no acute chest findings. Knee X-Ray 10/10/21 07:59 IMPRESSION: No acute bone abnormality Laboratory Results WBC 10.8 10^3/uL (4.0-10.0) H 10/11/21 05:05 RBC 3.25 10^6/uL (4.1-5.3) L 10/11/21 05:05 Hgb 9.2 g/dL (11.7-16.6) L 10/11/21 05:05 Hct 29.2 % (42.0-52.0) L 10/11/21 05:05 MCV 89.8 fl (80-94) 10/11/21 05:05 MCH 28.3 pg (28.0-34.0) 10/11/21 05:05 MCHC 31.5 g/dL (30.0-36.0) 10/11/21 05:05 RDW 17.2 % (12.1-15.1) H 10/11/21 05:05 Plt Count 218 10^3/cmm (130-400) 10/11/21 05:05 MPV 11.4 fL (7.4-10.4) H 10/11/21 05:05 Neut % (Auto) 77.4 % 10/11/21 05:05 Lymph % (Auto) 11.1 % 10/11/21 05:05 Benzie % (Auto) 9.3 % 10/11/21 05:05 Eos % (Auto) 1.5 % 10/11/21 05:05 Baso % (Auto) 0.1 % 10/11/21 05:05 Neut # (Auto) 8.35 10^3/uL (1.8-7.7) H 10/11/21 05:05 Lymph # (Auto) 1.2 10^3/uL (0.8-4.8) 10/11/21 05:05 Benzie # (Auto) 1.0 10^3/uL (0.2-0.9) H 10/11/21 05:05 Eos # (Auto) 0.2 10^3/uL (0.0-0.8) 10/11/21 05:05 Baso # (Auto) 0.0 10^3/uL (0.0-0.1) 10/11/21 05:05 Nucleated RBC % (auto) 0 % 10/11/21 05:05 Nucleated RBCs # 0.0 /100WBC 10/11/21 05:05 ESR 49 mm/hr (0-10) H 10/10/21 02:38 PT 12.80 SECONDS (12.1-14.9) 10/12/21 05:12 INR 0.94 (0.8-1.2) 10/12/21 05:12 Sodium 140 mmol/L (136-145) 10/13/21 05:20 Potassium 3.9 mmol/L (3.5-5.1) 10/13/21 05:20 Chloride 104 mmol/L (98-107) 10/13/21 05:20 Carbon Dioxide 26 mmol/L (22-29) 10/13/21 05:20 Anion Gap 13.9 (5-19) 10/13/21 05:20 BUN 34 mg/dL (8-23) H 10/13/21 05:20 Creatinine 4.4 mg/dL (0.7-1.2) H 10/13/21 05:20 GFR Calculation 16.4 mL/min (90-130) L 10/13/21 05:20 Glucose 131 mg/dL (65-115) H 10/13/21 05:20 Estimat Average Glucose 126 10/10/21 02:38 Hemoglobin A1c 6.0 % (4.0-6.0) 10/10/21 02:38 Calculated Osmolality 299 mOsm/kg (285-295) H 10/13/21 05:20 Lactic Acid 1.1 mmol/L (0.5-2.2) 10/10/21 08:50 Uric Acid 8.4 mg/dL (3.4-7.0) H 10/12/21 05:09 Calcium 6.8 mg/dL (8.5-10.5) L 10/13/21 05:20 Phosphorus 2.1 mg/dL (2.5-4.5) L 10/12/21 05:09 Magnesium 1.7 mg/dL (1.7-2.3) 10/13/21 05:20 Total Bilirubin 0.2 mg/dL (0.15-1.2) 10/10/21 02:38 AST 78 U/L (0-40) H 10/10/21 02:38 ALT 25 U/L (0-41) 10/10/21 02:38 Alkaline Phosphatase 150 IU/L (40-130) H 10/10/21 02:38 Creatine Kinase 158 U/L (39-308) 10/10/21 02:38 Troponin T Baseline 79 ng/L (0-15) H 10/10/21 12:06 Troponin T 120 Minute 89.81 ng/L (0-15) H 10/10/21 14:08 Delta Troponin T 10.81 ABS# (0-10) H* 10/10/21 14:08 Troponin T Hi Sens 6Hr 87.82 ng/L (0-15) H 10/10/21 18:15 Troponin T Hi Sens 6Hr Delta 8.82 ng/L (0-12) 10/10/21 18:15 C-Reactive Protein 3.0 mg/L (0.0-4.9) 10/13/21 05:20 NT-Pro-B Natriuret Pep 25141 pg/mL (0-125) H 10/12/21 05:09 Total Protein 6.2 g/dL (6.6-8.7) L 10/10/21 02:38 Albumin 2.7 g/dL (3.5-5.2) L 10/10/21 02:38 Globulin 3.5 g/dL (1.3-4.6) 10/10/21 02:38 Procalcitonin 0.62 ng/mL (0-0.5) H 10/12/21 05:09 Urine Color Yellow (Yellow) 10/10/21 08:15 Urine Appearance Clear (CLEAR) 10/10/21 08:15 Urine pH 6.5 (5-7) 10/10/21 08:15 Ur Specific [place] 1.005 (1.005-1.030) 10/10/21 08:15 Urine Protein 3+ (Negative) H 10/10/21 08:15 Urine Glucose (UA) Trace (Normal) H 10/10/21 08:15 Urine Ketones Negative (Negative) 10/10/21 08:15 Urine Blood Neg (Negative) 10/10/21 08:15 Urine Nitrate Negative (Negative) 10/10/21 08:15 Urine Bilirubin Neg (Negative) 10/10/21 08:15 Urine Urobilinogen Norm mg/dL (Negative) 10/10/21 08:15 Ur Leukocyte Esterase Negative (Negative) 10/10/21 08:15 Urine RBC Rare /hpf (0-2) 10/10/21 08:15 Urine WBC 5-10 /hpf (0-5) H 10/10/21 08:15 Ur Squamous Epith Cells 0-4 /hpf (0-5) H 10/10/21 08:15 Amorphous Sediment Not Reportable 10/10/21 08:15 Urine Bacteria Trace /hpf (NONE) 10/10/21 08:15 Urine Mucus Trace /hpf 10/10/21 08:15 Urine Opiates Screen Positive ng/mL (Negative) H 10/10/21 14:45 Ur Barbiturates Screen Negative ng/mL (Negative) 10/10/21 14:45 Ur Phencyclidine Scrn Negative ng/mL (Negative) 10/10/21 14:45 Ur Amphetamines Screen Positive ng/mL (Negative) H 10/10/21 14:45 U Benzodiazepines Scrn Negative ng/mL (Negative) 10/10/21 14:45 Urine Cocaine Screen Negative ng/mL (Negative) 10/10/21 14:45 U Marijuana (THC) Screen Negative ng/mL (Negative) 10/10/21 14:45 Ethyl Alcohol 15 mg/dL (0-10) H 10/10/21 02:38 Serum Ketones Negative (Negative) 10/10/21 02:38 Hep Bs Antigen Non-reactive (Nonreactive) 10/10/21 12:06 Hepatitis C Antibody Reactive (Nonreactive) H 10/10/21 12:06 HCV RNA (PCR) IUs/ml 6.98 Log IU/mL (NOT DETECTED) H 10/10/21 02:38 HCV RNA (PCR) IU log10 1130095 IU/mL (NOT DETECTED) H 10/10/21 02:38 Vitals Last Vital Signs Temp 97.8 F 10/13/21 08:00 Pulse 98 10/13/21 09:36 Resp 16 10/13/21 09:36 BP 143/94 10/13/21 08:00 Pulse Ox 98 10/13/21 09:36 Discharge Plan Discharge Patient Disposition: Home Condition: Stable Prescriptions: Continued triamcinolone acetonide 0.5 % cream 1 applic topical DAILY Qty: 15 0RF Combivent Respimat 20-100 mcg/actuation mist 1 puff inhalation Q4H PRN (Reason: wheezing) 30 Days Qty: 4 4RF fluticasone propionate [Flonase Allergy Relief] 50 mcg/actuation spray,suspension 1 spray intranasal BID 30 Days Qty: 16 4RF Rx Instructions: administer into each nostril (DME) Cane See Rx Instructions .Route .MEDSUPPLY Qty: 1 0RF Rx Instructions: As directed Anoro Ellipta 62.5-25 mcg/actuation blister with device 1 inh inhalation DAILY 60 Days Qty: 60 3RF albuterol sulfate 2.5 mg /3 mL (0.083 %) Solution For Nebulization 2.5 mg INHALATION QID PRN (Reason: Shortness Of Breath) 0RF furosemide 40 mg Tablet 80 mg PO BID@ 30 Days Qty: 80 0RF aspirin 81 mg Tablet,Delayed Release (Dr/Ec) 81 mg PO DAILY 30 Days Qty: 30 0RF calcium acetate [Calphron] 667 mg Tablet 1,334 mg PO TIDWM 30 Days Qty: 90 0RF nitroglycerin [Nitrostat] 0.4 mg tablet, sublingual 0.4 mg SUBLINGUAL Q5M PRN (Reason: Chest Pain) 30 Days Qty: 30 0RF atorvastatin 20 mg tablet 20 mg PO DAILY 30 Days Qty: 30 0RF hydrocodone-acetaminophen 5-325 mg tablet 1 tab PO BID PRN (Reason: pain) 5 Days Qty: 10 0RF ProAir HFA 90 mcg/actuation HFA aerosol inhaler 2 puff INHALATION Q6H PRN (Reason: Shortness Of Breath) 0RF trazodone 50 mg tablet 25 mg PO BEDTIME 0RF carvedilol 25 mg tablet 25 mg PO BID 30 Days Qty: 90 0RF Rx Instructions: must administer with a meal/food lisinopril 20 mg Tablet 20 mg PO DAILY 30 Days Qty: 30 3RF hydralazine 25 mg tablet 25 mg PO TID 30 Days Qty: 90 4RF Discontinued sildenafil 100 mg tablet 50 mg PO DAILY PRN (Reason: sexual activity) Qty: 30 0RF Hold Instructions: Resume on 11/04/21. hold until blood pressure check Rx Instructions: take 30 min to 4 hrs before activity,do not take Isosorbide on same day of use. prednisone 20 mg tablet 20 mg PO BID 7 Days Qty: 14 0RF Discharge Orders: Discharge Order (Routine); Ordered 10/13/21 Ordered By: Sourav Stuart Referrals: Kian Colon MD [Primary Care Provider] - 2 weeks Bne Rincon M.D [Physician] - 1 month Grazyna Florian FNP [Nurse Practitioner] - 1 week Discharge Diet: Cardiac Discharge Activity: Increase activity as tolerated Patient Instructions: Opioid Safety Discharge Attestations Time Spent in Discharge Care*: less than 30 min Quality Metrics Clinical Quality Measures [ No reported AMI, CVA or VTE this stay] Coding Level of Care Code Acute Chg FW DC note Diagnoses Chest pain R07.9 CHF exacerbation I50.9 Hyperlipidemia E78.5 Mild aortic regurgitation I35.1 Hypertension, essential I10 Cardiomyopathy I42.0 Cardiomyopathy type: dilated
--- NOTE | 2021-10-13 13:06 | PC.SOCIAL ---
Pg 2 IMM Explained to pt Pg 2 IMM. No questions voiced. Provided pt a copy. Initialed, dated, & timed a copy & placed in chart.
== END 2021-10-13 15:11 | disposition home health service (06) | DRG 280 ==
LOC: ER 08:09 → MEDSURG 09:35 → ICU 10-12 09:17 → MEDSURG 10-12 13:29
PROVIDERS: Emergency Medicine; Internal Medicine; Admitting Provider Family Medicine; Emergency Provider Family Medicine; PCP Family Medicine Adult Medicine; Visit Provider Internal Medicine
PROC: 4A023N7 Measurement of Cardiac Sampling and Pressure, Left Heart, Percutaneous Approach (ICD-10-PCS; principal; 2021-10-12 08:30)
DX: I13.2 Hypertensive heart and chronic kidney disease with heart failure and with stage 5 chronic kidney disease, or end stage renal disease (principal); I50.23 Acute on chronic systolic (congestive) heart failure; I21.4 Non-ST elevation (NSTEMI) myocardial infarction; N18.6 End stage renal disease; N13.8 Other obstructive and reflux uropathy; Z99.2 Dependence on renal dialysis; I50.32 Chronic diastolic (congestive) heart failure; I25.5 Ischemic cardiomyopathy; D63.1 Anemia in chronic kidney disease; N40.1 Benign prostatic hyperplasia with lower urinary tract symptoms; I25.10 Atherosclerotic heart disease of native coronary artery without angina pectoris; Z95.5 Presence of coronary angioplasty implant and graft; J44.9 Chronic obstructive pulmonary disease, unspecified; Z86.711 Personal history of pulmonary embolism; E78.5 Hyperlipidemia, unspecified; I27.20 Pulmonary hypertension, unspecified; Z87.891 Personal history of nicotine dependence; Z79.891 Long term (current) use of opiate analgesic; Z79.82 Long term (current) use of aspirin; Z79.51 Long term (current) use of inhaled steroids; E83.42 Hypomagnesemia; M10.9 Gout, unspecified; I35.1 Nonrheumatic aortic (valve) insufficiency; G47.33 Obstructive sleep apnea (adult) (pediatric)
CPT/HCPCS: 36415; 71045; 71275; 73560; 80048; 80053; 80306; 80307; 81001; 81003; 82009; 82550; 83036; 83605; 83735; 83880; 84100; 84145; 84484; 84550; 85025; 85610; 85651; 86140; 86803; 87040; 87340; 87522; 93005; 93308; 93458; 94664; 96372; 96374; 96375; 96376; 99285; C1769; C1887; C1894; C9113; J1644; J1940; J1956; J2250; J2270; J2405; J3010; J3370; J3475; J3490; J7030; J7050; Q3014; Q9967

== ENCOUNTER → 2021-10-19 13:12 | Outpatient (BNVA) | payer MEDICARE, SELFPAY | PROVIDERS: PCP Family Medicine Adult Medicine; Visit Provider Nurse Practitioner Family | DX: I42.9 Cardiomyopathy, unspecified (principal); I13.0 Hypertensive heart and chronic kidney disease with heart failure and stage 1 through stage 4 chronic kidney disease, or unspecified chronic kidney disease; I50.9 Heart failure, unspecified; N18.4 Chronic kidney disease, stage 4 (severe); Z99.2 Dependence on renal dialysis; Z87.891 Personal history of nicotine dependence | CPT/HCPCS: 99213; 99214 ==

== ENCOUNTER → 2021-11-18 14:10 | Outpatient (BNVA) | payer MEDICARE, SELFPAY | PROVIDERS: PCP Family Medicine Adult Medicine; Visit Provider Internal Medicine | DX: I42.0 Dilated cardiomyopathy (principal); I13.0 Hypertensive heart and chronic kidney disease with heart failure and stage 1 through stage 4 chronic kidney disease, or unspecified chronic kidney disease; N18.30 Chronic kidney disease, stage 3 unspecified; I50.9 Heart failure, unspecified; Z87.891 Personal history of nicotine dependence | CPT/HCPCS: 99214 ==

== ENCOUNTER 2021-11-30 | Day surgery (SDC) | payer MEDICARE, SELFPAY ==
--- NOTE | 2021-11-30 14:07 | P.ANESASSM_ITS ---
Pre-Anesthetic Assessment Height/Weight: Height 1.75 m Preop Diagnosis: Stenosis with neurogenic claudication, previous lumbar fusion Operation Date: 12/02/21 08:40 Proposed Procedures p Spinal Fusion L3-S1 [id number]/43083/74689/M48.062(Not Applicable) - DO candi Thorne Posterior Lumbar Interbody Fusion L5/S1(Not Applicable) - James Jj DO Familial anesthetic complications: None Social No alcohol and No tobacco Exam alert, oriented x 3, clear to auscultation bilaterally and regular rate & rhythm Airway Mallampati: Class II Dentition: partials Pulmonary Chronic Obstructive Pulmonary Disease pulm HTN CV/HEM Coronary Artery Disease (stents), Congestive Heart Failure and Myocardial Infarction Patient received cardiology clearance from [facility] to undergo surgery. External defibrillator/life vest placed about a month ago 10/23 Care Manager Cna Conclusions ? 1. No significant disease noted in the Left Main, Left Anterior Descending, Right, or Circumflex coronary arteries. ? 2. Patent prior RCA and LAD stents 10/23 echo CONCLUSIONS ?This is a limited echocardiogram performed to assess LV systolic ?function. ?LV systolic function is severely reduced with EF of 20-25%.? ?Severe global hypokinesis is seen.? ?Compared to prior echocardiogram from 10/02/2021, no significant ?changes are seen. Chronic Renal Failure (dialysis) and Chronic Renal Insufficiency Hepatic None reported GI None reported Metabolic None reported Musc/skel None reported Neuropsych None reported Anesthetic Plan ASA status: 4 Anesthesia: General Risk of > 500 ml blood loss (7ml/kg in children): Yes, adequate IV access and fluids planned Other Pertinent Information Patient informed of highly elevated risk of cardiac complications in setting of prior history and low EF. Wishes to proceed. Did receive cardiology clearance. Medications/Allergies Home Medications Medication Instructions Recorded Confirmed Last Taken Type Cane #1 ea 10/03/20 11/18/21 Unknown Rx fluticasone propionate 50 1 spray intranasal BID 30 days #16 08/05/21 11/30/21 Unknown Rx mcg/actuation nasal grams spray,suspension (Flonase Allergy Relief) ipratropium 20 mcg-albuterol 100 1 puff inhalation Q4H PRN wheezing 08/05/21 11/30/21 Unknown Rx mcg/actuation mist for inhalation 30 days #4 grams (Combivent Respimat) albuterol sulfate 2.5 mg inhalation QID PRN 10/02/21 11/30/21 Unknown History Shortness Of Breath nitroglycerin 0.4 mg sublingual 0.4 mg sublingual Q5M PRN Chest 10/07/21 11/30/21 Unknown Rx tablet (Nitrostat) Pain 30 days #30 tabs albuterol sulfate 90 mcg/actuation 2 puff inhalation Q6H PRN 10/10/21 11/30/21 U nknown History aerosol inhaler (ProAir HFA) Shortness Of Breath trazodone 50 mg tablet 25 mg PO BEDTIME Insomnia 10/10/21 11/30/21 Unknown History carvedilol 25 mg tablet 25 mg PO BID 30 days #90 tabs 10/13/21 11/30/21 Unknown Rx hydralazine 50 mg tablet 50 mg PO TID #90 tabs 10/22/21 11/30/21 Unknown Rx sertraline 25 mg tablet 25 mg PO DAILY anxiety #30 tabs 11/18/21 11/30/21 Unknown Rx triamcinolone acetonide 0.5 % 1 applic topical DAILY #15 grams 11/18/21 11/30/21 Unknown Rx topical cream Allergies Allergy/AdvReac Type Severity Reaction Status Date / Time No Known Allergies Allergy Verified 11/30/21 13:48 [facility] Anesthesia Medical History (Updated 11/18/21 @ 15:58 by Kian Colon MD) Anemia in chronic kidney disease (CKD) BPH NOS w ur obs/LUTS Cellulitis Chest pain CHF exacerbation Combined D/S CHF CHF exacerbation CKD (chronic kidney disease) stage 4, GFR 15-29 ml/min COPD exacerbation Elevated PSA End stage renal disease Erectile dysfunction Gout attack History of pulmonary embolism Hyperkalemia Hyperlipidemia Hypersomnolence Hypertension, essential Hypoalbuminemia Insomnia Leukocytosis Mild aortic regurgitation Mild aortic stenosis 12/07/2018: Mean gradient 4.6 mmHg, aortic valve area 2.2 cm? Moderate pulmonary arterial systolic hypertension NSTEMI (non-ST elevated myocardial infarction) Obstructive sleep apnea Smoking Quit 2020 Stasis dermatitis of lower extremity due to chronic peripheral vascular hypertension Tear of left rotator cuff Surgical History H/O abdominal surgery hernia History of ankle surgery History of back surgery Postoperative state Family History Family/Other Cancer Mother Dementia Diabetes Sister Diabetes CAD (coronary artery disease) Father , AT AGE 78 Brain aneurysm Denies family history of Clotting disorder Hyperlipidemia Psychiatric illness Chronic kidney disease (CKD) Suicide Anesthesia complication Bleeding disorder Family history of premature coronary artery disease Lung disease Hypertension Stroke Social History Smoking and tobacco status: former smoker Quit status (tobacco): has quit using tobacco Year quit tobacco: 2020 Former quit date comment: 0.5 ppd X 15 years Alcohol intake: former Marital status: Current occupational status: disabled History of recent travel: No Data Anesthesia Cardiac Studies: Echocardiogram 10/02/21 Echocardiogram Limited Views 10/10/21 Echocardiogram Ultrasound 06/18/20 Sestamibi Stress Test (Cardiology) 06/19
[2021-11-30 14:10] VITALS: BMI 26.1
[2021-11-30 14:29] LABS: Basophils % 0.8 %; Eosinophils # 0.2 10^3/uL (0.0-0.8); Eosinophils % 4.9 %; Hematocrit 37.2 % (42.0-52.0); Hemoglobin 11.6 g/dL (11.7-16.6); Lymphocytes # 1.2 10^3/uL (0.8-4.8); Lymphocytes % 24.5 %; Mean Corpuscular HGB Conc 31.2 g/dL (30.0-36.0); Mean Corpuscular Hemoglobin 30.4 pg (28.0-34.0); Mean Corpuscular Volume 97.6 fl (80-94); Monocytes # 0.6 10^3/uL (0.2-0.9); Monocytes % 12.4 %; Neutrophils # 2.82 10^3/uL (1.8-7.7); Neutrophils % 57.2 %; Nucleated Red Blood Cells % 0 %; Platelet Count 221 10^3/cmm (130-400); Red Blood Count 3.81 10^6/uL (4.1-5.3); White Blood Count 4.9 10^3/uL (4.0-10.0)
[2021-11-30 14:49] LABS: Anion Gap 16.4 (5-19); Blood Urea Nitrogen 36 mg/dL (8-23); Calcium 8.1 mg/dL (8.5-10.5); Carbon Dioxide 24 mmol/L (22-29); Chloride 106 mmol/L (98-107); Glomerular Filtration Rate 12.6 mL/min (90-130); Glucose 76 mg/dL (65-115); Osmolality Calculated 301 mOsm/kg (285-295); Potassium 4.4 mmol/L (3.5-5.1); Sodium 142 mmol/L (136-145)
== END 2021-12-02 23:00 | disposition home or self-care (01) ==
LOC: OR 01-31 19:43
PROVIDERS: Anesthesiology; PCP Family Medicine Adult Medicine; Visit Provider Orthopaedic Surgery
DX: Z01.818 Encounter for other preprocedural examination (principal)
CPT/HCPCS: 80048; 85025

== ENCOUNTER 2021-12-20 06:16 | Day surgery (SDC) | payer MEDICARE, SELFPAY ==
[2021-12-20] VITALS (15 sets, daily range): BP systolic 144–169; BP diastolic 62–106; PULSE 18–92; RESP 18–185; TEMP 36.2–36.9; O2SAT 96–100; BMI 25.8
--- NOTE | 2021-12-20 | SCC_ITS ---
Procedure: [Right] Internal Jugular Tunneled hemodialysis catheter placement under Ultrasound and fluoroscopic guidance, radiologic supervision and interpretation (CPTs: 88812, 20093, 29380) 7.2 seconds of fluoroscopic guidance, for a cumulative dose of 0.55 mGy, was provided to Dr. Do by the radiology department. C-arm images of the chest were saved for the patient's permanent record. [facility]
--- NOTE | 2021-12-20 06:28 | ED_ITS ---
HPI - General Adult General: Chief complaint: General Medical Stated complaint: PULLED OUT DIALYSIS PORT Time Seen by Provider: 12/20/21 06:19 Source: patient and EMS Mode of arrival: EMS Limitations: no limitations History of Present Illness: 66-year-old male who recently has been started on dialysis goes Tuesday did receive dialysis yesterday. He states he woke up this morning and has dialysis port had fallen out of his right chest wall he is unsure what happened he thinks he may remove the stitches yesterday because he is having some skin irritation he denies any pain no other complaints at this time. Associated symptoms: Deny chest pain, dyspnea, headache(s), nausea, rash or vomiting Review of Systems Const: Denies: fever(s), chills, body aches or change in appetite Eyes: Denies: blurry vision or eye discomfort ENMT: Denies: throat pain or dental pain Card: Denies: chest pain Resp: Denies: dyspnea GI: Denies: abdominal pain, nausea, vomiting or diarrhea : Denies: dysuria Musc: Denies: neck pain or back pain Skin/Breast: Denies: rash Neuro: Denies: headache(s) Psych: Denies: depression Kameron/Lymph: Denies: easy bruising All/Imm: Denies: urticaria PFSH ED PFSH: Medical History Anemia in chronic kidney disease (CKD) BPH NOS w ur obs/LUTS Cellulitis Chest pain CHF exacerbation Combined D/S CHF CHF exacerbation CKD (chronic kidney disease) stage 4, GFR 15-29 ml/min COPD exacerbation Elevated PSA End stage renal disease Erectile dysfunction Gout attack History of pulmonary embolism Hyperkalemia Hyperlipidemia Hypersomnolence Hypertension, essential Hypoalbuminemia Insomnia Leukocytosis Mild aortic regurgitation Mild aortic stenosis 12/07/2018: Mean gradient 4.6 mmHg, aortic valve area 2.2 cm? Moderate pulmonary arterial systolic hypertension NSTEMI (non-ST elevated myocardial infarction) Obstructive sleep apnea Smoking Quit 2020 Stasis dermatitis of lower extremity due to chronic peripheral vascular hypertension Tear of left rotator cuff Surgical History H/O abdominal surgery hernia History of ankle surgery History of back surgery Postoperative state Family History Family/Other Cancer Mother Dementia Diabetes Sister Diabetes CAD (coronary artery disease) Father , AT AGE 78 Brain aneurysm Denies family history of Clotting disorder Hyperlipidemia Psychiatric illness Chronic kidney disease (CKD) Suicide Anesthesia complication Bleeding disorder Family history of premature coronary artery disease Lung disease Hypertension Stroke Social History Smoking and tobacco status: former smoker Quit status (tobacco): has quit using tobacco Year quit tobacco: 2020 Former quit date comment: 0.5 ppd X 15 years Alcohol intake: former Marital status: Current occupational status: disabled History of recent travel: No Physical Exam Const: COMMON NORMALS: no acute distress, patient oriented x3 and healthy appearing HENMT: COMMON NORMALS: normocephalic and atraumatic HEAD & SCALP: normocephalic and atraumatic Eye: COMMON NORMALS: Equal, round and reactive pupils present and EOMs intact bilaterally PUPIL: Yes Equal, round and reactive pupils present Neck/C-Spine: COMMON NORMALS: full ROM and supple Chest: COMMONS NORMALS: normal inspection of the chest and normal palpation of entire chest wall OTHER: Slight bleeding from where his dialysis port was in the right chest Resp: COMMON NORMALS: normal respiratory effort, No retractions, No use of accessory muscles and clear to auscultation bilaterally AUSCULTATION: clear to auscultation bilaterally Cardio: COMMON NORMALS: regular rate, regular rhythm and No murmurs present (Cardio) RATE: regular rate RHYTHM: regular rhythm GI: COMMON NORMALS: Normal to inspection, nondistended, normoactive bowel sounds present, Soft to palpation, non-tender and no masses PALPATION: Yes Soft to palpation Extremity: COMMON NORMALS: normal to inspection and full ROM Neuro: COMMON NORMALS: patient oriented x3, moves all extremities and no focal motor deficits Psych: COMMON NORMALS: mental status grossly normal, Normal thought process present and cooperative THOUGHT PROCESS: Normal thought process present Skin: COMMON NORMALS: no rashes or lesions noted and no wounds GENERAL SKIN EXAM: no rashes or lesions noted Course Vital Signs: Vital signs: Vital Signs Temperature 98.4 F 12/20/21 06:19 Pulse Rate 84 12/20/21 06:19 Respiratory Rate 19 H 12/20/21 06:30 Blood Pressure 159/103 12/20/21 06:30 Pulse Oximetry 99 12/20/21 06:30 Oxygen Delivery Me thod 12/20/21 06:30 MDM - General Adult Medical Decision Making Patient presents here after his dialysis port has fallen out. I spoken to surgeon here is can take to the OR and we will place a new catheter. Patient's been stable here. Discharge Plan Discharge Patient Disposition: Placed in Observation Clinical Impression: Complications, mechanical, catheter, dialysis Coding Level of Care Code ED [employer] Sk[employer] Assembler for Ramana Fwzo Exam Comprehensive
--- NOTE | 2021-12-20 06:57 | PC.NURSE ---
report given to bal barboza
--- NOTE | 2021-12-20 07:45 | ANES.PREANE2 ---
Pre-Anesthetic Assessment Height/Weight: Height 1.73 m Weight 77.111 kg Temp Pulse Resp BP Pulse Ox O2 Del Method 98.4 F 84 19 H 159/103 99 12/20/21 06:19 12/20/21 06:19 12/20/21 06:30 12/20/21 06:30 12/20/21 06:30 12/20/21 06:30 Preop Diagnosis: Stenosis with neurogenic claudication, previous lumbar fusion Operation Date: 12/20/21 08:20 Proposed Procedures p Dialysis Catheter Insertion(Not Applicable) - Larry Do MD Familial anesthetic complications: None Was Beta Aggie taken within 24 hours: Yes Was Clonidine taken within 24 hours: N/A Social No alcohol and No tobacco Grade 2 view Mac 3.5, ETT 7.5 09/18/2020 Exam alert, oriented x 3, clear to auscultation bilaterally and regular rate & rhythm Airway Submandibular: within normal limits Cervical ROM: within normal limits Mallampati: Class I Dentition: full History/ROS No significant complaints Pulmonary Chronic Obstructive Pulmonary Disease and Sleep Apnea Hx of PE Moderate pulm. HTN CTA 10/10/21 CT/CT angio chest PE protcl [id number] IMPRESSION: 1. There is no evidence for pulmonary emboli. 2. Mildly prominent mediastinal lymph nodes are seen, the largest seen in the precarinal region measuring 14.3 mm transverse dimension. This lymph node is slightly larger today compared with 04/13/2019. 3. There are no acute chest findings. ? CV/HEM Anemia (Hgb 11.6 11/30/21), Congestive Heart Failure (EF 20-25%), Hypertension, Myocardial Infarction and Murmur Aortic stenosis Cath Report 10/12/21 Conclusions ? 1. No significant disease noted in the Left Main, Left Anterior Descending, Right, or Circumflex coronary arteries. ? 2. Patent prior RCA and LAD stents. 10/10/21 TTE ?CONCLUSIONS ?This is a limited echocardiogram performed to assess LV systolic ?function. ?LV systolic function is severely reduced with EF of 20-25%.? ?Severe global hypokinesis is seen.? ?Compared to prior echocardiogram from 10/02/2021, no significant ?changes are seen TTE from cardiology note 11/18/21 [address] Doctor Rincon 10/02/21 Procedure(s): CV. echo complete* [id number] ?CONCLUSIONS ?Severely increased left ventricular cavity size. Normal left ?ventricular wall thickness. Severely decreased left ventricular ?systolic function. Left ventricular ejection fraction is ?estimated at 20 %. Grade III/IV diastolic dysfunction ?(restrictive filling pattern), severely elevated filling ?pressures. Global left ventricular hypokinesis. ?Normal right ventricular size. Moderately decreased right ?ventricular systolic function. Moderate pulmonary hypertension, ?RVSP 59 mmHg. ?Mildly increased right atrial size. ?Mildly increased left atrial size. ?Structurally normal mitral valve. Mild mitral valve ?regurgitation. ?Structurally normal trileaflet aortic valve. No aortic valve ?stenosis. [id number] aortic valve regurgitation. Chronic Renal Failure BPH Hepatic None reported GI None reported Metabolic Hyperlipidemia Musc/skel None reported Neuropsych Anxiety Anesthetic Plan ASA status: 4 Anesthesia: Anesthesia Evaluation, General and MAC Other: We discussed risk and benefits of general anesthesia including PONV, sore throat (sometimes severe), corneal abrasion, positioning and peripheral nerve injuries, life threatening allergic reaction, post operative ICU admission requiring prolonged intubation, stroke, heart attack, , and rare incidences of recall. Patient consents to proceed with general anesthesia. Risk of > 500 ml blood loss (7ml/kg in children): No Medications/Allergies Home Medications Medication Instructions Recorded Confirmed Last Taken Type Cane #1 ea 10/03/20 11/18/21 Unknown Rx fluticasone propionate 50 1 spray intranasal BID 30 days #16 08/05/21 11/30/21 Unknown Rx mcg/actuation nasal grams spray,suspension (Flonase Allergy Relief) ipratropium 20 mcg-albuterol 100 1 puff inhalation Q4H PRN wheezing 08/05/21 11/30/21 Unknown Rx mcg/actuation mist for inhalation 30 days #4 grams (Combivent Respimat) albuterol sulfate 2.5 mg inhalation QID PRN 10/02/21 11/30/21 Unknown History Shortness Of Breath nitroglycerin 0.4 mg sublingual 0.4 mg sublingual Q5M PRN Chest 10/07/21 11/30/21 Unknown Rx tablet (Nitrostat) Pain 30 days #30 tabs albuterol sulfate 90 mcg/actuation 2 puff inhalation Q6H PRN 10/10/21 11/30/21 Unknown History aerosol inhaler (ProAir HFA) Shortness Of Breath trazodone 50 mg tablet 25 mg PO BEDTIME Insomnia 10/10/21 11/30/21 Unknown History carvedilol 25 mg tablet 25 mg PO BID 30 days #90 tabs 10/13/21 11/30/21 Unknown Rx hydralazine 50 mg tablet 50 mg PO TID #90 tabs 10/22/21 11/30/21 Unknown Rx sertraline 25 mg tablet 25 mg PO DAILY anxiety #30 tabs 11/18/21 11/30/21 Unknown Rx triamcinolone acetonide 0.5 % 1 applic topical DAILY #15 grams 11/18/21 11/30/21 Unknown Rx topical cream Allergies Allergy/AdvReac Type Severity Reaction Status Date / Time No Known Allergies Allergy Verified 11/30/21 13:48 [facility] Anesthesia Medical History Anemia in chronic kidney disease (CKD) BPH NOS w ur obs/LUTS Cellulitis Chest pain CHF exacerbation Combined D/S CHF CHF exacerbation CKD (chronic kidney disease) stage 4, GFR 15-29 ml/min COPD exacerbation Elevated PSA End stage renal disease Erectile dysfunction Gout attack History of pulmonary embolism Hyperkalemia Hyperlipidemia Hypersomnolence Hypertension, essential Hypoalbuminemia Insomnia Leukocytosis Mild aortic regurgitation Mild aortic stenosis 12/07/2018: Mean gradient 4.6 mmHg, aortic valve area 2.2 cm? Moderate pulmonary arterial systolic hypertension NSTEMI (non-ST elevated myocardial infarction) Obstructive sleep apnea Smoking Quit 2020 Stasis dermatitis of lower extremity due to chronic peripheral vascular hypertension Tear of left rotator cuff Surgical History H/O abdominal surgery hernia History of ankle surgery History of back surgery Postoperative state Family History Family/Other Cancer Mother Dementia Diabetes Sister Diabetes CAD (coronary artery disease) Father , AT AGE 78 Brain aneurysm Denies family history of Clotting disorder Hyperlipidemia Psychiatric illness Chronic kidney disease (CKD) Suicide Anesthesia complication Bleeding disorder Family history of premature coronary artery disease Lung disease Hypertension Stroke Social History Smoking and tobacco status: former smoker Quit status (tobacco): has quit using tobacco Year quit tobacco: 2020 Former quit date comment: 0.5 ppd X 15 years Alcohol intake: former Marital status: Current occupational status: disabled History of recent travel: No Data Anesthesia : 12/20/21 08:18 12/20/21 08:18 Cardiac Studies: Echocardiogram 10/02/21 Echocardiogram Limited Views 10/10/21 Echocardiogram Ultrasound 06/18/20 Sestamibi Stress Test (Cardiology) 06/19/20
--- NOTE | 2021-12-20 08:03 | PM.CONSULT ---
Providers/Reason For Consult Consulting Physician/Specialty*: General surgery Reason for Consult*: Replacement of hemodialysis catheter Attending Physician: Larry Do MD Primary Care Provider: Kian Colon MD History of Present Illness History of Present Illness Fredy Hammonds is a 66 year old male He was started on dialysis about a month ago, TTS schedule, through the tunneled right chest catheter. HD Graft was placed about a month ago by Dr. Kauffman in [place]. The graft was not cleared for use yet. The patient also had an external defibrillator for about a month. So far, he did not receive any shocks. He is on Eliquis, he is not sure why. History of liver cirrhosis as well. He presented to the emergency room because his dialysis catheter came out. There was a little bit of bleeding which stopped by itself. Admits shortness of breath with physical exertion. Denies chest pain. The patient is a poor historian overall. He mentioned temporary dialysis and hypertension as his medical problems, however, upon review of the chart he has minimal medical problems including liver cirrhosis and pulmonary hypertension. Review of Systems Narrative: 10 point review of systems is negative except as per HPI Medications/Allergies Home Medications Medication Instructions Recorded Confirmed Last Taken Type Cane #1 ea 10/03/20 11/18/21 Unknown Rx fluticasone propionate 50 1 spray intranasal BID 30 days #16 08/05/21 11/30/21 Unknown Rx mcg/actuation nasal grams spray,suspension (Flonase Allergy Relief) ipratropium 20 mcg-albuterol 100 1 puff inhalation Q4H PRN wheezing 08/05/21 11/30/21 Unknown Rx mcg/actuation mist for inhalation 30 days #4 grams (Combivent Respimat) albuterol sulfate 2.5 mg inhalation QID PRN 10/02/21 11/30/21 Unknown History Shortness Of Breath nitroglycerin 0.4 mg sublingual 0.4 mg sublingual Q5M PRN Chest 10/07/21 11/30/21 Unknown Rx tablet (Nitrostat) Pain 30 days #30 tabs albuterol sulfate 90 mcg/actuation 2 puff inhalation Q6H PRN 10/10/21 11/30/21 Unknown History aerosol inhaler (ProAir HFA) Shortness Of Breath trazodone 50 mg tablet 25 mg PO BEDTIME Insomnia 10/10/21 11/30/21 Unknown History carvedilol 25 mg tablet 25 mg PO BID 30 days #90 tabs 10/13/21 11/30/21 Unknown Rx hydralazine 50 mg tablet 50 mg PO TID #90 tabs 10/22/21 11/30/21 Unknown Rx sertraline 25 mg tablet 25 mg PO DAILY anxiety #30 tabs 11/18/21 11/30/21 Unknown Rx triamcinolone acetonide 0.5 % 1 applic topical DAILY #15 grams 11/18/21 11/30/21 Unknown Rx topical cream Allergies Allergy/AdvReac Type Severity Reaction Status Date / Time No Known Allergies Allergy Verified 11/30/21 13:48 PFSH Acute PFSH: Medical History Anemia in chronic kidney disease (CKD) BPH NOS w ur obs/LUTS Cellulitis Chest pain CHF exacerbation Combined D/S CHF CHF exacerbation CKD (chronic kidney disease) stage 4, GFR 15-29 ml/min COPD exacerbation Elevated PSA End stage renal disease Erectile dysfunction Gout attack History of pulmonary embolism Hyperkalemia Hyperlipidemia Hypersomnolence Hypertension, essential Hypoalbuminemia Insomnia Leukocytosis Mild aortic regurgitation Mild aortic stenosis 12/07/2018: Mean gradient 4.6 mmHg, aortic valve area 2.2 cm? Moderate pulmonary arterial systolic hypertension NSTEMI (non-ST elevated myocardial infarction) Obstructive sleep apnea Smoking Quit 2020 Stasis dermatitis of lower extremity due to chronic peripheral vascular hypertension Tear of left rotator cuff Surgical History H/O abdominal surgery hernia History of ankle surgery History of back surgery Postoperative state Family History Family/Other Cancer Mother Dementia Diabetes Sister Diabetes CAD (coronary artery disease) Father , AT AGE 78 Brain aneurysm Denies family history of Clotting disorder Hyperlipidemia Psychiatric illness Chronic kidney disease (CKD) Suicide Anesthesia complication Bleeding disorder Family history of premature coronary artery disease Lung disease Hypertension Stroke Social History Smoking and tobacco status: former smoker Quit status (tobacco): has quit using tobacco Year quit tobacco: 2020 Former quit date comment: 0.5 ppd X 15 years Alcohol intake: former Marital status: Current occupational status: disabled History of recent travel: No Vitals/I&O/Wt Last Vital Signs Temp 98.4 F 12/20/21 06:19 Pulse 84 12/20/21 06:19 Resp 19 H 12/20/21 06:30 BP 159/103 12/20/21 06:30 Pulse Ox 99 12/20/21 06:30 O2 Del Method 12/20/21 06:30 Weight last 48 hrs Weight 170 lb Physical Exam Narrative: General: No acute distress Psych: [AAOx3] Eyes: [sclerae are white] Head/ENT: [normocephalic, symmetric] CV: [regular] pulse, no JVD. Graft is located in the left forearm, mild thrill is present. [place] are in place. External defibrillator is across the chest. Lungs: [symmetrical chest rise] Abdomen: [soft, ND] Ext: [no obvious traumatic deformities] Skin: warm Data : 12/20/21 08:18 12/20/21 08:18 Other Labs: Labs were not collected yet, pending A&P Assessment and plan (1) Hyperlipidemia: Status: Acute (2) Mild aortic regurgitation: (3) Hypertension, essential: Status: Acute (4) Cardiomyopathy: Qualifiers: Cardiomyopathy type: dilated Qualified Code(s): I42.0 - Dilated cardiomyopathy (5) ESRD (end stage renal disease) on dialysis: Status: Acute (6) Anticoagulation adequate with anticoagulant therapy: Status: Acute Plan Replacement of dialysis catheter was discussed with the patient. Labs are pending. He is on Eliquis. If his potassium and INR is acceptable, will replace the catheter and discharge him home today. The risks and benefits of procedure were discussed with the patient including possibility of infection, bleeding, damage to surrounding structures, poor function of the catheter and need to replace the catheter. Alternatives will be not to place the catheter, however, in this case the patient may not be able to have hemodialysis. The patient agreed to proceed with surgery. The plan discussed with emergency room physician. From his standpoint, the patient does not require an inpatient admission as well and his medical problems are stable. Coding Level of Care Code Acute Medical Claims Processor for [facility] Fwd Diagnoses Hyperlipidemia E78.5 Mild aortic regurgitation I35.1 Hypertension, essential I10 Cardiomyopathy I42.0 Cardiomyopathy type: dilated ESRD (end stage renal disease) on dialysis N18.6; Z99.2 Anticoagulation adequate with anticoagulant therapy Z79.01
--- NOTE | 2021-12-20 08:18 | XRR_ITS ---
PROCEDURE INFORMATION: Exam: XR Chest Exam date and time: 12/20/2021 8:22 AM Age: 66 years old Clinical indication: Shortness of breath; Prior surgery; Additional info: SOB TECHNIQUE: Imaging protocol: Radiologic exam of the chest. Views: 1 view. COMPARISON: CR XR chest 1V portable [id number] 10/10/2021 3:08 AM FINDINGS: Tubes, catheters and devices: Interval removal of right IJ approach tunneled dialysis catheter. Monitoring devices project over the lower chest. Lungs: There is mildly increased lung markings, suggestive of pulmonary congestion. Linear atelectasis/trace amount of fluid along the right minor fissure. No consolidation. No pneumothorax. Pleural spaces: See Lungs finding. Heart/Mediastinum: Stable cardiomediastinal silhouette. Bones/joints: Unremarkable. XR/XR chest 1V portable [id number] IMPRESSION: Imaging findings suggestive of mild pulmonary congestion. Pneumonia should be excluded clinically.
[2021-12-20 08:31] LABS: Basophils % 0.5 %; Eosinophils # 0.1 10^3/uL (0.0-0.8); Eosinophils % 2.2 %; Hemoglobin 11.6 g/dL (11.7-16.6); Lymphocytes # 1.2 10^3/uL (0.8-4.8); Lymphocytes % 18.1 %; Mean Corpuscular HGB Conc 31.4 g/dL (30.0-36.0); Mean Corpuscular Hemoglobin 30.9 pg (28.0-34.0); Mean Corpuscular Volume 98.4 fl (80-94); Mean Platelet Volume 11.2 fL (7.4-10.4); Monocytes # 1.2 10^3/uL (0.2-0.9); Monocytes % 17.8 %; Neutrophils # 3.98 10^3/uL (1.8-7.7); Neutrophils % 61.1 %; Nucleated Red Blood Cells % 0 %; Platelet Count 174 10^3/cmm (130-400); Red Blood Count 3.76 10^6/uL (4.1-5.3); Red Cell Distribution Width 16.2 % (12.1-15.1); White Blood Count 6.5 10^3/uL (4.0-10.0)
[2021-12-20 08:40] LABS: INR 0.99 (0.8-1.2)
[2021-12-20 08:48] LABS: Alanine Aminotransferase 27 U/L (0-41); Albumin Level 3.2 g/dL (3.5-5.2); Alkaline Phosphatase 103 U/L (40-130); Anion Gap 17.5 (5-19); Aspartate Amino Transferase 62 U/L (0-40); Blood Urea Nitrogen 23 mg/dL (8-23); Calcium 8.7 mg/dL (8.5-10.5); Carbon Dioxide 26 mmol/L (22-29); Chloride 102 mmol/L (98-107); Globulin 3.7 g/dL (1.3-4.6); Glomerular Filtration Rate 15.9 mL/min (90-130); Glucose 85 mg/dL (65-115); Osmolality Calculated 295 mOsm/kg (285-295); Potassium 4.5 mmol/L (3.5-5.1); Sodium 141 mmol/L (136-145); Total Bilirubin 0.4 mg/dL (0.15-1.2); Total Protein 6.9 g/dL (6.6-8.7)
[2021-12-20] MEDS: sodium chloride 0.9% 1,000 ML 30 ML IV (09:10)
[2021-12-20] MEDS: ceFAZolin 1,000 MG in sodium chloride 0.9% (plus) 50 ML 100 MG IV (09:33)
--- NOTE | 2021-12-20 09:46 | SC_ITS ---
WS: [id number] INTRAOPERATIVE TECHNIQUE: 3 Spot fluoroscopic images for intraoperative purposes. FLUOROSCOPY TIME: 7.2 seconds CLINICAL INFORMATION: surgery COMPARISON: None. FINDINGS: Dual lumen central venous catheter with tips in the distal SVC and RIGHT atrium. Subsegmental atelect asis RIGHT midlung. SC/C-arm FL for CVA [id number] IMPRESSION: Images obtained for intraoperative purposes.
[2021-12-20] MEDS: heparin 5,000 unit/mL INJ 1 mL 5000 UNIT INJECTION (10:27)
--- NOTE | 2021-12-20 10:59 | P.OP_ITS ---
Operative Report Date of procedure: December 20, 2021 Pre-op diagnosis: Preoperative diagnosis: ESRD Postoperative diagnosis: The same. Procedure: [Right] Internal Jugular Tunneled hemodialysis catheter placement under Ultrasound and fluoroscopic guidance, radiologic supervision and interpretation (CPTs: [id number], [id number], [id number]) Primary surgeon: Larry Do MD Assistant Commissioner: none EBL: 5 ml Anesthesia: lidocaine + MAC Specimen: none Implants: 27 cm HD catheter, split tip Complications: none Indications: Need for hemodialysis access The risks and benefits of the surgical procedure, including damage to surrounding tissue, hemothorax, pneumothorax, stenosis of the central vein, and venous thrombosis were discussed with the patient. DETAILS OF THE PROCEDURE The patient was identified in the holding area, brought to the operating room, and positioned supine on the operating room table. Sequential compression devices were applied to bilateral lower extremities to prevent deep venous thromboembolism. Subsequently, monitored anesthesia care was initiated without any complications. The surgical area was prepped and draped in a regular sterile fashion with chlorhexidine. TIME OUT: Immediately prior to procedure, time-out was performed, to include correct patient; agreement on the procedure to be performed, correct side, site, position; accurate procedure consent; relevant images; antibiotics; fluids; safety precautions; and availability of any special implants that might be required. Everybody agreed. Using the US [Right] IJ vein and carotid artery were identified; the vein was patent and compressible. The skin over the IJ vein was numbed with local ane sthetic. Under the US guidance with real time visualization of the needle entry and permanent recording of the images in the patient?s chart the IJ vein was punctured with an 18 gauge needle. Then the 0.035 J-wire was introduced, advanced and positioned in the right heart under fluoroscopic guidance. All the further manipulations with the wire, dilators and sheath were performed under fluoroscopic guidance. A 6 mm horizontal skin incision was made over the vein through the puncture site with 11 blade scalpel. An appropriate spot was identified on the chest wall and was numbed with local anesthetic. 5 mm skin incision was made and the dialysis catheter was tunneled from the chest wall incision to the neck incision. The calf of the catheter was positioned 1.5 cm from the chest insertion site. The serial dilators were used with subsequent placement of a peel-away sheath through the IJ vein over the 0.035 wire. The HD catheter was placed through the peel-away sheath which was subsequently removed. The tip of the catheter was located in the Right Atrium. Both ports were aspirated and flashed with heparinized saline and locked with heparin solution. The neck incision was closed with 4-0 Vicryl. Dermabond dressing was applied. The HD catheter was sutures to the skin with 2-0 nylon and transparent dressing was applied. All the counts were correct. The patient tolerated the procedure well and was transferred to recovery in stable condition.
--- NOTE | 2021-12-20 11:01 | XRR_ITS ---
PROCEDURE INFORMATION: Exam: XR Chest Exam date and time: 12/20/2021 11:18 AM Age: 66 years old Clinical indication: Device placement; Other: Tip of hd catheter; Prior surgery; Surgery date: Post-operative (0-2 days) TECHNIQUE: Imaging protocol: Radiologic exam of the chest. Views: 1 view. COMPARISON: CR (CHEST, ) 12/20/2021 8:22 AM FINDINGS: Tubes, catheters and devices: Right IJ approach tunneled dialysis catheter is in satisfactory position, with distal tip at the level of the SVC/RA junction. Monitoring devices project over the lower chest. Lungs: There is increased interstitial markings and small amount of fluid along the right major fissure, consistent with pulmonary congestion. No large pleural effusion or pneumothorax. No consolidation. Pleural spaces: See Lungs finding. Heart/Mediastinum: Stable cardiomediastinal silhouette. Bones/joints: Old healed fracture deformities of the right rib cage noted. XR/XR chest 1V portable [id number] IMPRESSION: 1. Mild pulmonary congestion. 2. Right IJ approach tunneled dialysis catheter in satisfactory position. No pneumothorax.
--- NOTE | 2021-12-20 11:11 | SUR.PHASEI ---
1056 PT TO PACU 5 PT AWAKE ALERT WITH GOOD RESP EFFORT NOTED VSS MONOR SR WITH NO ECTOPY, IV TO RT AC #20 PATENT WITH NS 600ML OFF AT THIS TIME ID BRACELET TO LT WRIST PT HAS RT SUBCLAVIAN AREA DIALYSIS CATHETER WITH OPS SITE TO COVER. PT ORIENTED X 3 TALKATIVE.
--- NOTE | 2021-12-20 11:19 | ANE.PACU2 ---
Inpatient post-anesthesia follow up: Airway intact: Yes Vital signs: Temperature 97.2 F Pulse Rate 18 Respiratory Rate 74 Blood Pressure 153/94 Pulse Oximetry 97 Oxygen Delivery Me thod Room Air Oxygen Flow Rate Fraction of Inspir ed Oxygen Hydration adequate: Yes Nausea and vomiting: No Pain level: 1 Mental status: Baseline
--- NOTE | 2021-12-20 11:54 | SUR.PHASEI ---
1134 PT VERY AWAKE ALERT TALKATIVE, DENIES PAIN PT TALKING ABOUT FOOD PT HUNGRY WANTS CHICKEN AND BEANS, PT REQUESTS SOMETHING TO DRINK, HOB AT 45 X RAYS DONE, DR MAS CALLED.
== END 2021-12-20 12:41 | disposition home or self-care (01) ==
LOC: ER 06:35 → OR 06:40
PROVIDERS: Emergency Provider Emergency Medicine; PCP Family Medicine Adult Medicine; Visit Provider Surgery
PROC: (CPT 36558; principal; 2021-12-20 08:00)
DX: T82.898A Other specified complication of vascular prosthetic devices, implants and grafts, initial encounter (principal); I13.2 Hypertensive heart and chronic kidney disease with heart failure and with stage 5 chronic kidney disease, or end stage renal disease; N18.6 End stage renal disease; I50.9 Heart failure, unspecified; I25.2 Old myocardial infarction; I27.20 Pulmonary hypertension, unspecified; J44.9 Chronic obstructive pulmonary disease, unspecified; E78.5 Hyperlipidemia, unspecified; G47.30 Sleep apnea, unspecified; D63.1 Anemia in chronic kidney disease; K74.60 Unspecified cirrhosis of liver; I42.0 Dilated cardiomyopathy; I35.1 Nonrheumatic aortic (valve) insufficiency; Z79.51 Long term (current) use of inhaled steroids; Z79.01 Long term (current) use of anticoagulants; Z87.891 Personal history of nicotine dependence; Z99.2 Dependence on renal dialysis; Y83.2 Surgical operation with anastomosis, bypass or graft as the cause of abnormal reaction of the patient, or of later complication, without mention of misadventure at the time of the procedure; T82.42XA Displacement of vascular dialysis catheter, initial encounter
CPT/HCPCS: 36558; 12345; 36415; 71045; 76000; 77001; 80053; 85025; 85610; 99283; C1769; J0690; J1644; J2370; J2704; J3010; J7030

== ENCOUNTER 2021-12-20 20:24 | Emergency (ER) | payer MEDICARE, SELFPAY ==
[2021-12-20 20:36] VITALS: BP 136/87; PULSE 84; RESP 18; TEMP 36.8; O2SAT 99; BMI 25.8
--- NOTE | 2021-12-20 20:40 | ED_ITS ---
HPI - Wound/Laceration General: Chief Complaint: General Medical Stated Complaint: BLEEDING AROUND PORT Time Seen by Provider: 12/20/21 20:31 History of Present Illness: 66-year-old male presents for a wound recheck. Patient was seen this morning when he accidentally pulled out his dialysis catheter in his right chest. Patient was sent to the OR this morning where it was replaced. Patient presents today because he was just concerned because there is some blood-tinged to the gauze under the dressing. Patient is on Coumadin was just anxious because he did not want to bleed out patient was discharged around noon today. Patient with no other complaints or concerns Associated symptoms: Denies chills, fever(s), nausea or vomiting Review of Systems Const: Denies: fever(s) or chills Card: Denies: chest pain or palpitations Resp: Denies: dyspnea or productive cough GI: Denies: abdominal pain, nausea or vomiting : Denies: flank pain or difficulty urinating Musc: Reports: other (No complaints report) Skin/Breast: Reports: other (Please see HPI) Neuro: Denies: headache(s) or dizziness PFSH ED PFSH: Medical History Anemia in chronic kidney disease (CKD) BPH NOS w ur obs/LUTS Cellulitis Chest pain CHF exacerbation Combined D/S CHF CHF exacerbation CKD (chronic kidney disease) stage 4, GFR 15-29 ml/min COPD exacerbation Elevated PSA End stage renal disease Erectile dysfunction Gout attack History of pulmonary embolism Hyperkalemia Hyperlipidemia Hypersomnolence Hypertension, essential Hypoalbuminemia Insomnia Leukocytosis Mild aortic regurgitation Mild aortic stenosis 12/07/2018: Mean gradient 4.6 mmHg, aortic valve area 2.2 cm? Moderate pulmonary arterial systolic hypertension NSTEMI (non-ST elevated myocardial infarction) Obstructive sleep apnea Smoking Quit 2020 Stasis dermatitis of lower extremity due to chronic peripheral vascular hypertension Tear of left rotator cuff Surgical History H/O abdominal surgery hernia History of ankle surgery History of back surgery Postoperative state Family History Family/Other Cancer Mother Dementia Diabetes Sister Diabetes CAD (coronary artery disease) Father , AT AGE 78 Brain aneurysm Denies family history of Clotting disorder Hyperlipidemia Psychiatric illness Chronic kidney disease (CKD) Suicide Anesthesia complication Bleeding disorder Family history of premature coronary artery disease Lung disease Hypertension Stroke Social History Smoking and tobacco status: former smoker Quit status (tobacco): has quit using tobacco Year quit tobacco: 2020 Former quit date comment: 0.5 ppd X 15 years Alcohol intake: former Marital status: Current occupational status: disabled History of recent travel: No Physical Exam Const: COMMON NORMALS: no acute distress, patient oriented x3 and alert Resp: COMMON NORMALS: normal respiratory effort, No use of accessory muscles and clear to auscultation bilaterally AUSCULTATION: clear to auscultation bilaterally Cardio: COMMON NORMALS: regular rate and regular rhythm RATE: regular rate RHYTHM: regular rhythm Extremity: COMMON NORMALS: normal to inspection and full ROM Neuro: COMMON NORMALS: patient oriented x3, CN's II-XII intact bilaterally and no focal motor deficits SENSORIUM/ORIENTATION: Yes alert Psych: COMMON NORMALS: mental status grossly normal, cooperative and speech normal SPEECH: Yes normal speech Skin: NARRATIVE SKIN EXAM: Patient dialysis catheter with some minimal blood noted on gauze. No active bleeding noted. Course Vital Signs: Vital signs: Vital Signs Temperature 98.3 F 12/20/21 20:36 Pulse Rate 84 12/20/21 20:36 Respiratory Rate 18 12/20/21 20:36 Blood Pressure 136/87 12/20/21 20:36 Pulse Oximetry 99 12/20/21 20:36 Oxygen Delivery Me thod 12/20/21 20:36 MDM - Wound/Laceration Medical Decision Making Patient's dressing shows no signs of any further bleeding or active bleeding. Patient having some mild pain and was requesting pain medicines I will give him 1 hydrocodone here in the ER. Patient stable and discharged home Discharge Plan Discharge Patient Disposition: Home Clinical Impression: Encounter for wound re-check, Complications, mechanical, catheter, dialysis Condition: Stable Prescriptions: No Action sertraline 25 mg tablet 25 mg PO DAILY Qty: 30 5RF triamcinolone acetonide 0.5 % cream 1 applic topical DAILY Qty: 15 0RF Combivent Respimat 20-100 mcg/actuation mist 1 puff inhalation Q4H PRN (Reason: wheezing) 30 Days Qty: 4 4RF fluticasone propionate [Flonase Allergy Relief] 50 mcg/actuation spray,suspension 1 spray intranasal BID 30 Days Qty: 16 4RF Rx Instructions: administer into each nostril (DME) Cane See Rx Instructions .Route .MEDSUPPLY Qty: 1 0RF Rx Instructions: As directed hydralazine 50 mg tablet 50 mg PO TID Qty: 90 4RF albuterol sulfate 2.5 mg /3 mL (0.083 %) Solution For Nebulization 2.5 mg INHALATION QID PRN (Reason: Shortness Of Breath) nitroglycerin [Nitrostat] 0.4 mg tablet, sublingual 0.4 mg SUBLINGUAL Q5M PRN (Reason: Chest Pain) 30 Days Qty: 30 0RF albuterol sulfate [ProAir HFA] 90 mcg/actuation HFA aerosol inhaler 2 puff INHALATION Q6H PRN (Reason: Shortness Of Breath) trazodone 50 mg tablet 25 mg PO BEDTIME carvedilol 25 mg tablet 25 mg PO BID 30 Days Qty: 90 0RF Rx Instructions: must administer with a meal/food Discharge Orders: Discharge ED (Routine); Ordered 12/20/21 Ordered By: Cyrus Frederick Referrals: Kian Colon MD [Primary Care Provider] - Discharge Diet: Usual diet Discharge Activity: Limit activity as instructed Patient Instructions: Opioid Safety, Pain Management Activity Restrictions/Additional Instructions: Please follow activity limit that were discussed with you at discharge from your surgery today. Follow-up with your primary care provider as needed Coding Level of Care Code ED Building Services Engineer for Chg 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
[2021-12-20] MEDS: HYDROcodone-acetaminophen 5-325 mg Tablet 1 TAB PO (21:34)
[2021-12-20 21:35] VITALS: BP 132/81; PULSE 85; RESP 16; O2SAT 100
== END 2021-12-20 21:40 | disposition home or self-care (01) ==
PROVIDERS: Emergency Provider Student in an Organized Health Care Education/Training Program; PCP Family Medicine Adult Medicine
DX: T82.42XA Displacement of vascular dialysis catheter, initial encounter (principal); Z87.891 Personal history of nicotine dependence; I13.2 Hypertensive heart and chronic kidney disease with heart failure and with stage 5 chronic kidney disease, or end stage renal disease; I50.9 Heart failure, unspecified; Z99.2 Dependence on renal dialysis; N18.6 End stage renal disease; E78.5 Hyperlipidemia, unspecified; I25.2 Old myocardial infarction
CPT/HCPCS: 99283

== ENCOUNTER → 2022-01-01 09:55 | Outpatient (BNVA) | payer MEDICARE, SELFPAY | PROVIDERS: PCP Family Medicine Adult Medicine; Visit Provider Internal Medicine | DX: I42.0 Dilated cardiomyopathy (principal); I13.0 Hypertensive heart and chronic kidney disease with heart failure and stage 1 through stage 4 chronic kidney disease, or unspecified chronic kidney disease; N18.4 Chronic kidney disease, stage 4 (severe); I50.40 Unspecified combined systolic (congestive) and diastolic (congestive) heart failure; Z99.2 Dependence on renal dialysis; Z87.891 Personal history of nicotine dependence | CPT/HCPCS: 99214 ==

== ENCOUNTER 2022-01-12 04:30 | Emergency (ER) | payer MEDICARE, SELFPAY ==
[2022-01-12 04:31] VITALS: BP 187/116; PULSE 96; RESP 16; TEMP 36.6; O2SAT 97; BMI 25.8
--- NOTE | 2022-01-12 04:32 | ED_ITS ---
Documented by User: Ander Carrera MD 01/20/22 21:41 HPI - General Adult General: Chief complaint: General Medical Stated complaint: Dialysis Port Pain Time Seen by Provider: 01/12/22 04:31 History of Present Illness: Mr. Hammonds is a 66-year-old gentleman with complex past medical history including end-stage renal disease on hemodialysis who presents to the emergency department due to concern for increased pain at his port site and high blood pressure. He has noticed increased drainage including brown drainage for the past month however this is worsened and now associated with pain for the past 3 days. Associated generalized malaise and nausea though no fevers or chills. Symptoms are worse with palpation and movement. He reports having a fistula placed though this has not matured enough for use. He has a HD catheter temporarily which was replaced after being pulled out on 12/20. He dialyzes Tuesday, , Tuesday and reports compliance. Onset (ago): day(s) Severity: moderate Relieving factors: none Exacerbating factors: movement and other Review of Systems General: Reports: 10 or more systems reviewed and unremarkable except in HPI and below PFSH ED PFSH: Medical History Anemia in chronic kidney disease (CKD) BPH NOS w ur obs/LUTS Cellulitis Chest pain CHF exacerbation Combined D/S CHF CHF exacerbation CKD (chronic kidney disease) stage 4, GFR 15-29 ml/min COPD exacerbation Elevated PSA End stage renal disease Erectile dysfunction Gout attack History of pulmonary embolism Hyperkalemia Hyperlipidemia Hypersomnolence Hypertension, essential Hypoalbuminemia Insomnia Leukocytosis Mild aortic regurgitation Mild aortic stenosis 12/07/2018: Mean gradient 4.6 mmHg, aortic valve area 2.2 cm? Moderate pulmonary arterial systolic hypertension NSTEMI (non-ST elevated myocardial infarction) Obstructive sleep apnea Smoking Quit 2020 Stasis dermatitis of lower extremity due to chronic peripheral vascular hypertension Tear of left rotator cuff Surgical History H/O abdominal surgery hernia History of ankle surgery History of back surgery Postoperative state Family History Family/Other Cancer Mother Dementia Diabetes Sister Diabetes CAD (coronary artery disease) Father , AT AGE 78 Brain aneurysm Denies family history of Clotting disorder Hyperlipidemia Psychiatric illness Chronic kidney disease (CKD) Suicide Anesthesia complication Bleeding disorder Family history of premature coronary artery disease Lung disease Hypertension Stroke Social History Smoking and tobacco status: former smoker Quit status (tobacco): has quit using tobacco Year quit tobacco: 2020 Former quit date comment: 0.5 ppd X 15 years Alcohol intake: former Marital status: Current occupational status: disabled History of recent travel: No Physical Exam Const: COMMON NORMALS: alert GENERAL APPEARANCE: cooperative and well developed HENMT: COMMON NORMALS: normocephalic and atraumatic HEAD & SCALP: normocephalic and atraumatic Eye: COMMON NORMALS: conjunctivae normal CONJUNCTIVA: Yes conjunctivae normal SCLERA: sclerae normal Neck/C-Spine: COMMON NORMALS: supple GENERAL: Yes trachea midline Chest: OTHER: soft tissue swelling about the catheter/chest wall without evidence of hemorrhage Resp: COMMON NORMALS: clear to auscultation bilaterally EFFORT & INSPECTION: Yes able to speak in complete sentences AUSCULTATION: clear to auscultation bilaterally Cardio: COMMON NORMALS: regular rate and regular rhythm RATE: regular rate RHYTHM: regular rhythm GI: COMMON NORMALS: Soft to palpation PALPATION: Yes Soft to palpation and No Tenderness to palpation present (GI) Extremity: GENERAL: Yes normal exam except as noted and No edema Neuro: COMMON NORMALS: moves all extremities SENSORIUM/ORIENTATION: Yes alert and No Orientation impaired Psych: COMMON NORMALS: mental status grossly normal and Normal thought process present THOUGHT PROCESS: Normal thought process present Course Vital Signs: Vital signs: Vital Signs Temperature 97.9 F 01/12/22 04:31 Pulse Rate 100 01/12/22 09:19 Respiratory Rate 18 01/12/22 09:19 Blood Pressure 157/100 01/12/22 09:19 Pulse Oximetry 93 01/12/22 09:19 Oxygen Delivery Me thod 01/12/22 07:24 [facility] - General Adult Medical Decision Making 66-year-old gentleman with complex past medical history presenting due to concern regarding dialysis catheter. Clinically concerning however laboratory studies are largely unremarkable. Handed off to Dr. Michelle pending reassessment and ultrasound report. Care assumed at change of shift. Patient is hypokalemic given Kayexalate and calcium chloride. Ultrasound and white count are essentially normal no signs of infection at this time he does have little serous leg drainage but is not purulent. Will discharge patient home to dialysis for his regular treatment this morning follow-up with nephrology. Lab Data : 01/12/22 05:15 01/12/22 04:55 Radiology Impressions Chest X-Ray 01/12/22 04:44 IMPRESSION: 1. Unchanged right internal jugular tunneled hemodialysis catheter, as noted above. 2. No confluent infiltrates in the lungs. Soft Tissue Ultrasound 01/12/22 04:47 IMPRESSION: Negative ultrasound in the region of the Port-A-Cath. Laboratory Results WBC 9.5 10^3/uL (4.0-10.0) 01/12/22 05:15 Corrected WBC Cancelled 01/12/22 04:55 RBC 3.91 10^6/uL (4.1-5.3) L 01/12/22 05:15 Hgb 12.6 g/dL (11.7-16.6) 01/12/22 05:15 Hct 39.7 % (42.0-52.0) L 01/12/22 05:15 MCV 101.5 fl (80-94) H 01/12/22 05:15 MCH 32.2 pg (28.0-34.0) 01/12/22 05:15 MCHC 31.7 g/dL (30.0-36.0) 01/12/22 05:15 RDW 16.5 % (12.1-15.1) H 01/12/22 05:15 Plt Count 168 10^3/cmm (130-400) 01/12/22 05:15 MPV 11.3 fL (7.4-10.4) H 01/12/22 05:15 Gran % Cancelled 01/12/22 04:55 Neut % (Auto) 79.5 % 01/12/22 05:15 Lymph % (Auto) 10.2 % 01/12/22 05:15 [place] % (Auto) 6.3 % 01/12/22 05:15 Eos % (Auto) 3.1 % 01/12/22 05:15 Baso % (Auto) 0.6 % 01/12/22 05:15 Neut # (Auto) 7.55 10^3/uL (1.8-7.7) 01/12/22 05:15 Lymph # (Auto) 1.0 10^3/uL (0.8-4.8) 01/12/22 05:15 [place] # (Auto) 0.6 10^3/uL (0.2-0.9) 01/12/22 05:15 Eos # (Auto) 0.3 10^3/uL (0.0-0.8) 01/12/22 05:15 Baso # (Auto) 0.1 10^3/uL (0.0-0.1) 01/12/22 05:15 Absolute Gran (auto) Cancelled 01/12/22 04:55 Nucleated RBC % (auto) 0 % 01/12/22 05:15 Nucleated RBCs # 0.0 /100WBC 01/12/22 05:15 ESR 21 mm/hr (0-10) H 01/12/22 05:15 Sodium 138 mmol/L (136-145) 01/12/22 04:55 Potassium 5.8 mmol/L (3.5-5.1) H 01/12/22 04:55 Chloride 103 mmol/L (98-107) 01/12/22 04:55 Carbon Dioxide 23 mmol/L (22-29) 01/12/22 04:55 Anion Gap 17.8 (5-19) 01/12/22 04:55 BUN 39 mg/dL (8-23) H 01/12/22 04:55 Creatinine 7.2 mg/dL (0.7-1.2) H* 01/12/22 04:55 GFR Calculation 9.3 mL/min (90-130) L 01/12/22 04:55 Glucose 101 mg/dL (65-115) 01/12/22 04:55 Calculated Osmolality 296 mOsm/kg (285-295) H 01/12/22 04:55 Calcium 8.6 mg/dL (8.5-10.5) 01/12/22 04:55 Total Bilirubin 0.3 mg/dL (0.15-1.2) 01/12/22 04:55 AST 46 U/L (0-40) H 01/12/22 04:55 ALT 23 U/L (0-41) 01/12/22 04:55 Alkaline Phosphatase 107 U/L (40-130) 01/12/22 04:55 C-Reactive Protein 3.0 mg/L (0.0-4.9) 01/12/22 04:55 NT-Pro-B Natriuret Pep 23241 pg/mL (0-125) H 01/12/22 04:55 Total Protein 7.5 g/dL (6.6-8.7) 01/12/22 04:55 Albumin 3.6 g/dL (3.5-5.2) 01/12/22 04:55 Globulin 3.9 g/dL (1.3-4.6) 01/12/22 04:55 Discharge Plan Discharge Patient Disposition: Home Clinical Impression: ESRD (end stage renal disease) Condition: Stable Prescriptions: No Action sertraline 25 mg tablet 25 mg PO DAILY Qty: 30 5RF triamcinolone acetonide 0.5 % cream 1 applic topical DAILY Qty: 15 0RF hydralazine 50 mg tablet 75 mg PO TID Qty: 405 3RF Combivent Respimat 20-100 mcg/actuation mist 1 puff inhalation Q4H PRN (Reason: wheezing) 30 Days Qty: 4 4RF fluticasone propionate [Flonase Allergy Relief] 50 mcg/actuation spray,suspension 1 spray intranasal BID 30 Days Qty: 16 4RF Rx Instructions: administer into each nostril (DME) Cane See Rx Instructions .Route .MEDSUPPLY Qty: 1 0RF Rx Instructions: As directed albuterol sulfate 2.5 mg /3 mL (0.083 %) Solution For Nebulization 2.5 mg INHALATION QID PRN (Reason: Shortness Of Breath) nitroglycerin [Nitrostat] 0.4 mg tablet, sublingual 0.4 mg SUBLINGUAL Q5M PRN (Reason: Chest Pain) 30 Days Qty: 30 0RF albuterol sulfate [ProAir HFA] 90 mcg/actuation HFA aerosol inhaler 2 puff INHALATION Q6H PRN (Reason: Shortness Of Breath) trazodone 50 mg tablet 25 mg PO BEDTIME carvedilol 25 mg tablet 25 mg PO BID 30 Days Qty: 90 0RF Rx Instructions: must administer with a meal/food Discharge Orders: Discharge ED (Routine); Ordered 01/12/22 Ordered By: Jessee Michelle Referrals: Kian Colon MD [Primary Care Provider] - Discharge Diet: Usual diet Discharge Activity: Increase activity as tolerated Patient Instructions: Opioid Safety, Pain Management Activity Restrictions/Additional Instructions: Proceed directly to dialysis clinic for your usual treatment. Sign Out Sign Out Data: Patient Sign Out occurred on 01/12/22 at 06:06. Patient's care was discussed, and care was transferred from to Jessee Michelle DO. Coding Level of Care Code ED Account Services Representative for Chg Fwd Documented by User: Jessee Michelle DO 01/12/22 08:18 HPI - General Adult General: Chief complaint: General Medical Stated complaint: Dialysis Port Pain Time Seen by Provider: 01/12/22 04:31 PFSH ED PFSH: Medical History Anemia in chronic kidney disease (CKD) BPH NOS w ur obs/LUTS Cellulitis Chest pain CHF exacerbation Combined D/S CHF CHF exacerbation CKD (chronic kidney disease) stage 4, GFR 15-29 ml/min COPD exacerbation Elevated PSA End stage renal disease Erectile dysfunction Gout attack History of pulmonary embolism Hyperkalemia Hyperlipidemia Hypersomnolence Hypertension, essential Hypoalbuminemia Insomnia Leukocytosis Mild aortic regurgitation Mild aortic stenosis 12/07/2018: Mean gradient 4.6 mmHg, aortic valve area 2.2 cm? Moderate pulmonary arterial systolic hypertension NSTEMI (non-ST elevated myocardial infarction) Obstructive sleep apnea Smoking Quit 2020 Stasis dermatitis of lower extremity due to chronic peripheral vascular hy pertension Tear of left rotator cuff Surgical History H/O abdominal surgery hernia History of ankle surgery History of back surgery Postoperative state Family History Family/Other Cancer Mother Dementia Diabetes Sister Diabetes CAD (coronary artery disease) Father , AT AGE 78 Brain aneurysm Denies family history of Clotting disorder Hyperlipidemia Psychiatric illness Chronic kidney disease (CKD) Suicide Anesthesia complication Bleeding disorder Family history of premature coronary artery disease Lung disease Hypertension Stroke Social History Smoking and tobacco status: former smoker Quit status (tobacco): has quit using tobacco Year quit tobacco: 2020 Former quit date comment: 0.5 ppd X 15 years Alcohol intake: former Marital status: Current occupational status: disabled History of recent travel: No Course Vital Signs: Vital signs: Vital Signs Temperature 97.9 F 01/12/22 04:31 Pulse Rate 100 01/12/22 09:19 Respiratory Rate 18 01/12/22 09:19 Blood Pressure 157/100 01/12/22 09:19 Pulse Oximetry 93 01/12/22 09:19 Oxygen Delivery Me thod 01/12/22 07:24 MDM - General Adult Medical Decision Making Care assumed at change of shift. Patient is hypokalemic given Kayexalate and calcium chloride. Ultrasound and white count are essentially normal no signs of infection at this time he does have little serous leg drainage but is not purulent. Will discharge patient home to dialysis for his regular treatment this morning follow-up with nephrology. Medical Records I reviewed the patient's medical records. Lab Data I reviewed the patient's lab results. : 01/12/22 05:15 01/12/22 04:55 Radiology Impressions Chest X-Ray 01/12/22 04:44 IMPRESSION: 1. Unchanged right internal jugular tunneled hemodialysis catheter, as noted above. 2. No confluent infiltrates in the lungs. Soft Tissue Ultrasound 01/12/22 04:47 IMPRESSION: Negative ultrasound in the region of the Port-A-Cath. Laboratory Results WBC 9.5 10^3/uL (4.0-10.0) 01/12/22 05:15 Corrected WBC Cancelled 01/12/22 04:55 RBC 3.91 10^6/uL (4.1-5.3) L 01/12/22 05:15 Hgb 12.6 g/dL (11.7-16.6) 01/12/22 05:15 Hct 39.7 % (42.0-52.0) L 01/12/22 05:15 MCV 101.5 fl (80-94) H 01/12/22 05:15 MCH 32.2 pg (28.0-34.0) 01/12/22 05:15 MCHC 31.7 g/dL (30.0-36.0) 01/12/22 05:15 RDW 16.5 % (12.1-15.1) H 01/12/22 05:15 Plt Count 168 10^3/cmm (130-400) 01/12/22 05:15 MPV 11.3 fL (7.4-10.4) H 01/12/22 05:15 Gran % Cancelled 01/12/22 04:55 Neut % (Auto) 79.5 % 01/12/22 05:15 Lymph % (Auto) 10.2 % 01/12/22 05:15 [place] % (Auto) 6.3 % 01/12/22 05:15 Eos % (Auto) 3.1 % 01/12/22 05:15 Baso % (Auto) 0.6 % 01/12/22 05:15 Neut # (Auto) 7.55 10^3/uL (1.8-7.7) 01/12/22 05:15 Lymph # (Auto) 1.0 10^3/uL (0.8-4.8) 01/12/22 05:15 [place] # (Auto) 0.6 10^3/uL (0.2-0.9) 01/12/22 05:15 Eos # (Auto) 0.3 10^3/uL (0.0-0.8) 01/12/22 05:15 Baso # (Auto) 0.1 10^3/uL (0.0-0.1) 01/12/22 05:15 Absolute Gran (auto) Cancelled 01/12/22 04:55 Nucleated RBC % (auto) 0 % 01/12/22 05:15 Nucleated RBCs # 0.0 /100WBC 01/12/22 05:15 ESR 21 mm/hr (0-10) H 01/12/22 05:15 Sodium 138 mmol/L (136-145) 01/12/22 04:55 Potassium 5.8 mmol/L (3.5-5.1) H 01/12/22 04:55 Chloride 103 mmol/L (98-107) 01/12/22 04:55 Carbon Dioxide 23 mmol/L (22-29) 01/12/22 04:55 Anion Gap 17.8 (5-19) 01/12/22 04:55 BUN 39 mg/dL (8-23) H 01/12/22 04:55 Creatinine 7.2 mg/dL (0.7-1.2) H* 01/12/22 04:55 GFR Calculation 9.3 mL/min (90-130) L 01/12/22 04:55 Glucose 101 mg/dL (65-115) 01/12/22 04:55 Calculated Osmolality 296 mOsm/kg (285-295) H 01/12/22 04:55 Calcium 8.6 mg/dL (8.5-10.5) 01/12/22 04:55 Total Bilirubin 0.3 mg/dL (0.15-1.2) 01/12/22 04:55 AST 46 U/L (0-40) H 01/12/22 04:55 ALT 23 U/L (0-41) 01/12/22 04:55 Alkaline Phosphatase 107 U/L (40-130) 01/12/22 04:55 C-Reactive Protein 3.0 mg/L (0.0-4.9) 01/12/22 04:55 NT-Pro-B Natriuret Pep 95224 pg/mL (0-125) H 01/12/22 04:55 Total Protein 7.5 g/dL (6.6-8.7) 01/12/22 04:55 Albumin 3.6 g/dL (3.5-5.2) 01/12/22 04:55 Globulin 3.9 g/dL (1.3-4.6) 01/12/22 04:55 Discharge Plan Discharge Patient Disposition: Home Clinical Impression: ESRD (end stage renal disease) Condition: Stable Prescriptions: No Action sertraline 25 mg tablet 25 mg PO DAILY Qty: 30 5RF triamcinolone acetonide 0.5 % cream 1 applic topical DAILY Qty: 15 0RF hydralazine 50 mg tablet 75 mg PO TID Qty: 405 3RF Combivent Respimat 20-100 mcg/actuation mist 1 puff inhalation Q4H PRN (Reason: wheezing) 30 Days Qty: 4 4RF fluticasone propionate [Flonase Allergy Relief] 50 mcg/actuation spray,suspension 1 spray intranasal BID 30 Days Qty: 16 4RF Rx Instructions: administer into each nostril (DME) Cane See Rx Instructions .Route .MEDSUPPLY Qty: 1 0RF Rx Instructions: As directed albuterol sulfate 2.5 mg /3 mL (0.083 %) Solution For Nebulization 2.5 mg INHALATION QID PRN (Reason: Shortness Of Breath) nitroglycerin [Nitrostat] 0.4 mg tablet, sublingual 0.4 mg SUBLINGUAL Q5M PRN (Reason: Chest Pain) 30 Days Qty: 30 0RF albuterol sulfate [ProAir HFA] 90 mcg/actuation HFA aerosol inhaler 2 puff INHALATION Q6H PRN (Reason: Shortness Of Breath) trazodone 50 mg tablet 25 mg PO BEDTIME carvedilol 25 mg tablet 25 mg PO BID 30 Days Qty: 90 0RF Rx Instructions: must administer with a meal/food Discharge Orders: Discharge ED (Routine); Ordered 01/12/22 Ordered By: Jessee Michelle Referrals: Kian Colon MD [Primary Care Provider] - Discharge Diet: Usual diet Discharge Activity: Increase activity as tolerated Patient Instructions: Opioid Safety, Pain Management Activity Restrictions/Additional Instructions: Proceed directly to dialysis clinic for your usual treatment. Sign Out Sign Out Data: Patient Sign Out occurred on 01/12/22 at 06:06. Patient's care was discussed, and care was transferred from to Jessee Michelle DO. Coding Level of Care Code ED Account Services Representative for Ramana Pillai
--- NOTE | 2022-01-12 04:44 | XRR_ITS ---
PROCEDURE INFORMATION: Exam: XR Chest Exam date and time: 01/12/2022 4:53 AM Age: 66 years old Clinical indication: Other: Port infection. Prior surgery; Patient HX: Infection at insertion point of dialysis cath. ; Additional info: Tunneled line infection TECHNIQUE: Imaging protocol: Radiologic exam of the chest. Views: 1 view. COMPARISON: CR XR chest 1V portable [id number] 12/20/2021 11:18 AM FINDINGS: Tubes, catheters and devices: Unchanged right internal jugular tunneled hemodialysis catheter is seen. The tips overlie the mid right atrium. Lungs: There are normal lung volumes. There are no interstitial or airspace opacities in the lungs. Unchanged linear scarring/chronic atelectasis is seen in the right mid lung zone. Pleural spaces: No pleural effusion. No pneumothorax. Heart/Mediastinum: The heart size is normal. There is a mildly tortuous thoracic aorta. The trachea is midline. Bones/joints: No acute osseous abnormalities seen. Other findings: Multiple radiopaque densities are seen overlying the mid chest. XR/XR chest 1V portable [id number] IMPRESSION: 1. Unchanged right internal jugular tunneled hemodialysis catheter, as noted above. 2. No confluent infiltrates in the lungs.
--- NOTE | 2022-01-12 04:47 | US_ITS ---
WS: [id number] ULTRASOUND SOFT TISSUES RIGHT chest wall. HISTORY: swelling around HD port chest wall, eval abscess COMPARISON: None available. TECHNIQUE: 2-D and color Doppler imaging is submitted. Ultrasound directed to the anterior RIGHT chest wall near the area of the Port-A-Cath. There is no ab scess identified. No edema or soft tissue thickening. No fluid. US/US soft tissue/extremity [id number] IMPRESSION: Negative ultrasound in the region of the Port-A-Cath.
[2022-01-12] MEDS: morphine 4 mg/mL SDV 1 mL IVP (05:19)
[2022-01-12 05:29] LABS: Alanine Aminotransferase 23 U/L (0-41); Albumin Level 3.6 g/dL (3.5-5.2); Alkaline Phosphatase 107 U/L (40-130); Calcium 8.6 mg/dL (8.5-10.5); Carbon Dioxide 23 mmol/L (22-29); Globulin 3.9 g/dL (1.3-4.6); Glucose 101 mg/dL (65-115); Total Bilirubin 0.3 mg/dL (0.15-1.2); Total Protein 7.5 g/dL (6.6-8.7)
[2022-01-12 05:32] LABS: Basophils # 0.1 10^3/uL (0.0-0.1); Basophils % 0.6 %; Eosinophils # 0.3 10^3/uL (0.0-0.8); Eosinophils % 3.1 %; Erythrocyte Sedimentation Rate 21 mm/hr (0-10); Hematocrit 39.7 % (42.0-52.0); Hemoglobin 12.6 g/dL (11.7-16.6); Lymphocytes % 10.2 %; Mean Corpuscular HGB Conc 31.7 g/dL (30.0-36.0); Mean Corpuscular Hemoglobin 32.2 pg (28.0-34.0); Mean Corpuscular Volume 101.5 fl (80-94); Mean Platelet Volume 11.3 fL (7.4-10.4); Monocytes # 0.6 10^3/uL (0.2-0.9); Monocytes % 6.3 %; Neutrophils # 7.55 10^3/uL (1.8-7.7); Neutrophils % 79.5 %; Nucleated Red Blood Cells % 0 %; Platelet Count 168 10^3/cmm (130-400); Red Blood Count 3.91 10^6/uL (4.1-5.3); Red Cell Distribution Width 16.5 % (12.1-15.1); White Blood Count 9.5 10^3/uL (4.0-10.0)
[2022-01-12 05:39] VITALS: BP 181/116; PULSE 93; RESP 14; O2SAT 100
[2022-01-12 05:51] LABS: Aspartate Amino Transferase 46 U/L (0-40)
--- NOTE | 2022-01-12 05:56 | ECG_ITS ---
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 Measurements Intervals Rainbow Rate: 119 P: 24 NM: 140 QRS: -62 QRSD: 104 T: 97 QT: 298 QTc: 420 Interpretive Statements SINUS TACHYCARDIA PATTERN CONSISTENT WITH PULMONARY DISEASE LEFT ANTERIOR FASCICULAR BLOCK [QRS AXIS <= -45, QR IN I, RS IN II] POSSIBLE LEFT VENTRICULAR HYPERTROPHY [VOLTAGE CRITERIA PLUS LAE OR QRS WIDENING] ST DEVIATION AND MODERATE T-WAVE ABNORMALITY, CONSIDER LATERAL ISCHEMIA [-0.1+ mV T-WAVE IN I/aVL/V5/V6] Compared to ECG 10/10/2021 17:22:46 Left anterior fascicular block now present T-wave abnormality now present Left-axis deviation no longer present Incomplete right bundle-branch block no longer present ST (T wave) deviation no longer present Myocardial infarct finding no longer present Electronically Signed On 01-13-2022 8:28:44 CDT by Ben Rincon M.D. [email or web address]
[2022-01-12 06:05] LABS: Chloride 103 mmol/L (98-107); NT Pro B Type Natriuretic Pept 28220 pg/mL (0-125); Sodium 138 mmol/L (136-145)
[2022-01-12 06:06] LABS: Blood Urea Nitrogen 39 mg/dL (8-23); Glomerular Filtration Rate 9.3 mL/min (90-130); Osmolality Calculated 296 mOsm/kg (285-295)
[2022-01-12 06:07] LABS: Anion Gap 17.8 (5-19); Potassium 5.8 mmol/L (3.5-5.1)
[2022-01-12] MEDS: ondansetron 2 mg/ML SDV 2 mL 4 MG IVP (06:19)
[2022-01-12 07:24] VITALS: BP 151/97; PULSE 111; RESP 20; O2SAT 95
--- NOTE | 2022-01-12 07:26 | PC.NURSE ---
Report from SANDRA Dailey. Patient assisted with urinal and given sips of water. No other needs at this time
[2022-01-12] MEDS: sodium chloride 0.9% 100 mL Bag XX (08:26)
[2022-01-12] MEDS: calcium chloride 10% Syr 10 mL 1 GM IVP (08:26)
[2022-01-12] MEDS: sodium polystyrene sulfonate 15 gm/60 mL Btl PO (08:26)
[2022-01-12 08:31] VITALS: BP 164/101; PULSE 104; RESP 19
[2022-01-12 09:19] VITALS: BP 157/100; PULSE 100; RESP 18; O2SAT 93
[2022-01-12 17:40] LABS: Bacillus cereus group Not Detected (NOT DETECT); Bacillus subtillis group Not Detected (NOT DETECT); Corynebacterium Not Detected (NOT DETECT); Cutibacterium acnes (P.acnes) Not Detected (NOT DETECT); Enterococcus Not Detected (NOT DETECT); Enterococcus faecalis Not Detected (NOT DETECT); Enterococcus faecium Not Detected (NOT DETECT); Lactobacillus species Not Detected (NOT DETECT); Listeria Not Detected (NOT DETECT); Listeria monocytogenes Not Detected (NOT DETECT); Micrococcus Not Detected (NOT DETECT); Pan Candida Not Detected (NOT DETECT); Pan Gram-Negative Not Detected (NOT DETECT); Staphylococcus epidermidis Not Detected (NOT DETECT); Staphylococcus lugdunensis Not Detected (NOT DETECT); Staphylococcus species Detected (NOT DETECT); Streptococcus agalactiae Not Detected (NOT DETECT); Streptococcus anginosus group Not Detected (NOT DETECT); Streptococcus pneumoniae Not Detected (NOT DETECT); Streptococcus pyogenes Not Detected (NOT DETECT); Streptococcus species Not Detected (NOT DETECT); mecA Not Detected (NOT DETECT); mecC Not Detected (NOT DETECT)
== END 2022-01-12 09:22 | disposition home or self-care (01) ==
PROVIDERS: Emergency Medicine; Emergency Provider Family Medicine; PCP Family Medicine Adult Medicine
DX: I13.2 Hypertensive heart and chronic kidney disease with heart failure and with stage 5 chronic kidney disease, or end stage renal disease (principal); N18.6 End stage renal disease; I50.9 Heart failure, unspecified; Z99.2 Dependence on renal dialysis; J44.9 Chronic obstructive pulmonary disease, unspecified; E78.5 Hyperlipidemia, unspecified; I25.2 Old myocardial infarction; Z87.891 Personal history of nicotine dependence
CPT/HCPCS: 71045; 76882; 80053; 83880; 85025; 85651; 86140; 87040; 87070; 87075; 87077; 87186; 87205; 93005; 96374; 96375; 99285; J2270; J2405; J3490

== ENCOUNTER 2022-01-14 08:29 | Emergency (ER) | payer MEDICARE, SELFPAY ==
--- NOTE | 2022-01-14 08:34 | XRR_ITS ---
PROCEDURE INFORMATION: Exam: XR Chest Exam date and time: 01/14/2022 8:42 AM Age: 66 years old Clinical indication: Cough and dyspnea; Prior surgery; Patient HX: Chest pain 2-3 days. Has a port for dialysis on RT side of chest that looks infected. Its oozing yellow discharge; Additional info: Dyspnea/cough TECHNIQUE: Imaging protocol: Radiologic exam of the chest. Views: 1 view. COMPARISON: CR (CHEST, ) 01/12/2022 4:53 AM FINDINGS: Tubes, catheters and devices: Right internal jugular tunneled dialysis catheter is seen with tips overlying the cavoatrial junction. Lungs: Normal lung volumes. Age-related interstitial prominence is seen in the lungs. Linear scarring is seen in the right mid hemithorax. No interstitial or airspace opacities. Pleural spaces: No pleural effusion. No pneumothorax. Heart/Mediastinum: Normal heart size. There is a mildly tortuous thoracic aorta. Midline trachea. Bones/joints: No acute abnormalities. Old healed right lateral 6th rib fracture is seen. XR/XR chest 1V portable [id number] IMPRESSION: No confluent infiltrates in the lungs.
[2022-01-14 08:45] VITALS: BP 161/102; PULSE 99; RESP 16; TEMP 36.7; O2SAT 96; BMI 25.8
--- NOTE | 2022-01-14 08:58 | W.ED.GENADLT ---
HPI - General Adult General: Chief complaint: General Medical Stated complaint: DIALYSIS SITE PAIN Time Seen by Provider: 01/14/22 08:32 Source: patient Mode of arrival: EMS History of Present Illness: 66-year-old male presents emergency room complaining of drainage from his tunneled dialysis cath. We seen him a couple days ago his white count was normal and imaging of the area did not show any signs of abscess. He returns today is continuing to complain of drainage. He has not had a fever at all. He has continued to get dialysis through the catheter without any difficulty. Cultures done 3 days ago on the chart have not come back 2 out of 3 bottles positive. For coagulase positive staph. Patient has end-stage renal disease and usually gets dialysis Tuesdays and Saturdays. He is also reporting increased drainage from the entry site of the tunneled dialysis cath. As well as tenderness to the site Onset (ago): day(s) Location: chest Severity: moderate Quality: sharp Pain Consistency: constant Relieving factors: none Exacerbating factors: none Associated symptoms: Reports chest pain, decreased appetite, malaise, nausea, rash and weakness; Deny confusion, cough, diaphoresis, dyspnea, fevers/chills, headache(s), palpitations, seizures, short of breath, syncope or vomiting Treatments prior to arrival: none Review of Systems Const: Reports: fatigue and malaise; Denies: fever(s), chills or diaphoresis ENMT: Denies: throat pain, ear or mastoid pain, nasal discharge or nasal congestion Card: Reports: chest pain; Denies: palpitations or syncope Resp: Denies: dyspnea GI: Reports: nausea; Denies: abdominal pain or vomiting Skin/Breast: Reports: rash, skin pain, skin tenderness and changing lesions Neuro: Denies: headache(s) or confusion PFSH ED PFSH: Medical History Anemia in chronic kidney disease (CKD) BPH NOS w ur obs/LUTS Cellulitis Chest pain CHF exacerbation Combined D/S CHF CHF exacerbation CKD (chronic kidney disease) stage 4, GFR 15-29 ml/min COPD exacerbation Elevated PSA End stage renal disease Erectile dysfunction Gout attack History of pulmonary embolism Hyperkalemia Hyperlipidemia Hypersomnolence Hypertension, essential Hypoalbuminemia Insomnia Leukocytosis Mild aortic regurgitation Mild aortic stenosis 12/07/2018: Mean gradient 4.6 mmHg, aortic valve area 2.2 cm? Moderate pulmonary arterial systolic hypertension NSTEMI (non-ST elevated myocardial infarction) Obstructive sleep apnea Smoking Quit 2020 Stasis dermatitis of lower extremity due to chronic peripheral vascular hypertension Tear of left rotator cuff Surgical History H/O abdominal surgery hernia History of ankle surgery History of back surgery Postoperative state Family History Family/Other Cancer Mother Dementia Diabetes Sister Diabetes CAD (coronary artery disease) Father , AT AGE 78 Brain aneurysm Denies family history of Clotting disorder Hyperlipidemia Psychiatric illness Chronic kidney disease (CKD) Suicide Anesthesia complication Bleeding disorder Family history of premature coronary artery disease Lung disease Hypertension Stroke Social History Smoking and tobacco status: former smoker Quit status (tobacco): has quit using tobacco Year quit tobacco: 2020 Former quit date comment: 0.5 ppd X 15 years Alcohol intake: former Marital status: Current occupational status: disabled History of recent travel: No Physical Exam Const: GENERAL APPEARANCE: cooperative and comfortable ORIENTATION/CONSCIOUSNESS: Yes awake, Yes oriented to person, Yes oriented to place and Yes oriented to time HENMT: COMMON NORMALS: normocephalic, atraumatic and hearing grossly normal bilaterally HEAD & SCALP: normocephalic and atraumatic Resp: COMMON NORMALS: normal respiratory effort, No retractions, No use of accessory muscles and clear to auscultation bilaterally AUSCULTATION: clear to auscultation bilaterally Cardio: COMMON NORMALS: regular rate, regular rhythm and No murmurs present (Cardio) RATE: regular rate RHYTHM: regular rhythm GI: COMMON NORMALS: Soft to palpation and No hepatosplenomegaly present AUSCULTATION: Yes normoactive bowel sounds PALPATION: Yes Soft to palpation, No Tenderness to palpation present (GI), No Guarding due to palpation present (GI) and Yes No hepatosplenomegaly present Extremity: COMMON NORMALS: normal to inspection, capillary refill normal, no clubbing, cyanosis or edema, no calf tenderness and no pedal edema Neuro: SENSORIUM/ORIENTATION: Yes oriented to person, Yes oriented to place and Yes oriented to time Skin: COMMON NORMALS: no rashes or lesions noted GENERAL SKIN EXAM: no rashes or lesions noted Course Vital Signs: Vital signs: Vital Signs Temperature 98.1 F 01/14/22 08:45 Pulse Rate 104 H 01/14/22 11:27 Respiratory Rate 18 01/14/22 14:22 Blood Pressure 167/97 01/14/22 13:00 Pulse Oximetry 98 01/14/22 14:22 Oxygen Delivery Me thod 01/14/22 13:00 Oxygen Flow Rate 2 01/14/22 13:00 MDM - General Adult Medical Decision Making Unfortunately nephrology service are a lot available for period of time at our facility. So we can treat him for the infection we can replace the tunneled dialysis catheter we cannot perform his hemodialysis. He is needing that today. We will have to make arrangements for transfer. Discussed with t patient has also been started on IV vancomycin. He patient ultimately were able to find a bed at [facility] in stable condition. He did have mildly elevated potassium which was treated calcium chloride IV. Medical Records I reviewed the patient's medical records. Lab Data I reviewed the patient's lab results. : 01/14/22 08:56 01/14/22 08:56 Radiology Impressions Chest X-Ray 01/14/22 08:34 IMPRESSION: No confluent infiltrates in the lungs. Laboratory Results WBC 19.7 10^3/uL (4.0-10.0) H 01/14/22 08:56 RBC 3.84 10^6/uL (4.1-5.3) L 01/14/22 08:56 Hgb 12.5 g/dL (11.7-16.6) 01/14/22 08:56 Hct 37.1 % (42.0-52.0) L 01/14/22 08:56 MCV 96.6 fl (80-94) H 01/14/22 08:56 MCH 32.6 pg (28.0-34.0) 01/14/22 08:56 MCHC 33.7 g/dL (30.0-36.0) 01/14/22 08:56 RDW 15.9 % (12.1-15.1) H 01/14/22 08:56 Plt Count 159 10^3/cmm (130-400) 01/14/22 08:56 MPV 11.6 fL (7.4-10.4) H 01/14/22 08:56 Neut % (Auto) 84.2 % 01/14/22 08:56 Lymph % (Auto) 5.8 % 01/14/22 08:56 [place] % (Auto) 8.3 % 01/14/22 08:56 Eos % (Auto) 0.1 % 01/14/22 08:56 Baso % (Auto) 0.2 % 01/14/22 08:56 Neut # (Auto) 16.56 10^3/uL (1.8-7.7) H 01/14/22 08:56 Lymph # (Auto) 1.2 10^3/uL (0.8-4.8) 01/14/22 08:56 [place] # (Auto) 1.6 10^3/uL (0.2-0.9) H 01/14/22 08:56 Eos # (Auto) 0.0 10^3/uL (0.0-0.8) 01/14/22 08:56 Baso # (Auto) 0.0 10^3/uL (0.0-0.1) 01/14/22 08:56 Nucleated RBC % (auto) 0 % 01/14/22 08:56 Nucleated RBCs # 0.0 /100WBC 01/14/22 08:56 Sodium 129 mmol/L (136-145) L 01/14/22 08:56 Potassium 5.3 mmol/L (3.5-5.1) H 01/14/22 08:56 Chloride 90 mmol/L (98-107) L 01/14/22 08:56 Carbon Dioxide 24 mmol/L (22-29) 01/14/22 08:56 Anion Gap 20.3 (5-19) H 01/14/22 08:56 BUN 37 mg/dL (8-23) H 01/14/22 08:56 Creatinine 7.4 mg/dL (0.7-1.2) H* 01/14/22 08:56 GFR Calculation 9.0 mL/min (90-130) L 01/14/22 08:56 Glucose 113 mg/dL (65-115) 01/14/22 08:56 Calculated Osmolality 277 mOsm/kg (285-295) L 01/14/22 08:56 Lactic Acid 2.0 mmol/L (0.5-2.2) 01/14/22 08:56 Calcium 9.0 mg/dL (8.5-10.5) 01/14/22 08:56 Total Bilirubin 0.9 mg/dL (0.15-1.2) 01/14/22 08:56 AST 28 U/L (0-40) 01/14/22 08:56 ALT 17 U/L (0-41) 01/14/22 08:56 Alkaline Phosphatase 98 U/L (40-130) 01/14/22 08:56 Total Protein 7.7 g/dL (6.6-8.7) 01/14/22 08:56 Albumin 3.3 g/dL (3.5-5.2) L 01/14/22 08:56 Globulin 4.4 g/dL (1.3-4.6) 01/14/22 08:56 SARS-CoV-2 Ag (Rapid) Negative (Negative) 01/14/22 10:13 Discharge Plan Discharge Patient Disposition: Transfer to ED Clinical Impression: Bacteremia associated with intravascular line, ESRD (end stage renal disease) on dialysis, Cellulitis Condition: Stable Prescriptions: No Action sertraline 25 mg tablet 25 mg PO DAILY Qty: 30 5RF triamcinolone acetonide 0.5 % cream 1 applic topical DAILY Qty: 15 0RF hydralazine 50 mg tablet 75 mg PO TID Qty: 405 3RF Combivent Respimat 20-100 mcg/actuation mist 1 puff inhalation Q4H PRN (Reason: wheezing) 30 Days Qty: 4 4RF fluticasone propionate [Flonase Allergy Relief] 50 mcg/actuation spray,suspension 1 spray intranasal BID 30 Days Qty: 16 4RF Rx Instructions: administer into each nostril (DME) Cane See Rx Instructions .Route .MEDSUPPLY Qty: 1 0RF Rx Instructions: As directed albuterol sulfate 2.5 mg /3 mL (0.083 %) Solution For Nebulization 2.5 mg INHALATION QID PRN (Reason: Shortness Of Breath) nitroglycerin [Nitrostat] 0.4 mg tablet, sublingual 0.4 mg SUBLINGUAL Q5M PRN (Reason: Chest Pain) 30 Days Qty: 30 0RF albuterol sulfate [ProAir HFA] 90 mcg/actuation HFA aerosol inhaler 2 puff INHALATION Q6H PRN (Reason: Shortness Of Breath) trazodone 50 mg tablet 25 mg PO BEDTIME carvedilol 25 mg tablet 25 mg PO BID 30 Days Qty: 90 0RF Rx Instructions: must administer with a meal/food Referrals: Kian Colon MD [Primary Care Provider] - Coding Level of Care Code 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
[2022-01-14 09:15] LABS: Basophils % 0.2 %; Eosinophils % 0.1 %; Hematocrit 37.1 % (42.0-52.0); Hemoglobin 12.5 g/dL (11.7-16.6); Lymphocytes # 1.2 10^3/uL (0.8-4.8); Lymphocytes % 5.8 %; Mean Corpuscular HGB Conc 33.7 g/dL (30.0-36.0); Mean Corpuscular Hemoglobin 32.6 pg (28.0-34.0); Mean Corpuscular Volume 96.6 fl (80-94); Mean Platelet Volume 11.6 fL (7.4-10.4); Monocytes # 1.6 10^3/uL (0.2-0.9); Monocytes % 8.3 %; Neutrophils # 16.56 10^3/uL (1.8-7.7); Neutrophils % 84.2 %; Nucleated Red Blood Cells % 0 %; Platelet Count 159 10^3/cmm (130-400); Red Blood Count 3.84 10^6/uL (4.1-5.3); Red Cell Distribution Width 15.9 % (12.1-15.1); White Blood Count 19.7 10^3/uL (4.0-10.0)
[2022-01-14 09:31] LABS: Alanine Aminotransferase 17 U/L (0-41); Albumin Level 3.3 g/dL (3.5-5.2); Alkaline Phosphatase 98 U/L (40-130); Anion Gap 20.3 (5-19); Aspartate Amino Transferase 28 U/L (0-40); Blood Urea Nitrogen 37 mg/dL (8-23); Carbon Dioxide 24 mmol/L (22-29); Chloride 90 mmol/L (98-107); Globulin 4.4 g/dL (1.3-4.6); Glucose 113 mg/dL (65-115); Osmolality Calculated 277 mOsm/kg (285-295); Potassium 5.3 mmol/L (3.5-5.1); Sodium 129 mmol/L (136-145); Total Bilirubin 0.9 mg/dL (0.15-1.2); Total Protein 7.7 g/dL (6.6-8.7)
[2022-01-14] MEDS: ondansetron 2 mg/ML SDV 2 mL 4 MG IVP (09:35)
[2022-01-14] MEDS: morphine 4 mg/mL SDV 1 mL 6 MG IVP (09:35)
[2022-01-14] MEDS: vancomycin 1,000 MG in sodium chloride 0.9% 250 ML 250 MG IV (09:50)
[2022-01-14 11:27] VITALS: BP 144/94; PULSE 104; O2SAT 94
[2022-01-14 12:30] VITALS: BP 145/97; O2SAT 95
[2022-01-14 13:00] VITALS: BP 167/97; RESP 19; O2SAT 97
[2022-01-14 13:24] LABS: SARS Covid-2 Antigen Negative (Negative)
[2022-01-14 14:22] VITALS: RESP 18; O2SAT 98
[2022-01-14] MEDS: sodium chloride 0.9% 250 ML IV (14:22)
[2022-01-14] MEDS: calcium chloride 10% Syr 10 mL 2 GM IVP (14:22)
[2022-01-14] MEDS: morphine 4 mg/mL SDV 1 mL 2 MG IVP (14:22)
[2022-01-14 15:37] VITALS: BP 142/108; PULSE 91; O2SAT 98
== END 2022-01-14 15:40 ==
PROVIDERS: Emergency Provider Family Medicine; PCP Family Medicine Adult Medicine
DX: T82.7XXA Infection and inflammatory reaction due to other cardiac and vascular devices, implants and grafts, initial encounter (principal); R78.81 Bacteremia; I13.2 Hypertensive heart and chronic kidney disease with heart failure and with stage 5 chronic kidney disease, or end stage renal disease; N18.6 End stage renal disease; I50.9 Heart failure, unspecified; Z99.2 Dependence on renal dialysis; Z86.711 Personal history of pulmonary embolism; E78.5 Hyperlipidemia, unspecified; I25.2 Old myocardial infarction; Z87.891 Personal history of nicotine dependence; Z20.822 Contact with and (suspected) exposure to COVID-19
CPT/HCPCS: 36415; 71045; 80053; 83605; 85025; 87040; 87077; 87150; 87186; 87205; 87426; 96365; 96375; 99284; J2270; J2405; J3370; J3490; J7050

== ENCOUNTER 2022-01-25 16:36 | Emergency (ER) | payer MEDICARE, SELFPAY ==
[2022-01-25 17:47] VITALS: BP 170/103; PULSE 76; RESP 18; TEMP 36.5; O2SAT 96
--- NOTE | 2022-01-25 20:06 | CTR_ITS ---
PROCEDURE INFORMATION: Exam: CT Chest With Contrast; Diagnostic Exam date and time: 01/25/2022 9:32 PM Age: 66 years old Clinical indication: Chest wall pain and right-sided; Additional info: Chest right shoulder pain TECHNIQUE: Imaging protocol: Diagnostic computed tomography of the chest with contrast. Radiation optimization: All CT scans at this facility use at least one of these dose optimization techniques: automated exposure control; mA and/or kV adjustment per patient size (includes targeted exams where dose is matched to clinical indication); or iterative reconstruction. Contrast material: OMNIPAQUE 350; Contrast volume: 95 ml; Contrast route: INTRAVENOUS (IV); COMPARISON: CT chest wo con [id number] 10/02/2021 4:01 PM RADIATION DOSE METRICS: Total DLP (mGy-cm): 458.57 FINDINGS: Lungs: Left lower lobe 2.5 cm nodular airspace opacification new compared to prior exam. Right middle lobe peripheral chronic interstitial fibrotic changes. Pleural spaces: No pneumothorax. No pleural effusion. Right minor fissure chronic appearing pleural thickening. Heart: Coronary artery atherosclerotic calcifications. Cardiomegaly. Lymph nodes: Prominent mediastinal lymph nodes measuring up to 13 mm, similar to prior exam, nonspecific. Vasculature: Unremarkable. No aortic aneurysm. Liver: Small amount of localized ascites suspected between the liver and diaphragm curled anteriorly series 4, image 61. Bones/joints: Unremarkable. No acute fracture. Soft tissues: Unremarkable. CT/CT chest w con* [id number] IMPRESSION: 1. Negative for pulmonary embolus. 2. Coronary artery atherosclerotic calcifications. 3. Cardiomegaly. 4. Left lower lobe 2.5 cm nodular airspace opacification new compared to prior exam. For both low risk and high risk patients, consider CT Chest at 3 months, PET/CT, or biopsy. (Reference: Tasha) 5. Right middle lobe peripheral chronic interstitial fibrotic changes. 6. Prominent mediastinal lymph nodes measuring up to 13 mm, similar to prior exam, nonspecific. 7. Small amount of localized ascites suspected between the liver and diaphragm curled anteriorly series 4, image 61. 8. Right minor fissure chronic appearing pleural thickening. REFERENCES: Tasha Gutierrez, et al. Guidelines for Management of Incidental Pulmonary Nodules Detected on CT Images: From the Fleischner Society 2017. Radiology. 2017;284(1):228-243.
--- NOTE | 2022-01-25 20:13 | W.ED.EXTPRO ---
HPI - Extremity Problem General: Chief complaint: Extremity Injury, Upper Stated complaint: Right Shoulder in pain Time Seen by Provider: 01/25/22 19:52 Source: patient Mode of arrival: ambulatory Limitations: no limitations History of Present Illness: 66-year-old male who had recently had a his right sided dialysis catheter pulled due to it getting infected. He states he has been out of the hospital for roughly a week and has been having severe right shoulder pain where the catheter site was placed. He denies any fever he denies any swelling to the right arm denies any worsening improving factors. Associated symptoms: Deny chest pain, fever(s) or rash Review of Systems Const: Denies: fever(s), chills, body aches or change in appetite Eyes: Denies: blurry vision or eye discomfort ENMT: Denies: throat pain or dental pain Card: Denies: chest pain Resp: Denies: dyspnea GI: Denies: abdominal pain, nausea, vomiting or diarrhea : Denies: dysuria Musc: Reports: extremity pain Skin/Breast: Denies: rash Neuro: Denies: headache(s) Psych: Denies: depression [place]/Lymph: Denies: easy bruising All/Imm: Denies: urticaria PFSH ED PFSH: Medical History Anemia in chronic kidney disease (CKD) BPH NOS w ur obs/LUTS Cellulitis Chest pain CHF exacerbation Combined D/S CHF CHF exacerbation CKD (chronic kidney disease) stage 4, GFR 15-29 ml/min COPD exacerbation Elevated PSA End stage renal disease Erectile dysfunction Gout attack History of pulmonary embolism Hyperkalemia Hyperlipidemia Hypersomnolence Hypertension, essential Hypoalbuminemia Insomnia Leukocytosis Mild aortic regurgitation Mild aortic stenosis 12/07/2018: Mean gradient 4.6 mmHg, aortic valve area 2.2 cm? Moderate pulmonary arterial systolic hypertension NSTEMI (non-ST elevated myocardial infarction) Obstructive sleep apnea Smoking Quit 2020 Stasis dermatitis of lower extremity due to chronic peripheral vascular hypertension Tear of left rotator cuff Surgical History H/O abdominal surgery hernia History of ankle surgery History of back surgery Postoperative state Family History Family/Other Cancer Mother Dementia Diabetes Sister Diabetes CAD (coronary artery disease) Father , AT AGE 78 Brain aneurysm Denies family history of Clotting disorder Hyperlipidemia Psychiatric illness Chronic kidney disease (CKD) Suicide Anesthesia complication Bleeding disorder Family history of premature coronary artery disease Lung disease Hypertension Stroke Social History Smoking and tobacco status: former smoker Quit status (tobacco): has quit using tobacco Year quit tobacco: 2020 Former quit date comment: 0.5 ppd X 15 years Alcohol intake: former Marital status: Current occupational status: disabled History of recent travel: No Physical Exam Const: COMMON NORMALS: no acute distress, patient oriented x3 and healthy appearing HENMT: COMMON NORMALS: normocephalic and atraumatic HEAD & SCALP: normocephalic and atraumatic Eye: COMMON NORMALS: Equal, round and reactive pupils present and EOMs intact bilaterally PUPIL: Yes Equal, round and reactive pupils present Neck/C-Spine: COMMON NORMALS: full ROM and supple OTHER: No swelling or tenderness to the right side of the neck Chest: COMMONS NORMALS: normal inspection of the chest and normal palpation of entire chest wall Resp: COMMON NORMALS: normal respiratory effort, No retractions, No use of accessory muscles and clear to auscultation bilaterally AUSCULTATION: clear to auscultation bilaterally Cardio: COMMON NORMALS: regular rate, regular rhythm and No murmurs present (Cardio) RATE: regular rate RHYTHM: regular rhythm GI: COMMON NORMALS: Normal to inspection, nondistended, normoactive bowel sounds present, Soft to palpation, non-tender and no masses PALPATION: Yes Soft to palpation Extremity: COMMON NORMALS: normal to inspection and full ROM NARRATIVE EXTREMITY EXAM: Tenderness to right chest and shoulder distal pulses intact no swelling to his right arm. Neuro: COMMON NORMALS: patient oriented x3, moves all extremities and no focal motor deficits Psych: COMMON NORMALS: mental status grossly normal, Normal thought process present and cooperative THOUGHT PROCESS: Normal thought process present Skin: COMMON NORMALS: no rashes or lesions noted and no wounds GENERAL SKIN EXAM: no rashes or lesions noted Course Vital Signs: Vital signs: Vital Signs Temperature 97.7 F 01/25/22 17:47 Pulse Rate 97 01/25/22 21:33 Respiratory Rate 18 01/25/22 21:33 Blood Pressure 175/106 01/25/22 21:33 Pulse Oximetry 100 01/25/22 21:33 Oxygen Delivery Me thod 01/25/22 21:33 MDM - Extremity (Nontraumatic) Medical Decision Making Patient presents here with right shoulder pain likely muscular in origin he has no signs of infection or blood clot CT scan is normal he stable for discharge at this time. Lab Data : 01/25/22 21:25 01/25/22 21:[address] 01/25/22 20:06 IMPRESSION: 1. Negative for pulmonary embolus. 2. Coronary artery atherosclerotic calcifications. 3. Cardiomegaly. 4. Left lower lobe 2.5 cm nodular airspace opacification new compared to prior exam. For both low risk and high risk patients, consider CT Chest at 3 months, PET/CT, or biopsy. (Reference: Tasha) 5. Right middle lobe peripheral chronic interstitial fibrotic changes. 6. Prominent mediastinal lymph nodes measuring up to 13 mm, similar to prior exam, nonspecific. 7. Small amount of localized ascites suspected between the liver and diaphragm curled anteriorly series 4, image 61. 8. Right minor fissure chronic appearing pleural thickening. REFERENCES: Tasha Gutierrez, et al. Guidelines for Management of Incidental Pulmonary Nodules Detected on CT Images: From the Fleischner Society 2017. Radiology. 2017;284(1):228-243. ADDENDUM: 01/25/222155 Several chronic healed right lateral rib fractures. Laboratory Results WBC 13.1 10^3/uL (4.0-10.0) H 01/25/22 21:25 RBC 3.64 10^6/uL (4.1-5.3) L 01/25/22 21:25 Hgb 11.2 g/dL (11.7-16.6) L 01/25/22 21:25 Hct 35.1 % (42.0-52.0) L 01/25/22 21:25 MCV 96.4 fl (80-94) H 01/25/22 21:25 MCH 30.8 pg (28.0-34.0) 01/25/22 21:25 MCHC 31.9 g/dL (30.0-36.0) 01/25/22 21:25 RDW 15.4 % (12.1-15.1) H 10/24/22 21:25 Plt Count 308 10^3/cmm (130-400) 01/25/22 21:25 MPV 10.6 fL (7.4-10.4) H 01/25/22 21:25 Neut % (Auto) 82.5 % 01/25/22 21:25 Lymph % (Auto) 8.3 % 01/25/22 21:25 [place] % (Auto) 7.0 % 01/25/22 21:25 Eos % (Auto) 1.2 % 01/25/22 21:25 Baso % (Auto) 0.5 % 01/25/22 21:25 Neut # (Auto) 10.83 10^3/uL (1.8-7.7) H 01/25/22 21:25 Lymph # (Auto) 1.1 10^3/uL (0.8-4.8) 01/25/22 21:25 [place] # (Auto) 0.9 10^3/uL (0.2-0.9) 01/25/22 21:25 Eos # (Auto) 0.2 10^3/uL (0.0-0.8) 01/25/22 21:25 Baso # (Auto) 0.1 10^3/uL (0.0-0.1) 01/25/22 21:25 Nucleated RBC % (auto) 0 % 01/25/22: Nucleated RBCs # 0.0 /100WBC 01/25/22 21:25 Sodium 136 mmol/L (136-145) 01/25/22:25 Potassium 5.0 mmol/L (3.5-5.1) 01/25/22 21:25 Chloride 100 mmol/L (98-107) 01/25/22 21:25 Carbon Dioxide 23 mmol/L (22-29) 01/25/22 21:25 Anion Gap 18.0 (5-19) 01/25/22 21:25 Glucose 88 mg/dL (65-115) 01/25/22 21:25 Calculated Osmolality 295 mOsm/kg (285-295) 01/25/22 21:25 Calcium 8.6 mg/dL (8.5-10.5) 01/25/22 21:25 Total Bilirubin 0.4 mg/dL (0.15-1.2) 01/25/22 21:25 AST 32 U/L (0-40) 01/25/22 21:25 ALT < 5 U/L (0-41) 01/25/22 21:25 Total Protein 7.8 g/dL (6.6-8.7) 01/25/22 21:25 Globulin 4.6 g/dL (1.3-4.6) 01/25/22 21:25 Discharge Plan Discharge Patient Disposition: Home Clinical Impression: Right shoulder pain Condition: Stable Prescriptions: New hydrocodone-acetaminophen 5-325 mg tablet 1 tab PO Q6H PRN (Reason: pain) Qty: 14 0RF No Action sertraline 25 mg tablet 25 mg PO DAILY Qty: 30 5RF triamcinolone acetonide 0.5 % cream 1 applic topical DAILY Qty: 15 0RF hydralazine 50 mg tablet 75 mg PO TID Qty: 405 3RF Combivent Respimat 20-100 mcg/actuation mist 1 puff inhalation Q4H PRN (Reason: wheezing) 30 Days Qty: 4 4RF fluticasone propionate [Flonase Allergy Relief] 50 mcg/actuation spray,suspension 1 spray intranasal BID 30 Days Qty: 16 4RF Rx Instructions: administer into each nostril (DME) Cane See Rx Instructions .Route .MEDSUPPLY Qty: 1 0RF Rx Instructions: As directed albuterol sulfate 2.5 mg /3 mL (0.083 %) Solution For Nebulization 2.5 mg INHALATION QID PRN (Reason: Shortness Of Breath) nitroglycerin [Nitrostat] 0.4 mg tablet, sublingual 0.4 mg SUBLINGUAL Q5M PRN (Reason: Chest Pain) 30 Days Qty: 30 0RF furosemide 40 mg tablet 40 mg PO DAILY atorvastatin 20 mg tablet 20 mg PO DAILY lisinopril 20 mg tablet 20 mg PO DAILY aspirin 81 mg tablet,delayed release (DR/EC) 81 mg PO DAILY calcium acetate(phosphat bind) 667 mg capsule 1,334 mg PO TID sevelamer carbonate 800 mg tablet 800 mg PO TID RenaPlex-D 800 mcg-12.5 mg -2,000 unit tablet 1 tab PO DAILY albuterol sulfate [ProAir HFA] 90 mcg/actuation HFA aerosol inhaler 2 puff INHALATION Q6H PRN (Reason: Shortness Of Breath) trazodone 50 mg tablet 25 mg PO BEDTIME carvedilol 25 mg tablet 25 mg PO BID 30 Days Qty: 90 0RF Rx Instructions: must administer with a meal/food Discharge Orders: Discharge ED (Routine); Ordered 01/25/22 Ordered By: Emily Francisco Referrals: Kian Colon MD [Primary Care Provider] - 1-3 days Discharge Diet: Advance as tolerated Discharge Activity: Resume usual activity Patient Instructions: Shoulder Pain (ED), Opioid Safety Coding Level of Care Code ED Rn Pain Management for Chg Fwd Exam Comprehensive
[2022-01-25 21:25] VITALS: RESP 18
[2022-01-25] MEDS: morphine 4 mg/mL SDV 1 mL IVP (21:25)
[2022-01-25] MEDS: ondansetron 2 mg/ML SDV 2 mL 4 MG IVP (21:25)
[2022-01-25 21:33] VITALS: BP 175/106; PULSE 97; RESP 18; O2SAT 100
[2022-01-25] MEDS: iohexol 350 mg/mL 100 mL Btl IV (21:37)
[2022-01-25 21:51] LABS: Basophils # 0.1 10^3/uL (0.0-0.1); Basophils % 0.5 %; Eosinophils # 0.2 10^3/uL (0.0-0.8); Eosinophils % 1.2 %; Hematocrit 35.1 % (42.0-52.0); Hemoglobin 11.2 g/dL (11.7-16.6); Lymphocytes # 1.1 10^3/uL (0.8-4.8); Lymphocytes % 8.3 %; Mean Corpuscular HGB Conc 31.9 g/dL (30.0-36.0); Mean Corpuscular Hemoglobin 30.8 pg (28.0-34.0); Mean Corpuscular Volume 96.4 fl (80-94); Mean Platelet Volume 10.6 fL (7.4-10.4); Monocytes # 0.9 10^3/uL (0.2-0.9); Neutrophils # 10.83 10^3/uL (1.8-7.7); Neutrophils % 82.5 %; Nucleated Red Blood Cells % 0 %; Platelet Count 308 10^3/cmm (130-400); Red Blood Count 3.64 10^6/uL (4.1-5.3); Red Cell Distribution Width 15.4 % (12.1-15.1); White Blood Count 13.1 10^3/uL (4.0-10.0)
[2022-01-25 22:08] LABS: Alanine Aminotransferase < 5 U/L (0-41); Albumin Level 3.2 g/dL (3.5-5.2); Alkaline Phosphatase 157 U/L (40-130); Aspartate Amino Transferase 32 U/L (0-40); Blood Urea Nitrogen 50 mg/dL (8-23); Calcium 8.6 mg/dL (8.5-10.5); Carbon Dioxide 23 mmol/L (22-29); Chloride 100 mmol/L (98-107); Globulin 4.6 g/dL (1.3-4.6); Glomerular Filtration Rate 9.9 mL/min (90-130); Glucose 88 mg/dL (65-115); Osmolality Calculated 295 mOsm/kg (285-295); Sodium 136 mmol/L (136-145); Total Bilirubin 0.4 mg/dL (0.15-1.2); Total Protein 7.8 g/dL (6.6-8.7)
[2022-01-25] MEDS: HYDROcodone-acetaminophen 5-325 mg Tablet 1 TAB PO (22:35)
[2022-01-25 22:42] VITALS: BP 148/94; PULSE 106; RESP 16; O2SAT 98
== END 2022-01-25 22:39 | disposition home or self-care (01) ==
PROVIDERS: Emergency Provider Emergency Medicine; PCP Family Medicine Adult Medicine
DX: M25.511 Pain in right shoulder (principal); Z79.82 Long term (current) use of aspirin; Z87.891 Personal history of nicotine dependence; I13.2 Hypertensive heart and chronic kidney disease with heart failure and with stage 5 chronic kidney disease, or end stage renal disease; N18.6 End stage renal disease; I50.40 Unspecified combined systolic (congestive) and diastolic (congestive) heart failure; J44.9 Chronic obstructive pulmonary disease, unspecified; E78.5 Hyperlipidemia, unspecified; I25.2 Old myocardial infarction
CPT/HCPCS: 71260; 80053; 85025; 96374; 96375; 99285; J2270; J2405; Q9967

== ENCOUNTER → 2022-02-08 13:38 | Outpatient (BNVA) | payer MEDICARE, SELFPAY | PROVIDERS: PCP Family Medicine Adult Medicine; Visit Provider Nurse Practitioner Family | DX: I13.2 Hypertensive heart and chronic kidney disease with heart failure and with stage 5 chronic kidney disease, or end stage renal disease (principal); N18.6 End stage renal disease; I50.40 Unspecified combined systolic (congestive) and diastolic (congestive) heart failure; Z99.2 Dependence on renal dialysis; Z87.891 Personal history of nicotine dependence | CPT/HCPCS: 99213 ==

== ENCOUNTER → 2022-04-13 14:59 | Outpatient (BNVA) | payer MEDICARE, SELFPAY | PROVIDERS: PCP Family Medicine Adult Medicine; Visit Provider Orthopaedic Surgery | DX: I50.9 Heart failure, unspecified (principal); Z87.891 Personal history of nicotine dependence | CPT/HCPCS: 72100; 99203; 99214 ==

== ENCOUNTER 2022-04-16 07:54 | Outpatient (CLI) | payer MEDICARE, MEDICAID, SELFPAY ==
--- NOTE | 2022-04-16 07:45 | USCV_ITS ---
Hammonds Fredy Age: 66 Gender: M : 1955 Exam Date: 04/16/2022 08:07 Ordering Phys: Toney Mack MD (Andy) ([email or web address]) Technologist: Exam [place] [facility] [place]ication: lv function BP: 140 / 83 HR: 83 Rhythm: Sinus Technical Quality: Good MEASUREMENTS (Male / Female) Normal Values 2D ECHO LV Diastolic Diameter PLAX 5.1 cm 4.2 - 5.9 / 3.9 - 5.3 cm LV Systolic Diameter PLAX 3.4 cm IVS Diastolic Thickness 1.7 cm 0.6 - 1.0 / 0.6 - 0.9 cm IVS Systolic Thickness 1.6 cm LVPW Diastolic Thickness 1.1 cm 0.6 - 1.0 / 0.6 - 0.9 cm LVPW Systolic Thickness 1.8 cm LVOT Diameter 2.0 cm LV Ejection Fraction 2D Teich 60.8 % LV Ejection Fraction MOD 2C 62.3 % LV Ejection Fraction 2C AL 61.9 % LA Diameter 4.0 cm Aorta at Sinotubular Diameter 2.8 cm IVC Diameter 1.7 cm M-MODE Aortic Annulus Diameter 3.5 cm LA Ao Ratio MM 1.2 MV E Point Septal Separation 1.6 cm DOPPLER AV Peak Velocity 207.0 cm/s LVOT Peak Velocity 116.0 cm/s AV Area Cont Eq vti 1.6 cm squared AV Area Cont Eq pk 1.8 cm squared MV Area PHT 5.0 cm squared Mitral E to A Ratio 0.9 MV E' Velocity 36.5 cm/s Mitral E to MV E' Ratio 7.7 Mitral E to LV E' Lateral Ratio 6.5 Mitral E to LV E' Septal Ratio 9.2 TR Peak Velocity 247.3 cm/s TR Peak Gradient 24.5 mmHg TV Peak E Velocity 79.0 cm/s Right Atrial Pressure 3.0 mmHg Pulmonary Artery Systolic Pressu 27.5 mmHg RV Acceleration Time 0.2 s FINDINGS Left Ventricle Normal left ventricular size, systolic function and wall thickness, with no regional wall motion abnormalities. Grade I/IV diastolic dysfunction (abnormal relaxation filling pattern), normal to mildly elevated filling pressures. Left ventricular ejection fraction is estimated at 65 %. Right Ventricle Normal right ventricular size and systolic function. Right Atrium The right atrium is normal in size. Left Atrium The left atrium is normal in size. Mitral Valve Structurally normal mitral valve. Trace mitral valve regurgitation. Aortic Valve Structurally normal trileaflet aortic valve. No aortic valve stenosis. Mild aortic valve regurgitation. Tricuspid Valve Structurally normal tricuspid valve. Trace tricuspid valve regurgitation. Pulmonic Valve Structurally normal pulmonic valve. Pericardium Normal pericardium without effusion. Aorta Normal ascending aorta dimension. IVC The inferior vena cava appears normal. CONCLUSIONS Normal left ventricular size, systolic function and wall thickness, with no regional wall motion abnormalities. Grade I/IV diastolic dysfunction (abnormal relaxation filling pattern), normal to mildly elevated filling pressures. Left ventricular ejection fraction is estimated at 65 %. Structurally normal mitral valve. Trace mitral valve regurgitation. Structurally normal trileaflet aortic valve. No aortic valve stenosis. Mild aortic valve regurgitation. From the previous echo dated October 11, 2021 there has been a significant improvement in the left ventricular function. It is now normal. Dr. Wander Alvarado MD (Electronically Signed) Final Date: 16 April 2022 12:14 S
== END 2022-04-16 07:55 | disposition home or self-care (01) ==
LOC: RAD 07:54
PROVIDERS: PCP Family Medicine Adult Medicine; Visit Provider Thoracic Surgery (Cardiothoracic Vascular Surgery)
DX: I50.9 Heart failure, unspecified (principal); I35.1 Nonrheumatic aortic (valve) insufficiency
CPT/HCPCS: 93306

== ENCOUNTER → 2022-04-19 10:13 | Outpatient (BNVA) | payer MEDICARE, SELFPAY | PROVIDERS: PCP Family Medicine Adult Medicine; Referring Provider Family Medicine Adult Medicine; Visit Provider Dermatology | DX: L98.9 Disorder of the skin and subcutaneous tissue, unspecified (principal); R21 Rash and other nonspecific skin eruption; L72.0 Epidermal cyst | CPT/HCPCS: 88305 ==

== ENCOUNTER → 2022-05-13 14:49 | Outpatient (BNVA) | payer MEDICARE, SELFPAY | PROVIDERS: PCP Family Medicine Adult Medicine; Visit Provider Orthopaedic Surgery | DX: M48.062 Spinal stenosis, lumbar region with neurogenic claudication (principal) | CPT/HCPCS: 99214 ==

== ENCOUNTER → 2022-05-18 16:36 | Outpatient (BNVA) | payer MEDICARE, SELFPAY | PROVIDERS: PCP Family Medicine Adult Medicine; Visit Provider Family Medicine Adult Medicine | DX: R76.8 Other specified abnormal immunological findings in serum (principal) | CPT/HCPCS: 87902 ==

== ENCOUNTER 2022-05-29 14:04 | Emergency (ER) | payer MEDICARE, SELFPAY ==
[2022-05-29] VITALS (7 sets, daily range): BP systolic 124–154; BP diastolic 81–102; PULSE 82–104; RESP 15–22; O2SAT 96–99
--- NOTE | 2022-05-29 14:15 | ECG_ITS ---
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 Measurements Intervals [place] Rate: 98 P: 80 [place]: 142 QRS: -62 QRSD: 101 T: -36 QT: 365 QTc: 466 Interpretive Statements SINUS RHYTHM WITH FREQUENT ECTOPIC PREMATURE COMPLEXES POSSIBLE LEFT ATRIAL ENLARGEMENT [-0.1mV P-WAVE IN V1/V2] LEFT AXIS DEVIATION [QRS AXIS < -30] LEFT VENTRICULAR HYPERTROPHY AND ST-T CHANGE [VOLTAGE CRITERIA PLUS ST/T ABNORMALITY] Compared to ECG 01/12/2022 06:08:53 Sinus tachycardia no longer present Left anterior fascicular block no longer present T-wave abnormality no longer present Possible ischemia no longer present Electronically Signed On 05-29-2022 20:50:32 LINEN CONTROLLER by Ben Rincon M.D. [id number]
--- NOTE | 2022-05-29 14:15 | XRR_ITS ---
PROCEDURE INFORMATION: Exam: XR Chest Exam date and time: 05/29/2022 2:22 PM Age: 67 years old Clinical indication: Pain; Chest pressure; Additional info: Chest pain TECHNIQUE: Imaging protocol: Radiologic exam of the chest. Views: 1 view. COMPARISON: CT chest w con* [id number] 01/25/2022 9:32 PM FINDINGS: Lungs: Lungs are well aerated without a focal area of consolidation. Pleural spaces: Unremarkable. No pleural effusion. No pneumothorax. Heart/Mediastinum: The cardiac silhouette appears enlarged, some of which is magnification related to the AP projection. Bones/joints: Unremarkable. XR/XR chest 1V portable [id number] IMPRESSION: Lungs are well aerated without a focal area of consolidation.
[2022-05-29 14:35] LABS: Basophils # 0.1 10^3/uL (0.0-0.1); Basophils % 0.6 %; Eosinophils # 0.2 10^3/uL (0.0-0.8); Eosinophils % 2.2 %; Hematocrit 32.7 % (42.0-52.0); Hemoglobin 10.5 g/dL (11.7-16.6); Lymphocytes # 1.4 10^3/uL (0.8-4.8); Lymphocytes % 17.8 %; Mean Corpuscular HGB Conc 32.1 g/dL (30.0-36.0); Mean Corpuscular Hemoglobin 29.8 pg (28.0-34.0); Mean Corpuscular Volume 92.9 fl (80-94); Mean Platelet Volume 10.1 fL (7.4-10.4); Monocytes # 0.8 10^3/uL (0.2-0.9); Monocytes % 10.4 %; Neutrophils # 5.56 10^3/uL (1.8-7.7); Neutrophils % 68.6 %; Nucleated Red Blood Cells % 0 %; Platelet Count 316 10^3/cmm (130-400); Red Blood Count 3.52 10^6/uL (4.1-5.3); Red Cell Distribution Width 17.2 % (12.1-15.1); White Blood Count 8.1 10^3/uL (4.0-10.0)
[2022-05-29] MEDS: morphine 4 mg/mL SDV 1 mL IVP ×2 (14:35→16:53)
--- NOTE | 2022-05-29 14:53 | ED_ITS ---
HPI - Chest Pain General: Chief Complaint: Chest Pain Stated Complaint: CHEST PAIN; SOB Time Seen by Provider: 05/29/22 14:06 Source: patient, EMS and old records reviewed Mode of arrival: EMS Limitations: no limitations History of Present Illness: 67-year-old male presents to the emergency department from dialysis. He gets dialysis Tuesday and Tuesday. Patient reports he was having off-and-on chest discomfort during his dialysis session. It was never severe but continued to be noticeable. Sometimes it is an ache and dull, other times it feels more like sharp or pressure. He did not notice any aggravating or alleviating symptoms. He tells me that he tried nitroglycerin and it did not really do anything. He denies a history of DVT or PE. He has not had any extremity swelling, shortness of breath, nausea, vomiting, diaphoresis, jaw pain, arm pain, syncope or lightheadedness. He does have a history of congestive heart failure, hypertension, lung nodule. Patient does tell me that he noticed that he was out of his carvedilol. He usually takes his medications prior to going to dialysis. Today he took all of his medicines except for the labetalol due to being out of it. He is unsure if this is contributing. He sometimes has a cough but no fever, chest congestion, rhi norrhea, sweats. Currently he reports he has a mild discomfort in his chest but is requesting some cheeseburgers Associated symptoms: Deny abdominal pain, dyspnea, fever(s), nausea, palpitations, syncope or vomiting Review of Systems General: Reports: 10 or more systems reviewed and unremarkable except in HPI and below Const: Denies: fever(s), chills or body aches Eyes: Denies: change in vision ENMT: Denies: throat pain Card: Reports: chest pain, lightheadedness, pre-syncope, dyspnea on exertion and orthopnea; Denies: palpitations, edema or syncope Resp: Denies: dyspnea or productive cough GI: Denies: abdominal pain, nausea, vomiting or diarrhea : Denies: flank pain, dysuria or urinary frequency Musc: Denies: neck pain, back pain, extremity pain or extremity swelling Skin/Breast: Denies: rash or erythema Neuro: Denies: headache(s), numbness in extremities, weakness in extremities, lack of coordination or difficulty walking [facility] ED [facility]: Medical History (Updated 05/29/22 @ 17:17 by Sai Villasenor MD) Actinic keratosis due to exposure to sunlight Anemia in chronic kidney disease (CKD) Basal cell carcinoma (BCC) of head BPH NOS w ur obs/LUTS Cellulitis Chest pain CHF exacerbation Combined D/S CHF CHF exacerbation CKD (chronic kidney disease) stage 4, GFR 15-29 ml/min Complications, mechanical, catheter, dialysis Constipation due to slow transit COPD exacerbation Elevated PSA End stage renal disease Erectile dysfunction Former smoker Quit 2020 Gout attack Hepatitis C antibody test positive History of pulmonary embolism Hyperkalemia Hyperlipidemia Hypersomnolence Hypertension, essential Hypoalbuminemia Insomnia Insomnia Leukocytosis Lung nodule, solitary Mild aortic regurgitation Mild aortic stenosis 12/07/2018: Mean gradient 4.6 mmHg, aortic valve area 2.2 cm? 10/02/21: No aortic stenosis Moderate pulmonary arterial systolic hypertension NSTEMI (non-ST elevated myocardial infarction) Obstructive sleep apnea Pruritic dermatitis Chronic thickening of skin at right ankle with chronic excoriations Tear of left rotator cuff Surgical History H/O abdominal surgery hernia History of ankle surgery History of back surgery Postoperative state Family History Family/Other Cancer Mother Dementia Diabetes Sister Diabetes CAD (coronary artery disease) Father , AT AGE 78 Brain aneurysm Denies family history of Clotting disorder Hyperlipidemia Psychiatric illness Chronic kidney disease (CKD) Suicide Anesthesia complication Bleeding disorder Family history of premature coronary artery disease Lung disease Hypertension Stroke Social History Smoking and tobacco status: former smoker Quit status (tobacco): has quit using tobacco Year quit tobacco: 2020 Former quit date comment: 0.5 ppd X 15 years Smoking risk assessment/counseling performed?: No Alcohol intake: former Desire information about alcohol rehabilitation?: No Counseling given: No Marital status: Current occupational status: disabled Physical Exam Const: COMMON NORMALS: no limitations, alert and well nourished EXAM LIMITATIONS: no altered mental status HENMT: COMMON NORMALS: normocephalic, atraumatic and external ears normal HEAD & SCALP: normocephalic and atraumatic EXTERNAL EAR: Yes external ears normal MOUTH: no muffled voice Eye: COMMON NORMALS: EOMs intact bilaterally, conjunctivae normal and no scleral icterus CONJUNCTIVA: Yes conjunctivae normal Neck/C-Spine: GENERAL: Yes normal visual inspection and Yes trachea midline Chest: CHEST: Yes Symmetrical chest wall rise, No crepitus and Yes tenderness rib, pectoral muscle and costal cartilage Resp: COMMON NORMALS: normal respiratory effort, No use of accessory muscles and clear to auscultation bilaterally AUSCULTATION: clear to auscultation bilaterally Cardio: RATE: tachycardic RHYTHM: abnormal rhythm PERIPHERAL PULSES: radial pulses present GI: COMMON NORMALS: Soft to palpation and non-tender PALPATION: Yes Soft to palpation and No Guarding due to palpation present (GI) Extremity: COMMON NORMALS: normal to inspection Neuro: COMMON NORMALS: moves all extremities, no focal motor deficits and no sensory deficits noted SENSORIUM/ORIENTATION: Yes alert SPEECH: speech normal Psych: COMMON NORMALS: mental status grossly normal, Normal thought process present, cooperative, normal affect and speech normal SPEECH: Yes normal speech THOUGHT PROCESS: Normal thought process present Skin: COMMON NORMALS: no rashes or lesions noted, turgor normal and no jaundice GENERAL SKIN EXAM: no rashes or lesions noted and turgor normal Course Vital Signs: Vital signs: Vital Signs Pulse Rate 90 05/29/22 16:55 Respiratory Rate 16 05/29/22 16:55 Blood Pressure 152/102 05/29/22 16:55 Pulse Oximetry 99 05/29/22 16:55 Oxygen Delivery Me thod 05/29/22 16:55 MDM - Chest Pain Medical Decision Making 67-year-old male presents to the emergency department complaining of intermittent chest discomfort in the left chest. He does have some chest wall tenderness which he says feels similar to what he is experiencing. He also has quite a variable description for his discomfort including sometimes sharp, sometimes dull sometimes pressure, and other times an ache. He does have some tachycardia and states that he was out of his carvedilol. He has frequent PACs. The differential diagnosis is large and includes non-ST segment elevation myocardial infarction, angina, anxiety, pulmonary artery hypertension, chest wall pain, pleurisy, PE, GERD, chest pain related to his dialysis, pericarditis/pleurisy, electrolyte abnormalities, other. UPDATE: Trop #1 and #2 are at patient's baseline. He has been checked on multiple times. He's in no distress, eating, watching television, legs crossed. No signs of decompensated CHF or hypertension emergency. Low suspicion for PE. Patient remains sore in chest. I really think he has pleurisy/pericarditis. Plan to d/c with return precautions. Lab Data 05/29/22 14:17 05/29/22 14:17 Radiology Impressions Chest X-Ray 05/29/22 14:15 IMPRESSION: Lungs are well aerated without a focal area of consolidation. Laboratory Results WBC 8.1 10^3/uL (4.0-10.0) 05/29/22 14:17 RBC 3.52 10^6/uL (4.1-5.3) L 05/29/22 14:17 Hgb 10.5 g/dL (11.7-16.6) L 05/29/22 14:17 Hct 32.7 % (42.0-52.0) L 05/29/22 14:17 MCV 92.9 fl (80-94) 05/29/22 14:17 MCH 29.8 pg (28.0-34.0) 05/29/22 14:17 MCHC 32.1 g/dL (30.0-36.0) 05/29/22 14:17 RDW 17.2 % (12.1-15.1) H 05/29/22 14:17 Plt Count 316 10^3/cmm (130-400) 05/29/22 14:17 MPV 10.1 fL (7.4-10.4) 05/29/22 14:17 Neut % (Auto) 68.6 % 05/29/22 14:17 Lymph % (Auto) 17.8 % 05/29/22 14:17 [place] % (Auto) 10.4 % 05/29/22 14:17 Eos % (Auto) 2.2 % 05/29/22 14:17 Baso % (Auto) 0.6 % 05/29/22 14:17 Neut # (Auto) 5.56 10^3/uL (1.8-7.7) 05/29/22 14:17 Lymph # (Auto) 1.4 10^3/uL (0.8-4.8) 05/29/22 14:17 [place] # (Auto) 0.8 10^3/uL (0.2-0.9) 05/29/22 14:17 Eos # (Auto) 0.2 10^3/uL (0.0-0.8) 05/29/22 14:17 Baso # (Auto) 0.1 10^3/uL (0.0-0.1) 05/29/22 14:17 Nucleated RBC % (auto) 0 % 05/29/22 14:17 Nucleated RBCs # 0.0 /100WBC 05/29/22 14:17 Sodium 132 mmol/L (136-145) L 05/29/22 14:17 Potassium 3.7 mmol/L (3.5-5.1) 05/29/22 14:17 Chloride 96 mmol/L (98-107) L 05/29/22 14:17 Carbon Dioxide 26 mmol/L (22-29) 05/29/22 14:17 Anion Gap 13.7 (5-19) 05/29/22 14:17 BUN 15 mg/dL (8-23) 05/29/22 14:17 Creatinine 3.3 mg/dL (0.7-1.2) H 05/29/22 14:17 GFR Calculation 22.7 mL/min (90-130) L 05/29/22 14:17 Glucose 145 mg/dL (65-115) H 05/29/22 14:17 Calculated Osmolality 277 mOsm/kg (285-295) L 05/29/22 14:17 Calcium 8.9 mg/dL (8.5-10.5) 05/29/22 14:17 Troponin T Baseline 50 ng/L (0-15) H 05/29/22 14:17 Troponin T 120 Minute 58.15 ng/L (0-15) H 05/29/22 16:26 Delta Troponin T 8.15 ABS# (0-10) 05/29/22 16:26 EKG Data EKG 1: Interpretation: Sinus rhythm, frequent PACs, this gives an irregular rhythm appearance, left atrial enlargement, left axis deviation, QRS 101 ms with incomplete left bundle branch block, ST and T changes are noted primarily in V5 and V6 Discharge Plan Discharge Patient Disposition: Home Clinical Impression: Atypical chest pain Condition: Stable Prescriptions: No Action (DME) spacer for Albuterol inhaler See Rx Instructions .Route .MEDSUPPLY Qty: 1 0RF Rx Instructions: As directed albuterol sulfate 2.5 mg /3 mL (0.083 %) solution for nebulization 2.5 mg INHALATION QID PRN (Reason: Shortness Of Breath) Qty: 180 5RF fluticasone propionate [Flonase Allergy Relief] 50 mcg/actuation spray,suspension 1 spray intranasal BID 30 Days Qty: 16 4RF Rx Instructions: administer into each nostril (DME) Nebulizer & supplies See Rx Instructions .Route .MEDSUPPLY Qty: 1 1RF Rx Instructions: As directed clobetasol 0.05 % ointment 1 applic topical BID 14 Days Qty: 45 1RF Rx Instructions: Apply to affected area no more than 2 weeks per month, not for face or skin folds trazodone 50 mg tablet 50 mg PO .qhs PRN (Reason: sleep) Qty: 30 5RF mirtazapine [Remeron] 15 mg tablet 15 mg PO .qhs Qty: 30 0RF tramadol 50 mg tablet 50 mg PO BID PRN (Reason: pain, moderate) Qty: 60 2RF docusate sodium 250 mg capsule 250 mg PO DAILY Qty: 90 1RF Combivent Respimat 20-100 mcg/actuation mist 1 puff inhalation Q4H PRN (Reason: wheezing) 30 Days Qty: 4 4RF fluconazole 100 mg tablet 100 mg PO DAILY fluticasone propion-salmeterol [Advair Diskus] 250-50 mcg/dose blister with device 1 inh inhalation BID triamcinolone acetonide 0.5 % cream 1 applic topical BID Qty: 15 0RF hydralazine 50 mg tablet 75 mg PO TID (DME) Cane See Rx Instructions .Route .MEDSUPPLY Qty: 1 0RF Rx Instructions: As directed lisinopril 20 mg tablet 20 mg PO DAILY Qty: 90 3RF albuterol sulfate [ProAir HFA] 90 mcg/actuation HFA aerosol inhaler 2 puff INHALATION Q6H PRN (Reason: Shortness Of Breath) Qty: 8.5 0RF Rx Instructions: NEEDS APPT PRIOR TO FURTHER REFILLS nitroglycerin [Nitrostat] 0.4 mg tablet, sublingual 0.4 mg SUBLINGUAL Q5M PRN (Reason: Chest Pain) 30 Days Qty: 30 0RF atorvastatin 20 mg tablet 20 mg PO DAILY aspirin 81 mg tablet,delayed release (DR/EC) 81 mg PO DAILY calcium acetate(phosphat bind) 667 mg capsule 1,334 mg PO TID RenaPlex-D 800 mcg-12.5 mg -2,000 unit tablet 1 tab PO DAILY furosemide 40 mg tablet 40 mg PO BID carvedilol 25 mg tablet 25 mg PO BID 30 Days Qty: 90 0RF Rx Instructions: must administer with a meal/food Discharge Orders: Discharge ED (Routine); Ordered 05/29/22 Ordered By: Sai Villasenor Referrals: Kian Colon MD [Primary Care Provider] - 4-7 days Discharge Diet: Usual diet Discharge Activity: Increase activity as tolerated Patient Instructions: Chest Pain (ED), Pain Management Activity Restrictions/Additional Instructions: Return to ER for changing or worsening chest pain, shortness of breath, passing out, jaw/arm pain, unusual sweating without activity, severe weakness, or worsening symptoms. Coding Level of Care Code ED Trekking Guide for Ramana Pillai
[2022-05-29] MEDS: metoprolol tartrate 1 mg/1 mL SDV 5 mL 5 MG IVP (14:58)
[2022-05-29] MEDS: nitroglycerin 0.4 mg sublingual Tablet SUBLINGUAL ×2 (15:00→15:12)
[2022-05-29 15:01] LABS: Blood Urea Nitrogen 15 mg/dL (8-23); Calcium 8.9 mg/dL (8.5-10.5); Carbon Dioxide 26 mmol/L (22-29); Chloride 96 mmol/L (98-107); Glomerular Filtration Rate 22.7 mL/min (90-130); Glucose 145 mg/dL (65-115); Osmolality Calculated 277 mOsm/kg (285-295); Sodium 132 mmol/L (136-145)
[2022-05-29 15:04] LABS: Troponin(5th) Baseline 50 ng/L (0-15)
[2022-05-29 15:12] LABS: Anion Gap 13.7 (5-19); Potassium 3.7 mmol/L (3.5-5.1)
--- NOTE | 2022-05-29 16:31 | ECG_ITS ---
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 Measurements Intervals [place] Rate: 84 P: 56 [place]: 134 QRS: -50 QRSD: 98 T: -73 QT: 383 QTc: 455 Interpretive Statements SINUS RHYTHM WITH OCCASIONAL VENTRICULAR PREMATURE COMPLEXES LEFT AXIS DEVIATION [QRS AXIS < -30] LEFT VENTRICULAR HYPERTROPHY AND ST-T CHANGE [VOLTAGE CRITERIA PLUS ST/T ABNORMALITY] Compared to ECG 05/29/2022 14:11:58 Ventricular premature complex(es) now present ST (T wave) deviation still present Electronically Signed On 05-29-2022 20:51:48 TAX ACCOUNTING ASSISTANT by Ben Rincon M.D. [id number]
[2022-05-29] MEDS: orphenadrine 30 mg/mL Inj 2 mL IVP (16:52)
[2022-05-29 16:55] LABS: Troponin 5 2HR 58.15 ng/L (0-15)
[2022-05-29 17:01] LABS: Troponin 5 2HR Delta 8.15 ABS# (0-10)
== END 2022-05-29 18:16 | disposition home or self-care (01) ==
PROVIDERS: Emergency Provider Emergency Medicine; PCP Family Medicine Adult Medicine
DX: R07.89 Other chest pain (principal); Z79.82 Long term (current) use of aspirin; Z87.891 Personal history of nicotine dependence; I13.2 Hypertensive heart and chronic kidney disease with heart failure and with stage 5 chronic kidney disease, or end stage renal disease; N18.6 End stage renal disease; I50.9 Heart failure, unspecified; I25.2 Old myocardial infarction
CPT/HCPCS: 36415; 71045; 80048; 84484; 85025; 93005; 96374; 96375; 96376; 99285; J2270; J2360; J3490

== ENCOUNTER → 2022-06-04 09:16 | Outpatient (BNVA) | payer MEDICARE, SELFPAY | PROVIDERS: PCP Family Medicine Adult Medicine; Visit Provider Internal Medicine | DX: I42.0 Dilated cardiomyopathy (principal); I13.0 Hypertensive heart and chronic kidney disease with heart failure and stage 1 through stage 4 chronic kidney disease, or unspecified chronic kidney disease; N18.30 Chronic kidney disease, stage 3 unspecified; I50.40 Unspecified combined systolic (congestive) and diastolic (congestive) heart failure; Z87.891 Personal history of nicotine dependence | CPT/HCPCS: 99214 ==

== ENCOUNTER → 2022-06-08 14:20 | Outpatient (BNVA) | payer MEDICARE, SELFPAY | PROVIDERS: PCP Family Medicine Adult Medicine; Visit Provider Surgery | DX: K59.01 Slow transit constipation (principal) | CPT/HCPCS: 99203 ==

== ENCOUNTER 2022-07-10 02:08 | Emergency (ER) | payer MEDICARE, SELFPAY ==
[2022-07-10 02:10] VITALS: BP 183/113; PULSE 88; RESP 20; TEMP 36.9; O2SAT 95; BMI 23.6
[2022-07-10 02:18] VITALS: BP 183/113; PULSE 88; RESP 16; O2SAT 97
--- NOTE | 2022-07-10 02:30 | ED_ITS ---
HPI - Back Pain/Injury General: Chief Complaint: Back Pain/Injury Stated Complaint: BACK PAIN Time Seen by Provider: 07/10/22 02:20 History of Present Illness: 67-year-old male patient comes in today with exacerbation of chronic back pain. Patient reports for the last 4 days his back pain has been worse than normal and has caused him to be sick to his stomach. Patient has not been having relief with his usual medication of tramadol. Patient appears nontoxic. Patient does have a history of end-stage renal disease, colon cancer, constipation, hyperlipidemia, CAD, lumbar stenosis with neurogenic claudication, CHF, and COPD. Associated symptoms: Reports nausea; Deny fever(s) Review of Systems General: Reports: 10 or more systems reviewed and unremarkable except in HPI and below Const: Denies: fever(s) Card: Denies: chest pain Resp: Denies: dyspnea GI: Reports: nausea : Denies: difficulty urinating Musc: Reports: back pain Skin/Breast: Denies: rash PFSH ED PFSH: Medical History (Updated 07/10/22 @ 02:28 by PETERSON Trimble) Abnormal chest CT Actinic keratosis due to exposure to sunlight Anemia in chronic kidney disease (CKD) BPH NOS w ur obs/LUTS CHF exacerbation Combined D/S CHF Complications, mechanical, catheter, dialysis Constipation due to slow transit COPD exacerbation Elevated PSA End stage renal disease Erectile dysfunction ESRD (end stage renal disease) on dialysis Former smoker Quit 2020 Gout attack Hepatitis C antibody test positive History of pulmonary embolism Hyperlipidemia Hypertension, essential Hypoalbuminemia Insomnia Lung nodule, solitary Mild aortic stenosis 12/07/2018: Mean gradient 4.6 mmHg, aortic valve area 2.2 cm? 10/02/21: No aortic stenosis Moderate pulmonary arterial systolic hypertension Nausea and vomiting NSTEMI (non-ST elevated myocardial infarction) Obstructive sleep apnea Pruritic dermatitis Chronic thickening of skin at right ankle with chronic excoriations Surgical History (Updated 06/08/22 @ 14:51 by Dhruv Alvarado DO) H/O abdominal surgery hernia History of ankle surgery History of back surgery Hx of shoulder surgery left Postoperative state Family History Family/Other Cancer Mother Dementia Diabetes Sister Diabetes CAD (coronary artery disease) Father , AT AGE 78 Brain aneurysm Denies family history of Clotting disorder Hyperlipidemia Psychiatric illness Chronic kidney disease (CKD) Suicide Anesthesia complication Bleeding disorder Family history of premature coronary artery disease Lung disease Hypertension Stroke Social History Smoking and tobacco status: former smoker Quit status (tobacco): has quit using tobacco Year quit tobacco: 2020 Former quit date comment: 0.5 ppd X 15 years Smoking risk assessment/counseling performed?: No Alcohol intake: former Desire information about alcohol rehabilitation?: No Counseling given: No Marital status: Current occupational status: disabled Physical Exam Const: COMMON NORMALS: alert HENMT: COMMON NORMALS: normocephalic HEAD & SCALP: normocephalic Neck/C-Spine: COMMON NORMALS: full ROM Resp: COMMON NORMALS: normal respiratory effort and clear to auscultation bilaterally AUSCULTATION: clear to auscultation bilaterally Cardio: COMMON NORMALS: regular rate and regular rhythm RATE: regular rate RHYTHM: regular rhythm Extremity: COMMON NORMALS: no pedal edema Neuro: SENSORIUM/ORIENTATION: Yes alert Skin: COMMON NORMALS: turgor normal GENERAL SKIN EXAM: turgor normal Course Vital Signs: Vital signs: Vital Signs Temperature 98.4 F 07/10/22 02:10 Pulse Rate 88 07/10/22 02:18 Respiratory Rate 16 07/10/22 02:34 Blood Pressure 183/113 07/10/22 02:18 Pulse Oximetry 94 07/10/22 02:34 Oxygen Delivery Me thod 07/10/22 02:18 MDM - Back Pain/Injury Medical Decision Making 67-year-old male patient comes in today for complaints of low back pain. On exam patient appears nontoxic. Abdomen soft nontender. Patient has muscle tenderness in the low back. Patient moves all extremities well. Vital signs are normal except for elevated blood pressure at 183 systolic. Differential diagnosis includes intervertebral disc disease, facet arthropathy, lumbar strain. Patient has a known diagnosis of lumbar stenosis with neurogenic claudication. Patient relates this to his normal back pain that is worse for last 3 to 4 days. Patient was given 1 mg Dilaudid IM with 4 mg of orphenadrine. Patient be continued on hydrocodone 1 tablet every 8 hours for severe pain along with his routine medications. Patient was recommended to follow-up with primary care or specialist on Tuesday or Tuesday and consideration of pain management follow-up. Patient reported understanding and agreed to plan. Discharge Plan Discharge Patient Disposition: Home Clinical Impression: Lumbar stenosis with neurogenic claudication Low back pain Qualifiers: Chronicity: unspecified Back pain laterality: midline Sciatica presence: unspecified whether sciatica present Qualified Code(s): M54.50 - Low back pain, unspecified Condition: Stable Prescriptions: New hydrocodone-acetaminophen 5-325 mg tablet 1 tab PO Q8H PRN (Reason: Pain, Severe) Qty: 12 0RF ondansetron 4 mg tablet,disintegrating 4 mg PO Q8H PRN (Reason: nausea and vomiting) Qty: 12 0RF No Action (DME) spacer for Albuterol inhaler See Rx Instructions .Route .MEDSUPPLY Qty: 1 0RF Rx Instructions: As directed albuterol sulfate 2.5 mg /3 mL (0.083 %) solution for nebulization 2.5 mg INHALATION QID PRN (Reason: Shortness Of Breath) Qty: 180 5RF fluticasone propionate [Flonase Allergy Relief] 50 mcg/actuation spray,suspension 1 spray intranasal BID 30 Days Qty: 16 4RF Rx Instructions: administer into each nostril (DME) Nebulizer & supplies See Rx Instructions .Route .MEDSUPPLY Qty: 1 1RF Rx Instructions: As directed clobetasol 0.05 % ointment 1 applic topical BID 14 Days Qty: 45 1RF Rx Instructions: Apply to affected area no more than 2 weeks per month, not for face or skin folds mirtazapine [Remeron] 15 mg tablet 15 mg PO .qhs Qty: 30 0RF tramadol 50 mg tablet 50 mg PO BID PRN (Reason: pain, moderate) Qty: 60 2RF docusate sodium 250 mg capsule 250 mg PO DAILY Qty: 90 1RF metoclopramide HCl [Reglan] 10 mg tablet 10 mg PO BID Qty: 60 5RF Combivent Respimat 20-100 mcg/actuation mist 1 puff inhalation Q4H PRN (Reason: wheezing) 30 Days Qty: 4 4RF fluconazole 100 mg tablet 100 mg PO DAILY fluticasone propion-salmeterol [Advair Diskus] 250-50 mcg/dose blister with device 1 inh inhalation BID triamcinolone acetonide 0.5 % cream 1 applic topical BID Qty: 15 0RF hydralazine 50 mg tablet 75 mg PO TID doxepin 10 mg capsule 10 mg PO .q hs Qty: 30 5RF (DME) Cane See Rx Instructions .Route .MEDSUPPLY Qty: 1 0RF Rx Instructions: As directed lisinopril 20 mg tablet 20 mg PO DAILY Qty: 90 3RF albuterol sulfate [ProAir HFA] 90 mcg/actuation HFA aerosol inhaler 2 puff INHALATION Q6H PRN (Reason: Shortness Of Breath) Qty: 8.5 0RF Rx Instructions: NEEDS APPT PRIOR TO FURTHER REFILLS carvedilol 25 mg tablet 25 mg PO BID 30 Days Qty: 90 0RF Rx Instructions: must administer with a meal/food nitroglycerin [Nitrostat] 0.4 mg tablet, sublingual 0.4 mg SUBLINGUAL Q5M PRN (Reason: Chest Pain) 30 Days Qty: 30 0RF atorvastatin 20 mg tablet 20 mg PO DAILY aspirin 81 mg tablet,delayed release (DR/EC) 81 mg PO DAILY calcium acetate(phosphat bind) 667 mg capsule 1,334 mg PO TID RenaPlex-D 800 mcg-12.5 mg -2,000 unit tablet 1 tab PO DAILY furosemide 40 mg tablet 40 mg PO BID Discharge Orders: Discharge ED (Routine); Ordered 07/10/22 Ordered By: Toney Garcia Referrals: Kian Colon MD [Primary Care Provider] - Discharge Diet: Usual diet Discharge Activity: Increase activity as tolerated Patient Instructions: Opioid Safety, Pain Management Activity Restrictions/Additional Instructions: Activity as tolerated. Continue with routine care as directed. Use hydrocodone for severe pain. Use Zofran as needed for nausea. Continue with tramadol 1 tablet twice a day, and acetaminophen, to control pain. Use hydrocodone for severe pain. Drink plenty of water with medications. Follow-up with primary care for new instructions. Return to ED for new concerns. Coding Level of Care Code ED Glass Products Inspector for Ramana Pillai
[2022-07-10 02:34] VITALS: RESP 16; O2SAT 94
[2022-07-10] MEDS: HYDROmorphone 1 mg/mL INJ 1 mL IM (02:34)
[2022-07-10] MEDS: ondansetron 2 mg/ML SDV 2 mL 4 MG IM (02:35)
[2022-07-10] MEDS: HYDROcodone-acetaminophen 5-325 mg Tablet 2 TAB PO (03:01)
[2022-07-10 03:16] VITALS: BP 183/113; PULSE 88; RESP 16; TEMP 36.9; O2SAT 94
== END 2022-07-10 03:17 | disposition home or self-care (01) ==
PROVIDERS: Emergency Provider Nurse Practitioner Family; PCP Family Medicine Adult Medicine
DX: M48.062 Spinal stenosis, lumbar region with neurogenic claudication (principal); Z79.82 Long term (current) use of aspirin; Z87.891 Personal history of nicotine dependence; J44.9 Chronic obstructive pulmonary disease, unspecified; I13.2 Hypertensive heart and chronic kidney disease with heart failure and with stage 5 chronic kidney disease, or end stage renal disease; N18.6 End stage renal disease; I50.9 Heart failure, unspecified; Z99.2 Dependence on renal dialysis; Z86.19 Personal history of other infectious and parasitic diseases; E78.5 Hyperlipidemia, unspecified
CPT/HCPCS: 96372; 99284; J1170; J2405

== ENCOUNTER 2022-07-12 11:51 | Emergency (ER) | payer MEDICARE, SELFPAY ==
[2022-07-12 11:58] VITALS: BP 133/81; PULSE 88; TEMP 36.9; O2SAT 95; BMI 23.6
--- NOTE | 2022-07-12 12:37 | ED_ITS ---
HPI - Weakness General: Chief complaint: Weakness Stated complaint: SEVERE BACK PAIN/ FEVER/ WEAKNESS Time Seen by Provider: 07/12/22 12:20 History of Present Illness: Patient presents to the ER with complaints of back pain is 10 out of 10 at rest radiating down both legs. Patient says this started at dialysis today. Patient does have a history of chronic low back pain with radiculopathy normally states it is 10 out of 10 radiating down both legs already sees spine surgeon for this and need surgery. Patient says this is nothing new from any other time is come on like this. Patient does have pain medicine at home but he says his ex- took him to [place] and he does not have access to them currently. Patient was just recently here 2 days ago for the exact same thing. Onset (ago): day(s) Duration: constant (Chronic) Location: other (Chronic low back pain with bilateral radiculopathy) Migration: none Severity: moderate Quality: aching Relieving factors: none Exacerbating factors: movement Context: history of similar Associated symptoms: Reports no associated symptoms; Denies chest pain, chills, dysuria, fever(s), headache(s), nausea or vomiting Review of Systems General: Reports: 10 or more systems reviewed and unremarkable except in HPI and below Const: Denies: fever(s) or chills Eyes: Denies: change in vision ENMT: Denies: throat pain or odynophagia Card: Denies: chest pain, palpitations or irregular heart rhythm Resp: Denies: dyspnea or productive cough GI: Denies: abdominal pain, nausea, vomiting or diarrhea : Denies: flank pain, difficulty urinating or dysuria Musc: Reports: back pain; Denies: neck pain Skin/Breast: Denies: rash or pruritus Neuro: Denies: headache(s) or numbness in extremities PFSH ED PFSH: Medical History Abnormal chest CT Actinic keratosis due to exposure to sunlight Anemia in chronic kidney disease (CKD) BPH NOS w ur obs/LUTS CHF exacerbation Combined D/S CHF Complications, mechanical, catheter, dialysis Constipation due to slow transit COPD exacerbation Elevated PSA End stage renal disease Erectile dysfunction ESRD (end stage renal disease) on dialysis Former smoker Quit 2020 Gout attack Hepatitis C antibody test positive History of pulmonary embolism Hyperlipidemia Hypertension, essential Hypoalbuminemia Insomnia Lung nodule, solitary Mild aortic stenosis 12/07/2018: Mean gradient 4.6 mmHg, aortic valve area 2.2 cm? 10/02/21: No aortic stenosis Moderate pulmonary arterial systolic hypertension Nausea and vomiting NSTEMI (non-ST elevated myocardial infarction) Obstructive sleep apnea Pruritic dermatitis Chronic thickening of skin at right ankle with chronic excoriations Surgical History H/O abdominal surgery hernia History of ankle surgery History of back surgery Hx of shoulder surgery left Postoperative state Family History Family/Other Cancer Mother Dementia Diabetes Sister Diabetes CAD (coronary artery disease) Father , AT AGE 78 Brain aneurysm Denies family history of Clotting disorder Hyperlipidemia Psychiatric illness Chronic kidney disease (CKD) Suicide Anesthesia complication Bleeding disorder Family history of premature coronary artery disease Lung disease Hypertension Stroke Social History Smoking and tobacco status: former smoker Quit status (tobacco): has quit using tobacco Year quit tobacco: 2020 Former quit date comment: 0.5 ppd X 15 years Smoking risk assessment/counseling performed?: No Alcohol intake: former Desire information about alcohol rehabilitation?: No Counseling given: No Marital status: Current occupational status: disabled Physical Exam Narrative: EXAM NARRATIVE: Patient was resting in bed in no acute distress and appeared comfortably when I entered the room Const: COMMON NORMALS: no acute distress, average body habitus, patient oriented x3, no limitations, healthy appearing, alert and well nourished HENMT: COMMON NORMALS: normocephalic, atraumatic, hearing grossly normal bilaterally, external ears normal, Normal external nose present and moist oral mucous membranes HEAD & SCALP: normocephalic and atraumatic NOSE: Normal external nose present EXTERNAL EAR: Yes external ears normal Neck/C-Spine: COMMON NORMALS: full ROM, no lymphadenopathy, supple, no meningeal signs, no JVD and Thyroid normal THYROID: Thyroid normal Chest: COMMONS NORMALS: normal inspection of the chest and normal palpation of entire chest wall Resp: COMMON NORMALS: normal respiratory effort, No retractions, No use of accessory muscles and clear to auscultation bilaterally AUSCULTATION: clear to auscultation bilaterally Cardio: COMMON NORMALS: no JVD, regular rate, regular rhythm, S1 normal heart sound present, S2 normal heart sound present, No gallops present (Cardio), No clicks present (Cardio), No murmurs present (Cardio) and No rub (Cardio) RATE: regular rate RHYTHM: regular rhythm HEART SOUNDS: S1 normal heart sound present and S2 normal heart sound present GI: COMMON NORMALS: Normal to inspection, nondistended, normoactive bowel sounds present, Soft to palpation, non-tender and No hepatosplenomegaly present PALPATION: Yes Soft to palpation and Yes No hepatosplenomegaly present : COMMON NORMALS: Yes no CVA tenderness BLADDER/KIDNEY EXAM: Yes no CVA tenderness Back/Pelvis: COMMON NORMALS: no CVA tenderness and thoracic and lumbar spine normal to inspection Neuro: COMMON NORMALS: patient oriented x3 SENSORIUM/ORIENTATION: Yes alert MENINGEAL SIGNS: Yes no meningeal signs Course Vital Signs: Vital signs: Vital Signs Temperature 98.4 F 07/12/22 11:58 Pulse Rate 88 07/12/22 11:58 Blood Pressure 133/81 07/12/22 11:58 Pulse Oximetry 95 07/12/22 11:58 Oxygen Delivery Me thod 07/12/22 11:58 MDM - Weakness Medical Decision Making Patient presents to the ER with complaints of back pain 10 out of 10 radiating down both legs. This is chronic in nature with no new trauma. This is similar to multiple times he has been in in the past. Patient states he has pain medicine but is it is with his ex- in [place]. Patient appears no acute distress and appears to be resting comfortably when I entered the room. X-rays were initially ordered for this patient which I did cancel due to the chronicity of his low back pain. He was given 2 [place] 5 mg p.o. while in the ER. He will be discharged home to follow-up with his primary care doc and/or orthopedic doc for chronic management of his chronic condition. Differential Diagnosis Unlikely acute myocardial infarction, anemia, hypoglycemia, hypothyroidism, rhabdomyolysis, sepsis or dehydration Discharge Plan Discharge Patient Disposition: Home Clinical Impression: Lumbar stenosis with neurogenic claudication Condition: Stable Prescriptions: No Action (DME) spacer for Albuterol inhaler See Rx Instructions .Route .MEDSUPPLY Qty: 1 0RF Rx Instructions: As directed albuterol sulfate 2.5 mg /3 mL (0.083 %) solution for nebulization 2.5 mg INHALATION QID PRN (Reason: Shortness Of Breath) Qty: 180 5RF fluticasone propionate [Flonase Allergy Relief] 50 mcg/actuation spray,suspension 1 spray intranasal BID 30 Days Qty: 16 4RF Rx Instructions: administer into each nostril (DME) Nebulizer & supplies See Rx Instructions .Route .MEDSUPPLY Qty: 1 1RF Rx Instructions: As directed clobetasol 0.05 % ointment 1 applic topical BID 14 Days Qty: 45 1RF Rx Instructions: Apply to affected area no more than 2 weeks per month, not for face or skin folds mirtazapine [Remeron] 15 mg tablet 15 mg PO .qhs Qty: 30 0RF tramadol 50 mg tablet 50 mg PO BID PRN (Reason: pain, moderate) Qty: 60 2RF docusate sodium 250 mg capsule 250 mg PO DAILY Qty: 90 1RF metoclopramide HCl [Reglan] 10 mg tablet 10 mg PO BID Qty: 60 5RF Combivent Respimat 20-100 mcg/actuation mist 1 puff inhalation Q4H PRN (Reason: wheezing) 30 Days Qty: 4 4RF fluconazole 100 mg tablet 100 mg PO DAILY fluticasone propion-salmeterol [Advair Diskus] 250-50 mcg/dose blister with device 1 inh inhalation BID triamcinolone acetonide 0.5 % cream 1 applic topical BID Qty: 15 0RF hydralazine 50 mg tablet 75 mg PO TID doxepin 10 mg capsule 10 mg PO .q hs Qty: 30 5RF (DME) Cane See Rx Instructions .Route .MEDSUPPLY Qty: 1 0RF Rx Instructions: As directed lisinopril 20 mg tablet 20 mg PO DAILY Qty: 90 3RF albuterol sulfate [ProAir HFA] 90 mcg/actuation HFA aerosol inhaler 2 puff INHALATION Q6H PRN (Reason: Shortness Of Breath) Qty: 8.5 0RF Rx Instructions: NEEDS APPT PRIOR TO FURTHER REFILLS carvedilol 25 mg tablet 25 mg PO BID 30 Days Qty: 90 0RF Rx Instructions: must administer with a meal/food nitroglycerin [Nitrostat] 0.4 mg tablet, sublingual 0.4 mg SUBLINGUAL Q5M PRN (Reason: Chest Pain) 30 Days Qty: 30 0RF atorvastatin 20 mg tablet 20 mg PO DAILY aspirin 81 mg tablet,delayed release (DR/EC) 81 mg PO DAILY calcium acetate(phosphat bind) 667 mg capsule 1,334 mg PO TID RenaPlex-D 800 mcg-12.5 mg -2,000 unit tablet 1 tab PO DAILY furosemide 40 mg tablet 40 mg PO BID hydrocodone-acetaminophen 5-325 mg tablet 1 tab PO Q8H PRN (Reason: Pain, Severe) Qty: 12 0RF ondansetron 4 mg tablet,disintegrating 4 mg PO Q8H PRN (Reason: nausea and vomiting) Qty: 12 0RF Discharge Orders: Discharge ED (Routine); Ordered 07/12/22 Ordered By: Sorin Kat Referrals: Kian Colon MD [Primary Care Provider] - 1 week Patient Instructions: Lumbar Spinal Stenosis (ED) Activity Restrictions/Additional Instructions: Please follow-up with your primary care doctor and/or orthopedic surgeon for your chronic lumbar stenosis requiring chronic pain management. Coding Level of Care Code ED Special Technical Operations Officer for Ramana Pillai
[2022-07-12] MEDS: HYDROcodone-acetaminophen 5-325 mg Tablet 2 TAB PO (12:56)
== END 2022-07-12 13:35 | disposition home or self-care (01) ==
PROVIDERS: Emergency Provider Emergency Medicine; PCP Family Medicine Adult Medicine
DX: M48.062 Spinal stenosis, lumbar region with neurogenic claudication (principal); Z79.82 Long term (current) use of aspirin; Z87.891 Personal history of nicotine dependence; J44.9 Chronic obstructive pulmonary disease, unspecified; I13.2 Hypertensive heart and chronic kidney disease with heart failure and with stage 5 chronic kidney disease, or end stage renal disease; N18.6 End stage renal disease; I50.9 Heart failure, unspecified; Z99.2 Dependence on renal dialysis; Z86.19 Personal history of other infectious and parasitic diseases; E78.5 Hyperlipidemia, unspecified; I25.2 Old myocardial infarction
CPT/HCPCS: 99283

== ENCOUNTER 2023-02-15 16:38 | Emergency (ER) | payer MEDICARE, MEDICAID, SELFPAY ==
[2023-02-15] VITALS (8 sets, daily range): BP systolic 111–134; BP diastolic 72–87; PULSE 64–90; RESP 16–18; TEMP 36.4; O2SAT 94–98; BMI 22.9
--- NOTE | 2023-02-15 17:54 | XRR_ITS ---
PROCEDURE INFORMATION: Exam: XR Chest Exam date and time: 02/15/2023 7:04 PM Age: 67 years old Clinical indication: Shortness of breath; Additional info: SOB TECHNIQUE: Imaging protocol: Radiologic exam of the chest. Views: 1 view. COMPARISON: CR XR chest 1V portable [id number] 05/29/2022 2:22 PM FINDINGS: Lungs: Right mid lung zone linear scarring. Mild patchy asymmetric left lower lung zone opacification. No dense consolidation. Pleural spaces: No pleural effusion or pneumothorax. Heart/Mediastinum: Unremarkable. No cardiomegaly. Bones/joints: Old right rib fractures. Partially visualized lower cervical spine fusion hardware. XR/XR chest 1V portable [id number] IMPRESSION: Mild hazy left lower lung zone opacification may represent pneumonia or atelectasis.
--- NOTE | 2023-02-15 17:54 | ECG_ITS ---
[facility] Test Date: 2023-02-15 Pat Name: Fredy Hammonds Department: Room: Gender: Male Plug Cutter: : [id number] Requested By: Emily Francisco Order Number: [id number] Arianne MD: Elle Carballo M.D. Measurements Intervals [place] Rate: 78 P: 46 [place]: 148 QRS: -46 QRSD: 105 T: -84 QT: 416 QTc: 475 Interpretive Statements SINUS RHYTHM WITH FREQUENT VENTRICULAR PREMATURE COMPLEXES LEFT ANTERIOR FASCICULAR BLOCK [QRS AXIS <= -45, QR IN I, RS IN II] LEFT VENTRICULAR HYPERTROPHY AND ST-T CHANGE [VOLTAGE CRITERIA PLUS ST/T ABNORMALITY] Compared to ECG 05/29/2022 16:31:52 Left anterior fascicular block now present Left-axis deviation no longer present ST (T wave) deviation still present Electronically Signed On 02-15-2023 23:20:32 JAVA PROGRAMMER ANALYST by Elle Carballo M.D. [id number]
--- NOTE | 2023-02-15 18:17 | ED_ITS ---
HPI - SOB/Dyspnea General: Chief Complaint: Shortness of Breath/Dyspnea Stated Complaint: sob, low O2 Time Seen by Provider: 02/15/23 18:10 Source: patient Mode of arrival: ambulatory Limitations: no limitations History of Present Illness: HPI Narrative: 67-year-old male with a history of COPD along with CHF states over the last 2 weeks he has had increasing cough wheezing and shortness of breath. States he is concerned he may have pneumonia he is in no distress here is some mild wheezing his pulse ox is 95% on room air he denies any pain. Denies any known fevers. Associated symptoms: Deny abdominal pain, chest pain, fever(s), nausea or vomiting Review of Systems Const: Denies: fever(s), chills, body aches or change in appetite ENMT: Denies: throat pain or dental pain Card: Denies: chest pain Resp: Reports: dyspnea, non-productive cough and wheezing GI: Denies: abdominal pain, nausea, vomiting or diarrhea : Denies: dysuria Musc: Denies: neck pain or back pain Skin/Breast: Denies: rash Neuro: Denies: headache(s) PFSH ED PFSH: Medical History Anemia in chronic kidney disease (CKD) BPH NOS w ur obs/LUTS CAD in [place] artery NSTEMI 10/2021 CHF exacerbation Combined D/S CHF Constipation due to slow transit COPD exacerbation Elevated PSA Erectile dysfunction ESRD (end stage renal disease) on dialysis Former smoker Quit 2020 Hepatitis C antibody test positive History of pulmonary embolism Hyperlipidemia Hypertension, essential Lung nodule, solitary Mild aortic stenosis 12/07/2018: Mean gradient 4.6 mmHg, aortic valve area 2.2 cm? 10/02/21: No aortic stenosis Moderate pulmonary arterial systolic hypertension NSTEMI (non-ST elevated myocardial infarction) Obstructive sleep apnea Pruritic dermatitis Chronic thickening of skin at right ankle with chronic excoriations Surgical History H/O abdominal surgery hernia History of ankle surgery History of back surgery Hx of shoulder surgery left Postoperative state Family History Family/Other Cancer Mother Dementia Diabetes Sister Diabetes CAD (coronary artery disease) Father , AT AGE 78 Brain aneurysm Denies family history of Clotting disorder Hyperlipidemia Psychiatric illness Chronic kidney disease (CKD) Suicide Anesthesia complication Bleeding disorder Family history of premature coronary artery disease Lung disease Hypertension Stroke Social History Smoking and tobacco/nicotine status: former use of tobacco/nicotine Quit status (tobacco/nicotine): has quit using Year quit tobacco: 2020 Former quit date comment: 0.5 ppd X 15 years Alcohol intake: former Substance/Drug Use: never Marital status: Current occupational status: disabled Physical Exam Const: COMMON NORMALS: no acute distress, patient oriented x3 and healthy appearing HENMT: COMMON NORMALS: normocephalic and atraumatic HEAD & SCALP: normocephalic and atraumatic Eye: COMMON NORMALS: Equal, round and reactive pupils present and EOMs intact bilaterally PUPIL: Yes Equal, round and reactive pupils present Neck/C-Spine: COMMON NORMALS: full ROM and supple Chest: COMMONS NORMALS: normal inspection of the chest and normal palpation of entire chest wall Resp: COMMON NORMALS: normal respiratory effort, No retractions and No use of accessory muscles AUSCULTATION: wheezes Cardio: COMMON NORMALS: regular rate, regular rhythm and No murmurs present (Cardio) RATE: regular rate RHYTHM: regular rhythm Extremity: COMMON NORMALS: normal to inspection and full ROM Neuro: COMMON NORMALS: patient oriented x3, moves all extremities and no focal motor deficits Psych: COMMON NORMALS: mental status grossly normal, Normal thought process present and cooperative THOUGHT PROCESS: Normal thought process present Skin: COMMON NORMALS: no rashes or lesions noted and no wounds GENERAL SKIN EXAM: no rashes or lesions noted Course Vital Signs: Vital signs: Vital Signs Temperature 97.6 F 02/15/23 17:00 Pulse Rate 71 02/15/23 22:23 Respiratory Rate 16 02/15/23 22:23 Blood Pressure 134/76 02/15/23 22:23 Pulse Oximetry 96 02/15/23 22:23 Oxygen Delivery Me thod Room Air 02/15/23 18:49 MDM - SOB/Dyspnea Medical Decision Making Patient presents here with some dyspnea x-ray showed a possible pneumonia and some wheezing here as well could be a bronchitis we will start him on antibiotics he is continue doing breathing treatments at home he is on dialysis schedule tomorrow he is to go to dialysis scheduled return if worsening he understands agrees to plan Medical Records I reviewed the patient's medical records. Lab Data I reviewed the patient's lab results. 02/15/23 18:10 02/15/23 18:10 Labs/Radiology: Radiology Impressions Chest X-Ray 02/15/23 17:54 IMPRESSION: Mild hazy left lower lung zone opacification may represent pneumonia or atelectasis. Laboratory Results WBC 5.23 10^3/uL (3.29-11.43) 02/15/23 18:10 RBC 4.09 10^6/uL (3.85-5.65) 02/15/23 18:10 Hgb 13.10 g/dL (11.27-16.99) 02/15/23 18:10 Hct 40.9 % (37-53) 02/15/23 18:10 MCV 100.0 fl (82-101) 02/15/23 18:10 MCH 32.0 pg (27-33) 02/15/23 18:10 MCHC 32.0 g/dL (30-55) 02/15/23 18:10 RDW 14.0 % (12.1-15.1) 02/15/23 18:10 Plt Count 125 10^3/cmm (157-399) L 02/15/23 18:10 MPV 10.8 fL (7.4-10.4) H 02/15/23 18:10 Neut % (Auto) 33.5 % 02/15/23 18:10 Lymph % (Auto) 30.2 % 02/15/23 18:10 [place] % (Auto) 15.7 % 02/15/23 18:10 Eos % (Auto) 19.1 % 02/15/23 18:10 Baso % (Auto) 1.3 % 02/15/23 18:10 Neut # (Auto) 1.75 10^3/uL (1.8-7.7) L 02/15/23 18:10 Lymph # (Auto) 1.6 10^3/uL (0.8-4.8) 02/15/23 18:10 [place] # (Auto) 0.8 10^3/uL (0.2-0.9) 02/15/23 18:10 Eos # (Auto) 1.0 10^3/uL (0.0-0.8) H 02/15/23 18:10 Baso # (Auto) 0.1 10^3/uL (0.0-0.1) 02/15/23 18:10 Nucleated RBC % (auto) 0 % 02/15/23 18:10 Nucleated RBCs # 0.0 /100WBC 02/15/23 18:10 Sodium 141 mmol/L (136-145) 02/15/23 18:10 Potassium 3.7 mmol/L (3.5-5.1) 02/15/23 18:10 Chloride 99 mmol/L (98-107) 02/15/23 18:10 Carbon Dioxide 31 mmol/L (22-29) H 02/15/23 18:10 Anion Gap 14.7 (5-19) 02/15/23 18:10 BUN 49 mg/dL (8-23) H 02/15/23 18:10 Creatinine 7.9 mg/dL (0.7-1.2) H* 02/15/23 18:10 GFR Calculation 8.3 mL/min (90-130) L 02/15/23 18:10 Glucose 127 mg/dL (65-115) H 02/15/23 18:10 Calculated Osmolality 307 mOsm/kg (285-295) H 02/15/23 18:10 Calcium 8.2 mg/dL (8.5-10.5) L 02/15/23 18:10 Total Bilirubin 0.4 mg/dL (0.15-1.2) 02/15/23 18:10 AST 37 U/L (0-40) 02/15/23 18:10 ALT 17 U/L (0-41) 02/15/23 18:10 Alkaline Phosphatase 139 U/L (40-130) H 02/15/23 18:10 Troponin T Baseline 69 ng/L (0-15) H 02/15/23 19:28 Troponin T 120 Minute 73.23 ng/L (0-15) H 02/15/23 21:27 Delta Troponin T 4.23 ABS# (0-10) 02/15/23 21:27 NT-Pro-B Natriuret Pep 8906 pg/mL (0-125) H 02/15/23 18:10 Total Protein 7.0 g/dL (6.6-8.7) 02/15/23 18:10 Albumin 3.7 g/dL (3.5-5.2) 02/15/23 18:10 Globulin 3.3 g/dL (1.3-4.6) 02/15/23 18:10 Influenza Type A Ag negative (Negative) 02/15/23 18:30 Influenza Type B Ag negative (Negative) 02/15/23 18:30 SARS-CoV-2 Ag (Rapid) negative (Negative) 02/15/23 18:30 All radiology interpretation(s) finalized by discharge EKG Data EKG 1: I personally reviewed and interpreted this EKG as follows: EKG Interpretation Date: 02/15/23 EKG interpretation time: 18:14 Interpretation: nsr hr [address] or t wave abnormalities qrs 105 qtc 449 Discharge Plan Discharge Patient Disposition: Home Clinical Impression: Community acquired pneumonia Condition: Stable Prescriptions: New doxycycline hyclate 100 mg tablet 100 mg PO BID 7 Days Qty: 14 0RF No Action (DME) spacer for Albuterol inhaler See Rx Instructions .Route .MEDSUPPLY Qty: 1 0RF Rx Instructions: As directed (DME) Nebulizer & supplies See Rx Instructions .Route .MEDSUPPLY Qty: 1 1RF Rx Instructions: As directed clobetasol 0.05 % ointment 1 applic topical BID 14 Days Qty: 45 1RF Rx Instructions: Apply to affected area no more than 2 weeks per month, not for face or skin folds lidocaine 4 % cream 1 applic topical BID PRN (Reason: pain) Qty: 30 1RF Rx Instructions: for use with dialysis (DME) home oxygen 2L/min 2 L/min flow See Rx Instructions .Route .MEDSUPPLY Qty: 1 0RF Rx Instructions: As directed (DME) Cane See Rx Instructions .Route .MEDSUPPLY Qty: 1 0RF Rx Instructions: As directed hydrocodone-acetaminophen 5-325 mg tablet 1 tab PO BID PRN (Reason: moderate pain) 30 Days Qty: 60 0RF albuterol sulfate 2.5 mg /3 mL (0.083 %) solution for nebulization 2.5 mg INHALATION QID PRN (Reason: Shortness Of Breath) Qty: 180 5RF albuterol sulfate [ProAir HFA] 90 mcg/actuation HFA aerosol inhaler 2 puff INHALATION Q6H PRN (Reason: Shortness Of Breath) Qty: 8.5 0RF Rx Instructions: NEEDS APPT PRIOR TO FURTHER REFILLS amlodipine 2.5 mg tablet 2.5 mg PO DAILY Qty: 90 0RF aspirin 81 mg tablet,delayed release (DR/EC) 81 mg PO DAILY Qty: 90 3RF atorvastatin 20 mg tablet 20 mg PO DAILY Qty: 90 0RF carvedilol 25 mg tablet 25 mg PO BID 30 Days Qty: 90 0RF Rx Instructions: must administer with a meal/food doxepin 10 mg capsule 10 mg PO .q hs Qty: 30 5RF fluticasone propionate [Flonase Allergy Relief] 50 mcg/actuation spray,suspension 1 spray intranasal BID 30 Days Qty: 16 4RF Rx Instructions: administer into each nostril hydralazine 50 mg tablet 75 mg PO TID Qty: 90 0RF Combivent Respimat 20-100 mcg/actuation mist 1 puff inhalation Q4H PRN (Reason: wheezing) 30 Days Qty: 4 4RF mirtazapine [Remeron] 15 mg tablet 15 mg PO .qhs Qty: 30 0RF triamcinolone acetonide 0.5 % cream 1 applic topical BID Qty: 15 0RF RenaPlex-D 800 mcg-12.5 mg -2,000 unit tablet 1 tab PO DAILY Qty: 90 3RF Reglan 10 mg tablet 10 mg PO BID PRN (Reason: Nausea) Qty: 60 2RF calcium acetate(phosphat bind) 667 mg capsule 1,334 mg PO TID Qty: 540 3RF docusate sodium 250 mg capsule 250 mg PO DAILY PRN (Reason: Constipation) Qty: 90 3RF fluticasone propion-salmeterol [Advair Diskus] 250-50 mcg/dose blister with device 1 inh inhalation BID Qty: 60 3RF nitroglycerin [Nitrostat] 0.4 mg tablet, sublingual 0.4 mg SUBLINGUAL Q5M PRN (Reason: Chest Pain) 30 Days Qty: 30 0RF furosemide 40 mg tablet 40 mg PO BID ondansetron 4 mg tablet,disintegrating 4 mg PO Q8H PRN (Reason: nausea and vomiting) Qty: 12 0RF Discharge Orders: Discharge ED (Routine); Ordered 02/15/23 Ordered By: Emily Francisco Referrals: Kian Colon MD [Primary Care Provider] - 1-3 days Discharge Diet: Advance as tolerated Discharge Activity: Resume usual activity Patient Instructions: Community Acquired Pneumonia (ED) Coding Level of Care Code ED Technical Project Manager for Ramana Pillai
[2023-02-15 18:23] LABS: Basophils # 0.1 10^3/uL (0.0-0.1); Basophils % 1.3 %; Eosinophils % 19.1 %; Hematocrit 40.9 % (37-53); Lymphocytes # 1.6 10^3/uL (0.8-4.8); Lymphocytes % 30.2 %; Mean Platelet Volume 10.8 fL (7.4-10.4); Monocytes # 0.8 10^3/uL (0.2-0.9); Monocytes % 15.7 %; Neutrophils # 1.75 10^3/uL (1.8-7.7); Neutrophils % 33.5 %; Nucleated Red Blood Cells % 0 %; Platelet Count 125 10^3/cmm (157-399); Red Blood Count 4.09 10^6/uL (3.85-5.65); White Blood Count 5.23 10^3/uL (3.29-11.43)
[2023-02-15] MEDS: albuterol 2.5 mg/3 mL Neb INHALATION (18:39)
[2023-02-15] MEDS: ipratropium-albuterol 3 mL Neb INHALATION (18:39)
[2023-02-15 18:53] LABS: Alanine Aminotransferase 17 U/L (0-41); Albumin Level 3.7 g/dL (3.5-5.2); Alkaline Phosphatase 139 U/L (40-130); Anion Gap 14.7 (5-19); Aspartate Amino Transferase 37 U/L (0-40); Blood Urea Nitrogen 49 mg/dL (8-23); Calcium 8.2 mg/dL (8.5-10.5); Carbon Dioxide 31 mmol/L (22-29); Chloride 99 mmol/L (98-107); Globulin 3.3 g/dL (1.3-4.6); Glomerular Filtration Rate 8.3 mL/min (90-130); Glucose 127 mg/dL (65-115); NT Pro B Type Natriuretic Pept 8906 pg/mL (0-125); Osmolality Calculated 307 mOsm/kg (285-295); Potassium 3.7 mmol/L (3.5-5.1); Sodium 141 mmol/L (136-145); Total Bilirubin 0.4 mg/dL (0.15-1.2)
[2023-02-15 19:20] LABS: Influenza A by IFA negative (Negative); Influenza B by IFA negative (Negative)
[2023-02-15 19:21] LABS: SARS Covid-2 Antigen negative (Negative)
--- NOTE | 2023-02-15 19:26 | ECG_ITS ---
[facility] Test Date: 2023-02-15 Pat Name: Fredy Hammonds Department: Room: Gender: Male Manager Operations: : 1955 Requested By: Emily Francisco Order Number: [id number] Arianne MD: Elle Carballo M.D. Measurements Intervals [place] Rate: 79 P: 32 KS: 155 QRS: -49 QRSD: 104 T: -41 QT: 408 QTc: 469 Interpretive Statements SINUS RHYTHM WITH FREQUENT VENTRICULAR PREMATURE COMPLEXES LEFT ANTERIOR FASCICULAR BLOCK [QRS AXIS <= -45, QR IN I, RS IN II] LEFT VENTRICULAR HYPERTROPHY AND ST-T CHANGE [VOLTAGE CRITERIA PLUS ST/T ABNORMALITY] Compared to ECG 02/15/2023 18:13:27 No significant changes Electronically Signed On 02-15-2023 23:20:58 PORTRAIT CONSULTANT by Elle Carballo M.D. [id number]
[2023-02-15 19:54] LABS: Troponin(5th) Baseline 69 ng/L (0-15)
--- NOTE | 2023-02-15 21:17 | ECG_ITS ---
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 Measurements Intervals [place] Rate: 95 P: 49 NM: 156 QRS: -21 QRSD: 82 T: 55 QT: 370 QTc: 466 Interpretive Statements SINUS RHYTHM POSSIBLE ANTERIOR MYOCARDIAL INFARCTION , PROBABLY OLD [30 ms Q WAVE IN V3/V4, OR R < 0.2 mV IN V4] Compared to ECG 02/15/2023 19:26:13 Myocardial infarct finding now present Ventricular premature complex(es) no longer present Left anterior fascicular block no longer present Left ventricular hypertrophy no longer present ST (T wave) deviation no longer present Electronically Signed On 05-14-2023 5:59:21 SUSTAINABLE PRODUCTS MARKETING MANAGER by Ben Rincon M.D. [id number]
[2023-02-15 21:52] LABS: Troponin 5 2HR 73.23 ng/L (0-15)
[2023-02-15 22:18] LABS: Troponin 5 2HR Delta 4.23 ABS# (0-10)
[2023-02-15] MEDS: doxycycline 100 mg Tablet PO (22:26)
== END 2023-02-15 23:19 | disposition home or self-care (01) ==
PROVIDERS: Emergency Provider Emergency Medicine; PCP Family Medicine Adult Medicine
DX: J44.0 Chronic obstructive pulmonary disease with (acute) lower respiratory infection (principal); J18.9 Pneumonia, unspecified organism; Z79.82 Long term (current) use of aspirin; Z11.52 Encounter for screening for COVID-19; Z87.891 Personal history of nicotine dependence; I25.10 Atherosclerotic heart disease of native coronary artery without angina pectoris; I50.9 Heart failure, unspecified; I13.2 Hypertensive heart and chronic kidney disease with heart failure and with stage 5 chronic kidney disease, or end stage renal disease; N18.6 End stage renal disease; Z99.2 Dependence on renal dialysis; Z86.19 Personal history of other infectious and parasitic diseases; E78.5 Hyperlipidemia, unspecified; I25.2 Old myocardial infarction
CPT/HCPCS: 36415; 71045; 80053; 83880; 84484; 85025; 87426; 87804; 93005; 94640; 99285; J7613

== ENCOUNTER 2023-04-19 19:24 | Emergency (ER) | payer MEDICARE, MEDICAID, SELFPAY ==
[2023-04-19] VITALS (7 sets, daily range): BP systolic 157–185; BP diastolic 81–132; PULSE 84–104; RESP 18–20; TEMP 36.7; O2SAT 94–98
--- NOTE | 2023-04-19 20:26 | W.ED.NECK ---
HPI - Neck Pain/Injury General: Chief Complaint: Neck Pain/Injury Stated Complaint: neck pain recent surgury grinding Time Seen by Provider: 04/19/23 19:50 History of Present Illness: Patient presents to the ER with worsening neck pain. Patient had surgery by Dr. Benitez at [facility] in November. Patient's been having symptoms for about the last month of something popping and grinding in his neck. Patient went back to Dr. Benitez who ordered a CT scan of his neck which patient had performed last week but has not got the results. Patient states he is taking tramadol for pain and is not working. Review of Systems General: Reports: 10 or more systems reviewed and unremarkable except in HPI and below PFSH ED PFSH: Medical History Chronic neck pain with history of cervical spinal surgery Hepatitis C antibody test positive Supplemental oxygen dependent CAD in [place] artery NSTEMI 10/2021 Constipation due to slow transit Lung nodule, solitary Former smoker Quit 2020 Pruritic dermatitis Chronic thickening of skin at right ankle with chronic excoriations ESRD (end stage renal disease) on dialysis NSTEMI (non-ST elevated myocardial infarction) Hypertension, essential Obstructive sleep apnea CHF exacerbation Combined D/S CHF COPD exacerbation Erectile dysfunction Anemia in chronic kidney disease (CKD) Elevated PSA BPH NOS w ur obs/LUTS Moderate pulmonary arterial systolic hypertension Mild aortic stenosis 12/07/2018: Mean gradient 4.6 mmHg, aortic valve area 2.2 cm? 10/02/21: No aortic stenosis Hyperlipidemia History of pulmonary embolism Surgical History Hx of shoulder surgery left Postoperative state H/O abdominal surgery hernia History of ankle surgery History of back surgery Family History Family/Other Cancer Mother Dementia Diabetes Sister Diabetes CAD (coronary artery disease) Father , AT AGE 78 Brain aneurysm Denies family history of Clotting disorder Hyperlipidemia Psychiatric illness Chronic kidney disease (CKD) Suicide Anesthesia complication Bleeding disorder Family history of premature coronary artery disease Lung disease Hypertension Stroke Social History Smoking and tobacco/nicotine status: former use of tobacco/nicotine Quit status (tobacco/nicotine): has quit using Year quit tobacco: 2020 Former quit date comment: 0.5 ppd X 15 years Alcohol intake: former Substance/Drug Use: never Marital status: Current occupational status: disabled Physical Exam Const: COMMON NORMALS: no acute distress, average body habitus, patient oriented x3, no limitations, healthy appearing, alert and well nourished HENMT: COMMON NORMALS: normocephalic, atraumatic, hearing grossly normal bilaterally, external ears normal, EAC's normal, Normal external nose present, moist oral mucous membranes and oropharynx normal HEAD & SCALP: normocephalic and atraumatic NOSE: Normal external nose present EXTERNAL EAR: Yes external ears normal EXTERNAL AUDITORY CANAL: EAC's normal Neck/C-Spine: COMMON NORMALS: no JVD OTHER: Patient has c-collar in place Chest: COMMONS NORMALS: normal inspection of the chest and normal palpation of entire chest wall Resp: COMMON NORMALS: normal respiratory effort, No retractions, No use of accessory muscles and clear to auscultation bilaterally AUSCULTATION: clear to auscultation bilaterally Cardio: COMMON NORMALS: no JVD, regular rate, regular rhythm, S1 normal heart sound present, S2 normal heart sound present, No gallops present (Cardio), No clicks present (Cardio), No murmurs present (Cardio) and No rub (Cardio) RATE: regular rate RHYTHM: regular rhythm HEART SOUNDS: S1 normal heart sound present and S2 normal heart sound present Neuro: COMMON NORMALS: patient oriented x3 SENSORIUM/ORIENTATION: Yes alert Course Vital Signs: Vital signs: Vital Signs Temperature 98.1 F 04/19/23 19:40 Pulse Rate 99 04/19/23 22:47 Respiratory Rate 20 H 04/19/23 22:47 Blood Pressure 176/103 04/19/23 22:47 Pulse Oximetry 97 04/19/23 22:47 Oxygen Delivery Me thod Room Air 04/19/23 19:40 MDM - Neck Pain/Injury Medical Decision Making We will attempt to get the patient CT scan from [place]. This was unsuccessful so we scanned patient's neck with a noncontrast CT scan. Results did not show any acute changes or hardware failure. Patient was given Linden 10 mg here in ER helped his pain patient be discharged home with a prescription of Linden and should follow back up with Dr. Benitez in [place] for further evaluation and treatment. Differential Diagnosis Likely disc disorder of cervical region and strain of neck muscle Medical Records I reviewed the patient's medical records. Lab Data I reviewed the patient's lab results. Radiology Impressions Cervical Spine CT 04/19/23 22:14 IMPRESSION: 1. Exam demonstrates findings of resection of the C3 through C5 vertebral bodies with strut graft and anterior posterior element hardware fixation. No convincing bony destructive change is evident. No findings of hardware failure. 2. Asymmetric prominence of the right parotid gland compared to the left is nonspecific without intravenous contrast. Correlate with physical exam. Ultrasound of the salivary glands could be performed on a nonemergent basis. All radiology interpretation(s) finalized by discharge Discharge Plan Discharge Patient Disposition: Home Clinical Impression: Neck pain Condition: Stable Prescriptions: No Action (DME) spacer for Albuterol inhaler See Rx Instructions .Route .MEDSUPPLY Qty: 1 0RF Rx Instructions: As directed (DME) Nebulizer & supplies See Rx Instructions .Route .MEDSUPPLY Qty: 1 1RF Rx Instructions: As directed lidocaine 4 % cream 1 applic topical BID PRN (Reason: pain) Qty: 30 1RF Rx Instructions: for use with dialysis (DME) home oxygen 2L/min 2 L/min flow See Rx Instructions .Route .MEDSUPPLY Qty: 1 0RF Rx Instructions: As directed clobetasol 0.05 % ointment 1 applic topical BID 14 Days Qty: 45 1RF Rx Instructions: Apply to affected area no more than 2 weeks per month, not for face or skin folds zolpidem [Ambien] 10 mg tablet 10 mg PO .q hs PRN (Reason: sleep) Qty: 30 3RF Rx Instructions: Tried to take only one every other night tramadol 50 mg tablet 50 mg PO BID PRN (Reason: pain) Qty: 60 0RF (DME) Cane See Rx Instructions .Route .MEDSUPPLY Qty: 1 0RF Rx Instructions: As directed hydrocodone-acetaminophen 5-325 mg tablet 1 tab PO BID PRN (Reason: moderate pain) 30 Days Qty: 60 0RF aspirin 81 mg tablet,delayed release (DR/EC) 81 mg PO DAILY Qty: 90 3RF albuterol sulfate 2.5 mg /3 mL (0.083 %) solution for nebulization 2.5 mg INHALATION QID PRN (Reason: Shortness Of Breath) Qty: 180 5RF atorvastatin 20 mg tablet 20 mg PO DAILY Qty: 90 0RF calcium acetate(phosphat bind) 667 mg capsule 1,334 mg PO TID Qty: 540 3RF carvedilol 25 mg tablet 25 mg PO BID 30 Days Qty: 180 0RF Rx Instructions: must administer with a meal/food docusate sodium 250 mg capsule 250 mg PO DAILY PRN (Reason: Constipation) Qty: 90 3RF fluticasone propion-salmeterol [Advair Diskus] 250-50 mcg/dose blister with device 1 inh inhalation BID Qty: 60 3RF fluticasone propionate [Flonase Allergy Relief] 50 mcg/actuation spray,suspension 1 spray intranasal BID 30 Days Qty: 16 4RF Rx Instructions: administer into each nostril hydralazine 50 mg tablet 75 mg PO TID Qty: 405 3RF Combivent Respimat 20-100 mcg/actuation mist 1 puff inhalation Q4H PRN (Reason: wheezing) 30 Days Qty: 4 4RF Reglan 10 mg tablet 10 mg PO BID PRN (Reason: Nausea) Qty: 180 2RF mirtazapine [Remeron] 15 mg tablet 15 mg PO .qhs Qty: 90 0RF RenaPlex-D 800 mcg-12.5 mg -2,000 unit tablet 1 tab PO DAILY Qty: 90 3RF amlodipine 2.5 mg tablet 2.5 mg PO DAILY Qty: 90 0RF albuterol sulfate [ProAir HFA] 90 mcg/actuation HFA aerosol inhaler 2 puff INHALATION Q6H PRN (Reason: Shortness Of Breath) Qty: 8.5 0RF Rx Instructions: NEEDS APPT PRIOR TO FURTHER REFILLS nitroglycerin [Nitrostat] 0.4 mg tablet, sublingual 0.4 mg SUBLINGUAL Q5M PRN (Reason: Chest Pain) 30 Days Qty: 30 0RF furosemide 40 mg tablet 40 mg PO BID ondansetron 4 mg tablet,disintegrating 4 mg PO Q8H PRN (Reason: nausea and vomiting) Qty: 12 0RF Discharge Orders: Discharge ED (Routine); Ordered 04/19/23 Ordered By: Sorin Kat Referrals: Kian Colon MD [Primary Care Provider] - 1 week Patient Instructions: Opioid Safety, Pain Management Activity Restrictions/Additional Instructions: Please follow back up with Dr. Benitez for further evaluation and treatment of your neck pain. Coding Level of Care Code ED Battery Plate Remover for Ramana Pillai
[2023-04-19] MEDS: HYDROcodone-acetaminophen 10-325 mg Tablet 1 TAB PO (20:36)
--- NOTE | 2023-04-19 22:14 | CTR_ITS ---
PROCEDURE INFORMATION: Exam: CT Cervical Spine Without Contrast Exam date and time: 04/19/2023 10:26 PM Age: 67 years old Clinical indication: Neck pain; Prior surgery; Surgery date: 1-6 months; Surgery type: Patient had surgery back in November due to an infection that was eating his bone. Patient says he has been in alot of pain over the past month. ; Additional info: Neck pain, fall, HX of surgery, grinding in neck TECHNIQUE: Imaging protocol: Computed tomography of the cervical spine without contrast. Radiation optimization: All CT scans at this facility use at least one of these dose optimization techniques: automated exposure control; mA and/or kV adjustment per patient size (includes targeted exams where dose is matched to clinical indication); or iterative reconstruction. COMPARISON: No relevant prior studies available. RADIATION DOSE METRICS: Total DLP (mGy-cm): 211.37 FINDINGS: Bones/joints: There has been prior corpectomy of C3, C4, and C5 with placement of a long segment strut graft, and stabilized with anterior and posterior element hardware. Anterior hardware spans C2-C6. Posterior element hardware spans C2 to T1. Extensive posterior element bone graft noted. No ongoing bony destructive change is evident. There are no findings of hardware failure. Pharynx: Normal fossa of [place]. Larynx: Normal epiglottis. Prevertebral and retropharyngeal spaces: No prevertebral soft tissue swelling. Salivary glands: Prominent right parotid without visible mass on this noncontrast exam. Lungs: Lung apices are normal. Thyroid: Mildly heterogeneous thyroid without discrete mass. Soft tissues: Unremarkable. CT/CT cervical spin wo con* [id number] IMPRESSION: 1. Exam demonstrates findings of resection of the C3 through C5 vertebral bodies with strut graft and anterior posterior element hardware fixation. No convincing bony destructive change is evident. No findings of hardware failure. 2. Asymmetric prominence of the right parotid gland compared to the left is nonspecific without intravenous contrast. Correlate with physical exam. Ultrasound of the salivary glands could be performed on a nonemergent basis.
== END 2023-04-19 23:40 | disposition home or self-care (01) ==
PROVIDERS: Emergency Provider Emergency Medicine; PCP Family Medicine Adult Medicine
DX: M54.2 Cervicalgia (principal); Z98.1 Arthrodesis status
CPT/HCPCS: 72125; 99284

== ENCOUNTER 2023-06-08 19:14 | Emergency (ER) | payer MEDICARE, MEDICAID, SELFPAY ==
[2023-06-08 19:15] VITALS: BP 171/119; PULSE 87; RESP 16; TEMP 36.8; O2SAT 97
--- NOTE | 2023-06-08 19:33 | XRR_ITS ---
PROCEDURE INFORMATION: Exam: XR Chest Exam date and time: 06/08/2023 8:31 PM Age: 68 years old Clinical indication: Condition or disease; Other: Covid; Dyspnea; Additional info: Dyspnea covid positive TECHNIQUE: Imaging protocol: Radiologic exam of the chest. Views: 1 view. COMPARISON: CR XR chest 1V portable [id number] 02/15/2023 7:04 PM FINDINGS: Lungs: Right upper lobe probable atelectasis versus mild pleural scarring. Right lower lobe atelectasis versus minimal infiltrate. Pleural spaces: Unremarkable. No pleural effusion. No pneumothorax. Heart/Mediastinum: Cardiomegaly. Bones/joints: Unremarkable. XR/XR chest 1V portable [id number] IMPRESSION: 1. Right upper lobe probable atelectasis versus mild pleural scarring, appears crown. 2. Cardiomegaly. 3. Right lower lobe atelectasis versus minimal infiltrate.
--- NOTE | 2023-06-08 19:35 | W.ED.SOB ---
HPI - SOB/Dyspnea General: Chief Complaint: Shortness of Breath/Dyspnea Stated Complaint: sob, positive covid test Time Seen by Provider: 06/08/23 19:27 History of Present Illness: HPI Narrative: Patient presents to the ER with complaints of worsening shortness of breath. Patient did get diagnosed with COVID recently and is currently on day 3 postdiagnosis. Patient said before this he has no problems breathing but now is going downhill. Patient is a dialysis patient and gets dialysis on Wednesdays and Fridays, per review of the patient's history he is a diagnosis of COPD on multiple breathing medicines as well as oxygen, former smoker, sleep apnea, CHF patient denies any fevers chills nausea vomiting diarrhea constipation. Upon arrival to the ER patient's O2 saturation is 97% on room air. Review of Systems General: Reports: 10 or more systems reviewed and unremarkable except in HPI and below PFSH ED PFSH: Medical History Chronic neck pain with history of cervical spinal surgery Hepatitis C antibody test positive Supplemental oxygen dependent CAD in [place] artery NSTEMI 10/2021 Constipation due to slow transit Lung nodule, solitary Former smoker Quit 2020 Pruritic dermatitis Chronic thickening of skin at right ankle with chronic excoriations ESRD (end stage renal disease) on dialysis NSTEMI (non-ST elevated myocardial infarction) Hypertension, essential Obstructive sleep apnea CHF exacerbation Combined D/S CHF COPD exacerbation Erectile dysfunction Anemia in chronic kidney disease (CKD) Elevated PSA BPH NOS w ur obs/LUTS Moderate pulmonary arterial systolic hypertension Mild aortic stenosis 12/07/2018: Mean gradient 4.6 mmHg, aortic valve area 2.2 cm? 10/02/21: No aortic stenosis Hyperlipidemia History of pulmonary embolism Surgical History Hx of shoulder surgery left Postoperative state H/O abdominal surgery hernia History of ankle surgery History of back surgery Family History Family/Other Cancer Mother Dementia Diabetes Sister Diabetes CAD (coronary artery disease) Father , AT AGE 78 Brain aneurysm Denies family history of Clotting disorder Hyperlipidemia Psychiatric illness Chronic kidney disease (CKD) Suicide Anesthesia complication Bleeding disorder Family history of premature coronary artery disease Lung disease Hypertension Stroke Social History Smoking and tobacco/nicotine status: former use of tobacco/nicotine Quit status (tobacco/nicotine): has quit using Year quit tobacco: 2020 Former quit date comment: 0.5 ppd X 15 years Alcohol intake: former Substance/Drug Use: never Marital status: Current occupational status: disabled Physical Exam Const: COMMON NORMALS: no acute distress, average body habitus, patient oriented x3, no limitations, healthy appearing, alert and well nourished Neck/C-Spine: COMMON NORMALS: no JVD Chest: COMMONS NORMALS: normal inspection of the chest and normal palpation of entire chest wall Resp: COMMON NORMALS: normal respiratory effort, No retractions, No use of accessory muscles and clear to auscultation bilaterally AUSCULTATION: clear to auscultation bilaterally Cardio: COMMON NORMALS: no JVD, regular rate, regular rhythm, S1 normal heart sound present, S2 normal heart sound present, No gallops present (Cardio), No clicks present (Cardio), No murmurs present (Cardio) and No rub (Cardio) RATE: regular rate RHYTHM: regular rhythm HEART SOUNDS: S1 normal heart sound present and S2 normal heart sound present GI: COMMON NORMALS: Normal to inspection, nondistended, normoactive bowel sounds present, Soft to palpation, non-tender and No hepatosplenomegaly present PALPATION: Yes Soft to palpation and Yes No hepatosplenomegaly present Neuro: COMMON NORMALS: patient oriented x3 SENSORIUM/ORIENTATION: Yes alert Course Vital Signs: Vital signs: Vital Signs Temperature 98.3 F 06/08/23 19:15 Pulse Rate 104 H 06/08/23 21:48 Respiratory Rate 18 06/08/23 21:48 Blood Pressure 173/115 06/08/23 21:48 Pulse Oximetry 94 06/08/23 21:48 Oxygen Delivery Me thod Room Air 06/08/23 20:10 MDM - SOB/Dyspnea Medical Decision Making Physical exam was performed lab work was obtained which was essentially benign, chest x-ray was obtained which showed right upper lobe atelectasis versus scarring, cardiomegaly, right lower lobe atelectasis versus minimal infiltrate. Patient is COVID-positive. Patient did keep his oxygen saturation adequate on room air. Patient was given 10 mg Decadron IM. Azithromycin in ER. Patient be discharged home on prescription for azithromycin to cover if this is the pneumonia. Lab Data 06/08/23 19:48 06/08/23 19:48 Labs/Radiology: Radiology Impressions Chest X-Ray 06/08/23 19:33 IMPRESSION: 1. Right upper lobe probable atelectasis versus mild pleural scarring, appears crown. 2. Cardiomegaly. 3. Right lower lobe atelectasis versus minimal infiltrate. Laboratory Results WBC 4.62 10^3/uL (3.29-11.43) 06/08/23 19:48 RBC 3.64 10^6/uL (3.85-5.65) L 06/08/23 19:48 Hgb 11.90 g/dL (11.27-16.99) 06/08/23 19:48 Hct 35.6 % (37-53) L 06/08/23 19:48 MCV 97.8 fl (82-101) 06/08/23 19:48 MCH 32.7 pg (27-33) 06/08/23 19:48 MCHC 33.4 g/dL (30-55) 06/08/23 19:48 RDW 14.1 % (12.1-15.1) 06/08/23 19:48 Plt Count 146 10^3/cmm (157-399) L 06/08/23 19:48 MPV 10.2 fL (7.4-10.4) 06/08/23 19:48 Neut % (Auto) 72.2 % 06/08/23 19:48 Lymph % (Auto) 9.5 % 06/08/23 19:48 [place] % (Auto) 13.6 % 06/08/23 19:48 Eos % (Auto) 3.9 % 06/08/23 19:48 Baso % (Auto) 0.6 % 06/08/23 19:48 Neut # (Auto) 3.33 10^3/uL (1.8-7.7) 06/08/23 19:48 Lymph # (Auto) 0.4 10^3/uL (0.8-4.8) L 06/08/23 19:48 [place] # (Auto) 0.6 10^3/uL (0.2-0.9) 06/08/23 19:48 Eos # (Auto) 0.2 10^3/uL (0.0-0.8) 06/08/23 19:48 Baso # (Auto) 0.0 10^3/uL (0.0-0.1) 06/08/23 19:48 Nucleated RBC % (auto) 0 % 06/08/23 19:48 Nucleated RBCs # 0.0 /100WBC 06/08/23 19:48 Sodium 139 mmol/L (136-145) 06/08/23 19:48 Potassium 3.5 mmol/L (3.5-5.1) 06/08/23 19:48 Chloride 95 mmol/L (98-107) L 06/08/23 19:48 Carbon Dioxide 34 mmol/L (22-29) H 06/08/23 19:48 Anion Gap 13.5 (5-19) 06/08/23 19:48 BUN 14 mg/dL (8-23) 06/08/23 19:48 Creatinine 3.6 mg/dL (0.7-1.2) H 06/08/23 19:48 GFR Calculation 20.5 mL/min (90-130) L 06/08/23 19:48 Glucose 83 mg/dL (65-115) 06/08/23 19:48 Calculated Osmolality 288 mOsm/kg (285-295) 06/08/23 19:48 Calcium 8.2 mg/dL (8.5-10.5) L 06/08/23 19:48 Total Bilirubin 0.6 mg/dL (0.15-1.2) 06/08/23 19:48 AST 43 U/L (0-40) H 06/08/23 19:48 ALT 21 U/L (0-41) 06/08/23 19:48 Alkaline Phosphatase 105 U/L (40-130) 06/08/23 19:48 Total Protein 7.7 g/dL (6.6-8.7) 06/08/23 19:48 Albumin 3.9 g/dL (3.5-5.2) 06/08/23 19:48 Globulin 3.8 g/dL (1.3-4.6) 06/08/23 19:48 All radiology interpretation(s) finalized by discharge Discharge Plan Discharge Patient Disposition: Home Clinical Impression: COVID Condition: Stable Prescriptions: New azithromycin 250 mg tablet 250 mg PO DAILY 4 Days Qty: 4 0RF Rx Instructions: start on day 2 of therapy No Action (DME) spacer for Albuterol inhaler See Rx Instructions .Route .MEDSUPPLY Qty: 1 0RF Rx Instructions: As directed (DME) Nebulizer & supplies See Rx Instructions .Route .MEDSUPPLY Qty: 1 1RF Rx Instructions: As directed lidocaine 4 % cream 1 applic topical BID PRN (Reason: pain) Qty: 30 1RF Rx Instructions: for use with dialysis (DME) home oxygen 2L/min 2 L/min flow See Rx Instructions .Route .MEDSUPPLY Qty: 1 0RF Rx Instructions: As directed zolpidem [Ambien] 10 mg tablet 10 mg PO .q hs PRN (Reason: sleep) Qty: 30 3RF Rx Instructions: Tried to take only one every other night tramadol 50 mg tablet 50 mg PO BID PRN (Reason: pain) Qty: 60 0RF (DME) Cane See Rx Instructions .Route .MEDSUPPLY Qty: 1 0RF Rx Instructions: As directed hydrocodone-acetaminophen 5-325 mg tablet 1 tab PO BID PRN (Reason: moderate pain) 30 Days Qty: 60 0RF aspirin 81 mg tablet,delayed release (DR/EC) 81 mg PO DAILY Qty: 90 3RF albuterol sulfate 2.5 mg /3 mL (0.083 %) solution for nebulization 2.5 mg INHALATION QID PRN (Reason: Shortness Of Breath) Qty: 180 5RF atorvastatin 20 mg tablet 20 mg PO DAILY Qty: 90 0RF calcium acetate(phosphat bind) 667 mg capsule 1,334 mg PO TID Qty: 540 3RF carvedilol 25 mg tablet 25 mg PO BID 30 Days Qty: 180 0RF Rx Instructions: must administer with a meal/food docusate sodium 250 mg capsule 250 mg PO DAILY PRN (Reason: Constipation) Qty: 90 3RF fluticasone propion-salmeterol [Advair Diskus] 250-50 mcg/dose blister with device 1 inh inhalation BID Qty: 60 3RF fluticasone propionate [Flonase Allergy Relief] 50 mcg/actuation spray,suspension 1 spray intranasal BID 30 Days Qty: 16 4RF Rx Instructions: administer into each nostril hydralazine 50 mg tablet 75 mg PO TID Qty: 405 3RF Combivent Respimat 20-100 mcg/actuation mist 1 puff inhalation Q4H PRN (Reason: wheezing) 30 Days Qty: 4 4RF Reglan 10 mg tablet 10 mg PO BID PRN (Reason: Nausea) Qty: 180 2RF mirtazapine [Remeron] 15 mg tablet 15 mg PO .qhs Qty: 90 0RF RenaPlex-D 800 mcg-12.5 mg -2,000 unit tablet 1 tab PO DAILY Qty: 90 3RF amlodipine 2.5 mg tablet 2.5 mg PO DAILY Qty: 90 0RF albuterol sulfate [ProAir HFA] 90 mcg/actuation HFA aerosol inhaler 2 puff INHALATION Q6H PRN (Reason: Shortness Of Breath) Qty: 8.5 0RF Rx Instructions: NEEDS APPT PRIOR TO FURTHER REFILLS clobetasol 0.05 % ointment 1 applic topical BID 14 Days Qty: 45 1RF Rx Instructions: Apply to affected area no more than 2 weeks per month, not for face or skin folds nitroglycerin [Nitrostat] 0.4 mg tablet, sublingual 0.4 mg SUBLINGUAL Q5M PRN (Reason: Chest Pain) 30 Days Qty: 30 0RF furosemide 40 mg tablet 40 mg PO BID hydrocodone-acetaminophen 5-325 mg tablet 1 tab PO Q8H PRN (Reason: pain) Qty: 7 0RF ondansetron 4 mg tablet,disintegrating 4 mg PO Q8H PRN (Reason: nausea and vomiting) Qty: 12 0RF Discharge Orders: Discharge ED (Routine); Ordered 06/08/23 Ordered By: Sorin Kat Referrals: Kian Colon MD [Primary Care Provider] - 1 week Patient Instructions: COVID-19 (Coronavirus Disease 2019) (ED) Activity Restrictions/Additional Instructions: Your x-ray performed in the ER showed you may have a touch of pneumonia. This may be viral pneumonia since you are COVID-positive however we will go ahead and put you on antibiotics to coverage if this is a bacterial in nature. You are given a steroid shot in the ER this should help your breathing. Coding Level of Care Code ED Air Conditioning Specialist for Ramana Pillai
[2023-06-08] MEDS: dexamethasone 10 mg/mL INJ IM (19:43)
[2023-06-08 19:58] LABS: Basophils % 0.6 %; Eosinophils # 0.2 10^3/uL (0.0-0.8); Eosinophils % 3.9 %; Hematocrit 35.6 % (37-53); Lymphocytes # 0.4 10^3/uL (0.8-4.8); Lymphocytes % 9.5 %; Mean Corpuscular HGB Conc 33.4 g/dL (30-55); Mean Corpuscular Hemoglobin 32.7 pg (27-33); Mean Corpuscular Volume 97.8 fl (82-101); Mean Platelet Volume 10.2 fL (7.4-10.4); Monocytes # 0.6 10^3/uL (0.2-0.9); Monocytes % 13.6 %; Neutrophils # 3.33 10^3/uL (1.8-7.7); Neutrophils % 72.2 %; Nucleated Red Blood Cells % 0 %; Platelet Count 146 10^3/cmm (157-399); Red Blood Count 3.64 10^6/uL (3.85-5.65); Red Cell Distribution Width 14.1 % (12.1-15.1); White Blood Count 4.62 10^3/uL (3.29-11.43)
[2023-06-08 20:10] VITALS: BP 154/102; PULSE 117; RESP 18; O2SAT 93
[2023-06-08 20:27] LABS: Alanine Aminotransferase 21 U/L (0-41); Albumin Level 3.9 g/dL (3.5-5.2); Alkaline Phosphatase 105 U/L (40-130); Anion Gap 13.5 (5-19); Aspartate Amino Transferase 43 U/L (0-40); Blood Urea Nitrogen 14 mg/dL (8-23); Calcium 8.2 mg/dL (8.5-10.5); Carbon Dioxide 34 mmol/L (22-29); Chloride 95 mmol/L (98-107); Creatinine Clr Calc Pharmacy 18.9599; Globulin 3.8 g/dL (1.3-4.6); Glomerular Filtration Rate 20.5 mL/min (90-130); Glucose 83 mg/dL (65-115); Osmolality Calculated 288 mOsm/kg (285-295); Potassium 3.5 mmol/L (3.5-5.1); Sodium 139 mmol/L (136-145); Total Bilirubin 0.6 mg/dL (0.15-1.2); Total Protein 7.7 g/dL (6.6-8.7)
[2023-06-08 21:21] VITALS: BP 162/80; PULSE 103; O2SAT 90
[2023-06-08] MEDS: azithromycin 250 mg Tablet 500 MG PO (21:42)
[2023-06-08 21:48] VITALS: BP 173/115; PULSE 104; RESP 18; O2SAT 94
== END 2023-06-08 21:50 | disposition home or self-care (01) ==
PROVIDERS: Emergency Provider Emergency Medicine; PCP Family Medicine Adult Medicine
DX: U07.1 COVID-19 (principal); Z79.82 Long term (current) use of aspirin; Z87.891 Personal history of nicotine dependence; Z86.19 Personal history of other infectious and parasitic diseases; I25.10 Atherosclerotic heart disease of native coronary artery without angina pectoris; I13.2 Hypertensive heart and chronic kidney disease with heart failure and with stage 5 chronic kidney disease, or end stage renal disease; N18.6 End stage renal disease; I50.9 Heart failure, unspecified; I25.2 Old myocardial infarction; J44.9 Chronic obstructive pulmonary disease, unspecified; E78.5 Hyperlipidemia, unspecified
CPT/HCPCS: 71045; 80053; 85025; 96372; 99284; J1100; Q0144

== ENCOUNTER 2023-08-08 19:23 | Emergency (ER) | payer MEDICARE, MEDICAID, SELFPAY ==
[2023-08-08 19:24] VITALS: BP 159/107; PULSE 91; RESP 20; TEMP 36.2; O2SAT 97
[2023-08-08 19:45] VITALS: RESP 18
[2023-08-08] MEDS: oxyCODONE 5 mg IR Tab/Cap 10 MG PO (19:45)
--- NOTE | 2023-08-08 19:55 | W.ED.BACK ---
HPI - Back Pain/Injury General: Chief Complaint: Back Pain/Injury Stated Complaint: back pain Time Seen by Provider: 08/08/23 19:24 History of Present Illness: Patient presents from dialysis by ambulance with back pain. He says that the custodial nurses pulled his PICC line has been getting antibiotics for osteomyelitis. He says the medicines he is getting at the custodial are not helping. We spoke with the custodial and they say he is receiving medications for back pain and they were informed that he was coming here from there. He is receiving IM antibiotics at this time and is scheduled to have a PICC line put back in. No saddle numbness, no urinary retention or incontinence, no focal motor deficit, no sensory deficit. no recent fever. no cough. no shortness of breath. no chest pain. no abdominal pain. no nausea or vomiting. no dysuria. no altered mental status. no edema. Review of Systems Narrative: Constitutional symptoms: Negative except as documented in HPI. Skin symptoms: Negative except as documented in HPI. Eye symptoms: Negative except as documented in HPI. ENMT symptoms: Negative except as documented in HPI. Respiratory symptoms: Negative except as documented in HPI. Cardiovascular symptoms: Negative except as documented in HPI. Gastrointestinal symptoms: Negative except as documented in HPI. Genitourinary symptoms: Negative except as documented in HPI. Musculoskeletal symptoms: Negative except as documented in HPI. Neurologic symptoms: Negative except as documented in HPI. Psychiatric symptoms: Negative except as documented in HPI. Endocrine symptoms: Negative except as documented in HPI. PFSH ED PFSH: Medical History Chronic neck pain with history of cervical spinal surgery Hepatitis C antibody test positive Supplemental oxygen dependent CAD in [place] artery NSTEMI 10/2021 Constipation due to slow transit Lung nodule, solitary Former smoker Quit 2020 Pruritic dermatitis Chronic thickening of skin at right ankle with chronic excoriations ESRD (end stage renal disease) on dialysis NSTEMI (non-ST elevated myocardial infarction) Hypertension, essential Obstructive sleep apnea CHF exacerbation Combined D/S CHF COPD exacerbation Erectile dysfunction Anemia in chronic kidney disease (CKD) Elevated PSA BPH NOS w ur obs/LUTS Moderate pulmonary arterial systolic hypertension Mild aortic stenosis 12/07/2018: Mean gradient 4.6 mmHg, aortic valve area 2.2 cm? 10/02/21: No aortic stenosis Hyperlipidemia History of pulmonary embolism Surgical History Hx of shoulder surgery left Postoperative state H/O abdominal surgery hernia History of ankle surgery History of back surgery Family History Family/Other Cancer Mother Dementia Diabetes Sister Diabetes CAD (coronary artery disease) Father , AT AGE 78 Brain aneurysm Denies family history of Clotting disorder Hyperlipidemia Psychiatric illness Chronic kidney disease (CKD) Suicide Anesthesia complication Bleeding disorder Family history of premature coronary artery disease Lung disease Hypertension Stroke Social History Smoking and tobacco/nicotine status: former use of tobacco/nicotine Quit status (tobacco/nicotine): has quit using Year quit tobacco: 2020 Former quit date comment: 0.5 ppd X 15 years Alcohol intake: former Substance/Drug Use: never Marital status: Current occupational status: disabled Physical Exam Narrative: EXAM NARRATIVE: General: Alert, no acute distress. Skin: warm and dry Head: Normocephalic Neck: Trachea midline Eye: Extraocular movements are intact. Ears, nose, mouth and throat: Oral mucosa moist Respiratory: Respirations are non-labored Musculoskeletal: Normal ROM Neurological: Alert and oriented, No focal neurological deficit observed. Psychiatric: Cooperative, appropriate mood & affect. Course Vital Signs: Vital signs: Vital Signs Temperature 97.1 F L 08/08/23 19:24 Pulse Rate 91 08/08/23 19:24 Respiratory Rate 18 08/08/23 19:45 Blood Pressure 159/107 08/08/23 19:24 Pulse Oximetry 97 08/08/23 19:24 MDM - Back Pain/Injury Medical Decision Making Patient is given an oxycodone here and then after discussing the patient with the custodial no other workup apparently needs to be done. Assessment and plan: - Discharged home - Discussed plan with patient. Answered any questions. - Evaluation and treatment of this problem were appropriate in the emergency setting. No radiology studies performed this visit Discharge Plan Discharge Patient Disposition: Home Clinical Impression: Chronic back pain Condition: Stable Prescriptions: No Action (DME) spacer for Albuterol inhaler See Rx Instructions .Route .MEDSUPPLY Qty: 1 0RF Rx Instructions: As directed (DME) Nebulizer & supplies See Rx Instructions .Route .MEDSUPPLY Qty: 1 1RF Rx Instructions: As directed lidocaine 4 % cream 1 applic topical BID PRN (Reason: pain) Qty: 30 1RF Rx Instructions: for use with dialysis (DME) home oxygen 2L/min 2 L/min flow See Rx Instructions .Route .MEDSUPPLY Qty: 1 0RF Rx Instructions: As directed zolpidem [Ambien] 10 mg tablet 10 mg PO .q hs PRN (Reason: sleep) Qty: 30 3RF Rx Instructions: Tried to take only one every other night (DME) Cane See Rx Instructions .Route .MEDSUPPLY Qty: 1 0RF Rx Instructions: As directed aspirin 81 mg tablet,delayed release (DR/EC) 81 mg PO DAILY Qty: 90 3RF albuterol sulfate 2.5 mg /3 mL (0.083 %) solution for nebulization 2.5 mg INHALATION QID PRN (Reason: Shortness Of Breath) Qty: 180 5RF atorvastatin 20 mg tablet 20 mg PO DAILY Qty: 90 0RF calcium acetate(phosphat bind) 667 mg capsule 1,334 mg PO TID Qty: 540 3RF carvedilol 25 mg tablet 25 mg PO BID 30 Days Qty: 180 0RF Rx Instructions: must administer with a meal/food docusate sodium 250 mg capsule 250 mg PO DAILY PRN (Reason: Constipation) Qty: 90 3RF fluticasone propion-salmeterol [Advair Diskus] 250-50 mcg/dose blister with device 1 inh inhalation BID Qty: 60 3RF fluticasone propionate [Flonase Allergy Relief] 50 mcg/actuation spray,suspension 1 spray intranasal BID 30 Days Qty: 16 4RF Rx Instructions: administer into each nostril hydralazine 50 mg tablet 75 mg PO TID Qty: 405 3RF Combivent Respimat 20-100 mcg/actuation mist 1 puff inhalation Q4H PRN (Reason: wheezing) 30 Days Qty: 4 4RF Reglan 10 mg tablet 10 mg PO BID PRN (Reason: Nausea) Qty: 180 2RF mirtazapine [Remeron] 15 mg tablet 15 mg PO .qhs Qty: 90 0RF RenaPlex-D 800 mcg-12.5 mg -2,000 unit tablet 1 tab PO DAILY Qty: 90 3RF amlodipine 2.5 mg tablet 2.5 mg PO DAILY Qty: 90 0RF albuterol sulfate [ProAir HFA] 90 mcg/actuation HFA aerosol inhaler 2 puff INHALATION Q6H PRN (Reason: Shortness Of Breath) Qty: 8.5 0RF Rx Instructions: NEEDS APPT PRIOR TO FURTHER REFILLS clobetasol 0.05 % ointment 1 applic topical BID 14 Days Qty: 45 1RF Rx Instructions: Apply to affected area no more than 2 weeks per month, not for face or skin folds (DME) Walker See Rx Instructions .Route .MEDSUPPLY Qty: 1 0RF Rx Instructions: As directed clonazepam 0.5 mg tablet 0.25 mg PO BID Qty: 60 2RF (DME) Wheel Chair, medium See Rx Instructions .Route .MEDSUPPLY Qty: 1 0RF Rx Instructions: As directed tramadol 100 mg tablet 100 mg PO BID PRN (Reason: pain) Qty: 60 0RF nitroglycerin [Nitrostat] 0.4 mg tablet, sublingual 0.4 mg SUBLINGUAL Q5M PRN (Reason: Chest Pain) 30 Days Qty: 30 0RF furosemide 40 mg tablet 40 mg PO BID ondansetron 4 mg tablet,disintegrating 4 mg PO Q8H PRN (Reason: nausea and vomiting) Qty: 12 0RF Discharge Orders: Discharge ED (Routine); Ordered 08/08/23 Ordered By: Gilda Red Referrals: Kian Colon MD [Primary Care Provider] - Discharge Diet: Usual diet Discharge Activity: Resume usual activity Patient Instructions: Opioid Safety, Pain Management Coding Level of Care Code ED Gum Dipper for Ramana Pillai
[2023-08-08 20:32] VITALS: BP 152/81; PULSE 83; O2SAT 96
[2023-08-08 22:57] VITALS: BP 167/86; PULSE 87; O2SAT 94
== END 2023-08-08 23:00 | disposition home or self-care (01) ==
PROVIDERS: Emergency Provider Emergency Medicine; PCP Family Medicine Adult Medicine
DX: G89.29 Other chronic pain (principal); M54.9 Dorsalgia, unspecified; Z79.82 Long term (current) use of aspirin; Z87.891 Personal history of nicotine dependence; I13.2 Hypertensive heart and chronic kidney disease with heart failure and with stage 5 chronic kidney disease, or end stage renal disease; N18.6 End stage renal disease; I50.9 Heart failure, unspecified; Z99.2 Dependence on renal dialysis; Z86.19 Personal history of other infectious and parasitic diseases; I25.10 Atherosclerotic heart disease of native coronary artery without angina pectoris; I25.2 Old myocardial infarction; J44.9 Chronic obstructive pulmonary disease, unspecified; E78.5 Hyperlipidemia, unspecified
CPT/HCPCS: 99283

== ENCOUNTER 2023-11-26 19:21 | Emergency (ER) | payer MEDICARE, MEDICAID, SELFPAY ==
[2023-11-26] VITALS (8 sets, daily range): BP systolic 178–183; BP diastolic 101–107; PULSE 72–97; RESP 18–24; TEMP 36.7; O2SAT 91–97
--- NOTE | 2023-11-26 19:27 | XRR_ITS ---
PROCEDURE INFORMATION: Exam: XR Chest Exam date and time: 11/26/2023 7:50 PM Age: 68 years old Clinical indication: Shortness of breath; Patient HX: SOB; Lower back pain; Osteomyelitis TECHNIQUE: Imaging protocol: Radiologic exam of the chest. Views: 1 view. COMPARISON: CR XR chest 1V portable [id number] 06/08/2023 8:31 PM FINDINGS: Lungs: Hazy opacities of the right lower lung concerning for infectious or inflammatory etiology. Chronic scarring of the right midlung. Pleural spaces: Unremarkable. No pleural effusion. No pneumothorax. Heart/Mediastinum: Unremarkable. No cardiomegaly. Bones/joints: Cervical fusion hardware. Chronic right rib fractures. XR/XR chest 1V portable [id number] IMPRESSION: Hazy opacities of the right lower lung concerning for infectious or inflammatory etiology.
--- NOTE | 2023-11-26 19:27 | ECG_ITS ---
[facility] Test Date: 2023-11-26 Pat Name: Fredy Hammonds Department: Room: Gender: Male Building Specialist: : 1955 Requested By: Gilda Joseph Order Number: [id number] Acuña MD: Elle Carballo M.D. Measurements Intervals [place] Rate: 91 P: 0 IA: 0 QRS: -56 QRSD: 120 T: 103 QT: 397 QTc: 490 Interpretive Statements ATRIAL FIBRILLATION LEFT AXIS DEVIATION [QRS AXIS < -30] POSSIBLE LEFT VENTRICULAR HYPERTROPHY [VOLTAGE CRITERIA PLUS LAE OR QRS WIDENING] ST DEVIATION AND MODERATE T-WAVE ABNORMALITY, CONSIDER LATERAL ISCHEMIA [-0.1+ mV T-WAVE IN I/aVL/V5/V6] Compared to ECG 05/13/2023 23:48:55 Left-axis deviation now present T-wave abnormality now present Possible ischemia now present Sinus rhythm no longer present Myocardial infarct finding no longer present Electronically Signed On 11-27-2023 20:32:38 CDT by Elle Carballo M.D. [email or web address]
[2023-11-26 19:47] LABS: Basophils % 0.5 %; Eosinophils % 0.4 %; Hematocrit 37.9 % (37-53); Lymphocytes # 1.2 10^3/uL (0.8-4.8); Lymphocytes % 15.5 %; Mean Corpuscular HGB Conc 32.7 g/dL (30-55); Mean Corpuscular Hemoglobin 32.9 pg (27-33); Mean Corpuscular Volume 100.5 fl (82-101); Mean Platelet Volume 11.4 fL (7.4-10.4); Monocytes # 0.8 10^3/uL (0.2-0.9); Monocytes % 9.6 %; Neutrophils # 5.92 10^3/uL (1.8-7.7); Neutrophils % 73.8 %; Nucleated Red Blood Cells % 0 %; Platelet Count 148 10^3/cmm (157-399); Red Blood Count 3.77 10^6/uL (3.85-5.65); Red Cell Distribution Width 13.7 % (12.1-15.1); White Blood Count 8.02 10^3/uL (3.29-11.43)
--- NOTE | 2023-11-26 19:47 | ED_ITS ---
HPI - SOB/Dyspnea 2 General: Chief Complaint: Shortness of Breath/Dyspnea Stated Complaint: sob, back pain Time Seen by Provider: 11/26/23 19:32 History of Present Illness: HPI Narrative: 68-year-old -[place] man with a history of COPD who presents emergency room with shortness of breath. He said he was on oxygen at the retirement but went home he did not have it. He says he thinks he still needs it. Some mild cough. Some wheeze. He has been taking his breathing treatments at home. No chest pain. No altered mental status. No focal motor deficits. Related Data Previous Rx's Medication Instructions Recorded Cane #1 ea 10/03/20 Nebulizer & supplies #1 ea 02/05/22 spacer for Albuterol inhaler #1 ea 02/05/22 home oxygen 2L/min #1 ea 02/04/23 hydralazine 50 mg tablet 75 mg (1.5 x 50 mg) PO TID #405 03/23/23 tabs metoclopramide HCl 10 mg tablet 10 mg PO BID PRN Nausea #180 tabs 03/23/23 (Reglan) vit B,C-folic ac 800 mcg-zinc 12.5 1 tab PO DAILY #90 tabs 03/23/23 mg-selen-D3 2,000 unit-vit E tablet (RenaPlex-D) clobetasol 0.05 % topical ointment 1 applic topical BID 2 weeks #45 05/17/23 grams Walker #1 ea 06/15/23 Wheel Chair, medium #1 ea 07/27/23 albuterol sulfate 2.5 mg/3 mL 2.5 mg (3 mL) inhalation QID PRN 10/20/23 (0.083 %) solution for nebulization Shortness Of Breath #180 mL albuterol sulfate 90 mcg/actuation 2 puff inhalation Q6H PRN 10/20/23 aerosol inhaler Shortness Of Breath #8.5 grams amlodipine 2.5 mg tablet 2.5 mg PO DAILY blood pressure #90 10/20/23 tabs aspirin 81 mg tablet,delayed 81 mg PO DAILY #90 tabs 10/20/23 release atorvastatin 20 mg tablet 20 mg PO DAILY cholesterol #90 tabs 10/20/23 calcium acetate(phosphat bind) 667 1,334 mg (2 x 667 mg) PO TID #540 10/20/23 mg capsule caps carvedilol 25 mg tablet 25 mg PO BID 30 days #180 tabs 10/20/23 clonazepam 0.5 mg tablet 0.25 mg (1/2 x 0.5 mg) PO BID 10/20/23 anxiety #60 tabs docusate sodium 250 mg capsule 250 mg PO DAILY PRN Constipation 10/20/23 #90 caps fluticasone 250 mcg-salmeterol 50 1 inh inhalation BID #60 ea 10/20/23 mcg/dose blistr powdr for inhalation (Advair Diskus) fluticasone propionate 50 1 spray intranasal BID 30 days #16 10/20/23 mcg/actuation nasal grams spray,suspension (Flonase Allergy Relief) ipratropium 20 mcg-albuterol 100 1 puff inhalation Q4H PRN wheezing 10/20/23 mcg/actuation mist for inhalation 30 days #4 grams (Combivent Respimat) mirtazapine 15 mg tablet (Remeron) 15 mg PO .qhs insomnia/anxiety #90 10/20/23 tabs nitroglycerin 0.4 mg sublingual 0.4 mg sublingual Q5M PRN Chest 10/20/23 tablet (Nitrostat) Pain 30 days #30 tabs tramadol 50 mg tablet 50 mg PO DAILY PRN pain, severe 10/20/23 #30 tabs zolpidem 10 mg tablet (Ambien) 10 mg PO .q hs PRN sleep #30 tabs 10/20/23 cefadroxil 500 mg capsule See Rx Instructions PO DAILY #36 11/18/23 caps doxycycline hyclate 100 mg capsule 100 mg PO BID 7 days #14 caps 11/26/23 prednisone 20 mg tablet 60 mg (3 x 20 mg) PO DAILY #20 tabs 11/26/23 Allergies Allergy/AdvReac Type Severity Reaction Status Date / Time No Known Allergies Allergy Verified 11/26/23 19:30 Review of Systems 2 Narrative: Constitutional symptoms: Negative except as documented in HPI. Skin symptoms: Negative except as documented in HPI. Eye symptoms: Negative except as documented in HPI. ENMT symptoms: Negative except as documented in HPI. Respiratory symptoms: Negative except as documented in HPI. Cardiovascular symptoms: Negative except as documented in HPI. Gastrointestinal symptoms: Negative except as documented in HPI. Genitourinary symptoms: Negative except as documented in HPI. Musculoskeletal symptoms: Negative except as documented in HPI. Neurologic symptoms: Negative except as documented in HPI. Psychiatric symptoms: Negative except as documented in HPI. Endocrine symptoms: Negative except as documented in HPI. PFSH ED 2 PFSH: Medical History (Updated 11/26/23 @ 20:28 by Gilda Red MD) Chronic neck pain with history of cervical spinal surgery Hepatitis C antibody test positive Supplemental oxygen dependent CAD in [place] artery NSTEMI 10/2021 Constipation due to slow transit Lung nodule, solitary Former smoker Quit 2020 ESRD (end stage renal disease) on dialysis NSTEMI (non-ST elevated myocardial infarction) Hypertension, essential Obstructive sleep apnea CHF exacerbation Combined D/S CHF COPD exacerbation Erectile dysfunction Anemia in chronic kidney disease (CKD) Elevated PSA BPH NOS w ur obs/LUTS Moderate pulmonary arterial systolic hypertension Mild aortic stenosis 12/07/2018: Mean gradient 4.6 mmHg, aortic valve area 2.2 cm? 10/02/21: No aortic stenosis Hyperlipidemia History of pulmonary embolism Surgical History Hx of shoulder surgery left Postoperative state H/O abdominal surgery hernia History of ankle surgery History of back surgery Family History Family/Other Cancer Mother Dementia Diabetes Sister Diabetes CAD (coronary artery disease) Father , AT AGE 78 Brain aneurysm Denies family history of Clotting disorder Hyperlipidemia Psychiatric illness Chronic kidney disease (CKD) Suicide Anesthesia complication Bleeding disorder Family history of premature coronary artery disease Lung disease Hypertension Stroke Social History Smoking and tobacco/nicotine status: former use of tobacco/nicotine Quit status (tobacco/nicotine): has quit using Year quit tobacco: 2020 Former quit date comment: 0.5 ppd X 15 years Alcohol intake: former Substance/Drug Use: never Marital status: Current occupational status: disabled Physical Exam 2 Narrative: EXAM NARRATIVE: General: Alert, no acute distress. Skin: Warm, dry. Head: Normocephalic, atraumatic. Neck: Supple, trachea midline. Eye: Extraocular movements are intact. Ears, nose, mouth and throat: Oral mucosa moist. Cardiovascular: Regular rate and rhythm, Normal peripheral perfusion. Respiratory: coarse, scattered wheeze, mild increased wob. tachypnea, breath sounds are equal, Symmetrical chest wall expansion. Gastrointestinal: Soft, Nontender, Non distended, Normal bowel sounds. Musculoskeletal: Normal ROM, no deformity. Neurological: Alert and oriented to person, place, time, and situation, No focal neurological deficit observed. Psychiatric: Cooperative, appropriate mood & affect. Course 2 Vital Signs: Vital signs: Vital Signs Temperature 98.0 F 11/26/23 19:23 Pulse Rate 72 11/26/23 20:54 Respiratory Rate 18 11/26/23 20:54 Blood Pressure 182/107 11/26/23 20:54 Pulse Oximetry 95 11/26/23 20:54 Oxygen Delivery Me thod Room Air 11/26/23 20:54 MDM - SOB/Dyspnea Medical Decision Making Differential diagnosis for patient with shortness of breath includes but is not limited to and based on the above HPI, review of systems and physical exam: Pneumonia. Bronchitis. Asthma or COPD with acute exacerbation. Acute coronary syndrome / HI. Pulmonary embolism. Anxiety. Congestive heart failure. Viral infections including influenza and Covid-19. Atrial fibrillation. Anxiety. Pleural effusion. Pneumothorax. Workup: Lab work, chest X-ray and EKG ordered to evaluate, rule in and rule out above pathologies EKG: Time 1941. Rate 91. Atrial fibrillation with controlled rate, No ST-T changes, no ectopy, This was reviewed and interpreted by myself the ER physician at 1944 Lab Review: Laboratory results were reviewed and interpreted by myself the emergency room physician. No leukocytosis. No anemia. BUN and creatinine are 25 and 4.6 which would be expected in this dialysis patient. I reviewed the patient's medical record. Reexamination: Patient remained stable. No increased work of breathing. No altered mental status. No focal motor deficits. Patient has not required oxygen his sats have remained between 91 and 96% on room air. He continues to ask for oxygen. He also request to be admitted because he says he sleeps better in the hospital. I try to explain to him that he does not meet admission criteria. He has no hypoxemia. He is not septic. There was a sepsis flag: This patient does not appear to be septic. I think this was because he was a bit tachypneic. He has no leukocytosis. No fevers. No low blood pressure. No tachycardia. He is not septic. Assessment and plan: [facility]-acquired pneumonia COPD exacerbation -IV doxycycline here home on oral. ?IV Solu-Medrol and 2 updrafts in the emergency room. Lung sounds are improved. ? Discharged home - Discussed findings and plan with patient. Answered any questions. - All laboratory values were reviewed and interpreted personally by myself, the ER physician - All imaging was reviewed and interpreted personally by myself, the ER physician. - Evaluation and treatment of this problem were appropriate in the emergency setting Lab Data 11/26/23 19:38 11/26/23 19:38 Labs/Radiology: Radiology Impressions Chest X-Ray 11/26/23 19:27 IMPRESSION: Hazy opacities of the right lower lung concerning for infectious or inflammatory etiology. Laboratory Results WBC 8.02 10^3/uL (3.29-11.43) 11/26/23 19:38 RBC 3.77 10^6/uL (3.85-5.65) L 11/26/23 19:38 Hgb 12.40 g/dL (11.27-16.99) 11/26/23 19:38 Hct 37.9 % (37-53) 11/26/23 19:38 MCV 100.5 fl (82-101) 11/26/23 19:38 MCH 32.9 pg (27-33) 11/26/23 19:38 MCHC 32.7 g/dL (30-55) 11/26/23 19:38 RDW 13.7 % (12.1-15.1) 11/26/23 19:38 Plt Count 148 10^3/cmm (157-399) L 11/26/23 19:38 MPV 11.4 fL (7.4-10.4) H 11/26/23 19:38 Neut % (Auto) 73.8 % 11/26/23 19:38 Lymph % (Auto) 15.5 % 11/26/23 19:38 Mcdonough % (Auto) 9.6 % 11/26/23 19:38 Eos % (Auto) 0.4 % 11/26/23 19:38 Baso % (Auto) 0.5 % 11/26/23 19:38 Neut # (Auto) 5.92 10^3/uL (1.8-7.7) 11/26/23 19:38 Lymph # (Auto) 1.2 10^3/uL (0.8-4.8) 11/26/23 19:38 Mcdonough # (Auto) 0.8 10^3/uL (0.2-0.9) 11/26/23 19:38 Eos # (Auto) 0.0 10^3/uL (0.0-0.8) 11/26/23 19:38 Baso # (Auto) 0.0 10^3/uL (0.0-0.1) 11/26/23 19:38 Nucleated RBC % (auto) 0 % 11/26/23 19:38 Nucleated RBCs # 0.0 /100WBC 11/26/23 19:38 Sodium 141 mmol/L (136-145) 11/26/23 19:38 Potassium 3.4 mmol/L (3.5-5.1) L 11/26/23 19:38 Chloride 97 mmol/L (98-107) L 11/26/23 19:38 Carbon Dioxide 31 mmol/L (22-29) H 11/26/23 19:38 Anion Gap 16.4 (5-19) 11/26/23 19:38 BUN 25 mg/dL (8-23) H 11/26/23 19:38 Creatinine 4.6 mg/dL (0.7-1.2) H 11/26/23 19:38 GFR Calculation 15.5 mL/min (90-130) L 11/26/23 19:38 Glucose 120 mg/dL (65-115) H 11/26/23 19:38 Calculated Osmolality 298 mOsm/kg (285-295) H 11/26/23 19:38 Lactic Acid 1.7 mmol/L (0.5-2.2) 11/26/23 19:38 Calcium 8.7 mg/dL (8.5-10.5) 11/26/23 19:38 Total Bilirubin 1.5 mg/dL (0.15-1.2) H 11/26/23 19:38 AST 23 U/L (0-40) 11/26/23 19:38 ALT 11 U/L (0-41) 11/26/23 19:38 Alkaline Phosphatase 108 U/L (40-130) 11/26/23 19:38 Troponin T Baseline 95 ng/L (0-15) H 11/26/23 19:38 C-Reactive Protein 12.7 mg/L (0.0-4.9) H 11/26/23 19:38 NT-Pro-B Natriuret Pep > 30120 pg/mL (0-125) H 11/26/23 19:38 Total Protein 7.4 g/dL (6.6-8.7) 11/26/23 19:38 Albumin 4.4 g/dL (3.5-5.2) 11/26/23 19:38 Globulin 3.0 g/dL (1.3-4.6) 11/26/23 19:38 All radiology interpretation(s) finalized by discharge Discharge Plan Discharge Patient Disposition: Home Clinical Impression: Community acquired pneumonia, Acute exacerbation of chronic obstructive airways disease Condition: Stable Prescriptions: New doxycycline hyclate 100 mg capsule 100 mg PO BID 7 Days Qty: 14 0RF prednisone 20 mg tablet 60 mg PO DAILY Qty: 20 0RF Rx Instructions: 3 tabs (60 mg) x 3 days. 2 tabs (40 mg) x 3 days. 1 tab (20 mg) x 3 days. 1/2 tab (10 mg) x 4 days No Action (DME) spacer for Albuterol inhaler See Rx Instructions .Route .MEDSUPPLY Qty: 1 0RF Rx Instructions: As directed (DME) Nebulizer & supplies See Rx Instructions .Route .MEDSUPPLY Qty: 1 1RF Rx Instructions: As directed amlodipine 2.5 mg tablet 2.5 mg PO DAILY Qty: 90 1RF albuterol sulfate 2.5 mg /3 mL (0.083 %) solution for nebulization 2.5 mg INHALATION QID PRN (Reason: Shortness Of Breath) Qty: 180 5RF albuterol sulfate 90 mcg/actuation HFA aerosol inhaler 2 puff INHALATION Q6H PRN (Reason: Shortness Of Breath) Qty: 8.5 3RF Rx Instructions: NEEDS APPT PRIOR TO FURTHER REFILLS aspirin 81 mg tablet,delayed release (DR/EC) 81 mg PO DAILY Qty: 90 3RF atorvastatin 20 mg tablet 20 mg PO DAILY Qty: 90 1RF calcium acetate(phosphat bind) 667 mg capsule 1,334 mg PO TID Qty: 540 3RF carvedilol 25 mg tablet 25 mg PO BID 30 Days Qty: 180 0RF Rx Instructions: must administer with a meal/food clonazepam 0.5 mg tablet 0.25 mg PO BID Qty: 60 2RF docusate sodium 250 mg capsule 250 mg PO DAILY PRN (Reason: Constipation) Qty: 90 3RF fluticasone propion-salmeterol [Advair Diskus] 250-50 mcg/dose blister with device 1 inh inhalation BID Qty: 60 3RF fluticasone propionate [Flonase Allergy Relief] 50 mcg/actuation spray,suspension 1 spray intranasal BID 30 Days Qty: 16 4RF Rx Instructions: administer into each nostril Combivent Respimat 20-100 mcg/actuation mist 1 puff inhalation Q4H PRN (Reason: wheezing) 30 Days Qty: 4 4RF mirtazapine [Remeron] 15 mg tablet 15 mg PO .qhs Qty: 90 1RF nitroglycerin [Nitrostat] 0.4 mg tablet, sublingual 0.4 mg SUBLINGUAL Q5M PRN (Reason: Chest Pain) 30 Days Qty: 30 0RF tramadol 50 mg tablet 50 mg PO DAILY PRN (Reason: pain, severe) Qty: 30 2RF Rx Instructions: Refill on or after 30 days zolpidem [Ambien] 10 mg tablet 10 mg PO .q hs PRN (Reason: sleep) Qty: 30 2RF Rx Instructions: Tried to take only one every other night (DME) home oxygen 2L/min 2 L/min flow See Rx Instructions .Route .MEDSUPPLY Qty: 1 0RF Rx Instructions: As directed (DME) Cane See Rx Instructions .Route .MEDSUPPLY Qty: 1 0RF Rx Instructions: As directed hydralazine 50 mg tablet 75 mg PO TID Qty: 405 3RF Reglan 10 mg tablet 10 mg PO BID PRN (Reason: Nausea) Qty: 180 2RF RenaPlex-D 800 mcg-12.5 mg -2,000 unit tablet 1 tab PO DAILY Qty: 90 3RF clobetasol 0.05 % ointment 1 applic topical BID 14 Days Qty: 45 1RF Rx Instructions: Apply to affected area no more than 2 weeks per month, not for face or skin folds (DME) Walker See Rx Instructions .Route .MEDSUPPLY Qty: 1 0RF Rx Instructions: As directed (DME) Wheel Chair, medium See Rx Instructions .Route .MEDSUPPLY Qty: 1 0RF Rx Instructions: As directed cefadroxil 500 mg capsule See Rx Instructions PO DAILY Qty: 36 3RF Rx Instructions: orally daily; Take one capsule on Tuesday, Tuesday, and Tuesday. Discharge Orders: Discharge ED (Routine); Ordered 11/26/23 Ordered By: Gilda Red Referrals: Kian Colon MD [Primary Care Provider] - Discharge Diet: Usual diet Discharge Activity: Increase activity as tolerated Patient Instructions: COPD (Chronic Obstructive Pulmonary Disease) (ED), Community Acquired Pneumonia (ED) Activity Restrictions/Additional Instructions: Thank you for choosing [facility] for your healthcare needs today. Please realize this is an emergency room and that we are providing you with a medical screening exam and this may not be complete and all inclusive of all the testing and or work up that you may need to determine your ailment or severity of your illness. You have been screened and evaluated and felt safe for discharge. Health conditions do change or evolve sometimes and as such it is important that you follow up with your Primary Doctor to be re checked, 3-5 days is a general good time frame for follow up. You are always welcome to return to the ED for re assessment if your symptoms are worsening or you have new concerns Coding Level of Care Code ED Manager Performance for Ramana Pillai
[2023-11-26] MEDS: methylPREDNISolone sod succ 125 mg/2 mL INJ IVP (19:50)
[2023-11-26 20:03] LABS: Troponin(5th) Baseline 95 ng/L (0-15)
[2023-11-26 20:04] LABS: Lactic Sepsis W/Reflex 1.7 mmol/L (0.5-2.2)
[2023-11-26] MEDS: albuterol 2.5 mg/3 mL Neb INHALATION (20:04)
[2023-11-26] MEDS: ipratropium-albuterol 3 mL Neb INHALATION (20:04)
[2023-11-26 20:19] LABS: Alanine Aminotransferase 11 U/L (0-41); Albumin Level 4.4 g/dL (3.5-5.2); Alkaline Phosphatase 108 U/L (40-130); Anion Gap 16.4 (5-19); Aspartate Amino Transferase 23 U/L (0-40); Blood Urea Nitrogen 25 mg/dL (8-23); C Reactive Protein 12.7 mg/L (0.0-4.9); Calcium 8.7 mg/dL (8.5-10.5); Carbon Dioxide 31 mmol/L (22-29); Chloride 97 mmol/L (98-107); Creatinine Clr Calc Pharmacy 14.8382; Glomerular Filtration Rate 15.5 mL/min (90-130); Glucose 120 mg/dL (65-115); Osmolality Calculated 298 mOsm/kg (285-295); Potassium 3.4 mmol/L (3.5-5.1); Sodium 141 mmol/L (136-145); Total Bilirubin 1.5 mg/dL (0.15-1.2); Total Protein 7.4 g/dL (6.6-8.7)
[2023-11-26 20:42] LABS: NT Pro B Type Natriuretic Pept > 70000 pg/mL (0-125)
[2023-11-26] MEDS: doxycycline 100 MG in sodium chloride 0.9% (plus) 100 ML IV (21:10)
[2023-11-26 21:14] LABS: Troponin 5 2HR 95.98 ng/L (0-15); Troponin 5 2HR Delta 0.98 ABS# (0-10)
--- NOTE | 2023-11-26 21:27 | ECG_ITS ---
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 Measurements Intervals [place] Rate: 93 P: 58 ND: 150 QRS: -64 QRSD: 118 T: 97 QT: 400 QTc: 498 Interpretive Statements SINUS RHYTHM WITH FREQUENT VENTRICULAR PREMATURE COMPLEXES LEFT AXIS DEVIATION [QRS AXIS < -30] LEFT VENTRICULAR HYPERTROPHY AND ST-T CHANGE [VOLTAGE CRITERIA PLUS ST/T ABNORMALITY] Compared to ECG 11/26/2023 19:42:41 Ventricular premature complex(es) now present ST (T wave) deviation now present Atrial fibrillation no longer present T-wave abnormality no longer present Possible ischemia no longer present Electronically Signed On 11-27-2023 20:39:12 CDT by Elle Carballo M.D. [id number]
== END 2023-11-26 22:04 | disposition home or self-care (01) ==
PROVIDERS: Emergency Provider Emergency Medicine; PCP Family Medicine Adult Medicine
DX: J44.0 Chronic obstructive pulmonary disease with (acute) lower respiratory infection (principal); J18.9 Pneumonia, unspecified organism; J44.1 Chronic obstructive pulmonary disease with (acute) exacerbation; Z79.82 Long term (current) use of aspirin; I48.91 Unspecified atrial fibrillation; Z87.891 Personal history of nicotine dependence; Z86.19 Personal history of other infectious and parasitic diseases; I25.10 Atherosclerotic heart disease of native coronary artery without angina pectoris; I25.2 Old myocardial infarction; I13.2 Hypertensive heart and chronic kidney disease with heart failure and with stage 5 chronic kidney disease, or end stage renal disease; N18.6 End stage renal disease; I50.9 Heart failure, unspecified; Z99.2 Dependence on renal dialysis; E78.5 Hyperlipidemia, unspecified
CPT/HCPCS: 36415; 71045; 80053; 83605; 83880; 84484; 85025; 86140; 93005; 94640; 96374; 96375; 99285; J2919; J3490; J7613

== ENCOUNTER 2023-12-04 19:36 | Emergency (ER) | payer MEDICARE, MEDICAID, SELFPAY ==
[2023-12-04 19:40] VITALS: BP 157/84; PULSE 82; RESP 18; TEMP 36.6; O2SAT 97; BMI 21.5
--- NOTE | 2023-12-04 20:15 | ECG_ITS ---
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 Measurements Intervals [place] Rate: 89 P: 0 WI: 0 QRS: -61 QRSD: 128 T: 120 QT: 431 QTc: 526 Interpretive Statements ATRIAL FIBRILLATION WITH ABERRANT CONDUCTION OR VENTRICULAR PREMATURE COMPLEXES LEFT ANTERIOR FASCICULAR BLOCK [QRS AXIS <= -45, QR IN I, RS IN II] NONSPECIFIC ST & T-WAVE ABNORMALITY PROLONGED QT INTERVAL Compared to ECG 11/26/2023 21:33:52 Aberrant conduction of supraventricular beat(s) now present Left anterior fascicular block now present T-wave abnormality now present Prolonged QT interval now present Left ventricular hypertrophy no longer present ST (T wave) deviation no longer present Electronically Signed On 12-05-2023 11:11:09 CDT by Ben Rincon M.D. [id number]
--- NOTE | 2023-12-04 20:16 | XRR_ITS ---
PROCEDURE INFORMATION: Exam: XR Chest Exam date and time: 12/04/2023 8:28 PM Age: 68 years old Clinical indication: Shortness of breath; Patient was treated for pneumonia last week. TECHNIQUE: Imaging protocol: Radiologic exam of the chest. Views: 1 view. COMPARISON: CR (CHEST, ) 11/26/2023 7:50 PM FINDINGS: Lungs: There is scarring and or atelectasis in the right lung. No large focal consolidation. Pleural spaces: Unremarkable. No pleural effusion. No pneumothorax. Heart/Mediastinum: Possible cardiomegaly.Heart size not optimally evaluated with a single AP view of the chest. Vasculature: Thoracic aorta is tortuous similar to the prior study. Bones/joints: Old/healed right rib fracture sites. XR/XR chest 1V portable [id number] IMPRESSION: Possible cardiomegaly.Heart size not optimally evaluated with a single AP view of the chest.
--- NOTE | 2023-12-04 20:23 | PC.NURSE ---
PTs daughter, Jeannette, called and was asking for a update. Daughter was informed of the plan at this time and will call back
[2023-12-04 20:39] LABS: Basophils % 0.5 %; Eosinophils # 0.1 10^3/uL (0.0-0.8); Eosinophils % 0.8 %; Hematocrit 30.8 % (37-53); Lymphocytes # 1.4 10^3/uL (0.8-4.8); Lymphocytes % 16.6 %; Mean Corpuscular HGB Conc 33.4 g/dL (30-55); Mean Corpuscular Hemoglobin 33.3 pg (27-33); Mean Corpuscular Volume 99.7 fl (82-101); Mean Platelet Volume 11.4 fL (7.4-10.4); Monocytes % 11.4 %; Neutrophils # 5.88 10^3/uL (1.8-7.7); Neutrophils % 70.3 %; Nucleated Red Blood Cells % 0 %; Platelet Count 132 10^3/cmm (157-399); Red Blood Count 3.09 10^6/uL (3.85-5.65); Red Cell Distribution Width 13.9 % (12.1-15.1); White Blood Count 8.36 10^3/uL (3.29-11.43)
[2023-12-04] MEDS: ipratropium-albuterol 3 mL Neb INHALATION (20:42)
[2023-12-04 20:44] VITALS: PULSE 81; RESP 20; O2SAT 82
[2023-12-04 20:57] LABS: ABG PCO2 38.9 mmHg (35-45); ABG PH Result 7.52 (7.35-7.45); Arterial Blood Gas Hematocrit 33.1 % (42-52); Blood Gas Allen Test Pos; Blood Gas Operator Identificat CL; Blood Gas Sample Site Radial, right; Blood Gas Sample Type Arterial; Carboxyhemoglobin 4.1 %THgb (0.4-20.1); HCO3 ABG 31.6 mmol/L (22-26); HGB O2 Sat 93.9 % (95-100); Methemoglobin 0.2 % (0.4-1.5); Oxygen Device NC; PO2 ABG 88.3 mmHg (80.0-100.0); Total Hemoglobin 10.8 g/dL (14-18)
[2023-12-04 20:58] LABS: Lactic Sepsis W/Reflex 1.3 mmol/L (0.5-2.2)
[2023-12-04 21:00] VITALS: BP 144/94; PULSE 82; RESP 16; O2SAT 100
[2023-12-04 21:04] LABS: Alanine Aminotransferase 8 U/L (0-41); Albumin Level 3.7 g/dL (3.5-5.2); Alkaline Phosphatase 88 U/L (40-130); Anion Gap 17.6 (5-19); Aspartate Amino Transferase 17 U/L (0-40); Blood Urea Nitrogen 33 mg/dL (8-23); Carbon Dioxide 29 mmol/L (22-29); Chloride 96 mmol/L (98-107); Creatinine Clr Calc Pharmacy 11.6419; Globulin 3.1 g/dL (1.3-4.6); Glomerular Filtration Rate 11.2 mL/min (90-130); Glucose 112 mg/dL (65-115); Osmolality Calculated 296 mOsm/kg (285-295); Potassium 3.6 mmol/L (3.5-5.1); Sodium 139 mmol/L (136-145); Total Bilirubin 1.1 mg/dL (0.15-1.2); Total Protein 6.8 g/dL (6.6-8.7)
[2023-12-04 21:25] LABS: NT Pro B Type Natriuretic Pept > 70000 pg/mL (0-125)
[2023-12-04 22:00] VITALS: BP 153/106; PULSE 88; RESP 16; O2SAT 98
[2023-12-04 23:00] VITALS: BP 120/78; PULSE 88; RESP 17; O2SAT 95
[2023-12-04 23:30] VITALS: BP 133/80; PULSE 84; RESP 17; O2SAT 98
[2023-12-04] MEDS: lidocaine 2% viscous 15 ML, aluminum-mag hydrox-simethicon 30 ML, sucralfate oral liq 1 GM PO (23:37)
--- NOTE | 2023-12-04 23:58 | ED_ITS ---
HPI - SOB/Dyspnea 2 General: Chief Complaint: Shortness of Breath/Dyspnea Stated Complaint: back pain Time Seen by Provider: 12/04/23 20:12 History of Present Illness: HPI Narrative: 68-year-old male patient with a history of end-stage renal disease, on dialysis, and cardiomyopathy. He presents with continued shortness of breath. He was diagnosed with pneumonia last week, and has been on antibiotics. He does not believe he is any better. He also complains of cramping stomach pain and points to the epigastrium. He has not had fever. No sputum production. Related Data Previous Rx's Medication Instructions Recorded Cane #1 ea 10/03/20 Nebulizer & supplies #1 ea 02/05/22 spacer for Albuterol inhaler #1 ea 02/05/22 home oxygen 2L/min #1 ea 02/04/23 hydralazine 50 mg tablet 75 mg (1.5 x 50 mg) PO TID #405 03/23/23 tabs metoclopramide HCl 10 mg tablet 10 mg PO BID PRN Nausea #180 tabs 03/23/23 (Reglan) vit B,C-folic ac 800 mcg-zinc 12.5 1 tab PO DAILY #90 tabs 03/23/23 mg-selen-D3 2,000 unit-vit E tablet (RenaPlex-D) clobetasol 0.05 % topical ointment 1 applic topical BID 2 weeks #45 05/17/23 grams Walker #1 ea 06/15/23 Wheel Chair, medium #1 ea 07/27/23 albuterol sulfate 2.5 mg/3 mL 2.5 mg (3 mL) inhalation QID PRN 10/20/23 (0.083 %) solution for nebulization Shortness Of Breath #180 mL albuterol sulfate 90 mcg/actuation 2 puff inhalation Q6H PRN 10/20/23 aerosol inhaler Shortness Of Breath #8.5 grams amlodipine 2.5 mg tablet 2.5 mg PO DAILY blood pressure #90 10/20/23 tabs aspirin 81 mg tablet,delayed 81 mg PO DAILY #90 tabs 10/20/23 release atorvastatin 20 mg tablet 20 mg PO DAILY cholesterol #90 tabs 10/20/23 calcium acetate(phosphat bind) 667 1,334 mg (2 x 667 mg) PO TID #540 10/20/23 mg capsule caps carvedilol 25 mg tablet 25 mg PO BID 30 days #180 tabs 10/20/23 clonazepam 0.5 mg tablet 0.25 mg (1/2 x 0.5 mg) PO BID 10/20/23 anxiety #60 tabs docusate sodium 250 mg capsule 250 mg PO DAILY PRN Constipation 10/20/23 #90 caps fluticasone 250 mcg-salmeterol 50 1 inh inhalation BID #60 ea 10/20/23 mcg/dose blistr powdr for inhalation (Advair Diskus) fluticasone propionate 50 1 spray intranasal BID 30 days #16 10/20/23 mcg/actuation nasal grams spray,suspension (Flonase Allergy Relief) ipratropium 20 mcg-albuterol 100 1 puff inhalation Q4H PRN wheezing 10/20/23 mcg/actuation mist for inhalation 30 days #4 grams (Combivent Respimat) mirtazapine 15 mg tablet (Remeron) 15 mg PO .qhs insomnia/anxiety #90 10/20/23 tabs nitroglycerin 0.4 mg sublingual 0.4 mg sublingual Q5M PRN Chest 10/20/23 tablet (Nitrostat) Pain 30 days #30 tabs tramadol 50 mg tablet 50 mg PO DAILY PRN pain, severe 10/20/23 #30 tabs zolpidem 10 mg tablet (Ambien) 10 mg PO .q hs PRN sleep #30 tabs 10/20/23 cefadroxil 500 mg capsule See Rx Instructions PO DAILY #36 11/18/23 caps prednisone 20 mg tablet 60 mg (3 x 20 mg) PO DAILY #20 tabs 11/26/23 inhalational spacing device #1 ea 11/30/23 (Aerochamber Plus Flow-Vu) Allergies Allergy/AdvReac Type Severity Reaction Status Date / Time No Known Allergies Allergy Verified 12/04/23 19:44 PFSH ED 2 PFSH: Medical History Chronic neck pain with history of cervical spinal surgery Hepatitis C antibody test positive Supplemental oxygen dependent CAD in [place] artery NSTEMI 10/2021 Constipation due to slow transit Lung nodule, solitary Former smoker Quit 2020 ESRD (end stage renal disease) on dialysis NSTEMI (non-ST elevated myocardial infarction) Hypertension, essential Obstructive sleep apnea CHF exacerbation Combined D/S CHF COPD exacerbation Erectile dysfunction Anemia in chronic kidney disease (CKD) Elevated PSA BPH NOS w ur obs/LUTS Moderate pulmonary arterial systolic hypertension Mild aortic stenosis 12/07/2018: Mean gradient 4.6 mmHg, aortic valve area 2.2 cm? 10/02/21: No aortic stenosis Hyperlipidemia History of pulmonary embolism Surgical History Hx of shoulder surgery left Postoperative state H/O abdominal surgery hernia History of ankle surgery History of back surgery Family History Family/Other Cancer Mother Dementia Diabetes Sister Diabetes CAD (coronary artery disease) Father , AT AGE 78 Brain aneurysm Denies family history of Clotting disorder Hyperlipidemia Psychiatric illness Chronic kidney disease (CKD) Suicide Anesthesia complication Bleeding disorder Family history of premature coronary artery disease Lung disease Hypertension Stroke Social History Smoking and tobacco/nicotine status: former use of tobacco/nicotine Quit status (tobacco/nicotine): has quit using Year quit tobacco: 2020 Former quit date comment: 0.5 ppd X 15 years Alcohol intake: former Substance/Drug Use: never Marital status: Current occupational status: disabled Physical Exam 2 Const: COMMON NORMALS: no acute distress GENERAL APPEARANCE: cooperative; not ill appearing and not frail appearing HENMT: COMMON NORMALS: normocephalic, atraumatic and Normal external nose present HEAD & SCALP: normocephalic and atraumatic FACE & SINUS: normal facial exam and face symmetric NOSE: Normal external nose present Eye: COMMON NORMALS: Equal, round and reactive pupils present and EOMs intact bilaterally PUPIL: Yes Equal, round and reactive pupils present Neck/C-Spine: GENERAL: Yes trachea midline Chest: CHEST: Yes Symmetrical chest wall rise Resp: COMMON NORMALS: normal respiratory effort, No retractions, No use of accessory muscles and clear to auscultation bilaterally AUSCULTATION: clear to auscultation bilaterally Cardio: COMMON NORMALS: regular rate and regular rhythm RATE: regular rate RHYTHM: regular rhythm GI: COMMON NORMALS: Normal to inspection, nondistended, normoactive bowel sounds present PALPATION: Yes Tenderness to palpation present (GI) (Epigastric) Extremity: COMMON NORMALS: no pedal edema Neuro: BRIANA COMA SCALE: document GCS findings [place] coma scale eye opening: Spontaneous [place] coma scale verbal response: Orientated Briana coma scale motor response: Obey commands Briana coma scale total score: 15 S ENSORY EXAM: Yes extremities (intact) Psych: COMMON NORMALS: speech normal SPEECH: Yes normal speech Skin: COMMON NORMALS: no rashes or lesions noted GENERAL SKIN EXAM: no rashes or lesions noted Course 2 Vital Signs: Vital signs: Vital Signs Temperature 98 F 12/04/23 19:40 Pulse Rate 84 12/04/23 23:30 Respiratory Rate 17 12/04/23 23:30 Blood Pressure 133/80 12/04/23 23:30 Pulse Oximetry 98 12/04/23 23:30 Oxygen Delivery Me thod Room Air 12/04/23 22:00 Oxygen Flow Rate 1 12/04/23 20:44 MDM - SOB/Dyspnea Medical Decision Making Patient does not appear acutely ill. Vitals are now normal. He is on room air. Hemoglobin is stable at 10.3. White blood cell count is normal. Creatinine is 6, but electrolytes are not abnormal. Chest x-ray is clear. Lactic acid is 1.3. pH 7.52 with pCO2 of 39. He is given a GI cocktail here with some improvement in the epigastric discomfort. He is stable for discharge. No return for any new or worsening symptoms. Close outpatient follow-up. He is to attend dialysis tomorrow. Lab Data 12/04/23 20:30 12/04/23 20:30 Labs/Radiology: Radiology Impressions Chest X-Ray 12/04/23 20:16 IMPRESSION: Possible cardiomegaly.Heart size not optimally evaluated with a single AP view of the chest. Laboratory Results WBC 8.36 10^3/uL (3.29-11.43) 12/04/23 20:30 RBC 3.09 10^6/uL (3.85-5.65) L 12/04/23 20:30 Hgb 10.30 g/dL (11.27-16.99) L 12/04/23 20:30 Hct 30.8 % (37-53) L 12/04/23 20:30 MCV 99.7 fl (82-101) 12/04/23 20:30 MCH 33.3 pg (27-33) H 12/04/23 20:30 MCHC 33.4 g/dL (30-55) 12/04/23 20:30 RDW 13.9 % (12.1-15.1) 12/04/23 20:30 Plt Count 132 10^3/cmm (157-399) L 12/04/23 20:30 MPV 11.4 fL (7.4-10.4) H 12/04/23 20:30 Neut % (Auto) 70.3 % 12/04/23 20:30 Lymph % (Auto) 16.6 % 12/04/23 20:30 [place] % (Auto) 11.4 % 12/04/23 20:30 Eos % (Auto) 0.8 % 12/04/23 20:30 Baso % (Auto) 0.5 % 12/04/23 20:30 Neut # (Auto) 5.88 10^3/uL (1.8-7.7) 12/04/23 20:30 Lymph # (Auto) 1.4 10^3/uL (0.8-4.8) 12/04/23 20:30 [place] # (Auto) 1.0 10^3/uL (0.2-0.9) H 12/04/23 20:30 Eos # (Auto) 0.1 10^3/uL (0.0-0.8) 12/04/23 20:30 Baso # (Auto) 0.0 10^3/uL (0.0-0.1) 12/04/23 20:30 Nucleated RBC % (auto) 0 % 12/04/23 20:30 Nucleated RBCs # 0.0 /100WBC 12/04/23 20:30 Specimen Type Arterial 12/04/23 20:48 Sample Site Radial, right 12/04/23 20:48 ABG pH 7.52 (7.35-7.45) H 12/04/23 20:48 ABG pCO2 38.9 mmHg (35-45) 12/04/23 20:48 ABG pO2 88.3 mmHg (80.0-100.0) 12/04/23 20:48 ABG HCO3 31.6 mmol/L (22-26) H 12/04/23 20:48 ABG Base Excess 8.0 mmol/L (-2.0-2.0) H 12/04/23 20:48 Antonio Test Pos 12/04/23 20:48 Hematocrit 33.1 % (42-52) L 12/04/23 20:48 Hgb O2 Saturation 93.9 % (95-100) L 12/04/23 20:48 Carboxyhemoglobin 4.1 %THgb (0.4-20.1) 12/04/23 20:48 Methemoglobin 0.2 % (0.4-1.5) L 12/04/23 20:48 Total Hemoglobin 10.8 g/dL (14-18) L 12/04/23 20:48 O2 Delivery Device Nc 12/04/23 20:48 O2 Liters/Min 1.0 % 12/04/23 20:48 [place] Man ID Cl 12/04/23 20:48 Sodium 139 mmol/L (136-145) 12/04/23 20:30 Potassium 3.6 mmol/L (3.5-5.1) 12/04/23 20:30 Chloride 96 mmol/L (98-107) L 12/04/23 20:30 Carbon Dioxide 29 mmol/L (22-29) 12/04/23 20:30 Anion Gap 17.6 (5-19) 12/04/23 20:30 BUN 33 mg/dL (8-23) H 12/04/23 20:30 Creatinine 6.1 mg/dL (0.7-1.2) H* 12/04/23 20:30 GFR Calculation 11.2 mL/min (90-130) L 12/04/23 20:30 Glucose 112 mg/dL (65-115) 12/04/23 20:30 Calculated Osmolality 296 mOsm/kg (285-295) H 12/04/23 20:30 Lactic Acid 1.3 mmol/L (0.5-2.2) 12/04/23 20:30 Calcium 8.0 mg/dL (8.5-10.5) L 12/04/23 20:30 Total Bilirubin 1.1 mg/dL (0.15-1.2) 12/04/23 20:30 AST 17 U/L (0-40) 12/04/23 20:30 ALT 8 U/L (0-41) 12/04/23 20:30 Alkaline Phosphatase 88 U/L (40-130) 12/04/23 20:30 NT-Pro-B Natriuret Pep > 11868 pg/mL (0-125) H 12/04/23 20:30 Total Protein 6.8 g/dL (6.6-8.7) 12/04/23 20:30 Albumin 3.7 g/dL (3.5-5.2) 12/04/23 20:30 Globulin 3.1 g/dL (1.3-4.6) 12/04/23 20:30 All radiology interpretation(s) finalized by discharge Discharge Plan Discharge Patient Disposition: Home Clinical Impression: Acute dyspnea, ESRD (end stage renal disease) on dialysis Condition: Stable Prescriptions: No Action (DME) spacer for Albuterol inhaler See Rx Instructions .Route .MEDSUPPLY Qty: 1 0RF Rx Instructions: As directed (DME) Nebulizer & supplies See Rx Instructions .Route .MEDSUPPLY Qty: 1 1RF Rx Instructions: As directed amlodipine 2.5 mg tablet 2.5 mg PO DAILY Qty: 90 1RF albuterol sulfate 2.5 mg /3 mL (0.083 %) solution for nebulization 2.5 mg INHALATION QID PRN (Reason: Shortness Of Breath) Qty: 180 5RF albuterol sulfate 90 mcg/actuation HFA aerosol inhaler 2 puff INHALATION Q6H PRN (Reason: Shortness Of Breath) Qty: 8.5 3RF Rx Instructions: NEEDS APPT PRIOR TO FURTHER REFILLS aspirin 81 mg tablet,delayed release (DR/EC) 81 mg PO DAILY Qty: 90 3RF atorvastatin 20 mg tablet 20 mg PO DAILY Qty: 90 1RF calcium acetate(phosphat bind) 667 mg capsule 1,334 mg PO TID Qty: 540 3RF carvedilol 25 mg tablet 25 mg PO BID 30 Days Qty: 180 0RF Rx Instructions: must administer with a meal/food clonazepam 0.5 mg tablet 0.25 mg PO BID Qty: 60 2RF docusate sodium 250 mg capsule 250 mg PO DAILY PRN (Reason: Constipation) Qty: 90 3RF fluticasone propion-salmeterol [Advair Diskus] 250-50 mcg/dose blister with device 1 inh inhalation BID Qty: 60 3RF fluticasone propionate [Flonase Allergy Relief] 50 mcg/actuation spray,suspension 1 spray intranasal BID 30 Days Qty: 16 4RF Rx Instructions: administer into each nostril Combivent Respimat 20-100 mcg/actuation mist 1 puff inhalation Q4H PRN (Reason: wheezing) 30 Days Qty: 4 4RF mirtazapine [Remeron] 15 mg tablet 15 mg PO .qhs Qty: 90 1RF nitroglycerin [Nitrostat] 0.4 mg tablet, sublingual 0.4 mg SUBLINGUAL Q5M PRN (Reason: Chest Pain) 30 Days Qty: 30 0RF tramadol 50 mg tablet 50 mg PO DAILY PRN (Reason: pain, severe) Qty: 30 2RF Rx Instructions: Refill on or after 30 days zolpidem [Ambien] 10 mg tablet 10 mg PO .q hs PRN (Reason: sleep) Qty: 30 2RF Rx Instructions: Tried to take only one every other night (DME) home oxygen 2L/min 2 L/min flow See Rx Instructions .Route .MEDSUPPLY Qty: 1 0RF Rx Instructions: As directed (DME) Cane See Rx Instructions .Route .MEDSUPPLY Qty: 1 0RF Rx Instructions: As directed hydralazine 50 mg tablet 75 mg PO TID Qty: 405 3RF Reglan 10 mg tablet 10 mg PO BID PRN (Reason: Nausea) Qty: 180 2RF RenaPlex-D 800 mcg-12.5 mg -2,000 unit tablet 1 tab PO DAILY Qty: 90 3RF clobetasol 0.05 % ointment 1 applic topical BID 14 Days Qty: 45 1RF Rx Instructions: Apply to affected area no more than 2 weeks per month, not for face or skin folds (DME) Walker See Rx Instructions .Route .MEDSUPPLY Qty: 1 0RF Rx Instructions: As directed (DME) Wheel Chair, medium See Rx Instructions .Route .MEDSUPPLY Qty: 1 0RF Rx Instructions: As directed cefadroxil 500 mg capsule See Rx Instructions PO DAILY Qty: 36 3RF Rx Instructions: orally daily; Take one capsule on Tuesday, Tuesday, and Tuesday. (DME) Aerochamber Plus Flow-Vu Spacer See Rx Instructions .Route Qty: 1 0RF Rx Instructions: As directed prednisone 20 mg tablet 60 mg PO DAILY Qty: 20 0RF Rx Instructions: 3 tabs (60 mg) x 3 days. 2 tabs (40 mg) x 3 days. 1 tab (20 mg) x 3 days. 1/2 tab (10 mg) x 4 days Discharge Orders: Discharge ED (Routine); Ordered 12/04/23 Ordered By: Roc Montes Referrals: Kian Colon MD [Primary Care Provider] - 1-3 days Patient Instructions: Dyspnea (ED), End Stage Kidney Disease (ED), Opioid Safety, Pain Management Activity Restrictions/Additional Instructions: Continue to use your nebulizer machine every 4 hours while awake for the first 48 hours scheduled, then as needed following that. Be sure to attend dialysis as scheduled. Return for fever greater than 100, worsening shortness of breath, other concerning symptoms. Increasing fiber in your diet may help stomach cramps and diarrheal symptoms. 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
== END 2023-12-05 | disposition home or self-care (01) ==
PROVIDERS: Emergency Provider Emergency Medicine; PCP Family Medicine Adult Medicine
DX: R06.02 Shortness of breath (principal); I13.2 Hypertensive heart and chronic kidney disease with heart failure and with stage 5 chronic kidney disease, or end stage renal disease; N18.6 End stage renal disease; I50.9 Heart failure, unspecified; Z99.2 Dependence on renal dialysis; Z86.19 Personal history of other infectious and parasitic diseases; I25.10 Atherosclerotic heart disease of native coronary artery without angina pectoris; I25.2 Old myocardial infarction; J44.9 Chronic obstructive pulmonary disease, unspecified; E78.5 Hyperlipidemia, unspecified; Z87.891 Personal history of nicotine dependence; Z79.82 Long term (current) use of aspirin
CPT/HCPCS: 36600; 71045; 80053; 82805; 83605; 83880; 85025; 87040; 93005; 94640; 99285

== ENCOUNTER → 2024-02-02 13:51 | Outpatient (BNVA) | payer MEDICARE, MEDICAID, SELFPAY | PROVIDERS: PCP Family Medicine Adult Medicine; Visit Provider Orthopaedic Surgery | DX: Z09 Encounter for follow-up examination after completed treatment for conditions other than malignant neoplasm (principal); M54.9 Dorsalgia, unspecified; Z01.818 Encounter for other preprocedural examination | CPT/HCPCS: 36415; 80053; 81001; 85025; 99214 ==

== ENCOUNTER 2024-02-09 14:30 | Outpatient (CLI) | payer MEDICARE, MEDICAID, SELFPAY ==
--- NOTE | 2024-02-09 14:30 | MR_ITS ---
WS: [id number] MRI LUMBAR SPINE NONCONTRAST HISTORY: Chronic back pain. COMPARISON: 06/26/2021 TECHNIQUE: Sagittal and axial multisequence imaging is submitted. Study is terminated by patient due to pain. Straightening of the normal lumbar lordosis. Prior posterior lumbar fusion from L3-L5. New since the prior MRI of 06/26/2021 is significant retrolisthesis of the L3 vertebral body. Retrolis thesis by 11.5 mm. L2-3 disc space is completely obliterated with bone upon bone. Marrow edema at L2, L3 and L4. Change in position and alignment of the previously described posterior pedicle screws at L3. The screws now appear to be oriented superior along the L3 vertebral body into the disc space and foramen. Conus terminates normally at L1-2 disc level. Axial T2 imaging not performed due to patient discomfort. L1-L2: No stenosis. L2-L3: Posterior displacement of L3 displacing the nerve roots in the thecal sac. There is deformity and displacement of the nerve roots. The exact stenosis is difficult to determine but there is high-g rade, severe bilateral foraminal stenosis. Suspect significant subarticular recess and central stenos is also. L3-L4: Osteophytic ridging. Diffuse annular disc bulging. Moderate bilateral foraminal stenosis. Cent ral stenosis cannot be determined posterior laminectomy defect. L4-L5: Diffuse annular disc bulging. Moderate bilateral foraminal stenosis. L5-S1: Moderate bilateral foraminal stenosis. MR/MR lumbar spine wo con* [id number] IMPRESSION: 1. Study was terminated before all sequences were performed due to patient dis comfort and pain. 2. New since the prior study of 06/26/2021 is marked retrolisthesis of L3 by 11 .5 mm encroaching upon the thecal sac and nerve roots. 3. Interval complete obliteration of the L2-3 disc space with vertebral body o n vertebral body. 4. Advanced degenerative disc disease also at L3-4 and L4-5. 5. Extensive marrow edema throughout L2, L3 and L4. Fluid along the L2-3 disc. 6. Change in position and alignment of the posterior pedicle screws in L3 now encroaching into the L2-3 disc and foramen. 7. Multilevel bilateral foraminal stenosis from L2-3 through L5-S1. Central st enosis is more difficult to determine without T2 axial imaging.
[2024-02-09] MEDS: gadobenate dimeglumine 20 mL vial IV (14:46)
== END 2024-02-09 14:38 | disposition home or self-care (01) ==
PROVIDERS: PCP Family Medicine Adult Medicine; Visit Provider Orthopaedic Surgery
DX: M51.360 Other intervertebral disc degeneration, lumbar region with discogenic back pain only (principal); M43.16 Spondylolisthesis, lumbar region; M99.63 Osseous and subluxation stenosis of intervertebral foramina of lumbar region; M43.26 Fusion of spine, lumbar region; M25.78 Osteophyte, vertebrae
CPT/HCPCS: 72148

== ENCOUNTER → 2024-02-21 14:45 | Outpatient (BNVA) | payer MEDICARE, MEDICAID, SELFPAY | PROVIDERS: PCP Family Medicine Adult Medicine; Visit Provider Orthopaedic Surgery | DX: Z09 Encounter for follow-up examination after completed treatment for conditions other than malignant neoplasm (principal) | CPT/HCPCS: 99214 ==

== ENCOUNTER 2024-03-12 17:21 | Inpatient (IN) | payer MEDICARE, MEDICAID, SELFPAY ==
--- OUTSIDE RECORDS SUMMARY | 2024-02-20 14:36 | XMS_ITS ---
Author Name Jade Reyna Address [address] [place] [address] Phone [phone] Organization [facility], NA DOCUMENT DISCLAIMER Multiple document versions may exist, please be sure you review the latest version. The information in the [facility] Progress Note Document represents a providers documented clinical note containing certain health and medical information. It may not contain the complete medical history for the patient and should be independently verified. The represented time in the document is Eastern Time PROVIDER ROUNDING NOTE BASIC Patient:?Fredy?Cassius,?1955,?68y,?M Dialysis?Location:[place] Attending?Clarity Developer:?Rosario Service?Date:?11/14/2023 Service?Provider:?Jade?Axel,?SUPERVISOR TELEPHONE CLERKS I?met?face?to?face?with?the?patient?today. OVERVIEW The?patient?presented?with?ESRD?on?dialysis Primary?cause?of?renal?failure:?Hypertensive?chronic?kidney? disease?with?stage?1?through?stage?4?chronic?kidney?dis ease,?or?unspecified?chronic?kidney?disease Comments:?VSS,?seen?on?HD?machine,?denies?needs?for?me today.? [facility].? Back?pain?is?better. Medications?and?labs?reviewed. LAST?HOSPITALIZATION Discharge?Diagnosis:?R78.81?Bacteremia M46.20?Osteomyelitis?of?vertebra,?site?unspecified E87.5?Hyperkalemia I10?Essential?(primary)?hypertension M54.50?Low?back?pain,?unspecified N50.819?Testicular?pain,?unspecified R70.0?Elevated?erythrocyte?sedimentation?rate D63.1?Anemia?in?chronic?kidney?disease B95.62?Methicillin?resistant?Staphylococcus?aureus?infection?as?t he?cause?of?diseases?classified?elsewhere Admission?Date?06/17/23 Discharge?Date?07/13/23 DIALYSIS?PRESCRIPTION ??IHD?3x?Week?Start?date:?11/02/23 ??Dialyzer:?180NRe?Optiflux ??BFR:?450 ??DFR:?Autoflow?1.5 ??Potassium:?2.0 ??Sodium:?137 ??EDW:?70.5 ??Duration:?3:30 ??Calcium:?2.5 ??Bicarb:?35 ??Rx?updated?on:?11/02/2023 TREATMENT?ASSESSMENT Comments:?Stable. BP?Stand?Pre ??11/09/2023:?137/80 BP?Sit?Pre ??11/11/2023:?123/84 ??11/09/2023:?155/93 ??11/07/2023:?172/120 BP?Stand?Post ??11/11/2023:?157/92 ??11/09/2023:?146/104 ??11/07/2023:?151/92 BP?Sit?Post ??11/11/2023:?135/106 ??11/09/2023:?146/97 ??11/07/2023:?137/38 Tx?Duration ??11/11/2023:?3:31 ??11/09/2023:?3:43 ??11/07/2023:?3:38 Missed?Treatments 0?-?last?30?days 0?-?last?60?days FLUID?ASSESSMENT Comments:?Stable. EDW?(kg) ??11/11/2023:?70.5 ??11/09/2023:?70.5 ??11/07/2023:?70.5 Weight?Pre?(kg) ??11/11/2023:?70.5 ??11/09/2023:?70.1 ??11/07/2023:?72.6 Weight?Post?(kg) ??11/11/2023:?70.7 ??11/09/2023:?70.3 ??11/07/2023:?69.4 PWV?(kg) ??11/11/2023:?0.2 ??11/09/2023:?-0.2 ??11/07/2023:?-1.1 UF?Rate?(mL/kg/hr) ??11/11/2023:?-0.8 ??11/09/2023:?-0.8 ??11/07/2023:?12.7 ADEQUACY?ASSESSMENT Comments:?No?new?labs?to?review spKt/V,?URR ??11/09/2023:?1.35,?71.0 ??10/05/2023:?1.43,?75.0 ??09/07/2023:?1.47,?73.0 ACCESS?ASSESSMENT ??Access?Type:?AVGraft ??Access?SubType:?Biological?-?Bovine ??Access?Status:?Active?(In?Use)?-?01/23/2022 ??Access?Location:?Left?Forearm ??Created:?12/04/2021 Flow ??10/19/2023:?1591 ??09/21/2023:?1215 ??07/25/2023:?1971 Vascular?access?reviewed.?Current?access?is?permanent?and?functioning?well. ANEMIA?ASSESSMENT Comments:?On?IV?iron?and?MISAEL?protocol. HGB?at?goal.? HGB,?TSAT ??11/09/2023:?12.7,?32.0 ??11/02/2023:?13.0,?- ??10/26/2023:?12.8,?- ?? Ferritin ??09/07/2023:?1537.0 ??06/08/2023:?463.0 Mircera,?IVP?(mcg) ??09/23/2023:?30 Iron?Sucrose?(Venofer)?(mg) ??10/05/2023:?50 ??09/28/2023:?50 ??09/21/2023:?50 BMM?ASSESSMENT PTH?controlled.?Calcium?controlled.?Phosphorus?controlled.?BMM?me ds?adherence?acceptable.?No?changes?indicated.? PTH,?Intact ??09/07/2023:?120.0 ??07/27/2023:?76.0 ??06/08/2023:?628.0 ?? Calcium,?Phosphorus ??11/09/2023:?8.6,?4.0 ??10/05/2023:?8.6,?2.1 ??09/07/2023:?9.1,?3.3 Vitamin?D?(Calcitriol)?Oral?(mcg) ??09/23/2023:?0.75 ??09/21/2023:?0.75 ??09/19/2023:?0.75 NUTRITION?ASSESSMENT Potassium?controlled.?Albumin?controlled.?No?changes?indicated.? Potassium,?Albumin ??11/09/2023:?3.8,?3.7 ??10/05/2023:?4.5,?3.5 ??09/07/2023:?5.3,?3.6 ?? eNPCR ??11/09/2023:?0.5 ??10/05/2023:?0.55 ??09/07/2023:?0.64 DIAGNOSIS Chief?Complaint:?N18.6?End?stage?renal?disease Patient?data?updated?11/14/2023?at?12:29?PM Signed?By:?Axel,?Jade,?SUPERVISOR TELEPHONE CLERKS??on?11/14/2023?12:30:49 PM END OF DOCUMENT
--- OUTSIDE RECORDS SUMMARY | 2024-02-20 14:36 | XMS_ITS ---
Author Name Jade Reyna Address [address] [place] [address] Phone [phone] [facility], [facility] DOCUMENT DISCLAIMER Multiple document versions may exist, please be sure you review the latest version. The information in the [facility] Progress Note Document represents a providers documented clinical note containing certain health and medical information. It may not contain the complete medical history for the patient and should be independently verified. The represented time in the document is Eastern Time PROVIDER ROUNDING NOTE BASIC Patient:?Fredy?Cassius,?1955,?68y,?M Dialysis?Location:?[place] Attending?[employer] Person:?Rosario Service?Date:?01/09/2024 Service?Provider:?Jade?Axel,?KARATE BLACK BELT I?met?face?to?face?with?the?patient?today. OVERVIEW The?patient?presented?with?ESRD?on?dialysis Primary?cause?of?renal?failure:?Hypertensive?chronic?kidney? disease?with?stage?1?through?stage?4?chronic?kidney?dis ease,?or?unspecified?chronic?kidney?disease Comments:?VSS,?seen?on?HD?machine,?denies?needs?for?me today.? Medications?and?labs?reviewed. LAST?HOSPITALIZATION Discharge?Diagnosis:?R78.81?Bacteremia M46.20?Osteomyelitis?of?vertebra,?site?unspecified E87.5?Hyperkalemia I10?Essential?(primary)?hypertension M54.50?Low?back?pain,?unspecified N50.819?Testicular?pain,?unspecified R70.0?Elevated?erythrocyte?sedimentation?rate D63.1?Anemia?in?chronic?kidney?disease B95.62?Methicillin?resistant?Staphylococcus?aureus?infection?as?t he?cause?of?diseases?classified?elsewhere Admission?Date?06/17/23 Discharge?Date?07/13/23 DIALYSIS?PRESCRIPTION ??IHD?3x?Week?Start?date:?01/06/24 ??Dialyzer:?180NRe?Optiflux ??BFR:?450 ??DFR:?Autoflow?1.5 ??Potassium:?2.0 ??Sodium:?137 ??EDW:?67.7 ??Duration:?3:30 ??Calcium:?2.5 ??Bicarb:?35 ??Rx?updated?on:?01/05/2024 TREATMENT?ASSESSMENT Comments:?Stable. BP?Sit?Pre ??01/05/2024:?160/113 ??01/04/2024:?163/107 ??01/02/2024:?118/44 BP?Stand?Post ??01/05/2024:?151/98 BP?Sit?Post ??01/05/2024:?151/123 ??01/04/2024:?136/103 ??01/02/2024:?129/83 Tx?Duration ??01/05/2024:?3:34 ??01/04/2024:?3:33 ??01/02/2024:?3:33 Missed?Treatments 0?-?last?30?days 1?-?last?60?days 9/6?-?recent FLUID?ASSESSMENT Comments:?Stable. EDW?(kg) ??01/05/2024:?67.7 ??01/04/2024:?67.7 ??01/02/2024:?67.7 Weight?Pre?(kg) ??01/05/2024:?67.6 ??01/04/2024:?69.3 ??01/02/2024:?69.9 Weight?Post?(kg) ??01/05/2024:?67.2 ??01/04/2024:?68.2 ??01/02/2024:?68.1 PWV?(kg) ??01/05/2024:?-0.5 ??01/04/2024:?0.5 ??01/02/2024:?0.4 UF?Rate?(mL/kg/hr) ??01/05/2024:?1.7 ??01/04/2024:?4.5 ??01/02/2024:?7.4 ADEQUACY?ASSESSMENT Comments:?Stable? spKt/V,?URR ??01/04/2024:?1.69,?78.0 ??12/07/2023:?1.63,?77.0 ??12/02/2023:?1.52,?74.0 ACCESS?ASSESSMENT ??Access?Type:?AVGraft ??Access?SubType:?Biological?-?Bovine ??Access?Status:?Active?(In?Use)?-?01/23/2022 ??Access?Location:?Left?Forearm ??Created:?12/04/2021 Flow ??12/19/2023:?1603 ??11/21/2023:?1323 ??10/19/2023:?1591 Vascular?access?reviewed. ANEMIA?ASSESSMENT Comments:?On?IV?iron?and?MISAEL?protocol. Recent?restart?of?mircera HGB,?TSAT ??01/04/2024:?8.8,?13.0 ??12/28/2023:?9.0,?- ??12/21/2023:?9.0,?- ?? Ferritin ??12/14/2023:?809.0 ??12/07/2023:?2004.0 ??09/07/2023:?1537.0 Mircera,?IVP?(mcg) ??12/16/2023:?50 Iron?Sucrose?(Venofer)?(mg) ??01/02/2024:?100 ??12/30/2023:?100 ??12/28/2023:?100 BMM?ASSESSMENT Comments:?Added?calcitriol. Referred?to?dietitian.? PTH,?Intact ??12/07/2023:?743.0 ??09/07/2023:?120.0 ??07/27/2023:?76.0 ?? Calcium,?Phosphorus ??01/04/2024:?8.4,?3.3 ??12/07/2023:?8.3,?4.1 ??11/09/2023:?8.6,?4.0 Vitamin?D?(Calcitriol)?Oral?(mcg) ??01/04/2024:?0.5 ??01/02/2024:?0.5 ??12/30/2023:?0.5 NUTRITION?ASSESSMENT Potassium?controlled.?Referred?to?dietitian.? Potassium,?Albumin ??01/04/2024:?3.6,?3.6 ??12/07/2023:?3.7,?3.8 ??11/09/2023:?3.8,?3.7 ?? eNPCR ??01/04/2024:?0.54 ??12/02/2023:?0.6 ??11/09/2023:?0.5 PHYSICAL?EXAM Exam?Not?Performed. DIAGNOSIS Chief?Complaint:?N18.6?End?stage?renal?disease Patient?data?updated?01/09/2024?at?1:50?PM Signed?By:?Axel,?Jade,?KARATE BLACK BELT??on?01/09/2024?1:51:59 PM END OF DOCUMENT
--- OUTSIDE RECORDS SUMMARY | 2024-02-20 14:36 | XMS_ITS ---
Author Name Jade Reyna Address [address] [place] [address] Phone [phone] Organization [facility], NA DOCUMENT DISCLAIMER Multiple document versions may exist, please be sure you review the latest version. The information in the [facility] Progress Note Document represents a providers documented clinical note containing certain health and medical information. It may not contain the complete medical history for the patient and should be independently verified. The represented time in the document is Eastern Time PROVIDER ROUNDING NOTE BASIC Patient:?Fredy?Cassius,?1955,?68y,?M Dialysis?Location:?[place] Attending?Detail Maker [employer] Fitter:?Rosario Service?Date:?12/14/2023 Service?Provider:?Jade?Axel,?NEON SIGN WORKER I?met?face?to?face?with?the?patient?today. OVERVIEW The?patient?presented?with?ESRD?on?dialysis Primary?cause?of?renal?failure:?Hypertensive?chronic?kidney? disease?with?stage?1?through?stage?4?chronic?kidney?dis ease,?or?unspecified?chronic?kidney?disease Comments:?VSS,?seen?on?HD?machine,?denies?needs?for?me today.? Medications?and?labs?reviewed. LAST?HOSPITALIZATION Discharge?Diagnosis:?R78.81?Bacteremia M46.20?Osteomyelitis?of?vertebra,?site?unspecified E87.5?Hyperkalemia I10?Essential?(primary)?hypertension M54.50?Low?back?pain,?unspecified N50.819?Testicular?pain,?unspecified R70.0?Elevated?erythrocyte?sedimentation?rate D63.1?Anemia?in?chronic?kidney?disease B95.62?Methicillin?resistant?Staphylococcus?aureus?infection?as?t he?cause?of?diseases?classified?elsewhere Admission?Date?06/17/23 Discharge?Date?07/13/23 DIALYSIS?PRESCRIPTION ??IHD?3x?Week?Start?date:?12/12/23 ??Dialyzer:?180NRe?Optiflux ??BFR:?450 ??DFR:?Autoflow?1.5 ??Potassium:?2.0 ??Sodium:?137 ??EDW:?68.1 ??Duration:?3:30 ??Calcium:?2.5 ??Bicarb:?35 ??Rx?updated?on:?12/12/2023 TREATMENT?ASSESSMENT Comments:?Stable. BP?Stand?Pre ??12/12/2023:?115/88 BP?Sit?Pre ??12/12/2023:?128/80 ??12/07/2023:?152/100 ??12/05/2023:?136/105 BP?Stand?Post ??12/12/2023:?134/89 BP?Sit?Post ??12/12/2023:?135/79 ??12/07/2023:?102/75 ??12/05/2023:?177/118 Tx?Duration ??12/12/2023:?3:35 ??12/07/2023:?3:35 ??12/05/2023:?1:37 Missed?Treatments 1?-?last?30?days 1?-?last?60?days 9/6?-?recent FLUID?ASSESSMENT Comments:?Stable. EDW?(kg) ??12/12/2023:?68.5 ??12/07/2023:?69.5 ??12/05/2023:?69.5 Weight?Pre?(kg) ??12/12/2023:?69.6 ??12/07/2023:?66.6 ??12/05/2023:?67.7 Weight?Post?(kg) ??12/12/2023:?68.1 ??12/07/2023:?66.9 ??12/05/2023:?68.3 PWV?(kg) ??12/12/2023:?-0.4 ??12/07/2023:?-2.6 ??12/05/2023:?-1.2 UF?Rate?(mL/kg/hr) ??12/12/2023:?6.1 ??12/07/2023:?-1.3 ??12/05/2023:?-5.4 ADEQUACY?ASSESSMENT Adequacy?target?met.? spKt/V,?URR ??12/07/2023:?1.63,?77.0 ??12/02/2023:?1.52,?74.0 ??11/09/2023:?1.35,?71.0 ACCESS?ASSESSMENT ??Access?Type:?AVGraft ??Access?SubType:?Biological?-?Bovine ??Access?Status:?Active?(In?Use)?-?01/23/2022 ??Access?Location:?Left?Forearm ??Created:?12/04/2021 Flow ??11/21/2023:?1323 ??10/19/2023:?1591 ??09/21/2023:?1215 Vascular?access?reviewed. ANEMIA?ASSESSMENT Comments:?On?IV?iron?and?MISAEL?protocol. HGB,?TSAT ??12/07/2023:?10.0,?24.0 ??11/30/2023:?11.4,?- ??11/23/2023:?12.1,?- ?? Ferritin ??12/07/2023:?2004.0 ??09/07/2023:?1537.0 ??06/08/2023:?463.0 Mircera,?IVP?(mcg) ??09/23/2023:?30 Iron?Sucrose?(Venofer)?(mg) ??10/05/2023:?50 ??09/28/2023:?50 ??09/21/2023:?50 BMM?ASSESSMENT Referred?to?dietitian.? PTH,?Intact ??12/07/2023:?743.0 ??09/07/2023:?120.0 ??07/27/2023:?76.0 ?? Calcium,?Phosphorus ??12/07/2023:?8.3,?4.1 ??11/09/2023:?8.6,?4.0 ??10/05/2023:?8.6,?2.1 Vitamin?D?(Calcitriol)?Oral?(mcg) ??09/23/2023:?0.75 ??09/21/2023:?0.75 ??09/19/2023:?0.75 NUTRITION?ASSESSMENT Potassium?controlled.?Albumin?below?goal.?No?changes?indicated. Potassium,?Albumin ??12/07/2023:?3.7,?3.8 ??11/09/2023:?3.8,?3.7 ??10/05/2023:?4.5,?3.5 ?? eNPCR ??12/02/2023:?0.6 ??11/09/2023:?0.5 ??10/05/2023:?0.55 PHYSICAL?EXAM Exam?Not?Performed. DIAGNOSIS Chief?Complaint:?N18.6?End?stage?renal?disease Patient?data?updated?12/14/2023?at?4:13?PM Signed?By:?Axel,?Jade,?NEON SIGN WORKER??on?12/14/2023?4:13:44 PM END OF DOCUMENT
--- OUTSIDE RECORDS SUMMARY | 2024-02-20 14:36 | XMS_ITS ---
Author Name Sheila Thompson Address [address] [place] [address] Phone [phone] Organization [facility], NA DOCUMENT DISCLAIMER Multiple document versions may exist, please be sure you review the latest version. The information in the [facility] Progress Note Document represents a providers documented clinical note containing certain health and medical information. It may not contain the complete medical history for the patient and should be independently verified. The represented time in the document is Eastern Time PROVIDER ROUNDING NOTE COMPREHENSIVE Patient:?Fredy?Cassius,?1955,?68y,?M Dialysis?Location:[place] Attending?Refining Equipment Operator:?Rosario Service?Date:?01/04/2024 Service?Provider:?Sheila?Jay,?FIREBOAT OPERATOR I?met?face?to?face?with?the?patient?today. OVERVIEW The?patient?presented?with?ESRD?on?dialysis Primary?cause?of?renal?failure:?Hypertensive?chronic?kidney? disease?with?stage?1?through?stage?4?chronic?kidney?dis ease,?or?unspecified?chronic?kidney?disease Comments:?VSS,?seen?on?HD?machine,?denies?needs?for?me today.? Medications?and?labs?reviewed. LAST?HOSPITALIZATION Discharge?Diagnosis:?R78.81?Bacteremia M46.20?Osteomyelitis?of?vertebra,?site?unspecified E87.5?Hyperkalemia I10?Essential?(primary)?hypertension M54.50?Low?back?pain,?unspecified N50.819?Testicular?pain,?unspecified R70.0?Elevated?erythrocyte?sedimentation?rate D63.1?Anemia?in?chronic?kidney?disease B95.62?Methicillin?resistant?Staphylococcus?aureus?infection?as?t he?cause?of?diseases?classified?elsewhere Admission?Date?06/17/23 Discharge?Date?07/13/23 DIALYSIS?PRESCRIPTION ??IHD?3x?Week?Start?date:?12/30/23 ??Dialyzer:?180NRe?Optiflux ??BFR:?450 ??DFR:?Autoflow?1.5 ??Potassium:?2.0 ??Sodium:?137 ??EDW:?67.7 ??Duration:?3:30 ??Calcium:?2.5 ??Bicarb:?35 ??Rx?updated?on:?12/30/2023 TREATMENT?ASSESSMENT Comments:?Stable. Blood?pressure?controlled.?No?changes?indicated.? BP?Stand?Pre ??12/28/2023:?157/106 BP?Sit?Pre ??01/02/2024:?118/44 ??12/30/2023:?139/109 ??12/28/2023:?171/96 BP?Stand?Post ??12/28/2023:?123/68 BP?Sit?Post ??01/02/2024:?129/83 ??12/30/2023:?159/100 ??12/28/2023:?139/84 Tx?Duration ??01/02/2024:?3:33 ??12/30/2023:?3:39 ??12/28/2023:?3:33 Missed?Treatments 1?-?last?30?days 1?-?last?60?days 9/?-?recent FLUID?ASSESSMENT Comments:?Stable. Fluid?status?acceptable.?Interdialytic?weight?gain?acceptable.?No ?changes?indicated.? EDW?(kg) ??01/02/2024:?67.7 ??12/30/2023:?68.2 ??12/28/2023:?69.0 Weight?Pre?(kg) ??01/02/2024:?69.9 ??12/30/2023:?68.2 ??12/28/2023:?69.4 Weight?Post?(kg) ??01/02/2024:?68.1 ??12/30/2023:?67.7 ??12/28/2023:?68.2 PWV?(kg) ??01/02/2024:?0.4 ??12/30/2023:?-0.5 ??12/28/2023:?-0.8 UF?Rate?(mL/kg/hr) ??01/02/2024:?7.4 ??12/30/2023:?2 ??12/28/2023:?5 ADEQUACY?ASSESSMENT Comments:?No?new?labs?to?review Adequacy?target?met.?Prescription?compliance?acceptable.?No?changes?indicated.? spKt/V,?URR ??12/07/2023:?1.63,?77.0 ??12/02/2023:?1.52,?74.0 ??11/09/2023:?1.35,?71.0 ACCESS?ASSESSMENT ??Access?Type:?AVGraft ??Access?SubType:?Biological?-?Bovine ??Access?Status:?Active?(In?Use)?-?01/23/2022 ??Access?Location:?Left?Forearm ??Created:?12/04/2021 Flow ??12/19/2023:?1603 ??11/21/2023:?1323 ??10/19/2023:?1591 Vascular?access?reviewed.?Current?access?is?permanent?and?functioning?well. ANEMIA?ASSESSMENT Comments:?On?IV?iron?and?MISAEL?protocol. HGB ??12/28/2023:?9.0 ??12/21/2023:?9.0 ??12/14/2023:?9.3 ?? Ferritin ??12/14/2023:?809.0 ??12/07/2023:?2004.0 ??09/07/2023:?1537.0 Mircera,?IVP?(mcg) ??12/16/2023:?50 Iron?Sucrose?(Venofer)?(mg) ??01/02/2024:?100 ??12/30/2023:?100 ??12/28/2023:?100 BMM?ASSESSMENT Comments:?Added?calcitriol. No?new?labs?to?review PTH,?Intact ??12/07/2023:?743.0 ??09/07/2023:?120.0 ??07/27/2023:?76.0 ?? Calcium,?Phosphorus ??12/07/2023:?8.3,?4.1 ??11/09/2023:?8.6,?4.0 ??10/05/2023:?8.6,?2.1 Vitamin?D?(Calcitriol)?Oral?(mcg) ??01/02/2024:?0.5 ??12/30/2023:?0.5 ??12/28/2023:?0.5 NUTRITION?ASSESSMENT Comments:?No?new?labs?to?review Potassium,?Albumin ??12/07/2023:?3.7,?3.8 ??11/09/2023:?3.8,?3.7 ??10/05/2023:?4.5,?3.5 ?? eNPCR ??12/02/2023:?0.6 ??11/09/2023:?0.5 ??10/05/2023:?0.55 PHYSICAL?EXAM Exam?Performed.?Vital?Signs?Reviewed.?EXT?-?No?edema. DIAGNOSIS Chief?Complaint:?N18.6?End?stage?renal?disease Patient?is?stable.?Patient?discussed?with?nursing. Patient?data?updated?01/04/2024?at?3:47?PM Signed?By:?Jay,?Sheila,?FIREBOAT OPERATOR??on?01/04/2024?3:48:32?PM END OF DOCUMENT
--- OUTSIDE RECORDS SUMMARY | 2024-02-20 14:36 | XMS_ITS | Continuity of Care Document ---
Author Name Unknown Organization [facility] Address [address] [place] [address]- Care Team Providers Care Platen Grinder Name Role Phone Kian Colon MD Primary Care Physician Unavaila ble Encounter [employer] Number [id number] Date(s): 01/06/24 - 01/06/24 [facility] [address] [place] [address] [phone] scan, stomach(Discharge Diagnosis) - 01/06/24 Epigastric pain(Discharge Diagnosis) - 01/06/24 Discharge Disposition: .Discharge to Home (Routine) Attending Physician: Brittany Melton MD Admitting Physician: Brittany Melton MD Allergies, Adverse Reactions, Alerts Substance Reaction Severity Status Latex rash Mild Active Assessment and Plan Extracted from: Title:H&P Note Author:Brittany Melton MD Date: Orders: cefadroxil, 500 mg, = 1 cap, By mouth, MWF (once daily Mon, Wed, Fri), 90 Days, 39 cap, 0, 0, 01/11/24 13:20:00 CDT, Substitution Permitted, [facility] Cisse, 69, Height (inches) (Clinical), 10/13/23 13:03:00 CDT, in, 72.73, Weight (kg) (Clini... Sodium Chloride 0.9% intravenous solution 1,000 mL, Route: IV, Routine, Start Date: 01/06/24 7:17:00 CDT, 90 Days, Stop date 04/05/24 7:16:00 CRYPTOLOGIC TECHNICIAN OPERATOR/ANALYST, Rate= 15 ml/hr, hr, Total Vol ml = 1,000, Disp Location: [facility] - PACU, Populate Charting Weight From Order, 1.82, m2 sodium chloride flush, 5 mL, INJ, Route: IVP, Q12H, Start Date: 01/06/24 9:00:00 CDT, Duration: 90 Days, Stop date: 04/04/24 21:00:00 CRYPTOLOGIC TECHNICIAN OPERATOR/ANALYST, Routine, Disp Location: [facility] PACU, GEN DISP sodium chloride flush, 5 mL, INJ, Route: IVP, Q10Min, PRN, See Comment Note, Start Date: 01/06/24 7:17:00 CDT, Duration: 90 Days, Stop date: 04/05/24 6:16:00 CRYPTOLOGIC TECHNICIAN OPERATOR/ANALYST, Routine, Disp Location: [facility] PACU, [facility] DISP Consent, Gastroscopy with possible dilatation and biopsies (Add RFA and EMR consent if needed) Consent, gastroscopy with possible dilatation and/or biopsy (add feeding tube placement as needed) Initiate Plan, Gastroscopy OP Pre Admit 1 Initiate Plan, Gastroscopy OP Pre Admit 2 Initiate Plan, Gastroscopy OP Pre Procedure Initiate Plan, IV Device Maintenance Protocol Adult IV Device Maintenance Protocol - Adult, Initiate IV Insertion, Place 20g cathlon. If patient has a port, access with appropriate needle. Notify Provider Nursing Communication Order, Initiate Anesthesia Pre/Post Orders (for MAC to General Anesthesia) Nursing Communication Order, If Anesthesia involved Initiate Anesthesia Pre- Admission 1 orders Nursing Communication Order, If Anesthesia involved Initiate Anesthesia Pre- Admission 2 orders Nursing Communication Order, If on Coumadin (Warfarin) in last 5 days, obtain STAT Protime. Order a urine test on all women between the ages of 10-55 unless the patient has had a hysterectomy, sterilization or has completed menopause/ceased menses for one calendar year. ?? Will proceed with EGD??to evaluate??for gastric??outlet obstruction. ?? Could be erosive/ulcerative??upper GI??disease/H pylori infection. Differential includes??gastroparesis Risk of procedure including sedation related complication, bleeding perforation??were discussed with patient, and he agreed to proceed.? Extracted from: Title:Instructions to Patients Author:Lynda Ortiz RN Date:01/06/24 Future Appointments Appointment Date:01/24/2024 03:15:00 PM Scheduled Provider:Brittany Cid NP Location:[facility] Appointment Type:New Patient Appointment Date:01/31/2024 02:30:00 PM Scheduled Provider:Orly WHITEHEAD, [place] MS Location:[facility] Appointment Type:Established Patient Future Scheduled Tests Laboratory* Hepatic Function Panel 12/20/23 * Hepatitis C Fibrosure 09/08/23 * Hepatitis Bs Antigen 09/08/23 * Hepatitis A Total Ab, S 09/08/23 * HBc Total Ab, S 09/08/23 Radiology* XR Cervical Spine AP Lateral 12/01/22 * XR Cervical Spine 4 or 5 View 01/03/23 * XR Cervical Spine 4 or 5 View 04/06/23 Immunizations Given and Recorded Vaccine Date Status Refusal Reason influenza virus vaccine 12/18/13 Given Medications acetaminophen-hydrocodone 325 mg-5 mg oral tablet 2 tab, By mouth, TID, PRN for pain, 0, 0, Substitution Permitted Start Date: 09/08/23 Status: Ordered Advair Diskus 100 mcg-50 mcg inhalation powder 1 puff, Inhalation, BID, Refill(s) 0 Start Date: 06/18/23 Status: Ordered Albuterol (Eqv-Proventil HFA) 90 mcg/inh inh aerosol 2 puff, Inhalation, Q6H, Refill(s) 0 Start Date: 06/18/23 Status: Ordered Ambien 10 mg oral tablet 10 mg, = 1 tab, By mouth, at bedtime, PRN Insomnia, 15 tab, 0, Substitution Permitted Start Date: 06/18/23 Status: Ordered amLODIPine 2.5 mg oral tablet 2.5 mg = 1 tab, By mouth, Daily Start Date: 10/25/22 Status: Ordered Ativan 0.5 mg oral tablet 0.5 mg, = 1 tab, By mouth, Q6H, PRN for anxiety, Substitution Permitted Start Date: 09/08/23 Status: Ordered atorvastatin 20 mg oral tablet 20 mg = 1 tab, By mouth, Daily Start Date: 10/25/22 Status: Ordered benzonatate 100 mg, By mouth, TID, PRN Cough, # 30 cap, Refill(s) 0 Start Date: 06/18/23 Status: Ordered calcium acetate 667 mg oral tablet 1,334 mg = 2 tab, By mouth, TID Start Date: 10/25/22 Status: Ordered carvedilol 25 mg oral tablet 25 mg = 1 tab, By mouth, BID, Refill(s) 0 Start Date: 11/17/20 Status: Ordered cefadroxil 500 mg oral capsule 500 mg, = 1 cap, By mouth, MWF (once daily Mon, Wed, Tue), 90 Days, 39 cap, 0, 0, 01/11/24 13:20:00CDT, Substitution Permitted, [facility] C[facility], 69, Height (inches) (Clinical), 10/13/23 13:03:00 CDT, in, 72.73, Weight (kg) (Clini... Start Date: 10/13/23 Stop Date: 01/11/24 Status: Ordered clobetasol topical 0.05% cream 1 application, Topical, BID, # 15 g, Refill(s) 0 Start Date: 06/18/23 Status: Ordered docusate sodium 250 mg oral capsule 250 mg = 1 cap, By mouth, Daily, PRN for constipation Start Date: 10/25/22 Status: Ordered doxepin 10 mg oral capsule 10 mg = 1 cap, By mouth, at bedtime, Refill(s) 0 Start Date: 06/18/23 Status: Ordered Dulcolax Stool Softener 100 mg oral capsule 100 mg = 1 cap, By mouth, Q24H, PRN for constipation Start Date: 09/08/23 Status: Ordered Flonase 50 mcg/inh nasal spray 50 = mcg 1 spray, Both Nostrils, BID, # 16 g, Refill(s) 0 Start Date: 06/18/23 Status: Ordered hydrALAZINE 50 mg oral tablet 75 mg = 1.5 tab, By mouth, TID Start Date: 10/25/22 Status: Ordered methocarbamol 750 mg oral tablet 1,500 mg = 2 tab, By mouth, TID, Refill(s) 0 Start Date: 01/03/23 Status: Ordered metoclopramide 10 mg, By mouth, BID, PRN as needed for nausea/vomiting, Refill(s) 0 Start Date: 04/08/23 Status: Ordered mirtazapine 15 mg oral tablet 15 mg = 1 tab, By mouth, at bedtime Start Date: 10/25/22 Status: Ordered nitroglycerin 0.3 mg sublingual tablet 0.3 mg = 1 tab, SL, Q5Min, PRN for chest pain, # 100 tab, Refill(s) 0 Start Date: 06/18/23 Status: Ordered Protonix 40 mg oral delayed release tablet 40 mg = 1 tab, By mouth, BID, Take on empty stomach 30 minutes before meals, # 60 tab, Refill(s) 0,Pharmacy: [id number], [id number], TAB, 1 tab By mouth BID,Instr:Take on empty stomach 30 minutes before meal... Start Date: 01/06/24 Status: Ordered RenaPlex 1 tab, By mouth, Daily, Refill(s) 0 Start Date: 07/15/22 Status: Ordered Problem List Condition Confirmation Course Effective Dates Status H ealth Status Informant Anemia Confirmed Active Cervical kyphosis Confirmed Active Chronic combined systolic and diastolic CHF (congestive heart failure) Confirmed Active Chronic hepatitis C Confirmed Active Chronic HFrEF (heart failure with reduced ejection fraction) Confirmed Active Abnormal CT scan, stomach Confirmed Active Bilateral renal cysts Confirmed Active End-stage renal disease on hemodialysis Confirmed Active Epigastric pain Confirmed Active Ex-smoker Confirmed Active patient Heart failure with reduced ejection fraction Confirmed Active History of methicillin resistant staphylococcus aureus (MRSA) Confirmed Active Hyperkalemia Confirmed Active Hypertension Confirmed Active Volume overload Confirmed Active 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 Problem updated by rule: [id number]_VRE_1. 2Urine Culture from Catch Urine collected on 01-SEP-2022 09:36:00 CDT tested positive for VRE. Problem added by rule: [id number]_[id number]_VRE_1 Procedures Procedure Date Related Diagnosis Body Site Status EGD TRANSORAL BIOPSY SINGLE/MULTIPLE 01/06/24 Completed Esophagogastroduodenoscopy - Endo with Anesthesia 1 01/06/24 Completed C2-7 & C7-T1 ACDF 2 10/28/22 Compl eted C2-T1 PCDF 10/27/22 Completed Evac of Cervical Hematoma 10/26/22 Completed C3-5 Corpectomies 3 10/25/22 Compl eted back surgery 2020 Completed cardiac stent x3 2020 Complete d carpal tunnel release 4 2012 C ompleted inguinal hernia repair 2012 Completed lumbar discectomy 2013 Complet ed 1auto-populated from documented surgical case 2OPERATIVE PROCEDURE PERFORMED: 1.?Placement of segmental instrumentation from C2 to T1 for the purpose of creating tension bandto maintain cervical lordosis and to encourage healing of anterior construct. 2. ??[place] dorsal fusion using allograft at C2-3 C3-4, C4-5,??C5-6, C6-7 and C7-T1. 3. ??Use of spinal navigation. ? 3? OPERATIVE PROCEDURE PERFORMED: 1.?Anterior cervical approach with C3, C4 and C5 corpectomies (three levels) with decompression of the spinal cord and bilateral C3, C4, C5, C6 nerve roots 2.?Arthrodesis, anterior, for spinal deformity, 3 spinal segments. 3.?Insertion of PEEK spacer from C2 to C6. 4. C2 to C6 anterior cervical plating and instrumentation. 5. Application of [place] tongs and cranial traction for reduction of severe deformity. 6. SSEP monitoring. 7. Use of operative microscope. 4right 5left Results Laboratory List Name Date Hemogram 01/06/24 Most recent to oldest [Reference Range]: 1 iAnion Gap 13 1 (01/06/24 7:35 AM) iChloride 98 mEq/L 2 (01/06/24 7:35 AM) iCreatinine 3.6 mg/dL 3 (01/06/24 7:35 AM) iGlucose 91 mg/dL 4 (01/06/24 7:35 AM) iHematocrit 27.0 % 5 (01/06/24 7:35 AM) iHemoglobin 9.2 g/dL 6 (01/06/24 7:35 AM) iPotassium 4.2 mEq/L 7 (01/06/24 7:35 AM) iSodium 142 mEq/L 8 (01/06/24 7:35 AM) iBUN 19 mg/dL 9 (01/06/24 7:35 AM) WBC [4.8-10.8 Thous/mm3] 5.1 Thous/mm3 (01/06/24 7:30 AM) Hct [42.0-52.0 %] 29.7 % *LOW* (01/06/24 7:30 AM) Hgb [14.0-18.0 g/dL] 9.2 g/dL *LOW* (01/06/24 7:30 AM) RBC [4.60-6.20 Million/mm3] 2.81 Million /mm3 *LOW* (01/06/24 7:30 AM) MCV [80.0-100.0 fl] 105.7 fl *HI* (01/06/24 7:30 AM) MCH [26.0-34.0 pg] 32.7 pg (01/06/24 7:30 AM) MCHC [31.0-36.5 g/dL] 31.0 g/dL (01/06/24 7:30 AM) RDW [10.4-14.4 %] 14.8 % *HI* (01/06/24 7:30 AM) Platelets [130-440 Thous/mm3] 170 Thous/ mm3 (01/06/24 7:30 AM) MPV [9.4-12.4 fl] 11.1 fl (01/06/24 7:30 AM) 1Result Comment: Performed at:[address], [address] 2Result Comment: Performed at:[address], [address] Reference Ranges: 98 - 107 mEq/L 3Result Comment: Performed at:[place] [address] [place], [address] Reference Ranges: Males: 0.6 - 1.3 mg/dL Females: 0.6 - 1.2 mg/dL 4Result Comment: Performed at:[address], [address] Reference Ranges: Age 0 - 24 hours: 45 - 115 mg/dL Age 24 hours - 30 days: 55 - 115 mg/dL Age > 30 days: 70 - 100 mg/dL Critical Results Requiring Immediate Notification: Age <72 Hours: <40 or >350 mg/dL Age >72 Hours: <50 or >400 mg/dL 5Result Comment: Performed at:[place] [address] [place], [address] Reference Ranges: 38 - 51 % 6Result Comment: Performed at:[place] [address] [place], [address] Reference Ranges: 12 - 17 g/dL 7Result Comment: Performed at:[place] [address] [place], [address] Reference Ranges: 3.5 - 5.1 mEq/L 8Result Comment: Performed at:[place] [address] [place], [address] Reference Ranges: 136 - 145 mEq/L 9Result Comment: Performed at:[place] [address] [place], [address] Reference Ranges: 7 - 18 mg/dL Vital Signs Most recent to oldest [Reference Range]: 1 2 3 Blood Pressure 116/69mmHg (01/06/24 9:12 AM) 118/81mmHg (01/06/24 8:56 AM) 146/85mmHg (01/06/24 7:07 AM) Height (inches) (Clinical) 69 in (01/06/24 7:07 AM) Weight (kg) (Clinical) 65.3 kg (01/06/24 7:07 AM) BMI (Clinical) 21.2 kg/m2 (01/06/24 7:07 AM) Scale Type Bed (01/06/24 7:07 AM) Social History Social History Type Response Smoking Status Former smoker; Smoke less tobacco use: Never; Has the patient smoked in the last 365 days, even once? No; Type: Cigarettes; Tobacco use per day: 4 or less cigarettes(less than 1/4 pack)/day in last 30 days 1 entered on: 06/17/23 Sex Male 1stopped 1 year ago Implantable Device List Procedure Provider Procedure Date Device Type Site Fusion Prone Cervical with Instrumentati Unknown 10/27/22 Unknown Spine - Cervical Device Identifier Serial Number Lot or Batch Number Manufacturing Date Expiration Date Distinct Identification Code MRI Safety Implantable Status Assigning Authority Unknown Unknown [id number] Unknown 08/18/25 Unknown Unknown Active Unknown Unknown Unknown [id number] Unknown 08/18/25 Unknown Unknown Active Unknown Unknown Unknown [id number] Unknown 09/01/30 Unknown Unknown Active Unknown Unknown Unknown [id number] Unknown 09/03/30 Unknown Unknown Active Unknown [id number] Unknown [id number] Unknown 02/07/26 Unknown Unknown Active HIBCC Unknown [id number] Unknown Unknown 11/25/23 Unknown Unknown Active Unknown Unknown Unknown [id number] Unknown 06/02/24 Unknown Unknown Active Unknown Unknown Unknown Unknown Unknown Unknown Unknown Unknown Active Unk nown Unknown Unknown Unknown Unknown Unknown Unknown Unknown Active Unk nown Unknown Unknown Unknown Unknown Unknown Unknown Unknown Active Unk nown Unknown Unknown Unknown Unknown Unknown Unknown Unknown Active Unk nown Unknown Unknown Unknown Unknown Unknown Unknown Unknown Active Unk nown Procedure Provider Procedure Date Device Type Site Corpectomy Anterior Cervical Unknown 10/25/22 Unknown Spine - Cervical Device Identifier Serial Number Lot or Batch Number Manufacturing Date Expiration Date Distinct Identification Code MRI Safety Implantable Status Assigning Authority Unknown [id number] Unknown Unknown 01/11/26 Unknown Unknown Active Unknown Procedure Provider Procedure Date Device Type Site Unknown Unknown 10/25/22 Unknown Spine - Cervic al Device Identifier Serial Number Lot or Batch Number Manufacturing Date Expiration Date Distinct Identification Code MRI Safety Implantable Status Assigning Authority Unknown Unknown [id number] Unknown 01/11/26 Unknown Unknown Active Unknown Unknown Unknown 56HV Unknown 10/11/26 Unknown Unknown Active Unkn own Unknown Unknown [id number] Unknown 04/25/27 Unknown Unknown Active Unknown Unknown Unknown 93NF Unknown 01/07/30 Unknown Unknown Active Unkn own Unknown Unknown Unknown Unknown Unknown Unknown Unknown Active Unk nown Unknown Unknown Unknown Unknown Unknown Unknown Unknown Active Unk nown Unknown Unknown Unknown Unknown Unknown Unknown Unknown Active Unk nown Procedure Provider Procedure Date Device Type Site Extraction Cataract Phacoemulsification Unknown 12/18/20 Unknown Eye, Right Device Identifier Serial Number Lot or Batch Number Manufacturing Date Expiration Date Distinct Identification Code MRI Safety Implantable Status Assigning Authority Unknown [id number] Unknown Unknown 08/26/25 Unknown Unknown Active Unknown Surgical operation note * Brittany Melton MD: PERFORM Brittany Melton MD: PERFORM, MODIFY Brittany Melton MD: MODIFY, SIGN Brittany Melton MD: SIGN, VERIFY Brittany Melton MD: VERIFY Event Display: Operative Report Authored Date: [id number] Patient: ERASMO GEE Age: 68 years Sex: Male : 1955 Associated Diagnoses: None Author: Brittany Melton MD Images Procedure images: Image 7 Image 9 Image 8 Image 6 Image 5 Image 4 Image 3 Image 2 Image 1 . EGD Procedure note: DATE 01/06/2024 OPERATION/PROCEDURE Esophagogastroduodenoscopy with biopsies INDICATIONS Epigastric pain, abnormal CT scan of the stomach REFERRING PROVIDER Kian Colon CONSENT FOR OPERATION OR PROCEDURE The risks, benefits, and alternatives of the procedure and sedation were discussed with the patient in detail today and all questions were answered. The patient elects to proceed with the procedure and sedation as outlined. HISTORY OF PRESENT ILLNESS See HPI ASA CATEGORY III PREOPERATIVE ANESTHESIA ASSESSMENT The sedation plan was discussed with the patient today and they are a satisfactory candidate to proceed with deep sedation. PROCEDURAL MEDICATIONS Per anesthesia DESCRIPTION OF OPERATION/PROCEDURE Prior to proceeding, the patient???s name, date of , and procedure to be undertaken was verified with a time out. The patient was then placed in the left lateral decubitus position. The patient was monitored continuously with pulse oximetry, blood pressure monitoring, and direct observations. Moderate sedation service was provided by myself, and administered by a licensed professional under my direct supervision. A bite-block was placed. An adult Olympus endoscope was then placed in the oropharynx and advanced.The?? esophagus was easily intubated. The endoscope was advanced to the third portion of the duodenum and then slowly withdrawn. The esophagus appeared endoscopically normal and the Z-line was normal at 40 cm from the incisors. Diaphragmatic hiatus was at 40 cm. No hiatal hernia. No esophagitis, esophageal varices or strictures. The gastric body and retroflexed view of the fundus revealed no abnormalities. No retained food in the stomach The antrum was normal. The pylorus was normal. Random biopsies were obtained to rule out Helicobacter pylori gastritis. The duodenal bulb had patchy erythema and nodularity, biopsies were obtained. Rest of the duodenal appeared endoscopically normal. Excess air was removed and the endoscope withdrawn. The patient was assessed and was in satisfactory condition at the termination of the procedure, then transferred to the recovery area. PHOTOGRAPHS Yes BIOPSY yes COMPLICATIONS None immediately. IMPRESSION Endoscopy evidence for duodenitis, but no gastric outlet obstruction. No gastric ulcer or duodenal ulcer. Biopsies were obtained. PLAN Protonix p.o. b.i.d.. Await histology. Electronically signed by:Brittany Melton MD 01/06/24 09:22 History and physical note * Linh WHITEHEAD, Brittany: PERFORM Event Display: History and Physicals Authored Date: [id number] Chief Complaint ESOPHAGOGASTRODUODENOSCOPY - ENDO W/ANES [id number] Care Team Primary Care Physician??- Isaiah WHITEHEAD, Kian Admitting Physician - Linh WHITEHEAD, Brittany Attending Physician - Brittany Melton MD Arrival Date/Time??- 01/06/2024 06:44:00 History of Present Illness 68-year-old with??CHF,??end-stage??kidney??disease??and??cervical cord??compression??with??myelopathy??who went??to the ED with??acute onset abdominal pain.?? CT abdomen showed??distended??stomach.??No wall??thickening or mass.?? Ultrasound showed??no gallstone.?? He is still having??the pain.?? De nies any??nausea or??vomiting. ? Review of Systems See HPI. All other ROS reviewed as negative or not pertinent. Physical Exam Vitals & Measurements T:??97.1?F?? HR:??84?? RR:??21?? BP:??146/85?? SpO2:??94%?? WT:??65.3??kg?? General: In no acute distress. HEENT: No scleral icterus, PERRLA CV: Regular rate and rhythm?? Chest: Respirations even and unlabored.?? No wheezing. Abdomen: No tenderness, non distended Skin: Warm and dry?? Musculoskeletal: no large joint swelling Neuro: AAOX3 ?? Assessment/Plan Orders: cefadroxil, 500 mg, = 1 cap, By mouth, MWF (once daily Mon, Wed, Tue), 90 Days, 39 cap, 0, 0, 01/11/24 13:20:00 CDT, Substitution Permitted, [facility], 69, Height (inches) (Clinical), 10/13/23 13:03:00 CDT, in, 72.73, Weight (kg) (Clini... Sodium Chloride 0.9% intravenous solution 1,000 mL, Route: IV, Routine, Start Date: 01/06/24 7:17:00 CDT, 90 Days, Stop date 04/05/24 7:16:00 CRYPTOLOGIC TECHNICIAN OPERATOR/ANALYST, Rate= 15 ml/hr, hr, Total Vol ml = 1,000, Disp Location: [facility] - PACU, Populate Charting Weight From Order, 1.82, m2 sodium chloride flush, 5 mL, INJ, Route: IVP, Q12H, Start Date: 01/06/24 9:00:00 CDT, Duration: 90 Days, Stop date: 04/04/24 21:00:00 CRYPTOLOGIC TECHNICIAN OPERATOR/ANALYST, Routine, [facility], GEN DISP sodium chloride flush, 5 mL, INJ, Route: IVP, Q10Min, PRN, See Comment Note, Start Date: 01/06/24 7:17:00 CDT, Duration: 90 Days, Stop date: 04/05/24 6:16:00 CRYPTOLOGIC TECHNICIAN OPERATOR/ANALYST, Routine, Disp [facility] Consent, Gastroscopy with possible dilatation and biopsies (Add RFA and EMR consent if needed) Consent, gastroscopy with possible dilatation and/or biopsy (add feeding tube placement as needed) Initiate Plan, Gastroscopy OP Pre Admit 1 Initiate Plan, Gastroscopy OP Pre Admit 2 Initiate Plan, Gastroscopy OP Pre Procedure Initiate Plan, IV Device Maintenance Protocol Adult IV Device Maintenance Protocol - Adult, Initiate IV Insertion, Place 20g cathlon. If patient has a port, access with appropriate needle. Notify Provider Nursing Communication Order, Initiate Anesthesia Pre/Post Orders (for MAC to General Anesthesia) Nursing Communication Order, If Anesthesia involved Initiate Anesthesia Pre- Admission 1 orders Nursing Communication Order, If Anesthesia involved Initiate Anesthesia Pre- Admission 2 orders Nursing Communication Order, If on Coumadin (Warfarin) in last 5 days, obtain STAT Protime. Order aurine test on all women between the ages of 10-55 unless the patient has had a hysterectomy, sterilization or has completed menopause/ceased menses for one calendar year. ?? Will proceed with EGD??to evaluate??for gastric??outlet obstruction. ?? Could be erosive/ulcerative??upper GI??disease/H pylori infection. Differential includes??gastroparesis Risk of procedure including sedation related complication, bleeding perforation??were discussed with patient, and he agreed to proceed.? 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 ?C2-7 & C7-T1 ACDF (10/28/2022)? ?C2-T1 PCDF (10/27/2022)? ?Evac of Cervical Hematoma (10/26/2022)???C3-5 Corpectomies (10/25/2022)???back surgery (2020)???cardiac stent x3 (2020)???carpal tunnel release (2012)???inguinal hernia repair (2012)???lumbar discectomy (2012) Medications Home Medications () Active acetaminophen-hydrocodone 325 mg-5 mg oral tablet??2 tab, PRN, By mouth, TID Advair Diskus 100 mcg-50 mcg inhalation powder??1 puff, Inhalation, BID Albuterol (Eqv-Proventil HFA) 90 mcg/inh inh aerosol??2 puff, Inhalation, Q6H Ambien 10 mg oral tablet??10 mg = 1 tab, PRN, By mouth, at bedtime amLODIPine 2.5 mg oral tablet??2.5 mg = 1 tab, By mouth, Daily Ativan 0.5 mg oral tablet??0.5 mg = 1 tab, PRN, By mouth, Q6H atorvastatin 20 mg oral tablet??20 mg = 1 tab, By mouth, Daily benzonatate??100 mg, PRN, By mouth, TID calcium acetate 667 mg oral tablet??1,334 mg = 2 tab, By mouth, TID carvedilol 25 mg oral tablet??25 mg = 1 tab, By mouth, BID cefadroxil 500 mg oral capsule??500 mg = 1 cap, By mouth, MWF (once daily Mon, Wed, Fri) clobetasol topical 0.05% cream??1 application, Topical, BID docusate sodium 250 mg oral capsule??250 mg = 1 cap, PRN, By mouth, Daily doxepin 10 mg oral capsule??10 mg = 1 cap, By mouth, at bedtime Dulcolax Stool Softener 100 mg oral capsule??100 mg = 1 cap, PRN, By mouth, Q24H Epclusa 400 mg-100 mg oral tablet??1 tab, By mouth, Daily Flonase 50 mcg/inh nasal spray??50 mcg = 1 spray, Both Nostrils, BID hydrALAZINE 50 mg oral tablet??75 mg = 1.5 tab, By mouth, TID methocarbamol 750 mg oral tablet??1,500 mg = 2 tab, By mouth, TID metoclopramide??10 mg, PRN, By mouth, BID mirtazapine 15 mg oral tablet??15 mg = 1 tab, By mouth, at bedtime nitroglycerin 0.3 mg sublingual tablet??0.3 mg = 1 tab, PRN, SL, Q5Min Protonix 40 mg oral delayed release tablet??40 mg = 1 tab, By mouth, BID RenaPlex??1 tab, By mouth, Daily Allergies Latex??(rash) Social History Social History Alcohol ??Current, Type: Liquor. ??Occasional Use;??Comment(s):??Pt states he very rarely consumes any alcohol. Substance Abuse ??Denies Tobacco ??Smoking Status: Former smoker. ??Smokeless tobacco use: Never. ?Type: Cigarettes. ??Tobacco use per day: 4 or less cigarettes(less than 1/4 pack)/day in last 30 days.;??Comment(s):??stopped 1 year ago Family History Family history is unknown Lab Results Labs??(Last two charted values on this encounter) WBC 5.1 ??(JAN 05) ?? Hgb 9.2 ??(JAN 05) ?? Hct 29.7 ??(JAN 05) ?? Platelets 170 ??(JAN 05) ?? Diagnostic Results No clinical data available for specified time frame. Electronically signed by:Brittany Melton MD 01/06/24 08:15 Patient Care team information Care Team Personnel Name: Cassandra Adames Position: Inpatient-Midlevel Member Role: Nurse Practitioner Address: Address: [facility] Name: Kian Colon MD Position: 2 Restricted Providers Member Role: Primary Care Physician Name: Claire Lindsey LPN Position: [facility] [employer] Clinical Member Role: [employer] Name: Ayesha Su Position: Inpatient-Midlevel Member Role: Nurse Practitioner Address: Address: [facility] Care Team Related Persons Name: ROMAINE GEE Name: ROMAINE GEE
--- OUTSIDE RECORDS SUMMARY | 2024-02-20 14:36 | XMS_ITS ---
Author Name Jade Reyna Address [address] [place] [address] Phone [phone] [facility] DOCUMENT DISCLAIMER Multiple document versions may exist, please be sure you review the latest version. The information in the [facility] Progress Note Document represents a providers documented clinical note containing certain health and medical information. It may not contain the complete medical history for the patient and should be independently verified. The represented time in the document is Eastern Time PROVIDER ROUNDING NOTE COMPREHENSIVE Patient:?Fredy?Cassius,?1955,?68y,?M Dialysis?Location:?[place] Attending?Water Valve Mechanic:?Rosario Service?Date:?02/08/2024 Service?Provider:?Jade?Axel,?SUPERINTENDENT RECREATION I?met?face?to?face?with?the?patient?today. OVERVIEW The?patient?presented?with?ESRD?on?dialysis Primary?cause?of?renal?failure:?Hypertensive?chronic?kidney? disease?with?stage?1?through?stage?4?chronic?kidney?dis ease,?or?unspecified?chronic?kidney?disease Comments:?VSS,?seen?on?HD?machine,?denies?needs?for?me today.? he?reports?he?has?an?appointment?with?[facility]?04/2024?for transplant?evaluation. Medications?and?labs?reviewed. LAST?HOSPITALIZATION Discharge?Diagnosis:?R78.81?Bacteremia M46.20?Osteomyelitis?of?vertebra,?site?unspecified E87.5?Hyperkalemia I10?Essential?(primary)?hypertension M54.50?Low?back?pain,?unspecified N50.819?Testicular?pain,?unspecified R70.0?Elevated?erythrocyte?sedimentation?rate D63.1?Anemia?in?chronic?kidney?disease B95.62?Methicillin?resistant?Staphylococcus?aureus?infection?as?t he?cause?of?diseases?classified?elsewhere Admission?Date?06/17/23 Discharge?Date?07/13/23 TRANSPLANT Comments:?Working?with?[facility] DIALYSIS?PRESCRIPTION ??IHD?3x?Week?Start?date:?01/27/24 ??Dialyzer:?180NRe?Optiflux ??BFR:?450 ??DFR:?Autoflow?1.5 ??Potassium:?2.0 ??Sodium:?137 ??EDW:?67.4 ??Duration:?3:30 ??Calcium:?2.5 ??Bicarb:?35 ??Rx?updated?on:?01/27/2024 TREATMENT?ASSESSMENT Comments:?Stable. BP?Stand?Pre ??02/06/2024:?144/93 BP?Sit?Pre ??02/06/2024:?155/98 ??02/03/2024:?151/129 ??02/01/2024:?155/104 BP?Stand?Post ??02/03/2024:?141/101 BP?Sit?Post ??02/06/2024:?135/92 ??02/03/2024:?135/89 ??02/01/2024:?150/84 Tx?Duration ??02/06/2024:?3:30 ??02/03/2024:?3:32 ??02/01/2024:?4:00 Missed?Treatments 0?-?last?30?days 0?-?last?60?days FLUID?ASSESSMENT Comments:?Stable. EDW?(kg) ??02/06/2024:?67.4 ??02/03/2024:?67.4 ??02/01/2024:?67.4 Weight?Pre?(kg) ??02/06/2024:?68.3 ??02/03/2024:?68.4 ??02/01/2024:?69.1 Weight?Post?(kg) ??02/06/2024:?66.8 ??02/03/2024:?67.0 ??02/01/2024:?67.5 PWV?(kg) ??02/06/2024:?-0.6 ??02/03/2024:?-0.4 ??02/01/2024:?0.1 UF?Rate?(mL/kg/hr) ??02/06/2024:?6.4 ??02/03/2024:?5.9 ??02/01/2024:?5.9 ADEQUACY?ASSESSMENT Comments:?Stable? spKt/V,?URR ??01/04/2024:?1.69,?78.0 ??12/07/2023:?1.63,?77.0 ??12/02/2023:?1.52,?74.0 ACCESS?ASSESSMENT ??Access?Type:?AVGraft ??Access?SubType:?Biological?-?Bovine ??Access?Status:?Active?(In?Use)?-?01/23/2022 ??Access?Location:?Left?Forearm ??Created:?12/04/2021 Flow ??01/20/2024:?1750 ??12/19/2023:?1603 ??11/21/2023:?1323 ANEMIA?ASSESSMENT Comments:?On?IV?iron?and?MISAEL?protocol. Recent?restart?of?mircera:?Hgb?now?in?goal HGB ??02/01/2024:?10.4 ??01/25/2024:?9.7 ??01/18/2024:?8.7 ?? Ferritin ??12/14/2023:?809.0 ??12/07/2023:?2004.0 ??09/07/2023:?1537.0 Mircera,?IVP?(mcg) ??02/06/2024:?50 ??01/16/2024:?100 ??12/16/2023:?50 Iron?Sucrose?(Venofer)?(mg) ??02/03/2024:?50 ??01/27/2024:?50 ??01/20/2024:?50 BMM?ASSESSMENT Comments:?Added?calcitriol. PTH?next?month No?new?labs?to?review PTH,?Intact ??12/07/2023:?743.0 ??09/07/2023:?120.0 ?? Calcium,?Phosphorus ??01/04/2024:?8.4,?3.3 ??12/07/2023:?8.3,?4.1 ??11/09/2023:?8.6,?4.0 Vitamin?D?(Calcitriol)?Oral?(mcg) ??02/06/2024:?0.5 ??02/03/2024:?0.5 ??02/01/2024:?0.5 NUTRITION?ASSESSMENT Comments:?No?new?labs?to?review Potassium,?Albumin ??01/04/2024:?3.6,?3.6 ??12/07/2023:?3.7,?3.8 ??11/09/2023:?3.8,?3.7 ?? eNPCR ??01/04/2024:?0.54 ??12/02/2023:?0.6 ??11/09/2023:?0.5 PHYSICAL?EXAM Exam?Not?Performed. DIAGNOSIS Chief?Complaint:?N18.6?End?stage?renal?disease Patient?data?updated?02/08/2024?at?5:58?PM Signed?By:?Axel,?Jade,?SUPERINTENDENT RECREATION??on?02/08/2024?5:59:16 PM END OF DOCUMENT
--- OUTSIDE RECORDS SUMMARY | 2024-02-20 14:37 | XMS_ITS ---
Author Name Jade Reyna Address [address] [place] [address] Phone [phone] Organization [facility], NA DOCUMENT DISCLAIMER Multiple document versions may exist, please be sure you review the latest version. The information in the [facility] Progress Note Document represents a providers documented clinical note containing certain health and medical information. It may not contain the complete medical history for the patient and should be independently verified. The represented time in the document is Eastern Time PROVIDER ROUNDING NOTE BASIC Patient:?Fredy?Cassius,?1955,?68y,?M Dialysis?Location:?[place] Attending?Manager Rn:?Rosario Service?Date:?01/02/2024 Service?Provider:?Jade?Axel,?WORKS MANAGER I?met?face?to?face?with?the?patient?today. OVERVIEW The?patient?presented?with?ESRD?on?dialysis Primary?cause?of?renal?failure:?Hypertensive?chronic?kidney? disease?with?stage?1?through?stage?4?chronic?kidney?dis ease,?or?unspecified?chronic?kidney?disease Comments:?VSS,?seen?on?HD?machine,?denies?needs?for?me today.? Medications?and?labs?reviewed. LAST?HOSPITALIZATION Discharge?Diagnosis:?R78.81?Bacteremia M46.20?Osteomyelitis?of?vertebra,?site?unspecified E87.5?Hyperkalemia I10?Essential?(primary)?hypertension M54.50?Low?back?pain,?unspecified N50.819?Testicular?pain,?unspecified R70.0?Elevated?erythrocyte?sedimentation?rate D63.1?Anemia?in?chronic?kidney?disease B95.62?Methicillin?resistant?Staphylococcus?aureus?infection?as?t he?cause?of?diseases?classified?elsewhere Admission?Date?06/17/23 Discharge?Date?07/13/23 DIALYSIS?PRESCRIPTION ??IHD?3x?Week?Start?date:?12/30/23 ??Dialyzer:?180NRe?Optiflux ??BFR:?450 ??DFR:?Autoflow?1.5 ??Potassium:?2.0 ??Sodium:?137 ??EDW:?67.7 ??Duration:?3:30 ??Calcium:?2.5 ??Bicarb:?35 ??Rx?updated?on:?12/30/2023 TREATMENT?ASSESSMENT Comments:?Stable. BP?Stand?Pre ??12/28/2023:?157/106 ??12/26/2023:?163/93 BP?Sit?Pre ??12/30/2023:?139/109 ??12/28/2023:?171/96 ??12/26/2023:?159/93 BP?Stand?Post ??12/28/2023:?123/68 ??12/26/2023:?164/105 BP?Sit?Post ??12/30/2023:?159/100 ??12/28/2023:?139/84 ??12/26/2023:?166/96 Tx?Duration ??12/30/2023:?3:39 ??12/28/2023:?3:33 ??12/26/2023:?3:26 Missed?Treatments 1?-?last?30?days 1?-?last?60?days 9/6?-?recent FLUID?ASSESSMENT Comments:?Stable. EDW?(kg) ??12/30/2023:?68.2 ??12/28/2023:?69.0 ??12/26/2023:?68.0 Weight?Pre?(kg) ??12/30/2023:?68.2 ??12/28/2023:?69.4 ??12/26/2023:?69.4 Weight?Post?(kg) ??12/30/2023:?67.7 ??12/28/2023:?68.2 ??12/26/2023:?69.3 PWV?(kg) ??12/30/2023:?-0.5 ??12/28/2023:?-0.8 ??12/26/2023:?1.3 UF?Rate?(mL/kg/hr) ??12/30/2023:?2 ??12/28/2023:?5 ??12/26/2023:?0.4 ADEQUACY?ASSESSMENT Comments:?No?new?labs?to?review spKt/V,?URR ??12/07/2023:?1.63,?77.0 ??12/02/2023:?1.52,?74.0 ??11/09/2023:?1.35,?71.0 ACCESS?ASSESSMENT ??Access?Type:?AVGraft ??Access?SubType:?Biological?-?Bovine ??Access?Status:?Active?(In?Use)?-?01/23/2022 ??Access?Location:?Left?Forearm ??Created:?12/04/2021 Flow ??12/19/2023:?1603 ??11/21/2023:?1323 ??10/19/2023:?1591 ANEMIA?ASSESSMENT Comments:?On?IV?iron?and?MISAEL?protocol. HGB ??12/28/2023:?9.0 ??12/21/2023:?9.0 ??12/14/2023:?9.3 ?? Ferritin ??12/14/2023:?809.0 ??12/07/2023:?2004.0 ??09/07/2023:?1537.0 Mircera,?IVP?(mcg) ??12/16/2023:?50 Iron?Sucrose?(Venofer)?(mg) ??12/30/2023:?100 ??12/28/2023:?100 ??12/26/2023:?100 BMM?ASSESSMENT Comments:?Added?calcitriol. No?new?labs?to?review PTH,?Intact ??12/07/2023:?743.0 ??09/07/2023:?120.0 ??07/27/2023:?76.0 ?? Calcium,?Phosphorus ??12/07/2023:?8.3,?4.1 ??11/09/2023:?8.6,?4.0 ??10/05/2023:?8.6,?2.1 Vitamin?D?(Calcitriol)?Oral?(mcg) ??12/30/2023:?0.5 ??12/28/2023:?0.5 ??12/26/2023:?0.5 NUTRITION?ASSESSMENT Comments:?No?new?labs?to?review Potassium,?Albumin ??12/07/2023:?3.7,?3.8 ??11/09/2023:?3.8,?3.7 ??10/05/2023:?4.5,?3.5 ?? eNPCR ??12/02/2023:?0.6 ??11/09/2023:?0.5 ??10/05/2023:?0.55 PHYSICAL?EXAM Exam?Not?Performed. DIAGNOSIS Chief?Complaint:?N18.6?End?stage?renal?disease Patient?data?updated?01/02/2024?at?3:18?PM Signed?By:?Axel,?Jade,?WORKS MANAGER??on?01/02/2024?3:19:16 PM END OF DOCUMENT
--- OUTSIDE RECORDS SUMMARY | 2024-02-20 14:37 | XMS_ITS ---
Author Name Susan Rosales Address [address] [place] [address] Phone [phone] Organization [facility], NA DOCUMENT DISCLAIMER Multiple document versions may exist, please be sure you review the latest version. The information in the [facility] Progress Note Document represents a providers documented clinical note containing certain health and medical information. It may not contain the complete medical history for the patient and should be independently verified. The represented time in the document is Eastern Time PROVIDER ROUNDING NOTE COMPREHENSIVE Patient:?Fredy?Cassius,?1955,?68y,?M Dialysis?Location:?[place] Attending?Boiler Blower:?Rosario Service?Date:?01/25/2024 Service?Provider:?Susan?Bobby,? I?met?face?to?face?with?the?patient?today. OVERVIEW The?patient?presented?with?ESRD?on?dialysis Primary?cause?of?renal?failure:?Hypertensive?chronic?kidney? disease?with?stage?1?through?stage?4?chronic?kidney?dis ease,?or?unspecified?chronic?kidney?disease Comments:?VSS,?seen?on?HD?machine,?denies?needs?for?me today.? he?reports?he?has?an?appointment?with?[facility]?04/20[facility]?for transplant?evaluation. Medications?and?labs?reviewed. LAST?HOSPITALIZATION Discharge?Diagnosis:?R78.81?Bacteremia M46.20?Osteomyelitis?of?vertebra,?site?unspecified E87.5?Hyperkalemia I10?Essential?(primary)?hypertension M54.50?Low?back?pain,?unspecified N50.819?Testicular?pain,?unspecified R70.0?Elevated?erythrocyte?sedimentation?rate D63.1?Anemia?in?chronic?kidney?disease B95.62?Methicillin?resistant?Staphylococcus?aureus?infection?as?t he?cause?of?diseases?classified?elsewhere Admission?Date?06/17/23 Discharge?Date?07/13/23 DIALYSIS?PRESCRIPTION ??IHD?3x?Week?Start?date:?01/06/24 ??Dialyzer:?180NRe?Optiflux ??BFR:?450 ??DFR:?Autoflow?1.5 ??Potassium:?2.0 ??Sodium:?137 ??EDW:?67.7 ??Duration:?3:30 ??Calcium:?2.5 ??Bicarb:?35 ??Rx?updated?on:?01/05/2024 TREATMENT?ASSESSMENT Comments:?Stable. BP?Stand?Pre ??01/20/2024:?152/118 BP?Sit?Pre ??01/23/2024:?157/108 ??01/20/2024:?179/132 ??01/18/2024:?124/96 BP?Stand?Post ??01/23/2024:?154/94 ??01/20/2024:?164/113 ??01/18/2024:?144/90 BP?Sit?Post ??01/23/2024:?154/113 ??01/20/2024:?155/99 ??01/18/2024:?161/95 Tx?Duration ??01/23/2024:?3:33 ??01/20/2024:?3:32 ??01/18/2024:?2:12 Missed?Treatments 1?-?last?30?days 2?-?last?60?days 10/4?-?recent FLUID?ASSESSMENT Comments:?Stable. EDW?(kg) ??01/23/2024:?67.7 ??01/20/2024:?67.7 ??01/18/2024:?67.7 Weight?Pre?(kg) ??01/23/2024:?69.8 ??01/20/2024:?70.4 ??01/18/2024:?69.6 Weight?Post?(kg) ??01/23/2024:?67.8 ??01/20/2024:?67.7 ??01/18/2024:?68.2 PWV?(kg) ??01/23/2024:?0.1 ??01/20/2024:?0.0 ??01/18/2024:?0.5 UF?Rate?(mL/kg/hr) ??01/23/2024:?8.3 ??01/20/2024:?11.3 ??01/18/2024:?9.3 ADEQUACY?ASSESSMENT Comments:?Stable? spKt/V,?URR ??01/04/2024:?1.69,?78.0 ??12/07/2023:?1.63,?77.0 ??12/02/2023:?1.52,?74.0 ACCESS?ASSESSMENT ??Access?Type:?AVGraft ??Access?SubType:?Biological?-?Bovine ??Access?Status:?Active?(In?Use)?-?01/23/2022 ??Access?Location:?Left?Forearm ??Created:?12/04/2021 Flow ??01/20/2024:?1750 ??12/19/2023:?1603 ??11/21/2023:?1323 Vascular?access?reviewed.?Current?access?is?permanent?and?functioning?well. ANEMIA?ASSESSMENT Comments:?On?IV?iron?and?MISAEL?protocol. Recent?restart?of?mircera HGB,?TSAT ??01/18/2024:?8.7,?- ??01/11/2024:?8.7,?- ??01/04/2024:?8.8,?13.0 ?? Ferritin ??12/14/2023:?809.0 ??12/07/2023:?2004.0 ??09/07/2023:?1537.0 Mircera,?IVP?(mcg) ??01/16/2024:?100 ??12/16/2023:?50 Iron?Sucrose?(Venofer)?(mg) ??01/20/2024:?50 ??01/13/2024:?50 ??01/02/2024:?100 BMM?ASSESSMENT Comments:?Added?calcitriol. PTH?next?month PTH,?Intact ??12/07/2023:?743.0 ??09/07/2023:?120.0 ??07/27/2023:?76.0 ?? Calcium,?Phosphorus ??01/04/2024:?8.4,?3.3 ??12/07/2023:?8.3,?4.1 ??11/09/2023:?8.6,?4.0 Vitamin?D?(Calcitriol)?Oral?(mcg) ??01/23/2024:?0.5 ??01/20/2024:?0.5 ??01/18/2024:?0.5 NUTRITION?ASSESSMENT Potassium,?Albumin ??01/04/2024:?3.6,?3.6 ??12/07/2023:?3.7,?3.8 ??11/09/2023:?3.8,?3.7 ?? eNPCR ??01/04/2024:?0.54 ??12/02/2023:?0.6 ??11/09/2023:?0.5 PHYSICAL?EXAM Exam?Performed.?Vital?Signs?Reviewed.?CV?-?Blood?pressure&#1 60;noted.?EXT?-?No?edema.?EXT?-?No?ulcers. DIAGNOSIS Chief?Complaint:?N18.6?End?stage?renal?disease Patient?is?stable. Patient?data?updated?01/25/2024?at?2:21?PM Signed?By:?Bobby,?Susan???on?01/25/2024?2:22:18?PM END OF DOCUMENT
--- OUTSIDE RECORDS SUMMARY | 2024-02-20 14:37 | XMS_ITS ---
Author Name Susan Rosales Address [address] [place] [address] Phone [phone] Organization [facility], NA DOCUMENT DISCLAIMER Multiple document versions may exist, please be sure you review the latest version. The information in the [facility] Progress Note Document represents a providers documented clinical note containing certain health and medical information. It may not contain the complete medical history for the patient and should be independently verified. The represented time in the document is Eastern Time PROVIDER ROUNDING NOTE COMPREHENSIVE Patient:?Fredy?Cassius,?1955,?68y,?M Dialysis?Location:?[place] Attending?Tape Duplicator:?Rosario Service?Date:?12/26/2023 Service?Provider:?Susan?Bobby,? I?met?face?to?face?with?the?patient?today. OVERVIEW The?patient?presented?with?ESRD?on?dialysis Primary?cause?of?renal?failure:?Hypertensive?chronic?kidney? disease?with?stage?1?through?stage?4?chronic?kidney?dis ease,?or?unspecified?chronic?kidney?disease Comments:?VSS,?seen?on?HD?machine,?denies?needs?for?me today.? he?reports?having?abdominal?pain.?He?is?to?have?a? CT?scan ?in?[place].?Reports?it?may?be?his gallbladder. Medications?and?labs?reviewed. LAST?HOSPITALIZATION Discharge?Diagnosis:?R78.81?Bacteremia M46.20?Osteomyelitis?of?vertebra,?site?unspecified E87.5?Hyperkalemia I10?Essential?(primary)?hypertension M54.50?Low?back?pain,?unspecified N50.819?Testicular?pain,?unspecified R70.0?Elevated?erythrocyte?sedimentation?rate D63.1?Anemia?in?chronic?kidney?disease B95.62?Methicillin?resistant?Staphylococcus?aureus?infection?as?t he?cause?of?diseases?classified?elsewhere Admission?Date?06/17/23 Discharge?Date?07/13/23 DIALYSIS?PRESCRIPTION ??IHD?3x?Week?Start?date:?12/23/23 ??Dialyzer:?180NRe?Optiflux ??BFR:?450 ??DFR:?Autoflow?1.5 ??Potassium:?2.0 ??Sodium:?137 ??EDW:?68 ??Duration:?3:30 ??Calcium:?2.5 ??Bicarb:?35 ??Rx?updated?on:?12/23/2023 TREATMENT?ASSESSMENT Comments:?Stable. Blood?pressure?controlled.?No?changes?indicated.? BP?Stand?Pre ??12/23/2023:?115/80 ??12/19/2023:?162/111 BP?Sit?Pre ??12/23/2023:?111/78 ??12/21/2023:?113/76 ??12/19/2023:?153/85 BP?Stand?Post ??12/23/2023:?122/87 ??12/19/2023:?145/86 BP?Sit?Post ??12/23/2023:?128/74 ??12/21/2023:?139/87 ??12/19/2023:?139/90 Tx?Duration ??12/23/2023:?3:27 ??12/21/2023:?3:29 ??12/19/2023:?3:34 Missed?Treatments 1?-?last?30?days 1?-?last?60?days 9/6?-?recent FLUID?ASSESSMENT Comments:?Stable. EDW?(kg) ??12/23/2023:?67.7 ??12/21/2023:?67.7 ??12/19/2023:?67.9 Weight?Pre?(kg) ??12/23/2023:?70.2 ??12/21/2023:?68.2 ??12/19/2023:?67.9 Weight?Post?(kg) ??12/23/2023:?68.4 ??12/21/2023:?67.7 ??12/19/2023:?67.0 PWV?(kg) ??12/23/2023:?0.7 ??12/21/2023:?0.0 ??12/19/2023:?-0.9 UF?Rate?(mL/kg/hr) ??12/23/2023:?7.6 ??12/21/2023:?2.1 ??12/19/2023:?3.8 ADEQUACY?ASSESSMENT Adequacy?target?met.?Prescription?compliance?acceptable.? spKt/V,?URR ??12/07/2023:?1.63,?77.0 ??12/02/2023:?1.52,?74.0 ??11/09/2023:?1.35,?71.0 ACCESS?ASSESSMENT ??Access?Type:?AVGraft ??Access?SubType:?Biological?-?Bovine ??Access?Status:?Active?(In?Use)?-?01/23/2022 ??Access?Location:?Left?Forearm ??Created:?12/04/2021 Flow ??12/19/2023:?1603 ??11/21/2023:?1323 ??10/19/2023:?1591 Vascular?access?reviewed.?Current?access?is?permanent?and?functioning?well. ANEMIA?ASSESSMENT Comments:?On?IV?iron?and?MISAEL?protocol. HGB,?TSAT ??12/21/2023:?9.0,?- ??12/14/2023:?9.3,?- ??12/07/2023:?10.0,?24.0 ?? Ferritin ??12/14/2023:?809.0 ??12/07/2023:?2004.0 ??09/07/2023:?1537.0 Mircera,?IVP?(mcg) ??12/16/2023:?50 Iron?Sucrose?(Venofer)?(mg) ??12/23/2023:?100 ??10/05/2023:?50 ??09/28/2023:?50 BMM?ASSESSMENT Comments:?Added?calcitriol. Labs?next?week. PTH,?Intact ??12/07/2023:?743.0 ??09/07/2023:?120.0 ??07/27/2023:?76.0 ?? Calcium,?Phosphorus ??12/07/2023:?8.3,?4.1 ??11/09/2023:?8.6,?4.0 ??10/05/2023:?8.6,?2.1 Vitamin?D?(Calcitriol)?Oral?(mcg) ??12/23/2023:?0.5 ??12/21/2023:?0.5 ??12/19/2023:?0.5 NUTRITION?ASSESSMENT Potassium?controlled.?Albumin?controlled.?No?changes?indicated.? Potassium,?Albumin ??12/07/2023:?3.7,?3.8 ??11/09/2023:?3.8,?3.7 ??10/05/2023:?4.5,?3.5 ?? eNPCR ??12/02/2023:?0.6 ??11/09/2023:?0.5 ??10/05/2023:?0.55 PHYSICAL?EXAM Exam?Performed.?Vital?Signs?Reviewed.?CV?-?Blood?pressure&#1 60;noted.?EXT?-?No?edema.?EXT?-?No?ulcers.?AVF/AVG Positive?thrill/bruit. DIAGNOSIS Chief?Complaint:?N18.6?End?stage?renal?disease Patient?is?stable. 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 HTN?is?controlled. He?follows?with?cardiology.?N25.81?Secondary?hyperparathyroidism?of?renal?origin ??Comments:?Added?calcitriol. Labs?next?week. Patient?data?updated?12/26/2023?at?2:36?PM Signed?By:?Bobby,?Susan???on?12/26/2023?2:39:30?PM END OF DOCUMENT
--- OUTSIDE RECORDS SUMMARY | 2024-02-20 14:37 | XMS_ITS | Continuity of Care Document ---
Author Name Unknown Organization [facility] Address [id number] [address] Phone Care Team Providers Care Toeing Stockings Name Role Phone Ben Nolen DDS, [facility] Unavailable Unavail able Allergies, Adverse Reactions, Alerts Substance Reaction Status Criticality aspirin Active No Information Medications Medication Instructions Dosage Effective Dates (start - stop) Status Comments hydrocodone 5 mg-acetaminophen 325 mg tablet take 1 tablet by oral route every 6 hours as needed for pain for post op pain 1.00 tablet - Active Procedures Procedure Date 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 Problem Focu sed Intraoral ??? Periapical First Film Extraction, Erupted Tooth Or Exposed Claudia t (Elevati EDR Approval Note Limited oral eval, x-ray & 1st extractio n Slide 2 Advance Directives Directive Yes / No Effective Date File Name No Information Encounters Encounter Description Practice Location Reason(s) For Visit Diagnoses Date Provider Providers Copied on Encounter [facility], [id number], [id number], [place] tel:[phone] [facility] No Information Dec- 3 [address] Nolen [facility]. [address], [place], [id number], [place]. tel:[phone] Referring Provider: Aviva Nolen, [address], [place], [address] . tel:[phone] [facility], [id number] [facility] [place], [place], [id number], tel:[phone] [facility] Encounter for dental exam and cleaning w/o abnormal findings 7 7 No Information Family History Family Member Type Diagnosis Age At Onset No Information Payers Payer name Insurance type Covered constitution party ID Authormisbah valle(s) D Medicaid [id number] Social History Type Description Quantity Date Captured Comments Sex Male Smoking Status No Information Gender Identity Male Chief Complaint And Reason For Visit No Information Reason For Referral Reason For Referral No Information Plan Of Treatment Date Type Action Status Goal Tobacco cessation counseling completed History Of Present Illness Encounter Date Complaint History Of Prese nt Illness No Information Functional Status Date Functional Assessmen t No Information Instructions Date Instruction Additional Infor ariellaion Lifestyle education Related to D ental Examination Assessments Type Assessment Date No Information Patient Care Teams Name Effective Dates (start - stop) Status Members No Information
[2024-03-12] VITALS (24 sets, daily range): BP systolic 92–128; BP diastolic 68–86; PULSE 62–93; RESP 13–21; TEMP 36.2–37; O2SAT 91–100; BMI 22.4
--- NOTE | 2024-03-12 | XR_ITS ---
WS: [id number] Exam: XR lumbar spine 2-3V* [id number] Date/Time of Exam: 03/12/2024 12:00 AM Reason For Exam: SERGO PICS AP and lateral intraoperative images of the lumbar spine are submitted. Images were obtained for intr aoperative visualization purposes.
--- NOTE | 2024-03-12 09:37 | P.ANESASSM_ITS ---
Pre-Anesthetic Assessment Height/Weight: Height 5 ft 10 in Weight 156 lb Temp Pulse Resp BP Pulse Ox O2 Del Method 98.1 F 93 18 111/78 95 Room Air 03/12/24 09:21 03/12/24 09:21 03/12/24 09:21 03/12/24 09:21 03/12/24 09:21 03/12/24 09:21 Preop Diagnosis: Lumbar stenosis with neurogenic claudication Operation Date: 03/12/24 10:35 Proposed Procedures p Spinal Fusion PSF(Not Applicable) - James Jj DO s Posterior Lumbar Interbody Fusion PLIF(Not Applicable) - James Jj DO s Lumbopelvic Fixation(Not Applicable) - James Jj DO s Sacroiliac Joint Fusion SI Joint Fusion(Bilateral) - James Jj DO Was Beta Aggie taken within 24 hours: Yes Was Clonidine taken within 24 hours: N/A Last intake: Intake Last Liquid Date 03/11/24 Last Liquid Time 22:30 Last Solid Date 03/11/24 Last Solid Time 22:30 Social No alcohol and No tobacco Exam alert, oriented x 3 and clear to auscultation bilaterally A-fib Airway Submandibular: within normal limits Cervical ROM: within normal limits Mallampati: Class III Dentition: other (Edentulous) Anesthetic Plan ASA status: 3 Anesthesia: General Other: No prior issues with anesthesia in the past NPO since yesterday History of CAD s/p PCI COPD controlled with inhalers ESRD on hemodialysis, last dialysis was Tuesday Labs reviewed today and acceptable for procedure LIGIA GERD on Protonix Most recent EKG showing atrial fibrillation Echo 2022 showing EF 65% with mildly elevated filling pressures Patient ambulates with a walker Plan for GETA Medications/Allergies Home Medications Medication Instructions Recorded Confirmed Last Taken Type Cane #1 ea 10/03/20 03/07/24 03/11/24 Rx Nebulizer & supplies #1 ea 02/05/22 03/07/24 03/11/24 Rx spacer for Albuterol inhaler #1 ea 02/05/22 03/07/24 03/11/24 Rx home oxygen 2L/min #1 ea 02/04/23 03/07/24 03/11/24 Rx metoclopramide HCl 10 mg tablet 10 mg PO BID PRN Nausea #180 tabs 03/23/23 03/08/24 Unknown Rx (Reglan) vit B,C-folic ac 800 mcg-zinc 12.5 1 tab PO DAILY #90 tabs 03/23/23 03/08/24 03/11/24 Rx mg-selen-D3 2,000 unit-vit E tablet (RenaPlex-D) Walker #1 ea 06/15/23 03/07/24 03/11/24 Rx Wheel Chair, medium #1 ea 07/27/23 03/07/24 03/11/24 Rx albuterol sulfate 2.5 mg/3 mL 2.5 mg (3 mL) inhalation QID PRN 10/20/23 03/08/24 03/11/24 Rx (0.083 %) solution for nebulization Shortness Of Breath #180 mL albuterol sulfate 90 mcg/actuation 2 puff inhalation Q6H PRN 10/20/23 03/08/24 Unknown Rx aerosol inhaler Shortness Of Breath #8.5 grams amlodipine 2.5 mg tablet 2.5 mg PO DAILY blood pressure #90 10/20/23 03/08/24 03/11/24 Rx tabs aspirin 81 mg tablet,delayed 81 mg PO DAILY #90 tabs 10/20/23 03/08/24 03/11/24 Rx release atorvastatin 20 mg tablet 20 mg PO DAILY cholesterol #90 tabs 10/20/23 03/08/24 03/11/24 Rx calcium acetate(phosphat bind) 667 1,334 mg (2 x 667 mg) PO TID #540 10/20/23 03/08/24 03/11/24 Rx mg capsule caps carvedilol 25 mg tablet 25 mg PO BID 30 days #180 tabs 10/20/23 03/08/24 03/11/24 Rx docusate sodium 250 mg capsule 250 mg PO DAILY PRN Constipation 10/20/23 03/08/24 03/11/24 Rx #90 caps mirtazapine 15 mg tablet (Remeron) 15 mg PO .qhs insomnia/anxiety #90 10/20/23 03/08/24 03/11/24 Rx tabs nitroglycerin 0.4 mg sublingual 0.4 mg sublingual Q5M PRN Chest 10/20/23 03/08/24 Unknown Rx tablet (Nitrostat) Pain 30 days #30 tabs tramadol 50 mg tablet 50 mg PO DAILY PRN pain, severe 10/20/23 03/08/24 03/11/24 Rx #30 tabs zolpidem 10 mg tablet (Ambien) 10 mg PO .q hs PRN sleep #30 tabs 10/20/23 03/08/24 03/11/24 Rx inhalational spacing device #1 ea 11/30/23 03/07/24 03/11/24 Rx (Aerochamber Plus Flow-Vu) CPAP 6-16cm setting #1 ea 12/06/23 03/07/24 03/11/24 Rx pantoprazole 40 mg tablet,delayed 40 mg PO BID #60 tabs 12/06/23 03/08/24 03/11/24 Rx release (Protonix) sucralfate 1 gram tablet (Carafate) 1 g PO BID #60 tabs 12/06/23 03/08/24 03/11/24 Rx CPAP mask, tubing, supplies #1 ea 12/07/23 03/07/24 03/11/24 Rx clonazepam 0.5 mg tablet 0.25 mg (1/2 x 0.5 mg) PO BID 01/05/24 03/08/24 03/11/24 Rx anxiety #60 tabs fluticasone 250 mcg-salmeterol 50 1 inh inhalation BID #60 ea 01/05/24 03/08/24 03/11/24 Rx mcg/dose blistr powdr for inhalation (Advair Diskus) hydralazine 50 mg tablet 75 mg (1.5 x 50 mg) PO TID #405 01/05/24 03/08/24 03/11/24 Rx tabs ipratropium 20 mcg-albuterol 100 1 puff inhalation Q4H PRN wheezing 01/05/24 03/08/24 03/11/24 Rx mcg/actuation mist for inhalation 30 days #4 grams (Combivent Respimat) cefadroxil 500 mg capsule 500 mg PO .MWF 03/08/24 03/08/24 03/11/24 History Allergies Allergy/AdvReac Type Severity Reaction Status Date / Time latex Allergy rash Verified 03/07/24 08:24 [facility] Anesthesia Medical History Chronic neck pain with history of cervical spinal surgery Hepatitis C antibody test positive Supplemental oxygen dependent CAD in [place] artery NSTEMI 10/2021 Constipation due to slow transit Lung nodule, solitary Former smoker Quit 2020 ESRD (end stage renal disease) on dialysis NSTEMI (non-ST elevated myocardial infarction) Hypertension, essential Obstructive sleep apnea CHF exacerbation Combined D/S CHF COPD exacerbation Erectile dysfunction Anemia in chronic kidney disease (CKD) Elevated PSA BPH NOS w ur obs/LUTS Moderate pulmonary arterial systolic hypertension Mild aortic stenosis 12/07/2018: Mean gradient 4.6 mmHg, aortic valve area 2.2 cm? 10/02/21: No aortic stenosis Hyperlipidemia History of pulmonary embolism Surgical History Hx of shoulder surgery left Postoperative state H/O abdominal surgery hernia History of ankle surgery History of back surgery Family History Family/Other Cancer Mother Dementia Diabetes Sister Diabetes CAD (coronary artery disease) Father , AT AGE 78 Brain aneurysm Denies family history of Clotting disorder Hyperlipidemia Psychiatric illness Chronic kidney disease (CKD) Suicide Anesthesia complication Bleeding disorder Family history of premature coronary artery disease Lung disease Hypertension Stroke Social History Smoking and tobacco/nicotine status: unknown if used tobacco/nicotine Quit status (tobacco/nicotine): has quit using Year quit tobacco: 2020 Former quit date comment: 0.5 ppd X 15 years Alcohol intake: former Substance/Drug Use: never Marital status: Current occupational status: disabled Data Anesthesia 03/12/24 09:35 03/12/24 09:35 Cardiac Studies: 2 Echocardiogram 04/16/22 Echocardiogram Limited Views 10/10/21 Echocardiogram Ultrasound 06/18/20 Sestamibi Stress Test (Cardiology) 06/19
[2024-03-12] MEDS: sodium chloride 0.9% 1,000 ML 30 ML IV (09:40)
[2024-03-12 09:51] LABS: Basophils % 0.7 %; Eosinophils # 0.2 10^3/uL (0.0-0.8); Eosinophils % 3.4 %; Hematocrit 33.2 % (37-53); Lymphocytes # 1.4 10^3/uL (0.8-4.8); Mean Corpuscular HGB Conc 32.8 g/dL (30-55); Mean Corpuscular Hemoglobin 31.7 pg (27-33); Mean Corpuscular Volume 96.5 fl (82-101); Mean Platelet Volume 10.7 fL (7.4-10.4); Monocytes # 0.6 10^3/uL (0.2-0.9); Monocytes % 9.3 %; Neutrophils # 3.95 10^3/uL (1.8-7.7); Neutrophils % 64.3 %; Nucleated Red Blood Cells % 0 %; Platelet Count 155 10^3/cmm (157-399); Red Blood Count 3.44 10^6/uL (3.85-5.65); Red Cell Distribution Width 17.2 % (12.1-15.1); White Blood Count 6.14 10^3/uL (3.29-11.43)
--- NOTE | 2024-03-12 10:03 | W.PM.OPSUD ---
Surgery/Procedure H&P Update DATE OF PROCEDURE: March 12, 2024 DATE H&P PERFORMED: 03/07/24 H&P UPDATE INFORMATION: I have reviewed H&P completed within last 30 days, I have examined patient prior to procedure and No changes to prior documentation PREOP DIAGNOSIS: Lumbar stenosis with neurogenic claudication PLANNED PROCEDURE: Operation Date: 03/12/24 10:35 Proposed Procedures p Spinal Fusion PSF(Not Applicable) - James Jj DO s Posterior Lumbar Interbody Fusion PLIF(Not Applicable) - DO candi Thorne Lumbopelvic Fixation(Not Applicable) - DO candi Thorne Sacroiliac Joint Fusion SI Joint Fusion(Bilateral) - James Jj DO
[2024-03-12 10:10] LABS: Alanine Aminotransferase 14 U/L (0-41); Alkaline Phosphatase 124 U/L (40-130); Anion Gap 20.2 (5-19); Aspartate Amino Transferase 24 U/L (0-40); Blood Urea Nitrogen 47 mg/dL (8-23); Calcium 9.3 mg/dL (8.5-10.5); Carbon Dioxide 23 mmol/L (22-29); Chloride 100 mmol/L (98-107); Creatinine Clr Calc Pharmacy 9.8773; Globulin 3.1 g/dL (1.3-4.6); Glomerular Filtration Rate 9.1 mL/min (90-130); Glucose 127 mg/dL (65-115); Osmolality Calculated 302 mOsm/kg (285-295); Potassium 4.2 mmol/L (3.5-5.1); Sodium 139 mmol/L (136-145); Total Bilirubin 0.5 mg/dL (0.15-1.2); Total Protein 7.1 g/dL (6.6-8.7)
[2024-03-12] MEDS: ceFAZolin 2,000 mg SDV 2000 MG IVP ×2 (10:58→22:26)
[2024-03-12] MEDS: lidocaine-epi 1% 20 mL INJ INJECTION (12:06)
[2024-03-12] MEDS: VANCOMYCIN ADD-Vantage 1,000 MG VIAL 1000 MG XX (12:17)
[2024-03-12] MEDS: heparin, porcine 1,000 unit/mL INJ 10 mL 10000 UNIT IRRIGATION (12:18)
--- NOTE | 2024-03-12 14:16 | PM.OP ---
Operative Report Date of procedure: March 12, 2024 Pre-op diagnosis: Lumbar stenosis with neurogenic claudication Post-op diagnosis: same Surgeon: James Jj, Procedure: 1. L2 to pelvis fusion 2. L2-L5 posterior spine instrumentation 3. Lumbopelvic instrumentation 4. Open SI joint fusion on the right 5. Open SI joint fusion on the left 6. Use of computer navigation stereotactic for spine 7. Bone marrow aspirate from right iliac crest 8. L2/3 laminectomy with partial facetectomies 9. Use of allograft 10. Removal of deep hardware from spine 11. Revision spine surgery Patient brought to the operative suite after undergoing anesthesia was placed in the prone position. All areas impingement well-padded. Patient is prepped and draped in normal sterile fashion. Skin incisions made using the previous skin incision extending slightly above and below. The thoracolumbar fascia was split and subperiosteal dissection was made out to the transverse process of L2. The screws were identified at L3-L5 bilaterally. The screw caps were removed from L3 and L5 and L4 bilaterally. The L3 screws were removed. The rods were removed. Transverse processes of the L3 and L4 and 5 were identified and dissected out as well. Sacrum and SI joints were dissected out as well. The screw caps and rods were then removed. Next attension was was brought to the bone marrow aspirate. This was done by using the [email or web address] cell bone marrow aspiration kit. The iliac crest was identified and through a separate incision through the fascia and the bone marrow aspiration kit was inserted into the right iliac crest. Bone marrow aspirate was taken 20 cc. This was mixed with the allograft. Next attention was brought to placing the fiducial for the C-arm. This is going to be used for the computer navigation. 2 pins were placed into the right iliac crest which were later moved to the end of the case. The fiducial was attached. C-arm was brought in and then spun around the patient. The information from serum was then later used after is loaded the computer for the placement of pedicle screws. Next attention was brought to placing the pedicle screws. This was done at L2 bilaterally. The computer navigated awl was inserted into the pedicle. Followed by the pedicle feeler. Then 2 50 mm screws were placed into the L2 pedicles using the computer navigation. Next attention was placing the iliac screws. This was done using the computer navigated awl. This is placed through the ala across the SI joint into the iliac crest. Then followed by the pedicle feeler. Followed by computer navigated tap. 80 mm 9.5mm pedicle screws were then placed into the iliac crest. This was done bilaterally. Next attention was brought to the open SI joint fusions. This was done by using the computer navigated awl crossing the SI joint. Through direct visualization as well. The pedicle feeler was used to make sure was crossed no breaches. The canal was then filled with bone graft. And then a computer navigated SI joint fusion screws placed across the SI joint. This process was done on both the right and the left side. It was brought to performing the L2/3 laminectomy with partial facetectomies. This was done by using a rongeur to take down the spinous process of L2 the lamina was taken down with a high-speed bur. Medial aspect of facet joints were taken down. The ligamentum flavum was taken down to the remaining bone that was at L3. The remaining bone of L3 was peeled off the dura and removed. The dura was again good repair. Ligamentum flavum was taken off from L2 down to L3. Wounds were then irrigated. The sally was then attached from L2 into the [place] of L3, L4, L5 and into the iliac screw completing the lumbopelvic fixation. The screw caps were then torqued into position. This was done bilaterally. Next attention was brought to decorticating the transverse processes of L2 bilaterally, L3 bilaterally, L4 bilaterally, L5 bilaterally and sacral ala. Next attention was brought to decorticating the transverse processes of L2 bilaterally, L3 bilaterally, L4 bilaterally, L5 bilaterally the sacral ala and over the SI joint. Osteol amp bone graft was then packed into the gutters. And across the SI joint. Vancomycin powder was placed deep drain was placed and wound was closed in layered fashion with Vicryl and Monocryl. Sterile dressings were applied patient was transferred to the PACU in stable condition.
--- NOTE | 2024-03-12 14:21 | PM.CONSULT ---
Providers/Reason For Consult Consulting Physician/Specialty*: Hospitalist Reason for Consult*: Postop management Attending Physician: James Jj DO Primary Care Provider: Kian Colon MD History of Present Illness History of Present Illness Fredy Hammonds is a 68 year old male with end-stage renal disease, hepatitis C, hypertension, ex-smoker, COPD hospitalist service was requested for postop management by Dr. Jj because of history of end-stage renal disease, hypertension. Patient is not endorsing any active complaints, stating that pain is well-controlled at this point, patient is getting dialyzed at the time of my evaluation, he gets dialysis Tuesday, Dr. Gambino was notified, patient is stating that he lives alone, he goes to the dialysis center through Medicare ride. Postop posterior spine instrumentation L2-L3 laminectomy removal of deep hardware from spine L2 to pelvis fusion Review of Systems Const: Denies: fever(s) Eyes: Denies: change in vision ENMT: Denies: throat pain Card: Denies: chest pain Medications/Allergies Home Medications Medication Instructions Recorded Confirmed Last Taken Type Cane #1 ea 10/03/20 03/07/24 03/11/24 Rx Nebulizer & supplies #1 ea 02/05/22 03/07/24 03/11/24 Rx spacer for Albuterol inhaler #1 ea 02/05/22 03/07/24 03/11/24 Rx home oxygen 2L/min #1 ea 02/04/23 03/07/24 03/11/24 Rx metoclopramide HCl 10 mg tablet 10 mg PO BID PRN Nausea #180 tabs 03/23/23 03/08/24 Unknown Rx (Reglan) vit B,C-folic ac 800 mcg-zinc 12.5 1 tab PO DAILY #90 tabs 03/23/23 03/08/24 03/11/24 Rx mg-selen-D3 2,000 unit-vit E tablet (RenaPlex-D) Kevin #1 ea 06/15/23 03/07/24 03/11/24 Rx Wheel Chair, medium #1 ea 07/27/23 03/07/24 03/11/24 Rx albuterol sulfate 2.5 mg/3 mL 2.5 mg (3 mL) inhalation QID PRN 10/20/23 03/08/24 03/11/24 Rx (0.083 %) solution for nebulization Shortness Of Breath #180 mL albuterol sulfate 90 mcg/actuation 2 puff inhalation Q6H PRN 10/20/23 03/08/24 Unknown Rx aerosol inhaler Shortness Of Breath #8.5 grams amlodipine 2.5 mg tablet 2.5 mg PO DAILY blood pressure #90 10/20/23 03/08/24 03/11/24 Rx tabs aspirin 81 mg tablet,delayed 81 mg PO DAILY #90 tabs 10/20/23 03/08/24 03/11/24 Rx release atorvastatin 20 mg tablet 20 mg PO DAILY cholesterol #90 tabs 10/20/23 03/08/24 03/11/24 Rx calcium acetate(phosphat bind) 667 1,334 mg (2 x 667 mg) PO TID #540 10/20/23 03/08/24 03/11/24 Rx mg capsule caps carvedilol 25 mg tablet 25 mg PO BID 30 days #180 tabs 10/20/23 03/08/24 03/11/24 Rx docusate sodium 250 mg capsule 250 mg PO DAILY PRN Constipation 10/20/23 03/08/24 03/11/24 Rx #90 caps mirtazapine 15 mg tablet (Remeron) 15 mg PO .qhs insomnia/anxiety #90 10/20/23 03/08/24 03/11/24 Rx tabs nitroglycerin 0.4 mg sublingual 0.4 mg sublingual Q5M PRN Chest 10/20/23 03/08/24 Unknown Rx tablet (Nitrostat) Pain 30 days #30 tabs tramadol 50 mg tablet 50 mg PO DAILY PRN pain, severe 10/20/23 03/08/24 03/11/24 Rx #30 tabs zolpidem 10 mg tablet (Ambien) 10 mg PO .q hs PRN sleep #30 tabs 10/20/23 03/08/24 03/11/24 Rx inhalational spacing device #1 ea 11/30/23 03/07/24 03/11/24 Rx (Aerochamber Plus Flow-Vu) CPAP 6-16cm setting #1 ea 12/06/23 03/07/24 03/11/24 Rx pantoprazole 40 mg tablet,delayed 40 mg PO BID #60 tabs 12/06/23 03/08/24 03/11/24 Rx release (Protonix) sucralfate 1 gram tablet (Carafate) 1 g PO BID #60 tabs 12/06/23 03/08/24 03/11/24 Rx CPAP mask, tubing, supplies #1 ea 12/07/23 03/07/24 03/11/24 Rx clonazepam 0.5 mg tablet 0.25 mg (1/2 x 0.5 mg) PO BID 01/05/24 03/08/24 03/11/24 Rx anxiety #60 tabs fluticasone 250 mcg-salmeterol 50 1 inh inhalation BID #60 ea 01/05/24 03/08/24 03/11/24 Rx mcg/dose blistr powdr for inhalation (Advair Diskus) hydralazine 50 mg tablet 75 mg (1.5 x 50 mg) PO TID #405 01/05/24 03/08/24 03/11/24 Rx tabs ipratropium 20 mcg-albuterol 100 1 puff inhalation Q4H PRN wheezing 01/05/24 03/08/24 03/11/24 Rx mcg/actuation mist for inhalation 30 days #4 grams (Combivent Respimat) cefadroxil 500 mg capsule 500 mg PO .MWF 03/08/24 03/08/24 03/11/24 History Allergies Allergy/AdvReac Type Severity Reaction Status Date / Time latex Allergy rash Verified 03/07/24 08:24 Current Medications Generic Name Dose Route Start Last Admin Trade Name Freq PRN Reason Stop Dose Admin Sodium Chloride 1,000 mls @ 30 mls/hr 03/12/24 09:15 03/12/24 09:40 Sodium Chloride 0.9% IV 03/13/24 09:14 30 mls/hr .Q24H VENUS Administration PFSH Acute PFSH: Medical History Chronic neck pain with history of cervical spinal surgery Hepatitis C antibody test positive Supplemental oxygen dependent CAD in [place] artery NSTEMI 10/2021 Constipation due to slow transit Lung nodule, solitary Former smoker Quit 2020 ESRD (end stage renal disease) on dialysis NSTEMI (non-ST elevated myocardial infarction) Hypertension, essential Obstructive sleep apnea CHF exacerbation Combined D/S CHF COPD exacerbation Erectile dysfunction Anemia in chronic kidney disease (CKD) Elevated PSA BPH NOS w ur obs/LUTS Moderate pulmonary arterial systolic hypertension Mild aortic stenosis 12/07/2018: Mean gradient 4.6 mmHg, aortic valve area 2.2 cm? 10/02/21: No aortic stenosis Hyperlipidemia History of pulmonary embolism Surgical History Hx of shoulder surgery left Postoperative state H/O abdominal surgery hernia History of ankle surgery History of back surgery Family History Family/Other Cancer Mother Dementia Diabetes Sister Diabetes CAD (coronary artery disease) Father , AT AGE 78 Brain aneurysm Denies family history of Clotting disorder Hyperlipidemia Psychiatric illness Chronic kidney disease (CKD) Suicide Anesthesia complication Bleeding disorder Family history of premature coronary artery disease Lung disease Hypertension Stroke Social History Smoking and tobacco/nicotine status: unknown if used tobacco/nicotine Quit status (tobacco/nicotine): has quit using Year quit tobacco: 2020 Former quit date comment: 0.5 ppd X 15 years Alcohol intake: former Substance/Drug Use: never Marital status: Current occupational status: disabled Vitals/I&O/Wt Last Vital Signs Temp 98.1 F 03/12/24 09:21 Pulse 93 03/12/24 09:21 Resp 18 03/12/24 09:21 BP 111/78 03/12/24 09:21 Pulse Ox 95 03/12/24 09:21 O2 Del Method Room Air 03/12/24 09:21 Weight last 48 hrs Weight 70.76 kg Physical Exam Narrative: Patient is getting dialysis Left arm AV fistula Patient now complaining active pain, awake and alert Currently on 3 L GCS 15 Nonfocal neuroexam Looks dehydrated Urinary Catheter Management: Latex Free: Cath Placed During This Visit: yes Urinary Catheter Date of Insertion: 03/12/24 Urinary Catheter Time of Insertion: 11:15 Data 03/12/24 09:35 03/12/24 09:35 A&P Assessment and plan (1) CAD in [place] artery: (2) Hypertension, essential: (3) Anxiety: (4) Constipation due to slow transit: (5) ESRD (end stage renal disease) on dialysis: (6) Anemia in chronic kidney disease (CKD): (7) Lumbar stenosis with neurogenic claudication: (8) Supplemental oxygen dependent: (9) Insomnia: Qualifiers: Insomnia type: due to medical condition Qualified Code(s): G47.01 - Insomnia due to medical condition (10) Obstructive sleep apnea: Plan Lumbar pelvic spine fusion Postop day 0 End-stage renal disease : Getting dialysis today exsmoker, history of hepatitis C Endorsing use of oxygen up to 2 L at home, currently at 3 L History of CHF no acute decompensation Patient is stating that he lives alone he is planning to get a walker get physical therapy done and then go home tomorrow, he is not interesting nursing on placement Dr. Gambino consulted Full code Renal diet His blood pressure was low during dialysis, received albumin, blood pressure stable at the time of evaluation Consult Attestations Medical Necessity Statement: Anticipating discharge by tomorrow Diagnoses CAD in [place] artery I25.10 Hypertension, essential I10 Anxiety F41.9 Constipation due to slow transit K59.01 ESRD (end stage renal disease) on dialysis N18.6; Z99.2 Anemia in chronic kidney disease (CKD) N18.9; D63.1 Lumbar stenosis with neurogenic claudication M48.062 Supplemental oxygen dependent Z99.81 Insomnia due to medical condition G47.01 Insomnia type: due to medical condition Obstructive sleep apnea G47.33
--- NOTE | 2024-03-12 16:16 | P.CONIM_ITS ---
Providers/Reason For Consult 2 Consulting Physician/Specialty*: dann gomez md / telenephrology Reason for Consult*: ESRD care Requesting Physician: DR Jj and Dr Stuart Attending Physician: James Jj DO Primary Care Provider: Kian Colon MD History of Present Illness History of Present Illness Fredy Hammonds is a 68 year old male status post L2 to pelvis fusion. Patient has history of ESRD on dialysis for 2+ years. Hepatitis C coronary artery disease ex-tobacco user hypertension obstructive sleep apnea heart failure combined systolic and diastolic dysfunction. COPD anemia prostate issues. The patient had surgery today and renal was called to provide dialysis care. Review of Systems 2 Narrative: The patient was seen in the PACU is still lethargic. He has no shortness of breath or chest pain or nausea or vomiting. Medications/Allergies Home Medications Medication Instructions Recorded Confirmed Last Taken Type Cane #1 ea 10/03/20 03/07/24 03/11/24 Rx Nebulizer & supplies #1 ea 02/05/22 03/07/24 03/11/24 Rx spacer for Albuterol inhaler #1 ea 02/05/22 03/07/24 03/11/24 Rx home oxygen 2L/min #1 ea 02/04/23 03/07/24 03/11/24 Rx metoclopramide HCl 10 mg tablet 10 mg PO BID PRN Nausea #180 tabs 03/23/23 03/08/24 Unknown Rx (Reglan) vit B,C-folic ac 800 mcg-zinc 12.5 1 tab PO DAILY #90 tabs 03/23/23 03/08/24 03/11/24 Rx mg-selen-D3 2,000 unit-vit E tablet (RenaPlex-D) Walker #1 ea 06/15/23 03/07/24 03/11/24 Rx Wheel Chair, medium #1 ea 07/27/23 03/07/24 03/11/24 Rx albuterol sulfate 2.5 mg/3 mL 2.5 mg (3 mL) inhalation QID PRN 10/20/23 03/08/24 03/11/24 Rx (0.083 %) solution for nebulization Shortness Of Breath #180 mL albuterol sulfate 90 mcg/actuation 2 puff inhalation Q6H PRN 10/20/23 03/08/24 Unknown Rx aerosol inhaler Shortness Of Breath #8.5 grams amlodipine 2.5 mg tablet 2.5 mg PO DAILY blood pressure #90 10/20/23 03/08/24 03/11/24 Rx tabs aspirin 81 mg tablet,delayed 81 mg PO DAILY #90 tabs 10/20/23 03/08/24 03/11/24 Rx release atorvastatin 20 mg tablet 20 mg PO DAILY cholesterol #90 tabs 10/20/23 03/08/24 03/11/24 Rx calcium acetate(phosphat bind) 667 1,334 mg (2 x 667 mg) PO TID #540 10/20/23 03/08/24 03/11/24 Rx mg capsule caps carvedilol 25 mg tablet 25 mg PO BID 30 days #180 tabs 10/20/23 03/08/24 03/11/24 Rx docusate sodium 250 mg capsule 250 mg PO DAILY PRN Constipation 10/20/23 03/08/24 03/11/24 Rx #90 caps mirtazapine 15 mg tablet (Remeron) 15 mg PO .qhs insomnia/anxiety #90 10/20/23 03/08/24 03/11/24 Rx tabs nitroglycerin 0.4 mg sublingual 0.4 mg sublingual Q5M PRN Chest 10/20/23 03/08/24 Unknown Rx tablet (Nitrostat) Pain 30 days #30 tabs tramadol 50 mg tablet 50 mg PO DAILY PRN pain, severe 10/20/23 03/08/24 03/11/24 Rx #30 tabs zolpidem 10 mg tablet (Ambien) 10 mg PO .q hs PRN sleep #30 tabs 10/20/23 03/08/24 03/11/24 Rx inhalational spacing device #1 ea 11/30/23 03/07/24 03/11/24 Rx (Aerochamber Plus Flow-Vu) CPAP 6-16cm setting #1 ea 12/06/23 03/07/24 03/11/24 Rx pantoprazole 40 mg tablet,delayed 40 mg PO BID #60 tabs 12/06/23 03/08/24 03/11/24 Rx release (Protonix) sucralfate 1 gram tablet (Carafate) 1 g PO BID #60 tabs 12/06/23 03/08/24 03/11/24 Rx CPAP mask, tubing, supplies #1 ea 12/07/23 03/07/24 03/11/24 Rx clonazepam 0.5 mg tablet 0.25 mg (1/2 x 0.5 mg) PO BID 01/05/24 03/08/24 03/11/24 Rx anxiety #60 tabs fluticasone 250 mcg-salmeterol 50 1 inh inhalation BID #60 ea 01/05/24 03/08/24 03/11/24 Rx mcg/dose blistr powdr for inhalation (Advair Diskus) hydralazine 50 mg tablet 75 mg (1.5 x 50 mg) PO TID #405 01/05/24 03/08/24 03/11/24 Rx tabs ipratropium 20 mcg-albuterol 100 1 puff inhalation Q4H PRN wheezing 01/05/24 03/08/24 03/11/24 Rx mcg/actuation mist for inhalation 30 days #4 grams (Combivent Respimat) cefadroxil 500 mg capsule 500 mg PO .MWF 03/08/24 03/08/24 03/11/24 History Allergies Allergy/AdvReac Type Severity Reaction Status Date / Time latex Allergy rash Verified 03/07/24 08:24 Current Medications Generic Name Dose Route Start Last Admin Trade Name Freq PRN Reason Stop Dose Admin Sodium Chloride 1,000 mls @ 30 mls/hr 03/12/24 09:15 03/12/24 09:40 Sodium Chloride 0.9% IV 03/13/24 09:14 30 mls/hr .Q24H VENUS Administration PFSH Acute 2 PFSH: Medical History Chronic neck pain with history of cervical spinal surgery Hepatitis C antibody test positive Supplemental oxygen dependent CAD in [place] artery NSTEMI 10/2021 Constipation due to slow transit Lung nodule, solitary Former smoker Quit 2020 ESRD (end stage renal disease) on dialysis NSTEMI (non-ST elevated myocardial infarction) Hypertension, essential Obstructive sleep apnea CHF exacerbation Combined D/S CHF COPD exacerbation Erectile dysfunction Anemia in chronic kidney disease (CKD) Elevated PSA BPH NOS w ur obs/LUTS Moderate pulmonary arterial systolic hypertension Mild aortic stenosis 12/07/2018: Mean gradient 4.6 mmHg, aortic valve area 2.2 cm? 10/02/21: No aortic stenosis Hyperlipidemia History of pulmonary embolism Surgical History Hx of shoulder surgery left Postoperative state H/O abdominal surgery hernia History of ankle surgery History of back surgery Family History Family/Other Cancer Mother Dementia Diabetes Sister Diabetes CAD (coronary artery disease) Father , AT AGE 78 Brain aneurysm Denies family history of Clotting disorder Hyperlipidemia Psychiatric illness Chronic kidney disease (CKD) Suicide Anesthesia complication Bleeding disorder Family history of premature coronary artery disease Lung disease Hypertension Stroke Social History Smoking and tobacco/nicotine status: unknown if used tobacco/nicotine Quit status (tobacco/nicotine): has quit using Year quit tobacco: 2020 Former quit date comment: 0.5 ppd X 15 years Alcohol intake: former Substance/Drug Use: never Marital status: Current occupational status: disabled Vitals/I&O/Wt Last Vital Signs Temp 97.2 F L 03/12/24 14:44 Pulse 73 03/12/24 16:00 Resp 14 03/12/24 16:00 BP 107/79 03/12/24 16:00 Pulse Ox 92 03/12/24 16:00 O2 Del Method Nasal Cannula 03/12/24 16:00 O2 Flow Rate 5 03/12/24 16:00 03/12/24 03/12/24 03/12/24 06:59 14:59 22:59 Intake Total 0 / 0 Output Total 525 / 525 Balance -525 / -525 Weight last 48 hrs Weight 70.76 kg Physical Exam 2 Narrative: The patient was seen using audiovisual equipment with the aid of a nurse. The patient is comfortable no apparent distress vital signs noted. HEENT normocephalic atraumatic. Neck is supple. Lungs basal dullness. Heart regular positive S1-S2. Abdomen is soft positive bowel sounds. Positive bandages. Extremities no significant edema. Left upper extremity AV fistula with thrill and bruit. Urinary Catheter Management: Latex Free: Cath Placed During This Visit: yes Urinary Catheter Date of Insertion: 03/12/24 Urinary Catheter Time of Insertion: 11:15 Data 03/12/24 09:35 03/12/24 09:35 A&P Assessment and plan (1) ESRD (end stage renal disease) on dialysis: 60 chilled gentleman ESRD, combined systolic and diastolic dysfunction, obstructive sleep apnea, atrial fibrillation, hypertension. Patient is status post L2 to pelvis fusion. Patient currently in the PACU. 1. ESRD patient will get dialysis today or tomorrow based on when he gets to room and availability of nurses. Patient is oxygenating okay, blood pressure on low side, potassium is normal no significant acidosis. 2. 2. Will monitor hemoglobin. 3. Monitor blood pressure. Case discussed with orthopedic surgery and with Dr. Stuart of medicine The patient was seen and examined using A/V equipment. The patient consented to telehealth and to dialysis as needed. Plan Postop care as per orthopedics. Consult Attestations 2 Medical Necessity Statement: Status post orthopedic surgery ESRD, CHF. Coding Level of Care Code Acute Code for [facility] Fwd Diagnoses ESRD (end stage renal disease) on dialysis N18.6; Z99.2
--- NOTE | 2024-03-12 16:59 | SUR.PHASEI ---
1600 DC ART line in right wrist, per protocol, applying pressure for more five minutes, covered with 2x2s and coban. 1615 Report given to Ruthann hot cell technician nurse on [facility] and pt was taken directly to dialysis with Becca dialysis nurse. Pt's daughter, Jeannette, and other family members were with pt upon my departure.
[2024-03-12] MEDS: HYDROcodone-acetaminophen 5-325 mg Tablet PO (18:00)
[2024-03-12] MEDS: pantoprazole DR 40 mg Tablet PO (18:01)
[2024-03-12] MEDS: sucralfate 1 gm Tablet PO (18:01)
[2024-03-12] MEDS: ketorolac 30 mg/mL INJ IVP (18:01)
[2024-03-12] MEDS: docusate sodium 100 mg Capsule PO (18:01)
--- NOTE | 2024-03-12 21:40 | PC.NURSE ---
Per dialysis note, 1L fluid removed during dialysis.
[2024-03-12] MEDS: heparin 5,000 unit/mL INJ 1 mL 5000 UNIT SUBCUT (22:27)
[2024-03-12] MEDS: mirtazapine 15 mg Tablet PO (22:28)
[2024-03-12] MEDS: hyDRALAzine 25 mg Tablet PO (22:28)
[2024-03-13] VITALS (12 sets, daily range): BP systolic 104–147; BP diastolic 72–100; PULSE 78–95; RESP 15–20; TEMP 36.4–37; O2SAT 90–100
[2024-03-13] MEDS: morphine 4 mg/mL SDV 1 mL 2 MG IVP ×2 (03:56→17:16)
[2024-03-13] MEDS: ceFAZolin 2,000 mg SDV 2000 MG IVP ×2 (04:47→11:02)
[2024-03-13 06:38] LABS: Basophils % 0.3 %; Eosinophils % 0.2 %; Hematocrit 29.7 % (37-53); Lymphocytes # 0.9 10^3/uL (0.8-4.8); Lymphocytes % 9.8 %; Mean Corpuscular HGB Conc 32.3 g/dL (30-55); Mean Corpuscular Hemoglobin 32.2 pg (27-33); Mean Corpuscular Volume 99.7 fl (82-101); Mean Platelet Volume 12.2 fL (7.4-10.4); Monocytes # 0.6 10^3/uL (0.2-0.9); Monocytes % 7.3 %; Neutrophils # 7.18 10^3/uL (1.8-7.7); Neutrophils % 81.8 %; Nucleated Red Blood Cells % 0.5 %; Platelet Count 136 10^3/cmm (157-399); Red Blood Count 2.98 10^6/uL (3.85-5.65); Red Cell Distribution Width 17.2 % (12.1-15.1); White Blood Count 8.78 10^3/uL (3.29-11.43)
[2024-03-13 07:03] LABS: Blood Urea Nitrogen 29 mg/dL (8-23); Calcium 8.7 mg/dL (8.5-10.5); Carbon Dioxide 27 mmol/L (22-29); Chloride 101 mmol/L (98-107); Creatinine Clr Calc Pharmacy 12.2691; Glomerular Filtration Rate 11.8 mL/min (90-130); Glucose 186 mg/dL (65-115); Osmolality Calculated 305 mOsm/kg (285-295); Sodium 142 mmol/L (136-145)
[2024-03-13 07:27] LABS: Anion Gap 17.7 (5-19); Potassium 3.7 mmol/L (3.5-5.1)
--- NOTE | 2024-03-13 07:38 | P.PN_ITS ---
Subjective 2 Subjective: Patient resting in bed has not been out of bed yet. At this point patient had dialysis yesterday. Vitals/I&O/Wt Last Vital Signs Temp 98.1 F 03/13/24 04:00 Pulse 85 03/13/24 04:00 Resp 17 03/13/24 04:00 BP 132/77 03/13/24 04:00 Pulse Ox 99 03/13/24 04:00 O2 Del Method Room Air 03/13/24 04:00 O2 Flow Rate 3 03/12/24 16:25 03/12/24 03/13/24 03/13/24 22:59 06:59 14:59 Intake Total 1126 / 1126 Output Total 1950 / 2475 200 / 2675 Balance -824 / -1349 -200 / -1549 Weight last 48 hrs Weight 150 lb 12.8 oz Weight 150 lb 5.684 oz Weight 156 lb Weight 156 lb Physical Exam 2 Narrative: Resting bed comfortably. Will evaluate him this afternoon after he is been up with physical therapy. Urinary Catheter Management: Latex Free: Cath Placed During This Visit: yes, but has since been removed by the nurse Reason for Continuing Indwelling Catheter: Decision to DC Catheter Urinary Catheter Date of Insertion: 03/12/24 Urinary Catheter Time of Insertion: 11:15 Date Urinary Catheter Removed: 03/13/24 Time Urinary Catheter Discontinued: 06:16 Data 03/12/24 09:35 03/13/24 05:40 A&P Assessment and plan (1) Status post lumbar spinal fusion: Patient is postop day #1 lumbar fusion. Up with physical therapy Attestations 2 Medical Necessity Statement*: Pain control Coding Level of Care Code Acute Code for [facility] Fwd Diagnoses Status post lumbar spinal fusion Z98.1
--- NOTE | 2024-03-13 07:44 | P.PN_ITS ---
Subjective 2 Subjective: The patient was seen and examined. He is postop day #1. Patient had dialysis yesterday. Patient complains of heartburn and blood pressure has become an issue. Medications: Reviewed: Yes Medication Review Details: Current Medications Acetaminophen (Acetaminophen 325 Mg Tablet) 650 mg PO Q4H PRN PRN Reason: Mild Pain or fever >101.5 Hydrocodone Bitart/Acetaminophen (Hydrocodone-Acetaminophen 5-325 Mg Tablet) 1 - 2 tab PO Q4H PRN PRN Reason: MODERATE TO SEVERE PAIN Last Admin: 03/12/24 18:00 Dose: 2 tab Albuterol Sulfate (Albuterol 2.5 Mg/3 Ml Neb) 2.5 mg INHALATION QID PRN PRN Reason: Shortness Of Breath Albuterol Sulfate (Albuterol 8 Gm Mdi) 2 puff INHALATION Q6H PRN PRN Reason: Shortness Of Breath Albuterol Sulfate (Albuterol 2.5 Mg/3 Ml Neb) 2.5 mg INHALATION QID.RESPIRATORY [facility] Last Admin: 03/12/24 21:55 Dose: Not Given Albuterol/Ipratropium (Ipratropium-Albuterol 3 Ml Neb) 3 ml INHALATION Q4H PRN PRN Reason: SHORTNESS OF BREATH Atorvastatin Calcium (Atorvastatin 40 Mg Tablet) 20 mg PO DAILY VENUS Budesonide (Budesonide 0.5 Mg/2 Ml Neb) 0.5 mg INHALATION BID.RESPIRATORY VENUS Last Admin: 03/12/24 21:55 Dose: Not Given Calcium Acetate (Calcium Acetate 667 Mg Capsule) 1,334 mg PO TIDWM [facility] Last Admin: 03/12/24 18:11 Dose: Not Given Carvedilol (Carvedilol 25 Mg Tablet) 25 mg PO BID [facility] Last Admin: 03/12/24 18:11 Dose: Not Given Cefazolin Sodium (Cefazolin 2,000 Mg Sdv) 2,000 mg IVP Q8H [facility]; Protocol Stop: 03/13/24 11:01 Last Admin: 03/13/24 04:47 Dose: 2,000 mg Clonazepam (Clonazepam 0.5 Mg Tablet) 0.25 mg PO BID [facility] Last Admin: 03/12/24 18:11 Dose: Not Given Docusate Sodium (Docusate Sodium 100 Mg Capsule) 100 mg PO BID [facility] Last Admin: 03/12/24 18:01 Dose: 100 mg Heparin Sodium (Porcine) (Heparin 5,000 Unit/Ml Inj 1 Ml) 5,000 unit SUBCUT Q12H [facility] Last Admin: 03/12/24 22:27 Dose: 5,000 unit Hydralazine HCl (Hydralazine 25 Mg Tablet) 25 mg PO TID [facility] Last Admin: 03/12/24 22:28 Dose: 25 mg Albumin Human (Albumin) 12.5 gm in 50 mls @ 60 mls/hr IV PRN PRN PRN Reason: Hypotension and/or symptomatic Ketorolac Tromethamine (Ketorolac 30 Mg/Ml Inj) 30 mg IVP Q6H PRN PRN Reason: BREAKTHROUGH PAIN Last Admin: 03/12/24 18:01 Dose: 30 mg Magnesium Hydroxide (Magnesium Hydroxide 30 Ml Udc) 30 ml PO Q4H PRN PRN Reason: Constipation/indigestion Metoclopramide HCl (Metoclopramide 10 Mg Tablet) 10 mg PO BID PRN PRN Reason: Nausea Mirtazapine (Mirtazapine 15 Mg Tablet) 15 mg PO BEDTIME [facility] Last Admin: 03/12/24 22:28 Dose: 15 mg Morphine Sulfate (Morphine 4 Mg/Ml Sdv 1 Ml) 2 mg IVP Q1H PRN PRN Reason: SEVERE PAIN Last Admin: 03/13/24 03:56 Dose: 2 mg Nitroglycerin (Nitroglycerin 0.4 Mg Sublingual Tablet) 0.4 mg SUBLINGUAL Q5M PRN PRN Reason: Chest Pain Non-Formulary Medication (Vit B,E-Fd-Oqod-Selen-Vit D3-E [Renaplex-D]) 1 tab PO DAILY [facility] Non-Formulary Medication (Cefadroxil) 500 mg PO MoWeFr [facility] Non-Formulary Medication (Docusate Sodium) 250 mg PO DAILY PRN PRN Reason: Constipation Ondansetron HCl (Ondansetron 2 Mg/Ml Sdv 2 Ml) 4 mg IVP Q6H PRN PRN Reason: NAUSEA AND VOMITING Pantoprazole Sodium (Pantoprazole Dr 40 Mg Tablet) 40 mg PO BID [facility] Last Admin: 03/12/24 18:01 Dose: 40 mg Sucralfate (Sucralfate 1 Gm Tablet) 1 gm PO BID [facility] Last Admin: 03/12/24 18:01 Dose: 1 gm Zolpidem Tartrate (Zolpidem 5 Mg Tablet) 10 mg PO BEDTIME PRN PRN Reason: sleep Vitals/I&O/Wt Last Vital Signs Temp 98.1 F 03/13/24 04:00 Pulse 85 03/13/24 04:00 Resp 17 03/13/24 04:00 BP 132/77 03/13/24 04:00 Pulse Ox 99 03/13/24 04:00 O2 Del Method Room Air 03/13/24 04:00 O2 Flow Rate 3 03/12/24 16:25 03/12/24 03/13/24 03/13/24 22:59 06:59 14:59 Intake Total 1126 / 1126 Output Total 1950 / 2475 200 / 2675 Balance -824 / -1349 -200 / -1549 Weight last 48 hrs Weight 68.402 kg Weight 68.2 kg Weight 70.76 kg Weight 70.76 kg Physical Exam 2 Narrative: The patient was seen using audiovisual equipment with the aid of a nurse. The patient is comfortable no apparent distress vital signs noted. HEENT normocephalic atraumatic. Neck is supple. Lungs clear to auscultation bilaterally Heart regular positive S1-S2. Abdomen is soft positive bowel sounds. Positive bandages. Extremities no significant edema. Left upper extremity AV fistula with thrill and bruit. Neuro awake alert oriented x 3 moves extremities. Urinary Catheter Management: Latex Free: Cath Placed During This Visit: yes, but has since been removed by the nurse Reason for Continuing Indwelling Catheter: Decision to DC Catheter Urinary Catheter Date of Insertion: 03/12/24 Urinary Catheter Time of Insertion: 11:15 Date Urinary Catheter Removed: 03/13/24 Time Urinary Catheter Discontinued: 06:16 Data 03/12/24 09:35 03/13/24 05:40 A&P Assessment and plan (1) ESRD (end stage renal disease) on dialysis: 68 year old gentleman ESRD, combined systolic and diastolic dysfunction, obstructive sleep apnea, atrial fibrillation, hypertension. Patient is POD #1 status post L2 to pelvis fusion. 1. ESRD -continue dialysis on Tuesday schedule via AV fistula 2. Hypertension. Can restart Norvasc 5 mg daily 3. Anemia likely postop losses. Will monitor hemoglobin. Can check iron studies. 4. Heartburn agree with PPI. 5. Electrolytes reviewed 6. Diabetic control as per PMD. Case discussed with the patient and nurse. The patient was seen and examined using A/V equipment. The patient consented to telehealth and to dialysis as needed. Plan Postop care as per orthopedics. ESRD dialysis tomorrow. Monitor blood pressure. Monitor hemoglobin. Epogen as needed. Attestations 2 Medical Necessity Statement*: As per orthopedics. Time Spent in Patient Care: 16 - 35 minutes (>than 50% of time sp ent in counselling and/or direct pt care on unit) . Coding Level of Care Code Acute Code for [facility] Fwd Diagnoses ESRD (end stage renal disease) on dialysis N18.6; Z99.2
[2024-03-13 07:45] LABS: Slide Review Slide Review Perform
[2024-03-13 07:47] LABS: Hepatitis B Surface AB 9.3 (11.5-1000); Hepatitis B Surface Antigen Non-Reactive (Nonreactive); Hepatitis C Virus Antibody Reactive (Nonreactive)
[2024-03-13] MEDS: budesonide 0.5 mg/2 mL Neb INHALATION ×2 (07:57→21:01)
[2024-03-13] MEDS: ipratropium-albuterol 3 mL Neb INHALATION (07:57)
[2024-03-13] MEDS: albuterol 2.5 mg/3 mL Neb INHALATION ×3 (08:13→21:01)
[2024-03-13] MEDS: HYDROcodone-acetaminophen 5-325 mg Tablet PO ×2 (08:41→20:17)
[2024-03-13] MEDS: docusate sodium 100 mg Capsule PO ×2 (08:42→17:14)
[2024-03-13] MEDS: carvedilol 25 mg Tablet PO ×2 (08:42→17:14)
[2024-03-13] MEDS: calcium acetate 667 mg Capsule 1334 MG PO ×3 (08:42→17:14)
[2024-03-13] MEDS: heparin 5,000 unit/mL INJ 1 mL 5000 UNIT SUBCUT ×2 (08:43→20:23)
[2024-03-13] MEDS: hyDRALAzine 25 mg Tablet PO ×2 (08:43→17:14)
[2024-03-13] MEDS: pantoprazole DR 40 mg Tablet PO ×2 (08:43→17:15)
[2024-03-13] MEDS: atorvastatin 40 mg Tablet 20 MG PO (08:43)
[2024-03-13] MEDS: sucralfate 1 gm Tablet PO (08:48)
--- NOTE | 2024-03-13 09:44 | P.PN_ITS ---
Subjective 2 Subjective: Patient is seen and examined. Consult for medical management. He has end-stage renal disease on hemodialysis, hypertension, etc. Had a lumbar surgery yesterday, fusion by orthopedic spine surgery. Reports his pain is better, he has been up and walking. Medications: Reviewed: Yes Vitals/I&O/Wt Last Vital Signs Temp 97.5 F L 03/13/24 07:15 Pulse 84 03/13/24 08:13 Resp 16 03/13/24 08:00 BP 147/100 03/13/24 07:15 Pulse Ox 98 03/13/24 08:00 O2 Del Method Nasal Cannula 03/13/24 08:00 O2 Flow Rate 3 03/13/24 08:00 03/12/24 03/13/24 03/13/24 22:59 06:59 14:59 Intake Total 1126 / 1126 240 / 240 Output Total 1950 / 2475 200 / 2675 100 / 100 Balance -824 / -1349 -200 / -1549 140 / 140 Weight last 48 hrs Weight 68.402 kg Weight 68.2 kg Weight 70.76 kg Weight 70.76 kg Physical Exam 2 Narrative: General Exam no distress Neck is supple Cardiovascular regular rate and rhythm Lungs clear Abdomen soft Extremities no cyanosis clubbing or edema, thrill and bruit is noted left upper extremity AV fistula Urinary Catheter Management: Latex Free: Cath Placed During This Visit: yes, but has since been removed by the nurse Reason for Continuing Indwelling Catheter: Decision to DC Catheter Urinary Catheter Date of Insertion: 03/12/24 Urinary Catheter Time of Insertion: 11:15 Date Urinary Catheter Removed: 03/13/24 Time Urinary Catheter Discontinued: 06:16 Data 03/13/24 05:40 03/13/24 05:40 A&P Assessment and plan (1) Status post lumbar spinal fusion: Postoperative day #1, doing well (2) ESRD (end stage renal disease) on dialysis: Receives hemodialysis services Tuesday Coronary artery disease, asymptomatic currently Anemia, stable Multiple other medical problems as outlined in past medical history Plan Repeat laboratory tomorrow Continue physical therapy Surgery will decide when discharge is appropriate. Attestations 2 Medical Necessity Statement*: As per primary Diagnoses Status post lumbar spinal fusion Z98.1 ESRD (end stage renal disease) on dialysis N18.6; Z99.2
--- NOTE | 2024-03-13 10:45 | PC.CHAP ---
Pastoral Care Encounter/Spiritual Assessment Type of Contact [] Declined technology engineer visit [] Patient/Family/Request visit [] Outpatient visit [] Follow-up visit [] Physician referral [] Code/Alert [] Routine visit [] Staff referral [] Actively dying [] Patient sleeping [] Family support [] [] Out of room [] Palliative care [] [x] Receiving care in room [] Pre-surgical visit [] Trauma [] Long length of stay [] ICU visit [] Other: Relational/Emotional Strength [] Patient feels connected with others/family/visitors/staff [] Distress [] Loneliness/isolation [] Abandonment Spirituality of Patient [] Person of Shamika [] Attends Adventism of their [place] [] Believes in Prayer [] Reads Bible or Moravian materials [] There are Spiritual issues to be addressed Wildlife Control Agent Interventions [] Prayer [] Active listening [] Non-anxious presence [] Spiritual/emotional support [] Crisis/trauma care [] Spiritual counseling [] Bereavement support [] Provided bereavement packet [] Provided Bible/devotional materials [] Provided toy/stuffed animal, coloring book to patient or family member [] Provided Communion [] Anointing/[place] [] Salvation [] Completed spiritual assessment [] Other: Impact on Illness or Injury [] Angry [] Fearful [] Anxious [] Often cries [] Exhaustion [] Unable to work [] Unable to attend caodaism [] Unable to walk/stand [] Unable to read [] Unable to drive [] Unable to eat/drink [] Unable to sleep [] Unable to be with family [] Patient intubated [] Other: Summary Time spent with patient
[2024-03-13] MEDS: sucralfate 1 gm/10 mL Oral Liq UDC PO ×3 (11:02→20:19)
[2024-03-13] MEDS: ketorolac 30 mg/mL INJ IVP (17:15)
[2024-03-13] MEDS: CLONazepam 0.5 mg Tablet 0.25 MG PO (17:15)
[2024-03-13] MEDS: ondansetron 2 mg/ML SDV 2 mL 4 MG IVP (17:19)
[2024-03-13] MEDS: zolpidem 5 mg Tablet 10 MG PO (20:17)
[2024-03-13] MEDS: mirtazapine 15 mg Tablet PO (20:18)
[2024-03-14] VITALS (9 sets, daily range): BP systolic 98–196; BP diastolic 62–76; PULSE 69–94; RESP 16–20; TEMP 36.4–36.7; O2SAT 85–99
[2024-03-14] MEDS: HYDROcodone-acetaminophen 5-325 mg Tablet PO (03:14)
[2024-03-14 06:08] LABS: Basophils # 0.1 10^3/uL (0.0-0.1); Basophils % 0.7 %; Eosinophils # 0.2 10^3/uL (0.0-0.8); Hematocrit 29.8 % (37-53); Lymphocytes # 1.2 10^3/uL (0.8-4.8); Lymphocytes % 16.6 %; Mean Corpuscular HGB Conc 31.5 g/dL (30-55); Mean Corpuscular Volume 101.4 fl (82-101); Mean Platelet Volume 10.6 fL (7.4-10.4); Monocytes # 0.6 10^3/uL (0.2-0.9); Monocytes % 8.2 %; Neutrophils # 5.31 10^3/uL (1.8-7.7); Neutrophils % 71.2 %; Nucleated Red Blood Cells % 0.5 %; Platelet Count 137 10^3/cmm (157-399); Red Blood Count 2.94 10^6/uL (3.85-5.65); Red Cell Distribution Width 17.6 % (12.1-15.1); White Blood Count 7.45 10^3/uL (3.29-11.43)
[2024-03-14 06:33] LABS: Calcium 8.5 mg/dL (8.5-10.5)
--- NOTE | 2024-03-14 06:33 | PM.DCS ---
Discharge Providers Date of Admission: 03/12/24 18:02 Date of Discharge: March 14, 2024 Attending Provider at Admission: James Jj DO Attending Provider at Discharge: James Jj DO Primary Care Provider: Kian Colon MD Diagnoses at Discharge Discharge Diagnosis (1) Status post lumbar spinal fusion: Status: Acute (2) ESRD (end stage renal disease) on dialysis: Status: Acute Physical Exam Narrative: Patient doing well pain significant proved was ambulating yesterday Urinary Catheter Management: Latex Free: Cath Placed During This Visit: yes, but has since been removed by the nurse Reason for Continuing Indwelling Catheter: Decision to DC Catheter Urinary Catheter Date of Insertion: 03/12/24 Urinary Catheter Time of Insertion: 11:15 Date Urinary Catheter Removed: 03/13/24 Time Urinary Catheter Discontinued: 06:16 Discharge Data Studies Completed and Pending Completed Studies During Hospitalization Category Date Time Status XR lumbar spine 2-3V* [id number] Routine Exams 03/12/24 00:00 Completed Pending at discharge Category Date Time Status Complete Blood Count w/Auto AM LABS Lab 03/15/24 04:00 Ordered Complete Blood Count w/Auto AM LABS Lab 03/16/24 04:00 Ordered Comprehensive Metabolic Panel AM LABS Lab 03/14/24 05:37 Received Comprehensive Metabolic Panel AM LABS Lab 03/15/24 04:00 Ordered Comprehensive Metabolic Panel AM LABS Lab 03/16/24 04:00 Ordered Ferritin AM LABS Lab 03/14/24 05:37 Received Hepatitis C RNA Viral Load Qnt Routine Lab 03/13/24 08:47 Received Magnesium AM LABS Lab 03/14/24 05:37 Received Magnesium AM LABS Lab 03/15/24 04:00 Ordered Magnesium AM LABS Lab 03/16/24 04:00 Ordered PTH [Parathyroid With Calcium] AM LABS Lab 03/14/24 05:37 Received Phosphorus AM LABS Lab 03/14/24 05:37 Received Phosphorus AM LABS Lab 03/15/24 04:00 Ordered Phosphorus AM LABS Lab 03/16/24 04:00 Ordered Total Iron Binding Capacity AM LABS Lab 03/14/24 05:37 Received Laboratory Results WBC 7.45 10^3/uL (3.29-11.43) 03/14/24 05:37 RBC 2.94 10^6/uL (3.85-5.65) L 03/14/24 05:37 Hgb 9.40 g/dL (11.27-16.99) L 03/14/24 05:37 Hct 29.8 % (37-53) L 03/14/24 05:37 MCV 101.4 fl (82-101) H 03/14/24 05:37 MCH 32.0 pg (27-33) 03/14/24 05:37 MCHC 31.5 g/dL (30-55) 03/14/24 05:37 RDW 17.6 % (12.1-15.1) H 03/14/24 05:37 Plt Count 137 10^3/cmm (157-399) L 03/14/24 05:37 MPV 10.6 fL (7.4-10.4) H 03/14/24 05:37 Neut % (Auto) 71.2 % 03/14/24 05:37 Lymph % (Auto) 16.6 % 03/14/24 05:37 Saline % (Auto) 8.2 % 03/14/24 05:37 Eos % (Auto) 3.0 % 03/14/24 05:37 Baso % (Auto) 0.7 % 03/14/24 05:37 Neut # (Auto) 5.31 10^3/uL (1.8-7.7) 03/14/24 05:37 Lymph # (Auto) 1.2 10^3/uL (0.8-4.8) 03/14/24 05:37 Saline # (Auto) 0.6 10^3/uL (0.2-0.9) 03/14/24 05:37 Eos # (Auto) 0.2 10^3/uL (0.0-0.8) 03/14/24 05:37 Baso # (Auto) 0.1 10^3/uL (0.0-0.1) 03/14/24 05:37 Nucleated RBC % (auto) 0.5 % 03/14/24 05:37 Nucleated RBCs # 0.0 /100WBC 03/14/24 05:37 Sodium 142 mmol/L (136-145) 03/13/24 05:40 Potassium 3.7 mmol/L (3.5-5.1) 03/13/24 05:40 Chloride 101 mmol/L (98-107) 03/13/24 05:40 Carbon Dioxide 27 mmol/L (22-29) 03/13/24 05:40 Anion Gap 17.7 (5-19) 03/13/24 05:40 BUN 29 mg/dL (8-23) H 03/13/24 05:40 Creatinine 5.8 mg/dL (0.7-1.2) H* 03/13/24 05:40 GFR Calculation 11.8 mL/min (90-130) L 03/13/24 05:40 Glucose 186 mg/dL (65-115) H 03/13/24 05:40 Calculated Osmolality 305 mOsm/kg (285-295) H 03/13/24 05:40 Calcium 8.7 mg/dL (8.5-10.5) 03/13/24 05:40 Total Bilirubin 0.5 mg/dL (0.15-1.2) 03/12/24 09:35 AST 24 U/L (0-40) 03/12/24 09:35 ALT 14 U/L (0-41) 03/12/24 09:35 Alkaline Phosphatase 124 U/L (40-130) 03/12/24 09:35 Total Protein 7.1 g/dL (6.6-8.7) 03/12/24 09:35 Albumin 4.0 g/dL (3.5-5.2) 03/12/24 09:35 Globulin 3.1 g/dL (1.3-4.6) 03/12/24 09:35 Hep Bs Antigen Non-reactive (Nonreactive) 03/13/24 05:40 Hep Bs Antibody 9.3 (11.5-1000) L 03/13/24 05:40 Hepatitis C Antibody Reactive (Nonreactive) H 03/13/24 05:40 Blood Type O Positive 03/12/24 12:12 Rho(D) Type Rh positive 03/12/24 12:12 Antibody Screen Negative 03/12/24 12:12 Vitals Last Vital Signs Temp 98.0 F 03/14/24 00:00 Pulse 79 03/14/24 03:57 Resp 16 03/14/24 03:57 BP 114/73 03/14/24 03:57 Pulse Ox 99 03/14/24 03:57 O2 Del Method Nasal Cannula 03/14/24 03:57 O2 Flow Rate 2 03/13/24 20:27 Discharge Plan Discharge Patient Disposition: Home Condition: Stable Prescriptions: New hydrocodone-acetaminophen 5-325 mg tablet 1 - 2 tab PO .Q4-6H Qty: 40 0RF Continued (DME) spacer for Albuterol inhaler See Rx Instructions .Route .MEDSUPPLY Qty: 1 0RF Rx Instructions: As directed (DME) Nebulizer & supplies See Rx Instructions .Route .MEDSUPPLY Qty: 1 1RF Rx Instructions: As directed amlodipine 2.5 mg tablet 2.5 mg PO DAILY Qty: 90 1RF albuterol sulfate 2.5 mg /3 mL (0.083 %) solution for nebulization 2.5 mg INHALATION QID PRN (Reason: Shortness Of Breath) Qty: 180 5RF albuterol sulfate 90 mcg/actuation HFA aerosol inhaler 2 puff INHALATION Q6H PRN (Reason: Shortness Of Breath) Qty: 8.5 3RF Rx Instructions: NEEDS APPT PRIOR TO FURTHER REFILLS atorvastatin 20 mg tablet 20 mg PO DAILY Qty: 90 1RF calcium acetate(phosphat bind) 667 mg capsule 1,334 mg PO TID Qty: 540 3RF carvedilol 25 mg tablet 25 mg PO BID 30 Days Qty: 180 0RF Rx Instructions: must administer with a meal/food docusate sodium 250 mg capsule 250 mg PO DAILY PRN (Reason: Constipation) Qty: 90 3RF mirtazapine [Remeron] 15 mg tablet 15 mg PO .qhs Qty: 90 1RF nitroglycerin [Nitrostat] 0.4 mg tablet, sublingual 0.4 mg SUBLINGUAL Q5M PRN (Reason: Chest Pain) 30 Days Qty: 30 0RF zolpidem [Ambien] 10 mg tablet 10 mg PO .q hs PRN (Reason: sleep) Qty: 30 2RF Rx Instructions: Tried to take only one every other night (DME) home oxygen 2L/min 2 L/min flow See Rx Instructions .Route .MEDSUPPLY Qty: 1 0RF Rx Instructions: As directed pantoprazole [Protonix] 40 mg tablet,delayed release (DR/EC) 40 mg PO BID Qty: 60 0RF sucralfate [Carafate] 1 gram tablet 1 g PO BID Qty: 60 0RF (DME) CPAP 6-16cm setting See Rx Instructions .ROUTE .MEDSUPPLY Qty: 1 0RF Rx Instructions: As directed (DME) Cane See Rx Instructions .Route .MEDSUPPLY Qty: 1 0RF Rx Instructions: As directed Reglan 10 mg tablet 10 mg PO BID PRN (Reason: Nausea) Qty: 180 2RF RenaPlex-D 800 mcg-12.5 mg -2,000 unit tablet 1 tab PO DAILY Qty: 90 3RF (DME) Walker See Rx Instructions .Route .MEDSUPPLY Qty: 1 0RF Rx Instructions: As directed (DME) Wheel Chair, medium See Rx Instructions .Route .MEDSUPPLY Qty: 1 0RF Rx Instructions: As directed (DME) Aerochamber Plus Flow-Vu Spacer See Rx Instructions .Route Qty: 1 0RF Rx Instructions: As directed (DME) CPAP mask, tubing, supplies See Rx Instructions .ROUTE .MEDSUPPLY Qty: 1 1RF Rx Instructions: As directed fluticasone propion-salmeterol [Advair Diskus] 250-50 mcg/dose blister with device 1 inh inhalation BID Qty: 60 3RF hydralazine 50 mg tablet 75 mg PO TID Qty: 405 3RF Combivent Respimat 20-100 mcg/actuation mist 1 puff inhalation Q4H PRN (Reason: wheezing) 30 Days Qty: 4 4RF cefadroxil 500 mg capsule 500 mg PO .MWF Rx Instructions: orally daily; Take one capsule on Tuesday, Tuesday, and Tuesday. Held aspirin 81 mg tablet,delayed release (DR/EC) 81 mg PO DAILY Qty: 90 3RF Hold Instructions: Resume on 03/15/24. Discontinued tramadol 50 mg tablet 50 mg PO DAILY PRN (Reason: pain, severe) Qty: 30 2RF Rx Instructions: Refill on or after 30 days clonazepam 0.5 mg tablet 0.25 mg PO BID Qty: 60 2RF Discharge Orders: Discharge Order (Routine); Ordered 03/14/24 Ordered By: James Jj Other Ambulatory Orders: Physical Therapy Eval and Treat Outpatient (Order) Timeframe: 3 Weeks Facility: [facility] - Location: Physical Therapy Ordered By: James Jj Discharge Diet: Advance as tolerated Discharge Activity: Limit activity as instructed Patient Instructions: Dialysis Nutrition Plan (DC), Acute Wound Care (DC), Hemodialysis (DC), Opioid Safety, Post Anesthesia Care Activity Restrictions/Additional Instructions: Restart clonazepam when you get home Thank you for [facility] for your care! The following is a list of instructions, from your provider, to follow upon your discharge to ensure you have the optimal recovery from your recent injury orsurgery. Follow-up care is a rios part of your treatment and safety. Be sure to make and go to all appointments, and call your doctor if you are having problems. If you do not already have a follow-up appointment made, call Dr. Jj office in the next 1-3 days to make follow up appointment for 1 weeks at [phone]. It is also a good idea to know your test results and keep a list of the medicines you take. Medications will be prescribed for you at your provider's discretion. These medications are to be used as instructed; if they are taken more often that prescribed they will not be refilled early and in most cases will not be refilled at all. > When a refill is needed,you should contact meseret friedman 2-3 business days before your prescription runs out. Medications will NOT be refilled by relationship advisor providers after hours! > Many pain medications contain Tylenol (Acetaminophen). Do not consume more than 4,000 mg of Tylenol per day in total with any combination ofmedications. > Pain medications can cause constipation. Please use an over the counter stool softener as directed, while taking pain medications. Consulty our local pharmacist with questions or recommendations on stool softeners. If constipation persists, contact our office or your primary care provider. > While under our care,you are not to receive pain medications or other controlled substances from any other provider unless our office is notified and approves. Any attempts to do so will result in refusal to prescribe any further pain medications and possible dismissal from our practice. ? We will change the dressing clinic in 1 week. ? Showering is permitted, however we ask that you do not take a bath, sit in a whirlpool / Jacuzzi, or go swimming for 1 month. For only the first 2 days after surgery, lt wilt be necessary for you to cover your wound/dressing with plastic and tape to keep it dry. ? Walking is essential for the healing process after surgery. We would like you to slowly advance your walking. This should be done on relatively flat clear ground (inside or out) or can be done on a treadmill. Remember this goal does not have to happen all at once, slowly increase your distance and duration. This can be broken into more more than one walk per day as tolerated. Patients who walk as directed after surgery rarely require Physical Therapy. In the unlikely event this issue arises your provider will direct hospital staff to make the appropriate arrangements. ? No lifting over 5 pounds {a gallon of milk) or bending/twisting until further notice. Each of these activities places an unnecessary amount of stress onto the body and can impede the delicate healing process. > Instead of bending at the waist, keep your back straight and bend at the knees. > Instead of twisting your torso, keep your back straight and turn your entire body with your feet. ? You may sleep in any position which makes you comfortable. Many patients find comfort sleeping in a reclining chair. It is not abnormal to have difficulty sleeping for the first several weeks following your surgery. We recommend trying Benadry! or Tylenol PM as directed to help with your sleeping difficulties. Both medications are over the counter and available withoutprescription. ? NO SMOKING!!! Smoking dramatically increases the probability of developing postoperative wound infections. ? Common complaints after lumbar and/or thoracic spine surgery include, but are not limited to: numbness and/or tingling in the legs, pain around the incision and surrounding tissues, muscle spasms, or stiffness of the middle to low back. Contact our office if these symptoms persist or if an acute change occurs. ? No driving for the first 3-5days, and not while taking narcotics [] until seen at your follow-up appointment and cleared. There are no restrictions for riding on short trips, however if you take a longer trip, arrangements should be made to make regular stops to get out of the vehicle and stretch . ? Swelling is an unfortunate event that will take place with any surgery and is the primary source of your postoperative discomfort. While walking and regular approved activities helps control inflammation, there are additional steps you can take to minimizeswelling. > Place ice over the surgical site and surrounding tissue for twenty minutes, followed by applying a low/medium heat (heating pad) for an additional twenty minutes every 1-2 hours as needed for painrelief. > You may use of over the counter anti-inflammatory medications (Ibuprofen, Motrin, Aleve, Advil, etc) as directed on the package label. These types of medicines wm significantly reduce the amount of discomfort you experience after surgery from swelling. It should be noted that if you have and allergy to any of these medications, or a history of ulcers or kidney disease you should consult you primary care provider prior to starting these medications. Discharge Attestations Time Spent in Discharge Care*: less than 30 min Quality Metrics Clinical Quality Measures [ No reported AMI, CVA or VTE this stay] Coding Level of Care Code Acute Code for Chg Fwd Diagnoses Status post lumbar spinal fusion Z98.1 ESRD (end stage renal disease) on dialysis N18.6; Z99.2
[2024-03-14 06:34] LABS: Alanine Aminotransferase < 5 U/L (0-41); Albumin Level 3.6 g/dL (3.5-5.2); Alkaline Phosphatase 113 U/L (40-130); Aspartate Amino Transferase 16 U/L (0-40); Blood Urea Nitrogen 37 mg/dL (8-23); Calcium 8.6 mg/dL (8.5-10.5); Carbon Dioxide 27 mmol/L (22-29); Chloride 101 mmol/L (98-107); Creatinine Clr Calc Pharmacy 10.3132; Ferritin 699 ng/mL (30-400); Glomerular Filtration Rate 9.7 mL/min (90-130); Glucose 97 mg/dL (65-115); Iron 46 ug/dL (59-158); Magnesium 2.2 mg/dL (1.7-2.3); Osmolality Calculated 301 mOsm/kg (285-295); Phosphorus 4.6 mg/dL (2.5-4.5); Sodium 141 mmol/L (136-145); Total Bilirubin 0.2 mg/dL (0.15-1.2); Total Iron Binding Capacity 255 mcg/dl; Total Protein 6.6 g/dL (6.6-8.7); Unsaturated Iron Binding 209 ug/dL (112-347)
--- NOTE | 2024-03-14 07:14 | PC.NURSE ---
Hemovac Removed: Hemovac removed @0713. Pt tolerated well. Gauze applied, secured with tegaderm.
[2024-03-14] MEDS: albuterol 2.5 mg/3 mL Neb INHALATION ×2 (08:59→15:00)
[2024-03-14] MEDS: budesonide 0.5 mg/2 mL Neb INHALATION (08:59)
[2024-03-14] MEDS: carvedilol 25 mg Tablet PO (09:04)
[2024-03-14] MEDS: docusate sodium 100 mg Capsule PO (09:04)
[2024-03-14] MEDS: pantoprazole DR 40 mg Tablet PO (09:04)
[2024-03-14] MEDS: CLONazepam 0.5 mg Tablet 0.25 MG PO (09:05)
[2024-03-14] MEDS: atorvastatin 40 mg Tablet 20 MG PO (09:06)
[2024-03-14] MEDS: heparin 5,000 unit/mL INJ 1 mL 5000 UNIT SUBCUT (09:06)
[2024-03-14] MEDS: sucralfate 1 gm/10 mL Oral Liq UDC PO ×2 (09:06→11:25)
[2024-03-14] MEDS: calcium acetate 667 mg Capsule 1334 MG PO (09:15)
--- NOTE | 2024-03-14 09:32 | PM.PN ---
Subjective Subjective: The patient was seen and examined. Patient feeling better. Patient is looking forward to going home or rehab. Patient is requesting dialysis prior to discharge. No nausea vomiting or diarrhea. Medications: Reviewed: Yes Medication Review Details: Current Medications Acetaminophen (Acetaminophen 325 Mg Tablet) 650 mg PO Q4H PRN PRN Reason: Mild Pain or fever >101.5 Hydrocodone Bitart/Acetaminophen (Hydrocodone-Acetaminophen 5-325 Mg Tablet) 1 - 2 tab PO Q4H PRN PRN Reason: MODERATE TO SEVERE PAIN Last Admin: 03/14/24 03:14 Dose: 2 tab Albuterol Sulfate (Albuterol 2.5 Mg/3 Ml Neb) 2.5 mg INHALATION QID PRN PRN Reason: Shortness Of Breath Albuterol Sulfate (Albuterol 2.5 Mg/3 Ml Neb) 2.5 mg INHALATION QID.RESPIRATORY VENUS Last Admin: 03/14/24 08:59 Dose: 2.5 mg Albuterol/Ipratropium (Ipratropium-Albuterol 3 Ml Neb) 3 ml INHALATION Q4H PRN PRN Reason: SHORTNESS OF BREATH Last Admin: 03/13/24 07:57 Dose: 3 ml Atorvastatin Calcium (Atorvastatin 40 Mg Tablet) 20 mg PO DAILY VENUS Last Admin: 03/14/24 09:06 Dose: 20 mg Budesonide (Budesonide 0.5 Mg/2 Ml Neb) 0.5 mg INHALATION BID.RESPIRATORY VENUS Last Admin: 03/14/24 08:59 Dose: 0.5 mg Calcium Acetate (Calcium Acetate 667 Mg Capsule) 1,334 mg PO TIDWM VENUS Last Admin: 03/14/24 09:15 Dose: 1,334 mg Carvedilol (Carvedilol 25 Mg Tablet) 25 mg PO BID VENUS Last Admin: 03/14/24 09:04 Dose: 25 mg Clonazepam (Clonazepam 0.5 Mg Tablet) 0.25 mg PO BID VENUS Last Admin: 03/14/24 09:05 Dose: 0.25 mg Docusate Sodium (Docusate Sodium 100 Mg Capsule) 100 mg PO BID VENUS Last Admin: 03/14/24 09:04 Dose: 100 mg Heparin Sodium (Porcine) (Heparin 5,000 Unit/Ml Inj 1 Ml) 5,000 unit SUBCUT Q12H VENUS Last Admin: 03/14/24 09:06 Dose: 5,000 unit Hydralazine HCl (Hydralazine 25 Mg Tablet) 25 mg PO TID [facility] Last Admin: 03/13/24 17:14 Dose: 25 mg Albumin Human (Albumin) 12.5 gm in 50 mls @ 60 mls/hr IV PRN PRN PRN Reason: Hypotension and/or symptomatic Ketorolac Tromethamine (Ketorolac 30 Mg/Ml Inj) 30 mg IVP Q6H PRN PRN Reason: BREAKTHROUGH PAIN Last Admin: 03/13/24 17:15 Dose: 30 mg Magnesium Hydroxide (Magnesium Hydroxide 30 Ml Udc) 30 ml PO Q4H PRN PRN Reason: Constipation/indigestion Metoclopramide HCl (Metoclopramide 10 Mg Tablet) 10 mg PO BID PRN PRN Reason: Nausea Mirtazapine (Mirtazapine 15 Mg Tablet) 15 mg PO BEDTIME [facility] Last Admin: 03/13/24 20:18 Dose: 15 mg Morphine Sulfate (Morphine 4 Mg/Ml Sdv 1 Ml) 2 mg IVP Q1H PRN PRN Reason: SEVERE PAIN Last Admin: 03/13/24 17:16 Dose: 2 mg Nitroglycerin (Nitroglycerin 0.4 Mg Sublingual Tablet) 0.4 mg SUBLINGUAL Q5M PRN PRN Reason: Chest Pain Non-Formulary Medication (Vit B,Z-Rt-Mhug-Selen-Vit D3-E [Renaplex-D]) 1 tab PO DAILY [facility] Non-Formulary Medication (Cefadroxil) 500 mg PO MoWeFr [facility] Non-Formulary Medication (Docusate Sodium) 250 mg PO DAILY PRN PRN Reason: Constipation Ondansetron HCl (Ondansetron 2 Mg/Ml Sdv 2 Ml) 4 mg IVP Q6H PRN PRN Reason: NAUSEA AND VOMITING Last Admin: 03/13/24 17:19 Dose: 4 mg Pantoprazole Sodium (Pantoprazole Dr 40 Mg Tablet) 40 mg PO BID [facility] Last Admin: 03/14/24 09:04 Dose: 40 mg Sucralfate (Sucralfate 1 Gm/10 Ml Oral Liq Udc) 1 gm PO AC&BEDTIME [facility] Last Admin: 03/14/24 09:06 Dose: 1 gm Zolpidem Tartrate (Zolpidem 5 Mg Tablet) 10 mg PO BEDTIME PRN PRN Reason: sleep Last Admin: 03/13/24 20:17 Dose: 10 mg Vitals/I&O/Wt Last Vital Signs Temp 97.6 F 03/14/24 07:42 Pulse 91 03/14/24 09:00 Resp 20 H 03/14/24 09:00 BP 104/68 03/14/24 07:42 Pulse Ox 85 L 03/14/24 09:00 O2 Del Method Room Air 03/14/24 09:00 O2 Flow Rate 2 03/13/24 20:27 03/13/24 03/14/24 03/14/24 22:59 06:59 14:59 Intake Total 410 / 768 0 / 768 360 / 360 Output Total 125 / 225 110 / 335 25 / Balance 285 / 543 -110 / 433 335 / 335 Weight last 48 hrs Weight 68.402 kg Weight 68.402 kg Weight 68.2 kg Weight 70.76 kg Physical Exam Narrative: The patient was seen using audiovisual equipment with the aid of a nurse. The patient is comfortable no apparent distress vital signs noted. BP low HEENT normocephalic atraumatic. Neck is supple. Lungs clear to auscultation bilaterally Heart regular positive S1-S2. Abdomen is soft positive bowel sounds. Positive bandages. Extremities no significant edema. Left upper extremity AV fistula with thrill and bruit. Neuro awake alert oriented x 3 moves extremities. Urinary Catheter Management: Latex Free: Cath Placed During This Visit: yes, but has since been removed by the nurse Reason for Continuing Indwelling Catheter: Decision to DC Catheter Urinary Catheter Date of Insertion: 03/12/24 Urinary Catheter Time of Insertion: 11:15 Date Urinary Catheter Removed: 03/13/24 Time Urinary Catheter Discontinued: 06:16 Data 03/14/24 05:37 03/14/24 05:37 A&P Assessment and plan (1) ESRD (end stage renal disease) on dialysis: 68 year old gentleman ESRD, combined systolic and diastolic dysfunction, CAD, obstructive sleep apnea, atrial fibrillation, hypertension. Patient is POD #2 status post L2 to pelvis fusion. 1. ESRD -continue dialysis on Tuesday schedule via AV fistula 2. BP low- no anti-htn meds 3. hypoxemia- monitor if improves with dialysis. Please do not discharge unless oxygenation improves 4. Anemia likely postop losses. ferritin 699 iron sat 18%- epo and iv iron while in hospital. 5. Heartburn improving with PPI. 6. Diabetic control as per PMD. Case discussed with the patient and Dr Calvillo The patient was seen and examined using A/V equipment. The patient consented to telehealth and to dialysis as needed. Plan Postop care as per orthopedics. ESRD dialysis today. Monitor blood pressure. Monitor oxygenation Attestations Medical Necessity Statement*: per orthopedics Time Spent in Patient Care: 16 - 35 minutes (>than 50% of time spent in counselling and/or direct pt care on unit). Coding Level of Care Code Acute Code for Chg Fwd Diagnoses ESRD (end stage renal disease) on dialysis N18.6; Z99.2
--- NOTE | 2024-03-14 09:34 | PC.CHAP ---
Pastoral Care Encounter/Spiritual Assessment Type of Contact [] Declined assistant director of residence life visit [] Patient/Family/Request visit [] Outpatient visit [] Follow-up visit [] Physician referral [] Code/Alert [x] Routine visit [] Staff referral [] Actively dying [] Patient sleeping [] Family support [] [] Out of room [] Palliative care [] [] Receiving care in room [] Pre-surgical visit [] Trauma [] Long length of stay [] ICU visit [] Other: Relational/Emotional Strength [x] Patient feels connected with others/family/visitors/staff [] Distress [] Loneliness/isolation [] Abandonment Spirituality of Patient [x] Person of Shamika [] Attends Faith of their [place] [x] Believes in Prayer [] Reads Bible or Buddhism materials [] There are Spiritual issues to be addressed Forest Pathologist Interventions [x] Prayer [] Active listening [x] Non-anxious presence [x] Spiritual/emotional support [] Crisis/trauma care [] Spiritual counseling [] Bereavement support [] Provided bereavement packet [] Provided Bible/devotional materials [] Provided toy/stuffed animal, coloring book to patient or family member [] Provided Communion [] Anointing/[place] [] Salvation [x] Completed spiritual assessment [] Other: Impact on Illness or Injury [] Angry [] Fearful [] Anxious [] Often cries [] Exhaustion [] Unable to work [] Unable to attend nondenominational [] Unable to walk/stand [] Unable to read [] Unable to drive [] Unable to eat/drink [] Unable to sleep [] Unable to be with family [] Patient intubated [] Other: Summary Time spent with patient 5 min
--- NOTE | 2024-03-14 09:50 | P.PN_ITS ---
Subjective 2 Subjective: No issues overnight. Denies being short of breath. Feels like he is getting up and around okay. Medications: Reviewed: Yes Vitals/I&O/Wt Last Vital Signs Temp 97.6 F 03/14/24 07:42 Pulse 91 03/14/24 09:00 Resp 20 H 03/14/24 09:00 BP 104/68 03/14/24 07:42 Pulse Ox 85 L 03/14/24 09:00 O2 Del Method Room Air 03/14/24 09:00 O2 Flow Rate 2 03/13/24 20:27 03/13/24 03/14/24 03/14/24 22:59 06:59 14:59 Intake Total 410 / 768 0 / 768 360 / 360 Output Total 125 / 225 110 / 335 Balance 285 / 543 -110 / 433 335 / 335 Weight last 48 hrs Weight 68.402 kg Weight 68.402 kg Weight 68.2 kg Weight 70.76 kg Physical Exam 2 Narrative: General Exam no distress. His oxygen saturation is 90% right upper extremity on room air Neck is supple Cardiovascular regular rate and rhythm Lungs clear Abdomen soft Extremities no cyanosis clubbing or edema, thrill and bruit is noted left upper extremity AV fistula Urinary Catheter Management: Latex Free: Cath Placed During This Visit: yes, but has since been removed by the nurse Reason for Continuing Indwelling Catheter: Decision to DC Catheter Urinary Catheter Date of Insertion: 03/12/24 Urinary Catheter Time of Insertion: 11:15 Date Urinary Catheter Removed: 03/13/24 Time Urinary Catheter Discontinued: 06:16 Data 03/14/24 05:37 03/14/24 05:37 A&P Assessment and plan (1) Status post lumbar spinal fusion: Postoperative day #2, doing well (2) ESRD (end stage renal disease) on dialysis: Receives hemodialysis services Tuesday Coronary artery disease, asymptomatic currently Anemia, stable Multiple other medical problems as outlined in past medical history Dialysis planned today Plan He has used oxygen in the past. Will we will do a home O2 eval. I would recommend checking his saturation is right upper extremity. Although an AV fistula should not cause a low saturation his pulse amplitude is not reliable on that side which may disrupt his reading. Repeat laboratory tomorrow Continue physical therapy Surgery will decide when discharge is appropriate. Attestations 2 Medical Necessity Statement*: As per primary Diagnoses Status post lumbar spinal fusion Z98.1 ESRD (end stage renal disease) on dialysis N18.6; Z99.2 Time Spent (min) 24
[2024-03-14] MEDS: iron sucrose 200 MG in sodium chloride 0.9% (100 ml) 100 ML 220 MG IV (11:25)
[2024-03-14] MEDS: EPOETIN ALFA-EPBX 10,000 UNIT/ML SDV (ESRD) 10000 UNIT SUBCUT (11:27)
--- NOTE | 2024-03-14 12:06 | PC.SOCIAL ---
IMM Update Pg. 2 of IMM updated. Initialed, dated, and timed, copy provided at bedside.
--- NOTE | 2024-03-14 13:25 | PC.NURSE ---
Dialysis nurse ask this nurse not to give Calcium Acetate due to patient cannot eat right now. Patients blood pressure is low per nurse.
[2024-03-14] MEDS: heparin, porcine 1,000 unit/mL INJ 10 mL 10000 UNIT HE (13:26)
[2024-03-14 14:34] LABS: HEP C RNA Viral Load Quant <1.18 NOT DETECTED Log IU/mL (NOT DETECTED); HEP C RNA Viral Load Quant <15 NOT DETECTED IU/mL (NOT DETECTED)
--- NOTE | 2024-03-14 19:41 | PC.NURSE ---
Discussed discharge with patient along with follow up appointment. Patient is to hold aspirin and stop two medications which were marked on the discharge paperwork for patient. Patient repeated medications back to this nurse. IV was removed with catheter tip intact. Patient tolerated well. Patient verbalized understanding. In house pharmacy delivered medications and oxygen was delivered to patient at bedside. Family members came at 1944 to pick patient up.
== END 2024-03-14 19:57 | disposition home or self-care (01) | DRG 447 ==
LOC: MEDSURG 17:23
PROVIDERS: Internal Medicine; Internal Medicine Nephrology; Student in an Organized Health Care Education/Training Program; Admitting Provider Orthopaedic Surgery; PCP Family Medicine Adult Medicine; Visit Provider Orthopaedic Surgery
PROC: 0SG1071 Fusion of 2 or more Lumbar Vertebral Joints with Autologous Tissue Substitute, Posterior Approach, Posterior Column, Open Approach (ICD-10-PCS; principal; 2024-03-12 10:15)
PROC: 0SG1071 Fusion of 2 or more Lumbar Vertebral Joints with Autologous Tissue Substitute, Posterior Approach, Posterior Column, Open Approach (ICD-10-PCS; CPT 22612; 2024-03-12 10:15)
PROC: 0SG1071 Fusion of 2 or more Lumbar Vertebral Joints with Autologous Tissue Substitute, Posterior Approach, Posterior Column, Open Approach (ICD-10-PCS; 2024-03-12 10:15)
PROC: 0SG1071 Fusion of 2 or more Lumbar Vertebral Joints with Autologous Tissue Substitute, Posterior Approach, Posterior Column, Open Approach (ICD-10-PCS; CPT 27280; 2024-03-12 10:15)
DX: M48.062 Spinal stenosis, lumbar region with neurogenic claudication (principal); N18.6 End stage renal disease; I13.2 Hypertensive heart and chronic kidney disease with heart failure and with stage 5 chronic kidney disease, or end stage renal disease; I50.42 Chronic combined systolic (congestive) and diastolic (congestive) heart failure; Z99.2 Dependence on renal dialysis; Z79.51 Long term (current) use of inhaled steroids; Z86.19 Personal history of other infectious and parasitic diseases; K59.01 Slow transit constipation; Z87.891 Personal history of nicotine dependence; I25.2 Old myocardial infarction; G47.33 Obstructive sleep apnea (adult) (pediatric); D63.1 Anemia in chronic kidney disease; N40.1 Benign prostatic hyperplasia with lower urinary tract symptoms; N52.9 Male erectile dysfunction, unspecified; J44.9 Chronic obstructive pulmonary disease, unspecified; I27.20 Pulmonary hypertension, unspecified; Z86.711 Personal history of pulmonary embolism; E78.5 Hyperlipidemia, unspecified; F41.9 Anxiety disorder, unspecified; Z99.81 Dependence on supplemental oxygen; I25.10 Atherosclerotic heart disease of native coronary artery without angina pectoris; Z80.9 Family history of malignant neoplasm, unspecified; Z83.3 Family history of diabetes mellitus; Z82.0 Family history of epilepsy and other diseases of the nervous system
CPT/HCPCS: 36415; 51702; 72100; 76000; 80048; 80053; 82310; 82728; 83540; 83550; 83735; 83970; 84100; 85025; 86706; 86803; 86850; 86900; 87340; 87522; 90935; 94640; 94760; 96372; 97116; 97161; C1713; G0378; J0131; J0690; J1100; J1171; J1644; J1756; J1885; J2270; J2371; J2405; J2704; J3010; J3370; J3490; J7030; J7613; J7626; P9045; Q3014; Q5105